=== PATIENT | female | born 1935 | race Caucasian/White ===

== ENCOUNTER 2016-12-26 13:46 | Outpatient (RCR) | payer MEDICARE, OTHER ==
--- OUTSIDE RECORDS SUMMARY | 2016-10-25 14:12 | XMS REPORT | Continuity of Care Document ---
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 Joselo MARCELINO 08/06/15 10:47pm Organ Donor No 08/06/15 10:47pm Problems Active Problems Medical Problem Onset Date Status Dizziness Unknown Acute Fracture of distal end of left femur Unknown 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 Postoperative anemia due to acute blood loss Unknown Acute Medications Current Home Medications Medication Dose Units Route Directions Days/Qty Instructions Start Date Senna 1 Tab 1 Tab Oral Every 12 Hours as needed for Constipation Calcium Carbonate/Vitamin D2 1 Each 1 Tab Oral Twice A Day 08/11/14 Cetirizine Hcl 10 Mg 10 Mg Oral Bedtime 08/11/14 Cholecalciferol 1,000 Unit 1,000 Unit Oral Twice A Day 08/11/14 Mag Hydrox/Al Hydrox/Simeth 360 Ml 30 Ml Oral Every 4HRS as needed for Heartburn 08/11/14 Polyethylene Glycol 119 Gm 17 Gm Oral Daily as needed for Constipation 08/11/14 Whey Protein Isolate 1 Each 2 Pkt Oral Tid With Meals 08/11/14 Ferrous Sulfate 325 Mg 325 Mg Oral Daily 08/06/15 Fesoterodine Fumarate 4 Mg 4 Mg Oral Daily @ 2000 08/06/15 Morphine Sulfate 30 Mg 30 Mg Oral Twice A Day 08/07/15 Dextran 70/Hypromellose/Pf 1 Each 1 Drop Each Eye Four Times Daily as needed for Dry Eyes 08/07/15 Alprazolam 0.5 Mg 0.5 Mg Oral Three Times A Day 08/07/15 Oxycodone Hcl/Acetaminophen 1 Each 1-2 Tab Oral Every 4-6 Hours as needed for Pain 08/07/15 Metoclopramide Hcl 5 Mg 2.5 Mg Oral Twice A Day TAKES 1/2 (5MG) TABLET 08/07/15 Potassium Chloride 10 Meq 10 Meq Oral Twice A Day 08/07/15 Famotidine 20 Mg 20 Mg Oral Twice A Day as needed for Heartburn Escitalopram Oxalate 20 Mg 20 Mg Oral Daily 08/07/15 Montelukast Sodium 10 Mg 10 Mg Oral Daily 08/07/15 Latanoprost 2.5 Ml 1 Drop Each Eye Bedtime 08/07/15 Sodium Chloride 126 Ml 2 Mercer Nasal Twice A Day as needed for Congestion 08/07/15 Sucralfate 1 Gm 1 Gm Oral Four Times Daily as needed for Stomach Upset 08/07/15 Past Home Medications Medication Directions Ordered Status Metoprolol Succinate 100 Mg Tab.sr.24h, 50 Mg Oral Twice A Day 11/28/06 Discontinued Sucralfate 1 Gm Tab, 11/28/06 Discontinued Hydrocodone Bitartrate/Ibuprofen 1 Ea Tab, 11/28/06 Discontinued Escitalopram Oxalate 10 Mg Tablet, 11/28/06 Discontinued Famotidine 20 Mg Tab, 11/28/06 Discontinued Promethazine Hcl 25 Mg Tablet, 11/28/06 Discontinued Trazodone Hcl 100 Mg Tablet, 11/28/06 Discontinued Esomeprazole Magnesium 40 Mg Capsule.dr, 40 Mg Oral Daily 11/28/06 Discontinued Alprazolam 1 Mg Tablet, 11/28/06 Discontinued Flurbiprofen Sodium 2.5 Ml Btl, 02/12/07 Discontinued [Lactobacillus] , 02/12/07 Discontinued Salmeterol Xinafoate/Fluticasone 100 Mcg/50 Mcg Inh, 02/12/07 Discontinued Alprazolam 1 Mg Tablet, 1 Mg Oral Bedtime 02/12/07 Discontinued [Metoprolol] , 02/16/09 Discontinued [Nexium] , 02/16/09 Discontinued [Zyrtec] , 02/16/09 Discontinued [Boniva] , 02/16/09 Discontinued [Hydrocodone] , 02/16/09 Discontinued [Xanax] , 02/16/09 Discontinued [Lunesta] , 02/16/09 Discontinued Cyclobenzaprine Hcl (Flexeril) 10 Mg Tablet, 02/16/09 Discontinued Levofloxacin 500 Mg Tab, 1 Each Oral Daily 02/16/09 Discontinued Acetaminophen/Hydrocodone Bitart 1 Ea Tab, 1 Tab Oral Every 4HRS as needed Discontinued Risedronate Sodium 150 Mg Tablet, 150 Mg Oral Every Month 01/14/12 Discontinued Loratadine 10 Mg Capsule, 10 Mg Oral Daily 01/14/12 Discontinued Escitalopram Oxalate 20 Mg Tablet, 20 Mg Oral Daily 01/14/12 Discontinued Polyethylene Glycol 17 Gm Pack, 1 Dose Oral Daily 01/14/12 Discontinued Montelukast Sodium 10 Mg Tab, 1 Tab Oral Daily 01/14/12 Discontinued Estrogens Conjugated 0.625 Mg Tablet, 1 Dose Transderm Daily 01/14/12 Discontinued Simvastatin 20 Mg Tablet, 20 Mg Oral Bedtime 01/14/12 Discontinued Calcium Carbonate/Vitamin D3 1 Each Tablet, 1 Tab Oral Twice A Day 01/14/12 Discontinued Solifenacin 5 Mg Tablet, 1 Tab Oral Daily 01/14/12 Discontinued Esomeprazole Magnesium 40 Mg Capsule.dr, 40 Mg Oral Daily 01/15/12 Discontinued Sucralfate 1 G Tablet, 1 G Oral Four Times Daily 01/15/12 Discontinued Morphine Sulfate (Morphine Sulfate Ir 15 Mg) 15 Mg Tablet, 15 Mg Oral Twice A Day 01/15/12 Discontinued Darifenacin 15 Mg Tab.sr.24h, 15 Mg Oral Daily 01/15/12 Discontinued Montelukast Sodium 10 Mg Tablet, 10 Mg Oral Daily 01/15/12 Discontinued Metoprolol Succinate 25 Mg Tab.sr.24h, 12.5 Mg Oral Twice A Day 01/21/12 Discontinued Alprazolam 0.25 Mg Tablet, 1 Tab Oral Every 6 Hours as needed 01/21/12 Discontinued Citalopram Hydrobromide 40 Mg Tablet, 1 Each Oral Daily 01/21/12 Discontinued Diphenoxylate Hcl/Atropine (Lomotil) 1 Tab Tablet, 1 Each Oral Every 4HRS as needed 01/21/12 Discontinued Metronidazole 500 Mg Tab, 1 Each Oral Three Times A Day 01/21/12 Discontinued Alprazolam 1 Mg Tablet, 0.5 Mg Oral @1200 03/02/13 Discontinued Alprazolam 1 Mg Tablet, 1 Mg Oral Q A.m. 03/02/13 Discontinued Oxycodone Hcl/Acetaminophen 1 Each Tablet, 1 Tab Oral Every 4HRS as needed for Pain 03/02/13 Discontinued Solifenacin 5 Mg Tablet, 5 Mg Oral Daily 03/02/13 Discontinued Morphine Sulfate 30 Mg Cap.er.pel, 30 Mg Oral Twice A Day 03/02/13 Discontinued Calcium Carbonate 500 Mg Tab.chew, 1500 Mg Oral Daily 03/02/13 Discontinued Montelukast Sodium 10 Mg Tablet, 10 Mg Oral Bedtime 03/02/13 Discontinued Carboxymethylcellulose Sodium 1 Each Droper.gel, 1 Drop Ophthalmic As Needed 03/02/13 Discontinued Morphine Sulfate 30 Mg Cap.er.pel, 15 Mg Oral @1200 03/02/13 Discontinued Pramipexole Di-Hcl 0.25 Mg Tablet, 0.25 Mg Oral Bedtime 03/02/13 Discontinued Diclofenac Sod 100 Gm Gel, 1 Applic Topically Four Times Daily 03/02/13 Discontinued Lubiprostone 24 Mcg Capsule, 24 Mcg Oral Twice A Day 03/02/13 Discontinued Morphine Sulfate 15 Mg Tab, 15 Mg Oral Three Times A Day 05/02/13 Discontinued Alprazolam 1 Mg Tab, 1 Mg Oral 05/02/13 Discontinued Alprazolam 1 Mg Tablet, 1 Mg Oral Every 6 Hours as needed 05/02/13 Discontinued Escitalopram Oxalate 20 Mg Tablet, 20 Mg Oral Daily 05/02/13 Discontinued Alprazolam 0.5 Mg Tab.rapdis, 0.5 Mg Oral Bedtime 08/11/14 Discontinued Acetaminophen 325 Mg Tablet, 650 Mg Oral Every 4HRS as needed for Temp Or Mild Pain 08/11/14 Discontinued Bisacodyl 10 Mg Supp, 10 Mg Rectal As Needed 08/11/14 Discontinued Famotidine 20 Mg Tablet, 20 Mg Oral Twice A Day 08/11/14 Discontinued [Milk Of Magnesia] , 30 Ml Oral Every 3 Days as needed for Constipation 08/11 Discontinued Solifenacin 10 Mg Tablet, 10 Mg Oral Daily 08/11/14 Discontinued Sucralfate 1 Gm Tablet, 1 Gm Oral Four Times Daily 08/11/14 Discontinued Potassium Chloride (Micro K) 10 Meq Capsule.sa, 20 Meq Oral Daily With Food 08/11/14 Discontinued [Natural Tears] , 2 Drops Each Eye As Needed as needed for Dry Eyes 08/11/14 Discontinued [[place] Mercer] , 1 Mercer Each Nostril As Needed as needed for Dry Nose Discontinued Fluorometholone 5 Ml Susp, 1 Drop Each Eye Three Times A Day 08/11/14 Discontinued [Pain Cream] , 1-2 Oz Topically Three Times A Day as needed for Joint Pain Discontinued [Oxycodone Hcl/Acetaminophen] 1 Tab Tablet, 1-2 Tab Oral Every 4HRS as needed for Severe Pain 08/24/14 Discontinued [Warfarin Sod] 2.5 Mg Tab, 2.5-5 Mg Oral Daily@1800 08/24/14 Discontinued Esomeprazole Magnesium 40 Mg Suspdr.pkt, 40 Mg Oral 08/06/15 Discontinued Social History Social History Problem Response Recorded Date/Time Alcohol Use Denies Use 08/06/2015 10:48pm Recreational Drug Use No 08/06/2015 10:48pm Recent Foreign Travel [facility] 04/06/2016 10:53am Do you dip or chew tobacco? No 08/06/2015 10:55pm Hospital Discharge Instructions No hospital discharge instructions. Plan of Care Prescriptions See Medication Section Functional Status No functional status results. Allergies, Adverse Reactions, Alerts Allergen Type Severity Reaction Status Last Updated Aspirin Allergy Unknown Active 07/13/06 nitrofurantoin ([id number]) Allergy Unknown Active 07/13/06 adhesive tape Allergy Mild RASH Active 02/16/09 Meperidine Allergy Unknown Active 05/14/07 SURGICAL TAPE Allergy Unknown Active 05/14/07 Immunizations No immunization records. Vital Signs No known vital signs results. Results Laboratory Results Test Name Result Units Flags Reference Collection Date/Time Result Date/ Time Comments White Blood Count 4.8 10^3/uL 4.3-11.0 04/06/2016 11:05am 04/06/2016 11 :14am Red Blood Count 4.25 10^6/uL L 4.35-5.85 04/06/2016 11:05am 04/06/2016 11 :14am Hemoglobin 12.4 G/DL 11.5-16.0 04/06/2016 11:0504/06/2016 11:14am Hematocrit 41 % 35-52 04/06/2016 11:0504/06/2016 11:14am Mean Corpuscular Volume 97 FL 80-99 04/06/2016 11:04/06/2016 11: 14am Mean Corpuscular Hemoglobin 29 PG 25-34 04/06/2016 11:0504/06/2016 11:14am Mean Corpuscular Hemoglobin Concent 30 G/DL L 32-36 04/06/2016 11:05 11:14am Red Cell Distribution Width 14.3 % 10.0-14.5 04/06/2016 11:052015 11:14am Platelet Count 107 10^3/uL L 130-400 04/06/2016 11:0504/06/2016 11: 14am Mean Platelet Volume 11.5 FL H 7.4-10.4 04/06/2016 11:0504/06/2016 11: 14am Neutrophils (%) (Auto) 42 % 42-75 04/06/2016 11:0504/06/2016 11: 14am Lymphocytes (%) (Auto) 42 % 12-44 04/06/2016 11:0504/06/2016 11: 14am Monocytes (%) (Auto) 9 % 0-12 04/06/2016 11:0504/06/2016 11:14am Eosinophils (%) (Auto) 8 % 0-10 04/06/2016 11:0504/06/2016 11:14am Basophils (%) (Auto) 0 % 0-10 04/06/2016 11:0504/06/2016 11:14am Neutrophils # (Auto) 2.0 X 10^3 1.8-7.8 04/06/2016 11:0504/06/2016 11:14am Lymphocytes # (Auto) 2.0 X 10^3 1.0-4.0 04/06/2016 11:0504/06/2016 11:14am Monocytes # (Auto) 0.4 X 10^3 0.0-1.0 04/06/2016 11:0504/06/2016 11: 14am Eosinophils # (Auto) 0.4 10^3/uL H 0.0-0.3 04/06/2016 11:0504/06/2016 11:14am Basophils # (Auto) 0.0 10^3/uL 0.0-0.1 04/06/2016 11:0504/06/2016 11 :14am Sodium Level 140 MMOL/L 135-145 04/06/2016 11:04/06/2016 11:52am Potassium Level 4.2 MMOL/L 3.6-5.0 04/06/2016 11:0504/06/2016 11: 52am Chloride Level 104 MMOL/L 98-107 04/06/2016 11:0504/06/2016 11:52am Carbon Dioxide Level 29 MMOL/L 21-32 04/06/2016 11:04/06/2016 11: 52am Anion Gap 7 MMOL/L 5-14 04/06/2016 11:0504/06/2016 11:52am Blood Urea Nitrogen 23 MG/DL H 7-18 04/06/2016 11:0504/06/2016 11: 52am Creatinine 1.29 MG/DL 0.60-1.30 04/06/2016 11:0504/06/2016 11:52am BUN/Creatinine Ratio 18 04/06/2016 11:0504/06/2016 11:52am Estimat Glomerular Filtration Rate 40 04/06/2016 11:052015 11:52am GFR INTERPRETIVE DATA UNITS FOR ESTIMATED GFR (eGFR): mL/min/1.73 M2 REFERENCE RANGE FOR ESTIMATED GFR (eGFR) eGFR NORMAL eGFR >60 MODERATELY DECREASED eGFR 30-59 SEVERLY DECREASED eGFR 15-29 KIDNEY FAILURE <15 (OR DIALYSIS) Glucose Level 58 MG/DL CL 70-105 04/06/2016 11:0504/06/2016 11:52am RESULTS CALLED TO GRACY AT 1152. RESULTS READ BACK: YES. Calcium Level 9.2 MG/DL 8.5-10.1 04/06/2016 11:0504/06/2016 11:52am Total Bilirubin 0.4 MG/DL 0.1-1.0 04/06/2016 11:0504/06/2016 11: 52am Alkaline Phosphatase 96 U/L 40-136 04/06/2016 11:05am 04/06/2016 11: 52am Aspartate Amino Transf (AST/SGOT) 25 U/L 5-34 04/06/2016 11:05am 2015 11:52am Alanine Aminotransferase (ALT/SGPT) 13 U/L 0-55 04/06/2016 11:05am 11:52am Lactate Dehydrogenase 214 U/L 125-220 04/06/2016 11:05am 04/06/2016 11: 52am Total Protein 6.6 G/DL 6.4-8.2 04/06/2016 11:05am 04/06/2016 11:52am Albumin 3.4 G/DL 3.2-4.5 04/06/2016 11:05am 04/06/2016 11:52am Kwlj-3-Iubvkaguhiktd 7.71 mg/L H 0.00-1.85 04/06/2016 11:05am 04/07/2016 6:57am Procedures No known history of procedures. Encounters Encounter Location Arrival/Admit Date Discharge/Depart Date Attending Provider Discharged Recurring [facility] 04/06/16 10:53am 11:59pm JANE WELLS MD
[~2016-12-26 13:46] MED LIST: ACET325T38 PO; ALPR.25T PO; ALPR0.5T7 PO; ALPR0.5T72 PO; ALPR1T; ALPR1T PO; BONIVA; BSC10SU PR; CALC-26 PO; CALC-28 PO; CARB1DRO12 OP; CETI10CA PO; CHOL10003 PO; CHOL100048 PO; CITA40TA19 PO; CLC500CT PO; CYCL10TA9; DARI15TA4 PO; DEXT1DRO OU; DICL100G18 TP; DICL100G20 TOP; DIPH1TAB25 PO; ESCI20TA2 PO; ESCI20TA45 PO; ESCT10T; ESOM20CA37 PO; ESOM40SU PO; EST.625T TD; FAMO-119 PO; FAMO20TA5 PO; FERR-84 PO; FESO4TAB PO; FESO8TAB PO; FLUO5DRO8 OU; FMT20TRX; HYDR-3720 PO; HYDR-3816 PO; HYDROCODONE; LACTOBACILLUS; LATA2.5D5 OU; LEVO500T69 PO; LORA10CA PO; LOTE5GEL OD; LUBI24CA PO; LUNESTA; MAG355OR17 PO; MELA3TAB PO; METO25TA PO; METO5TAB2 PO; METOPROLOL; METR500T PO; MNTL10T PO; MONT10TA24 PO; MORP-34 PO; MORP15TA8 PO; MORP30CA16 PO; MS15TCR PO; MTP100TCR PO; NAPR550T3 PO; NATURAL TEARS OU; NEXIUM; NF-ESOM40C PO; OCEAN SPRAY NSEACH; OXYC-465 PO; OXYC-471 PO; Oxycodone Hcl/Acetaminophen PO; PAIN CREAM TOP; POLY119P PO; POLY17PO23 PO; POTA10CA43 PO; POTA10TA10 PO; PRAM0.252 PO; PRM25T; PROT1PAC2 PO; RISE150T PO; SCR1T1; SENN1TAB76 PO; SIMV20TA3 PO; SLMFT1E; SODI126M NS; SOLI10TA4 PO; SOLI5TAB4 PO; SUCR1TAB PO; SUCR1TAB23 PO; SUCR1TAB36 PO; TRZ100T; Warfarin Sod PO; XANAX; ZYRTEC; [UNRECOGNIZED DRUG - CODE]; [UNRECOGNIZED DRUG - CODE]; milk of magnesia PO
[2016-12-26 14:07] LABS: BASOPHILS % (AUTO) 0 % (0-10); EOSINOPHILS # (AUTO) 0.5 10^3/uL (0.0-0.3); EOSINOPHILS % (AUTO) 9 % (0-10); LYMPHOCYTES # (AUTO) 2.2 X 10^3 (1.0-4.0); LYMPHOCYTES % (AUTO) 39 % (12-44); MEAN CORPUSCULAR HEMOGLOBIN 30 PG (25-34); MEAN CORPUSCULAR HGB CONC 31 G/DL (32-36); MEAN CORPUSCULAR VOLUME 96 FL (80-99); MEAN PLATELET VOLUME 11.3 FL (7.4-10.4); MONOCYTES # (AUTO) 0.3 X 10^3 (0.0-1.0); MONOCYTES % (AUTO) 6 % (0-12); NEUTROPHILS # (AUTO) 2.5 X 10^3 (1.8-7.8); NEUTROPHILS % (AUTO) 46 % (42-75); PLATELET COUNT 104 10^3/uL (130-400); RED BLOOD COUNT 4.43 10^6/uL (4.35-5.85); RED CELL DISTRIBUTION WIDTH 14.6 % (10.0-14.5); WHITE BLOOD COUNT 5.6 10^3/uL (4.3-11.0)
[2016-12-26 14:34] LABS: ALBUMIN 3.4 G/DL (3.2-4.5); BILIRUBIN,TOTAL 0.4 MG/DL (0.1-1.0); CALCIUM 9.6 MG/DL (8.5-10.1); CREATININE SERUM 1.41 MG/DL (0.60-1.30); TOTAL PROTEIN 6.6 G/DL (6.4-8.2)
[2016-12-26 15:00] LABS: THYROID STIMULATING HORMONE 0.48 UIU/ML (0.35-4.94)
== END 2017-01-23 | disposition home or self-care (01) ==
LOC: ONC 13:46
PROVIDERS: ATTEND Internal Medicine Hematology & Oncology
DX: D69.6 Thrombocytopenia, unspecified (principal); N18.9 Chronic kidney disease, unspecified; E83.52 Hypercalcemia; M81.0 Age-related osteoporosis without current pathological fracture; Z79.899 Other long term (current) drug therapy
CPT/HCPCS: 36415; 80053; 82232; 83615; 84439; 84443; 85025; 99213

== ENCOUNTER → 2017-02-10 | Outpatient (CLI) | payer MEDICARE, OTHER ==
[2017-02-10 18:53] LABS: BILIRUBIN,URINE NEGATIVE (NEGATIVE); KETONES,URINE NEGATIVE (NEGATIVE); LEUKOCYTE ESTERASE ,URINE 3+ (NEGATIVE); NITRITE,URINE NEGATIVE (NEGATIVE); PH,URINE 6 (5-9); PROTEIN,URINE NEGATIVE (NEGATIVE); UROBILINOGEN,URINE NORMAL (NORMAL)
== END ==
LOC: LAB 18:08
PROVIDERS: ATTEND Nurse Practitioner Family
DX: R31.9 Hematuria, unspecified (principal)
CPT/HCPCS: 81000; 87088; 87186

== ENCOUNTER 2017-07-03 13:24 | Outpatient (RCR) | payer MEDICARE, OTHER ==
[~2017-07-03 13:24] MED LIST changes: +NAPR-1067 PO; -NAPR550T3 PO
[2017-07-03 13:39] LABS: BASOPHILS % (AUTO) 0 % (0-10); EOSINOPHILS # (AUTO) 0.3 10^3/uL (0.0-0.3); EOSINOPHILS % (AUTO) 5 % (0-10); LYMPHOCYTES # (AUTO) 1.7 X 10^3 (1.0-4.0); LYMPHOCYTES % (AUTO) 33 % (12-44); MEAN CORPUSCULAR HEMOGLOBIN 30 PG (25-34); MEAN CORPUSCULAR HGB CONC 31 G/DL (32-36); MEAN CORPUSCULAR VOLUME 97 FL (80-99); MEAN PLATELET VOLUME 11.9 FL (7.4-10.4); MONOCYTES # (AUTO) 0.4 X 10^3 (0.0-1.0); MONOCYTES % (AUTO) 7 % (0-12); NEUTROPHILS # (AUTO) 2.9 X 10^3 (1.8-7.8); NEUTROPHILS % (AUTO) 55 % (42-75); PLATELET COUNT 94 10^3/uL (130-400); RED BLOOD COUNT 3.92 10^6/uL (4.35-5.85); RED CELL DISTRIBUTION WIDTH 13.3 % (10.0-14.5); WHITE BLOOD COUNT 5.2 10^3/uL (4.3-11.0)
[2017-07-03 14:08] LABS: ALBUMIN 3.2 GM/DL (3.2-4.5); BILIRUBIN,TOTAL 0.3 MG/DL (0.1-1.0); CALCIUM 9.9 MG/DL (8.5-10.1); CREATININE SERUM 1.82 MG/DL (0.60-1.30); POTASSIUM 4.5 MMOL/L (3.6-5.0); TOTAL PROTEIN 6.6 GM/DL (6.4-8.2)
== END 2017-07-08 | disposition home or self-care (01) ==
LOC: ONC 13:24
PROVIDERS: ATTEND Internal Medicine Hematology & Oncology
DX: D69.6 Thrombocytopenia, unspecified (principal); N18.9 Chronic kidney disease, unspecified; E83.52 Hypercalcemia; M81.0 Age-related osteoporosis without current pathological fracture; Z79.899 Other long term (current) drug therapy
CPT/HCPCS: 36415; 80053; 85025; 99213

== ENCOUNTER → 2017-09-08 | Outpatient (CLI) | payer MEDICARE, OTHER ==
--- NOTE | 2017-09-11 22:33 | Diagnostic Imaging Report ---
Bilateral screening mammogram 2D views with tomosynthesis The current study was also evaluated with a Computer Aided Detection (CAD) system. INDICATION: Screening. No current complaints stated on the questionnaire. COMPARISON: 08/02/16 FINDINGS: The breasts are composed of scattered fibroglandular densities. Intramammary lymph node is suggested in the far posterior aspect of the left breast with benign-appearing calcifications without concerning change from previous exams. The right breast demonstrate no definite change. Allowing for technique and positional differences, no suspicious change is seen. IMPRESSION: No significant change. ACR BI-RADS Category 2: Benign findings. Result letter will be mailed to the patient. Note: At least 10% of breast cancer is not imaged by mammography. Dictated by: Dictated on workstation # [id number]
== END ==
LOC: RAD 12:22
DX: Z12.31 Encounter for screening mammogram for malignant neoplasm of breast (principal)
CPT/HCPCS: 77067

== ENCOUNTER → 2017-09-11 | Outpatient (CLI) | payer MEDICARE, OTHER ==
--- NOTE | 2017-09-11 19:52 | Diagnostic Imaging Report ---
Three views of the left and three views of the right knees. INDICATION: Fall twice last week. FINDINGS: Three views of the right knee demonstrate total knee replacement and plate and screws internal fixation of the distal femur with deformity from an old fracture along the distal femoral shaft identified. No acute fracture is seen. No subluxation or dislocation. No dislocation of the hardware or arthroplasty prosthesis is seen. Three views of the left knee demonstrate interlocked intramedullary nail and wire fixation with the deformity in the distal femur related to an old fracture. No definite acute fracture. There is a total left knee arthroplasty in good position. No evidence of effusion. IMPRESSION: Bilateral knee replacement and internal fixation of distal femoral fractures. No acute fracture is seen. Dictated by: Dictated on workstation # [id number]
== END ==
LOC: RAD 11:03
PROVIDERS: ATTEND Nurse Practitioner Family
DX: Z04.3 Encounter for examination and observation following other accident (principal); Z96.651 Presence of right artificial knee joint; Z96.652 Presence of left artificial knee joint

== ENCOUNTER → 2017-09-11 | Outpatient (CLI) | payer MEDICARE, OTHER ==
--- NOTE | 2017-09-11 11:48 | Diagnostic Imaging Report ---
PROCEDURE: CT abdomen and pelvis without contrast. TECHNIQUE: Multiple contiguous axial images were obtained through the abdomen and pelvis without the use of intravenous contrast. INDICATION: Abdominal pain. Nausea and vomiting. FINDINGS: The lung bases appear clear. The liver, the spleen, the pancreas and adrenal glands are unremarkable for an unenhanced exam. There is suggestion of prior cholecystectomy. Tiny calcification projecting along the right hemidiaphragm is probably sequela of prior injury and infection and is unchanged from 2015. The kidneys demonstrate no hydronephrosis and no urinary tract stones are identified. Significant beam hardening artifacts are seen related to a left hip arthroplasty. There is also a kyphoplasty change seen in L1 vertebra. The abdominal aorta is normal in caliber. No para-aortic significantly enlarged lymph node is noted. No significant free fluid or fluid collection in the abdomen or pelvis is seen. There is suggestion of prior hysterectomy. No bowel obstruction. There is a staple line noted in the sigmoid the colon area. [id number] amounts of fecal material seen in the colon and rectum. IMPRESSION: No acute process. Dictated by: Dictated on workstation # [id number]
== END ==
LOC: RAD 10:59
DX: R10.9 Unspecified abdominal pain (principal); R11.2 Nausea with vomiting, unspecified
CPT/HCPCS: 74176

== ENCOUNTER → 2017-09-13 | Outpatient (CLI) | payer MEDICARE, OTHER ==
--- NOTE | 2017-09-13 15:54 | Diagnostic Imaging Report ---
EXAMINATION: Portable upright radiograph of the chest. INDICATION: Dyspnea. FINDINGS: The lungs are clear. The heart size is normal. No effusion or pneumothorax. The mediastinum and ulysses appear unremarkable. Deformities in the right mid ribs posteriorly are suggestive of old fractures. IMPRESSION: No acute process. Dictated by: Dictated on workstation # [id number]
== END ==
LOC: RAD 15:02
DX: R06.00 Dyspnea, unspecified (principal)
CPT/HCPCS: 71010

== ENCOUNTER 2018-01-01 13:04 | Outpatient (RCR) | payer MEDICARE, OTHER ==
[~2018-01-01 13:04] MED LIST changes: +HYDR-34 PO; -HYDR-3816 PO
[2018-01-01 13:14] LABS: BASOPHILS % (AUTO) 0 % (0-10); EOSINOPHILS # (AUTO) 0.1 10^3/uL (0.0-0.3); EOSINOPHILS % (AUTO) 1 % (0-10); HEMATOCRIT 42 % (35-52); LYMPHOCYTES # (AUTO) 2.8 X 10^3 (1.0-4.0); LYMPHOCYTES % (AUTO) 29 % (12-44); MEAN CORPUSCULAR HEMOGLOBIN 34 PG (25-34); MEAN CORPUSCULAR HGB CONC 33 G/DL (32-36); MEAN CORPUSCULAR VOLUME 103 FL (80-99); MEAN PLATELET VOLUME 11.2 FL (7.4-10.4); MONOCYTES # (AUTO) 0.7 X 10^3 (0.0-1.0); MONOCYTES % (AUTO) 8 % (0-12); NEUTROPHILS # (AUTO) 5.8 X 10^3 (1.8-7.8); NEUTROPHILS % (AUTO) 62 % (42-75); PLATELET COUNT 166 10^3/uL (130-400); RED BLOOD COUNT 4.08 10^6/uL (4.35-5.85); RED CELL DISTRIBUTION WIDTH 13.6 % (10.0-14.5); WHITE BLOOD COUNT 9.4 10^3/uL (4.3-11.0)
[2018-01-01 13:31] LABS: ALBUMIN 3.5 GM/DL (3.2-4.5); BILIRUBIN,TOTAL 0.3 MG/DL (0.1-1.0); CALCIUM 9.3 MG/DL (8.5-10.1); CREATININE SERUM 1.11 MG/DL (0.60-1.30); POTASSIUM 4.3 MMOL/L (3.6-5.0)
[2018-01-17] MEDS ORDERED: SULF1TAB35 PO (21:58)
== END 2018-04-01 | disposition home or self-care (01) ==
LOC: ONC 13:04
PROVIDERS: ATTEND Internal Medicine Hematology & Oncology
DX: D69.6 Thrombocytopenia, unspecified (principal); N18.9 Chronic kidney disease, unspecified; E83.52 Hypercalcemia; M81.0 Age-related osteoporosis without current pathological fracture; Z79.899 Other long term (current) drug therapy
CPT/HCPCS: 36415; 80053; 85025; 99213

== ENCOUNTER 2018-01-17 17:40 | Emergency (ER) | payer MEDICARE, OTHER ==
[~2018-01-17] VITALS: Ht 152.4 cm; Wt 58.5 kg
[2018-01-17 20:12] LABS: BILIRUBIN,URINE NEGATIVE (NEGATIVE); CLARITY,URINE VERY CLOUDY; COLOR,URINE YELLOW; GLUCOSE, URINE (UA) NEGATIVE (NEGATIVE); KETONES,URINE NEGATIVE (NEGATIVE); LEUKOCYTE ESTERASE ,URINE 3+ (NEGATIVE); NITRITE,URINE NEGATIVE (NEGATIVE); PH,URINE 5 (5-9); PROTEIN,URINE 2+ (NEGATIVE); UROBILINOGEN,URINE 1 MG/DL (NORMAL)
[2018-01-17 20:18] LABS: BASOPHILS % (AUTO) 0 % (0-10); EOSINOPHILS # (AUTO) 0.1 10^3/uL (0.0-0.3); EOSINOPHILS % (AUTO) 1 % (0-10); HEMATOCRIT 45 % (35-52); HEMOGLOBIN 14.3 G/DL (11.5-16.0); LYMPHOCYTES % (AUTO) 24 % (12-44); MEAN CORPUSCULAR HEMOGLOBIN 33 PG (25-34); MEAN CORPUSCULAR HGB CONC 32 G/DL (32-36); MEAN CORPUSCULAR VOLUME 103 FL (80-99); MEAN PLATELET VOLUME 11.6 FL (7.4-10.4); MONOCYTES # (AUTO) 0.6 X 10^3 (0.0-1.0); MONOCYTES % (AUTO) 7 % (0-12); NEUTROPHILS # (AUTO) 5.6 X 10^3 (1.8-7.8); NEUTROPHILS % (AUTO) 67 % (42-75); PLATELET COUNT 157 10^3/uL (130-400); RED BLOOD COUNT 4.39 10^6/uL (4.35-5.85); RED CELL DISTRIBUTION WIDTH 13.3 % (10.0-14.5); WHITE BLOOD COUNT 8.2 10^3/uL (4.3-11.0)
[2018-01-17 20:24] LABS: BACTERIA,URINE LARGE /HPF; SQUAMOUS EPITHELIAL CELL,UR 0-2 /HPF; WBC,URINE >100 /HPF
[2018-01-17 20:40] LABS: ALBUMIN 3.6 GM/DL (3.2-4.5); BILIRUBIN,TOTAL 0.4 MG/DL (0.1-1.0); CALCIUM 9.9 MG/DL (8.5-10.1); CREATININE SERUM 1.51 MG/DL (0.60-1.30); POTASSIUM 3.9 MMOL/L (3.6-5.0); TOTAL PROTEIN 6.6 GM/DL (6.4-8.2)
--- NOTE | 2018-01-17 20:41 | ED Fall/Injury ---
General Chief Complaint: Trauma-Non Activation Stated Complaint: FALL;DIZZINESS Nursing Triage Note: Family reports pt has had multiple falls over last several days after being restarted on her percocet. pt reports she hit her head several days ago and has bruising to R knee. Pt denies any new injuries. Source: patient Exam Limitations: no limitations History of Present Illness Date Seen by Provider: Jan 17, 2018 Time Seen by Provider: 20:38 Initial Comments To ER with reports of increased falls for the past 24 hours. She states she was doing well until then became unsteady on her feet at that point. She also reports some reduced urine output. Occurred: yesterday Severity: moderate Injuries/Pain Location: no injury Allergies and Home Medications Allergies Coded Allergies: adhesive tape (Verified Allergy, Mild, RASH, 09/26/16) aspirin (Verified Allergy, Unknown, 09/26/16) meperidine (Verified Allergy, Unknown, 09/26/16) nitrofurantoin (Verified Allergy, Unknown, 09/26/16) Uncoded Allergies: SURGICAL TAPE (Allergy, Unknown, 05/14/07) Home Medications Alprazolam 0.5 Mg Tablet, 0.5 MG PO TID Prescribed by: ANTOINE WILKINS on 09/30/16 0953 Calcium Carbonate/Vitamin D2 1 Each Tablet, 1 TAB PO BID, (Reported) Cetirizine Hcl 10 Mg Capsule, 10 MG PO HS, (Reported) Cholecalciferol (Vitamin D3) 1,000 Unit Capsule, 3,000 UNIT PO DAILY, (Reported) Diclofenac Sodium 100 Gm Gel..gram., TP DAILY PRN PRN for PAIN, (Reported) Escitalopram Oxalate 20 Mg Tablet, 20 MG PO DAILY, (Reported) Esomeprazole Magnesium 20 Mg Capsule.dr, 20 MG PO DAILY, (Reported) Famotidine 20 Mg Tablet, 20 MG PO BID PRN for HEARTBURN, (Reported) Ferrous Sulfate 325 Mg Tablet, 325 MG PO DAILY, (Reported) Fesoterodine Fumarate 8 Mg Tab.er.24h, 8 MG PO DAILY, (Reported) Hydrocodone Bit/Acetaminophen 1 Each Tablet, 1 EA PO Q4H PRN for MODERATE PAIN Prescribed by: ANTOINE WILKINS on 09/30/16 0953 Loteprednol Etabonate 5 Gm Drops.gel, 1 DROP OD DAILY, (Reported) Mag Hydrox/Al Hydrox/Simeth 360 Ml Oral.susp, 30 ML PO Q4H PRN for HEARTBURN, ( Reported) Melatonin 3 Mg Tablet, 9 MG PO HS PRN for SLEEP, (Reported) Metoclopramide HCl 5 Mg Tablet, 2.5 MG PO BID, (Reported) TAKES 1/2 (5MG) TABLET Montelukast Sodium 10 Mg Tablet, 10 MG PO DAILY, (Reported) Naproxen Sodium 550 Mg Tablet, 550 MG PO DAILY PRN for PAIN, (Reported) Polyethylene Glycol 119 Gm Btl, 17 GM PO DAILY PRN for CONSTIPATION, (Reported) Potassium Chloride 10 Meq Tablet.er, 10 MEQ PO BID, (Reported) Senna 1 Tab Tablet, 1 TAB PO Q12H PRN for CONSTIPATION, (Reported) Sodium Chloride 126 Ml Mist, 2 SPRAY NS BID PRN for CONGESTION, (Reported) Whey Protein Isolate 1 Each Powd.pack, 2 PKT PO TID WITH MEALS, (Reported) Patient Home Medication List Home Medication List Reviewed: Yes Review of Systems Constitutional: see HPI Eyes: No Symptoms Reported Ears, Nose, Mouth, Throat: no symptoms reported Respiratory: no symptoms reported Cardiovascular: no symptoms reported Genitourinary: see HPI, dysuria Musculoskeletal: no symptoms reported Skin: no symptoms reported Psychiatric/Neurological: No Symptoms Reported Past Ppuiyxy-Vqgicy-Bkapow Hx Patient Social History Recent Foreign Travel: No Contact w/Someone Who Travel: No Recent Infectious Disease Expo: No Recent Hopitalizations: No Immunizations Up To Date Tetanus Booster (TDap): Less than 5yrs Date of Pneumonia Vaccine: Sep 26, 2012 Date of Influenza Vaccine: Jul 09, 2016 Seasonal Allergies Seasonal Allergies: No Past Medical History Abdominal, Joint Replacement, Orthopedic COPD, Emphysema Hypertension 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 Disorders: No UTI-Chronic Gastroesophageal Reflux, Hiatal Hernia Osteoporosis, Arthritis, Fractures Glaucoma Hearing Impairment: Hard of Hearing Sleep Difficulties, Anxiety, Depression Adverse Reaction/Blood Tranf: No Family Medical History Alcoholism 19 FATHER Cardiovascular disease 19 MOTHER Colon cancer 19 MOTHER Diabetes mellitus 19 MOTHER Neoplasm 19 MOTHER (colon ca w/ mets to liver ) Respiratory disorder 19 FATHER No Family History of: AIDS Abdominal aortic aneurysm Arthritis Asthma Dementia Drug abuse Hypertension Kidney disease Myocardial infarction Psychosocial problem Seizure disorder Severe allergy Thyroid disease Tuberculosis Cancer, Diabetes Physical Exam Vital Signs Vital Signs - First Documented 01/17/18 17:49 Temp 98.0 Pulse 94 Resp 18 B/P (MAP) 116/71 (86) Pulse Ox 90 O2 Delivery Room Air Capillary Refill : Less Than 3 Seconds General Appearance: WD/WN, no apparent distress HEENT: PERRL/EOMI, normal ENT inspection Neck: non-tender, full range of motion Cardiovascular: regular rate, rhythm, no murmur Respiratory: normal breath sounds, no respiratory distress, no accessory muscle use Gastrointestinal: normal bowel sounds, non tender, soft Extremities: normal range of motion, non-tender Neurologic/Psychiatric: alert, normal mood/affect, oriented x 3 Skin: normal color, warm/dry [place] Coma Score Best Eye Response: (4) Open Spontaneously Best Verbal Response: (5) Oriented Best Motor Response: (6) Obeys Commands [place] Total: 15 Progress/Results/Core Measures Lab Results Laboratory Tests Test 01/17/18 20:05 01/17/18 20:12 Range/Units Urine Color YELLOW Urine Clarity VERY CLOUDY H Urine pH 5 5-9 Urine Specific Kell 1.015 L 1.016-1.022 Urine Protein 2+ H NEGATIVE Urine Glucose (UA) NEGATIVE NEGATIVE Urine Ketones NEGATIVE NEGATIVE Urine Nitrite NEGATIVE NEGATIVE Urine Bilirubin NEGATIVE NEGATIVE Urine Urobilinogen 1 NORMAL MG/DL Urine Leukocyte Esterase 3+ H NEGATIVE Urine RBC (Auto) 4+ H NEGATIVE Urine RBC 5-10 H /HPF Urine WBC >100 H /HPF Urine Squamous Epithelial Cells 0-2 /HPF Urine Crystals NONE /LPF Urine Bacteria LARGE H /HPF Urine Casts NONE /LPF Urine Mucus NEGATIVE /LPF Urine Culture Indicated YES White Blood Count 8.2 4.3-11.0 10^3/uL Red Blood Count 4.39 4.35-5.85 10^6/uL Hemoglobin 14.3 11.5-16.0 G/DL Hematocrit 45 35-52 % Mean Corpuscular Volume 103 H 80-99 FL Mean Corpuscular Hemoglobin 33 25-34 PG Mean Corpuscular Hemoglobin Concent 32 32-36 G/DL Red Cell Distribution Width 13.3 10.0-14.5 % Platelet Count 157 130-400 10^3/uL Mean Platelet Volume 11.6 H 7.4-10.4 FL Neutrophils (%) (Auto) 67 42-75 % Lymphocytes (%) (Auto) 24 12-44 % Monocytes (%) (Auto) 7 0-12 % Eosinophils (%) (Auto) 1 0-10 % Basophils (%) (Auto) 0 0-10 % Neutrophils # (Auto) 5.6 1.8-7.8 X 10^3 Lymphocytes # (Auto) 2.0 1.0-4.0 X 10^3 Monocytes # (Auto) 0.6 0.0-1.0 X 10^3 Eosinophils # (Auto) 0.1 0.0-0.3 10^3/uL Basophils # (Auto) 0.0 0.0-0.1 10^3/uL Sodium Level 141 135-145 MMOL/L Potassium Level 3.9 3.6-5.0 MMOL/L Chloride Level 99 98-107 MMOL/L Carbon Dioxide Level 29 21-32 MMOL/L Anion Gap 13 5-14 MMOL/L Blood Urea Nitrogen 24 H 7-18 MG/DL Creatinine 1.51 H 0.60-1.30 MG/DL Estimat Glomerular Filtration Rate 33 BUN/Creatinine Ratio 16 Glucose Level 150 H 70-105 MG/DL Calcium Level 9.9 8.5-10.1 MG/DL Total Bilirubin 0.4 0.1-1.0 MG/DL Aspartate Amino Transf (AST/SGOT) 45 H 5-34 U/L Alanine Aminotransferase (ALT/SGPT) 20 0-55 U/L Alkaline Phosphatase 108 40-136 U/L Total Protein 6.6 6.4-8.2 GM/DL Albumin 3.6 3.2-4.5 GM/DL My Orders Orders - SOFIA GIPSON APRN Cbc With Automated Diff (01/17/18 19:33) Comprehensive Metabolic Panel (01/17/18 19:33) Ua Culture If Indicated (01/17/18 19:33) Ct Head Wo (01/17/18 19:33) Knee, Right, 3 Views (01/17/18 19:33) Urine Culture (01/17/18 20:05) Ceftriaxone Injection (Rocephin Injectio (01/17/18 20:45) Ns Iv 1000 Ml (Sodium Chloride 0.9%) (01/17/18 21:00) Medications Given in ED Current Medications Medications Dose Ordered Sig/Missael Route Start Time Stop Time Status Last Admin Dose Admin Ceftriaxone Sodium 1000 mg/ Sodium Chloride 100 ml @ 200 mls/hr ONCE ONCE IV 01/17/18 20:45 01/17/18 21:14 DC 01/17/18 21:15 200 MLS/HR Vital Signs/I&O 01/17/18 17:49 Temp 98.0 Pulse 94 Resp 18 B/P (MAP) 116/71 (86) Pulse Ox 90 O2 Delivery Room Air Blood Pressure Mean: 86 Departure Impression Primary Impression: Urinary tract infection Disposition: HOME, SELF-CARE Condition: Stable Departure-Patient Inst. Decision time for Depature: 20:41 Referrals: IDLMA RAHMAN MD (PCP/Family) Primary Care Physician Patient Instructions: Urinary Tract Infection, Adult (DC) Add. Discharge Instructions: 1. Drink plenty of fluids 2. Antibiotics as directed starting tomorrow 3. Follow up with Dr. Rahman this week. Return to ER for any worsening symptoms. All discharge instructions reviewed with patient and/or family. Voiced understanding. Scripts Sulfamethoxazole/Trimethoprim (Bactrim Ds Tablet) 1 Each Tablet 1 EACH PO BID, #10 TAB Prov: SOFIA GIPSON APRN 01/17/18 SOFIA GIPSON APRN Jan 17, 2018 20:41
--- NOTE | 2018-01-17 20:42 | Diagnostic Imaging Report ---
PROCEDURE: CT head without contrast. TECHNIQUE: Multiple contiguous axial images were obtained through the brain without the use of intravenous contrast. INDICATION: Multiple falls, headache. FINDINGS: There is no mass, shift to the midline or hemorrhage to suggest an acute abnormality. The calcification in the basal ganglia on the left seen on the prior CT head exam of 05/02/2013 is again evident and no different. The ventricles appear stable in size when compared to the previous study. The cortical atrophy and the areas of encephalomalacia in the periventricular white matter noted on the prior study are again visualized and do not seem to have changed significantly. The bone windows show no sign of a fracture or destructive lesion. The orbits are symmetrical and within normal limits. The sinuses are generally clear. IMPRESSION: 1. There is no evidence for an acute intracranial abnormality. When compared to the previous study, there does not appear to have been any significant change. 2. If clinical concern regarding an acute abnormality persists, then MRI would be recommended for further study. Dictated by: Dictated on workstation # [id number]
[2018-01-17] MEDS ORDERED: cefTRIAXone INJECTION 1,000 MG in NS (IVPB) 100 ML IV ONE (20:45)
--- NOTE | 2018-01-17 20:54 | Diagnostic Imaging Report ---
EXAM: Right knee INDICATION: Knee pain 3 views were obtained. 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 There is also an orthopedic plate and screw fixation device extending along the lateral aspect of the distal femur. On this study, the orthopedic hardware seems stable. However, it should be noted that the proximal most portion of the orthopedic plate and screw fixation device is not included on this exam. The previous study also noted considerable deformity of the distal femur due to prior trauma. That finding is again evident. There is still no fracture or acute bony abnormality identified. The soft tissues are unremarkable. IMPRESSION: 1. There is no evidence for an acute bony abnormality. 2. The orthopedic hardware noted on the prior exam, where visualized, appears stable. Dictated by: Dictated on workstation # [id number]
[2018-01-17] MEDS ORDERED: NS IV 1000 ML 1,000 ML IV SCH (21:00)
[2018-01-17] MEDS ORDERED: SULF1TAB35 PO (21:58)
[2018-01-17 22:07] VITALS: BP 100/80
--- OUTSIDE RECORDS SUMMARY | 2018-01-18 11:56 | XMS REPORT | Continuity of Care Document ---
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 PRESENCE OF UNSPECIFIED ARTIFICIAL KNEE 02/18/2016 HENRIETTA STACY Ot R07.81 PLEURODYNIA 03/29/2016 JANE WELLS MD Ot D69.6 THROMBOCYTOPENIA, UNSPECIFIED 03/29/2016 JANE WELLS MD Ot E83.52 HYPERCALCEMIA 03/29/2016 JANE WELLS MD Ot M81.0 AGE-RELATED OSTEOPOROSIS W/O CURRENT PAT 03/29/2016 JANE WELLS MD Ot N18.9 CHRONIC KIDNEY DISEASE, UNSPECIFIED 03/29/2016 JANE WELLS MD Ot Z79.899 OTHER DETENTION (CURRENT) DRUG THERAPY 04/07/2016 JANE WELLS MD Ot D69.6 THROMBOCYTOPENIA, UNSPECIFIED 04/07/2016 JANE WELLS MD Ot E83.52 HYPERCALCEMIA 04/07/2016 JANE WELLS MD Ot M81.0 AGE-RELATED OSTEOPOROSIS W/O CURRENT PAT 04/07/2016 JANE WELLS MD Ot N18.9 CHRONIC KIDNEY DISEASE, UNSPECIFIED 04/07/2016 JANE WELLS MD Ot 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 04/07/2016 JANE WELLS MD Ot D69.6 THROMBOCYTOPENIA, UNSPECIFIED 04/07/2016 JANE WELLS MD Ot E83.52 HYPERCALCEMIA 04/07/2016 JANE WELLS MD Ot M81.0 AGE-RELATED OSTEOPOROSIS W/O CURRENT PAT 04/07/2016 JANE WELLS MD Ot N18.9 CHRONIC KIDNEY DISEASE, UNSPECIFIED 04/07/2016 JANE WELLS MD Ot 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 05/05/2016 JANE WELLS MD Ot D69.6 THROMBOCYTOPENIA, UNSPECIFIED 05/05/2016 JANE WELLS MD Ot E83.52 HYPERCALCEMIA 05/05/2016 JANE WELLS MD Ot M81.0 AGE-RELATED OSTEOPOROSIS W/O CURRENT PAT 05/05/2016 JANE WELLS MD Ot N18.9 CHRONIC KIDNEY DISEASE, UNSPECIFIED 05/05/2016 JANE WELLS MD Ot Z79.899 OTHER DETENTION (CURRENT) DRUG THERAPY 05/13/2016 JANE WELLS MD Ot D69.6 THROMBOCYTOPENIA, UNSPECIFIED 05/13/2016 JANE WELLS MD Ot E83.52 HYPERCALCEMIA 05/13/2016 JANE WELLS MD Ot M81.0 AGE-RELATED OSTEOPOROSIS W/O CURRENT PAT 05/13/2016 JANE WELLS MD Ot N18.9 CHRONIC KIDNEY DISEASE, UNSPECIFIED 05/13/2016 JANE WELLS MD Ot Z79.899 OTHER DETENTION (CURRENT) DRUG THERAPY 07/05/2016 JANE WELLS MD Ot D69.6 THROMBOCYTOPENIA, UNSPECIFIED 07/05/2016 JANE WELLS MD Ot E83.52 HYPERCALCEMIA 07/05/2016 JANE WELLS MD Ot M81.0 AGE-RELATED OSTEOPOROSIS W/O CURRENT PAT 07/05/2016 JANE WELLS MD Ot N18.9 CHRONIC KIDNEY DISEASE, UNSPECIFIED 07/05/2016 JANE WELLS MD Ot Z79.899 OTHER DETENTION (CURRENT) DRUG THERAPY 07/11/2016 JANE WELLS MD Ot D69.6 THROMBOCYTOPENIA, UNSPECIFIED 07/11/2016 JANE WELLS MD Ot E83.52 HYPERCALCEMIA 07/11/2016 JANE WELLS MD Ot M81.0 AGE-RELATED OSTEOPOROSIS W/O CURRENT PAT 07/11/2016 JANE WELLS MD Ot N18.9 CHRONIC KIDNEY DISEASE, UNSPECIFIED 07/11/2016 JANE WELLS MD Ot Z79.899 OTHER DETENTION (CURRENT) DRUG THERAPY 08/02/2016 Ot 793.81 MAMMOGRAPHIC MICROCLACIFICATION 08/02/2016 Ot V76.12 OTH SCREEN MAMMO-MALIGN NEOPLASM OF [place] 08/02/2016 Ot V72.84 EXAM PRE- OPERATIVE NOS 08/02/2016 Ot 793.80 UNSPEC ABNORMAL MAMMOGRAM 08/02/2016 Ot 569.9 INTESTINAL DISORDER NOS 08/02/2016 Ot 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 08/02/2016 Ot 959.7 LOWER LEG INJURY NOS 08/02/2016 Ot E000.8 OTHER EXTERNAL CAUSE STATUS 08/02/2016 Ot E849.0 ACCIDENT IN HOME 08/02/2016 Ot E888.9 FALL NOS 08/02/2016 Ot 272.4 HYPERLIPIDEMIA NEC/NOS 08/02/2016 Ot 401.9 HYPERTENSION NOS 08/02/2016 Ot 780.79 OTH MALAISE FATIGUE 08/02/2016 Ot V58.69 OTH MED,LT, CURRENT USE 08/02/2016 Ot 242.90 THYROTOX NOS NO CRISIS 08/02/2016 Ot 242.90 THYROTOX NOS NO CRISIS 08/02/2016 Ot 242.90 THYROTOX NOS NO CRISIS 08/02/2016 Ot 244.9 HYPOTHYROIDISM NOS 08/02/2016 FRANKY GELLER, ANTOINE Tran Ot V76.12 OTH SCREEN MAMMO-MALIGN NEOPLASM OF [place] 08/02/2016 ANTOINE WILKINS MD Ot 789.00 ABDOMINAL PAIN, UNSPECIFIED SITE 08/02/2016 FRANKY GELLER, ANTOINE Tran Ot 791.9 ABN URINE FINDINGS NEC 08/02/2016 HENRIETTA STACY Ot V76.12 OTH SCREEN MAMMO-MALIGN NEOPLASM OF [place] 08/02/2016 AARON GELLER, KASHMIR Browning Ot V72.84 EXAM PRE-OPERATIVE NOS 08/02/2016 RUSSELL GELLER, JANE Richards Ot 244.9 HYPOTHYROIDISM NOS 08/02/2016 RUSSELL GELLER, JANE Richards Ot 287.5 THROMBOCYTOPENIA NOS 08/02/2016 RUSSELL GELLER, JANE Richards Ot 401.9 HYPERTENSION NOS 08/02/2016 RUSSELL GELLER, JANE Richards Ot 496 CHR AIRWAY OBSTRUCT NEC 08/02/2016 JANE WELLS MD Ot 733.00 OSTEOPOROSIS NOS 08/02/2016 JANE WELLS MD Ot V58.69 OTH MED,LT,CURRENT USE 08/02/2016 AARON GELLER, KASHMIR Browning Ot 791.9 ABN URINE FINDINGS NEC 08/02/2016 KASHMIR WALKER MD Ot 996.77 OTH COMPLICATIONS DUE TO INTERNAL JOINT 08/02/2016 KASHMIR WALKER MD Ot V43.65 KNEE JOINT REPLACEMENT STATUS 08/02/2016 KASHMIR WALKER MD Ot V72.63 PRE-PROCEDURAL LABORATORY EXAMINATION 08/02/2016 KASHMIR WALKER MD Ot V72.83 EXAM PRE-OPERATIVE NEC 08/02/2016 AARON GELLER, KASHMIR Browning Ot V74.8 SCREEN-BACTERIAL DIS NEC 08/02/2016 FRANKY GELLER, ANTOINE Tran Ot 599.0 URIN TRACT INFECTION NOS 08/02/2016 JANE WELLS MD Ot 244.9 HYPOTHYROIDISM NOS 08/02/2016 JANE WELLS MD Ot 287.5 THROMBOCYTOPENIA NOS 08/02/2016 JANE WELLS MD Ot 401.9 HYPERTENSION NOS 08/02/2016 JANE WELLS MD Ot 496 CHR AIRWAY OBSTRUCT NEC 08/02/2016 JANE WELLS MD Ot 733.00 OSTEOPOROSIS NOS 08/02/2016 JANE WELLS MD Ot V58.69 OTH MED,LT,CURRENT USE 08/02/2016 Ot V72.84 EXAM PRE- OPERATIVE NOS 08/02/2016 CORY GELLER, MORALES Tran Ot 599.70 HEMATURIA, UNSPECIFIED 08/02/2016 ANTOINE WILKINS MD Ot D64.9 ANEMIA, UNSPECIFIED 08/02/2016 HENRIETTA STACY VP Ot 724.2 LUMBAGO 08/02/2016 HENRIETTA STACY VP Ot V76.12 OTH SCREEN MAMMO-MALIGN NEOPLASM OF [place] 08/02/2016 AUGUSTINE DUFFY MECHANICAL SHOP LABORER Ot R05 COUGH 08/02/2016 HENRIETTA STACY VP Ot R07.81 PLEURODYNIA 08/02/2016 JANE WELLS MD Ot D69.6 THROMBOCYTOPENIA, UNSPECIFIED 08/02/2016 JANE WELLS MD Ot E83.52 HYPERCALCEMIA 08/02/2016 JANE WELLS MD Ot M81.0 AGE-RELATED OSTEOPOROSIS W/O CURRENT PAT 08/02/2016 JANE WELLS MD Ot N18.9 CHRONIC KIDNEY DISEASE, UNSPECIFIED 08/02/2016 JANE WELLS MD Ot Z79.899 OTHER DETENTION (CURRENT) DRUG THERAPY 08/03/2016 ANTOINE WILKINS MD Ot Z12.31 ENCNTR SCREEN MAMMOGRAM FOR MALIGNANT NE 08/11/2016 ANTOINE WILKINS MD Ot Z12.31 ENCNTR SCREEN MAMMOGRAM FOR MALIGNANT NE 09/26/2016 JANE WELLS MD Ot D69.6 THROMBOCYTOPENIA, UNSPECIFIED 09/26/2016 JANE WELLS MD Ot E83.52 HYPERCALCEMIA 09/26/2016 JANE WELLS MD Ot M81.0 AGE-RELATED OSTEOPOROSIS W/O CURRENT PAT 09/26/2016 JANE WELLS MD Ot N18.9 CHRONIC KIDNEY DISEASE, UNSPECIFIED 09/26/2016 JANE WELLS MD Ot 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 09/28/2016 AARON GELLER, KASHMIR Browning Ot D64.9 ANEMIA, UNSPECIFIED 09/28/2016 KASHMIR WALKER MD, Ot F32.9 MAJOR DEPRESSIVE DISORDER, SINGLE EPISOD 09/28/2016 AARON GELELR, KASHMIR Browning Ot F41.9 ANXIETY DISORDER, UNSPECIFIED 09/28/2016 KASHMIR WALKER MD Ot G47.9 SLEEP DISORDER, UNSPECIFIED 09/28/2016 AARON GELLER, KASHMIR Browning Ot G89.4 CHRONIC PAIN SYNDROME 09/28/2016 AARON GELLER, KASHMIR Browning Ot H40.9 UNSPECIFIED GLAUCOMA 09/28/2016 AARON GELLER, KASHMIR Browning Ot H91.90 UNSPECIFIED HEARING LOSS, UNSPECIFIED EA 09/28/2016 AARON GELLER, KASHMIR Browning Ot I12.9 HYPERTENSIVE CHRONIC KIDNEY DISEASE W ST 09/28/2016 AARON GELLER, KASHMIR Browning Ot I95.9 HYPOTENSION, UNSPECIFIED 09/28/2016 KASHMIR WALKER MD, Ot J44.9 CHRONIC OBSTRUCTIVE PULMONARY DISEASE, U 09/28/2016 KSAHMIR WALKER MD, Ot K21.9 GASTRO-ESOPHAGEAL REFLUX DISEASE WITHOUT 09/28/2016 AARON GELLER, KASHMIR Browning Ot M80.051A AGE-REL OSTEOPOR W CURRENT PATH FRACTURE 09/28/2016 KASHMIR WALKER MD Ot N17.9 ACUTE KIDNEY FAILURE, UNSPECIFIED 09/28/2016 KASHMIR WALKER MD, Ot N18.9 CHRONIC KIDNEY DISEASE, UNSPECIFIED 09/28/2016 KASHMIR WALKER MD, Ot N28.9 DISORDER OF KIDNEY AND URETER, UNSPECIFI 09/28/2016 AARON GELLER, KASHMIR Browning Ot Z91.81 HISTORY OF FALLING 09/28/2016 KASHMIR WALKER MD Ot Z96.641 PRESENCE OF RIGHT ARTIFICIAL HIP JOINT 09/28/2016 KASHMIR WALKER MD Ot 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 RIGHT ARTIFICIAL KNEE JOINT 09/28/2016 KASHMIR WALKER MD Ot Z96.652 PRESENCE OF LEFT ARTIFICIAL KNEE JOINT 09/30/2016 KASHMIR WALKER MD Ot D62 ACUTE POSTHEMORRHAGIC ANEMIA 09/30/2016 KASHMIR WALKER MD, Ot D64.9 ANEMIA, UNSPECIFIED 09/30/2016 KASHMIR WALKER MD Ot F32.9 MAJOR DEPRESSIVE DISORDER, SINGLE EPISOD 09/30/2016 AARON MD, KASHMIR T Ot F41.9 ANXIETY DISORDER, UNSPECIFIED 09/30/2016 AARON GELLER, KASHMIR Browning Ot G47.9 SLEEP DISORDER, UNSPECIFIED 09/30/2016 AARON GELLER, KASHMIR Browning Ot G89.4 CHRONIC PAIN SYNDROME 09/30/2016 AARON GELLER, KASHMIR Browning Ot H40.9 UNSPECIFIED GLAUCOMA 09/30/2016 KASHMIR WALKER MD, Ot H91.90 UNSPECIFIED HEARING LOSS, UNSPECIFIED EA 09/30/2016 KASHMIR WALKER MD Ot I12.9 HYPERTENSIVE CHRONIC KIDNEY DISEASE W ST 09/30/2016 AARON GELLER, KASHMIR Browning Ot I95.9 HYPOTENSION, UNSPECIFIED 09/30/2016 AARON GELLER, KASHMIR Browning Ot J44.9 CHRONIC OBSTRUCTIVE PULMONARY DISEASE, U 09/30/2016 KASHMIR WALKER MD, Ot K21.9 GASTRO-ESOPHAGEAL REFLUX DISEASE WITHOUT 09/30/2016 AARON GELLER, KASHMIR Browning Ot M80.051A AGE-REL OSTEOPOR W CURRENT PATH FRACTURE 09/30/2016 KASHMIR WALKER MD Ot N17.9 ACUTE KIDNEY FAILURE, UNSPECIFIED 09/30/2016 KASHMIR WALKER MD, Ot N18.9 CHRONIC KIDNEY DISEASE, UNSPECIFIED 09/30/2016 KASHMIR WALKER MD, Ot N28.9 DISORDER OF KIDNEY AND URETER, UNSPECIFI 09/30/2016 AARON GELLER, KASHMIR Browning Ot Z91.81 HISTORY OF FALLING 09/30/2016 AARON GELLER, KASHMIR Browning Ot Z96.641 PRESENCE OF RIGHT ARTIFICIAL HIP JOINT 09/30/2016 KASHMIR WALKER MD Ot 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 RIGHT ARTIFICIAL KNEE JOINT 09/30/2016 KASHMIR WALKER MD Ot Z96.652 PRESENCE OF LEFT ARTIFICIAL KNEE JOINT 10/25/2016 RUSSELL GELLER, JANE Richards Ot D69.6 THROMBOCYTOPENIA, UNSPECIFIED 10/25/2016 JANE WELLS MD Ot E83.52 HYPERCALCEMIA 10/25/2016 JANE WELLS MD Ot M81.0 AGE-RELATED OSTEOPOROSIS W/O CURRENT PAT 10/25/2016 JANE WELLS MD Ot N18.9 CHRONIC KIDNEY DISEASE, UNSPECIFIED 10/25/2016 JANE WELLS MD Ot Z79.899 OTHER DETENTION (CURRENT) DRUG THERAPY 10/26/2016 JANE WELLS MD Ot D69.6 THROMBOCYTOPENIA, UNSPECIFIED 10/26/2016 JANE WELLS MD Ot E83.52 HYPERCALCEMIA 10/26/2016 RUSSELL GELLER, JANE Richards Ot M81.0 AGE-RELATED OSTEOPOROSIS W/O CURRENT PAT 10/26/2016 RUSSELL GELLER, JANE Richards Ot N18.9 CHRONIC KIDNEY DISEASE, UNSPECIFIED 10/26/2016 RUSSELL GELLER, JANE Richards Ot Z79.899 OTHER DETENTION (CURRENT) DRUG THERAPY 12/01/2016 JANE WELLS MD Ot D69.6 THROMBOCYTOPENIA, UNSPECIFIED 12/01/2016 RUSSELL GELLER, JANE Richards Ot E83.52 HYPERCALCEMIA 12/01/2016 RUSSELL GELLER, JANE Richards Ot M81.0 AGE-RELATED OSTEOPOROSIS W/O CURRENT PAT 12/01/2016 JANE WELLS MD Ot N18.9 CHRONIC KIDNEY DISEASE, UNSPECIFIED 12/01/2016 RUSSELL GELLER, JANE Richards Ot Z79.899 OTHER DETENTION (CURRENT) DRUG THERAPY 12/07/2016 JANE WELLS MD Ot D69.6 THROMBOCYTOPENIA, UNSPECIFIED 12/07/2016 JANE WELLS MD Ot E83.52 HYPERCALCEMIA 12/07/2016 JANE WELLS MD Ot M81.0 AGE-RELATED OSTEOPOROSIS W/O CURRENT PAT 12/07/2016 JANE WELLS MD Ot N18.9 CHRONIC KIDNEY DISEASE, UNSPECIFIED 12/07/2016 JANE WELLS MD Ot 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 12/08/2016 JANE WELLS MD, Ot D69.6 THROMBOCYTOPENIA, UNSPECIFIED 12/08/2016 JANE WELLS MD Ot E83.52 HYPERCALCEMIA 12/08/2016 JANE WELLS MD Ot M81.0 AGE-RELATED OSTEOPOROSIS W/O CURRENT PAT 12/08/2016 JANE WELLS MD Ot N18.9 CHRONIC KIDNEY DISEASE, UNSPECIFIED 12/08/2016 JANE WELLS MD Ot 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 01/23/2017 JANE WELLS MD Ot D69.6 THROMBOCYTOPENIA, UNSPECIFIED 01/23/2017 JANE WELLS MD Ot E83.52 HYPERCALCEMIA 01/23/2017 JANE WELLS MD Ot M81.0 AGE-RELATED OSTEOPOROSIS W/O CURRENT PAT 01/23/2017 JANE WELLS MD Ot N18.9 CHRONIC KIDNEY DISEASE, UNSPECIFIED 01/23/2017 JANE WELLS MD Ot 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 01/24/2017 JANE WELLS MD Ot D69.6 THROMBOCYTOPENIA, UNSPECIFIED 01/24/2017 RUSSELL GELLER, JANE Richards Ot E83.52 HYPERCALCEMIA 01/24/2017 RUSSELL GELLER, JANE Richards Ot M81.0 AGE-RELATED OSTEOPOROSIS W/O CURRENT PAT 01/24/2017 RUSSELL GELLER, JANE Richards Ot N18.9 CHRONIC KIDNEY DISEASE, UNSPECIFIED 01/24/2017 RUSSELL GELLER, JANE Richards Ot Z79.899 OTHER DETENTION (CURRENT) DRUG THERAPY 02/16/2017 AUGUSTINE DUFFY MECHANICAL SHOP LABORER Ot R31.9 HEMATURIA, UNSPECIFIED 03/03/2017 AUGUSTINE DUFFY MECHANICAL SHOP LABORER Ot R31.9 HEMATURIA, UNSPECIFIED 07/04/2017 DANIELA GELLER, JAZZ Ot D69.6 THROMBOCYTOPENIA, UNSPECIFIED 07/04/2017 JAZZ SUAREZ MD Ot E83.52 HYPERCALCEMIA 07/04/2017 JAZZ SUAREZ MD Ot M81.0 AGE-RELATED OSTEOPOROSIS W/O CURRENT PAT 07/04/2017 JAZZ SUAREZ MD Ot N18.9 CHRONIC KIDNEY DISEASE, UNSPECIFIED 07/04/2017 JAZZ SUAREZ MD Ot 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 07/08/2017 JAZZ SUAREZ MD Ot D69.6 THROMBOCYTOPENIA, UNSPECIFIED 07/08/2017 JAZZ SUAREZ MD Ot E83.52 HYPERCALCEMIA 07/08/2017 JAZZ SUAREZ MD Ot M81.0 AGE-RELATED OSTEOPOROSIS W/O CURRENT PAT 07/08/2017 JAZZ SUAREZ MD Ot N18.9 CHRONIC KIDNEY DISEASE, UNSPECIFIED 07/08/2017 JAZZ SUAREZ MD Ot 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 09/11/2017 DILMA RAHMAN MD Ot Z12.31 ENCNTR SCREEN MAMMOGRAM FOR MALIGNANT NE 09/12/2017 ATTILA BATISTA APRN Ot Z04.3 ENCOUNTER FOR EXAM AND OBSERVATION FOLLO 09/12/2017 ATTILA BATISTA APRN Ot 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 RIGHT ARTIFICIAL KNEE JOINT 09/12/2017 ATTILA BATISTA APRN Ot Z96.652 PRESENCE OF LEFT ARTIFICIAL KNEE JOINT 09/14/2017 DILMA RAHMAN MD Ot Z12.31 ENCNTR SCREEN MAMMOGRAM FOR MALIGNANT NE 09/14/2017 SCHOELING MD, DILMA D Ot R06.00 DYSPNEA, UNSPECIFIED 09/17/2017 ALYSSA BATISTAMERT RODRIGUEZ Ot Z04.3 ENCOUNTER FOR EXAM AND OBSERVATION FOLLO 09/17/2017 ALYSSA BATISTAMERT RODRIGUEZ Ot 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 RIGHT ARTIFICIAL KNEE JOINT 09/17/2017 ALYSSA BATISTALUIS Meeks MECHANICAL SHOP LABORER Ot Z96.652 PRESENCE OF LEFT ARTIFICIAL KNEE JOINT 10/03/2017 JOSIAH GELLER, DILMA D Ot Z12.31 ENCNTR SCREEN MAMMOGRAM FOR MALIGNANT NE 10/04/2017 JOSIAH GELLER, DILMA D Ot R10.9 UNSPECIFIED ABDOMINAL PAIN 10/04/2017 JOSIAH GELLER, DILMA D Ot R11.2 NAUSEA WITH VOMITING, UNSPECIFIED 10/04/2017 JOSIAH GELLER, DILMA D Ot R06.00 DYSPNEA, UNSPECIFIED 10/06/2017 JOSIAH GELLER, DILMA D Ot R10.9 UNSPECIFIED ABDOMINAL PAIN 10/06/2017 JOSIAH GELLER, DILMA D Ot R11.2 NAUSEA WITH VOMITING, UNSPECIFIED 10/06/2017 JOSIAH GELLER, DILMA D Ot R06.00 DYSPNEA, UNSPECIFIED 10/10/2017 ALYSSA BATISTALUIS Meeks MECHANICAL SHOP LABORER Ot Z04.3 ENCOUNTER FOR EXAM AND OBSERVATION FOLLO 10/10/2017 ATTILA BATISTA Jeanna RODRIGUEZ Ot 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 RIGHT ARTIFICIAL KNEE JOINT 10/10/2017 LESTER ALYSSAMERT RODRIGUEZ Ot Z96.652 PRESENCE OF LEFT ARTIFICIAL KNEE JOINT 10/16/2017 BATISTA ALYSSALUIS Meeks MECHANICAL SHOP LABORER Ot Z04.3 ENCOUNTER FOR EXAM AND OBSERVATION FOLLO 10/16/2017 LESTER ALYSSAMERT RODRIGUEZ Ot 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 RIGHT ARTIFICIAL KNEE JOINT 10/16/2017 LESTER ALYSSALUIS Meeks MECHANICAL SHOP LABORER Ot Z96.652 PRESENCE OF LEFT ARTIFICIAL KNEE JOINT 01/17/2018 Ot 272.4 HYPERLIPIDEMIA NEC/NOS 01/17/2018 Ot 401.9 HYPERTENSION NOS 01/17/2018 Ot 780.79 OTH MALAISE FATIGUE 01/17/2018 Ot V58.69 OTH MED,LT, CURRENT USE 01/17/2018 Ot 242.90 THYROTOX NOS NO CRISIS 01/17/2018 Ot 242.90 THYROTOX NOS NO CRISIS 01/17/2018 Ot 242.90 THYROTOX NOS NO CRISIS 01/17/2018 Ot 244.9 HYPOTHYROIDISM NOS 01/17/2018 ANTOINE WILKINS MD Ot V76.12 OTH SCREEN MAMMO-MALIGN NEOPLASM OF [place] 01/17/2018 ANTOINE WILKINS MD Ot 789.00 ABDOMINAL PAIN, UNSPECIFIED SITE 01/17/2018 ANTOINE WILKINS MD Ot 791.9 ABN URINE FINDINGS NEC 01/17/2018 TAWANNAHENRIETTA ERVIN Ot V76.12 OTH SCREEN MAMMO-MALIGN NEOPLASM OF [place] 01/17/2018 KASHMIR WALKER MD Ot V72.84 EXAM PRE-OPERATIVE NOS 01/17/2018 JANE WELLS MD Ot 244.9 HYPOTHYROIDISM NOS 01/17/2018 JANE WELLS MD Ot 287.5 THROMBOCYTOPENIA NOS 01/17/2018 JANE WELLS MD Ot 401.9 HYPERTENSION NOS 01/17/2018 JANE WELLS MD Ot 496 CHR AIRWAY OBSTRUCT NEC 01/17/2018 JANE WELLS MD Ot 733.00 OSTEOPOROSIS NOS 01/17/2018 JANE WELLS MD Ot V58.69 OTH MED,LT,CURRENT USE 01/17/2018 KASHMIR WALKER MD Ot 791.9 ABN URINE FINDINGS NEC 01/17/2018 KASHMIR WALKER MD Ot 996.77 OTH COMPLICATIONS DUE TO INTERNAL JOINT 01/17/2018 KASHMIR WALKER MD Ot V43.65 KNEE JOINT REPLACEMENT STATUS 01/17/2018 KASHMIR WALKER MD Ot V72.63 PRE-PROCEDURAL LABORATORY EXAMINATION 01/17/2018 KASHMIR WALKER MD Ot V72.83 EXAM PRE-OPERATIVE NEC 01/17/2018 KASHMIR WALKER MD Ot V74.8 SCREEN-BACTERIAL DIS NEC 01/17/2018 ANTOINE WILKINS MD Ot 599.0 URIN TRACT INFECTION NOS 01/17/2018 JANE WELLS MD Ot 244.9 HYPOTHYROIDISM NOS 01/17/2018 JANE WELLS MD Ot 287.5 THROMBOCYTOPENIA NOS 01/17/2018 JANE WELLS MD Ot 401.9 HYPERTENSION NOS 01/17/2018 JANE WELLS MD Ot 496 CHR AIRWAY OBSTRUCT NEC 01/17/2018 JANE WELLS MD Ot 733.00 OSTEOPOROSIS NOS 01/17/2018 JANE WELLS MD Ot V58.69 OTH MED,LT,CURRENT USE 01/17/2018 Ot V72.84 EXAM PRE- OPERATIVE NOS 01/17/2018 CORY GELLER, MORALES Tran Ot 599.70 HEMATURIA, UNSPECIFIED 01/17/2018 ANTOINE WILKINS MD Ot D64.9 ANEMIA, UNSPECIFIED 01/17/2018 HENRIETTA STACY VP Ot 724.2 LUMBAGO 01/17/2018 HENRIETTA STACY VP Ot V76.12 OTH SCREEN MAMMO-MALIGN NEOPLASM OF [place] 01/17/2018 AUGUSTINE DUFFY MECHANICAL SHOP LABORER Ot R05 COUGH 01/17/2018 HENRIETTA STACY VP Ot R07.81 PLEURODYNIA 01/17/2018 ANTOINE WILKINS MD Ot Z12.31 ENCNTR SCREEN MAMMOGRAM FOR MALIGNANT NE 01/17/2018 AUGUSTINE DUFFY APRN Ot R31.9 HEMATURIA, UNSPECIFIED 01/17/2018 JAZZ SUAREZ MD Ot D69.6 THROMBOCYTOPENIA, UNSPECIFIED 01/17/2018 DANIELA GELLER, JAZZ Ot E83.52 HYPERCALCEMIA 01/17/2018 JAZZ SUAREZ MD Ot M81.0 AGE-RELATED OSTEOPOROSIS W/O CURRENT PAT 01/17/2018 DANIELA GELLER, JAZZ Ot N18.9 CHRONIC KIDNEY DISEASE, UNSPECIFIED 01/17/2018 DANIELA GELLER, JAZZ Ot Z79.899 OTHER DETENTION (CURRENT) DRUG THERAPY 01/17/2018 JOSIAH GELLER, DILMA Raza Ot R10.9 UNSPECIFIED ABDOMINAL PAIN 01/17/2018 DILMA RAHMAN MD Ot R11.2 NAUSEA WITH VOMITING, UNSPECIFIED 01/17/2018 DILMA RAHMAN MD Ot Z12.31 ENCNTR SCREEN MAMMOGRAM FOR MALIGNANT NE 01/17/2018 ATTILA BATISTA APRN Ot Z04.3 ENCOUNTER FOR EXAM AND OBSERVATION FOLLO 01/17/2018 ATTILA BATISTA APRN Ot 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 RIGHT ARTIFICIAL KNEE JOINT 01/17/2018 ATTILA BATISTA APRN Ot Z96.652 PRESENCE OF LEFT ARTIFICIAL KNEE JOINT 01/17/2018 DILMA RAHMAN MD Ot R06.00 DYSPNEA, UNSPECIFIED 01/17/2018 Ot 272.4 HYPERLIPIDEMIA NEC/NOS 01/17/2018 Ot 401.9 HYPERTENSION NOS 01/17/2018 Ot 780.79 OTH MALAISE FATIGUE 01/17/2018 Ot V58.69 OTH MED,LT, CURRENT USE 01/17/2018 Ot 242.90 THYROTOX NOS NO CRISIS 01/17/2018 Ot 242.90 THYROTOX NOS NO CRISIS 01/17/2018 Ot 242.90 THYROTOX NOS NO CRISIS 01/17/2018 Ot 244.9 HYPOTHYROIDISM NOS 01/17/2018 ANTOINE WILKINS MD Ot V76.12 OTH SCREEN MAMMO-MALIGN NEOPLASM OF [place] 01/17/2018 ANTOINE WILKINS MD Ot 789.00 ABDOMINAL PAIN, UNSPECIFIED SITE 01/17/2018 ANTOINE WILKINS MD Ot 791.9 ABN URINE FINDINGS NEC 01/17/2018 TAWANNAHENRIETTA VP Ot V76.12 OTH SCREEN MAMMO-MALIGN NEOPLASM OF [place] 01/17/2018 KASHMIR WALKER MD Ot V72.84 EXAM PRE-OPERATIVE NOS 01/17/2018 JANE WELLS MD Ot 244.9 HYPOTHYROIDISM NOS 01/17/2018 JANE WELLS MD Ot 287.5 THROMBOCYTOPENIA NOS 01/17/2018 JANE WELLS MD Ot 401.9 HYPERTENSION NOS 01/17/2018 JANE WELLS MD Ot 496 CHR AIRWAY OBSTRUCT NEC 01/17/2018 JANE WELLS MD Ot 733.00 OSTEOPOROSIS NOS 01/17/2018 JANE WELLS MD Ot V58.69 OTH MED,LT,CURRENT USE 01/17/2018 KASHMIR WALKER MD Ot 791.9 ABN URINE FINDINGS NEC 01/17/2018 KASHMIR WALKER MD Ot 996.77 OTH COMPLICATIONS DUE TO INTERNAL JOINT 01/17/2018 KASHMIR WALKER MD Ot V43.65 KNEE JOINT REPLACEMENT STATUS 01/17/2018 KASHMIR WALKER MD Ot V72.63 PRE-PROCEDURAL LABORATORY EXAMINATION 01/17/2018 KASHMIR WALKER MD Ot V72.83 EXAM PRE-OPERATIVE NEC 01/17/2018 KASHMIR WALKER MD Ot V74.8 SCREEN-BACTERIAL DIS NEC 01/17/2018 FRANKY GELLER, ANTOINE Tran Ot 599.0 URIN TRACT INFECTION NOS 01/17/2018 JANE WELLS MD Ot 244.9 HYPOTHYROIDISM NOS 01/17/2018 JANE WELLS MD Ot 287.5 THROMBOCYTOPENIA NOS 01/17/2018 JANE WELLS MD Ot 401.9 HYPERTENSION NOS 01/17/2018 JANE WELLS MD Ot 496 CHR AIRWAY OBSTRUCT NEC 01/17/2018 JANE WELLS MD Susie Ot 733.00 OSTEOPOROSIS NOS 01/17/2018 RUSSELL GELLER, JANE Susie Ot V58.69 OTH MED,LT,CURRENT USE 01/17/2018 Ot V72.84 EXAM PRE- OPERATIVE NOS 01/17/2018 CORY GELELR, MORALES Tran Ot 599.70 HEMATURIA, UNSPECIFIED 01/17/2018 ANTOINE WILKINS MD Ot D64.9 ANEMIA, UNSPECIFIED 01/17/2018 HENRIETTA STACY VP Ot 724.2 LUMBAGO 01/17/2018 HENRIETTA STACY VP Ot V76.12 OTH SCREEN MAMMO-MALIGN NEOPLASM OF [place] 01/17/2018 AUGUSTINE DUFFY APRN Ot R05 COUGH 01/17/2018 HENRIETTA STACY Ot R07.81 PLEURODYNIA 01/17/2018 ANTOINE WILKINS MD Ot Z12.31 ENCNTR SCREEN MAMMOGRAM FOR MALIGNANT NE 01/17/2018 AUGUSTINE DUFFY APRN Ot R31.9 HEMATURIA, UNSPECIFIED 01/17/2018 JAZZ SUAREZ MD Ot D69.6 THROMBOCYTOPENIA, UNSPECIFIED 01/17/2018 JAZZ SUAREZ MD Ot E83.52 HYPERCALCEMIA 01/17/2018 JAZZ SUAREZ MD Ot M81.0 AGE-RELATED OSTEOPOROSIS W/O CURRENT PAT 01/17/2018 JAZZ SUAREZ MD Ot N18.9 CHRONIC KIDNEY DISEASE, UNSPECIFIED 01/17/2018 JAZZ SUAREZ MD Ot Z79.899 OTHER DETENTION (CURRENT) DRUG THERAPY 01/17/2018 JOSIAH GELLER, DILMA Raza Ot R10.9 UNSPECIFIED ABDOMINAL PAIN 01/17/2018 DILMA RAHMAN MD Ot R11.2 NAUSEA WITH VOMITING, UNSPECIFIED 01/17/2018 DILMA RAHMAN MD Ot Z12.31 ENCNTR SCREEN MAMMOGRAM FOR MALIGNANT NE 01/17/2018 ATTILA BATISTA APRN Ot Z04.3 ENCOUNTER FOR EXAM AND OBSERVATION FOLLO 01/17/2018 ATTILA BATISTA APRN Ot 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 RIGHT ARTIFICIAL KNEE JOINT 01/17/2018 ATTILA BATISTA APRN Ot Z96.652 PRESENCE OF LEFT ARTIFICIAL KNEE JOINT 01/17/2018 SCHOELING MD, DILMA D Ot R06.00 DYSPNEA, UNSPECIFIED 01/17/2018 Ot 272.4 HYPERLIPIDEMIA NEC/NOS 01/17/2018 Ot 401.9 HYPERTENSION NOS 01/17/2018 Ot 780.79 OTH MALAISE FATIGUE 01/17/2018 Ot V58.69 OTH MED,LT, CURRENT USE 01/17/2018 Ot 242.90 THYROTOX NOS NO CRISIS 01/17/2018 Ot 242.90 THYROTOX NOS NO CRISIS 01/17/2018 Ot 242.90 THYROTOX NOS NO CRISIS 01/17/2018 Ot 244.9 HYPOTHYROIDISM NOS 01/17/2018 FRANKY GELLER, ANTOINE Tran Ot V76.12 OTH SCREEN MAMMO-MALIGN NEOPLASM OF [place] 01/17/2018 ANTOINE WILKINS MD Ot 789.00 ABDOMINAL PAIN, UNSPECIFIED SITE 01/17/2018 ANTOINE WILKINS MD Ot 791.9 ABN URINE FINDINGS NEC 01/17/2018 TAWANNA HENRIETTA M ARNP Ot V76.12 OTH SCREEN MAMMO-MALIGN NEOPLASM OF [place] 01/17/2018 AARON GELLER, KASHMIR Browning Ot V72.84 EXAM PRE-OPERATIVE NOS 01/17/2018 JANE WELLS MD Ot 244.9 HYPOTHYROIDISM NOS 01/17/2018 JANE WELLS MD Ot 287.5 THROMBOCYTOPENIA NOS 01/17/2018 JANE WELLS MD Ot 401.9 HYPERTENSION NOS 01/17/2018 JANE WELLS MD Ot 496 CHR AIRWAY OBSTRUCT NEC 01/17/2018 JANE WELLS MD Ot 733.00 OSTEOPOROSIS NOS 01/17/2018 JANE WELLS MD Ot V58.69 OTH MED,LT,CURRENT USE 01/17/2018 KASHMIR WALKER MD Ot 791.9 ABN URINE FINDINGS NEC 01/17/2018 KASHMIR WALKER MD Ot 996.77 OTH COMPLICATIONS DUE TO INTERNAL JOINT 01/17/2018 KASHMIR WALKER MD Ot V43.65 KNEE JOINT REPLACEMENT STATUS 01/17/2018 KASHMIR WALKER MD Ot V72.63 PRE-PROCEDURAL LABORATORY EXAMINATION 01/17/2018 KASHMIR WALKER MD Ot V72.83 EXAM PRE-OPERATIVE NEC 01/17/2018 AARON GELLER, KASHMIR Browning Ot V74.8 SCREEN-BACTERIAL DIS NEC 01/17/2018 ANTOINE WILKINS MD Ot 599.0 URIN TRACT INFECTION NOS 01/17/2018 JANE WELLS MD Ot 244.9 HYPOTHYROIDISM NOS 01/17/2018 RUSSELL GELLER, JANE Susei Ot 287.5 THROMBOCYTOPENIA NOS 01/17/2018 RUSSELL GELLER, JANE Susie Ot 401.9 HYPERTENSION NOS 01/17/2018 RUSSELL GELLER, JANE Susie Ot 496 CHR AIRWAY OBSTRUCT NEC 01/17/2018 RUSSELL GELLER, JANE Richards Ot 733.00 OSTEOPOROSIS NOS 01/17/2018 RUSSELL GELLER, JANE Richards Ot V58.69 OTH MED,LT,CURRENT USE 01/17/2018 Ot V72.84 EXAM PRE- OPERATIVE NOS 01/17/2018 CORY GELLER, MORALES Tran Ot 599.70 HEMATURIA, UNSPECIFIED 01/17/2018 FRANKY GELLER, ANTOINE Tran Ot D64.9 ANEMIA, UNSPECIFIED 01/17/2018 HENRIETTA STACY VP Ot 724.2 LUMBAGO 01/17/2018 HENRIETTA STACYP Ot V76.12 OTH SCREEN MAMMO-MALIGN NEOPLASM OF [place] 01/17/2018 AUGUSTINE DUFFY APRN Ot R05 COUGH 01/17/2018 HENRIETTA STACYP Ot R07.81 PLEURODYNIA 01/17/2018 FRANKY GELLER, ANTOINE Tran Ot Z12.31 ENCNTR SCREEN MAMMOGRAM FOR MALIGNANT NE 01/17/2018 AUGUSTINE DUFFY APRN Ot R31.9 HEMATURIA, UNSPECIFIED 01/17/2018 DANIELA GELLER, JAZZ Ot D69.6 THROMBOCYTOPENIA, UNSPECIFIED 01/17/2018 DANIELA GELLER, JAZZ Ot E83.52 HYPERCALCEMIA 01/17/2018 DANIELA GELLER, JAZZ Ot M81.0 AGE-RELATED OSTEOPOROSIS W/O CURRENT PAT 01/17/2018 DANIELA GELLER, JAZZ Ot N18.9 CHRONIC KIDNEY DISEASE, UNSPECIFIED 01/17/2018 DANIELA GELLER, JAZZ Ot 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 01/17/2018 JOSIAH GELLER, DILMA Raza Ot R10.9 UNSPECIFIED ABDOMINAL PAIN 01/17/2018 JOSIAH GELLER, DILMA Raza Ot R11.2 NAUSEA WITH VOMITING, UNSPECIFIED 01/17/2018 JOSIAH GELLER, DILMA Raza Ot Z12.31 ENCNTR SCREEN MAMMOGRAM FOR MALIGNANT NE 01/17/2018 ATTILA BATISTA APRN Ot Z04.3 ENCOUNTER FOR EXAM AND OBSERVATION FOLLO 01/17/2018 ATTILA BATISTA N MECHANICAL [employer] LABORER Ot 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 RIGHT ARTIFICIAL KNEE JOINT 01/17/2018 ATTILA BATISTA N MECHANICAL SHOP LABORER Ot Z96.652 PRESENCE OF LEFT ARTIFICIAL KNEE JOINT 01/17/2018 JOSIAH GELLER, DILMA Raza Ot R06.00 DYSPNEA, UNSPECIFIED 01/17/2018 Ot 272.4 HYPERLIPIDEMIA NEC/NOS 01/17/2018 Ot 401.9 HYPERTENSION NOS 01/17/2018 Ot 780.79 OTH MALAISE FATIGUE 01/17/2018 Ot V58.69 OTH MED,LT, CURRENT USE 01/17/2018 Ot 242.90 THYROTOX NOS NO CRISIS 01/17/2018 Ot 242.90 THYROTOX NOS NO CRISIS 01/17/2018 Ot 242.90 THYROTOX NOS NO CRISIS 01/17/2018 Ot 244.9 HYPOTHYROIDISM NOS 01/17/2018 FRANKY GELLER, ANTOINE Tran Ot V76.12 OTH SCREEN MAMMO-MALIGN NEOPLASM OF [place] 01/17/2018 FRANKY GELLER, ANTOINE Tran Ot 789.00 ABDOMINAL PAIN, UNSPECIFIED SITE 01/17/2018 FRANKY GELLER, ANTOINE Tran Ot 791.9 ABN URINE FINDINGS NEC 01/17/2018 HENRIETTA STACY Ot V76.12 OTH SCREEN MAMMO-MALIGN NEOPLASM OF [place] 01/17/2018 AARON GELLER, KASHMIR Browning Ot V72.84 EXAM PRE-OPERATIVE NOS 01/17/2018 RUSSELL GELLER, JANE Richards Ot 244.9 HYPOTHYROIDISM NOS 01/17/2018 JANE WELLS MD Ot 287.5 THROMBOCYTOPENIA NOS 01/17/2018 RUSSELL GELLER, JANE Richards Ot 401.9 HYPERTENSION NOS 01/17/2018 RUSSELL GELLER, JANE Richards Ot 496 CHR AIRWAY OBSTRUCT NEC 01/17/2018 JANE WELLS MD Ot 733.00 OSTEOPOROSIS NOS 01/17/2018 JANE WELLS MD Ot V58.69 OTH MED,LT,CURRENT USE 01/17/2018 KASHMIR WALKER MD Ot 791.9 ABN URINE FINDINGS NEC 01/17/2018 KASHMIR WALKER MD Ot 996.77 OTH COMPLICATIONS DUE TO INTERNAL JOINT 01/17/2018 KASHMIR WALKER MD Ot V43.65 KNEE JOINT REPLACEMENT STATUS 01/17/2018 KASHMIR WALKER MD Ot V72.63 PRE-PROCEDURAL LABORATORY EXAMINATION 01/17/2018 KASHMIR WALKER MD Ot V72.83 EXAM PRE-OPERATIVE NEC 01/17/2018 AARON GELLER, KASHMIR Browning Ot V74.8 SCREEN-BACTERIAL DIS NEC 01/17/2018 FRANKY GELLER, ANTOINE A Ot 599.0 URIN TRACT INFECTION NOS 01/17/2018 RUSSELL GELLER, JANE Susie Ot 244.9 HYPOTHYROIDISM NOS 01/17/2018 RUSSELL GELLER, JANE Susie Ot 287.5 THROMBOCYTOPENIA NOS 01/17/2018 RUSSELL GELLER, JANE Susie Ot 401.9 HYPERTENSION NOS 01/17/2018 RUSSELL GELLER, JANE Richards Ot 496 CHR AIRWAY OBSTRUCT NEC 01/17/2018 RUSSELL GELLER, JAEN Richards Ot 733.00 OSTEOPOROSIS NOS 01/17/2018 RUSSELL GELLER, JANE Richards Ot V58.69 OTH MED,LT,CURRENT USE 01/17/2018 Ot V72.84 EXAM PRE- OPERATIVE NOS 01/17/2018 CORY GELLER, MORALES A Ot 599.70 HEMATURIA, UNSPECIFIED 01/17/2018 FRANKY GELLER, ANTOINE Tran Ot D64.9 ANEMIA, UNSPECIFIED 01/17/2018 HENRIETTA STACY VP Ot 724.2 LUMBAGO 01/17/2018 HENRIETTA STACYP Ot V76.12 OTH SCREEN MAMMO-MALIGN NEOPLASM OF [place] 01/17/2018 AUGUSTINE DUFFY MECHANICAL SHOP LABORER Ot R05 COUGH 01/17/2018 HENRIETTA STACY VP Ot R07.81 PLEURODYNIA 01/17/2018 FRANKY GELLER, ANTOINE Tran Ot Z12.31 ENCNTR SCREEN MAMMOGRAM FOR MALIGNANT NE 01/17/2018 AUGUSTINE DUFFY MECHANICAL SHOP LABORER Ot R31.9 HEMATURIA, UNSPECIFIED 01/17/2018 DANIELA GELLER, JAZZ Ot D69.6 THROMBOCYTOPENIA, UNSPECIFIED 01/17/2018 DANIELA GELLER, JAZZ Ot E83.52 HYPERCALCEMIA 01/17/2018 JAZZ SUAREZ MD Ot M81.0 AGE-RELATED OSTEOPOROSIS W/O CURRENT PAT 01/17/2018 JAZZ SUAREZ MD Ot N18.9 CHRONIC KIDNEY DISEASE, UNSPECIFIED 01/17/2018 DANIELA GELLER, JAZZ Ot 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 01/17/2018 JOSIAH GELLER, DILMA Raza Ot R10.9 UNSPECIFIED ABDOMINAL PAIN 01/17/2018 JOSIAH GELLER, DILMA Raza Ot R11.2 NAUSEA WITH VOMITING, UNSPECIFIED 01/17/2018 JOSIAH GELLER, DILMA Raza Ot Z12.31 ENCNTR SCREEN MAMMOGRAM FOR MALIGNANT NE 01/17/2018 ATTILA BATISTA Jeanna MECHANICAL SHOP LABORER Ot Z04.3 ENCOUNTER FOR EXAM AND OBSERVATION FOLLO 01/17/2018 ATTILA BATISTA Jeanna MECHANICAL SHOP LABORER Ot 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 RIGHT ARTIFICIAL KNEE JOINT 01/17/2018 ATTILA BATISTA Jeanna MECHANICAL SHOP LABORER Ot Z96.652 PRESENCE OF LEFT ARTIFICIAL KNEE JOINT 01/17/2018 JOSIAH GELLER, DILMA Raza Ot R06.00 DYSPNEA, UNSPECIFIED 01/18/2018 Ot 272.4 HYPERLIPIDEMIA NEC/NOS 01/18/2018 Ot 401.9 HYPERTENSION NOS 01/18/2018 Ot 780.79 OTH MALAISE FATIGUE 01/18/2018 Ot V58.69 OTH MED,LT, CURRENT USE 01/18/2018 Ot 242.90 THYROTOX NOS NO CRISIS 01/18/2018 Ot 242.90 THYROTOX NOS NO CRISIS 01/18/2018 Ot 242.90 THYROTOX NOS NO CRISIS 01/18/2018 Ot 244.9 HYPOTHYROIDISM NOS 01/18/2018 ANTOINE WILKINS MD Ot V76.12 OTH SCREEN MAMMO-MALIGN NEOPLASM OF [place] 01/18/2018 FRANKY GELLER, ANTOINE Tran Ot 789.00 ABDOMINAL PAIN, UNSPECIFIED SITE 01/18/2018 ANTONIE WILKINS MD Ot 791.9 ABN URINE FINDINGS NEC 01/18/2018 HENRIETTA STACY Ot V76.12 OTH SCREEN MAMMO-MALIGN NEOPLASM OF [place] 01/18/2018 KASHMIR WALKER MD Ot V72.84 EXAM PRE-OPERATIVE NOS 01/18/2018 JANE WELLS MD Ot 244.9 HYPOTHYROIDISM NOS 01/18/2018 JANE WELLS MD Ot 287.5 THROMBOCYTOPENIA NOS 01/18/2018 JANE WELLS MD Ot 401.9 HYPERTENSION NOS 01/18/2018 JANE WELLS MD Ot 496 CHR AIRWAY OBSTRUCT NEC 01/18/2018 JANE WELLS MD Ot 733.00 OSTEOPOROSIS NOS 01/18/2018 JANE WELLS MD Ot V58.69 OTH MED,LT,CURRENT USE 01/18/2018 KASHMIR WALKER MD Ot 791.9 ABN URINE FINDINGS NEC 01/18/2018 KASHMIR WALKER MD Ot 996.77 OTH COMPLICATIONS DUE TO INTERNAL JOINT 01/18/2018 AARON GELLER, KASHMIR Browning Ot V43.65 KNEE JOINT REPLACEMENT STATUS 01/18/2018 AARON GELLER, KASHMIR Browning Ot V72.63 PRE-PROCEDURAL LABORATORY EXAMINATION 01/18/2018 AARON GELLER, KASHMIR Browning Ot V72.83 EXAM PRE-OPERATIVE NEC 01/18/2018 AARON GELLER, KASHMIR Browning Ot V74.8 SCREEN-BACTERIAL DIS NEC 01/18/2018 FRANKY GELLER, ANTOINE Tran Ot 599.0 URIN TRACT INFECTION NOS 01/18/2018 RUSSELL GELLER, JANE Richards Ot 244.9 HYPOTHYROIDISM NOS 01/18/2018 RUSSELL GELLER, JANE Richards Ot 287.5 THROMBOCYTOPENIA NOS 01/18/2018 RUSSELL GELLER, JANE Richards Ot 401.9 HYPERTENSION NOS 01/18/2018 RUSSELL GELLER, JANE Richards Ot 496 CHR AIRWAY OBSTRUCT NEC 01/18/2018 RUSSELL GELLER, JANE Richards Ot 733.00 OSTEOPOROSIS NOS 01/18/2018 RUSSELL GELLER, JANE Richards Ot V58.69 OTH MED,LT,CURRENT USE 01/18/2018 Ot V72.84 EXAM PRE- OPERATIVE NOS 01/18/2018 CORY GELLER, MORALES Tran Ot 599.70 HEMATURIA, UNSPECIFIED 01/18/2018 ANTOINE WILKINS MD Ot D64.9 ANEMIA, UNSPECIFIED 01/18/2018 HENRIETTA STACY VP Ot 724.2 LUMBAGO 01/18/2018 HENRIETTA STACY Ot V76.12 OTH SCREEN MAMMO-MALIGN NEOPLASM OF [place] 01/18/2018 AUGUSTINE DUFFY MECHANICAL SHOP LABORER Ot R05 COUGH 01/18/2018 HENRIETTA STACY VP Ot R07.81 PLEURODYNIA 01/18/2018 ANTOINE WILKINS MD Ot Z12.31 ENCNTR SCREEN MAMMOGRAM FOR MALIGNANT NE 01/18/2018 AUGUSTINE DUFFY APRN Ot R31.9 HEMATURIA, UNSPECIFIED 01/18/2018 JAZZ SUAREZ MD Ot D69.6 THROMBOCYTOPENIA, UNSPECIFIED 01/18/2018 JAZZ SUAREZ MD Ot E83.52 HYPERCALCEMIA 01/18/2018 JAZZ SUAREZ MD Ot M81.0 AGE-RELATED OSTEOPOROSIS W/O CURRENT PAT 01/18/2018 JAZZ SUAREZ MD Ot N18.9 CHRONIC KIDNEY DISEASE, UNSPECIFIED 01/18/2018 DANIELA GELLER, JAZZ Ot Z79.899 OTHER DETENTION (CURRENT) DRUG THERAPY 01/18/2018 JOSIAH GELLER, DILMA Raza Ot R10.9 UNSPECIFIED ABDOMINAL PAIN 01/18/2018 DILMA RAHMAN MD Ot R11.2 NAUSEA WITH VOMITING, UNSPECIFIED 01/18/2018 DILMA RAHMAN MD Ot Z12.31 ENCNTR SCREEN MAMMOGRAM FOR MALIGNANT NE 01/18/2018 ATTILA BATISTA MECHANICAL SH[employer] LABORER Ot Z04.3 ENCOUNTER FOR EXAM AND OBSERVATION FOLLO 01/18/2018 ATTILA BATISTA MECHANICAL SHOP LABORER Ot 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 RIGHT ARTIFICIAL KNEE JOINT 01/18/2018 ATTILA BATISTA APRN Ot Z96.652 PRESENCE OF LEFT ARTIFICIAL KNEE JOINT 01/18/2018 JOSIAH GELLER, DILMA Raza Ot R06.00 DYSPNEA, UNSPECIFIED Procedures Code Description Performed By Performed On 78.65 REMOVE INT FIX DEV-FEMUR 08/21/2014 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 08/21/2014 [id number] REPOSITION L FEMUR SHAFT WITH INTRAMED F 08/07/2015 [id number] REPOSITION RIGHT LOWER FEMUR WITH INT FI 09/26/2016 Results Test Result Range Complete urinalysis with reflex to culture - 09/26/16 11:10 Urine color determination YELLOW NRG Urine clarity determination CLEAR NRG Urine pH measurement by test strip 5 5-9 Specific gravity of urine by test strip 1.025 1.016- 1.022 Urine protein assay by test strip, semi-quantitative 1+ NEGATIVE Urine glucose detection by automated test strip NEGATIVE NEGATIVE Erythrocytes detection in urine sediment by light microscopy 3+ NEGATIVE Urine ketones detection by automated test strip NEGATIVE NEGATIVE Urine nitrite detection by test strip NEGATIVE NEGATIVE Urine total bilirubin detection by test strip 1+ NEGATIVE Urine urobilinogen measurement by automated test strip (mass/volume) 1 mg/dL NORMAL Urine leukocyte esterase detection by dipstick 1+ NEGATIVE Automated urine sediment erythrocyte count by microscopy (number/high power field) [HPF] NRG Automated urine sediment leukocyte count by microscopy (number/high power field ) NONE NRG Bacteria detection in urine sediment by light microscopy NEGATIVE NRG Squamous epithelial cells detection in urine sediment by light microscopy 0-2 NRG Crystals detection in urine sediment by light microscopy NONE NRG Casts detection in urine sediment by light microscopy NONE NRG Mucus detection in urine sediment by light microscopy NEGATIVE NRG Complete urinalysis with reflex to culture NO NRG Complete blood count (CBC) with automated white blood cell (WBC) differential - 09/26/16 11:22 Blood leukocytes automated count (number/volume) 9.7 10*3/uL 4.3-11.0 Blood erythrocytes automated count (number/volume) 4.11 10*6/uL 4.35-5.85 Venous blood hemoglobin measurement (mass/volume) 12.2 g/dL 11.5-16.0 Blood hematocrit (volume fraction) 40 % 35-52 Automated erythrocyte mean corpuscular volume 98 [foz_us] 80-99 Automated erythrocyte mean corpuscular hemoglobin (mass per erythrocyte) 30 pg 25-34 Automated erythrocyte mean corpuscular hemoglobin concentration measurement ( mass/volume) 30 g/dL 32-36 Automated erythrocyte distribution width ratio 13.7 % 10.0-14.5 Automated blood platelet count (count/volume) 117 10*3/uL 130-400 Automated blood platelet mean volume measurement 11.8 [foz_us] 7.4-10.4 Automated blood neutrophils/100 leukocytes 66 % 42-75 Automated blood lymphocytes/100 leukocytes 24 % 12-44 Blood monocytes/100 leukocytes 7 % 0-12 Automated blood eosinophils/100 leukocytes 2 % 0-10 Automated blood basophils/100 leukocytes 0 % 0-10 Blood neutrophils automated count (number/volume) 6.4 10*3 1.8-7.8 Blood lymphocytes automated count (number/volume) 2.3 10*3 1.0-4.0 Blood monocytes automated count (number/volume) 0.7 10*3 0.0-1.0 Automated eosinophil count 0.2 10*3/uL 0.0-0.3 Automated blood basophil count (count/volume) 0.0 10*3/uL 0.0-0.1 PT panel in platelet poor plasma by coagulation assay - 09/26/16 11:22 Prothrombin time (PT) in platelet poor plasma by coagulation assay 13.6 s 12.2-14.7 INR in platelet poor plasma or blood by coagulation assay 1.1 0.8-1.4 Activated partial thromboplastin time (aPTT) in platelet poor plasma bycoagulation assay - 09/26/16 11:22 Activated partial thromboplastin time (aPTT) in platelet poor plasma bycoagulation assay 27 s 24-35 Comprehensive metabolic panel - 09/26/16 11:22 Serum or plasma sodium measurement (moles/volume) 140 mmol/L 135-145 Serum or plasma potassium measurement (moles/volume) 4.5 mmol/L 3.6-5.0 Serum or plasma chloride measurement (moles/volume) 105 mmol/L 98-107 Carbon dioxide 28 mmol/L 21-32 Serum or plasma anion gap determination (moles/volume) 7 mmol/L 5-14 Serum or plasma urea nitrogen measurement (mass/volume) 34 mg/dL 7-18 Serum or plasma creatinine measurement (mass/volume) 1.94 mg/dL 0.60-1.30 Serum or plasma urea nitrogen/creatinine mass ratio 18 NRG Serum or plasma creatinine measurement with calculation of estimated glomerular filtration rate 25 NRG Serum or plasma glucose measurement (mass/volume) 116 mg/dL 70-105 Serum or plasma calcium measurement (mass/volume) 9.4 mg/dL 8.5-10.1 Serum or plasma total bilirubin measurement (mass/volume) 0.4 mg/dL 0.1-1.0 Serum or plasma alkaline phosphatase measurement (enzymatic activity/volume) 81 U/L 40-136 Serum or plasma aspartate aminotransferase measurement (enzymatic activity/ volume) 27 U/L 5-34 Serum or plasma alanine aminotransferase measurement (enzymatic activity/volume ) 13 U/L 0-55 Serum or plasma protein measurement (mass/volume) 6.5 g/dL 6.4-8.2 Serum or plasma albumin measurement (mass/volume) 3.4 g/dL 3.2-4.5 Methicillin resistant Staphylococcus aureus (MRSA) screening culture - 14:15 Methicillin resistant Staphylococcus aureus (MRSA) screening culture [facility] Whole blood hemoglobin and hematocrit panel - 09/27/16 04:45 Venous blood hemoglobin measurement (mass/volume) 7.0 g/dL 11.5-16.0 Blood hematocrit (volume fraction) 24 % 35-52 Whole blood basic metabolic panel - 09/27/16 04:45 Serum or plasma sodium measurement (moles/volume) 139 mmol/L 135-145 Serum or plasma potassium measurement (moles/volume) 5.4 mmol/L 3.6-5.0 Serum or plasma chloride measurement (moles/volume) 109 mmol/L 98-107 Carbon dioxide 25 mmol/L 21-32 Serum or plasma anion gap determination (moles/volume) 5 mmol/L 5-14 Serum or plasma urea nitrogen measurement (mass/volume) 37 mg/dL 7-18 Serum or plasma creatinine measurement (mass/volume) 2.40 mg/dL 0.60-1.30 Serum or plasma urea nitrogen/creatinine mass ratio 15 NRG Serum or plasma creatinine measurement with calculation of estimated glomerular filtration rate 19 NRG Serum or plasma glucose measurement (mass/volume) 183 mg/dL 70-105 Serum or plasma calcium measurement (mass/volume) 7.8 mg/dL 8.5-10.1 RED CELLS LEUKO REDUCED AS1 - 09/27/16 08:33 RED CELLS LEUKO REDUCED AS1 TRANSFUSED 09/27/16 [facility] Blood type T Indirect antibody screen panel - 09/27/16 08:33 ABO+Rh group AP NRG Transfusion band number [id number] Blood group antibody screen NEGATIVE NR Automated blood complete blood count (hemogram) panel - 09/28/16 05:05 Blood leukocytes automated count (number/volume) 4.0 10*3/uL 4.3-11.0 Blood erythrocytes automated count (number/volume) 2.79 10*6/uL 4.35-5.85 Venous blood hemoglobin measurement (mass/volume) 8.3 g/dL 11.5-16.0 Blood hematocrit (volume fraction) 26 % 35-52 Automated erythrocyte mean corpuscular volume 94 [foz_us] 80-99 Automated erythrocyte mean corpuscular hemoglobin (mass per erythrocyte) 30 pg 25-34 Automated erythrocyte mean corpuscular hemoglobin concentration measurement ( mass/volume) 32 g/dL 32-36 Automated erythrocyte distribution width ratio 16.5 % 10.0-14.5 Automated blood platelet count (count/volume) 41 10*3/uL 130-400 Automated blood platelet mean volume measurement 12.6 [foz_us] 7.4-10.4 Whole blood basic metabolic panel - 09/28/16 05:05 Serum or plasma sodium measurement (moles/volume) 140 mmol/L 135-145 Serum or plasma potassium measurement (moles/volume) 4.6 mmol/L 3.6-5.0 Serum or plasma chloride measurement (moles/volume) 111 mmol/L 98-107 Carbon dioxide 25 mmol/L 21-32 Serum or plasma anion gap determination (moles/volume) 4 mmol/L 5-14 Serum or plasma urea nitrogen measurement (mass/volume) 30 mg/dL 7-18 Serum or plasma creatinine measurement (mass/volume) 1.75 mg/dL 0.60-1.30 Serum or plasma urea nitrogen/creatinine mass ratio 17 NRG Serum or plasma creatinine measurement with calculation of estimated glomerular filtration rate 28 NRG Serum or plasma glucose measurement (mass/volume) 119 mg/dL 70-105 Serum or plasma calcium measurement (mass/volume) 7.1 mg/dL 8.5-10.1 Automated blood complete blood count (hemogram) panel - 09/28/16 11:56 Blood leukocytes automated count (number/volume) 6.3 10*3/uL 4.3-11.0 Blood erythrocytes automated count (number/volume) 2.93 10*6/uL 4.35-5.85 Venous blood hemoglobin measurement (mass/volume) 8.7 g/dL 11.5-16.0 Blood hematocrit (volume fraction) 28 % 35-52 Automated erythrocyte mean corpuscular volume 94 [foz_us] 80-99 Automated erythrocyte mean corpuscular hemoglobin (mass per erythrocyte) 30 pg 25-34 Automated erythrocyte mean corpuscular hemoglobin concentration measurement ( mass/volume) 32 g/dL 32-36 Automated erythrocyte distribution width ratio 16.5 % 10.0-14.5 Automated blood platelet count (count/volume) 53 10*3/uL 130-400 Automated blood platelet mean volume measurement 12.2 [foz_us] 7.4-10.4 Automated blood complete blood count (hemogram) panel - 09/29/16 05:20 Blood leukocytes automated count (number/volume) 5.9 10*3/uL 4.3-11.0 Blood erythrocytes automated count (number/volume) 2.58 10*6/uL 4.35-5.85 Venous blood hemoglobin measurement (mass/volume) 7.7 g/dL 11.5-16.0 Blood hematocrit (volume fraction) 25 % 35-52 Automated erythrocyte mean corpuscular volume 95 [foz_us] 80-99 Automated erythrocyte mean corpuscular hemoglobin (mass per erythrocyte) 30 pg 25-34 Automated erythrocyte mean corpuscular hemoglobin concentration measurement ( mass/volume) 31 g/dL 32-36 Automated erythrocyte distribution width ratio 16.0 % 10.0-14.5 Automated blood platelet count (count/volume) 56 10*3/uL 130-400 Automated blood platelet mean volume measurement 12.0 [foz_us] 7.4-10.4 Whole blood basic metabolic panel - 09/29/16 05:20 Serum or plasma sodium measurement (moles/volume) 142 mmol/L 135-145 Serum or plasma potassium measurement (moles/volume) 4.2 mmol/L 3.6-5.0 Serum or plasma chloride measurement (moles/volume) 115 mmol/L 98-107 Carbon dioxide 24 mmol/L 21-32 Serum or plasma anion gap determination (moles/volume) 3 mmol/L 5-14 Serum or plasma urea nitrogen measurement (mass/volume) 22 mg/dL 7-18 Serum or plasma creatinine measurement (mass/volume) 1.11 mg/dL 0.60-1.30 Serum or plasma urea nitrogen/creatinine mass ratio 20 NRG Serum or plasma creatinine measurement with calculation of estimated glomerular filtration rate 47 NRG Serum or plasma glucose measurement (mass/volume) 90 mg/dL 70-105 Serum or plasma calcium measurement (mass/volume) 7.1 mg/dL 8.5-10.1 Automated blood complete blood count (hemogram) panel - 09/30/16 05:43 Blood leukocytes automated count (number/volume) 5.2 10*3/uL 4.3-11.0 Blood erythrocytes automated count (number/volume) 3.13 10*6/uL 4.35-5.85 Venous blood hemoglobin measurement (mass/volume) 9.3 g/dL 11.5-16.0 Blood hematocrit (volume fraction) 29 % 35-52 Automated erythrocyte mean corpuscular volume 92 [foz_us] 80-99 Automated erythrocyte mean corpuscular hemoglobin (mass per erythrocyte) 30 pg 25-34 Automated erythrocyte mean corpuscular hemoglobin concentration measurement ( mass/volume) 32 g/dL 32-36 Automated erythrocyte distribution width ratio 16.3 % 10.0-14.5 Automated blood platelet count (count/volume) 56 10*3/uL 130-400 Automated blood platelet mean volume measurement 12.0 [foz_us] 7.4-10.4 Whole blood basic metabolic panel - 09/30/16 05:43 Serum or plasma sodium measurement (moles/volume) 139 mmol/L 135-145 Serum or plasma potassium measurement (moles/volume) 4.2 mmol/L 3.6-5.0 Serum or plasma chloride measurement (moles/volume) 112 mmol/L 98-107 Carbon dioxide 25 mmol/L 21-32 Serum or plasma anion gap determination (moles/volume) 2 mmol/L 5-14 Serum or plasma urea nitrogen measurement (mass/volume) 18 mg/dL 7-18 Serum or plasma creatinine measurement (mass/volume) 0.85 mg/dL 0.60-1.30 Serum or plasma urea nitrogen/creatinine mass ratio 21 NRG Serum or plasma creatinine measurement with calculation of estimated glomerular filtration rate > NRG Serum or plasma glucose measurement (mass/volume) 84 mg/dL 70-105 Serum or plasma calcium measurement (mass/volume) 6.8 mg/dL 8.5-10.1 Complete urinalysis with reflex to culture - 02/10/17 18:35 Urine color determination YELLOW NRG Urine clarity determination CLEAR NRG Urine pH measurement by test strip 6 5-9 Specific gravity of urine by test strip 1.020 1.016- 1.022 Urine protein assay by test strip, semi-quantitative NEGATIVE NEGATIVE Urine glucose detection by automated test strip NEGATIVE NEGATIVE Erythrocytes detection in urine sediment by light microscopy 4+ NEGATIVE Urine ketones detection by automated test strip NEGATIVE NEGATIVE Urine nitrite detection by test strip NEGATIVE NEGATIVE Urine total bilirubin detection by test strip NEGATIVE NEGATIVE Urine urobilinogen measurement by automated test strip (mass/volume) NORMAL NORMAL Urine leukocyte esterase detection by dipstick 3+ NEGATIVE Automated urine sediment erythrocyte count by microscopy (number/high power field) [HPF] NRG Automated urine sediment leukocyte count by microscopy (number/high power field ) [HPF] NRG Bacteria detection in urine sediment by light microscopy FEW NRG Crystals detection in urine sediment by light microscopy NONE NRG Casts detection in urine sediment by light microscopy PRESENT NRG Mucus detection in urine sediment by light microscopy NEGATIVE NRG Complete urinalysis with reflex to culture YES NRG Hyaline casts detection in urine sediment by light microscopy 10-25 NRG Bacterial urine culture - 02/10/17 18:35 Bacterial urine culture [id number] NRG COLONY COUNT >100,000/ML NRG FTX;REPORTABLE SENSITIVITY REPORTED 02/12/17 9:35 NRG FREE TEXT ENTRY 2 PLUS, NRG FREE TEXT ENTRY 3 MIXED GRAM POSITIVES <10,000/ML NRG Bacterial susceptibility panel - 02/10/17 18:35 Gentamicin susceptibility test by minimum inhibitory concentration < = NRG Trimethoprim/sulfamethoxazole susceptibility test by minimum inhibitoryconcentration <= NRG Ampicillin susceptibility test by minimum inhibitory concentration 4 NRG Tobramycin susceptibility test by minimum inhibitory concentration < = NRG Cefazolin susceptibility test by minimum inhibitory concentration < = NRG Ceftriaxone susceptibility test by minimum inhibitory concentration <= NRG Ampicillin/sulbactam susceptibility test by minimum inhibitory concentration <= NRG Piperacillin/tazobactam susceptibility test by minimum inhibitory concentration <= NRG Ciprofloxacin susceptibility test by minimum inhibitory concentration <= NRG Meropenem susceptibility test by minimum inhibitory concentration < = NRG Nitrofurantoin susceptibility test by minimum inhibitory concentration <= NRG Aztreonam susceptibility test by minimum inhibitory concentration < = NRG Extended spectrum beta lactamase (ESBL) producing bacteria susceptibility test by minimum inhibitory concentration - NRG Complete urinalysis with reflex to culture - 01/17/18 20:05 Urine color determination YELLOW NRG Urine clarity determination VERY CLOUDY NRG Urine pH measurement by test strip 5 5-9 Specific gravity of urine by test strip 1.015 1.016- 1.022 Urine protein assay by test strip, semi-quantitative 2+ NEGATIVE Urine glucose detection by automated test strip NEGATIVE NEGATIVE Erythrocytes detection in urine sediment by light microscopy 4+ NEGATIVE Urine ketones detection by automated test strip NEGATIVE NEGATIVE Urine nitrite detection by test strip NEGATIVE NEGATIVE Urine total bilirubin detection by test strip NEGATIVE NEGATIVE Urine urobilinogen measurement by automated test strip (mass/volume) 1 mg/dL NORMAL Urine leukocyte esterase detection by dipstick 3+ NEGATIVE Automated urine sediment erythrocyte count by microscopy (number/high power field) [HPF] NRG Automated urine sediment leukocyte count by microscopy (number/high power field ) > [HPF] NRG Bacteria detection in urine sediment by light microscopy LARGE NRG Squamous epithelial cells detection in urine sediment by light microscopy 0-2 NRG Crystals detection in urine sediment by light microscopy NONE NRG Casts detection in urine sediment by light microscopy NONE NRG Mucus detection in urine sediment by light microscopy NEGATIVE NRG Complete urinalysis with reflex to culture YES NRG Complete blood count (CBC) with automated white blood cell (WBC) differential - 01/17/18 20:12 Blood leukocytes automated count (number/volume) 8.2 10*3/uL 4.3-11.0 Blood erythrocytes automated count (number/volume) 4.39 10*6/uL 4.35-5.85 Venous blood hemoglobin measurement (mass/volume) 14.3 g/dL 11.5-16.0 Blood hematocrit (volume fraction) 45 % 35-52 Automated erythrocyte mean corpuscular volume 103 [foz_us] 80-99 Automated erythrocyte mean corpuscular hemoglobin (mass per erythrocyte) 33 pg 25-34 Automated erythrocyte mean corpuscular hemoglobin concentration measurement ( mass/volume) 32 g/dL 32-36 Automated erythrocyte distribution width ratio 13.3 % 10.0-14.5 Automated blood platelet count (count/volume) 157 10*3/uL 130-400 Automated blood platelet mean volume measurement 11.6 [foz_us] 7.4-10.4 Automated blood neutrophils/100 leukocytes 67 % 42-75 Automated blood lymphocytes/100 leukocytes 24 % 12-44 Blood monocytes/100 leukocytes 7 % 0-12 Automated blood eosinophils/100 leukocytes 1 % 0-10 Automated blood basophils/100 leukocytes 0 % 0-10 Blood neutrophils automated count (number/volume) 5.6 10*3 1.8-7.8 Blood lymphocytes automated count (number/volume) 2.0 10*3 1.0-4.0 Blood monocytes automated count (number/volume) 0.6 10*3 0.0-1.0 Automated eosinophil count 0.1 10*3/uL 0.0-0.3 Automated blood basophil count (count/volume) 0.0 10*3/uL 0.0-0.1 Comprehensive metabolic panel - 01/17/18 20:12 Serum or plasma sodium measurement (moles/volume) 141 mmol/L 135-145 Serum or plasma potassium measurement (moles/volume) 3.9 mmol/L 3.6-5.0 Serum or plasma chloride measurement (moles/volume) 99 mmol/L 98-107 Carbon dioxide 29 mmol/L 21-32 Serum or plasma anion gap determination (moles/volume) 13 mmol/L 5-14 Serum or plasma urea nitrogen measurement (mass/volume) 24 mg/dL 7-18 Serum or plasma creatinine measurement (mass/volume) 1.51 mg/dL 0.60-1.30 Serum or plasma urea nitrogen/creatinine mass ratio 16 NRG Serum or plasma creatinine measurement with calculation of estimated glomerular filtration rate 33 NRG Serum or plasma glucose measurement (mass/volume) 150 mg/dL 70-105 Serum or plasma calcium measurement (mass/volume) 9.9 mg/dL 8.5-10.1 Serum or plasma total bilirubin measurement (mass/volume) 0.4 mg/dL 0.1-1.0 Serum or plasma alkaline phosphatase measurement (enzymatic activity/volume) 108 U/L 40-136 Serum or plasma aspartate aminotransferase measurement (enzymatic activity/ volume) 45 U/L 5-34 Serum or plasma alanine aminotransferase measurement (enzymatic activity/volume ) 20 U/L 0-55 Serum or plasma protein measurement (mass/volume) 6.6 g/dL 6.4-8.2 Serum or plasma albumin measurement (mass/volume) 3.6 g/dL 3.2-4.5 Encounters ACCT No. Visit Date/Time Discharge Status Pt. Type Provider Facility Loc./Unit Complaint [id number] 01/17/2018 17:42:00 01/17/2018 22:07:00 DIS Emergency SOFIA GIPSON APRN [facility] ER FALL;DIZZINESS [id number] 01/01/2018 13:04:00 01/01/2018 23:59:59 CLS Outpatient JAZZ SUAREZ MD [facility] ONC [id number] 09/13/2017 15:02:00 09/13/2017 23:59:59 CLS Outpatient DILMA RAHMAN MD [facility] RAD R06.09 [id number] 09/11/2017 11:03:00 09/11/2017 23:59:59 CLS Outpatient ATTILA BATISTA APRN [facility] RAD KNEE PAIN M25.561 [id number] 09/11/2017 10:59:00 09/11/2017 23:59:59 CLS Outpatient DILMA RAHMAN MD [facility] RAD R10.9 UNSPECIFIED ABDOMINAL PAIN [id number] 09/08/2017 12:22:00 09/08/2017 23:59:59 CLS Outpatient DILMA RAHMAN MD [facility] RAD MAMMO SCREENING [id number] 09/05/2017 15:51:00 09/05/2017 23:59:59 CLS Preadmit JOSIAH GELLER, DILMA Raza [facility] RAD Z12.31 SCREENING FOR MALIGNANT NEOPLASM OF BREAST [id number] 07/03/2017 13:24:00 07/08/2017 00:01:00 DIS Outpatient JAZZ SUAREZ MD [facility] ONC [id number] 02/10/2017 18:08:00 02/10/2017 23:59:59 CLS Outpatient AUGUSTINE DUFFY APRN [facility] LAB HEMATURIA [id number] 12/26/2016 13:46:00 01/23/2017 00:01:00 DIS Outpatient JANE WELLS MD [facility] ONC [id number] 09/26/2016 12:52:00 09/30/2016 12:10:00 DIS Inpatient AARON GELLER, KASHMIR Browning [facility] 4TH F FEMER FX, ARF [id number] 08/02/2016 12:56:00 08/02/2016 23:59:59 CLS Outpatient ANTOINE WILKINS MD [facility] RAD SCREENING [id number] 04/06/2016 10:53:00 07/05/2016 00:01:00 DIS Outpatient JANE WELLS MD [facility] ONC [id number] 01/14/2016 16:04:00 01/14/2016 23:59:59 CLS Outpatient HENRIETTA STACY [facility] RAD R RIB PAIN [id number] 10/07/2015 13:47:00 01/05/2016 00:01:00 DIS Outpatient JANE WELLS MD [facility] ONC [id number] 11/02/2015 13:48:00 11/02/2015 23:59:59 CLS Outpatient AUGUSTINE DUFFY APRN [facility] RAD COUGH,ASPIRATION [id number] 08/13/2015 11:15:00 08/13/2015 23:59:59 CLS Outpatient ANTOINE WILKINS MD [facility] HH ANEMIA, FX FEMUR, TKR [id number] 08/06/2015 22:09:00 08/10/2015 13:50:00 DIS Inpatient KASHMIR WALKER MD [facility] 4TH LEFT DISTAL FEMUR FX, DIZZINESS [id number] 04/08/2015 12:52:00 07/07/2015 00:01:00 DIS Outpatient JANE WELLS MD [facility] ONC [id number] 06/24/2015 11:34:00 06/24/2015 23:59:59 CLS Outpatient HENRIETTA STACY [facility] RAD SCREENING,LOW BACK PAIN [id number] 02/18/2015 09:59:00 02/18/2015 23:59:59 CLS Outpatient MORALES RAY MD [facility] RAD HEMATURIA [id number] 11/19/2014 13:20:00 11/19/2014 23:59:59 CLS Outpatient JANE WELLS MD [facility] ONC [id number] 08/30/2014 14:11:00 08/30/2014 23:59:59 CLS Outpatient ANTOINE WILKINS MD [facility] CVS UTI FOLLOW UP [id number] 08/21/2014 10:10:00 08/25/2014 12:05:00 DIS Inpatient KASHMIR WALKER MD [facility] SURGICAL OSTEOARTHRITIS; PAINFUL HARDWARE [id number] 08/11/2014 11:45:00 08/11/2014 23:59:59 CLS Outpatient KASHMIR WALKER MD [facility] PREOP OSTEOARTHRITIS; PAINFUL HARDWARE [id number] 06/04/2014 10:32:00 06/04/2014 23:59:59 CLS Outpatient JANE WELLS MD [facility] ONC [id number] 03/21/2014 10:54:00 03/21/2014 23:59:59 CLS Outpatient KASHMIR WALKER MD [facility] CARD SCREENING [id number] 03/20/2014 09:42:00 03/20/2014 23:59:59 CLS Outpatient HENRIETTA STACY [facility] RAD SCREENING [id number] 12/04/2013 09:52:00 02/04/2014 00:01:00 DIS Outpatient JANE WELLS MD [facility] ONC [id number] 01/17/2014 22:10:00 01/17/2014 23:59:59 CLS Outpatient ANTOINE WILKINS MD [facility] CVS R/O UTI, C/O STOMACH PAIN [id number] 08/01/2013 12:36:00 10/09/2013 00:01:00 DIS Outpatient JANE WELLS MD [facility] ONC [id number] 07/10/2013 15:29:00 07/10/2013 23:59:59 CLS Outpatient [id number] 06/12/2013 14:35:00 06/12/2013 23:59:59 CLS Outpatient [id number] 05/22/2013 14:56:00 05/22/2013 23:59:59 CLS Outpatient [id number] 05/21/2013 23:16:00 05/21/2013 23:59:59 CLS Outpatient [id number] 05/02/2013 01:10:00 05/07/2013 13:30:00 DIS Inpatient ANTOINE WILKINS MD [facility] SURGICAL L TIBIA FRACTURE, UTI, DEHYDRATION [id number] 04/25/2013 14:28:00 04/25/2013 22:00:00 DIS Outpatient ANTOINE WILKINS MD [facility] SDC HYPOTENSION [id number] 03/15/2013 13:26:00 03/15/2013 23:59:59 CLS Outpatient ANTOINE WILKINS MD [facility] RAD SCREENING [id number] 03/01/2013 17:34:00 03/04/2013 14:40:00 DIS Inpatient ANTOINE WILKINS MD [facility] 4TH N/V,VOLUME DEPLETION [id number] 06/24/2015 11:31:00 Document Registration [id number] 06/24/2015 11:31:00 Document Registration [id number] 06/24/2015 11:31:00 Document Registration [id number] 06/24/2015 11:31:00 Document Registration [id number] 12/08/2014 08:36:00 Document Registration [id number] 12/02/2014 14:58:00 Document Registration [id number] 10/30/2012 10:33:00 Document Registration [id number] 10/18/2012 10:39:00 Document Registration [id number] 10/16/2012 09:55:00 Document Registration [id number] 10/16/2012 09:41:00 Document Registration [id number] 03/29/2012 09:57:00 Document Registration [id number] 01/14/2012 20:57:00 Document Registration [id number] 01/09/2012 08:32:00 Document Registration [id number] 10/28/2011 10:48:00 Document Registration [id number] 12/09/2010 15:29:00 Document Registration [id number] 11/04/2010 10:34:00 Document Registration [id number] 08/23/2017 23:35:27 08/23/2017 23:59:59 [facility] Antoine Thakur [id number] 06/24/2015 11:36:17 ACT Document Registration
== END 2018-01-17 22:07 | disposition home or self-care (01) ==
LOC: EDUNIT# 17:40 → ER 17:42
DX: N39.0 Urinary tract infection, site not specified (principal); R29.6 Repeated falls; R40.2142 Coma scale, eyes open, spontaneous, at arrival to emergency department; R40.2252 Coma scale, best verbal response, oriented, at arrival to emergency department; R40.2362 Coma scale, best motor response, obeys commands, at arrival to emergency department; F41.9 Anxiety disorder, unspecified; F32.9 Major depressive disorder, single episode, unspecified; G47.9 Sleep disorder, unspecified; J43.9 Emphysema, unspecified; I10 Essential (primary) hypertension; Z87.440 Personal history of urinary (tract) infections; Z87.81 Personal history of (healed) traumatic fracture; Z80.0 Family history of malignant neoplasm of digestive organs; Z88.8 Allergy status to other drugs, medicaments and biological substances; Z88.6 Allergy status to analgesic agent; Z88.5 Allergy status to narcotic agent
CPT/HCPCS: 36415; 70450; 73562; 80053; 81000; 85025; 87077; 87088; 87186

== ENCOUNTER → 2018-02-12 | Outpatient (CLI) | payer MEDICARE, OTHER ==
[~2018-02-12] VITALS: Ht 152.4 cm; Wt 58.1 kg
[~2018-02-12] MED LIST changes: +CATHETER FLUSH 10 ML SYR IV PRN; +REGADENOSON 0.4 MG/5 ML SYR (LEXISCAN) IV ONE; +SULF1TAB35 PO
[2018-02-12 09:48] VITALS: BP 150/76
[2018-02-12 09:49] VITALS: BP 122/66
[2018-02-12 09:51] VITALS: BP 137/62
--- NOTE | 2018-02-12 22:36 | STRESS TEST ---
DATE OF SERVICE: 02/12/2018 LEXISCAN MYOVIEW STRESS TEST REPORT REFERRING PHYSICIAN: Titi Kelly MD. Baseline heart rate is 67. Baseline blood pressure 169/69. Baseline EKG is sinus rhythm with no ischemic changes. In summary, the patient was injected with 10.48 mCi of technetium-99 Myoview and the resting images were obtained. Then, the patient received 0.4 mg of Lexiscan followed by 29.0 mCi of technetium-99 Myoview. Throughout the test, there were no EKG changes. The resting and stress images were reviewed and compared in the short axis, horizontal long axis, and vertical long axis views. Review of the images showed increased intestinal uptake affecting the quality of the images no significant ischemia was noted. SSS is 5, SDS 5, TID value 0.89. On the gated images, the left ventricle appeared to be in normal size with normal contractility. Calculated ejection fraction 82%. CONCLUSION: 1. The patient tolerated Lexiscan well. 2. Increased intestinal uptake affecting the quality of the images with no significant ischemia or infarction was noted. 3. Normal left ventricular size with normal contractility. Calculated ejection fraction 82%. Job ID: [id number] DocumentID: [id number] Dictated Date: 02/12/2018 16:45:25 County Adviser Date: 02/12/2018 22:35:00 Dictated By: KARAN VIVEROS MD
== END ==
LOC: CARD 07:18
PROVIDERS: ATTEND Internal Medicine Cardiovascular Disease
DX: J44.9 Chronic obstructive pulmonary disease, unspecified (principal); F32.9 Major depressive disorder, single episode, unspecified; I10 Essential (primary) hypertension; E66.9 Obesity, unspecified; D69.6 Thrombocytopenia, unspecified; R00.1 Bradycardia, unspecified
CPT/HCPCS: 78452; 93017; 93225; 93226

== ENCOUNTER → 2018-02-26 | Outpatient (CLI) | payer MEDICARE, OTHER ==
[~2018-02-26] MED LIST changes: -CATHETER FLUSH 10 ML SYR IV PRN; -REGADENOSON 0.4 MG/5 ML SYR (LEXISCAN) IV ONE
== END ==
LOC: CARD 11:20
PROVIDERS: ATTEND Internal Medicine Cardiovascular Disease
DX: R00.1 Bradycardia, unspecified (principal); I10 Essential (primary) hypertension; I07.1 Rheumatic tricuspid insufficiency; J44.9 Chronic obstructive pulmonary disease, unspecified; F32.9 Major depressive disorder, single episode, unspecified; D69.6 Thrombocytopenia, unspecified; E66.9 Obesity, unspecified
CPT/HCPCS: 93306

== ENCOUNTER 2018-03-02 15:26 | Observation (INO) | payer MEDICARE, OTHER ==
[~2018-03-02] VITALS: Ht 152.4 cm; Wt 58.1 kg
[2018-03-02 16:12] LABS: BILIRUBIN,URINE NEGATIVE (NEGATIVE); CLARITY,URINE CLEAR; COLOR,URINE YELLOW; GLUCOSE, URINE (UA) NEGATIVE (NEGATIVE); KETONES,URINE NEGATIVE (NEGATIVE); LEUKOCYTE ESTERASE ,URINE 1+ (NEGATIVE); NITRITE,URINE NEGATIVE (NEGATIVE); PH,URINE 7 (5-9); PROTEIN,URINE NEGATIVE (NEGATIVE); UROBILINOGEN,URINE 1 MG/DL (NORMAL)
[2018-03-02 16:26] LABS: BASOPHILS % (AUTO) 0 % (0-10); EOSINOPHILS # (AUTO) 0.2 10^3/uL (0.0-0.3); EOSINOPHILS % (AUTO) 3 % (0-10); HEMATOCRIT 35 % (35-52); LYMPHOCYTES # (AUTO) 1.3 X 10^3 (1.0-4.0); LYMPHOCYTES % (AUTO) 22 % (12-44); MEAN CORPUSCULAR HEMOGLOBIN 31 PG (25-34); MEAN CORPUSCULAR HGB CONC 32 G/DL (32-36); MEAN CORPUSCULAR VOLUME 98 FL (80-99); MEAN PLATELET VOLUME 12.7 FL (7.4-10.4); MONOCYTES # (AUTO) 0.6 X 10^3 (0.0-1.0); MONOCYTES % (AUTO) 10 % (0-12); NEUTROPHILS # (AUTO) 3.8 X 10^3 (1.8-7.8); NEUTROPHILS % (AUTO) 65 % (42-75); PLATELET COUNT 76 10^3/uL (130-400); RED BLOOD COUNT 3.58 10^6/uL (4.35-5.85); WHITE BLOOD COUNT 5.8 10^3/uL (4.3-11.0)
[2018-03-02 16:39] LABS: BACTERIA,URINE FEW /HPF
[2018-03-02 16:47] LABS: ALBUMIN 3.2 GM/DL (3.2-4.5); BILIRUBIN,TOTAL 0.3 MG/DL (0.1-1.0); CALCIUM 9.5 MG/DL (8.5-10.1); CREATININE SERUM 1.68 MG/DL (0.60-1.30); POTASSIUM 4.7 MMOL/L (3.6-5.0); TOTAL PROTEIN 5.9 GM/DL (6.4-8.2)
--- NOTE | 2018-03-02 17:12 | ED General ---
General Chief Complaint: General Problems/Pain Stated Complaint: FALL/WEAKNESS Nursing Triage Note: PT ARRIVED PER EMS, PT CO OF INCREASE IN FALLS, AND WEAKNESS. PT WAS STARTED ON ANITBIOIC ON 02/27/18 BACTRIM DS FOR UTI Nursing Sepsis Screen: No Definite Risk Source of Information: Patient, Family Exam Limitations: No Limitations History of Present Illness Date Seen by Provider: March 02, 2018 Time Seen by Provider: 17:07 Initial Comments The patient is an 82-year-old white female with a history of frequent urinary tract infections she was admitted here in January for the same. She was seen earlier this week by Dr. Rahman and thought to have a urinary tract infection. She therefore was placed on Bactrim. Her family noted this morning that her balance was poor speech was somewhat slurred and she was generally off her game. Timing/Duration: 12 Hours Severity: Mild, Moderate Associated Systoms: Weakness Allergies and Home Medications Allergies Coded Allergies: adhesive tape (Verified Allergy, Mild, RASH, 09/26/16) aspirin (Verified Allergy, Unknown, 09/26/16) meperidine (Verified Allergy, Unknown, 09/26/16) nitrofurantoin (Verified Allergy, Unknown, 09/26/16) Uncoded Allergies: SURGICAL TAPE (Allergy, Unknown, 05/14/07) Home Medications Alprazolam 0.5 Mg Tablet, 0.5 MG PO TID Prescribed by: ANTOINE WILKINS on 09/30/16 0953 Calcium Carbonate/Vitamin D2 1 Each Tablet, 1 TAB PO BID, (Reported) Cetirizine Hcl 10 Mg Capsule, 10 MG PO HS, (Reported) Cholecalciferol (Vitamin D3) 1,000 Unit Capsule, 3,000 UNIT PO DAILY, (Reported) Diclofenac Sodium 100 Gm Gel..gram., TP DAILY PRN PRN for PAIN, (Reported) Escitalopram Oxalate 20 Mg Tablet, 20 MG PO DAILY, (Reported) Esomeprazole Magnesium 20 Mg Capsule.dr, 20 MG PO DAILY, (Reported) Famotidine 20 Mg Tablet, 20 MG PO BID PRN for HEARTBURN, (Reported) Ferrous Sulfate 325 Mg Tablet, 325 MG PO DAILY, (Reported) Fesoterodine Fumarate 8 Mg Tab.er.24h, 8 MG PO DAILY, (Reported) Hydrocodone Bit/Acetaminophen 1 Each Tablet, 1 EA PO Q4H PRN for MODERATE PAIN Prescribed by: ANTOINE WILKINS on 09/30/16 0953 Loteprednol Etabonate 5 Gm Drops.gel, 1 DROP OD DAILY, (Reported) Mag Hydrox/Al Hydrox/Simeth 360 Ml Oral.susp, 30 ML PO Q4H PRN for HEARTBURN, ( Reported) Melatonin 3 Mg Tablet, 9 MG PO HS PRN for SLEEP, (Reported) Metoclopramide HCl 5 Mg Tablet, 2.5 MG PO BID, (Reported) TAKES 1/2 (5MG) TABLET Montelukast Sodium 10 Mg Tablet, 10 MG PO DAILY, (Reported) Naproxen Sodium 550 Mg Tablet, 550 MG PO DAILY PRN for PAIN, (Reported) Polyethylene Glycol 119 Gm Btl, 17 GM PO DAILY PRN for CONSTIPATION, (Reported) Potassium Chloride 10 Meq Tablet.er, 10 MEQ PO BID, (Reported) Senna 1 Tab Tablet, 1 TAB PO Q12H PRN for CONSTIPATION, (Reported) Sodium Chloride 126 Ml Mist, 2 SPRAY NS BID PRN for CONGESTION, (Reported) Sulfamethoxazole/Trimethoprim 1 Each Tablet, 1 EACH PO BID Prescribed by: SOFIA GIPSON on 01/17/182157 Whey Protein Isolate 1 Each Powd.pack, 2 PKT PO TID WITH MEALS, (Reported) Patient Home Medication List Home Medication List Reviewed: Yes Review of Systems Constitutional: see HPI, other (slurred speech and gait disturbance) EENTM: no symptoms reported Respiratory: no symptoms reported Cardiovascular: no symptoms reported Gastrointestinal: no symptoms reported Genitourinary: other (on treatment for UTI) Musculoskeletal: muscle weakness Skin: no symptoms reported Psychiatric/Neurological: Weakness, Other (forgetfulness) Hematologic/Lymphatic: No Symptoms Reported Immunological/Allergic: no symptoms reported Past Adxtskt-Ydthxl-Svmcai Hx Patient Social History Alcohol Use: Denies Use Recreational Drug Use: No Smoking Status: Never a Smoker Recent Foreign Travel: No Contact w/Someone Who Travel: No Recent Infectious Disease Expo: No Recent Hopitalizations: No Physical Abuse: No Sexual Abuse: No Immunizations Up To Date Tetanus Booster (TDap): Less than 5yrs Date of Pneumonia Vaccine: Sep 26, 2012 Date of Influenza Vaccine: Jul 09, 2016 Seasonal Allergies Seasonal Allergies: No Past Medical History Surgeries: Yes (HIATAL HERNIA SX, COLON MASS REMOVED) Abdominal, Joint Replacement, Orthopedic Respiratory: Yes COPD, Emphysema Cardiac: Yes (USED TO TAKE B/P MED PRIOR TO 130 POUND WT LOSS) Hypertension Neurological: No 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 Disorders: No UTI-Chronic Gastrointestinal: Yes (COLON RESECTION) Gastroesophageal Reflux, Hiatal Hernia Musculoskeletal: Yes (BILATERAL KNEES AND R HIP REPLACED) Osteoporosis, Arthritis, Fractures Endocrine: No Glaucoma Hearing Impairment: Hard of Hearing Cancer: No Psychosocial: Yes Sleep Difficulties, Anxiety, Depression Nursing Suicide Risk Score: 0 Integumentary: No Blood Disorders: No Adverse Reaction/Blood Tranf: No Family Medical History Alcoholism 19 FATHER Cardiovascular disease 19 MOTHER Colon cancer 19 MOTHER Diabetes mellitus 19 MOTHER Neoplasm 19 MOTHER (colon ca w/ mets to liver ) Respiratory disorder 19 FATHER No Family History of: AIDS Abdominal aortic aneurysm Arthritis Asthma Dementia Drug abuse Hypertension Kidney disease Myocardial infarction Psychosocial problem Seizure disorder Severe allergy Thyroid disease Tuberculosis Cancer, Diabetes Physical Exam Vital Signs Vital Signs - First Documented 03/02/18 15:30 Temp 97.6 Pulse 68 Resp 18 B/P (MAP) 121/72 (88) Pulse Ox 94 O2 Delivery Nasal Cannula O2 Flow Rate 2.00 Capillary Refill : Less Than 3 Seconds General Appearance: Mild Distress Eyes: Bilateral Eye Normal Inspection HEENT: Normal ENT Inspection Neck: Full Range of Motion, Normal Inspection, Non Tender, Supple, Carotid Bruit Respiratory: Chest Non Tender, Lungs Clear, Normal Breath Sounds, No Accessory Muscle Use, No Respiratory Distress Cardiovascular: Regular Rate, Rhythm, No Edema, No Gallop, No JVD, No Murmur, Normal Peripheral Pulses Gastrointestinal: Normal Bowel Sounds, Non Tender Extremity: Normal Capillary Refill, Normal Inspection, No Pedal Edema Neurologic/Psychiatric: Alert, No Motor/Sensory Deficits, Normal Mood/Affect, plate filler II-XII Norm as Tested Skin: Normal Color, Warm/Dry Lymphatic: No Adenopathy Progress/Results/Core Measures Suspected Sepsis Recent Fever Within 48 Hours: No Infection Criteria Present: None New/Unexplained Altered Menta: No Sepsis Screen: No Definite Risk SIRS Temperature:97.6 Pulse: 68 Respiratory Rate: 18 Laboratory Tests 03/02/18 16:18: White Blood Count 5.8 Blood Pressure 121 /72 Mean: 88 Laboratory Tests 03/02/18 16:18: Creatinine 1.68H, Platelet Count 76L, Total Bilirubin 0.3 Results/Orders Lab Results Laboratory Tests Test 03/02/18 16:06 03/02/18 16:18 Range/Units Urine Color YELLOW Urine Clarity CLEAR Urine pH 7 5-9 Urine Specific [place] 1.010 L 1.016-1.022 Urine Protein NEGATIVE NEGATIVE Urine Glucose (UA) NEGATIVE NEGATIVE Urine Ketones NEGATIVE NEGATIVE Urine Nitrite NEGATIVE NEGATIVE Urine Bilirubin NEGATIVE NEGATIVE Urine Urobilinogen 1 NORMAL MG/DL Urine Leukocyte Esterase 1+ H NEGATIVE Urine RBC (Auto) 2+ H NEGATIVE Urine RBC 10-25 H /HPF Urine WBC 2-5 /HPF Urine Squamous Epithelial Cells 5-10 /HPF Urine Crystals NONE /LPF Urine Bacteria FEW H /HPF Urine Casts NONE /LPF Urine Mucus NEGATIVE /LPF Urine Culture Indicated NO White Blood Count 5.8 4.3-11.0 10^3/uL Red Blood Count 3.58 L 4.35-5.85 10^6/uL Hemoglobin 11.0 L 11.5-16.0 G/DL Hematocrit 35 35-52 % Mean Corpuscular Volume 98 80-99 FL Mean Corpuscular Hemoglobin 31 25-34 PG Mean Corpuscular Hemoglobin Concent 32 32-36 G/DL Red Cell Distribution Width 14.0 10.0-14.5 % Platelet Count 76 L 130-400 10^3/uL Mean Platelet Volume 12.7 H 7.4-10.4 FL Neutrophils (%) (Auto) 65 42-75 % Lymphocytes (%) (Auto) 22 12-44 % Monocytes (%) (Auto) 10 0-12 % Eosinophils (%) (Auto) 3 0-10 % Basophils (%) (Auto) 0 0-10 % Neutrophils # (Auto) 3.8 1.8-7.8 X 10^3 Lymphocytes # (Auto) 1.3 1.0-4.0 X 10^3 Monocytes # (Auto) 0.6 0.0-1.0 X 10^3 Eosinophils # (Auto) 0.2 0.0-0.3 10^3/uL Basophils # (Auto) 0.0 0.0-0.1 10^3/uL Sodium Level 139 135-145 MMOL/L Potassium Level 4.7 3.6-5.0 MMOL/L Chloride Level 100 98-107 MMOL/L Carbon Dioxide Level 32 21-32 MMOL/L Anion Gap 7 5-14 MMOL/L Blood Urea Nitrogen 19 H 7-18 MG/DL Creatinine 1.68 H 0.60-1.30 MG/DL Estimat Glomerular Filtration Rate 29 BUN/Creatinine Ratio 11 Glucose Level 96 70-105 MG/DL Calcium Level 9.5 8.5-10.1 MG/DL Total Bilirubin 0.3 0.1-1.0 MG/DL Aspartate Amino Transf (AST/SGOT) 23 5-34 U/L Alanine Aminotransferase (ALT/SGPT) 13 0-55 U/L Alkaline Phosphatase 67 40-136 U/L Total Protein 5.9 L 6.4-8.2 GM/DL Albumin 3.2 3.2-4.5 GM/DL My Orders Orders - MAURICIO GUSMAN MD Cbc With Automated Diff (03/02/18 16:01) Comprehensive Metabolic Panel (03/02/18 16:01) Ua Culture If Indicated (03/02/18 16:01) Ct Head Wo-R/O Stroke (03/02/18 17:13) Vital Signs/I&O 03/02/18 15:30 Temp 97.6 Pulse 68 Resp 18 B/P (MAP) 121/72 (88) Pulse Ox 94 O2 Delivery Nasal Cannula O2 Flow Rate 2.00 Capillary Refill : Less Than 3 Seconds Blood Pressure Mean: 88 Departure Communication (Admissions) The CT scan was negative for intracranial pathology. The patient will be admitted overnight for observation. Impression Primary Impression: weakness and confusion. Additional Impression: urinary tract infection Disposition: ADMITTED INPATIENT Condition: Stable/Unchanged Admissions Decision to Admit Reason: Admit from ER (General) Decision to Admit/Date: March 02, 2018 Time/Decision to Admit Time: 18:02 Departure-Patient Inst. Decision time for Depature: 18:02 Referrals: DILMA RAHMAN MD (PCP/Family) Primary Care Physician MAURICIO GUSMAN MD March 02, 2018 17:12
--- NOTE | 2018-03-02 17:48 | Diagnostic Imaging Report ---
INDICATION: Multiple falls. Hit posterior side of the head. FINDINGS: The ventricles are normal in size, shape, and position. There are age-related senescent changes present. There is no acute parenchymal hemorrhage, edema, or mass. There is no extra-axial mass or hemorrhage. IMPRESSION: No acute abnormality is seen with no significant change from 01/17/2018. Dictated by: Dictated on workstation # [id number]
[2018-03-02] MEDS ORDERED: cefTRIAXone INJECTION 1,000 MG in NS (IVPB) 50 ML IV ONE (18:30)
[2018-03-02] MEDS ORDERED: NS IV 1000 ML 1,000 ML ONE (19:36)
[2018-03-02 19:43] VITALS: BP 127/77
[2018-03-02] MEDS: NS IV 1000 ML 1,000 ML IV SCH (19:55)
[2018-03-02] MEDS ORDERED: CATHETER FLUSH 10 ML SYR IV PRN (20:00)
[2018-03-03 00:50] VITALS: BP 102/63
[2018-03-03 04:25] VITALS: BP 113/55
[2018-03-03 06:43] LABS: BASOPHILS % (AUTO) 0 % (0-10); EOSINOPHILS # (AUTO) 0.1 10^3/uL (0.0-0.3); EOSINOPHILS % (AUTO) 3 % (0-10); HEMATOCRIT 33 % (35-52); HEMOGLOBIN 10.3 G/DL (11.5-16.0); LYMPHOCYTES # (AUTO) 1.2 X 10^3 (1.0-4.0); LYMPHOCYTES % (AUTO) 23 % (12-44); MEAN CORPUSCULAR HEMOGLOBIN 30 PG (25-34); MEAN CORPUSCULAR HGB CONC 31 G/DL (32-36); MEAN CORPUSCULAR VOLUME 98 FL (80-99); MEAN PLATELET VOLUME 12.2 FL (7.4-10.4); MONOCYTES # (AUTO) 0.5 X 10^3 (0.0-1.0); MONOCYTES % (AUTO) 9 % (0-12); NEUTROPHILS # (AUTO) 3.2 X 10^3 (1.8-7.8); NEUTROPHILS % (AUTO) 65 % (42-75); PLATELET COUNT 65 10^3/uL (130-400); RED BLOOD COUNT 3.38 10^6/uL (4.35-5.85); RED CELL DISTRIBUTION WIDTH 14.2 % (10.0-14.5); WHITE BLOOD COUNT 4.9 10^3/uL (4.3-11.0)
[2018-03-03 07:50] VITALS: BP 109/55
[2018-03-03 11:52] VITALS: BP 131/69
[2018-03-03] MEDS: NS IV 1000 ML 1,000 ML IV SCH (12:03)
--- NOTE | 2018-03-03 12:07 | Short Stay Summary-Hospitalist ---
History of Present Illness HPI/Chief Complaint The patient is an 82-year-old white female who was brought to the emergency room yesterday by her family. She is a patient of Dr. Rahman'josh and he had started her on antibiotics for a UTI earlier in the week. She had taken her Bactrim as scheduled. The daughter stated she thought she was getting better initially but on 03/02 had seemed confused as she had before with urinary tract infections. She also has been receiving home health physical therapy as she has been unsteady on her feet even with a walker. Her workup in the emergency room suggested that although our community experience is that Bactrim is not particularly useful in the elderly with frequent Escherichia coli infections, she had cleared her urine of wbc's. a CT scan was performed of the head looking for possible acute injury/stroke. This was negative. She was kept overnight for observation. This morning she seems to be perfectly bright and remembers me by name from yesterday. Source: patient, family Exam Limitations: no limitations Date Seen 03/03/18 Time Seen by Provider: 12:00 Attending Physician Hussein Boles MD PCP Titi Rahman MD Referring Physician Date of Admission March 02, 2018 at 19:08 Home Medications & Allergies Home Medications Reviewed patient Home Medication Reconciliation performed by pharmacy medication reconciliations health care technician and/or nursing. Patients Allergies have been reviewed. Allergies Allergies Coded Allergies adhesive tape (Verified Allergy, Mild, RASH, 09/26/16) aspirin (Verified Allergy, Unknown, 09/26/16) meperidine (Verified Allergy, Unknown, 09/26/16) nitrofurantoin (Verified Allergy, Unknown, 09/26/16) Uncoded Allergies SURGICAL TAPE ( Allergy, Unknown, 05/14/07) Past Hykzwwg-Zrnfim-Tohyvg Hx Past Med/Social Hx: Reviewed Nursing Past Med/Soc Hx Patient Social History Alcohol Use: Denies Use Recreational Drug Use: No Smoking Status: Never a Smoker Physical Abuse Screen: No Sexual Abuse: No Recent Foreign Travel: No Contact w/other who traveled: No Recent Hopitalizations: No Recent Infectious Disease Expo: No Immunizations Up To Date Date of Pneumonia Vaccine: Sep 26, 2012 Date of Influenza Vaccine: Jul 09, 2016 Seasonal Allergies Seasonal Allergies: No Past Medical History Surgeries: Abdominal, Joint Replacement, Orthopedic Cardiac: Hypertension 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: No Genitourinary: UTI-Chronic Gastrointestinal: Gastroesophageal Reflux, Hiatal Hernia Musculoskeletal: Osteoporosis, Arthritis, Fractures HEENT: Glaucoma Hearing Impairment: Hard of Hearing Psychosocial: Sleep Difficulties, Anxiety, Depression History of Blood Disorders: No Adverse Reaction to Blood Felipe: No Family History Alcoholism 19 FATHER Cardiovascular disease 19 MOTHER Colon cancer 19 MOTHER Diabetes mellitus 19 MOTHER Neoplasm 19 MOTHER (colon ca w/ mets to liver ) Respiratory disorder 19 FATHER No Family History of: AIDS Abdominal aortic aneurysm Arthritis Asthma Dementia Drug abuse Hypertension Kidney disease Myocardial infarction Psychosocial problem Seizure disorder Severe allergy Thyroid disease Tuberculosis Cancer, Diabetes Review of Systems Constitutional: see HPI EENTM: hearing loss Respiratory: no symptoms reported Cardiovascular: no symptoms reported Gastrointestinal: no symptoms reported Genitourinary: see HPI Musculoskeletal: joint pain, muscle weakness Skin: no symptoms reported Physical Exam Physical Exam Vital Signs Vital Signs - First Documented 03/02/18 15:30 Temp 97.6 Pulse 68 Resp 18 B/P (MAP) 121/72 (88) Pulse Ox 94 O2 Delivery Nasal Cannula O2 Flow Rate 2.00 Capillary Refill : Less Than 3 Seconds General Appearance: No Apparent Distress, WD/WN Eyes: Bilateral Eye Normal Inspection HEENT: Normal ENT Inspection Neck: Normal Inspection Respiratory: Chest Non Tender, Lungs Clear, Normal Breath Sounds, No Accessory Muscle Use, No Respiratory Distress Cardiovascular: Regular Rate, Rhythm, No Edema, No Gallop, No JVD, No Murmur Gastrointestinal: Normal Bowel Sounds, No Organomegaly, No Pulsatile Mass, Non Tender, Soft Extremity: Normal Capillary Refill, Normal Inspection, Normal Range of Motion, Non Tender, No Calf Tenderness, No Pedal Edema Neurologic/Psychiatric: Alert, Oriented x3, No Motor/Sensory Deficits, Normal Mood/Affect Skin: Normal Color, Warm/Dry Lymphatic: No Adenopathy Results Results/Procedures Labs Laboratory Tests 03/02/18 16:18 03/03/18 06:31 Patient resulted labs reviewed. Short Stay Diagnosis Discharge Diagnosis-Short Stay Admission Diagnosis 1.urinary tract infection. 2.confusion. 3.general disability. Final Discharge Diagnosis 1.urinary tract infection. 2.confusion, apparently cleared Conclusion Plan Discharge sequence for medications and activities Clinical Quality Measures DVT/VTE Risk/Contraindication: Risk Factor Score Per Nursin RFS Level Per Nursing on Admit: 3=High Copy Copies To 1: TITI RAHMAN MD, RODNEY K MD March 03, 2018 12:07
--- NOTE | 2018-03-03 12:16 | Discharge Instructions ---
Discharge Instructions Patient Instructions Patient Instructions: Medications as listed on the discharge sequence. Complete your course of Bactrim. Take at least 1 quart of liquids daily by mouth Continue to use your walker See Dr. Kelly sometime next week MAURICIO GUSMAN MD March 03, 2018 12:16
== END 2018-03-03 12:14 | disposition home or self-care (01) ==
LOC: EDUNIT# 15:26 → ER 15:27 → 4TH 19:08 → UNDOADMOB 19:08 → 4TH 19:36 → UNDODISOB 03-03 13:25
PROVIDERS: ADMIT Internal Medicine; ATTEND Internal Medicine
DX: N39.0 Urinary tract infection, site not specified (principal); R41.0 Disorientation, unspecified; K21.9 Gastro-esophageal reflux disease without esophagitis; K44.9 Diaphragmatic hernia without obstruction or gangrene; M81.0 Age-related osteoporosis without current pathological fracture; H40.9 Unspecified glaucoma; F41.9 Anxiety disorder, unspecified; F32.9 Major depressive disorder, single episode, unspecified; I10 Essential (primary) hypertension; Z96.653 Presence of artificial knee joint, bilateral; Z96.641 Presence of right artificial hip joint
CPT/HCPCS: 36415; 70450; 80053; 81000; 85025; 96365; G0378

== ENCOUNTER 2018-05-01 11:00 | Outpatient (CLI) | payer MEDICARE, OTHER ==
[~2018-05-01] VITALS: Ht 152.4 cm; Wt 54.4 kg
[2018-05-01] MEDS ORDERED: CALC1TAB94 PO (15:04)
[2018-05-01] MEDS ORDERED: FLUO20CA25 PO (15:04)
[2018-05-01] MEDS ORDERED: MORP-34 PO (15:04)
[2018-05-01] MEDS ORDERED: GABA-486 PO (15:04)
== END 2018-05-01 15:10 | disposition home or self-care (01) ==
LOC: PREOP 11:00
PROVIDERS: ATTEND Surgery
DX: Z01.818 Encounter for other preprocedural examination (principal)

== ENCOUNTER 2018-05-07 08:43 | Inpatient (IN) | payer MEDICARE, OTHER ==
[~2018-05-07] VITALS: Ht 152.4 cm; Wt 52.2 kg
[~2018-05-07 08:43] MED LIST changes: +CALC1TAB94 PO; +FLUO20CA25 PO; +GABA-486 PO
[2018-05-07 09:13] LABS: BASOPHILS % (AUTO) 0 % (0-10); EOSINOPHILS % (AUTO) 0 % (0-10); HEMATOCRIT 51 % (35-52); HEMOGLOBIN 15.1 G/DL (11.5-16.0); LYMPHOCYTES % (AUTO) 9 % (12-44); MEAN CORPUSCULAR HEMOGLOBIN 30 PG (25-34); MEAN CORPUSCULAR HGB CONC 30 G/DL (32-36); MEAN CORPUSCULAR VOLUME 100 FL (80-99); MEAN PLATELET VOLUME 11.7 FL (7.4-10.4); MONOCYTES # (AUTO) 0.6 X 10^3 (0.0-1.0); MONOCYTES % (AUTO) 6 % (0-12); NEUTROPHILS # (AUTO) 8.9 X 10^3 (1.8-7.8); NEUTROPHILS % (AUTO) 85 % (42-75); PLATELET COUNT 149 10^3/uL (130-400); RED BLOOD COUNT 5.05 10^6/uL (4.35-5.85); WHITE BLOOD COUNT 10.5 10^3/uL (4.3-11.0)
[2018-05-07 09:30] LABS: ALANINE AMINOTRANSFERASE 13 U/L (0-55); ALKALINE PHOSPHATASE 123 U/L (40-136); BILIRUBIN,TOTAL 0.6 MG/DL (0.1-1.0); BUN/CREATININE RATIO 12; CALCIUM 11.7 MG/DL (8.5-10.1); CARBON DIOXIDE 38 MMOL/L (21-32); CHLORIDE 103 MMOL/L (98-107); CREATININE SERUM 2.29 MG/DL (0.60-1.30); GFR ESTIMATED 20; GLUCOSE 214 MG/DL (70-105); TOTAL PROTEIN 7.9 GM/DL (6.4-8.2)
[2018-05-07 09:31] LABS: FIBRIN DEGRADATION PRODUCTS 1.11 UG/ML (0.00-0.49); INR 1.2 (0.8-1.4)
--- NOTE | 2018-05-07 09:32 | Diagnostic Imaging Report ---
INDICATION: Lethargy. TECHNIQUE: Axial imaging through the brain was performed without contrast. COMPARISON: Prior head CT from 03/02/2018. FINDINGS: The ventricular size and sulcal pattern are stable. Moderate periventricular hypodensities are noted, consistent with chronic microvascular ischemia. 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 A small lacunar infarct in the right thalamus is also seen. Basal gangliar calcifications are noted. Pineal calcifications are seen. There does appear to be some hyperdensity in the midline at the level of the posterior falx. This may represent a small amount of acute subdural blood. There is no mass effect or midline shift. No other areas of hemorrhage are detected. The cisterns are patent. The visualized paranasal sinuses are clear. IMPRESSION: 1. Chronic and senescent changes. In addition, there is some thickened hyperdensity in the region of the posterior falx, images 15 and 16. This may represent a small amount of acute subdural blood. A followup PET/CT in 3-4 days may be useful to confirm stability. No other significant abnormality is seen. 2. The results were discussed with Dr. Bui of the Emergency Department prior to this dictation. Dictated by: Dictated on workstation # [id number]
--- NOTE | 2018-05-07 09:34 | Diagnostic Imaging Report ---
INDICATION: Lethargy, weakness, difficulty speaking. TECHNIQUE: Single frontal view of the chest. COMPARISON: 09/13/2017 FINDINGS: Lung volumes are normal. No focal consolidation is seen. There is no pleural effusion or pneumothorax. The cardiac silhouette is normal in size. There is aortic atherosclerosis. Old right-sided rib fractures are noted. There are mild degenerative changes in the spine and shoulders. Old kyphoplasty is noted in the upper lumbar spine. IMPRESSION: No acute pulmonary abnormality seen. Dictated by: Dictated on workstation # [id number]
[2018-05-07] MEDS ORDERED: NS IV 1000 ML 1,000 ML IV ONE (09:41)
[2018-05-07] MEDS ORDERED: POTASSIUM CL 10MEQ/50ML IVPB 50 ML IV ONE (09:45)
[2018-05-07 09:46] LABS: SODIUM 172 MMOL/L (135-145)
--- NOTE | 2018-05-07 10:08 | ED General ---
General Chief Complaint: Neuro-Stroke Like Symptoms Stated Complaint: LETHARGIC Nursing Triage Note: ARRIVED VIA AMBULANCE FROM HOME. PT CLENSED FOR A COLONOSCOPY THIS PAST EVENING BUT FAMILY CALLED EMS DUE TO BEING LETHARGIC. UPON ARRIVAL PT TRIES TO SPEAK BUT IS NOT MAKING SINCE AND IS VERY WEAK. Nursing Sepsis Screen: No Definite Risk Source of Information: Patient, EMS, Family History of Present Illness Date Seen by Provider: May 07, 2018 Time Seen by Provider: 08:44 Initial Comments This 82-year-old woman presents emergency room with complaints of altered mental status. She had been performing a colonoscopy prep due to family history of colon cancer. She was to have the colonoscopy this morning. Family found her to be altered and weak this morning. She was disoriented upon arrival. Stroke activation was paged. Last known well time was last night. Patient is not a thrombolytic candidate as there is not definitive evidence of stroke and she is beyond the therapeutic window for thrombolytics. It is noted the patient takes morphine and Neurontin. Family does not think she has had those medications this morning. Patient did have a large diarrheal bowel movement today. Allergies and Home Medications Allergies Coded Allergies: adhesive tape (Verified Allergy, Mild, RASH, 09/26/16) aspirin (Verified Allergy, Unknown, 09/26/16) meperidine (Verified Allergy, Unknown, 09/26/16) nitrofurantoin (Verified Allergy, Unknown, 09/26/16) Uncoded Allergies: SURGICAL TAPE (Allergy, Unknown, 05/14/07) Home Medications Calcium Carbonate/Vitamin D3 1 Each Tablet, 1 TAB PO BID, (Reported) Cholecalciferol (Vitamin D3) 1,000 Unit Capsule, 3,000 UNIT PO DAILY, (Reported) Diclofenac Sodium 100 Gm Gel..gram., TP BID PRN for JOINT PAIN, (Reported) Famotidine 20 Mg Tablet, 20 MG PO DAILY, (Reported) Ferrous Sulfate 325 Mg Tablet, 325 MG PO DAILY, (Reported) Fesoterodine Fumarate 8 Mg Tab.er.24h, 4 MG PO HS, (Reported) TAKES 1/2 (8MG) TABLET Fluoxetine HCl 20 Mg Capsule, 20 MG PO DAILY, (Reported) Gabapentin 100 Mg Capsule, 100 MG PO HS, (Reported) Hydrocortisone 28.35 Gm Cream.appl, TOP QID PRN for HEMORRHOIDS, (Reported) Loteprednol Etabonate 5 Gm Drops.gel, 1 DROP OD DAILY, (Reported) Mag Hydrox/Al Hydrox/Simeth 30 Ml Oral.susp, 30 ML PO QID PRN for INDIGESTION, ( Reported) Montelukast Sodium 10 Mg Tablet, 10 MG PO DAILY, (Reported) Morphine Sulfate 30 Mg Tablet.er, 30 MG PO BID, (Reported) Naproxen Sodium 220 Mg Tablet, 220-440 MG PO Q8H PRN for PAIN-MILD, (Reported) Ondansetron 8 Mg Tab.rapdis, 8 MG PO Q8H PRN for NAUSEA/VOMITING-1ST LINE, ( Reported) Polyethylene Glycol 3350 17 Gm Powd.pack, 17 GM PO DAILY PRN for CONSTIPATION- 2ND LINE, (Reported) Sodium Chloride 126 Ml Mist, 2 SPRAY NS BID PRN for CONGESTION, (Reported) Patient Home Medication List Home Medication List Reviewed: Yes Review of Systems Constitutional: see HPI EENTM: other (Dry oropharynx) Respiratory: no symptoms reported Cardiovascular: no symptoms reported Gastrointestinal: see HPI Genitourinary: no symptoms reported : No Musculoskeletal: no symptoms reported Skin: no symptoms reported Psychiatric/Neurological: See HPI Hematologic/Lymphatic: No Symptoms Reported Immunological/Allergic: no symptoms reported Past Czxqcog-Fxkhwy-Hxrfkf Hx Patient Social History Recent Foreign Travel: No Contact w/Someone Who Travel: No Recent Infectious Disease Expo: No Recent Hopitalizations: No Immunizations Up To Date Tetanus Booster (TDap): Less than 5yrs Date of Pneumonia Vaccine: Sep 26, 2012 Date of Influenza Vaccine: Jul 09, 2016 Seasonal Allergies Seasonal Allergies: No Past Medical History Surgeries: Yes (HIATAL HERNIA SX, COLON MASS REMOVED) Abdominal, Joint Replacement, Orthopedic Respiratory: Yes (OXYGEN AT HS) COPD, Emphysema Cardiac: No (USED TO TAKE B/P MED PRIOR TO 130 POUND WT LOSS) Hypertension Neurological: No 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 Disorders: No Genitourinary: Yes Renal Failure, UTI-Chronic Gastrointestinal: Yes (COLON RESECTION) Gastroesophageal Reflux, Hiatal Hernia Musculoskeletal: Yes (BILATERAL KNEES AND R HIP REPLACED) Osteoporosis, Arthritis, Fractures Endocrine: No Glaucoma Hearing Impairment: Hard of Hearing Cancer: No Psychosocial: Yes Sleep Difficulties, Anxiety, Depression Integumentary: No Blood Disorders: No Adverse Reaction/Blood Tranf: No Family Medical History Alcoholism 19 FATHER Cardiovascular disease 19 MOTHER Colon cancer 19 MOTHER Diabetes mellitus 19 MOTHER Neoplasm 19 MOTHER (colon ca w/ mets to liver ) Respiratory disorder 19 FATHER No Family History of: AIDS Abdominal aortic aneurysm Arthritis Asthma Dementia Drug abuse Hypertension Kidney disease Myocardial infarction Psychosocial problem Seizure disorder Severe allergy Thyroid disease Tuberculosis Cancer, Diabetes Physical Exam Vital Signs Vital Signs - First Documented 05/07/18 05/07/18 08:43 08:59 Temp 98.0 Pulse 106 Resp 16 B/P (MAP) 105/75 (85) Pulse Ox 97 O2 Delivery Room Air O2 Flow Rate 2.00 Capillary Refill : Less Than 3 Seconds Height, Weight, BMI Height: 5'0.00" Weight: 120lbs. 0.0oz. [id number]; 23.4 BMI Method:Stated General Appearance: No Apparent Distress, WD/WN HEENT: PERRL/EOMI, Other (Absence of teeth. Oropharynx dry) Neck: Normal Inspection Respiratory: Lungs Clear, Normal Breath Sounds, No Accessory Muscle Use, No Respiratory Distress Cardiovascular: No Edema, No Murmur, Tachycardia Gastrointestinal: Normal Bowel Sounds, Non Tender, Soft Extremity: Normal Inspection, No Pedal Edema Neurologic/Psychiatric: Alert, Other (Initially disoriented and not following instructions well. Speech was garbled. This improved with time and she was eventually alert and oriented.) Skin: Normal Color, Warm/Dry Progress/Results/Core Measures Suspected Sepsis Recent Fever Within 48 Hours: No Infection Criteria Present: None New/Unexplained Altered Menta: No Sepsis Screen: No Definite Risk SIRS Temperature:98.0 Pulse: 106 Respiratory Rate: 16 Laboratory Tests 05/07/18 09:05: White Blood Count 10.5 Blood Pressure 105 /75 Mean: 85 Laboratory Tests 05/07/18 09:05: Creatinine 2.29H, INR Comment 1.2, Platelet Count 149, Total Bilirubin 0.6 05/07/18 16:31: Creatinine 2.10H Results/Orders Lab Results Laboratory Tests Test 05/07/18 09:04 05/07/18 09:05 05/07/18 10:18 05/07/18 16:31 Range/Units Glucometer 181 H 70-110 MG/DL White Blood Count 10.5 4.3-11.0 10^3/uL Red Blood Count 5.05 4.35-5.85 10^6/uL Hemoglobin 15.1 11.5-16.0 G/DL Hematocrit 51 35-52 % Mean Corpuscular Volume 100 H 80-99 FL Mean Corpuscular Hemoglobin 30 25-34 PG Mean Corpuscular Hemoglobin Concent 30 L 32-36 G/DL Red Cell Distribution Width 15.0 H 10.0-14.5 % Platelet Count 149 130-400 10^3/uL Mean Platelet Volume 11.7 H 7.4-10.4 FL Neutrophils (%) (Auto) 85 H 42-75 % Lymphocytes (%) (Auto) 9 L 12-44 % Monocytes (%) (Auto) 6 0-12 % Eosinophils (%) (Auto) 0 0-10 % Basophils (%) (Auto) 0 0-10 % Neutrophils # (Auto) 8.9 H 1.8-7.8 X 10^3 Lymphocytes # (Auto) 1.0 1.0-4.0 X 10^3 Monocytes # (Auto) 0.6 0.0-1.0 X 10^3 Eosinophils # (Auto) 0.0 0.0-0.3 10^3/uL Basophils # (Auto) 0.0 0.0-0.1 10^3/uL Prothrombin Time 15.0 H 12.2-14.7 SEC INR Comment 1.2 0.8-1.4 Activated Partial Thromboplast Time 26 24-35 SEC D-Dimer 1.11 H 0.00-0.49 UG/ML Sodium Level 172 *H 170 *H 135-145 MMOL/L Potassium Level 3.0 L 3.2 L 3.6-5.0 MMOL/L Chloride Level 103 112 H 98-107 MMOL/L Carbon Dioxide Level 38 H 38 H 21-32 MMOL/L Anion Gap 30 H 20 H 5-14 MMOL/L Blood Urea Nitrogen 28 H 29 H 7-18 MG/DL Creatinine 2.29 H 2.10 H 0.60-1.30 MG/DL Estimat Glomerular Filtration Rate 20 23 BUN/Creatinine Ratio 12 14 Glucose Level 214 H 133 H 70-105 MG/DL Calcium Level 11.7 H 10.6 H 8.5-10.1 MG/DL Total Bilirubin 0.6 0.1-1.0 MG/DL Aspartate Amino Transf (AST/SGOT) 19 5-34 U/L Alanine Aminotransferase (ALT/SGPT) 13 0-55 U/L Alkaline Phosphatase 123 40-136 U/L Troponin I < 0.30 <0.30 NG/ML Total Protein 7.9 6.4-8.2 GM/DL Albumin 4.0 3.2-4.5 GM/DL Urine Color YELLOW Urine Clarity CLEAR Urine pH 9 5-9 Urine Specific [place] 1.015 L 1.016-1.022 Urine Protein 3+ H NEGATIVE Urine Glucose (UA) NEGATIVE NEGATIVE Urine Ketones NEGATIVE NEGATIVE Urine Nitrite NEGATIVE NEGATIVE Urine Bilirubin NEGATIVE NEGATIVE Urine Urobilinogen NORMAL NORMAL MG/DL Urine Leukocyte Esterase 1+ H NEGATIVE Urine RBC (Auto) 2+ H NEGATIVE Urine RBC 0-2 /HPF Urine WBC NONE /HPF Urine Squamous Epithelial Cells RARE /HPF Urine Crystals NONE /LPF Urine Amorphous Sediment RARE GERMAN PHOSPHATE H /LPF Urine Bacteria TRACE /HPF Urine Casts PRESENT /LPF Urine Hyaline Casts RARE /LPF Urine Mucus NEGATIVE /LPF Urine Culture Indicated NO My Orders Orders - RONAK REYES MD Cbc With Automated Diff (05/07/18 08:54) Protime With Inr (05/07/18 08:54) Partial Thromboplastin Time (05/07/18 08:54) Comprehensive Metabolic Panel (05/07/18 08:54) Fibrin Degradation Products (05/07/18 08:54) Troponin I (05/07/18 08:54) Ua Culture If Indicated (05/07/18 08:54) Chest 1 View, Ap/Pa Only (05/07/18 08:54) Catheter(Urinary) Insert & Ass 03,15 (05/07/18 08:54) Ekg Tracing (05/07/18 08:54) Accucheck Stat ONCE (05/07/18 08:54) Saline Lock/Iv-Start (05/07/18 08:54) Saline Lock/Iv-Start (05/07/18 08:54) Vital Signs Stroke Patient Q15M (05/07/18 08:54) Ct Head Wo-R/O Stroke (05/07/18 08:54) O2 (05/07/18 08:54) Intake & Output 06,14,22 (05/07/18 08:54) Monitor-Rhythm Ecg Trace Only (05/07/18 08:54) Dysphagia Screening Tool (05/07/18 08:54) Lipid Panel (05/08/18 06:00) Ns Iv 1000 Ml (Sodium Chloride 0.9%) (05/07/18 09:41) Potassium Cl 10meq/50ml Ivpb (Kcl 10 Meq (05/07/18 09:45) Medications Given in ED Current Medications Medications Dose Ordered Sig/Missael Route Start Time Stop Time Status Last Admin Dose Admin Potassium Chloride 50 ml @ 50 mls/hr ONCE ONCE IV 05/07/18 09:45 05/07/18 10:44 DC 05/07/18 10:48 50 MLS/HR Sodium Chloride 1,000 ml @ 0 mls/hr Q0M ONCE IV 05/07/18 09:41 05/07/18 09:43 DC 05/07/18 10:48 1,000 MLS/HR Vital Signs/I&O 05/07/18 05/07/18 05/07/18 05/07/18 08:43 08:59 11:19 11:25 Temp 98.0 98.0 Pulse 106 114 94 Resp 16 16 16 B/P (MAP) 105/75 (85) 128/98 128/66 Pulse Ox 97 92 100 O2 Delivery Room Air Nasal Cannula Nasal Cannula O2 Flow Rate 2.00 2.00 05/07/18 05/07/18 05/07/18 05/07/18 11:33 13:00 16:04 17:02 Temp 97.1 98.8 Pulse 94 80 97 Resp 16 16 B/P (MAP) 128/66 (86) 157/81 (106) Pulse Ox 100 97 O2 Delivery Nasal Cannula Nasal Cannula Nasal Cannula O2 Flow Rate 2.00 2.00 2.00 Capillary Refill : Less Than 3 Seconds Blood Pressure Mean: 85 Point of Care Testing Finger Stick Blood Glucose: 189 Progress Note : Time: 10:24 Progress Note Stroke activation was paged. CT of the head was performed promptly. There was some question of findings in the falx that Dr. Mann felt warranted repeat imaging. NIH stroke score was 3, primarily due to patient's inability to understand instructions with exam. Patient was found to have severe electrolyte disturbances with a markedly elevated sodium and a low potassium. She also demonstrated acute on chronic renal failure. Mental status did improve somewhat during the course of her ER stay. After arrival of her daughter, she was alert and oriented to person, age, and month. Case was reviewed with Dr. Boles who agrees with admission. Initial fluid replacement was with normal saline 1 L bolus in the ER as well as 10 mEq of potassium by IV route. After these initial therapies are complete, she will receive another 20 mEq potassium by IV as well as normal saline at 250 mL per hour. I discussed CODE STATUS with the patient's daughter who states she is to be DO NOT RESUSCITATE based on prior discussions with the patient. ECG Initial ECG Impression Date: May 07, 2018 Initial ECG Impression Time: 10:00 Initial ECG Rate: 102 Comment Sinus tachycardia with arrhythmia. No acute ST elevation or depression. Departure Communication (Admissions) Time/Spoke to Admitting Phy: 10:18 Dr. Boles Impression Primary Impression: Dehydration Additional Impressions: Acute on chronic renal failure Qualified Codes: N17.9 - Acute kidney failure, unspecified; N18.9 - Chronic kidney disease, unspecified Hypernatremia Hypokalemia Altered mental status Qualified Codes: R41.82 - Altered mental status, unspecified Abnormal CT scan, head Disposition: ADMITTED INPATIENT Condition: Improved Admissions Decision to Admit Reason: Admit from ER (General) Decision to Admit/Date: May 07, 2018 Time/Decision to Admit Time: 10:00 Departure-Patient Inst. Referrals: DILMA RAHMAN MD (PCP/Family) Primary Care Physician RONAK REYES MD May 07, 2018 10:08
[2018-05-07 10:25] LABS: BILIRUBIN,URINE NEGATIVE (NEGATIVE); CLARITY,URINE CLEAR; COLOR,URINE YELLOW; GLUCOSE, URINE (UA) NEGATIVE (NEGATIVE); KETONES,URINE NEGATIVE (NEGATIVE); LEUKOCYTE ESTERASE ,URINE 1+ (NEGATIVE); NITRITE,URINE NEGATIVE (NEGATIVE); PH,URINE 9 (5-9); PROTEIN,URINE 3+ (NEGATIVE); UROBILINOGEN,URINE NORMAL (NORMAL)
[2018-05-07 10:36] LABS: AMORPHOUS SEDIMENT,UR RARE AMOR PHOSPHATE /LPF; BACTERIA,URINE TRACE /HPF; HYALINE CASTS, URINE RARE /LPF; RBC,URINE 0-2 /HPF; SQUAMOUS EPITHELIAL CELL,UR RARE /HPF
[2018-05-07 11:25] VITALS: BP 128/66
[2018-05-07 11:33] VITALS: BP 128/66
[2018-05-07] MEDS ORDERED: CALC1TAB95 PO (13:23)
[2018-05-07] MEDS ORDERED: NAPR220T66 PO (13:33)
[2018-05-07] MEDS ORDERED: ONDA8TAB13 PO (13:33)
[2018-05-07] MEDS ORDERED: HYDR30CR69 TOP (13:33)
[2018-05-07] MEDS ORDERED: HYDR28.341 TOP (13:36)
[2018-05-07] MEDS ORDERED: POLY17PO6 PO (13:36)
[2018-05-07] MEDS ORDERED: MAG30ORA2 PO (13:36)
[2018-05-07] MEDS: POTASSIUM CL 10 MEQ/50 ML IVPB (PRE-MIX) IV SCH ×2 (14:19→16:00)
[2018-05-07] MEDS: NS IV 1000 ML 1,000 ML IV SCH ×2 (14:20→16:40)
--- NOTE | 2018-05-07 14:28 | Progress Note-Hospitalist ---
Progress Note Progress Notes/Assess & Plan Date Seen 05/07/18 Time Seen by Provider: 14:26 Assessment & Plan The patient is an all but 83-year-old white female who presented to the emergency room this morning with lethargy and confusion. She had been preparing for an outpatient colonoscopy to be done today. Her prep last night caused her to have watery diarrhea through the night. On presentation to the emergency room her sodium was noted to be 172. In addition her creatinine was 2.29. A review of previous kidney function showed a creatinine of 1.11 on . On 01/17 the creatinine was 1.51, on 03/02 1.68, and the aforementioned 2.29 today. Physical exam: She is slender and ill appearing. She does not respond to vocal stimulus. Lungs are clear to auscultation CV is regular. Impression: Severe hyper natremia. Plan: IV fluids and monitoring MAURICIO GUSMAN MD May 07, 2018 14:28
[2018-05-07 16:04] VITALS: BP 157/81
[2018-05-07] MEDS: ONDANSETRON 4 MG/2 ML (SDV) Z0FRAN IV PRN (16:36)
[2018-05-07 17:15] LABS: CALCIUM 10.6 MG/DL (8.5-10.1); CREATININE SERUM 2.1 MG/DL (0.60-1.30); POTASSIUM 3.2 MMOL/L (3.6-5.0)
[2018-05-07] MEDS ORDERED: 1/2 NS SCH (18:15)
[2018-05-07] MEDS ORDERED: KCL SCH (18:15)
[2018-05-07] MEDS ORDERED: [UNRECOGNIZED DRUG - OTHER] SCH (18:15)
[2018-05-07] MEDS ORDERED: CATHETER FLUSH 10 ML SYR IV PRN (18:30)
[2018-05-07] MEDS: 1/2 NS IV SCH (18:46)
[2018-05-07] MEDS: POTASSIUM CHLORIDE IV SCH (18:46)
[2018-05-07 19:45] VITALS: BP 135/70
[2018-05-08 00:49] VITALS: BP 140/72
[2018-05-08] MEDS: POTASSIUM CHLORIDE IV SCH ×2 (01:29→08:01)
[2018-05-08] MEDS: ONDANSETRON 4 MG/2 ML (SDV) Z0FRAN IV PRN (01:29)
[2018-05-08] MEDS: 1/2 NS IV SCH ×2 (01:29→08:01)
[2018-05-08 04:30] VITALS: BP 147/77
[2018-05-08 05:50] LABS: BASOPHILS % (AUTO) 0 % (0-10); EOSINOPHILS % (AUTO) 0 % (0-10); HEMATOCRIT 48 % (35-52); HEMOGLOBIN 13.9 G/DL (11.5-16.0); LYMPHOCYTES # (AUTO) 1.5 X 10^3 (1.0-4.0); LYMPHOCYTES % (AUTO) 14 % (12-44); MEAN CORPUSCULAR HEMOGLOBIN 29 PG (25-34); MEAN CORPUSCULAR HGB CONC 29 G/DL (32-36); MEAN CORPUSCULAR VOLUME 100 FL (80-99); MONOCYTES # (AUTO) 0.9 X 10^3 (0.0-1.0); MONOCYTES % (AUTO) 9 % (0-12); NEUTROPHILS % (AUTO) 77 % (42-75); PLATELET COUNT 120 10^3/uL (130-400); RED BLOOD COUNT 4.79 10^6/uL (4.35-5.85); RED CELL DISTRIBUTION WIDTH 15.9 % (10.0-14.5); WHITE BLOOD COUNT 10.4 10^3/uL (4.3-11.0)
[2018-05-08 06:10] LABS: ALBUMIN 3.7 GM/DL (3.2-4.5); BILIRUBIN,TOTAL 1.2 MG/DL (0.1-1.0); CALCIUM 9.7 MG/DL (8.5-10.1); CREATININE SERUM 2.32 MG/DL (0.60-1.30); POTASSIUM 3.1 MMOL/L (3.6-5.0); TOTAL PROTEIN 7.2 GM/DL (6.4-8.2)
[2018-05-08 08:00] VITALS: BP 166/82
[2018-05-08] MEDS ORDERED: POTASSIUM CHLORIDE INJ 20 MEQ in D5 LR IV SOLUTION 1,000 ML IV SCH (11:00)
[2018-05-08] MEDS ORDERED: D5 LR W/KCL 20 MEQ/L 1,000 ML IV SCH (11:00)
[2018-05-08] MEDS: D5W 1000 ML IV SOLUTION 1,000 ML IV SCH (11:21)
[2018-05-08 12:00] VITALS: BP 160/81
--- NOTE | 2018-05-08 12:22 | History & Physical-Hospitalist ---
History of Present Illness HPI/Chief Complaint The patient's daughter is present today. She reports that in preparation for the patient's colonoscopy she had gotten 2 bottles of magnesium citrate. These were apparently large-size bottles and she had not intended that her mother use them both. Apparently she did and this yielded considerable diarrhea. In the morning which was yesterday she was very lethargic and confused and was brought to the emergency room where her sodium level was found to be 172. It was initially thought that using normal saline oriented aid in the returning the serum sodium to the normal range. After 4 hours this did not prove to make any difference and she was switched to one half normal saline. This morning's sodium was only 168. It is also noted that her potassium has remained stable, her creatinine has gone from a presentation of 2.29 to a 2.3 to and the chloride has steadily crept from 103-10 12 and then 115 this morning. This would raise concern about adding a hyperchloremic acidosis to the picture and the fluids have been readjusted to include a Lower tonicity and less chloride. Her daughter was present and reports that although she is more easily aroused she is still very confused. Source: patient, family Date Seen 05/08/18 Time Seen by Provider: 12:16 Attending Physician Hussein Gusman MD PCP Titi Kelly MD Referring Physician Date of Admission May 07, 2018 at 10:20 Home Medications & Allergies Home Medications Reviewed patient Home Medication Reconciliation performed by pharmacy medication reconciliations concrete technician and/or nursing. Patients Allergies have been reviewed. Allergies Allergies Coded Allergies adhesive tape (Verified Allergy, Mild, RASH, 09/26/16) aspirin (Verified Allergy, Unknown, 09/26/16) meperidine (Verified Allergy, Unknown, 09/26/16) nitrofurantoin (Verified Allergy, Unknown, 09/26/16) Uncoded Allergies SURGICAL TAPE ( Allergy, Unknown, 05/14/07) Past Shqeutm-Uwywzp-Cysmil Hx Past Med/Social Hx: Reviewed Nursing Past Med/Soc Hx Patient Social History Alcohol Use: Denies Use Recreational Drug Use: No Physical Abuse Screen: No Sexual Abuse: No Recent Foreign Travel: No Contact w/other who traveled: No Recent Hopitalizations: No Recent Infectious Disease Expo: No Immunizations Up To Date Tetanus Booster (TDap): Less than 5yrs Date of Pneumonia Vaccine: Sep 26, 2012 Date of Influenza Vaccine: Jul 09, 2016 Seasonal Allergies Seasonal Allergies: No Past Medical History Surgeries: Abdominal, Joint Replacement, Orthopedic Cardiac: Hypertension 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: No Genitourinary: Renal Failure, UTI-Chronic Gastrointestinal: Gastroesophageal Reflux, Hiatal Hernia Musculoskeletal: Osteoporosis, Arthritis, Fractures HEENT: Glaucoma Hearing Impairment: Hard of Hearing Psychosocial: Sleep Difficulties, Anxiety, Depression History of Blood Disorders: No Adverse Reaction to Blood Felipe: No Family History Alcoholism 19 FATHER Cardiovascular disease 19 MOTHER Colon cancer 19 MOTHER Diabetes mellitus 19 MOTHER Neoplasm 19 MOTHER (colon ca w/ mets to liver ) Respiratory disorder 19 FATHER No Family History of: AIDS Abdominal aortic aneurysm Arthritis Asthma Dementia Drug abuse Hypertension Kidney disease Myocardial infarction Psychosocial problem Seizure disorder Severe allergy Thyroid disease Tuberculosis Cancer, Diabetes Review of Systems ROS-Unable to Obtain: patient does not answer any questions Constitutional: see HPI Physical Exam Physical Exam Vital Signs Vital Signs - First Documented 05/07/18 05/07/18 05/07/18 08:43 08:59 21:00 Temp 98.0 Pulse 106 Resp 16 B/P (MAP) 105/75 (85) Pulse Ox 97 O2 Delivery Room Air O2 Flow Rate 2.00 FiO2 94 Capillary Refill : Less Than 3 Seconds Height, Weight, BMI Height: 5'0.00" Weight: 115lbs. 0.0oz. 52.632923lo; 22.5 BMI Method:Stated General Appearance: Thin, Other (somnolent and nonresponsive) Eyes: Bilateral Eye Normal Inspection HEENT: Other (tongue is dry and leathery) Respiratory: Chest Non Tender, Lungs Clear, Normal Breath Sounds, No Accessory Muscle Use, No Respiratory Distress Cardiovascular: Regular Rate, Rhythm, No Edema, No Gallop, No JVD, No Murmur, Normal Peripheral Pulses Gastrointestinal: Normal Bowel Sounds, No Organomegaly, No Pulsatile Mass, Non Tender, Soft Back: Normal Inspection Extremity: Normal Capillary Refill, Normal Inspection, Normal Range of Motion, Non Tender, No Calf Tenderness Neurologic/Psychiatric: Other (responds only to painful stimulus) Skin: Normal Color, Warm/Dry Lymphatic: No Adenopathy Results Results/Procedures Labs Laboratory Tests 05/07/18 09:05 05/07/18 16:31 05/08/18 05:28 Patient resulted labs reviewed. Assessment/Plan Admission Diagnosis Hypernatremia (172/140) Admission Status: Inpatient Order (span 2 midnights) Reason for Inpatient Admission: Severe hypernatremia Assessment and Plan Continue hypotonic fluids to lower serum sodium Clinical Quality Measures DVT/VTE Risk/Contraindication: Risk Factor Score Per Nursin RFS Level Per Nursing on Admit: 4+=Very High Contraindications-Pharm: Other *list below* Other: WILL NOTIFY DR. GUSMAN OF NEED TO ADDRESS DVT PROPHYLAXIS HUSSEIN GUSMAN MD May 08, 2018 12:22
--- NOTE | 2018-05-08 14:36 | ST Dysphagia Evaluation ---
Speech Evaluation-General Medical Diagnosis Neuro Stroke like Symptoms Therapy Diagnosis Therapy Diagnosis: Dysphagia Precautions Precautions: Aspiration Precautions/Isolations: Standard Precautions Referral Referring Physician: Dr. Boles Reason for Referral: Evaluation/Treatment Medical History Pertinent Medical History: Arthritis, COPD, GERD, HTN Reviewed History: Yes Speech PLF/Current-Dysphagia Cognitive Status Patient Orientation: Confused, Non-Verbal/Aphasic Restless Oral Motor Skills Dentition: Edentalous Ability to Follow Directions: Unable Oral Expression Ability: Unable Dysphagia Evaluation Consistencies Presented: Thin Liquid, Pureed Difficult to observe as pt kept moving around a lot. Difficult to observe as pt moved around a lot. Dietary Recommendations: Pureed Liquid Recommendations: Thin Pt will need assistance at meals. Unable to feed herself. Dysphagia Evaluation Summary Pt presents with questionable dysphagia due to limited participation with the evaluation. Pt was non-verbal, unable to follow directions. Presented pt with small sips of water and 1/2 teaspoon of applesauce x2 with no visible s/s of aspiration. Informed nursing the pt should be on a pureed diet with thin liquids and requires assistance. Barriers to Learning Inability to fully participate. Speech Short Term Goals Short Term Goals Short Term Goals No STGs established as skilled ST not indicated. Speech Weatherization Operations Manager Goals [facility] Goals No LTGs established as skilled ST not indicated. Speech-Plan Patient/Family Goals Patient/Family Goals: pt non-verbal Treatment Plan Speech Therapy Treatment Plan: Discontinue ST Skilled ST not indicated but will check on pt to determine how she is tolerating recommended diet. Frequency: Modified Program (IRF) (0 times) Estimated Hrs Per Day: Other (check in to determine pt tolerationg diet) Rehab Potential: Poor Time Speech Therapy Time In: 14:10 Speech Therapy Time Out: 14:25 Total Billed Time: 15 Billed Treatment Time 1, BETI JANNY Valentino May 08, 2018 14:36
[2018-05-08 16:15] VITALS: BP 156/74
[2018-05-08 16:39] LABS: CALCIUM 9.3 MG/DL (8.5-10.1); CREATININE SERUM 2.13 MG/DL (0.60-1.30); POTASSIUM 3.6 MMOL/L (3.6-5.0)
--- NOTE | 2018-05-08 16:43 | Occ Therapy Progress Note ---
Therapy Progress Note 1633 Nursing recommended deferring OT evaluation until tomorrow as patient would be unable to participate at this time due to her AMS. MERLIN RODNEY OT May 08, 2018 16:42
[2018-05-08 19:15] VITALS: BP 169/80
[2018-05-09] VITALS (7 sets, daily range): BP systolic 121–157; BP diastolic 59–87
[2018-05-09] MEDS: ONDANSETRON 4 MG/2 ML (SDV) Z0FRAN IV PRN ×2 (00:05→21:57)
[2018-05-09] MEDS: D5W 1000 ML IV SOLUTION 1,000 ML IV SCH ×2 (00:05→14:44)
--- NOTE | 2018-05-09 10:37 | Progress Note-Hospitalist ---
Subjective HPI/CC On Admission Date Seen by Provider: May 09, 2018 Time Seen by Provider: 10:00 The patient's daughter is present today. She reports that in preparation for the patient's colonoscopy she had gotten 2 bottles of magnesium citrate. These were apparently large-size bottles and she had not intended that her mother use them both. Apparently she did and this yielded considerable diarrhea. In the morning which was yesterday she was very lethargic and confused and was brought to the emergency room where her sodium level was found to be 172. It was initially thought that using normal saline oriented aid in the returning the serum sodium to the normal range. After 4 hours this did not prove to make any difference and she was switched to one half normal saline. This morning's sodium was only 168. It is also noted that her potassium has remained stable, her creatinine has gone from a presentation of 2.29 to a 2.3 to and the chloride has steadily crept from 103-10 12 and then 115 this morning. This would raise concern about adding a hyperchloremic acidosis to the picture and the fluids have been readjusted to include a Lower tonicity and less chloride. Her daughter was present and reports that although she is more easily aroused she is still very confused. Subjective/Events-last exam Patient doing much better Took 2 bottles of laxatives in prep for Colonoscopy that the daughter was unaware of until she consumed it Sodium level is improved on free water IVF at 157 down from 172. Pt working with PT and using walker just like home No pain is reported Creat improved overall Checked meds and labs Review of Systems General: Fatigue Objective Exam Vital Signs Vital Signs Date Time Temp Pulse Resp B/P (MAP) Pulse Ox O2 Delivery O2 Flow Rate FiO2 05/09/18 16:11 99.1 94 22 141/87 (105) 92 Room Air 05/09/18 10:56 2.00 05/07/18 21:00 94 Capillary Refill : Less Than 3 Seconds General Appearance: No Apparent Distress, WD/WN, Chronically ill, Cachetic Respiratory: Lungs Clear, Normal Breath Sounds Cardiovascular: Regular Rate, Rhythm, No Edema Neurologic/Psychiatric: Alert, Oriented x3 (subtle poor recall noted), No Motor /Sensory Deficits, Normal Mood/Affect Results/Procedures Lab Patient resulted labs reviewed. Assessment/Plan Assessment and Plan Assess & Plan/Chief Complaint Severe hypernatremia s/p overdosed on bowel prep Cognitive deficiency ARF Plan: Continue IVF of free water PT/OT Check labs in am Ambulate Diagnosis/Problems Diagnosis/Problems (1) Hypernatremia Status: Acute (2) Altered mental status Status: Acute Qualifiers: Altered mental status type: unspecified Qualified Codes: R41.82 - Altered mental status, unspecified (3) Acute on chronic renal failure Status: Acute Qualifiers: Acute renal failure type: unspecified Chronic kidney disease stage: unspecified stage Qualified Codes: N17.9 - Acute kidney failure, unspecified; N18.9 - Chronic kidney disease, unspecified (4) Hypokalemia Status: Acute (5) Dehydration Status: Acute Clinical Quality Measures DVT/VTE Risk/Contraindication: Risk Factor Score Per Nursin RFS Level Per Nursing on Admit: 4+=Very High Contraindications-Pharm: Other *list below* Other: WILL NOTIFY DR. GUSMAN OF NEED TO ADDRESS DVT PROPHYLAXIS SARAH CALLEJAS DO May 09, 2018 10:37
[2018-05-09] MEDS ORDERED: ONDANSETRON 8 MG (ZOFRAN) ORAL DISSOLVE TAB PO PRN (12:30)
[2018-05-09] MEDS ORDERED: ANTACID SUSP 30 ML UDC (MYLANTA) PO PRN (12:30)
--- NOTE | 2018-05-09 12:57 | Occupational Therapy Eval ---
OT Evaluation-General/PLF Medical Diagnosis Admission Date May 07, 2018 at 10:20 Medical Diagnosis: Neuro Stroke like Symptoms Onset Date: Jun 03, 2018 Therapy Diagnosis Therapy Diagnosis: decr self care, weakness, decr mobility, decr communication Height/Weight Height (Feet): 5 Height (Inches): 0.00 Weight (Pounds): 115 Weight (Ounces): 0.0 Precautions Precautions/Isolations: Standard Precautions Referral Physician: Elvi Referral Reason: Evaluation/Treatment Medical History Pertinent Medical History: Arthritis, COPD, GERD, HTN, Renal Insufficiency Additional Medical History Hiatal hernia surgery. Resection for colon mass. O2 at night. Emphysema. Chronic UTI. 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 Osteoporosis. Glaucoma. WILTON. Anxiety, depression, sleep difficulties Current History Pt took two bottles mag citrate prep for colonoscopy and became lethargic. AMS, dehydration. Acute on chronic renal failure. Hypernatremia and hypokalemia. Abnormal head CT Reviewed History: Yes Social History Current Living Status: Children (Lives with daughter) Entry Into Home: Ramp ADL-Prior Level of Function ADL PLOF Comments Daughter reported pt has been able to manage all of her basic self care needs. She lives with her daughter and sometimes cooks. 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 OT Current Status Subjective Pt seen in room, up in bed, agreeable to OT. Pt reported pain 0/10. Appearance Awake but unable to answer most questions. Daughter present Mental Status/Objective Patient Orientation: Person (not ), Confused Current Glasses/Contacts: No Hearing Aids: No Dentures/Partials: No (no teeth) Hand Dominance: Right Upper Extremity ROM Grossly WFL bilat Upper Extremity Strength Grossly 3+/5 bilat She was able to follow directions for ROM assessment and strength testing. ADL-Treatment ADL-Current She was asked about her total knees and total hip surgery. She was able to restate that she had a total knees done but could not recall "total hip" or "hip " procedure. Perseverated several times during eval, trying to recall hip surgery. She could not give her birthday, today's date, recall her age/ She was able to get a drink of water once it was handed to her. Supine to sit with no help, a little help needed to get L leg back into bed for sit to supine. L leg more edematous than R. Able to put slipper socks on while in bed - with no apparent inhibition about personal exposure. Able to scoot up toward head of bed while seated EOB. Pt left up in bed, 4 rails up, bed alarm on. Functional [place] Measure 0=Not Assessed/NA 4=Minimal Assistance 1=Total Assistance 5=Supervision or Setup 2=Maximal Assistance 6=Modified [place] 3=Moderate Assistance 7=Complete IndependenceIRFPAI Quality Coding Scale 6 Independent with activity with or without an assistive device 5 Patient requires set up or clean up by helper. Patient completes activity by themselves 4 Supervision or touching assist (CGA). [place] provide cues , steadying assist 3 The helper provides less than half the effort to complete the activity 2 The helper provides more than half the effort to complete the activity 1 Dependent. The helper does all the effort to complete an activity 7 Patient refused to complete or attempt activity 9 The patient did not perform the activity before the current illness or injury 88 Not attempted due to Medical conditions or safety concerns Education OT Patient Education: Purpose of tx/functional activities, Rehab process Teaching Recipient: Patient, Family Teaching Methods: Discussion Response to Teaching: Verbalize Understanding OT Clocksmith Goals Penitentiary Goals Time Frame: May 16, 2018 Eating (FIM): 6 Grooming(FIM): 5 Bathing(FIM): 5 Upper Body Dressing(FIM): 5 Lower Body Dressing(FIM): 5 Toileting(FIM): 5 Toilet/Commode Transfer(FIM): 5 Shower Transfer(FIM): 5 Additional Goals: 1-Demonstrate ADL Tasks, 2-Verbalize Understanding, 3- ImproveStrength/Liliana 1=Demonstrate adherence to instructed precautions during ADL tasks. 2=Patient will verbalize/demonstrate understanding of assistive devices/ modifications for ADL. 3=Patient will improve strength/tolerance for activity to enable patient to perform ADL's. OT Education/Plan Problem List/Assessment Assessment: Decreased Safety Aware, Decreased UE Strength, Dependent Transfers , Impaired Cognition, Impaired Self-Care Skills Pt would benefit from skilled OT to increase her independence with basic self care to allow her to safely return home. Discharge Recommendations Plan/Recommendations: Continue POC Comment May benefit from PT evaluation and Speech evaluation Treatment Plan/Plan of Care Treatment,Training & Education: Yes Patient would benefit from OT for education, treatment and training to promote independence in ADL's, mobility, safety and/or upper extremity function for ADL' s. Plan of Care: ADL Retraining, Functional Mobility, UE Funct Exercise/Act, UE Neuromus Re-Ed/Coord Treatment Duration: May 16, 2018 Frequency: 5 times per week Estimated Hrs Per Day: .5 hour per day Rehab Potential: Fair Time/GCodes Start Time: 11:00 Stop Time: 11:20 Total Time Billed (hr/min): 20 Billed Treatment Time visit, 20 minutes evaluation moderate intensity MERLIN RODNEY OT May 09, 2018 12:57
--- NOTE | 2018-05-09 13:37 | Physical Therapy Evaluation ---
PT Evaluation-General Medical Diagnosis Admission Date May 07, 2018 at 10:20 Medical Diagnosis: Neuro Stroke like Symptoms Onset Date: Jun 03, 2018 Therapy Diagnosis Therapy Diagnosis: decline in function, ams Height/Weight Height (Feet): 5 Height (Inches): 0.00 Weight (Pounds): 115 Weight (Ounces): 0.0 Precautions Precautions/Isolations: Standard Precautions Referral Physician: Elvi Reason for Referral: Evaluation/Treatment Medical History Pertinent Medical History: Arthritis, COPD, GERD, HTN, Renal Insufficiency Additional Medical History Past Medical History Surgeries: Abdominal, Joint Replacement, Orthopedic Cardiac: Hypertension 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: No Genitourinary: Renal Failure, UTI-Chronic Gastrointestinal: Gastroesophageal Reflux, Hiatal Hernia Musculoskeletal: Osteoporosis, Arthritis, Fractures HEENT: Glaucoma Hearing Impairment: Hard of Hearing Psychosocial: Sleep Difficulties, Anxiety, Depression History of Blood Disorders: No Adverse Reaction to Blood Felipe: No Reviewed History: Yes Social History Home: Single Level Current Living Status: Children (Lives with daughter) Entry Into Home: Ramp Prior/Core FIM Prior Level of Function Functional [place] Measure 0=Not Assessed/NA 4=Minimal Assistance 1=Total Assistance 5=Supervision or Setup 2=Maximal Assistance 6=Modified [place] 3=Moderate Assistance 7=Complete [place] Bed Mobility: 6 Transfers (B,C,W/C) (FIM): 6 Gait: 6 PT Evaluation-Current Subjective Patient in bed pre tx, agrees to PT, no complaints of pain. Pt/Family Goals to be independent at home Objective Patient Orientation: Person, Confused Attachments: [place] Catheter, IV ROM/Strength ROM Lower Extremities WNL Strength Lower Extremities 4-/5 gross bilateral lower extremities Neuromuscular (Tone, Coordination, Reflexes) NT Sensory Vision: Functional Hearing: Functional Hand Dominance: Right Sensation Right Lower Extremit: Intact Sensation Left Lower Extremity: Intact Sensation Lower Extremities Patient has intact light touch sensation bilaterally but states she does have some tingling and numbness in her legs below the knees. Transfers Functional [place] Measure 0=Not Assessed/NA 4=Minimal Assistance 1=Total Assistance 5=Supervision or Setup 2=Maximal Assistance 6=Modified [place] 3=Moderate Assistance 7=Complete [place] Transfers (B, C, W/C) (FIM): 4 Scootin Rollin Supine to/from Sit: 5 Sit to/from Stand: 4 bed t/f WC(FIM only if WC use): 4 Cues for safety, patient is impulsive and moves quickly Gait Mode of Locomotion: Walk Anticipated Mode of Locomotion: Walk Gait (FIM): 1 Distance: 40' Gait Level of Assist: 4 Gait Persons Needed: 1 Gait Assistive Device: FWW Comments/Gait Description Patient fatigues very quickly, needs cues for safety and direction. Balance Sitting Static: Normal Sitting Dynamic: Normal Standing Static: Good Standing Dynamic: Good Treatment seated exercises x15, AP, LAQ Assessment/Needs Patient is confused and impulsive, needs cues for safety. Patient in recliner post tx with nurse call, daughter in the room, instructed her to call nurse when she needs to get back to bed, notified nurse that patient was in recliner. Rehab Potential: Fair PT Short Term Goals Short Term Goals Time Frame: May 16, 2018 Transfers (B,C,W/C) (FIM): 5 Gait (FIM): 5 Gait Distance Comment: 150' Gait Level of Assist: 5 Gait Assistive Device: FWW PT Plan Problem List Problem List: Activity Tolerance, Functional Strength, Safety, Balance, Gait, Transfer, Bed Mobility Treatment/Plan Treatment Plan: Continue Plan of Care Treatment Plan: Bed Mobility, Education, Functional Activity Liliana, Functional Strength, Gait, Safety, Therapeutic Exercise, Transfers Treatment Duration: May 16, 2018 Frequency: 6 times per week Estimated Hrs Per Day: .25 hour per day (15-30') Patient and/or Family Agrees t: Yes Safety Risks/Education Patient Education: Gait Training, Transfer Techniques, Correct Positioning, Safety Issues Teaching Recipient: Patient Teaching Methods: Demonstration, Discussion Response to Teaching: Reinforcement Needed Discharge Recommendations Plan Patient will perform bed mobility and transfer training, balance and endurance training, functional strengthening, stair training, gait training, and education , to improve functional mobility and independence at home Therapy D/C Recommendations: Home w/ Family Support Time/GCodes Time In: 1315 Time Out: 1330 Total Billed Treatment Time: 15 Total Billed Treatment 1 visit ARAMIS 15' GILDA PADILLA PT May 09, 2018 13:37
[2018-05-09] MEDS ORDERED: SALINE NASAL SPRAY (OCEAN) 45 ML BTL PRN (14:15)
[2018-05-09] MEDS ORDERED: NAPROXEN 250 MG (NAPROSYN) TABLET PO PRN (14:15)
[2018-05-09] MEDS: CALCIUM CARB + VIT D 600 MG (CALCARB + D) TAB PO SCH (20:41)
[2018-05-09] MEDS: morphine ER 30 MG (MS CONTIN) TAB PO SCH (20:41)
[2018-05-09] MEDS ORDERED: GABAPENTIN 100 MG (NEURONTIN) CAP PO SCH (21:00)
[2018-05-09] MEDS ORDERED: POLYETHYLENE GLYCOL 17 GM (MIRALAX) PACK PO PRN (21:00)
[2018-05-10] MEDS: D5W 1000 ML IV SOLUTION 1,000 ML IV SCH (03:58)
[2018-05-10 04:03] VITALS: BP 115/57
[2018-05-10 06:01] LABS: BASOPHILS % (AUTO) 0 % (0-10); EOSINOPHILS # (AUTO) 0.3 10^3/uL (0.0-0.3); EOSINOPHILS % (AUTO) 4 % (0-10); HEMATOCRIT 37 % (35-52); HEMOGLOBIN 11.1 G/DL (11.5-16.0); LYMPHOCYTES # (AUTO) 1.7 X 10^3 (1.0-4.0); LYMPHOCYTES % (AUTO) 20 % (12-44); MEAN CORPUSCULAR HEMOGLOBIN 29 PG (25-34); MEAN CORPUSCULAR HGB CONC 30 G/DL (32-36); MEAN CORPUSCULAR VOLUME 97 FL (80-99); MEAN PLATELET VOLUME 11.7 FL (7.4-10.4); MONOCYTES # (AUTO) 0.6 X 10^3 (0.0-1.0); MONOCYTES % (AUTO) 7 % (0-12); NEUTROPHILS % (AUTO) 69 % (42-75); PLATELET COUNT 68 10^3/uL (130-400); RED CELL DISTRIBUTION WIDTH 15.2 % (10.0-14.5); WHITE BLOOD COUNT 8.7 10^3/uL (4.3-11.0)
[2018-05-10 06:28] LABS: ALBUMIN 2.8 GM/DL (3.2-4.5); BILIRUBIN,TOTAL 1.1 MG/DL (0.1-1.0); CALCIUM 8.1 MG/DL (8.5-10.1); CREATININE SERUM 1.09 MG/DL (0.60-1.30); POTASSIUM 3.4 MMOL/L (3.6-5.0); TOTAL PROTEIN 5.2 GM/DL (6.4-8.2)
[2018-05-10] MEDS: ONDANSETRON 4 MG/2 ML (SDV) Z0FRAN IV PRN (07:40)
[2018-05-10 07:43] VITALS: BP 107/69
[2018-05-10] MEDS ORDERED: FAMOTIDINE 20 MG (PEPCID) TABLET PO SCH (09:00)
[2018-05-10] MEDS ORDERED: FLUoxetine HCL 20 MG (PROzac) CAP PO SCH (09:00)
[2018-05-10] MEDS ORDERED: VITAMIN D3 1,000 UNITS (CHOLECALCIFEROL) TABLET PO SCH (09:00)
[2018-05-10] MEDS ORDERED: FERROUS SULF 325 MG (IRON) TAB PO SCH (09:00)
[2018-05-10] MEDS ORDERED: MONTELUKAST 10 MG (SINGULAIR) TAB PO SCH (09:00)
[2018-05-10] MEDS ORDERED: LOTEPREDNOL ETABONATE OD SCH (09:00)
[2018-05-10] MEDS ORDERED: OMEP40CA36 PO (09:27)
--- NOTE | 2018-05-10 09:30 | Discharge Summary-Hospitalist ---
Diagnosis/Chief Complaint Date of Admission May 07, 2018 at 10:20 Date of Discharge Discharge Date: May 10, 2018 Admission Diagnosis Hypernatremia (172/140) Discharge Diagnosis (1) Hypernatremia Status: Resolved (2) Altered mental status Status: Resolved (3) Acute on chronic renal failure Status: Resolved (4) Hypokalemia Status: Resolved (5) Dehydration Status: Resolved Discharge Summary Discharge Physical Exam Allergies: Coded Allergies: adhesive tape (Verified Allergy, Mild, RASH, 09/26/16) aspirin (Verified Allergy, Unknown, 09/26/16) meperidine (Verified Allergy, Unknown, 09/26/16) nitrofurantoin (Verified Allergy, Unknown, 09/26/16) Uncoded Allergies: SURGICAL TAPE (Allergy, Unknown, 05/14/07) Vitals & I&Os Vital Signs Date Time Temp Pulse Resp B/P (MAP) Pulse Ox O2 Delivery O2 Flow Rate FiO2 05/10/18 07:43 98.6 76 18 107/69 (82) 96 Room Air 05/10/18 07:23 2.00 05/07/18 21:00 94 General Appearance: Alert, Oriented X3, Cooperative Respiratory: Clear to Auscultation, Normal Air Movement Cardiovascular: Regular Rate, Normal S1, Normal S2 Neuro: Normal Gait, Normal Speech, Strength at 5/5 X4 Ext Psych/Mental Status: Mental Status NL, Mood NL Hospital Course Hospital course: Patient had a brief hospital course she was placed on aggressive IV fluid resuscitation due to severe hypernatremia at 172 due to taking 2 bottles of colon prep to obtain colonoscopy to be performed by Dr. Villalobos and the daughter whom she lives with was unaware she took 2 bottles of milk of magnesia and MiraLAX. She was stabilized hyperkalemia resolved acute renal failure resolved and overall was able to be discharged in improved condition with close follow-up with Dr. Kelly next week. Dr. Villalobos will be in contact to perform colonoscopy is planned but daughter will watch her prep process closer this time. Labs (last 24 hrs) Laboratory Tests 05/10/18 05:49: White Blood Count 8.7, Red Blood Count 3.80L, Hemoglobin 11.1#L, Hematocrit 37, Mean Corpuscular Volume 97, Mean Corpuscular Hemoglobin 29, Mean Corpuscular Hemoglobin Concent 30L, Red Cell Distribution Width 15.2H, Platelet Count 68L, Mean Platelet Volume 11.7H, Neutrophils (%) (Auto) 69, Lymphocytes (%) (Auto) 20 , Monocytes (%) (Auto) 7, Eosinophils (%) (Auto) 4, Basophils (%) (Auto) 0, Neutrophils # (Auto) 6.0, Lymphocytes # (Auto) 1.7, Monocytes # (Auto) 0.6, Eosinophils # (Auto) 0.3, Basophils # (Auto) 0.0, Sodium Level 144, Potassium Level 3.4L, Chloride Level 108H, Carbon Dioxide Level 28, Anion Gap 8, Blood Urea Nitrogen 37H, Creatinine 1.09, Estimat Glomerular Filtration Rate 48, BUN/ Creatinine Ratio 34, Glucose Level 108H, Calcium Level 8.1L, Total Bilirubin 1.1H, Aspartate Amino Transf (AST/SGOT) 107H, Alanine Aminotransferase (ALT/SGPT ) 68H, Alkaline Phosphatase 78, Total Protein 5.2L, Albumin 2.8L Patient resulted labs reviewed. Pending Labs Laboratory Tests 05/10/18 05:49: White Blood Count 8.7, Red Blood Count 3.80, Hemoglobin 11.1, Hematocrit 37, Mean Corpuscular Volume 97, Mean Corpuscular Hemoglobin 29, Mean Corpuscular Hemoglobin Concent 30, Red Cell Distribution Width 15.2, Platelet Count 68, Mean Platelet Volume 11.7, Neutrophils (%) (Auto) 69, Lymphocytes (%) (Auto) 20 , Monocytes (%) (Auto) 7, Eosinophils (%) (Auto) 4, Basophils (%) (Auto) 0, Neutrophils # (Auto) 6.0, Lymphocytes # (Auto) 1.7, Monocytes # (Auto) 0.6, Eosinophils # (Auto) 0.3, Basophils # (Auto) 0.0, Sodium Level 144, Potassium Level 3.4, Chloride Level 108, Carbon Dioxide Level 28, Anion Gap 8, Blood Urea Nitrogen 37, Creatinine 1.09, Estimat Glomerular Filtration Rate 48, BUN/ Creatinine Ratio 34, Glucose Level 108, Calcium Level 8.1, Total Bilirubin 1.1, Aspartate Amino Transf (AST/SGOT) 107, Alanine Aminotransferase (ALT/SGPT) 68, Alkaline Phosphatase 78, Total Protein 5.2, Albumin 2.8 Discussion & Recommendations Discharge Planning: <30 minutes discharge planning Discharge Home Medications: Active Scripts Active Omeprazole 40 Mg Capsule.dr 40 Mg PO DAILY Reported Proctosol-Hc (Hydrocortisone) 28.35 Gm Cream.appl TOP QID PRN Miralax (Polyethylene Glycol 3350) 17 Gm Powd.pack 17 Gm PO DAILY PRN Mylanta Suspension (Al Hydrox/Mg Hydrox/Simethicone) 30 Ml Oral.susp 30 Ml PO QID PRN Aleve (Naproxen Sodium) 220 Mg Tablet 220-440 Mg PO Q8H PRN Ondansetron Odt (Ondansetron) 8 Mg Tab.rapdis 8 Mg PO Q8H PRN Calcium 600 + Vit D3 Tablet (Calcium Carbonate/Vitamin D3) 1 Each Tablet 1 Tab PO BID Morphine Sulfate ER (Morphine Sulfate) 30 Mg Tablet.er 30 Mg PO BID Gabapentin 100 Mg Capsule 100 Mg PO HS Fluoxetine HCl 20 Mg Capsule 20 Mg PO DAILY Vitamin D (Cholecalciferol (Vitamin D3)) 1,000 Unit Capsule 3,000 Unit PO DAILY Lotemax (Loteprednol Etabonate) 5 Gm Drops.gel 1 Drop OD DAILY Voltaren (Diclofenac Sodium) 100 Gm Gel..gram. TP BID PRN Toviaz (Fesoterodine Fumarate) 8 Mg Tab.er.24h 4 Mg PO HS TAKES 1/2 (8MG) TABLET Saline Nasal Mist (Sodium Chloride) 126 Ml Mist 2 [place] NS BID PRN Montelukast Sodium 10 Mg Tablet 10 Mg PO DAILY Famotidine 20 Mg Tablet 20 Mg PO DAILY Iron (Ferrous Sulfate) 325 Mg Tablet 325 Mg PO DAILY Instructions to patient/family Please see electronic discharge instructions given to patient. Clinical Quality Measures DVT/VTE Risk/Contraindication: Risk Factor Score Per Nursin RFS Level Per Nursing on Admit: 4+=Very High Contraindications-Pharm: Other *list below* Other: WILL NOTIFY DR. GUSMAN OF NEED TO ADDRESS DVT PROPHYLAXIS Problem Qualifiers (1) Altered mental status: Altered mental status type: unspecified Qualified Codes: R41.82 - Altered mental status, unspecified (2) Acute on chronic renal failure: Acute renal failure type: unspecified Chronic kidney disease stage: unspecified stage Qualified Codes: N17.9 - Acute kidney failure, unspecified; N18.9 - Chronic kidney disease, unspecified SARAH CALLEJAS DO May 10, 2018 09:30
[2018-05-10] MEDS: CALCIUM CARB + VIT D 600 MG (CALCARB + D) TAB PO SCH (10:00)
[2018-05-10] MEDS: morphine ER 30 MG (MS CONTIN) TAB PO SCH (10:01)
[2018-05-10] MEDS ORDERED: PANTOPRAZOLE 40 MG (PROTONIX) TAB PO NR (10:08)
[2018-05-10] MEDS ORDERED: PATIENT MAY USE OWN MED,SINGLE MED PO SCH (10:15)
[2018-05-10 12:38] VITALS: BP 100/60
--- NOTE | 2018-05-10 13:59 | Physical Therapy Progress Note ---
Therapy Progress Note PHYSICAL THER attempts tx for pt but pt is discharging per Nurse after talking to Dr Sigala. Pt does not want seen at this time. 1 visit, no tx rendered ILDEFONSO GANDHI PHYSICAL THER May 10, 2018 13:59
[2018-05-10] MEDS ORDERED: TOLTERODINE LA 4 MG (DETROL) CAP PO SCH (21:00)
[2018-05-11] MEDS ORDERED: PANTOPRAZOLE 40 MG (PROTONIX) TAB PO SCH (07:00)
== END 2018-05-10 16:56 | disposition home or self-care (01) | DRG 683 ==
LOC: EDUNIT# 08:43 → ER 08:44 → 4TH 10:20
PROVIDERS: ADMIT Internal Medicine; ATTEND Internal Medicine
DX: N17.9 Acute kidney failure, unspecified (principal); E87.0 Hyperosmolality and hypernatremia; E86.0 Dehydration; T47.4X5A Adverse effect of other laxatives, initial encounter; E87.6 Hypokalemia; I12.9 Hypertensive chronic kidney disease with stage 1 through stage 4 chronic kidney disease, or unspecified chronic kidney disease; N18.9 Chronic kidney disease, unspecified; J43.9 Emphysema, unspecified; R41.82 Altered mental status, unspecified; Z66 Do not resuscitate; R29.703 NIHSS score 3; K21.9 Gastro-esophageal reflux disease without esophagitis; M81.0 Age-related osteoporosis without current pathological fracture; M19.91 Primary osteoarthritis, unspecified site; H40.9 Unspecified glaucoma; H91.90 Unspecified hearing loss, unspecified ear; G47.9 Sleep disorder, unspecified; F41.9 Anxiety disorder, unspecified; F32.9 Major depressive disorder, single episode, unspecified; R90.89 Other abnormal findings on diagnostic imaging of central nervous system; Z80.0 Family history of malignant neoplasm of digestive organs; Z90.49 Acquired absence of other specified parts of digestive tract; Z96.653 Presence of artificial knee joint, bilateral; Z96.641 Presence of right artificial hip joint
CPT/HCPCS: 36415; 51702; 70450; 71045; 80048; 80053; 80061; 81000; 82962; 84484; 85025; 85379; 85610; 85730; 93005; 93041; 96360

== ENCOUNTER 2018-10-12 14:14 | Inpatient (IN) | payer MEDICARE, OTHER | END 2018-10-15 15:40 | disposition home health service (06) | LOC: ER 14:14 → 4TH 17:00 | DX: I82.412 Acute embolism and thrombosis of left femoral vein (principal); B34.9 Viral infection, unspecified; R09.02 Hypoxemia; I95.9 Hypotension, unspecified; R79.1 Abnormal coagulation profile; S80.01XA Contusion of right knee, initial encounter; S80.02XA Contusion of left knee, initial encounter; I12.9 Hypertensive chronic kidney disease with stage 1 through stage 4 chronic kidney disease, or unspecified chronic kidney disease; N18.9 Chronic kidney disease, unspecified; H40.9 Unspecified glaucoma; J43.9 Emphysema, unspecified; K21.9 Gastro-esophageal reflux disease without esophagitis; M81.0 Age-related osteoporosis without current pathological fracture; M19.91 Primary osteoarthritis, unspecified site; G47.9 Sleep disorder, unspecified; F41.9 Anxiety disorder, unspecified; F32.9 Major depressive disorder, single episode, unspecified; R40.2410 Glasgow coma scale score 13-15, unspecified time; W06.XXXA Fall from bed, initial encounter; Z99.81 Dependence on supplemental oxygen; Z96.653 Presence of artificial knee joint, bilateral; Z96.641 Presence of right artificial hip joint; Z90.49 Acquired absence of other specified parts of digestive tract ==

== ENCOUNTER 2018-11-04 21:01 | Inpatient (IN) | payer MEDICARE, OTHER ==
[~2018-11-04] VITALS: Ht 152.4 cm; Wt 66.7 kg
[2018-11-04 12:33] VITALS: BP 106/67
[~2018-11-04 21:01] MED LIST changes: +2; +CALC1TAB95 PO; +GABA-488 PO; +HYDR-3816 PO; +HYDR28.341 TOP; +HYDR30CR69 TOP; +MAG30ORA2 PO; +NAPR220T66 PO; +OMEP40CA36 PO; +ONDA8TAB13 PO; +POLY15DR14 OS; +POLY17PO6 PO; +RIVA20TA PO; +SALI45SP MM
--- OUTSIDE RECORDS SUMMARY | 2018-11-04 21:05 | XMS REPORT | Clinical Summary ---
Author Author [facility] Organization [facility] Address Unknown Phone Unavailable Care Team Providers Care Vault Teller Name Role Phone PCP Unavailable Allergies Active Allergy Reactions Severity Noted Date Comments Aspirin, Buffered 01/06/2016 Meperidine 01/06/2016 Current Medications Prescription Sig. Disp. Refills Start End Date Status Date ALPRAZolam (XANAX) 0.5 MG Take 0.5 mg by mouth Active tablet nightly as needed for sleep. calcium-vitamin D 500 Take 1 tablet by mouth 2 Active mg(1,250mg) -200 unit per (two) times a day with tablet meals. oxyCODONE-acetaminophen Take 1 tablet by mouth Active (PERCOCET) 5-325 mg per every 4 (four) hours as tablet needed for pain. fluorometholone (FML) 0.1 1 drop every 4 (four) Active % ophthalmic suspension hours. ferrous sulfate 325 (65 Take 325 mg by mouth Active FE) MG tablet daily with breakfast. escitalopram oxalate Take 20 mg by mouth Active (LEXAPRO) 20 MG tablet daily. metoclopramide (REGLAN) 5 Take 5 mg by mouth 4 Active MG tablet (four) times a day. morphine (MS CONTIN) 30 Take 30 mg by mouth 2 Active MG 12 hr tablet (two) times a day. esomeprazole (NEXIUM) 40 Take 40 mg by mouth every Active MG capsule morning before breakfast. nystatin (MYCOSTATIN) Take by mouth. Active 100,000 unit/mL suspension famotidine (PEPCID) 20 MG Take 20 mg by mouth 2 Active tablet (two) times a day. potassium chloride Take 10 mEq by mouth Active (KLOR-CON) 10 MEQ CR daily. tablet senna (SENOKOT) 8.6 mg Take 1 tablet by mouth Active tablet daily. montelukast (SINGULAIR) Take 10 mg by mouth Active 10 mg tablet nightly. acetaminophen (TYLENOL) Take 650 mg by mouth Active 325 MG tablet every 6 (six) hours as needed for pain. cholecalciferol, vitamin Take 1,000 Units by mouth Active D3, 1,000 unit tablet daily. diclofenac (VOLTAREN) 0.1 1 drop 4 (four) times a Active % ophthalmic solution day. cetirizine (ZYRTEC) 10 MG Take 10 mg by mouth Active tablet daily. Active Problems Not on file Social History Tobacco Use Types Packs/Day Years Used Date Never Assessed Sex Assigned at Date Recorded Not on file Last Filed Vital Signs Vital Sign Reading Time Taken Blood Pressure 131/70 01/06/2016 4:27 AM CDT Pulse 76 01/06/2016 4:27 AM CDT Temperature - - Respiratory Rate 14 01/06/2016 4:27 AM CDT Oxygen Saturation 95% 01/06/2016 4:27 AM CDT Inhaled Oxygen - - Concentration Weight 61.5 kg (135 lb 9.3 oz) 01/06/2016 4:27 AM CDT Height 157.5 cm (5' 2") 01/06/2016 4:27 AM CDT Body Mass Index 24.8 01/06/2016 4:27 AM CDT Plan of Treatment Not on file Results Not on filefrom Last 3 Months
--- OUTSIDE RECORDS SUMMARY | 2018-11-04 21:12 | XMS REPORT | Continuity of Care Document ---
Author Author [facility] Organization [facility] Address Unknown Phone Unavailable Allergies Active Description Code Type Severity Reaction Onset Reported/Identified Relationship to Patient Clinical Status Yes SURGICAL TAPE SURGICAL TAPE Unknown N/A 05/14/2007 Yes adhesive tape [id number] Drug Allergy Mild RASH 10/12/2018 Yes aspirin [id number] Drug Allergy Unknown N/A 10/12/2018 Yes meperidine [id number] Drug Allergy Unknown N/A 10/12/2018 Yes nitrofurantoin [id number] Drug Allergy Unknown N/A 10/12/2018 Medications There is no data. Problems Date [...] Ot V16.0 FAMILY HX-GI MALIGNANCY 03/04/2013 ANTOINE HURTADO MD Ot 276.51 DEHYDRATION 03/04/2013 ANTOINE HURTADO MD Ot 300.00 ANXIETY STATE NOS 03/04/2013 ANTOINE HURTADO MD Ot 492.8 EMPHYSEMA NEC 03/04/2013 ANTOINE HURTADO MD Ot 724.2 LUMBAGO 03/04/2013 ANTOINE HURTADO MD Ot 780.96 GENERALIZED PAIN 03/04/2013 ANTOINE HURTADO MD Ot 787.01 NAUSEA WITH VOMITING 03/04/2013 ANTOINE HURTADO MD Ot 787.91 DIARRHEA 03/04/2013 ANTOINE HURTADO MD Ot V12.29 PERSONAL HX OF OT ENDOCRINE, METABOLIC 04/25/2013 ANTOINE HURTADO MD Ot 458.9 HYPOTENSION NOS 05/07/2013 ANTOINE HURTADO MD Ot 273.8 DIS PLAS PROTEIN MET NEC 05/07/2013 ANTOINE HURTADO MD Ot 275.2 DIS MAGNESIUM METABOLISM 05/07/2013 ANTOINE HURTADO MD Ot 275.3 DIS PHOSPHORUS METABOL 05/07/2013 ANTOINE HURTADO MD Ot 276.1 HYPOSMOLALITY 05/07/2013 ANTOINE HURTADO MD Ot 285.9 ANEMIA NOS 05/07/2013 ANTOINE HURTADO MD Ot 287.5 THROMBOCYTOPENIA NOS 05/07/2013 ANTOINE HURTADO MD Ot 300.00 ANXIETY STATE NOS 05/07/2013 ANTOINE HURTADO MD Ot 305.1 TOBACCO USE DISORDER 05/07/2013 ANTOINE HURTADO MD Ot 311 DEPRESSIVE DISORDER NEC 05/07/2013 ANTOINE HURTADO MD Ot 338.4 CHRONIC PAIN SYNDROME 05/07/2013 ANTOINE HURTADO MD Ot 458.9 HYPOTENSION NOS 05/07/2013 ANTOINE HURTADO MD Ot 492.8 EMPHYSEMA NEC 05/07/2013 ANTOINE HURTADO MD Ot 530.5 DYSKINESIA OF ESOPHAGUS 05/07/2013 ANTOINE HURTADO MD Ot 584.9 ACUTE RENAL FAILURE, UNSPECIFIED 05/07/2013 ANTOINE HURTADO MD Ot 599.0 URIN TRACT INFECTION NOS 05/07/2013 ANTOINE HURTADO MD Ot 716.90 ARTHROPATHY NOS-UNSPEC 05/07/2013 ANTOINE HURTADO MD Ot 733.00 OSTEOPOROSIS NOS 05/07/2013 ANTOINE HURTADO MD Ot 783.0 ANOREXIA 05/07/2013 ANTOINE HURTADO MD Ot 783.21 LOSS OF WEIGHT 05/07/2013 ANTOINE HURTADO MD Ot 785.50 SHOCK NOS 05/07/2013 ANTOINE HURTADO MD Ot 787.01 NAUSEA WITH VOMITING 05/07/2013 ANTOINE HURTADO MD Ot 823.00 FX UPPER END TIBIA-CLOSE 05/07/2013 ANTOINE HURTADO MD Ot E849.0 ACCIDENT IN HOME 05/07/2013 ANTOINE HURTADO MD Ot E888.9 FALL NOS 05/07/2013 ANTOINE HURTADO MD Ot V12.59 HX-CIRCULATORY SYST DIS,NEC 05/07/2013 ANTOINE HURTADO MD Ot V13.02 PERSONAL HISTORY, URINARY (TRACT) INFECT 05/07/2013 ANTOINE HURTADO MD Ot V66.7 ENC FOR PALLIATIVE CARE [...] Richards Ot 496 06/24/2015 RUSSELL GELLER, JANE Richarsd Ot 733.00 06/24/2015 RUSSELL GELLER, JANE Richards [...] Ot V43.65 KNEE JOINT REPLACEMENT STATUS 07/07/2015 JANE WELLS MD Ot Z87.440 PERSONAL HISTORY OF URINARY (TRACT) INFE 07/07/2015 JANE WELLS MD Ot Z96.649 PRESENCE OF UNSPECIFIED ARTIFICIAL HIP J 07/07/2015 JANE WELLS MD Ot Z96.659 PRESENCE OF UNSPECIFIED ARTIFICIAL KNEE 07/15/2015 HENRIETTA STACY CORROSION CONTROL ENGINEER Ot 724.2 07/15/2015 HENRIETTA STACY CORROSION CONTROL ENGINEER Ot V76.12 07/31/2015 HENRIETTA STACY CORROSION CONTROL ENGINEER Ot 724.2 07/31/2015 HENRIETTA STACY CORROSION CONTROL ENGINEER Ot V76.12 08/05/2015 Ot 733.00 08/05/2015 Ot [...] MORALES Tran Ot 599.70 08/05/2015 HENRIETTA STACY CORROSION CONTROL ENGINEER Ot 724.2 08/05/2015 HENRIETTA STACYP Ot V76.12 [...] Ot 242.90 08/06/2015 Ot 244.9 08/06/2015 ANTOINE HURTADO MD Ot V76.12 08/06/2015 FRANKY GELLER, ANTOINE Tran Ot 789.00 08/06/2015 ANTOINE HURTADO MD Ot 791.9 08/06/2015 HENRIETTA STACY Ot [...] V58.69 08/06/2015 Ot V72.84 08/06/2015 CORY GELLER, MORALES Tran Ot 599.70 08/06/2015 HENRIETTA STACY CORROSION CONTROL ENGINEER Ot 724.2 08/06/2015 HENRIETTA STACY CORROSION CONTROL ENGINEER Ot V76.12 08/06/2015 RUSSELL GELLER, JANE Susie [...] 08/10/2015 AARON GELLER, KASHMIR Browning Ot Y92.009 [facility] [address] IN [facility] NON-INSTITUT (PRIVATE 08/10/2015 AARON GELLER, KASHMIR Browning Ot Z96.642 PRESENCE OF LEFT ARTIFICIAL HIP JOINT 08/10/2015 KASHMIR WALKER MD Ot 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 RIGHT ARTIFICIAL KNEE JOINT 08/10/2015 KASHMIR WALKER MD Ot Z96.652 PRESENCE OF LEFT ARTIFICIAL KNEE JOINT 09/07/2015 FARNKY GELLER, ANTOINE Tran Ot D64.9 09/08/2015 HENRIETTA STACY [facility] Ot 724.2 09/08/2015 HENRIETTA STACY [facility] Ot V76.12 09/09/2015 HENRIETTA STACY [facility] Ot 724.2 09/09/2015 HENRIETTA STACY CORROSION CONTROL ENGINEER Ot V76.12 10/01/2015 RUSSELL GELLER, JANE Richards [...] ANTOINE A Ot D64.9 10/07/2015 HENRIETTA STACY CORROSION CONTROL ENGINEER Ot 724.2 10/07/2015 HENRIETTA STACY CORROSION CONTROL ENGINEER Ot V76.12 10/07/2015 RUSSELL GELLER, JANE Susie Ot 275.42 10/07/2015 RUSSELL GELLER, JANE Susie Ot 287.5 10/07/2015 RUSSELL GELLER, JANE Susie Ot 585.9 10/07/2015 RUSSELL GELLER, JANE Susie Ot 733.00 10/07/2015 RUSSELL GELLER, JANE Richards Ot V13.02 10/07/2015 RUSSELL GELLER, JANE Susie Ot V43.64 10/07/2015 RUSSLEL GELLER, JANE K Ot V43.65 10/08/2015 RUSSELL [...] KASHMIR T Ot 996.77 10/23/2015 AARON GELLER, KASHIMR T Ot V43.65 10/23/2015 AARON GELLER, KASHMIR [...] HENRIETTA STACY Ot 724.2 10/23/2015 HENRIETTA STACY CORROSION CONTROL ENGINEER Ot V76.12 10/23/2015 RUSSELL GELLER, JANE Richards [...] Tran Ot V76.12 11/02/2015 FRANKY GELLER, ANTOINE Tran Ot 789.00 11/02/2015 FRANKY GELLER, ANTOINE A Ot 791.9 11/02/2015 HENRIETTA STACY CORROSION CONTROL ENGINEER Ot V76.12 11/02/2015 AARON GELLER, KASHMIR T [...] ANTOINE A Ot D64.9 11/02/2015 HENRIETTA STACY CORROSION CONTROL ENGINEER Ot 724.2 11/02/2015 HENRIETTA STACY CORROSION CONTROL ENGINEER Ot V76.12 11/02/2015 RUSSELL GELLER, JANE Richards Ot D69.6 11/02/2015 RUSSELL GELLER, JANE Richards Ot E83.52 11/02/2015 RUSSELL GELLER, JANE Richards Ot M81.0 11/02/2015 RUSSELL GELLER, JANE Richards Ot N18.9 11/02/2015 RUSSELL GELLER, JANE Richards Ot Z79.899 11/11/2015 RUSSELL GELLER, JANE Richards Ot D69.6 11/11/2015 RUSSELL GELLER, JANE Richards Ot E83.52 11/11/2015 RUSSELL GELLER, JANE Richards Ot M81.0 11/11/2015 RUSSELL GELLER, JANE Richards Ot N18.9 11/11/2015 RUSSELL GELLER, JANE Richards Ot Z79.899 11/25/2015 AUGUSTINE DUFFY PENAL OFFICER Ot R05 12/15/2015 AUGUSTINE DUFFY PENAL OFFICER Ot R05 01/05/2016 RUSSELL GELLER, JANE Richards Ot D69.6 THROMBOCYTOPENIA, UNSPECIFIED 01/05/2016 RUSSELL GELLER, JANE Richards Ot E83.52 HYPERCALCEMIA 01/05/2016 RUSSELL GELLER, JANE Richards Ot M81.0 AGE-RELATED OSTEOPOROSIS W/O CURRENT PAT 01/05/2016 RUSSELL GELLER, JANE Richards Ot N18.9 CHRONIC KIDNEY DISEASE, UNSPECIFIED 01/05/2016 RUSSELL GELLER, JANE Richards Ot Z79.899 OTHER NURSING HOME (CURRENT) DRUG THERAPY 01/06/2016 JANE WELLS MD Ot D69.6 01/06/2016 RUSSELL GELLER, JANE Richards Ot E83.52 01/06/2016 RUSSELL GELLER, JANE Richards Ot M81.0 01/06/2016 RUSSELL GELLER, JANE Richards Ot N18.9 01/06/2016 RUSSELL GELLER, JANE Richards Ot Z79.899 01/15/2016 HENRIETTA STACY CORROSION CONTROL ENGINEER Ot R07.81 02/03/2016 HENRIETTA STACY CORROSION CONTROL ENGINEER Ot R07.81 PLEURODYNIA 02/07/2016 RUSSELL GELLER, JANE [...] 03/29/2016 JANE WELLS MD Ot Z79.899 OTHER NURSING HOME (CURRENT) DRUG THERAPY 04/07/2016 JANE WELLS MD Ot D69.6 THROMBOCYTOPENIA, UNSPECIFIED 04/07/2016 JANE WELLS MD Ot E83.52 HYPERCALCEMIA 04/07/2016 JANE WELLS MD Ot M81.0 AGE-RELATED OSTEOPOROSIS W/O CURRENT PAT 04/07/2016 JANE WELLS MD Ot N18.9 CHRONIC KIDNEY DISEASE, UNSPECIFIED 04/07/2016 JANE WELLS MD Ot Z79.899 OTHER [facility] (CURRENT) DRUG THERAPY 04/07/2016 JANE WELLS MD Ot D69.6 THROMBOCYTOPENIA, UNSPECIFIED 04/07/2016 JANE WELLS MD Ot E83.52 HYPERCALCEMIA 04/07/2016 JANE WELLS MD Ot M81.0 AGE-RELATED OSTEOPOROSIS W/O CURRENT PAT 04/07/2016 JANE WELLS MD Ot N18.9 CHRONIC KIDNEY DISEASE, UNSPECIFIED 04/07/2016 JANE WELLS MD Ot Z79.899 OTHER [facility] (CURRENT) DRUG THERAPY 05/05/2016 JANE WELLS MD Ot D69.6 THROMBOCYTOPENIA, UNSPECIFIED 05/05/2016 JANE WELLS MD Ot E83.52 HYPERCALCEMIA 05/05/2016 JANE WELLS MD Ot M81.0 AGE-RELATED OSTEOPOROSIS W/O CURRENT PAT 05/05/2016 JANE WELLS MD Ot N18.9 CHRONIC KIDNEY DISEASE, UNSPECIFIED 05/05/2016 JANE WELLS MD Ot Z79.899 OTHER NURSING HOME (CURRENT) DRUG THERAPY 05/13/2016 JANE WELLS MD Ot D69.6 THROMBOCYTOPENIA, UNSPECIFIED 05/13/2016 JANE WELLS MD Ot E83.52 HYPERCALCEMIA 05/13/2016 JANE WELLS MD Ot M81.0 AGE-RELATED OSTEOPOROSIS W/O CURRENT PAT 05/13/2016 JANE WELLS MD Ot N18.9 CHRONIC KIDNEY DISEASE, UNSPECIFIED 05/13/2016 JANE WELLS MD Ot Z79.899 OTHER NURSING HOME (CURRENT) DRUG THERAPY 07/05/2016 JANE WELLS MD Ot D69.6 THROMBOCYTOPENIA, UNSPECIFIED 07/05/2016 JANE WELLS MD Ot E83.52 HYPERCALCEMIA 07/05/2016 JANE WELLS MD Ot M81.0 AGE-RELATED OSTEOPOROSIS W/O CURRENT PAT 07/05/2016 JANE WELLS MD Ot N18.9 CHRONIC KIDNEY DISEASE, UNSPECIFIED 07/05/2016 JANE WELLS MD Ot Z79.899 OTHER NURSING HOME (CURRENT) DRUG THERAPY 07/11/2016 JANE WELLS MD Ot D69.6 THROMBOCYTOPENIA, UNSPECIFIED 07/11/2016 JANE WELLS MD Ot E83.52 HYPERCALCEMIA 07/11/2016 JANE WELLS MD Ot M81.0 AGE-RELATED OSTEOPOROSIS W/O CURRENT PAT 07/11/2016 JANE WELLS MD Ot N18.9 CHRONIC KIDNEY DISEASE, UNSPECIFIED 07/11/2016 JANE WELLS MD Ot Z79.899 OTHER NURSING HOME (CURRENT) DRUG THERAPY 08/02/2016 Ot 793.81 MAMMOGRAPHIC [...] SCREEN MAMMO-MALIGN NEOPLASM OF [place] 08/02/2016 ANTOINE HURTADO MD Ot 789.00 ABDOMINAL PAIN, UNSPECIFIED SITE [...] Tran Ot 599.70 HEMATURIA, UNSPECIFIED 08/02/2016 ANTOINE HURTADO MD Ot D64.9 ANEMIA, UNSPECIFIED 08/02/2016 HENRIETTA STACY CORROSION CONTROL ENGINEER Ot 724.2 LUMBAGO 08/02/2016 HENRIETTA STACY CORROSION CONTROL ENGINEER Ot V76.12 OTH SCREEN MAMMO-MALIGN NEOPLASM OF [place] 08/02/2016 AUGUSTINE DUFFY PENAL OFFICER Ot R05 COUGH 08/02/2016 HENRIETTA STACY CORROSION CONTROL ENGINEER Ot R07.81 PLEURODYNIA 08/02/2016 JANE WELLS MD Ot D69.6 THROMBOCYTOPENIA, UNSPECIFIED 08/02/2016 JANE WELLS MD Ot E83.52 HYPERCALCEMIA 08/02/2016 JANE WELLS MD Ot M81.0 AGE-RELATED OSTEOPOROSIS W/O CURRENT PAT 08/02/2016 JANE WELLS MD Ot N18.9 CHRONIC KIDNEY DISEASE, UNSPECIFIED 08/02/2016 JANE WELLS MD Ot Z79.899 OTHER NURSING HOME (CURRENT) DRUG THERAPY 08/03/2016 ANTOINE HURTADO MD Ot Z12.31 ENCNTR SCREEN MAMMOGRAM FOR MALIGNANT NE 08/11/2016 ANTOINE HURTADO MD Ot Z12.31 ENCNTR SCREEN MAMMOGRAM FOR MALIGNANT NE 09/26/2016 JANE WELLS MD Ot D69.6 THROMBOCYTOPENIA, UNSPECIFIED 09/26/2016 JANE WELLS MD Ot E83.52 HYPERCALCEMIA 09/26/2016 JANE WELLS MD Ot M81.0 AGE-RELATED OSTEOPOROSIS W/O CURRENT PAT 09/26/2016 JANE WELLS MD Ot N18.9 CHRONIC KIDNEY DISEASE, UNSPECIFIED 09/26/2016 JANE WELLS MD Ot Z79.899 OTHER [facility] (CURRENT) DRUG THERAPY 09/28/2016 AARON GELLER, KASHMIR Browning Ot D64.9 ANEMIA, UNSPECIFIED 09/28/2016 KASHMIR WALKER MD, Ot F32.9 MAJOR DEPRESSIVE DISORDER, SINGLE EPISOD 09/28/2016 AARON GELLER, KASHMIR Browning Ot F41.9 ANXIETY DISORDER, UNSPECIFIED [...] J44.9 CHRONIC OBSTRUCTIVE PULMONARY DISEASE, U 09/28/2016 KASHMIR WALKER MD, Ot K21.9 GASTRO-ESOPHAGEAL REFLUX [...] G89.4 CHRONIC PAIN SYNDROME 09/30/2016 AARON GELLER, KASMHIR Browning Ot H40.9 UNSPECIFIED GLAUCOMA 09/30/2016 KASHMIR [...] 10/25/2016 JANE WELLS MD Ot Z79.899 OTHER NURSING HOME (CURRENT) DRUG THERAPY 10/26/2016 JANE WELLS MD Ot D69.6 THROMBOCYTOPENIA, UNSPECIFIED 10/26/2016 JANE WELLS MD Ot E83.52 HYPERCALCEMIA 10/26/2016 RUSSELL GELLER, JANE Richards Ot M81.0 AGE-RELATED OSTEOPOROSIS W/O CURRENT PAT 10/26/2016 RUSSELL GELLER, JANE Richards Ot N18.9 CHRONIC KIDNEY DISEASE, UNSPECIFIED 10/26/2016 RUSSELL GELLER, JANE Richards Ot Z79.899 OTHER NURSING HOME (CURRENT) DRUG THERAPY 12/01/2016 JANE WELLS MD Ot D69.6 THROMBOCYTOPENIA, UNSPECIFIED 12/01/2016 RUSSELL GELLER, JANE Richards Ot E83.52 HYPERCALCEMIA 12/01/2016 RUSSELL GELLER, JANE Richards Ot M81.0 AGE-RELATED OSTEOPOROSIS W/O CURRENT PAT 12/01/2016 JANE WELLS MD Ot N18.9 CHRONIC KIDNEY DISEASE, UNSPECIFIED 12/01/2016 RUSSELL GELLER, JANE Richards Ot Z79.899 OTHER NURSING HOME (CURRENT) DRUG THERAPY 12/07/2016 JANE WELLS MD Ot D69.6 THROMBOCYTOPENIA, UNSPECIFIED 12/07/2016 JANE WELLS MD Ot E83.52 HYPERCALCEMIA 12/07/2016 JANE WELLS MD Ot M81.0 AGE-RELATED OSTEOPOROSIS W/O CURRENT PAT 12/07/2016 JANE WELLS MD Ot N18.9 CHRONIC KIDNEY DISEASE, UNSPECIFIED 12/07/2016 JANE WELLS MD Ot Z79.899 OTHER [facility] (CURRENT) DRUG THERAPY 12/08/2016 JANE WELLS MD, Ot D69.6 THROMBOCYTOPENIA, UNSPECIFIED 12/08/2016 JANE WELLS MD Ot E83.52 HYPERCALCEMIA 12/08/2016 JANE WELLS MD Ot M81.0 AGE-RELATED OSTEOPOROSIS W/O CURRENT PAT 12/08/2016 JANE WELLS MD Ot N18.9 CHRONIC KIDNEY DISEASE, UNSPECIFIED 12/08/2016 JANE WELLS MD Ot Z79.899 OTHER [facility] S[facility]ER (CURRENT) DRUG THERAPY 01/23/2017 JANE WELLS MD Ot D69.6 THROMBOCYTOPENIA, UNSPECIFIED 01/23/2017 JANE WELLS MD Ot E83.52 HYPERCALCEMIA 01/23/2017 JANE WELLS MD Ot M81.0 AGE-RELATED OSTEOPOROSIS W/O CURRENT PAT 01/23/2017 JANE WELLS MD Ot N18.9 CHRONIC KIDNEY DISEASE, UNSPECIFIED 01/23/2017 JANE WELLS MD Ot Z79.899 OTHER [facility]ANK S[facility]ER (CURRENT) DRUG THERAPY 01/24/2017 JANE WELLS MD Ot D69.6 THROMBOCYTOPENIA, UNSPECIFIED 01/24/2017 RUSSELL GELLER, JANE Richards Ot E83.52 HYPERCALCEMIA 01/24/2017 RUSSELL GELLER, JANE Richards Ot M81.0 AGE-RELATED OSTEOPOROSIS W/O CURRENT PAT 01/24/2017 RUSSELL GELLER, JANE Richards Ot N18.9 CHRONIC KIDNEY DISEASE, UNSPECIFIED 01/24/2017 RUSSELL GELLER, JANE Richards Ot Z79.899 OTHER NURSING HOME (CURRENT) DRUG THERAPY 02/16/2017 AUGUSTINE DUFFY PENAL OFFICER Ot R31.9 HEMATURIA, UNSPECIFIED 03/03/2017 AUGUSTINE DUFFY PENAL OFFICER Ot R31.9 HEMATURIA, UNSPECIFIED 07/04/2017 DANIELA GELLER, JAZZ Ot D69.6 THROMBOCYTOPENIA, UNSPECIFIED 07/04/2017 JAZZ SUAREZ MD Ot E83.52 HYPERCALCEMIA 07/04/2017 JAZZ SUAREZ MD Ot M81.0 AGE-RELATED OSTEOPOROSIS W/O CURRENT PAT 07/04/2017 JAZZ SUAREZ MD Ot N18.9 CHRONIC KIDNEY DISEASE, UNSPECIFIED 07/04/2017 JAZZ SUAREZ MD Ot Z79.899 OTHER [facility] (CURRENT) DRUG THERAPY 07/08/2017 JAZZ SUAREZ MD Ot D69.6 THROMBOCYTOPENIA, UNSPECIFIED 07/08/2017 JAZZ SUAREZ MD Ot E83.52 HYPERCALCEMIA 07/08/2017 JAZZ SUAREZ MD Ot M81.0 AGE-RELATED OSTEOPOROSIS W/O CURRENT PAT 07/08/2017 JAZZ SUAREZ MD Ot N18.9 CHRONIC KIDNEY DISEASE, UNSPECIFIED 07/08/2017 JAZZ SUAREZ MD Ot Z79.899 OTHER [facility] (CURRENT) DRUG THERAPY 09/11/2017 DILMA RAHMAN MD [...] ARTIFICIAL KNEE JOINT 09/17/2017 ALYSSA BATISTALUIS Meeks PENAL OFFICER Ot Z96.652 PRESENCE OF LEFT ARTIFICIAL KNEE [...] R06.00 DYSPNEA, UNSPECIFIED 10/10/2017 ALYSSA BATISTALUIS Meeks PENAL OFFICER Ot Z04.3 ENCOUNTER FOR EXAM AND OBSERVATION FOLLO 10/10/2017 ATTILA BATISTA Jeanna RODRIGUEZ Ot 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 RIGHT ARTIFICIAL KNEE JOINT 10/10/2017 LESTER ALYSSAMERT RODRIGUEZ Ot Z96.652 PRESENCE OF LEFT ARTIFICIAL KNEE JOINT 10/16/2017 BATISTA ALYSSALUIS Meeks PENAL OFFICER Ot Z04.3 ENCOUNTER FOR EXAM AND OBSERVATION FOLLO 10/16/2017 LESTER ALYSSAMERT RODRIGUEZ Ot 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 RIGHT ARTIFICIAL KNEE JOINT 10/16/2017 LESTER ALYSSALUIS Meeks PENAL OFFICER Ot Z96.652 PRESENCE OF LEFT ARTIFICIAL KNEE JOINT 01/17/2018 Ot 272.4 HYPERLIPIDEMIA NEC/NOS 01/17/2018 Ot 401.9 HYPERTENSION NOS 01/17/2018 Ot 780.79 OTH MALAISE FATIGUE 01/17/2018 Ot V58.69 OTH MED,LT, CURRENT USE 01/17/2018 Ot 242.90 THYROTOX NOS NO CRISIS 01/17/2018 Ot 242.90 THYROTOX NOS NO CRISIS 01/17/2018 Ot 242.90 THYROTOX NOS NO CRISIS 01/17/2018 Ot 244.9 HYPOTHYROIDISM NOS 01/17/2018 ANTOINE HURTADO MD Ot V76.12 OTH SCREEN MAMMO-MALIGN NEOPLASM OF [place] 01/17/2018 ANTOINE HURTADO MD Ot 789.00 ABDOMINAL PAIN, UNSPECIFIED SITE 01/17/2018 ANTOINE HURTADO MD Ot 791.9 ABN URINE FINDINGS NEC [...] Ot V74.8 SCREEN-BACTERIAL DIS NEC 01/17/2018 ANTOINE HURTADO MD Ot 599.0 URIN TRACT INFECTION NOS [...] Tran Ot 599.70 HEMATURIA, UNSPECIFIED 01/17/2018 ANTOINE HURTADO MD Ot D64.9 ANEMIA, UNSPECIFIED 01/17/2018 HENRIETTA STACY CORROSION CONTROL ENGINEER Ot 724.2 LUMBAGO 01/17/2018 HENRIETTA STACY CORROSION CONTROL ENGINEER Ot V76.12 OTH SCREEN MAMMO-MALIGN NEOPLASM OF [place] 01/17/2018 AUGUSTINE DUFFY PENAL OFFICER Ot R05 COUGH 01/17/2018 HENRIETTA STACY CORROSION CONTROL ENGINEER Ot R07.81 PLEURODYNIA 01/17/2018 FRANKY GELLER, ANTOINE Tran Ot Z12.31 ENCNTR SCREEN MAMMOGRAM FOR MALIGNANT NE 01/17/2018 AUGUSTINE DUFFY PENAL OFFICER Ot R31.9 HEMATURIA, UNSPECIFIED 01/17/2018 JAZZ SUAREZ MD Ot D69.6 THROMBOCYTOPENIA, UNSPECIFIED 01/17/2018 DANIELA GELLER, JAZZ Ot E83.52 HYPERCALCEMIA 01/17/2018 JAZZ SUAREZ MD Ot M81.0 AGE-RELATED OSTEOPOROSIS W/O CURRENT PAT 01/17/2018 DANIELA GELLER, JAZZ Ot N18.9 CHRONIC KIDNEY DISEASE, UNSPECIFIED 01/17/2018 DANIELA GELLER, JAZZ Ot Z79.899 OTHER NURSING HOME (CURRENT) DRUG THERAPY 01/17/2018 JOSIAH GELLER, DILMA Raza Ot R10.9 UNSPECIFIED ABDOMINAL PAIN 01/17/2018 DILMA RAHMAN MD Ot R11.2 NAUSEA WITH VOMITING, UNSPECIFIED 01/17/2018 DILMA RAHMAN MD Ot Z12.31 ENCNTR SCREEN MAMMOGRAM FOR MALIGNANT NE 01/17/2018 ATTILA BATISTA APRN Ot Z04.3 ENCOUNTER FOR EXAM AND OBSERVATION FOLLO 01/17/2018 ATTILA BATISTA PENAL OFFICER Ot 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 RIGHT ARTIFICIAL KNEE JOINT 01/17/2018 ATTILA BATISTA APRN Ot Z96.652 PRESENCE OF LEFT ARTIFICIAL KNEE JOINT 01/17/2018 JOSIAH GELLER, DILMA Raza Ot R06.00 DYSPNEA, UNSPECIFIED 01/17/2018 SOFIA GIPSON APRN Ot F32.9 MAJOR DEPRESSIVE DISORDER, SINGLE EPISOD 01/17/2018 SOFIA GIPSON APRN Ot F41.9 ANXIETY DISORDER, UNSPECIFIED 01/17/2018 SOFIA GIPSON APRN Ot G47.9 SLEEP DISORDER, UNSPECIFIED 01/17/2018 SOFIA GIPSON APRN Ot I10 ESSENTIAL (PRIMARY) HYPERTENSION 01/17/2018 SOFIA GIPSON APRN Ot J43.9 EMPHYSEMA, UNSPECIFIED 01/17/2018 SOFIA GIPSON APRN Ot N39.0 URINARY TRACT INFECTION, SITE NOT SPECIF 01/17/2018 SOFIA GIPSON APRN Ot R29.6 REPEATED FALLS 01/17/2018 SOFIA GIPSON APRN Ot R40.2142 COMA SCALE, EYES OPEN, SPONTANEOUS, EMR 01/17/2018 SOFIA GIPSON APRN Ot R40.2252 COMA SCALE, BEST VERBAL RESPONSE, ORIENT 01/17/2018 SOFIA GIPSON APRN Ot R40.2362 COMA SCALE, BEST MOTOR RESPONSE, OBEYS C 01/17/2018 SOFIA GIPSON APRN Ot R42 DIZZINESS AND GIDDINESS 01/17/2018 SOFIA GIPSON APRN Ot Z80.0 FAMILY HISTORY OF MALIGNANT NEOPLASM OF 01/17/2018 SOFIA GIPSON APRN Ot Z87.440 PERSONAL HISTORY OF URINARY (TRACT) INFE 01/17/2018 SOFIA GIPSON APRN Ot Z87.81 PERSONAL HISTORY OF (HEALED) TRAUMATIC F 01/17/2018 SOFIA GIPSON APRN Ot Z88.5 ALLERGY STATUS TO NARCOTIC AGENT STATUS 01/17/2018 SOFIA GIPSON APRN Ot Z88.6 ALLERGY STATUS TO ANALGESIC AGENT STATUS 01/17/2018 SOFIA GIPSON APRN Ot Z88.8 ALLERGY STATUS TO OT DRUG/MEDS/BIOL SUB 01/17/2018 Ot 272.4 HYPERLIPIDEMIA NEC/NOS 01/17/2018 Ot 401.9 HYPERTENSION NOS 01/17/2018 Ot 780.79 OTH MALAISE FATIGUE 01/17/2018 Ot V58.69 OTH MED,LT, CURRENT USE 01/17/2018 Ot 242.90 THYROTOX NOS NO CRISIS 01/17/2018 Ot 242.90 THYROTOX NOS NO CRISIS 01/17/2018 Ot 242.90 THYROTOX NOS NO CRISIS 01/17/2018 Ot 244.9 HYPOTHYROIDISM NOS 01/17/2018 ANTOINE HURTADO MD Ot V76.12 OTH SCREEN MAMMO-MALIGN NEOPLASM OF [place] 01/17/2018 FRANKY MD, ANTOINE A Ot 789.00 ABDOMINAL PAIN, UNSPECIFIED SITE 01/17/2018 FRANKY GELLER, ANTOINE A Ot 791.9 ABN URINE FINDINGS NEC 01/17/2018 HENRIETTA STACY Ot V76.12 OTH SCREEN MAMMO-MALIGN NEOPLASM OF [place] 01/17/2018 AARON GELLER, KASHMIR Browning Ot V72.84 EXAM PRE-OPERATIVE NOS 01/17/2018 JANE WELLS MD Ot 244.9 HYPOTHYROIDISM NOS 01/17/2018 RUSSELL GELLER, JANE Richards Ot 287.5 THROMBOCYTOPENIA NOS 01/17/2018 RUSSELL GELLER, JANE Richards Ot 401.9 HYPERTENSION NOS 01/17/2018 JANE WELLS [...] Ot V43.65 KNEE JOINT REPLACEMENT STATUS 01/17/2018 AARON GELLER, KASHMIR Browning Ot V72.63 PRE-PROCEDURAL LABORATORY EXAMINATION 01/17/2018 AARON GELLER, KASHMIR Browning Ot V72.83 EXAM PRE-OPERATIVE NEC 01/17/2018 KASHMIR WALKER MD Ot V74.8 SCREEN-BACTERIAL DIS NEC 01/17/2018 FRANKY GELLER, ANTOINE Tran Ot 599.0 URIN TRACT INFECTION NOS 01/17/2018 JANE WELLS MD Ot 244.9 HYPOTHYROIDISM NOS 01/17/2018 JANE WELLS MD Ot 287.5 THROMBOCYTOPENIA NOS 01/17/2018 JANE WELLS MD Ot 401.9 HYPERTENSION NOS 01/17/2018 RUSSELL GELLER, JANE Richards Ot 496 CHR AIRWAY OBSTRUCT NEC 01/17/2018 JANE WELLS MD Ot 733.00 OSTEOPOROSIS NOS 01/17/2018 JANE WELLS MD Ot V58.69 OTH MED,LT,CURRENT USE 01/17/2018 Ot V72.84 EXAM PRE- OPERATIVE NOS 01/17/2018 CORY GELLER, MORALES A Ot 599.70 HEMATURIA, UNSPECIFIED 01/17/2018 ANTOINE HURTADO MD A Ot D64.9 ANEMIA, UNSPECIFIED 01/17/2018 HENRIETTA STACY CORROSION CONTROL ENGINEER Ot 724.2 LUMBAGO 01/17/2018 HENRIETTA STACY CORROSION CONTROL ENGINEER Ot V76.12 OTH SCREEN MAMMO-MALIGN NEOPLASM OF [place] 01/17/2018 AUGUSTINE DUFFY PENAL OFFICER Ot R05 COUGH 01/17/2018 HENRIETTA STACY CORROSION CONTROL ENGINEER Ot R07.81 PLEURODYNIA 01/17/2018 FRANKY GELLER, ANTOINE Tran Ot Z12.31 ENCNTR SCREEN MAMMOGRAM FOR MALIGNANT NE 01/17/2018 AUGUSTINE DUFFY PENAL OFFICER Ot R31.9 HEMATURIA, UNSPECIFIED 01/17/2018 DANIELA GELLER, JAZZ Ot D69.6 THROMBOCYTOPENIA, UNSPECIFIED 01/17/2018 DANIELA GELLER, JAZZ Ot E83.52 HYPERCALCEMIA 01/17/2018 DANIELA GELLER, JAZZ Ot M81.0 AGE-RELATED OSTEOPOROSIS W/O CURRENT PAT 01/17/2018 DANIELA GELLER, JAZZ Ot N18.9 CHRONIC KIDNEY DISEASE, UNSPECIFIED 01/17/2018 DANIELA GELLER, JAZZ Ot Z79.899 OTHER NURSING HOME (CURRENT) DRUG THERAPY 01/17/2018 JOSIAH GELLER, DILMA Raza Ot R10.9 UNSPECIFIED ABDOMINAL PAIN 01/17/2018 JOSIAH GELLER, DILMA Raza Ot R11.2 NAUSEA WITH VOMITING, UNSPECIFIED 01/17/2018 JOSIAH GELLER, DILMA Raza Ot Z12.31 ENCNTR SCREEN MAMMOGRAM FOR MALIGNANT NE 01/17/2018 ATTILA BATISTA PENAL OFFICER Ot Z04.3 ENCOUNTER FOR EXAM AND OBSERVATION FOLLO 01/17/2018 ATTILA BATISTA PENAL OFFICER Ot 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 RIGHT ARTIFICIAL KNEE JOINT 01/17/2018 ATTILA BATISTA PENAL OFFICER Ot Z96.652 PRESENCE OF LEFT ARTIFICIAL KNEE [...] Ot V58.69 OTH MED,LT,CURRENT USE 01/17/2018 KASHMIR WAKLER MD Ot 791.9 ABN URINE FINDINGS NEC 01/17/2018 AARON GELLER, KASHMIR Browning Ot 996.77 OTH COMPLICATIONS DUE TO INTERNAL JOINT 01/17/2018 AARON GELLER, KASHMIR Browning Ot V43.65 KNEE JOINT REPLACEMENT STATUS 01/17/2018 [...] JANE Richards Ot 401.9 HYPERTENSION NOS 01/17/2018 JANE WELLS MD Ot 496 CHR AIRWAY OBSTRUCT NEC 01/17/2018 JANE WELLS MD Ot 733.00 OSTEOPOROSIS NOS 01/17/2018 JANE WELLS MD Ot V58.69 OTH MED,LT,CURRENT USE 01/17/2018 Ot V72.84 EXAM PRE- OPERATIVE NOS 01/17/2018 CORY GELLER, MORALES Tran Ot 599.70 HEMATURIA, UNSPECIFIED 01/17/2018 ANTOINE HURTADO MD Ot D64.9 ANEMIA, UNSPECIFIED 01/17/2018 HENRIETTA STACY CORROSION CONTROL ENGINEER Ot 724.2 LUMBAGO 01/17/2018 HENRIETTA STACY CORROSION CONTROL ENGINEER Ot V76.12 OTH SCREEN MAMMO-MALIGN NEOPLASM OF [place] 01/17/2018 AUGUSTINE DUFFY PENAL OFFICER Ot R05 COUGH 01/17/2018 HENRIETTA STACY CORROSION CONTROL ENGINEER Ot R07.81 PLEURODYNIA 01/17/2018 ANTOINE HURTADO MD Ot Z12.31 ENCNTR SCREEN MAMMOGRAM FOR MALIGNANT NE 01/17/2018 AUGUSTINE DUFFY PENAL OFFICER Ot R31.9 HEMATURIA, UNSPECIFIED 01/17/2018 JAZZ SUAREZ MD Ot D69.6 THROMBOCYTOPENIA, UNSPECIFIED 01/17/2018 JAZZ SUAREZ MD Ot E83.52 HYPERCALCEMIA 01/17/2018 JAZZ SUAREZ MD Ot M81.0 AGE-RELATED OSTEOPOROSIS W/O CURRENT PAT 01/17/2018 JAZZ SUAREZ MD Ot N18.9 CHRONIC KIDNEY DISEASE, UNSPECIFIED 01/17/2018 JAZZ SUAREZ MD Ot Z79.899 OTHER [facility] (CURRENT) DRUG THERAPY 01/17/2018 JOSIAH GELLER, DILMA [...] WELLS MD Ot 401.9 HYPERTENSION NOS 01/17/2018 RUSSELL GELLER, JANE Richards Ot 496 CHR AIRWAY OBSTRUCT NEC 01/17/2018 RUSSELL GELLER, JANE Susie Ot 733.00 OSTEOPOROSIS NOS 01/17/2018 RUSSELL GELLER, JANE Richards Ot V58.69 OTH MED,LT,CURRENT USE 01/17/2018 Ot V72.84 EXAM PRE- OPERATIVE NOS 01/17/2018 CORY GELLER, MORALES Tran Ot 599.70 HEMATURIA, UNSPECIFIED 01/17/2018 ANTOINE HURTADO MD Ot D64.9 ANEMIA, UNSPECIFIED 01/17/2018 HENRIETTA STACY CORROSION CONTROL ENGINEER Ot 724.2 LUMBAGO 01/17/2018 HENRIETTA STACY CORROSION CONTROL ENGINEER Ot V76.12 OTH SCREEN MAMMO-MALIGN NEOPLASM OF [place] 01/17/2018 AUGUSTINE DUFFY PENAL OFFICER Ot R05 COUGH 01/17/2018 HENRIETTA STACYP Ot R07.81 PLEURODYNIA 01/17/2018 ANTOINE HURTADO MD Ot Z12.31 ENCNTR SCREEN MAMMOGRAM FOR MALIGNANT NE 01/17/2018 AUGUSTINE DUFFY PENAL OFFICER Ot R31.9 HEMATURIA, UNSPECIFIED 01/17/2018 JAZZ SUAREZ MD Ot D69.6 THROMBOCYTOPENIA, UNSPECIFIED 01/17/2018 JAZZ SUAREZ MD Ot E83.52 HYPERCALCEMIA 01/17/2018 JAZZ SUAREZ MD Ot M81.0 AGE-RELATED OSTEOPOROSIS W/O CURRENT PAT 01/17/2018 JAZZ SUAREZ MD Ot N18.9 CHRONIC KIDNEY DISEASE, UNSPECIFIED 01/17/2018 JAZZ SUAREZ MD Ot Z79.899 OTHER [facility] (CURRENT) DRUG THERAPY 01/17/2018 JOSIAH GELLER, DILMA Raza Ot R10.9 UNSPECIFIED ABDOMINAL PAIN 01/17/2018 DILMA RAHMAN MD Ot R11.2 NAUSEA WITH VOMITING, UNSPECIFIED 01/17/2018 JOSIAH GELLER, DILMA Raza Ot Z12.31 ENCNTR SCREEN MAMMOGRAM FOR MALIGNANT NE 01/17/2018 ATTILA BATISTA APRN Ot Z04.3 ENCOUNTER FOR EXAM AND OBSERVATION FOLLO 01/17/2018 ATTILA BATISTA APRN Ot 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 RIGHT ARTIFICIAL KNEE JOINT 01/17/2018 ATTILA BATISTA PENAL OFFICER Ot Z96.652 PRESENCE OF LEFT ARTIFICIAL KNEE [...] CRISIS 01/18/2018 Ot 244.9 HYPOTHYROIDISM NOS 01/18/2018 FRANKY GELLER, ANTOINE Tran Ot V76.12 OTH SCREEN MAMMO-MALIGN NEOPLASM OF [place] 01/18/2018 FRANKY GELLER, ANTOINE Tran Ot 789.00 ABDOMINAL PAIN, UNSPECIFIED SITE 01/18/2018 ANTOINE HURTADO MD Ot 791.9 ABN URINE FINDINGS NEC 01/18/2018 HENRIETTA STACY Ot V76.12 OTH SCREEN MAMMO-MALIGN NEOPLASM OF [place] 01/18/2018 AARON GELLER, KASHMIR Browning Ot V72.84 EXAM PRE-OPERATIVE NOS 01/18/2018 RUSSELL GELLER, JANE Richards Ot 244.9 HYPOTHYROIDISM NOS 01/18/2018 RUSSELL GELLER, JANE Richards Ot 287.5 THROMBOCYTOPENIA NOS 01/18/2018 RUSSELL GELLER, JANE Richards Ot 401.9 HYPERTENSION NOS 01/18/2018 RUSSELL GELLER, JANE Richards Ot 496 CHR AIRWAY OBSTRUCT NEC 01/18/2018 RUSSELL GELLER, JANE Richards Ot 733.00 OSTEOPOROSIS NOS 01/18/2018 RUSSELL GELLER, JANE Richards Ot V58.69 OTH MED,LT,CURRENT USE 01/18/2018 KASHMIR WALKER MD Ot 791.9 ABN URINE FINDINGS NEC 01/18/2018 KASHMIR WALKER MD Ot 996.77 OTH COMPLICATIONS DUE TO INTERNAL JOINT 01/18/2018 KASHMIR WALKER MD Ot V43.65 KNEE JOINT REPLACEMENT STATUS 01/18/2018 KASHMIR WALKER MD Ot V72.63 PRE-PROCEDURAL LABORATORY EXAMINATION 01/18/2018 KASHMIR WALKER MD Ot V72.83 EXAM PRE-OPERATIVE NEC 01/18/2018 KASHMIR WALKER MD Ot V74.8 SCREEN-BACTERIAL DIS NEC 01/18/2018 FRANKY GLELER, ANTOINE Tran Ot 599.0 URIN TRACT INFECTION NOS 01/18/2018 RUSESLL GELLER, JANE Richards Ot 244.9 HYPOTHYROIDISM NOS 01/18/2018 RUSSELL GELLER, JANE Richards Ot 287.5 THROMBOCYTOPENIA NOS 01/18/2018 RUSSELL GELLER, JANE Susie Ot 401.9 HYPERTENSION NOS 01/18/2018 RUSSELL GELLER, JANE Susie Ot 496 CHR AIRWAY OBSTRUCT NEC 01/18/2018 RUSSELL GELLER, JANE Susie Ot 733.00 OSTEOPOROSIS NOS 01/18/2018 RUSSELL GELLER, JANE Susie Ot V58.69 OTH MED,LT,CURRENT USE 01/18/2018 Ot V72.84 EXAM PRE- OPERATIVE NOS 01/18/2018 CORY GELLER, MORALES Tran Ot 599.70 HEMATURIA, UNSPECIFIED 01/18/2018 FRANKY GELLER, ANTOINE Tran Ot D64.9 ANEMIA, UNSPECIFIED 01/18/2018 HENRIETTA STACY CORROSION CONTROL ENGINEER Ot 724.2 LUMBAGO 01/18/2018 HENRIETTA STACY CORROSION CONTROL ENGINEER Ot V76.12 OTH SCREEN MAMMO-MALIGN NEOPLASM OF [place] 01/18/2018 AUGUSTINE DUFFY PENAL OFFICER Ot R05 COUGH 01/18/2018 HERNIETTA STACY CORROSION CONTROL ENGINEER Ot R07.81 PLEURODYNIA 01/18/2018 FRANKY GELLER, ANTOINE Tran Ot Z12.31 ENCNTR SCREEN MAMMOGRAM FOR MALIGNANT NE 01/18/2018 AUGUSTINE DUFFY PENAL OFFICER Ot R31.9 HEMATURIA, UNSPECIFIED 01/18/2018 JAZZ SUAREZ MD Ot D69.6 THROMBOCYTOPENIA, UNSPECIFIED 01/18/2018 JAZZ SUAREZ MD Ot E83.52 HYPERCALCEMIA 01/18/2018 JAZZ SUAREZ MD Ot M81.0 AGE-RELATED OSTEOPOROSIS W/O CURRENT PAT 01/18/2018 JAZZ SUAREZ MD Ot N18.9 CHRONIC KIDNEY DISEASE, UNSPECIFIED 01/18/2018 JAZZ SUAREZ MD Ot Z79.899 OTHER NURSING HOME (CURRENT) DRUG THERAPY 01/18/2018 JOSIAH GELLER, DILMA Raza Ot R10.9 UNSPECIFIED ABDOMINAL PAIN 01/18/2018 JOSIAH GELLER, DILMA Raza Ot R11.2 NAUSEA WITH VOMITING, UNSPECIFIED 01/18/2018 JOSIAH GELLER, DILMA Raza Ot Z12.31 ENCNTR SCREEN MAMMOGRAM FOR MALIGNANT NE 01/18/2018 LESTER ATTILA Meeks APRN Ot Z04.3 ENCOUNTER FOR EXAM AND OBSERVATION FOLLO 01/18/2018 BATISTA ATTILA Meeks APRN Ot 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 RIGHT ARTIFICIAL KNEE JOINT 01/18/2018 LESTER ATTILA Meeks APRN Ot Z96.652 PRESENCE OF LEFT ARTIFICIAL KNEE JOINT 01/18/2018 JOSIAH GELLER, DILMA Raza Ot R06.00 DYSPNEA, UNSPECIFIED 01/19/2018 SOFIA GIPSON APRN Ot F32.9 MAJOR DEPRESSIVE DISORDER, SINGLE EPISOD 01/19/2018 SOFIA GIPSON APRN Ot F41.9 ANXIETY DISORDER, UNSPECIFIED 01/19/2018 SOFIA GIPSON APRN Ot G47.9 SLEEP DISORDER, UNSPECIFIED 01/19/2018 SOFIA GIPSON APRN Ot I10 ESSENTIAL (PRIMARY) HYPERTENSION 01/19/2018 SOFIA GIPSON APRN, Ot J43.9 EMPHYSEMA, UNSPECIFIED 01/19/2018 SOFIA GIPSON APRN Ot N39.0 URINARY TRACT INFECTION, SITE NOT SPECIF 01/19/2018 SOFIA GIPSON APRN Ot R29.6 REPEATED FALLS 01/19/2018 SOFIA GIPSON APRN Ot R40.2142 COMA SCALE, EYES OPEN, SPONTANEOUS, EMR 01/19/2018 SOFIA GIPSON APRN Ot R40.2252 COMA SCALE, BEST VERBAL RESPONSE, ORIENT 01/19/2018 SOFIA GIPSON APRN Ot R40.2362 COMA SCALE, BEST MOTOR RESPONSE, OBEYS C 01/19/2018 SOFIA GIPSON APRN Ot R42 DIZZINESS AND GIDDINESS 01/19/2018 SOFIA GIPSON APRN Ot Z80.0 FAMILY HISTORY OF MALIGNANT NEOPLASM OF 01/19/2018 SOFIA GIPSON APRN Ot Z87.440 PERSONAL HISTORY OF URINARY (TRACT) INFE 01/19/2018 SOFIA GIPSON APRN Ot Z87.81 PERSONAL HISTORY OF (HEALED) TRAUMATIC F 01/19/2018 SOFIA GIPSON APRN Ot Z88.5 ALLERGY STATUS TO NARCOTIC AGENT STATUS 01/19/2018 SOFIA GIPSON APRN Ot Z88.6 ALLERGY STATUS TO ANALGESIC AGENT STATUS 01/19/2018 SOFIA GIPSON APRN Ot Z88.8 ALLERGY STATUS TO OTH DRUG/MEDS/BIOL SUB 02/12/2018 KARAN VIVEROS MD Ot D69.6 THROMBOCYTOPENIA, UNSPECIFIED 02/12/2018 KARAN VIVEROS MD Ot E66.9 OBESITY, UNSPECIFIED 02/12/2018 KARAN VIVEROS MD Ot F32.9 MAJOR DEPRESSIVE DISORDER, SINGLE EPISOD 02/12/2018 KARAN VIVEROS MD Ot I10 ESSENTIAL (PRIMARY) HYPERTENSION 02/12/2018 KARAN VIVEROS MD Ot J44.9 CHRONIC OBSTRUCTIVE PULMONARY DISEASE, U 02/12/2018 KARAN VIVEROS MD Ot R00.1 BRADYCARDIA, UNSPECIFIED 02/27/2018 KARAN VIVEROS MD Ot D69.6 THROMBOCYTOPENIA, UNSPECIFIED 02/27/2018 KARAN VIVEROS MD Ot E66.9 OBESITY, UNSPECIFIED 02/27/2018 KARAN VIVEROS MD Ot F32.9 MAJOR DEPRESSIVE DISORDER, SINGLE EPISOD 02/27/2018 KARAN VIVEROS MD Ot I07.1 RHEUMATIC TRICUSPID INSUFFICIENCY 02/27/2018 KARAN VIVEROS MD Ot I10 ESSENTIAL (PRIMARY) HYPERTENSION 02/27/2018 KARAN VIVEROS MD Ot J44.9 CHRONIC OBSTRUCTIVE PULMONARY DISEASE, U 02/27/2018 KARAN VIVEROS MD Ot R00.1 BRADYCARDIA, UNSPECIFIED 03/03/2018 MAURICIO GUSMAN MD Ot F32.9 MAJOR DEPRESSIVE DISORDER, SINGLE EPISOD 03/03/2018 MAURICIO GUSMAN MD Ot F41.9 ANXIETY DISORDER, UNSPECIFIED 03/03/2018 MAURICIO GUSMAN MD Ot H40.9 UNSPECIFIED GLAUCOMA 03/03/2018 MAURICIO GUSMAN MD Ot I10 ESSENTIAL (PRIMARY) HYPERTENSION 03/03/2018 MAURICIO GUSMAN MD Ot K21.9 GASTRO-ESOPHAGEAL REFLUX DISEASE WITHOUT 03/03/2018 MAURICIO GUSMAN MD Ot K44.9 DIAPHRAGMATIC HERNIA WITHOUT OBSTRUCTION 03/03/2018 MAURICIO GUSMAN MD Ot M81.0 AGE-RELATED OSTEOPOROSIS W/O CURRENT PAT 03/03/2018 MAURICIO GUSMAN MD Ot N39.0 URINARY TRACT INFECTION, SITE NOT SPECIF 03/03/2018 MAURICIO GUSMAN MD Ot R41.0 DISORIENTATION, UNSPECIFIED 03/03/2018 MAURICIO GUSMAN MD Ot Z96.641 PRESENCE OF RIGHT ARTIFICIAL HIP JOINT 03/03/2018 MAURICIO GUSMAN MD Ot Z96.653 PRESENCE OF ARTIFICIAL KNEE JOINT, BILAT 03/03/2018 MAURICIO GUSMAN MD Ot F32.9 MAJOR DEPRESSIVE DISORDER, SINGLE EPISOD 03/03/2018 MAURICIO UGSMAN MD Ot F41.9 ANXIETY DISORDER, UNSPECIFIED 03/03/2018 MAURICIO GUSMAN MD Ot H40.9 UNSPECIFIED GLAUCOMA 03/03/2018 MAURICIO GUSMAN MD Ot I10 ESSENTIAL (PRIMARY) HYPERTENSION 03/03/2018 MAURICIO GUSMAN MD Ot K21.9 GASTRO-ESOPHAGEAL REFLUX DISEASE WITHOUT 03/03/2018 MAURICIO GUSMAN MD Ot K44.9 DIAPHRAGMATIC HERNIA WITHOUT OBSTRUCTION 03/03/2018 MAURICIO GUSMAN MD Ot M81.0 AGE-RELATED OSTEOPOROSIS W/O CURRENT PAT 03/03/2018 MAURICIO GUSMAN MD Ot N39.0 URINARY TRACT INFECTION, SITE NOT SPECIF 03/03/2018 MAURICIO GUSMAN MD Ot R41.0 DISORIENTATION, UNSPECIFIED 03/03/2018 MAURICIO GUSMAN MD Ot Z96.641 PRESENCE OF RIGHT ARTIFICIAL HIP JOINT 03/03/2018 MAURICIO GUSMAN MD Ot Z96.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 PRESENCE OF ARTIFICIAL KNEE JOINT, BILAT 03/07/2018 KARAN VIVEROS MD Ot D69.6 THROMBOCYTOPENIA, UNSPECIFIED 03/07/2018 KARAN VIVEROS MD Ot E66.9 OBESITY, UNSPECIFIED 03/07/2018 KARAN VIVEROS MD Ot F32.9 MAJOR DEPRESSIVE DISORDER, SINGLE EPISOD 03/07/2018 KARAN VIVEROS MD Ot I10 ESSENTIAL (PRIMARY) HYPERTENSION 03/07/2018 KARAN VIVEROS MD Ot J44.9 CHRONIC OBSTRUCTIVE PULMONARY DISEASE, U 03/07/2018 KARAN VIVEROS MD Ot R00.1 BRADYCARDIA, UNSPECIFIED 03/12/2018 KARAN VIVEROS MD Ot D69.6 THROMBOCYTOPENIA, UNSPECIFIED 03/12/2018 KARAN VIVEROS MD Ot E66.9 OBESITY, UNSPECIFIED 03/12/2018 KARAN VIVEROS MD Ot F32.9 MAJOR DEPRESSIVE DISORDER, SINGLE EPISOD 03/12/2018 FELICE MD, BASHAR J Ot I10 ESSENTIAL (PRIMARY) HYPERTENSION 03/12/2018 KARAN VIVEROS MD Ot J44.9 CHRONIC OBSTRUCTIVE PULMONARY DISEASE, U 03/12/2018 KARAN VIVEROS MD Ot R00.1 BRADYCARDIA, UNSPECIFIED 03/20/2018 KARAN VIVEROS MD Ot D69.6 THROMBOCYTOPENIA, UNSPECIFIED 03/20/2018 KARAN VIVEROS MD Ot E66.9 OBESITY, UNSPECIFIED 03/20/2018 KARAN VIVEROS MD Ot F32.9 MAJOR DEPRESSIVE DISORDER, SINGLE EPISOD 03/20/2018 KARAN VIVEROS MD J Ot I07.1 RHEUMATIC TRICUSPID INSUFFICIENCY 03/20/2018 KARAN VIVEROS MD J Ot I10 ESSENTIAL (PRIMARY) HYPERTENSION 03/20/2018 KARAN VIVEROS MD Ot J44.9 CHRONIC OBSTRUCTIVE PULMONARY DISEASE, U 03/20/2018 KARAN VIVEROS MD J Ot R00.1 BRADYCARDIA, UNSPECIFIED 03/23/2018 KARAN VIVEROS MD Ot D69.6 THROMBOCYTOPENIA, UNSPECIFIED 03/23/2018 KARAN VIVEROS MD Ot E66.9 OBESITY, UNSPECIFIED 03/23/2018 KARAN VIVEROS MD Ot F32.9 MAJOR DEPRESSIVE DISORDER, SINGLE EPISOD 03/23/2018 KARAN VIVEROS MD Ot I07.1 RHEUMATIC TRICUSPID INSUFFICIENCY 03/23/2018 KARAN VIVEROS MD Ot I10 ESSENTIAL (PRIMARY) HYPERTENSION 03/23/2018 KARAN VIVEROS MD Ot J44.9 CHRONIC OBSTRUCTIVE PULMONARY DISEASE, U 03/23/2018 KARAN VIVEROS MD Ot R00.1 BRADYCARDIA, UNSPECIFIED 04/01/2018 JAZZ SUAREZ MD Ot D69.6 THROMBOCYTOPENIA, UNSPECIFIED 04/01/2018 JAZZ SUAREZ MD Ot E83.52 HYPERCALCEMIA 04/01/2018 JAZZ SUAREZ MD Ot M81.0 AGE-RELATED OSTEOPOROSIS W/O CURRENT PAT 04/01/2018 JAZZ SUAREZ MD Ot N18.9 CHRONIC KIDNEY DISEASE, UNSPECIFIED 04/01/2018 JAZZ SUAREZ MD Ot Z79.899 OTHER NURSING HOME (CURRENT) DRUG THERAPY 04/02/2018 JAZZ SUAREZ MD Ot D69.6 THROMBOCYTOPENIA, UNSPECIFIED 04/02/2018 JAZZ SUAREZ MD Ot E83.52 HYPERCALCEMIA 04/02/2018 DANIELA GELLER, JAZZ Ot M81.0 AGE-RELATED OSTEOPOROSIS W/O CURRENT PAT 04/02/2018 DANIELA GELLER, JAZZ Ot N18.9 CHRONIC KIDNEY DISEASE, UNSPECIFIED 04/02/2018 DANIELA GELLER, JAZZ Ot Z79.899 OTHER [facility] (CURRENT) DRUG THERAPY 05/01/2018 NINI GELLER, MARBELLA Mathur Ot Z01.818 ENCOUNTER FOR OTHER PREPROCEDURAL EXAMIN 05/01/2018 NINI GELLER, MARBELLA Mathur Ot Z01.818 ENCOUNTER FOR OTHER PREPROCEDURAL EXAMIN 05/02/2018 NINI GELLER, MARBELLA Mathur Ot Z01.818 ENCOUNTER FOR OTHER PREPROCEDURAL EXAMIN 05/04/2018 FRANKY GELLER, ANTOINE Tran Ot V76.12 OTH SCREEN MAMMO-MALIGN NEOPLASM OF [place] 05/04/2018 FRANKY GELLER, ANTOINE Tran Ot 789.00 ABDOMINAL PAIN, UNSPECIFIED SITE 05/04/2018 FRANKY GELLER, ANTOINE Tran Ot 791.9 ABN URINE FINDINGS NEC 05/04/2018 HENRIETTA STACY Ot V76.12 OTH SCREEN MAMMO-MALIGN NEOPLASM OF [place] 05/04/2018 AARON GELLER, KASHMIR Browning Ot V72.84 EXAM PRE-OPERATIVE NOS 05/04/2018 RUSSELL GELLER, JANE Richards Ot 244.9 HYPOTHYROIDISM NOS 05/04/2018 RUSSELL GELLER, JANE Richards Ot 287.5 THROMBOCYTOPENIA NOS 05/04/2018 RUSSELL GELLER, JANE Richards Ot 401.9 HYPERTENSION NOS 05/04/2018 RUSSELL GELLER, JANE Richards Ot 496 CHR AIRWAY OBSTRUCT NEC 05/04/2018 RUSSELL GELLER, JANE Richards Ot 733.00 OSTEOPOROSIS NOS 05/04/2018 RUSSELL GELLER, JANE Richards Ot V58.69 OTH MED,LT,CURRENT USE 05/04/2018 AARON GELLER, KASHMIR Browning Ot 791.9 ABN URINE FINDINGS NEC 05/04/2018 AARON GELLER, KASHMIR Browning Ot 996.77 OTH COMPLICATIONS DUE TO INTERNAL JOINT 05/04/2018 AARON GELLER, KASHMIR Browning Ot V43.65 KNEE JOINT REPLACEMENT STATUS 05/04/2018 AARON GELLER, KASHMIR Browning Ot V72.63 PRE-PROCEDURAL LABORATORY EXAMINATION 05/04/2018 AARON GELLER, KASHMIR Browning Ot V72.83 EXAM PRE-OPERATIVE NEC 05/04/2018 AARON GELLER, KASHMIR Browning Ot V74.8 SCREEN-BACTERIAL DIS NEC 05/04/2018 FRANKY GELLER, ANTOINE Tran Ot 599.0 URIN TRACT INFECTION NOS 05/04/2018 RUSSELL GELLER, JANE Richards Ot 244.9 HYPOTHYROIDISM NOS 05/04/2018 RUSSELL GELLER, JANE Richards Ot 287.5 THROMBOCYTOPENIA NOS 05/04/2018 RUSSELL GELLER, JANE Richards Ot 401.9 HYPERTENSION NOS 05/04/2018 RUSSELL GELLER, JANE Richards Ot 496 CHR AIRWAY OBSTRUCT NEC 05/04/2018 RUSSELL GELLER, JANE Richards Ot 733.00 OSTEOPOROSIS NOS 05/04/2018 RUSSELL GELLER, JANE Susie Ot V58.69 OTH MED,LT,CURRENT USE 05/04/2018 Ot V72.84 EXAM PRE- OPERATIVE NOS 05/04/2018 CORY GELLER, MORALES Tran Ot 599.70 HEMATURIA, UNSPECIFIED 05/04/2018 FRANKY GELLER, ANTOINE rTan Ot D64.9 ANEMIA, UNSPECIFIED 05/04/2018 HENRIETTA STACY CORROSION CONTROL ENGINEER Ot 724.2 LUMBAGO 05/04/2018 HENRIETTA STACY CORROSION CONTROL ENGINEER Ot V76.12 OTH SCREEN MAMMO-MALIGN NEOPLASM OF [place] 05/04/2018 AUGUSTINE DUFFY PENAL OFFICER Ot R05 COUGH 05/04/2018 HENRIETTA STACY CORROSION CONTROL ENGINEER Ot R07.81 PLEURODYNIA 05/04/2018 FRANKY GELLER, ANTOINE Tran Ot Z12.31 ENCNTR SCREEN MAMMOGRAM FOR MALIGNANT NE 05/04/2018 AUGUSTINE DUFFY PENAL OFFICER Ot R31.9 HEMATURIA, UNSPECIFIED 05/04/2018 JOSIAH GELLER, DILMA Raza Ot R10.9 UNSPECIFIED ABDOMINAL PAIN 05/04/2018 JOSIAH GELLER, DILMA Raza Ot R11.2 NAUSEA WITH VOMITING, UNSPECIFIED 05/04/2018 JOISAH GELLER, DILMA Raza Ot Z12.31 ENCNTR SCREEN MAMMOGRAM FOR MALIGNANT NE 05/04/2018 ATTILA BATISTA PENAL OFFICER Ot Z04.3 ENCOUNTER FOR EXAM AND OBSERVATION FOLLO 05/04/2018 ATTILA BATISTA PENAL OFFICER Ot 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 RIGHT ARTIFICIAL KNEE JOINT 05/04/2018 ATTILA BATISTA PENAL OFFICER Ot Z96.652 PRESENCE OF LEFT ARTIFICIAL KNEE JOINT 05/04/2018 JOSIAH GELLER, DILMA Raza Ot R06.00 DYSPNEA, UNSPECIFIED 05/04/2018 KARAN VIVEROS MD Ot D69.6 THROMBOCYTOPENIA, UNSPECIFIED 05/04/2018 KARAN VIVEROS MD Ot E66.9 OBESITY, UNSPECIFIED 05/04/2018 KARAN VIVEROS MD Ot F32.9 MAJOR DEPRESSIVE DISORDER, SINGLE EPISOD 05/04/2018 KARAN VIVEROS MD Ot I10 ESSENTIAL (PRIMARY) HYPERTENSION 05/04/2018 KARAN VIVEROS MD Ot J44.9 CHRONIC OBSTRUCTIVE PULMONARY DISEASE, U 05/04/2018 KARAN VIVEROS MD Ot R00.1 BRADYCARDIA, UNSPECIFIED 05/04/2018 KARAN VIVEROS MD Ot D69.6 THROMBOCYTOPENIA, UNSPECIFIED 05/04/2018 KARAN VIVEROS MD Ot E66.9 OBESITY, UNSPECIFIED 05/04/2018 KARAN VIVEROS MD Ot F32.9 MAJOR DEPRESSIVE DISORDER, SINGLE EPISOD 05/04/2018 KARAN VIVEROS MD Ot I07.1 RHEUMATIC TRICUSPID INSUFFICIENCY 05/04/2018 KARAN VIVEROS MD Ot I10 ESSENTIAL (PRIMARY) HYPERTENSION 05/04/2018 KARAN VIVEROS MD Ot J44.9 CHRONIC OBSTRUCTIVE PULMONARY DISEASE, U 05/04/2018 KARAN VIVEROS MD Ot R00.1 BRADYCARDIA, UNSPECIFIED 05/04/2018 JAZZ SUAREZ MD Ot D69.6 THROMBOCYTOPENIA, UNSPECIFIED 05/04/2018 JAZZ SUAREZ MD Ot E83.52 HYPERCALCEMIA 05/04/2018 JAZZ SUAREZ MD Ot M81.0 AGE-RELATED OSTEOPOROSIS W/O CURRENT PAT 05/04/2018 JAZZ SUAREZ MD Ot N18.9 CHRONIC KIDNEY DISEASE, UNSPECIFIED 05/04/2018 JAZZ SUAREZ MD Ot Z79.899 OTHER [facility] (CURRENT) DRUG THERAPY 05/10/2018 MAURICIO GUSMAN MD Ot E86.0 DEHYDRATION 05/10/2018 MAURICIO GUSMAN MD Ot E87.0 HYPEROSMOLALITY AND HYPERNATREMIA 05/10/2018 MAURICIO GUSMAN MD Ot E87.6 HYPOKALEMIA 05/10/2018 MAURICIO GUSMAN MD Ot F32.9 MAJOR DEPRESSIVE DISORDER, SINGLE EPISOD 05/10/2018 MAURICIO GUSMAN MD Ot F41.9 ANXIETY DISORDER, UNSPECIFIED 05/10/2018 MAURICIO GUSMAN MD Ot G47.9 SLEEP DISORDER, UNSPECIFIED 05/10/2018 MAURICIO GUSMAN MD Ot H40.9 UNSPECIFIED GLAUCOMA 05/10/2018 MAURICIO GUSMAN MD Ot H91.90 UNSPECIFIED HEARING LOSS, UNSPECIFIED EA 05/10/2018 MAURICIO GUSMAN MD Ot I12.9 HYPERTENSIVE CHRONIC KIDNEY DISEASE W ST 05/10/2018 MAURICIO GUSMAN MD Ot J43.9 EMPHYSEMA, UNSPECIFIED 05/10/2018 MAURICIO GUSMAN MD Ot K21.9 GASTRO-ESOPHAGEAL REFLUX DISEASE WITHOUT 05/10/2018 MAURICIO GUSMAN MD Ot M19.91 PRIMARY OSTEOARTHRITIS, UNSPECIFIED SITE 05/10/2018 MAURICIO GUSMAN MD Ot M81.0 AGE-RELATED OSTEOPOROSIS W/O CURRENT PAT 05/10/2018 MAURICIO GUSMAN MD Ot N17.9 ACUTE KIDNEY FAILURE, UNSPECIFIED 05/10/2018 MAURICIO GUSMAN MD Ot N18.9 CHRONIC KIDNEY DISEASE, UNSPECIFIED 05/10/2018 MAURICIO GUSMAN MD Ot R29.703 NIHSS SCORE 3 05/10/2018 MAURICIO GUSMAN MD Ot R41.82 ALTERED MENTAL STATUS, UNSPECIFIED 05/10/2018 MAURICIO GUSMAN MD Ot R90.89 OTH ABNORMAL FINDINGS ON DIAGNOSTIC IMAG 05/10/2018 MAURICIO GUSMAN MD Ot T47.4X5A ADVERSE EFFECT OF OTHER LAXATIVES, INITI 05/10/2018 MAURICIO GUSMAN MD Ot Z66 DO NOT RESUSCITATE 05/10/2018 MAURICIO GUSMAN MD Ot Z80.0 FAMILY HISTORY OF MALIGNANT NEOPLASM OF 05/10/2018 MAURICIO GUSMAN MD Ot Z90.49 ACQUIRED ABSENCE OF OTHER SPECIFIED PART 05/10/2018 MAURICIO GUSMAN MD Ot Z96.641 PRESENCE OF RIGHT ARTIFICIAL HIP JOINT 05/10/2018 MAURICIO GUSMAN MD Ot Z96.653 PRESENCE OF ARTIFICIAL KNEE JOINT, BILAT 10/12/2018 JAZZ SUAREZ MD Ot D69.6 THROMBOCYTOPENIA, UNSPECIFIED 10/12/2018 JAZZ SUAREZ MD Ot E83.52 HYPERCALCEMIA 10/12/2018 JAZZ SUAREZ MD Ot M81.0 AGE-RELATED OSTEOPOROSIS W/O CURRENT PAT 10/12/2018 JAZZ SUAREZ MD Ot N18.9 CHRONIC KIDNEY DISEASE, UNSPECIFIED 10/12/2018 JAZZ SUAREZ MD Ot Z79.899 OTHER NURSING HOME (CURRENT) DRUG THERAPY 10/15/2018 RIZWAN VIDAL MD, Ot B34.9 VIRAL INFECTION, UNSPECIFIED 10/15/2018 RIZWAN VIDAL MD, Ot F32.9 MAJOR DEPRESSIVE DISORDER, SINGLE EPISOD 10/15/2018 YOUNG GELLER, RIZWAN Mathur Ot F41.9 ANXIETY DISORDER, UNSPECIFIED 10/15/2018 RIZWAN VIDAL MD, Ot G47.9 SLEEP DISORDER, UNSPECIFIED 10/15/2018 RIZWAN VIDAL MD, Ot H40.9 UNSPECIFIED GLAUCOMA 10/15/2018 RIZWAN VIDAL MD, Ot I12.9 HYPERTENSIVE CHRONIC KIDNEY DISEASE W ST 10/15/2018 RIZWAN VIDAL MD Ot I82.412 ACUTE EMBOLISM AND THROMBOSIS OF LEFT FE 10/15/2018 RIZWAN VIDAL MD Ot I95.9 HYPOTENSION, UNSPECIFIED 10/15/2018 RIZWAN VIDAL MD, Ot J43.9 EMPHYSEMA, UNSPECIFIED 10/15/2018 RIZWAN VIDAL MD, Ot K21.9 GASTRO-ESOPHAGEAL REFLUX DISEASE WITHOUT 10/15/2018 RIZWAN VIDAL MD, Ot M19.91 PRIMARY OSTEOARTHRITIS, UNSPECIFIED SITE 10/15/2018 RIZWAN VIDAL MD, Ot M81.0 AGE-RELATED OSTEOPOROSIS W/O CURRENT PAT 10/15/2018 RIZWAN VIDAL MD, Ot N18.9 CHRONIC KIDNEY DISEASE, UNSPECIFIED 10/15/2018 RIZWAN VIDAL MD Ot R09.02 HYPOXEMIA 10/15/2018 RIZWAN VIDAL MD, Ot R40.2410 CAROLA COMA SCALE SCORE 13-15, UNSPECIF 10/15/2018 RIZWAN VIDAL MD, Ot R79.1 ABNORMAL COAGULATION PROFILE 10/15/2018 RIZWAN VIDAL MD, Ot S80.01XA CONTUSION OF RIGHT KNEE, INITIAL ENCOUNT 10/15/2018 RIZWAN VIDAL MD, Ot S80.02XA CONTUSION OF LEFT KNEE, INITIAL ENCOUNTE 10/15/2018 RIZWAN VIDAL MD, Ot W06.XXXA FALL FROM BED, INITIAL ENCOUNTER 10/15/2018 RIZWAN VIDAL MD, Ot Z90.49 ACQUIRED ABSENCE OF OTHER SPECIFIED PART 10/15/2018 RIZWAN VIDAL MD, Ot Z96.641 PRESENCE OF RIGHT ARTIFICIAL HIP JOINT 10/15/2018 RIZWAN VIDAL MD, Ot Z96.653 PRESENCE OF ARTIFICIAL KNEE JOINT, BILAT 10/15/2018 RIZWAN VIDAL MD, Ot Z99.81 DEPENDENCE ON SUPPLEMENTAL OXYGEN Procedures Code Description Performed By Performed On 78.65 REMOVE INT FIX DEV-FEMUR 08/21/2014 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 08/21/2014 [id number] REPOSITION L FEMUR SHAFT WITH INTRAMED F 08/07/2015 [id number] REPOSITION RIGHT LOWER FEMUR WITH INT FI [...] resistant Staphylococcus aureus (MRSA) screening culture NEG NR Whole blood hemoglobin and hematocrit panel - [...] CELLS LEUKO REDUCED AS1 TRANSFUSED 09/27/16 0950 NRG Blood type T Indirect antibody screen panel - 09/27/16 08:33 ABO+Rh group AP NRG Transfusion band number [id number] NRG Blood group antibody screen NEGATIVE NRG Automated blood complete blood count (hemogram) panel [...] culture - 02/10/17 18:35 Bacterial urine culture [id number] NRG COLONY COUNT >100,000/ML NRG FTX;REPORTABLE SENSITIVITY [...] susceptibility test by minimum inhibitory concentration - NR Complete urinalysis with reflex to culture - [...] urinalysis with reflex to culture YES NRG Bacterial urine culture - 01/17/18 20:05 Bacterial urine culture [id number] NRG COLONY COUNT >100,000/ML NRG FTX;REPORTABLE SENSITIVITY REPORTED AT 1757, 01-18-18 NR URINE CULTURE RESULTS PLUS NR Bacterial susceptibility panel - 01/17/18 20:05 Gentamicin susceptibility test by minimum inhibitory concentration < = NRG Trimethoprim/sulfamethoxazole susceptibility test by minimum inhibitoryconcentration S NRG Ampicillin susceptibility test by minimum inhibitory concentration 8 NRG Tobramycin susceptibility test by minimum inhibitory concentration < = NRG Cefazolin susceptibility test by minimum inhibitory concentration < = NRG Ceftriaxone susceptibility test by minimum inhibitory concentration <= NRG Ampicillin/sulbactam susceptibility test by minimum inhibitory concentration S NRG Piperacillin/tazobactam susceptibility test by minimum inhibitory concentration S NRG Ciprofloxacin susceptibility test by minimum inhibitory concentration <= NRG Meropenem susceptibility test by minimum inhibitory concentration < = NRG Nitrofurantoin susceptibility test by minimum inhibitory concentration <= NRG Aztreonam susceptibility test by minimum inhibitory concentration < = NRG Extended spectrum beta lactamase (ESBL) producing bacteria susceptibility test by minimum inhibitory concentration - NRG Complete blood count (CBC) with automated [...] plasma albumin measurement (mass/volume) 3.6 g/dL 3.2-4.5 Complete urinalysis with reflex to culture - 03/02/18 16:06 Urine color determination YELLOW NRG Urine clarity determination CLEAR NRG Urine pH measurement by test strip 7 5-9 Specific gravity of urine by test strip 1.010 1.016- 1.022 Urine protein assay by test strip, semi-quantitative NEGATIVE NEGATIVE Urine glucose detection by automated test strip NEGATIVE NEGATIVE Erythrocytes detection in urine sediment by light microscopy 2+ NEGATIVE Urine ketones detection by automated test [...] urine sediment by light microscopy FEW NRG Squamous epithelial cells detection in urine sediment by light microscopy 5-10 NRG Crystals detection in urine sediment by light microscopy NONE NRG Casts detection in urine sediment by light microscopy NONE NRG Mucus detection in urine sediment by light microscopy NEGATIVE NRG Complete urinalysis with reflex to culture NO NRG Complete blood count (CBC) with automated white blood cell (WBC) differential - 03/02/18 16:18 Blood leukocytes automated count (number/volume) 5.8 10*3/uL 4.3-11.0 Blood erythrocytes automated count (number/volume) 3.58 10*6/uL 4.35-5.85 Venous blood hemoglobin measurement (mass/volume) 11.0 g/dL 11.5-16.0 Blood hematocrit (volume fraction) 35 % 35-52 Automated erythrocyte mean corpuscular volume 98 [foz_us] 80-99 Automated erythrocyte mean corpuscular hemoglobin (mass per erythrocyte) 31 pg 25-34 Automated erythrocyte mean corpuscular hemoglobin concentration measurement ( mass/volume) 32 g/dL 32-36 Automated erythrocyte distribution width ratio 14.0 % 10.0-14.5 Automated blood platelet count (count/volume) 76 10*3/uL 130-400 Automated blood platelet mean volume measurement 12.7 [foz_us] 7.4-10.4 Automated blood neutrophils/100 leukocytes 65 % 42-75 Automated blood lymphocytes/100 leukocytes 22 % 12-44 Blood monocytes/100 leukocytes 10 % 0-12 Automated blood eosinophils/100 leukocytes 3 % 0-10 Automated blood basophils/100 leukocytes 0 % 0-10 Blood neutrophils automated count (number/volume) 3.8 10*3 1.8-7.8 Blood lymphocytes automated count (number/volume) 1.3 10*3 1.0-4.0 Blood monocytes automated count (number/volume) 0.6 10*3 0.0-1.0 Automated eosinophil count 0.2 10*3/uL 0.0-0.3 Automated blood basophil count (count/volume) 0.0 10*3/uL 0.0-0.1 Comprehensive metabolic panel - 03/02/18 16:18 Serum or plasma sodium measurement (moles/volume) 139 mmol/L 135-145 Serum or plasma potassium measurement (moles/volume) 4.7 mmol/L 3.6-5.0 Serum or plasma chloride measurement (moles/volume) 100 mmol/L 98-107 Carbon dioxide 32 mmol/L 21-32 Serum or plasma anion gap determination (moles/volume) 7 mmol/L 5-14 Serum or plasma urea nitrogen measurement (mass/volume) 19 mg/dL 7-18 Serum or plasma creatinine measurement (mass/volume) 1.68 mg/dL 0.60-1.30 Serum or plasma urea nitrogen/creatinine mass ratio 11 NRG Serum or plasma creatinine measurement with calculation of estimated glomerular filtration rate 29 NRG Serum or plasma glucose measurement (mass/volume) 96 mg/dL 70-105 Serum or plasma calcium measurement (mass/volume) 9.5 mg/dL 8.5-10.1 Serum or plasma total bilirubin measurement (mass/volume) 0.3 mg/dL 0.1-1.0 Serum or plasma alkaline phosphatase measurement (enzymatic activity/volume) 67 U/L 40-136 Serum or plasma aspartate aminotransferase measurement (enzymatic activity/ volume) 23 U/L 5-34 Serum or plasma alanine aminotransferase measurement (enzymatic activity/volume ) 13 U/L 0-55 Serum or plasma protein measurement (mass/volume) 5.9 g/dL 6.4-8.2 Serum or plasma albumin measurement (mass/volume) 3.2 g/dL 3.2-4.5 Complete blood count (CBC) with automated white blood cell (WBC) differential - 03/03/18 06:31 Blood leukocytes automated count (number/volume) 4.9 10*3/uL 4.3-11.0 Blood erythrocytes automated count (number/volume) 3.38 10*6/uL 4.35-5.85 Venous blood hemoglobin measurement (mass/volume) 10.3 g/dL 11.5-16.0 Blood hematocrit (volume fraction) 33 % 35-52 Automated erythrocyte mean corpuscular volume 98 [foz_us] 80-99 Automated erythrocyte mean corpuscular hemoglobin (mass per erythrocyte) 30 pg 25-34 Automated erythrocyte mean corpuscular hemoglobin concentration measurement ( mass/volume) 31 g/dL 32-36 Automated erythrocyte distribution width ratio 14.2 % 10.0-14.5 Automated blood platelet count (count/volume) 65 10*3/uL 130-400 Automated blood platelet mean volume measurement 12.2 [foz_us] 7.4-10.4 Automated blood neutrophils/100 leukocytes 65 % 42-75 Automated blood lymphocytes/100 leukocytes 23 % 12-44 Blood monocytes/100 leukocytes 9 % 0-12 Automated blood eosinophils/100 leukocytes 3 % 0-10 Automated blood basophils/100 leukocytes 0 % 0-10 Blood neutrophils automated count (number/volume) 3.2 10*3 1.8-7.8 Blood lymphocytes automated count (number/volume) 1.2 10*3 1.0-4.0 Blood monocytes automated count (number/volume) 0.5 10*3 0.0-1.0 Automated eosinophil count 0.1 10*3/uL 0.0-0.3 Automated blood basophil count (count/volume) 0.0 10*3/uL 0.0-0.1 Capillary blood glucose measurement by glucometer (mass/volume) - 05/07/18 09: 04 Capillary blood glucose measurement by glucometer (mass/volume) 181 mg/dL 70-110 Complete blood count (CBC) with automated white blood cell (WBC) differential - 05/07/18 09:05 Blood leukocytes automated count (number/volume) 10.5 10*3/uL 4.3-11.0 Blood erythrocytes automated count (number/volume) 5.05 10*6/uL 4.35-5.85 Venous blood hemoglobin measurement (mass/volume) 15.1 g/dL 11.5-16.0 Blood hematocrit (volume fraction) 51 % 35-52 Automated erythrocyte mean corpuscular volume 100 [foz_us] 80-99 Automated erythrocyte mean corpuscular hemoglobin (mass per erythrocyte) 30 pg 25-34 Automated erythrocyte mean corpuscular hemoglobin concentration measurement ( mass/volume) 30 g/dL 32-36 Automated erythrocyte distribution width ratio 15.0 % 10.0-14.5 Automated blood platelet count (count/volume) 149 10*3/uL 130-400 Automated blood platelet mean volume measurement 11.7 [foz_us] 7.4-10.4 Automated blood neutrophils/100 leukocytes 85 % 42-75 Automated blood lymphocytes/100 leukocytes 9 % 12-44 Blood monocytes/100 leukocytes 6 % 0-12 Automated blood eosinophils/100 leukocytes 0 % 0-10 Automated blood basophils/100 leukocytes 0 % 0-10 Blood neutrophils automated count (number/volume) 8.9 10*3 1.8-7.8 Blood lymphocytes automated count (number/volume) 1.0 10*3 1.0-4.0 Blood monocytes automated count (number/volume) 0.6 10*3 0.0-1.0 Automated eosinophil count 0.0 10*3/uL 0.0-0.3 Automated blood basophil count (count/volume) 0.0 10*3/uL 0.0-0.1 Comprehensive metabolic panel - 05/07/18 09:05 Serum or plasma sodium measurement (moles/volume) 172 mmol/L 135-145 Serum or plasma potassium measurement (moles/volume) 3.0 mmol/L 3.6-5.0 Serum or plasma chloride measurement (moles/volume) 103 mmol/L 98-107 Carbon dioxide 38 mmol/L 21-32 Serum or plasma anion gap determination (moles/volume) 30 mmol/L 5-14 Serum or plasma urea nitrogen measurement (mass/volume) 28 mg/dL 7-18 Serum or plasma creatinine measurement (mass/volume) 2.29 mg/dL 0.60-1.30 Serum or plasma urea nitrogen/creatinine mass ratio 12 NRG Serum or plasma creatinine measurement with calculation of estimated glomerular filtration rate 20 NRG Serum or plasma glucose measurement (mass/volume) 214 mg/dL 70-105 Serum or plasma calcium measurement (mass/volume) 11.7 mg/dL 8.5-10.1 Serum or plasma total bilirubin measurement (mass/volume) 0.6 mg/dL 0.1-1.0 Serum or plasma alkaline phosphatase measurement (enzymatic activity/volume) 123 U/L 40-136 Serum or plasma aspartate aminotransferase measurement (enzymatic activity/ volume) 19 U/L 5-34 Serum or plasma alanine aminotransferase measurement (enzymatic activity/volume ) 13 U/L 0-55 Serum or plasma protein measurement (mass/volume) 7.9 g/dL 6.4-8.2 Serum or plasma albumin measurement (mass/volume) 4.0 g/dL 3.2-4.5 PT panel in platelet poor plasma by coagulation assay - 05/07/18 09:05 Prothrombin time (PT) in platelet poor plasma by coagulation assay 15.0 s 12.2-14.7 INR in platelet poor plasma or blood by coagulation assay 1.2 0.8-1.4 Activated partial thromboplastin time (aPTT) in platelet poor plasma bycoagulation assay - 05/07/18 09:05 Activated partial thromboplastin time (aPTT) in platelet poor plasma bycoagulation assay 26 s 24-35 Fibrin D-dimer FEU measurement in platelet poor plasma (mass/volume) - 09:05 Fibrin D-dimer FEU measurement in platelet poor plasma (mass/volume) 1.11 ug/mL 0.00-0.49 Serum or plasma troponin i.cardiac measurement (mass/volume) - 05/07/18 09:05 Serum or plasma troponin i.cardiac measurement (mass/volume) < ng/ mL <0.30 Complete urinalysis with reflex to culture - 05/07/18 10:18 Urine color determination YELLOW NRG Urine clarity determination CLEAR NRG Urine pH measurement by test strip 9 5-9 Specific gravity of urine by test strip 1.015 1.016- 1.022 Urine protein assay by test strip, semi-quantitative 3+ NEGATIVE Urine glucose detection by automated test strip NEGATIVE NEGATIVE Erythrocytes detection in urine sediment by light microscopy 2+ NEGATIVE Urine ketones detection by automated test [...] detection in urine sediment by light microscopy TRACE NRG Squamous epithelial cells detection in urine sediment by light microscopy RARE NRG Crystals detection in urine sediment by light microscopy NONE NRG Casts detection in urine sediment by light microscopy PRESENT NRG Mucus detection in urine sediment by light microscopy NEGATIVE NRG Complete urinalysis with reflex to culture NO NRG Amorphous sediment detection in urine sediment by light microscopy RARE GERMAN PHOSPHATE NRG Hyaline casts detection in urine sediment by light microscopy RARE NRG Whole blood basic metabolic panel - 05/07/18 16:31 Serum or plasma sodium measurement (moles/volume) 170 mmol/L 135-145 Serum or plasma potassium measurement (moles/volume) 3.2 mmol/L 3.6-5.0 Serum or plasma chloride measurement (moles/volume) 112 mmol/L 98-107 Carbon dioxide 38 mmol/L 21-32 Serum or plasma anion gap determination (moles/volume) 20 mmol/L 5-14 Serum or plasma urea nitrogen measurement (mass/volume) 29 mg/dL 7-18 Serum or plasma creatinine measurement (mass/volume) 2.10 mg/dL 0.60-1.30 Serum or plasma urea nitrogen/creatinine mass ratio 14 NRG Serum or plasma creatinine measurement with calculation of estimated glomerular filtration rate 23 NRG Serum or plasma glucose measurement (mass/volume) 133 mg/dL 70-105 Serum or plasma calcium measurement (mass/volume) 10.6 mg/dL 8.5-10.1 Complete blood count (CBC) with automated white blood cell (WBC) differential - 05/08/18 05:28 Blood leukocytes automated count (number/volume) 10.4 10*3/uL 4.3-11.0 Blood erythrocytes automated count (number/volume) 4.79 10*6/uL 4.35-5.85 Venous blood hemoglobin measurement (mass/volume) 13.9 g/dL 11.5-16.0 Blood hematocrit (volume fraction) 48 % 35-52 Automated erythrocyte mean corpuscular volume 100 [foz_us] 80-99 Automated erythrocyte mean corpuscular hemoglobin (mass per erythrocyte) 29 pg 25-34 Automated erythrocyte mean corpuscular hemoglobin concentration measurement ( mass/volume) 29 g/dL 32-36 Automated erythrocyte distribution width ratio 15.9 % 10.0-14.5 Automated blood platelet count (count/volume) 120 10*3/uL 130-400 Automated blood platelet mean volume measurement 12.0 [foz_us] 7.4-10.4 Automated blood neutrophils/100 leukocytes 77 % 42-75 Automated blood lymphocytes/100 leukocytes 14 % 12-44 Blood monocytes/100 leukocytes 9 % 0-12 Automated blood eosinophils/100 leukocytes 0 % 0-10 Automated blood basophils/100 leukocytes 0 % 0-10 Blood neutrophils automated count (number/volume) 8.0 10*3 1.8-7.8 Blood lymphocytes automated count (number/volume) 1.5 10*3 1.0-4.0 Blood monocytes automated count (number/volume) 0.9 10*3 0.0-1.0 Automated eosinophil count 0.0 10*3/uL 0.0-0.3 Automated blood basophil count (count/volume) 0.0 10*3/uL 0.0-0.1 Comprehensive metabolic panel - 05/08/18 05:28 Serum or plasma sodium measurement (moles/volume) 164 mmol/L 135-145 Serum or plasma potassium measurement (moles/volume) 3.1 mmol/L 3.6-5.0 Serum or plasma chloride measurement (moles/volume) 115 mmol/L 98-107 Carbon dioxide 32 mmol/L 21-32 Serum or plasma anion gap determination (moles/volume) 17 mmol/L 5-14 Serum or plasma urea nitrogen measurement (mass/volume) 35 mg/dL 7-18 Serum or plasma creatinine measurement (mass/volume) 2.32 mg/dL 0.60-1.30 Serum or plasma urea nitrogen/creatinine mass ratio 15 NRG Serum or plasma creatinine measurement with calculation of estimated glomerular filtration rate 20 NRG Serum or plasma glucose measurement (mass/volume) 125 mg/dL 70-105 Serum or plasma calcium measurement (mass/volume) 9.7 mg/dL 8.5-10.1 Serum or plasma total bilirubin measurement (mass/volume) 1.2 mg/dL 0.1-1.0 Serum or plasma alkaline phosphatase measurement (enzymatic activity/volume) 122 U/L 40-136 Serum or plasma aspartate aminotransferase measurement (enzymatic activity/ volume) 88 U/L 5-34 Serum or plasma alanine aminotransferase measurement (enzymatic activity/volume ) 23 U/L 0-55 Serum or plasma protein measurement (mass/volume) 7.2 g/dL 6.4-8.2 Serum or plasma albumin measurement (mass/volume) 3.7 g/dL 3.2-4.5 Lipid 1996 panel - 05/08/18 05:28 Serum or plasma triglyceride measurement (mass/volume) 197 mg/dL <150 Serum or plasma cholesterol measurement (mass/volume) 131 mg/dL < 200 Serum or plasma cholesterol in HDL measurement (mass/volume) 29 mg/ dL 40-60 Cholesterol in LDL [mass/volume] in serum or plasma by direct assay 58 mg/dL 1-129 Serum or plasma cholesterol in VLDL measurement (mass/volume) 39 mg/ dL 5-40 Whole blood basic metabolic panel - 05/08/18 16:10 Serum or plasma sodium measurement (moles/volume) 157 mmol/L 135-145 Serum or plasma potassium measurement (moles/volume) 3.6 mmol/L 3.6-5.0 Serum or plasma chloride measurement (moles/volume) 115 mmol/L 98-107 Carbon dioxide 31 mmol/L 21-32 Serum or plasma anion gap determination (moles/volume) 11 mmol/L 5-14 Serum or plasma urea nitrogen measurement (mass/volume) 37 mg/dL 7-18 Serum or plasma creatinine measurement (mass/volume) 2.13 mg/dL 0.60-1.30 Serum or plasma urea nitrogen/creatinine mass ratio 17 NRG Serum or plasma creatinine measurement with calculation of estimated glomerular filtration rate 22 NRG Serum or plasma glucose measurement (mass/volume) 117 mg/dL 70-105 Serum or plasma calcium measurement (mass/volume) 9.3 mg/dL 8.5-10.1 Complete blood count (CBC) with automated white blood cell (WBC) differential - 05/10/18 05:49 Blood leukocytes automated count (number/volume) 8.7 10*3/uL 4.3-11.0 Blood erythrocytes automated count (number/volume) 3.80 10*6/uL 4.35-5.85 Venous blood hemoglobin measurement (mass/volume) 11.1 g/dL 11.5-16.0 Blood hematocrit (volume fraction) 37 % 35-52 Automated erythrocyte mean corpuscular volume 97 [foz_us] 80-99 Automated erythrocyte mean corpuscular hemoglobin (mass per erythrocyte) 29 pg 25-34 Automated erythrocyte mean corpuscular hemoglobin concentration measurement ( mass/volume) 30 g/dL 32-36 Automated erythrocyte distribution width ratio 15.2 % 10.0-14.5 Automated blood platelet count (count/volume) 68 10*3/uL 130-400 Automated blood platelet mean volume measurement 11.7 [foz_us] 7.4-10.4 Automated blood neutrophils/100 leukocytes 69 % 42-75 Automated blood lymphocytes/100 leukocytes 20 % 12-44 Blood monocytes/100 leukocytes 7 % 0-12 Automated blood eosinophils/100 leukocytes 4 % 0-10 Automated blood basophils/100 leukocytes 0 % 0-10 Blood neutrophils automated count (number/volume) 6.0 10*3 1.8-7.8 Blood lymphocytes automated count (number/volume) 1.7 10*3 1.0-4.0 Blood monocytes automated count (number/volume) 0.6 10*3 0.0-1.0 Automated eosinophil count 0.3 10*3/uL 0.0-0.3 Automated blood basophil count (count/volume) 0.0 10*3/uL 0.0-0.1 Comprehensive metabolic panel - 05/10/18 05:49 Serum or plasma sodium measurement (moles/volume) 144 mmol/L 135-145 Serum or plasma potassium measurement (moles/volume) 3.4 mmol/L 3.6-5.0 Serum or plasma chloride measurement (moles/volume) 108 mmol/L 98-107 Carbon dioxide 28 mmol/L 21-32 Serum or plasma anion gap determination (moles/volume) 8 mmol/L 5-14 Serum or plasma urea nitrogen measurement (mass/volume) 37 mg/dL 7-18 Serum or plasma creatinine measurement (mass/volume) 1.09 mg/dL 0.60-1.30 Serum or plasma urea nitrogen/creatinine mass ratio 34 NRG Serum or plasma creatinine measurement with calculation of estimated glomerular filtration rate 48 NRG Serum or plasma glucose measurement (mass/volume) 108 mg/dL 70-105 Serum or plasma calcium measurement (mass/volume) 8.1 mg/dL 8.5-10.1 Serum or plasma total bilirubin measurement (mass/volume) 1.1 mg/dL 0.1-1.0 Serum or plasma alkaline phosphatase measurement (enzymatic activity/volume) 78 U/L 40-136 Serum or plasma aspartate aminotransferase measurement (enzymatic activity/ volume) 107 U/L 5-34 Serum or plasma alanine aminotransferase measurement (enzymatic activity/volume ) 68 U/L 0-55 Serum or plasma protein measurement (mass/volume) 5.2 g/dL 6.4-8.2 Serum or plasma albumin measurement (mass/volume) 2.8 g/dL 3.2-4.5 Complete urinalysis with reflex to culture - 10/12/18 14:25 Urine color determination YELLOW NRG Urine clarity determination CLEAR NRG Urine pH measurement by test strip 6.5 5-9 Specific gravity of urine by test strip 1.015 1.016- 1.022 Urine protein assay by test strip, semi-quantitative NEGATIVE NEGATIVE Urine glucose detection by automated test strip NEGATIVE NEGATIVE Erythrocytes detection in urine sediment by light microscopy NEGATIVE NEGATIVE Urine ketones detection by automated test strip NEGATIVE NEGATIVE Urine nitrite detection by test strip NEGATIVE NEGATIVE Urine total bilirubin detection by test strip NEGATIVE NEGATIVE Urine urobilinogen measurement by automated test strip (mass/volume) 1 mg/dL NORMAL Urine leukocyte esterase detection by dipstick 1+ NEGATIVE Automated urine sediment erythrocyte count by microscopy (number/high power field) NONE NRG Automated urine sediment leukocyte count by microscopy (number/high power field ) NONE NRG Bacteria detection in urine sediment by light microscopy NEGATIVE NRG Squamous epithelial cells detection in urine sediment by light microscopy NONE NRG Crystals detection in urine sediment by light microscopy PRESENT NRG Casts detection in urine sediment by light microscopy NONE NRG Mucus detection in urine sediment by light microscopy NEGATIVE NRG Complete urinalysis with reflex to culture NO NRG Calcium oxalate crystals detection in urine sediment by light microscopy FEW NRG Complete blood count (CBC) with automated white blood cell (WBC) differential - 10/12/18 14:40 Blood leukocytes automated count (number/volume) 4.5 10*3/uL 4.3-11.0 Blood erythrocytes automated count (number/volume) 4.18 10*6/uL 4.35-5.85 Venous blood hemoglobin measurement (mass/volume) 12.3 g/dL 11.5-16.0 Blood hematocrit (volume fraction) 41 % 35-52 Automated erythrocyte mean corpuscular volume 98 [foz_us] 80-99 Automated erythrocyte mean corpuscular hemoglobin (mass per erythrocyte) 29 pg 25-34 Automated erythrocyte mean corpuscular hemoglobin concentration measurement ( mass/volume) 30 g/dL 32-36 Automated erythrocyte distribution width ratio 15.3 % 10.0-14.5 Automated blood platelet count (count/volume) 82 10*3/uL 130-400 Automated blood platelet mean volume measurement 12.4 [foz_us] 7.4-10.4 Automated blood neutrophils/100 leukocytes 70 % 42-75 Automated blood lymphocytes/100 leukocytes 19 % 12-44 Blood monocytes/100 leukocytes 7 % 0-12 Automated blood eosinophils/100 leukocytes 4 % 0-10 Automated blood basophils/100 leukocytes 0 % 0-10 Blood neutrophils automated count (number/volume) 3.1 10*3 1.8-7.8 Blood lymphocytes automated count (number/volume) 0.8 10*3 1.0-4.0 Blood monocytes automated count (number/volume) 0.3 10*3 0.0-1.0 Automated eosinophil count 0.2 10*3/uL 0.0-0.3 Automated blood basophil count (count/volume) 0.0 10*3/uL 0.0-0.1 Comprehensive metabolic panel - 10/12/18 14:40 Serum or plasma sodium measurement (moles/volume) 139 mmol/L 135-145 Serum or plasma potassium measurement (moles/volume) 4.3 mmol/L 3.6-5.0 Serum or plasma chloride measurement (moles/volume) 100 mmol/L 98-107 Carbon dioxide 32 mmol/L 21-32 Serum or plasma anion gap determination (moles/volume) 7 mmol/L 5-14 Serum or plasma urea nitrogen measurement (mass/volume) 20 mg/dL 7-18 Serum or plasma creatinine measurement (mass/volume) 1.18 mg/dL 0.60-1.30 Serum or plasma urea nitrogen/creatinine mass ratio 17 NRG Serum or plasma creatinine measurement with calculation of estimated glomerular filtration rate 44 NRG Serum or plasma glucose measurement (mass/volume) 189 mg/dL 70-105 Serum or plasma calcium measurement (mass/volume) 9.1 mg/dL 8.5-10.1 Serum or plasma total bilirubin measurement (mass/volume) 0.6 mg/dL 0.1-1.0 Serum or plasma alkaline phosphatase measurement (enzymatic activity/volume) 86 U/L 40-136 Serum or plasma aspartate aminotransferase measurement (enzymatic activity/ volume) 23 U/L 5-34 Serum or plasma alanine aminotransferase measurement (enzymatic activity/volume ) 13 U/L 0-55 Serum or plasma protein measurement (mass/volume) 5.8 g/dL 6.4-8.2 Serum or plasma albumin measurement (mass/volume) 3.0 g/dL 3.2-4.5 CALCIUM CORRECTED 9.9 mg/dL 8.5-10.1 Influenza virus A and B antigen detection - 10/12/18 17:00 FLU RESULT NEGATIVE FOR INFLUENZA A AND B ANTIGENS BY IA NR Arterial blood gas measurement - 10/12/18 17:05 Blood pCO2 52 mm[Hg] 35-45 Blood pO2 105 mm[Hg] 79-93 Arterial blood bicarbonate measurement (moles/volume) 35 mmol/L 23-27 Arterial blood base excess by calculation 10.0 mmol/L - 2.5-2.5 Arterial blood oxygen saturation measurement 97 % 94-100 * Inhaled oxygen flow rate 3 L NRG Arterial blood pH measurement with patient temperature correction 7.44 7.37-7.43 Arterial blood carbon dioxide, total measurement (moles/volume) 36.3 mmol/L 21.0-31.0 Body site RIGHT RADIAL NRG Assessment of wrist artery patency prior to arterial puncture POSITIVE NRG Setting of ventilation mode NO NRG Measurement of body temperature 98.2 NRG Fibrin D-dimer FEU measurement in platelet poor plasma (mass/volume) - 17:35 Fibrin D-dimer FEU measurement in platelet poor plasma (mass/volume) 10.12 ug/mL 0.00-0.49 Whole blood basic metabolic panel - 10/13/18 07:07 Serum or plasma sodium measurement (moles/volume) 139 mmol/L 135-145 Serum or plasma potassium measurement (moles/volume) 4.3 mmol/L 3.6-5.0 Serum or plasma chloride measurement (moles/volume) 105 mmol/L 98-107 Carbon dioxide 30 mmol/L 21-32 Serum or plasma anion gap determination (moles/volume) 4 mmol/L 5-14 Serum or plasma urea nitrogen measurement (mass/volume) 17 mg/dL 7-18 Serum or plasma creatinine measurement (mass/volume) 0.81 mg/dL 0.60-1.30 Serum or plasma urea nitrogen/creatinine mass ratio 21 NRG Serum or plasma creatinine measurement with calculation of estimated glomerular filtration rate > NRG Serum or plasma glucose measurement (mass/volume) 80 mg/dL 70-105 Serum or plasma calcium measurement (mass/volume) 7.8 mg/dL 8.5-10.1 Stool occult blood screen - 10/14/18 17:00 Stool gastrointestinal hemoglobin detection NEGATIVE NEGATIVE Complete blood count (CBC) with automated white blood cell (WBC) differential - 10/15/18 04:15 Blood leukocytes automated count (number/volume) 2.9 10*3/uL 4.3-11.0 Blood erythrocytes automated count (number/volume) 3.47 10*6/uL 4.35-5.85 Venous blood hemoglobin measurement (mass/volume) 10.2 g/dL 11.5-16.0 Blood hematocrit (volume fraction) 34 % 35-52 Automated erythrocyte mean corpuscular volume 97 [foz_us] 80-99 Automated erythrocyte mean corpuscular hemoglobin (mass per erythrocyte) 29 pg 25-34 Automated erythrocyte mean corpuscular hemoglobin concentration measurement ( mass/volume) 30 g/dL 32-36 Automated erythrocyte distribution width ratio 14.9 % 10.0-14.5 Automated blood platelet count (count/volume) 51 10*3/uL 130-400 Automated blood platelet mean volume measurement 12.2 [foz_us] 7.4-10.4 Automated blood neutrophils/100 leukocytes 46 % 42-75 Automated blood lymphocytes/100 leukocytes 40 % 12-44 Blood monocytes/100 leukocytes 9 % 0-12 Automated blood eosinophils/100 leukocytes 5 % 0-10 Automated blood basophils/100 leukocytes 0 % 0-10 Blood neutrophils automated count (number/volume) 1.4 10*3 1.8-7.8 Blood lymphocytes automated count (number/volume) 1.2 10*3 1.0-4.0 Blood monocytes automated count (number/volume) 0.3 10*3 0.0-1.0 Automated eosinophil count 0.2 10*3/uL 0.0-0.3 Automated blood basophil count (count/volume) 0.0 10*3/uL 0.0-0.1 Whole blood basic metabolic panel - 10/15/18 04:15 Serum or plasma sodium measurement (moles/volume) 140 mmol/L 135-145 Serum or plasma potassium measurement (moles/volume) 3.2 mmol/L 3.6-5.0 Serum or plasma chloride measurement (moles/volume) 106 mmol/L 98-107 Carbon dioxide 27 mmol/L 21-32 Serum or plasma anion gap determination (moles/volume) 7 mmol/L 5-14 Serum or plasma urea nitrogen measurement (mass/volume) 18 mg/dL 7-18 Serum or plasma creatinine measurement (mass/volume) 0.84 mg/dL 0.60-1.30 Serum or plasma urea nitrogen/creatinine mass ratio 21 NRG Serum or plasma creatinine measurement with calculation of estimated glomerular filtration rate > NRG Serum or plasma glucose measurement (mass/volume) 111 mg/dL 70-105 Serum or plasma calcium measurement (mass/volume) 7.6 mg/dL 8.5-10.1 Encounters ACCT No. Visit Date/Time Discharge Status Pt. Type Provider Facility Loc./Unit Complaint [id number] 10/22/2018 15:48:00 10/22/2018 23:59:59 CLS Preadmit DILMA RAHMAN MD [facility] RAD SCREENING [id number] 10/12/2018 17:00:00 10/15/2018 15:40:00 DIS Inpatient RIZWAN VIDAL MD [facility] 4TH TRANSIENT HYPOTENSION HYPOXIA [id number] 05/01/2018 11:00:00 05/01/2018 15:10:00 DIS Outpatient MARBELLA TERRAZAS MD [facility] PREOP COLONOSCOPY [id number] 04/02/2018 00:09:00 04/02/2018 23:59:59 CLS Preadmit JAZZ SUAREZ MD [facility] ONC [id number] 01/01/2018 13:04:00 04/01/2018 00:01:00 DIS Outpatient JAZZ SUAREZ MD [facility] ONC [id number] 03/02/2018 19:08:00 03/03/2018 13:25:00 DIS Inpatient MAURICIO GUSMAN MD [facility] 4TH CONFUSION/UTI [id number] 02/26/2018 11:20:00 02/26/2018 23:59:59 CLS Outpatient KARAN VIVEROS MD [facility] CARD R00.1 BRADYCARDIA [id number] 02/12/2018 07:18:00 02/12/2018 23:59:59 CLS Outpatient KARAN VIVEROS MD [facility] CARD R00.1 BRADYCARDIA [id number] 01/17/2018 17:42:00 01/17/2018 22:07:00 DIS Emergency SOFIA 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 [employer]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 [facility] ER FALL;DIZZINESS [id number] 09/13/2017 15:02:00 09/13/2017 23:59:59 CLS Outpatient DILMA RAHMAN MD [facility] RAD R06.09 [id number] 09/11/2017 11:03:00 09/11/2017 23:59:59 CLS Outpatient ATTILA BATISTA [employer]NAL OFF[employer]ER [facility] RAD KNEE PAIN [id number] 09/11/2017 10:59:00 09/11/2017 23:59:59 CLS Outpatient DILMA RAHMAN MD [facility] RAD R10.9 UNSPECIFIED ABDOMINAL PAIN [id number] 09/08/2017 12:22:00 09/08/2017 23:59:59 CLS Outpatient DILMA RAHMAN MD [facility] RAD MAMMO SCREENING [id number] 09/05/2017 15:51:00 09/05/2017 23:59:59 CLS Preadmit DILMA RAHMAN MD [facility] RAD Z12.31 SCREENING FOR MALIGNANT NEOPLASM OF BREAST [id number] 07/03/2017 13:24:00 07/08/2017 00:01:00 DIS Outpatient JAZZ SUAREZ MD [facility] ONC [id number] 02/10/2017 18:08:00 02/10/2017 23:59:59 CLS Outpatient AUGUSTINE DUFFY APRN [facility] LAB HEMATURIA [id number] 12/26/2016 13:46:00 01/23/2017 00:01:00 DIS Outpatient JANE WELLS MD [facility] ONC [id number] 09/26/2016 12:52:00 09/30/2016 12:10:00 DIS Inpatient KASHMIR WALKER MD [facility] 4TH F FEMER FX, ARF [id number] 08/02/2016 12:56:00 08/02/2016 23:59:59 CLS Outpatient ANTOINE HURTADO MD [facility] RAD SCREENING [id number] 04/06/2016 10:53:00 07/05/2016 00:01:00 DIS Outpatient JANE WELLS MD [facility] ONC [id number] 01/14/2016 16:04:00 01/14/2016 23:59:59 CLS Outpatient HENRIETTA STACY [facility] RAD R RIB PAIN [id number] 10/07/2015 13:47:00 01/05/2016 00:01:00 DIS Outpatient JANE WELLS MD [facility] ONC [id number] 11/02/2015 13:48:00 11/02/2015 23:59:59 CLS Outpatient AUGUSTINE DUFFY Kareen JENNIFER [facility] RAD COUGH,ASPIRATION [id number] 08/13/2015 11:15:00 08/13/2015 23:59:59 CLS Outpatient ANTOINE HURTADO MD [facility] HH ANEMIA, FX FEMUR, TKR [id number] 08/06/2015 22:09:00 08/10/2015 13:50:00 DIS Inpatient KASHMIR WALKER MD [facility] 4TH LEFT DISTAL FEMUR FX, DIZZINESS [id number] 04/08/2015 12:52:00 07/07/2015 00:01:00 DIS Outpatient JANE WELLS MD [facility] ONC [id number] 06/24/2015 11:34:00 06/24/2015 23:59:59 CLS Outpatient HENRIETTA STACY [facility] RAD SCREENING,LOW BACK PAIN [id number] 02/18/2015 09:59:00 02/18/2015 23:59:59 CLS Outpatient MORALES RAY MD [facility] RAD HEMATURIA [id number] 11/19/2014 13:20:00 11/19/2014 23:59:59 CLS Outpatient JANE WELLS MD [facility] ONC [id number] 08/30/2014 14:11:00 08/30/2014 23:59:59 CLS Outpatient ANTOINE HURTADO MD [facility] CVS UTI FOLLOW UP [id number] 08/21/2014 10:10:00 08/25/2014 12:05:00 DIS Inpatient KASHMIR WALKER MD [facility] SURGICAL OSTEOARTHRITIS; PAINFUL HARDWARE [id number] 08/11/2014 11:45:00 08/11/2014 23:59:59 CLS Outpatient KASHMIR WALKER MD [facility] PREOP OSTEOARTHRITIS; PAINFUL HARDWARE [id number] 06/04/2014 10:32:00 06/04/2014 23:59:59 CLS Outpatient JANE WELLS MD [facility] ONC [id number] 03/21/2014 10:54:00 03/21/2014 23:59:59 CLS Outpatient KASHMIR WALKER MD [facility] CARD SCREENING [id number] 03/20/2014 09:42:00 03/20/2014 23:59:59 CLS Outpatient HENRIETTA STACY [facility] RAD SCREENING [id number] 12/04/2013 09:52:00 02/04/2014 00:01:00 DIS Outpatient JANE WELLS MD [facility] ONC [id number] 01/17/2014 22:10:00 01/17/2014 23:59:59 CLS Outpatient ANTOIEN HURTADO MD [facility] CVS R/O UTI, C/O STOMACH PAIN [id number] 08/01/2013 12:36:00 10/09/2013 00:01:00 DIS Outpatient JANE WELLS MD [facility] ONC [id number] 07/10/2013 15:29:00 07/10/2013 23:59:59 CLS Outpatient [id number] 06/12/2013 14:35:00 06/12/2013 23:59:59 CLS Outpatient [id number] 05/22/2013 14:56:00 05/22/2013 23:59:59 CLS Outpatient [id number] 05/21/2013 23:16:00 05/21/2013 23:59:59 CLS Outpatient [id number] 05/02/2013 01:10:00 05/07/2013 13:30:00 DIS Inpatient ANTOINE HURTADO MD [facility] SURGICAL L TIBIA FRACTURE, UTI, DEHYDRATION [id number] 04/25/2013 14:28:00 04/25/2013 22:00:00 DIS Outpatient ANTOINE HURTADO MD [facility] SDC HYPOTENSION [id number] 03/15/2013 13:26:00 03/15/2013 23:59:59 CLS Outpatient ANTOINE HURTADO MD [facility] RAD SCREENING [id number] 03/01/2013 17:34:00 03/04/2013 14:40:00 DIS Inpatient ANTOINE HURTADO MD [facility] 4TH N/V,VOLUME DEPLETION [id number] 05/07/2018 10:20:00 ACT Inpatient UZMA GELLER, MAURICIO Richards [facility] 4TH AMS,DEHYDRATION,HYPOKALEMAI,ACUTE ON [id number] 05/04/2018 09:15:00 Document Registration [id number] 06/24/2015 11:31:00 Document Registration [id number] 06/24/2015 11:31:00 Document Registration [id number] 06/24/2015 11:31:00 Document Registration [id number] 06/24/2015 11:31:00 Document Registration [id number] 12/08/2014 08:36:00 Document Registration [id number] 12/02/2014 14:58:00 Document Registration [id number] 10/30/2012 10:33:00 Document Registration [id number] 10/18/2012 10:39:00 Document Registration [id number] 10/16/2012 09:55:00 Document Registration [id number] 10/16/2012 09:41:00 Document Registration [id number] 03/29/2012 09:57:00 Document Registration [id number] 01/14/2012 20:57:00 Document Registration [id number] 01/09/2012 08:32:00 Document Registration [id number] 10/28/2011 10:48:00 Document Registration [id number] 12/09/2010 15:29:00 Document Registration [id number] 11/04/2010 10:34:00 Document Registration [id number] 08/23/2017 23:35:27 08/23/2017 23:59:59 CLS Outpatient Antoine [facility] 06/24/2015 11:36:17 ACT Document Registration
[2018-11-04 21:42] LABS: BASOPHILS % (AUTO) 0 % (0-10); EOSINOPHILS # (AUTO) 0.1 10^3/uL (0.0-0.3); EOSINOPHILS % (AUTO) 1 % (0-10); HEMATOCRIT 39 % (35-52); HEMOGLOBIN 11.7 G/DL (11.5-16.0); LYMPHOCYTES # (AUTO) 2.5 X 10^3 (1.0-4.0); LYMPHOCYTES % (AUTO) 39 % (12-44); MEAN CORPUSCULAR HEMOGLOBIN 30 PG (25-34); MEAN CORPUSCULAR HGB CONC 30 G/DL (32-36); MEAN CORPUSCULAR VOLUME 98 FL (80-99); MEAN PLATELET VOLUME 13.1 FL (7.4-10.4); MONOCYTES # (AUTO) 0.4 X 10^3 (0.0-1.0); MONOCYTES % (AUTO) 7 % (0-12); NEUTROPHILS # (AUTO) 3.3 X 10^3 (1.8-7.8); NEUTROPHILS % (AUTO) 52 % (42-75); PLATELET COUNT 94 10^3/uL (130-400); WHITE BLOOD COUNT 6.3 10^3/uL (4.3-11.0)
[2018-11-04 21:54] LABS: ABG BASE EXCESS 6.4 MMOL/L (-2.5-2.5); ABG OXYGEN SATURATION 99 % (94-100); ABG PCO2 52 MMHG (35-45); ABG PH 7.39 (7.37-7.43); ABG PO2 127 MMHG (79-93)
[2018-11-04 21:54] LABS: INR 3.1 (0.8-1.4); PROTHROMBIN TIME PATIENT 32.2 SEC (12.2-14.7)
[2018-11-04 21:56] LABS: INSPIRED O2 10L; VENTILATOR NO
[2018-11-04 21:57] LABS: PATIENT TEMP 97.5
[2018-11-04 22:03] LABS: ALANINE AMINOTRANSFERASE 18 U/L (0-55); ALKALINE PHOSPHATASE 133 U/L (40-136); BILIRUBIN,TOTAL 0.6 MG/DL (0.1-1.0); BUN/CREATININE RATIO 20; CALCIUM 8.9 MG/DL (8.5-10.1); CARBON DIOXIDE 31 MMOL/L (21-32); CHLORIDE 101 MMOL/L (98-107); CREATINE KINASE 56 U/L (29-168); CREATININE SERUM 1.12 MG/DL (0.60-1.30); GFR ESTIMATED 46; GLUCOSE 113 MG/DL (70-105); LIPASE 11 U/L (8-78); MAGNESIUM 1.6 MG/DL (1.8-2.4); POTASSIUM 4.1 MMOL/L (3.6-5.0); SODIUM 142 MMOL/L (135-145); TOTAL PROTEIN 5.9 GM/DL (6.4-8.2)
[2018-11-04 22:23] LABS: CREATINE KINASE MB 2.9 NG/ML (<6.6); MYOGLOBIN SERUM 94.4 NG/ML (10.0-92.0); TSH (THYROID ANALYZER) 3.66 UIU/ML (0.35-4.94)
[2018-11-04 23:31] LABS: BILIRUBIN,URINE NEGATIVE (NEGATIVE); CLARITY,URINE SLIGHTLY CLOUDY; COLOR,URINE YELLOW; GLUCOSE, URINE (UA) NEGATIVE (NEGATIVE); KETONES,URINE NEGATIVE (NEGATIVE); LEUKOCYTE ESTERASE ,URINE 3+ (NEGATIVE); NITRITE,URINE NEGATIVE (NEGATIVE); PH,URINE 5 (5-9); PROTEIN,URINE NEGATIVE (NEGATIVE); UROBILINOGEN,URINE 1 MG/DL (NORMAL)
[2018-11-04] MEDS: MAGNESIUM 1 GM/100 ML IVPB 100 ML IV SCH (23:40)
--- OUTSIDE RECORDS SUMMARY | 2018-11-04 23:45 | XMS REPORT | Clinical Summary ---
Author Author [facility] Organization [facility] Address Unknown Phone Unavailable Care Team Providers Care Package Dye Stand Loader Name Role Phone PCP Unavailable Allergies Active [...]
--- OUTSIDE RECORDS SUMMARY | 2018-11-04 23:51 | XMS REPORT | Continuity of Care Document ---
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,NEC 05/07/2013 ANTOINE WLIKINS MD Ot V13.02 PERSONAL HISTORY, URINARY (TRACT) [...] ABSENCE INTESTINE - LARGE/SMALL 09/15/2014 AARON GELLER, KSAHMIR Browning Ot 791.9 09/15/2014 AARON GELLER, KASHMIR [...] OF UNSPECIFIED ARTIFICIAL KNEE 07/15/2015 HENRIETTA STACY LOAN PROCESSING SUPERVISOR Ot 724.2 07/15/2015 HENRIETTA STACY LOAN PROCESSING SUPERVISOR Ot V76.12 07/31/2015 HENRIETTA STACY LOAN PROCESSING SUPERVISOR Ot 724.2 07/31/2015 HENRIETTA STACY LOAN PROCESSING SUPERVISOR Ot V76.12 08/05/2015 Ot 733.00 08/05/2015 Ot [...] MORALES Tran Ot 599.70 08/05/2015 HENRIETTA STACY LOAN PROCESSING SUPERVISOR Ot 724.2 08/05/2015 HENRIETTA STACYP Ot V76.12 [...] AARON GELLER, KASHMIR Browning Ot V72.63 08/06/2015 AAORN GELLER, KASHMIR Browning Ot V72.83 08/06/2015 AARON GELLER, KASHMIR Browning Ot V74.8 08/06/2015 FRANKY GELLER, ANTOINE Tran Ot 599.0 08/06/2015 RUSSELL GELLER, JAEN Susie Ot 244.9 08/06/2015 RUSSELL GELLER, JANE Susie Ot 287.5 08/06/2015 RUSSELL GELLER, JANE Susie Ot 401.9 08/06/2015 RUSSELL GELLER, JANE Susie Ot 496 08/06/2015 RUSSELL GELLER, JANE Susie Ot 733.00 08/06/2015 RUSSELL GELLER, JANE Susie Ot V58.69 08/06/2015 Ot V72.84 08/06/2015 CORY GELLER, MORALES Tran Ot 599.70 08/06/2015 HENRIETTA STACY LOAN PROCESSING SUPERVISOR Ot 724.2 08/06/2015 HENRIETTA STACY LOAN PROCESSING SUPERVISOR Ot V76.12 08/06/2015 RUSSELL GELLER, JANE Susie [...] 08/10/2015 AARON GELLER, KASHMIR Browning Ot Y92.[address] [facility] [address] IN [facility] NON-INSTITUT (PRIVATE 08/10/2015 AARON GELLER, KASHMIR Browning Ot Z96.642 PRESENCE OF LEFT ARTIFICIAL HIP JOINT 08/10/2015 KASHMIR WALKER MD Ot 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 RIGHT ARTIFICIAL KNEE JOINT 08/10/2015 KASHMIR WALKER MD Ot Z96.652 PRESENCE OF LEFT ARTIFICIAL KNEE JOINT 09/07/2015 FRANKY GELLER, ANTOINE Tran Ot D64.9 09/08/2015 [facility] Ot 724.2 09/08/2015 HENRIETTA [facility]ACY [facility] Ot V76.12 09/09/2015 HENRIETTA [facility]ACY [facility] Ot 724.2 09/09/2015 HENRIETTA STACY LOAN PROCESSING SUPERVISOR Ot V76.12 10/01/2015 RUSSELL GELLER, JANE Richards [...] ANTOINE A Ot D64.9 10/07/2015 HENRIETTA STACY LOAN PROCESSING SUPERVISOR Ot 724.2 10/07/2015 HENRIETTA STACY LOAN PROCESSING SUPERVISOR Ot V76.12 10/07/2015 RUSSELL GELLER, JANE Susie [...] HENRIETTA STACY Ot 724.2 10/23/2015 HENRIETTA STACY LOAN PROCESSING SUPERVISOR Ot V76.12 10/23/2015 RUSSELL GELLER, JANE Ricahrds Ot D69.6 10/23/2015 RUSSELL GELLER, JANE Richards [...] ANTOINE A Ot 791.9 11/02/2015 HENRIETTA STACY LOAN PROCESSING SUPERVISOR Ot V76.12 11/02/2015 AARON GELLER, KASHMIR T Ot V72.84 11/02/2015 RUSESLL GELLER, JANE Richards Ot 244.9 11/02/2015 RUSSELL [...] ANTOINE A Ot D64.9 11/02/2015 HENRIETTA STACY LOAN PROCESSING SUPERVISOR Ot 724.2 11/02/2015 HENRIETTA STACY LOAN PROCESSING SUPERVISOR Ot V76.12 11/02/2015 RUSSELL GELLER, JANE Richards [...] JANE Richards Ot Z79.899 11/25/2015 AUGUSTINE DUFFY BAG LOADER MACHINE OPERATOR Ot R05 12/15/2015 AUGUSTINE DUFFY BAG LOADER MACHINE OPERATOR Ot R05 01/05/2016 RUSSELL GELLER, JANE Richards Ot D69.6 THROMBOCYTOPENIA, UNSPECIFIED 01/05/2016 RUSSELL GELLER, JANE Richards Ot E83.52 HYPERCALCEMIA 01/05/2016 RUSSELL GELLER, JANE Richards Ot M81.0 AGE-RELATED OSTEOPOROSIS W/O CURRENT PAT 01/05/2016 RUSSELL GELLER, JANE Richards Ot N18.9 CHRONIC KIDNEY DISEASE, UNSPECIFIED 01/05/2016 RUSSELL GELLER, JANE Richards Ot Z79.899 OTHER LONGTERM (CURRENT) DRUG THERAPY 01/06/2016 JANE WELLS MD Ot D69.6 01/06/2016 RUSSELL GELLER, JANE Richards Ot E83.52 01/06/2016 RUSSELL GELLER, JANE Richards Ot M81.0 01/06/2016 RUSSELL GELLER, JANE Richards Ot N18.9 01/06/2016 RUSSELL GELLER, JANE Richards Ot Z79.899 01/15/2016 HENRIETTA STACY LOAN PROCESSING SUPERVISOR Ot R07.81 02/03/2016 HENRIETTA STACY LOAN PROCESSING SUPERVISOR Ot R07.81 PLEURODYNIA 02/07/2016 RUSSELL GELLER, JANE [...] 03/29/2016 JANE WELLS MD Ot Z79.899 OTHER LONGTERM (CURRENT) DRUG THERAPY 04/07/2016 JANE WELLS MD Ot D69.6 THROMBOCYTOPENIA, UNSPECIFIED 04/07/2016 JANE WELLS MD Ot E83.52 HYPERCALCEMIA 04/07/2016 JANE WELLS MD Ot M81.0 AGE-RELATED OSTEOPOROSIS W/O CURRENT PAT 04/07/2016 JANE WELLS MD Ot N18.9 CHRONIC KIDNEY DISEASE, UNSPECIFIED 04/07/2016 JANE WELLS MD Ot Z79.899 OTHER SHIP'S CARPENTER (CURRENT) DRUG THERAPY 04/07/2016 JANE WELLS MD Ot D69.6 THROMBOCYTOPENIA, UNSPECIFIED 04/07/2016 JANE WELLS MD Ot E83.52 HYPERCALCEMIA 04/07/2016 JANE WELLS MD Ot M81.0 AGE-RELATED OSTEOPOROSIS W/O CURRENT PAT 04/07/2016 JANE WELLS MD Ot N18.9 CHRONIC KIDNEY DISEASE, UNSPECIFIED 04/07/2016 JANE WELLS MD Ot Z79.899 OTHER SHIP'S CARPENTER (CURRENT) DRUG THERAPY 05/05/2016 JANE WELLS MD Ot D69.6 THROMBOCYTOPENIA, UNSPECIFIED 05/05/2016 JANE WELLS MD Ot E83.52 HYPERCALCEMIA 05/05/2016 JANE WELLS MD Ot M81.0 AGE-RELATED OSTEOPOROSIS W/O CURRENT PAT 05/05/2016 JANE WELLS MD Ot N18.9 CHRONIC KIDNEY DISEASE, UNSPECIFIED 05/05/2016 JANE WELLS MD Ot Z79.899 OTHER LONGTERM (CURRENT) DRUG THERAPY 05/13/2016 JANE WELLS MD Ot D69.6 THROMBOCYTOPENIA, UNSPECIFIED 05/13/2016 JANE WELLS MD Ot E83.52 HYPERCALCEMIA 05/13/2016 JANE WELLS MD Ot M81.0 AGE-RELATED OSTEOPOROSIS W/O CURRENT PAT 05/13/2016 JANE WELLS MD Ot N18.9 CHRONIC KIDNEY DISEASE, UNSPECIFIED 05/13/2016 JANE WELLS MD Ot Z79.899 OTHER LONGTERM (CURRENT) DRUG THERAPY 07/05/2016 JANE WELLS MD Ot D69.6 THROMBOCYTOPENIA, UNSPECIFIED 07/05/2016 JANE WELLS MD Ot E83.52 HYPERCALCEMIA 07/05/2016 JANE WELLS MD Ot M81.0 AGE-RELATED OSTEOPOROSIS W/O CURRENT PAT 07/05/2016 JANE WELLS MD Ot N18.9 CHRONIC KIDNEY DISEASE, UNSPECIFIED 07/05/2016 JANE WELLS MD Ot Z79.899 OTHER LONGTERM (CURRENT) DRUG THERAPY 07/11/2016 JANE WELLS MD Ot D69.6 THROMBOCYTOPENIA, UNSPECIFIED 07/11/2016 JANE WELLS MD Ot E83.52 HYPERCALCEMIA 07/11/2016 JANE WELLS MD Ot M81.0 AGE-RELATED OSTEOPOROSIS W/O CURRENT PAT 07/11/2016 JANE WELLS MD Ot N18.9 CHRONIC KIDNEY DISEASE, UNSPECIFIED 07/11/2016 JANE WELLS MD Ot Z79.899 OTHER LONGTERM (CURRENT) DRUG THERAPY 08/02/2016 Ot 793.81 MAMMOGRAPHIC [...] Browning Ot V74.8 SCREEN-BACTERIAL DIS NEC 08/02/2016 FRNAKY GELLER, ANTOINE Tran Ot 599.0 URIN TRACT [...] PRE- OPERATIVE NOS 08/02/2016 CORY GELLER, MORALES Tarn Ot 599.70 HEMATURIA, UNSPECIFIED 08/02/2016 ANTOINE WILKINS MD Ot D64.9 ANEMIA, UNSPECIFIED 08/02/2016 HENRIETTA STACY LOAN PROCESSING SUPERVISOR Ot 724.2 LUMBAGO 08/02/2016 HENRIETTA STACY LOAN PROCESSING SUPERVISOR Ot V76.12 OTH SCREEN MAMMO-MALIGN NEOPLASM OF [place] 08/02/2016 AUGUSTINE DUFFY BAG LOADER MACHINE OPERATOR Ot R05 COUGH 08/02/2016 HENRIETTA STACY LOAN PROCESSING SUPERVISOR Ot R07.81 PLEURODYNIA 08/02/2016 JANE WELLS MD Ot D69.6 THROMBOCYTOPENIA, UNSPECIFIED 08/02/2016 JANE WELLS MD Ot E83.52 HYPERCALCEMIA 08/02/2016 JANE WELLS MD Ot M81.0 AGE-RELATED OSTEOPOROSIS W/O CURRENT PAT 08/02/2016 JANE WELLS MD Ot N18.9 CHRONIC KIDNEY DISEASE, UNSPECIFIED 08/02/2016 JANE WELLS MD Ot Z79.899 OTHER LONGTERM (CURRENT) DRUG THERAPY 08/03/2016 ANTOINE WILKINS MD [...] 09/26/2016 JANE WELLS MD Ot Z79.899 OTHER SHIP'S CARPENTER (CURRENT) DRUG THERAPY 09/28/2016 AARON GELLER, KASHMIR [...] 10/25/2016 JANE WELLS MD Ot Z79.899 OTHER LONGTERM (CURRENT) DRUG THERAPY 10/26/2016 JANE WELLS MD Ot D69.6 THROMBOCYTOPENIA, UNSPECIFIED 10/26/2016 JANE WELLS MD Ot E83.52 HYPERCALCEMIA 10/26/2016 RUSSELL GELLER, JANE Richards Ot M81.0 AGE-RELATED OSTEOPOROSIS W/O CURRENT PAT 10/26/2016 RUSSELL GELLER, JANE Richards Ot N18.9 CHRONIC KIDNEY DISEASE, UNSPECIFIED 10/26/2016 RUSSELL GELLER, JANE Richards Ot Z79.899 OTHER LONGTERM (CURRENT) DRUG THERAPY 12/01/2016 JANE WELLS MD Ot D69.6 THROMBOCYTOPENIA, UNSPECIFIED 12/01/2016 RUSSELL GELLER, JANE Richards Ot E83.52 HYPERCALCEMIA 12/01/2016 RUSSELL GELLER, JANE Richards Ot M81.0 AGE-RELATED OSTEOPOROSIS W/O CURRENT PAT 12/01/2016 JANE WELLS MD Ot N18.9 CHRONIC KIDNEY DISEASE, UNSPECIFIED 12/01/2016 RUSSELL GELLER, JANE Richards Ot Z79.899 OTHER LONGTERM (CURRENT) DRUG THERAPY 12/07/2016 JANE WELLS MD Ot D69.6 THROMBOCYTOPENIA, UNSPECIFIED 12/07/2016 JANE WELLS MD Ot E83.52 HYPERCALCEMIA 12/07/2016 JANE WELLS MD Ot M81.0 AGE-RELATED OSTEOPOROSIS W/O CURRENT PAT 12/07/2016 JANE WELLS MD Ot N18.9 CHRONIC KIDNEY DISEASE, UNSPECIFIED 12/07/2016 JANE WELLS MD Ot Z79.899 OTHER SHIP'S CARPENTER (CURRENT) DRUG THERAPY 12/08/2016 JANE WELLS MD, Ot D69.6 THROMBOCYTOPENIA, UNSPECIFIED 12/08/2016 JANE WELLS MD Ot E83.52 HYPERCALCEMIA 12/08/2016 JANE WELLS MD Ot M81.0 AGE-RELATED OSTEOPOROSIS W/O CURRENT PAT 12/08/2016 JANE WELLS MD Ot N18.9 CHRONIC KIDNEY DISEASE, UNSPECIFIED 12/08/2016 JANE WELLS MD Ot Z79.899 OTHER SHIP'S CARPENTER (CURRENT) DRUG THERAPY 01/23/2017 JANE WELLS MD Ot D69.6 THROMBOCYTOPENIA, UNSPECIFIED 01/23/2017 JANE WELLS MD Ot E83.52 HYPERCALCEMIA 01/23/2017 JANE WELLS MD Ot M81.0 AGE-RELATED OSTEOPOROSIS W/O CURRENT PAT 01/23/2017 JANE WELLS MD Ot N18.9 CHRONIC KIDNEY DISEASE, UNSPECIFIED 01/23/2017 JANE WELLS MD Ot Z79.899 OTHER SHIP'S CARPENTER (CURRENT) DRUG THERAPY 01/24/2017 JANE WELLS MD Ot D69.6 THROMBOCYTOPENIA, UNSPECIFIED 01/24/2017 RUSSELL GELLER, JANE Richards Ot E83.52 HYPERCALCEMIA 01/24/2017 RUSSELL GELLER, JANE Richards Ot M81.0 AGE-RELATED OSTEOPOROSIS W/O CURRENT PAT 01/24/2017 RUSSELL GELLER, JANE Richards Ot N18.9 CHRONIC KIDNEY DISEASE, UNSPECIFIED 01/24/2017 RUSSELL GELLER, JANE Richards Ot Z79.899 OTHER LONGTERM (CURRENT) DRUG THERAPY 02/16/2017 AUGUSTINE DUFFY BAG LOADER MACHINE OPERATOR Ot R31.9 HEMATURIA, UNSPECIFIED 03/03/2017 AUGUSTINE DUFFY BAG LOADER MACHINE OPERATOR Ot R31.9 HEMATURIA, UNSPECIFIED 07/04/2017 DANIELA GELLER, JAZZ Ot D69.6 THROMBOCYTOPENIA, UNSPECIFIED 07/04/2017 JAZZ SUAREZ MD Ot E83.52 HYPERCALCEMIA 07/04/2017 JAZZ SUAREZ MD Ot M81.0 AGE-RELATED OSTEOPOROSIS W/O CURRENT PAT 07/04/2017 JAZZ SUAREZ MD Ot N18.9 CHRONIC KIDNEY DISEASE, UNSPECIFIED 07/04/2017 JAZZ SUAREZ MD Ot Z79.899 OTHER SHIP'S CARPENTER (CURRENT) DRUG THERAPY 07/08/2017 JAZZ SUAREZ MD Ot D69.6 THROMBOCYTOPENIA, UNSPECIFIED 07/08/2017 JAZZ SUAREZ MD Ot E83.52 HYPERCALCEMIA 07/08/2017 JAZZ SUAREZ MD Ot M81.0 AGE-RELATED OSTEOPOROSIS W/O CURRENT PAT 07/08/2017 JAZZ SUAREZ MD Ot N18.9 CHRONIC KIDNEY DISEASE, UNSPECIFIED 07/08/2017 JAZZ SUAREZ MD Ot Z79.899 OTHER SHIP'S CARPENTER (CURRENT) DRUG THERAPY 09/11/2017 DILMA RAHMAN MD [...] ARTIFICIAL KNEE JOINT 09/17/2017 ALYSSA BATISTALUIS Meeks BAG LOADER MACHINE OPERATOR Ot Z96.652 PRESENCE OF LEFT ARTIFICIAL KNEE [...] R06.00 DYSPNEA, UNSPECIFIED 10/10/2017 ALYSSA BATISTALUIS Meeks BAG LOADER MACHINE OPERATOR Ot Z04.3 ENCOUNTER FOR EXAM AND OBSERVATION FOLLO 10/10/2017 ATTILA BATISTA Jeanna RODRIGUEZ Ot 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 RIGHT ARTIFICIAL KNEE JOINT 10/10/2017 LESTER ALYSSAMERT RODRIGUEZ Ot Z96.652 PRESENCE OF LEFT ARTIFICIAL KNEE JOINT 10/16/2017 BATISTA ALYSSALUIS Meeks BAG LOADER MACHINE OPERATOR Ot Z04.3 ENCOUNTER FOR EXAM AND OBSERVATION FOLLO 10/16/2017 LESTER ALYSSAMERT RODRIGUEZ Ot 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 RIGHT ARTIFICIAL KNEE JOINT 10/16/2017 LESTER ALYSSALUIS Meeks BAG LOADER MACHINE OPERATOR Ot Z96.652 PRESENCE OF LEFT ARTIFICIAL KNEE [...] Ot D64.9 ANEMIA, UNSPECIFIED 01/17/2018 HENRIETTA STACY LOAN PROCESSING SUPERVISOR Ot 724.2 LUMBAGO 01/17/2018 HENRIETTA STACY LOAN PROCESSING SUPERVISOR Ot V76.12 OTH SCREEN MAMMO-MALIGN NEOPLASM OF [place] 01/17/2018 AUGUSTINE DUFFY BAG LOADER MACHINE OPERATOR Ot R05 COUGH 01/17/2018 HENRIETTA STACY LOAN PROCESSING SUPERVISOR Ot R07.81 PLEURODYNIA 01/17/2018 FRANKY GELLER, ANTOINE Tran Ot Z12.31 ENCNTR SCREEN MAMMOGRAM FOR MALIGNANT NE 01/17/2018 AUGUSTINE DUFFY BAG LOADER MACHINE OPERATOR Ot R31.9 HEMATURIA, UNSPECIFIED 01/17/2018 JAZZ SUAREZ MD Ot D69.6 THROMBOCYTOPENIA, UNSPECIFIED 01/17/2018 DANIELA GELLER, JAZZ Ot E83.52 HYPERCALCEMIA 01/17/2018 JAZZ SUAREZ MD Ot M81.0 AGE-RELATED OSTEOPOROSIS W/O CURRENT PAT 01/17/2018 DANIELA GELLER, JAZZ Ot N18.9 CHRONIC KIDNEY DISEASE, UNSPECIFIED 01/17/2018 DANIELA GELLER, JAZZ Ot Z79.899 OTHER LONGTERM (CURRENT) DRUG THERAPY 01/17/2018 JOSIAH GELLER, DILMA Raza Ot R10.9 UNSPECIFIED ABDOMINAL PAIN 01/17/2018 DILMA RAHMAN MD Ot R11.2 NAUSEA WITH VOMITING, UNSPECIFIED 01/17/2018 DILMA RAHMAN MD Ot Z12.31 ENCNTR SCREEN MAMMOGRAM FOR MALIGNANT NE 01/17/2018 ATTILA BATISTA APRN Ot Z04.3 ENCOUNTER FOR EXAM AND OBSERVATION FOLLO 01/17/2018 ATTILA BATISTA BAG LOADER MACHINE OPERATOR Ot 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 RIGHT ARTIFICIAL KNEE [...] WELLS MD Ot 287.5 THROMBOCYTOPENIA NOS 01/17/2018 JNAE WELLS MD Ot 401.9 HYPERTENSION NOS 01/17/2018 RUSSELL GELLER, JANE Richards Ot 496 CHR AIRWAY OBSTRUCT NEC 01/17/2018 JANE WELLS MD Ot 733.00 OSTEOPOROSIS NOS 01/17/2018 JANE WELLS MD Ot V58.69 OTH MED,LT,CURRENT USE 01/17/2018 Ot V72.84 EXAM PRE- OPERATIVE NOS 01/17/2018 CORY GELLER, MORALES A Ot 599.70 HEMATURIA, UNSPECIFIED 01/17/2018 ANTOINE WILKINS MD A Ot D64.9 ANEMIA, UNSPECIFIED 01/17/2018 HENRIETTA STACY LOAN PROCESSING SUPERVISOR Ot 724.2 LUMBAGO 01/17/2018 HENRIETTA STACY LOAN PROCESSING SUPERVISOR Ot V76.12 OTH SCREEN MAMMO-MALIGN NEOPLASM OF [place] 01/17/2018 AUGUSTINE DUFFY BAG LOADER MACHINE OPERATOR Ot R05 COUGH 01/17/2018 HENRIETTA STACY LOAN PROCESSING SUPERVISOR Ot R07.81 PLEURODYNIA 01/17/2018 FRANKY GELLER, ANTOINE Tran Ot Z12.31 ENCNTR SCREEN MAMMOGRAM FOR MALIGNANT NE 01/17/2018 AUGUSTINE DUFFY BAG LOADER MACHINE OPERATOR Ot R31.9 HEMATURIA, UNSPECIFIED 01/17/2018 DANIELA GELLER, JAZZ Ot D69.6 THROMBOCYTOPENIA, UNSPECIFIED 01/17/2018 DANIELA GELLER, JAZZ Ot E83.52 HYPERCALCEMIA 01/17/2018 DANIELA GELLER, JAZZ Ot M81.0 AGE-RELATED OSTEOPOROSIS W/O CURRENT PAT 01/17/2018 DANIELA GELLER, JAZZ Ot N18.9 CHRONIC KIDNEY DISEASE, UNSPECIFIED 01/17/2018 DANIELA GELLER, JAZZ Ot Z79.899 OTHER LONGTERM (CURRENT) DRUG THERAPY 01/17/2018 JOSIAH GELLER, DILMA Raza Ot R10.9 UNSPECIFIED ABDOMINAL PAIN 01/17/2018 JOSIAH GELLER, DILMA Raza Ot R11.2 NAUSEA WITH VOMITING, UNSPECIFIED 01/17/2018 JSOIAH GELLER, DILMA Raza Ot Z12.31 ENCNTR SCREEN MAMMOGRAM FOR MALIGNANT NE 01/17/2018 ATTILA BATISTA BAG LOADER MACHINE OPERATOR Ot Z04.3 ENCOUNTER FOR EXAM AND OBSERVATION FOLLO 01/17/2018 ATTILA BATISTA BAG LOADER MACHINE OPERATOR Ot 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 RIGHT ARTIFICIAL KNEE JOINT 01/17/2018 ATTILA BATISTA BAG LOADER MACHINE OPERATOR Ot Z96.652 PRESENCE OF LEFT ARTIFICIAL KNEE [...] Ot D64.9 ANEMIA, UNSPECIFIED 01/17/2018 HENRIETTA STACY LOAN PROCESSING SUPERVISOR Ot 724.2 LUMBAGO 01/17/2018 HENRIETTA STACY LOAN PROCESSING SUPERVISOR Ot V76.12 OTH SCREEN MAMMO-MALIGN NEOPLASM OF [place] 01/17/2018 UAGUSTINE DUFFY BAG LOADER MACHINE OPERATOR Ot R05 COUGH 01/17/2018 HENRIETTA STACY LOAN PROCESSING SUPERVISOR Ot R07.81 PLEURODYNIA 01/17/2018 ANTOINE WILKINS MD Ot Z12.31 ENCNTR SCREEN MAMMOGRAM FOR MALIGNANT NE 01/17/2018 AUGUSTINE DUFFY BAG LOADER MACHINE OPERATOR Ot R31.9 HEMATURIA, UNSPECIFIED 01/17/2018 JAZZ SUAREZ MD Ot D69.6 THROMBOCYTOPENIA, UNSPECIFIED 01/17/2018 JAZZ SUAREZ MD Ot E83.52 HYPERCALCEMIA 01/17/2018 JAZZ SUAREZ MD Ot M81.0 AGE-RELATED OSTEOPOROSIS W/O CURRENT PAT 01/17/2018 JAZZ SUAREZ MD Ot N18.9 CHRONIC KIDNEY DISEASE, UNSPECIFIED 01/17/2018 JAZZ SUAREZ MD Ot Z79.899 OTHER SHIP'S CARPENTER (CURRENT) DRUG THERAPY 01/17/2018 JOSIAH GELLER, DILMA [...] Ot D64.9 ANEMIA, UNSPECIFIED 01/17/2018 HENRIETTA STACY LOAN PROCESSING SUPERVISOR Ot 724.2 LUMBAGO 01/17/2018 HENRIETTA STACY LOAN PROCESSING SUPERVISOR Ot V76.12 OTH SCREEN MAMMO-MALIGN NEOPLASM OF [place] 01/17/2018 AUGUSTINE DUFFY BAG LOADER MACHINE OPERATOR Ot R05 COUGH 01/17/2018 HENRIETTA STACYP Ot R07.81 PLEURODYNIA 01/17/2018 ANTOINE WILKINS MD Ot Z12.31 ENCNTR SCREEN MAMMOGRAM FOR MALIGNANT NE 01/17/2018 AUGUSTINE DUFFY BAG LOADER MACHINE OPERATOR Ot R31.9 HEMATURIA, UNSPECIFIED 01/17/2018 JAZZ SUAREZ MD Ot D69.6 THROMBOCYTOPENIA, UNSPECIFIED 01/17/2018 JAZZ SUAREZ MD Ot E83.52 HYPERCALCEMIA 01/17/2018 JAZZ SUAREZ MD Ot M81.0 AGE-RELATED OSTEOPOROSIS W/O CURRENT PAT 01/17/2018 JAZZ SUAREZ MD Ot N18.9 CHRONIC KIDNEY DISEASE, UNSPECIFIED 01/17/2018 JAZZ SUAREZ MD Ot Z79.899 OTHER SHIP'S CARPENTER (CURRENT) DRUG THERAPY 01/17/2018 JOSIAH GELLER, DILMA Raza Ot R10.9 UNSPECIFIED ABDOMINAL PAIN 01/17/2018 DILMA RAHMAN MD Ot R11.2 NAUSEA WITH VOMITING, UNSPECIFIED 01/17/2018 JOSIAH GELLER, DILMA Raza Ot Z12.31 ENCNTR SCREEN MAMMOGRAM FOR MALIGNANT NE 01/17/2018 ATTILA BATISTA APRN Ot Z04.3 ENCOUNTER FOR EXAM AND OBSERVATION FOLLO 01/17/2018 ATTILA BATISTA APRN Ot 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 RIGHT ARTIFICIAL KNEE JOINT 01/17/2018 ATTILA BATISTA BAG LOADER MACHINE OPERATOR Ot Z96.652 PRESENCE OF LEFT ARTIFICIAL KNEE [...] 789.00 ABDOMINAL PAIN, UNSPECIFIED SITE 01/18/2018 ANTOINE WILKINS MD Ot 791.9 ABN URINE [...] Ot D64.9 ANEMIA, UNSPECIFIED 01/18/2018 HENRIETTA STACY LOAN PROCESSING SUPERVISOR Ot 724.2 LUMBAGO 01/18/2018 HENRIETTA STACY LOAN PROCESSING SUPERVISOR Ot V76.12 OTH SCREEN MAMMO-MALIGN NEOPLASM OF [place] 01/18/2018 AUGUSTINE DUFFY BAG LOADER MACHINE OPERATOR Ot R05 COUGH 01/18/2018 HENRIETTA STACY LOAN PROCESSING SUPERVISOR Ot R07.81 PLEURODYNIA 01/18/2018 FRANKY GELLER, ANTOINE Tran Ot Z12.31 ENCNTR SCREEN MAMMOGRAM FOR MALIGNANT NE 01/18/2018 AUGUSTINE DUFFY BAG LOADER MACHINE OPERATOR Ot R31.9 HEMATURIA, UNSPECIFIED 01/18/2018 JAZZ SUAREZ MD Ot D69.6 THROMBOCYTOPENIA, UNSPECIFIED 01/18/2018 JAZZ SUAREZ MD Ot E83.52 HYPERCALCEMIA 01/18/2018 JAZZ SUAREZ MD Ot M81.0 AGE-RELATED OSTEOPOROSIS W/O CURRENT PAT 01/18/2018 JAZZ SUAREZ MD Ot N18.9 CHRONIC KIDNEY DISEASE, UNSPECIFIED 01/18/2018 JAZZ SUAREZ MD Ot Z79.899 OTHER LONGTERM (CURRENT) DRUG THERAPY 01/18/2018 JOSIAH GELLER, DILMA [...] F32.9 MAJOR DEPRESSIVE DISORDER, SINGLE EPISOD 01/19/2018 SFOIA GIPSON APRN Ot F41.9 ANXIETY DISORDER, UNSPECIFIED [...] 04/01/2018 JAZZ SUAREZ MD Ot Z79.899 OTHER LONGTERM (CURRENT) DRUG THERAPY 04/02/2018 JAZZ SUAREZ MD Ot D69.6 THROMBOCYTOPENIA, UNSPECIFIED 04/02/2018 JAZZ SUAREZ MD Ot E83.52 HYPERCALCEMIA 04/02/2018 DANIELA GELLER, JAZZ Ot M81.0 AGE-RELATED OSTEOPOROSIS W/O CURRENT PAT 04/02/2018 DANIELA GELLER, JAZZ Ot N18.9 CHRONIC KIDNEY DISEASE, UNSPECIFIED 04/02/2018 DANIELA GELLER, JAZZ Ot Z79.899 OTHER SHIP'S CARPENTER (CURRENT) DRUG THERAPY 05/01/2018 NINI GELLER, MARBELLA Mathur Ot Z01.818 ENCOUNTER FOR OTHER PREPROCEDURAL EXAMIN 05/01/2018 NINI GELLER, MARBELLA Mathur Ot Z01.818 ENCOUNTER FOR OTHER PREPROCEDURAL EXAMIN 05/02/2018 NINI GELLER, MARBELLA Mtahur Ot Z01.818 ENCOUNTER FOR OTHER PREPROCEDURAL EXAMIN [...] MORALES Tran Ot 599.70 HEMATURIA, UNSPECIFIED 05/04/2018 FRAKNY GELLER, ANTOINE Tran Ot D64.9 ANEMIA, UNSPECIFIED 05/04/2018 HENRIETTA STACY LOAN PROCESSING SUPERVISOR Ot 724.2 LUMBAGO 05/04/2018 HENRIETTA STACY LOAN PROCESSING SUPERVISOR Ot V76.12 OTH SCREEN MAMMO-MALIGN NEOPLASM OF G[place] 05/04/2018 AUGUSTINE DUFFY BAG LOADER MACHINE OPERATOR Ot R05 COUGH 05/04/2018 HENRIETTA STACY LOAN PROCESSING SUPERVISOR Ot R07.81 PLEURODYNIA 05/04/2018 FRANKY GELLER, ANTOINE Tran Ot Z12.31 ENCNTR SCREEN MAMMOGRAM FOR MALIGNANT NE 05/04/2018 AUGUSTINE DUFFY BAG LOADER MACHINE OPERATOR Ot R31.9 HEMATURIA, UNSPECIFIED 05/04/2018 JOSIAH GELLER, DILMA Raza Ot R10.9 UNSPECIFIED ABDOMINAL PAIN 05/04/2018 JOSIAH GELLER, DILMA Raza Ot R11.2 NAUSEA WITH VOMITING, UNSPECIFIED 05/04/2018 JOSIAH GELLER, DILMA Raza Ot Z12.31 ENCNTR SCREEN MAMMOGRAM FOR MALIGNANT NE 05/04/2018 ATTILA BATISTA BAG LOADER MACHINE OPERATOR Ot Z04.3 ENCOUNTER FOR EXAM AND OBSERVATION FOLLO 05/04/2018 ATTILA BATISTA BAG LOADER MACHINE OPERATOR Ot 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 RIGHT ARTIFICIAL KNEE JOINT 05/04/2018 ATTILA BATISTA BAG LOADER MACHINE OPERATOR Ot Z96.652 PRESENCE OF LEFT ARTIFICIAL KNEE [...] 05/04/2018 JAZZ SUAREZ MD Ot Z79.899 OTHER SHIP'S [employer]PENTER (CURRENT) DRUG THERAPY 05/10/2018 MAURICIO GUSMAN MD [...] 10/12/2018 JAZZ SUAREZ MD Ot Z79.899 OTHER LONGTERM (CURRENT) DRUG THERAPY 10/15/2018 RIZWAN VIDAL MD, [...] ABSENCE OF OTHER SPECIFIED PART 10/15/2018 RIZWAN VDIAL MD, Ot Z96.641 PRESENCE OF RIGHT ARTIFICIAL HIP JOINT 10/15/2018 RIZWAN VIDAL MD, Ot Z96.653 PRESENCE OF ARTIFICIAL KNEE JOINT, BILAT 10/15/2018 RIZWAN VIDAL MD, Ot Z99.81 DEPENDENCE ON SUPPLEMENTAL OXYGEN Procedures Code Description Performed By Performed On 78.65 REMOVE INT FIX DEV-FEMUR 08/21/2014 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 08/21/2014 [id number] REPOSITION L FEMUR SHAFT WITH INTRAMED F 08/07/2015 [id number] REPOSITION RIGHT LOWER FEMUR WITH INT FI [...] ABO+Rh group AP NRG Transfusion band number [id number] NRG Blood group antibody screen NEGATIVE NRG [...] culture - 02/10/17 18:35 Bacterial urine culture [id number] NRG COLONY COUNT >100,000/ML NRG FTX;REPORTABLE SENSITIVITY [...] culture - 01/17/18 20:05 Bacterial urine culture [id number] NRG COLONY COUNT >100,000/ML NRG FTX;REPORTABLE SENSITIVITY [...] plasma calcium measurement (mass/volume) 7.6 mg/dL 8.5-10.1 Complete blood count (CBC) with automated white blood cell (WBC) differential - 11/04/18 21:30 Blood leukocytes automated count (number/volume) 6.3 10*3/uL 4.3-11.0 Blood erythrocytes automated count (number/volume) 3.96 10*6/uL 4.35-5.85 Venous blood hemoglobin measurement (mass/volume) 11.7 g/dL 11.5-16.0 Blood hematocrit (volume fraction) 39 % 35-52 Automated erythrocyte mean corpuscular volume 98 [foz_us] 80-99 Automated erythrocyte mean corpuscular hemoglobin (mass per erythrocyte) 30 pg 25-34 Automated erythrocyte mean corpuscular hemoglobin concentration measurement ( mass/volume) 30 g/dL 32-36 Automated erythrocyte distribution width ratio 15.0 % 10.0-14.5 Automated blood platelet count (count/volume) 94 10*3/uL 130-400 Automated blood platelet mean volume measurement 13.1 [foz_us] 7.4-10.4 Automated blood neutrophils/100 leukocytes 52 % 42-75 Automated blood lymphocytes/100 leukocytes 39 % 12-44 Blood monocytes/100 leukocytes 7 % 0-12 Automated blood eosinophils/100 leukocytes 1 % 0-10 Automated blood basophils/100 leukocytes 0 % 0-10 Blood neutrophils automated count (number/volume) 3.3 10*3 1.8-7.8 Blood lymphocytes automated count (number/volume) 2.5 10*3 1.0-4.0 Blood monocytes automated count (number/volume) 0.4 10*3 0.0-1.0 Automated eosinophil count 0.1 10*3/uL 0.0-0.3 Automated blood basophil count (count/volume) 0.0 10*3/uL 0.0-0.1 PT panel in platelet poor plasma by coagulation assay - 11/04/18 21:30 Prothrombin time (PT) in platelet poor plasma by coagulation assay 32.2 s 12.2-14.7 INR in platelet poor plasma or blood by coagulation assay 3.1 0.8-1.4 Activated partial thromboplastin time (aPTT) in platelet poor plasma bycoagulation assay - 11/04/18 21:30 Activated partial thromboplastin time (aPTT) in platelet poor plasma bycoagulation assay 40 s 24-35 Blood lactic acid measurement (moles/volume) - 11/04/18 21:30 Blood lactic acid measurement (moles/volume) 1.64 mmol/L 0.50-2.00 Comprehensive metabolic panel - 11/04/18 21:30 Serum or plasma sodium measurement (moles/volume) 142 mmol/L 135-145 Serum or plasma potassium measurement (moles/volume) 4.1 mmol/L 3.6-5.0 Serum or plasma chloride measurement (moles/volume) 101 mmol/L 98-107 Carbon dioxide 31 mmol/L 21-32 Serum or plasma anion gap determination (moles/volume) 10 mmol/L 5-14 Serum or plasma urea nitrogen measurement (mass/volume) 22 mg/dL 7-18 Serum or plasma creatinine measurement (mass/volume) 1.12 mg/dL 0.60-1.30 Serum or plasma urea nitrogen/creatinine mass ratio 20 NRG Serum or plasma creatinine measurement with calculation of estimated glomerular filtration rate 46 NRG Serum or plasma glucose measurement (mass/volume) 113 mg/dL 70-105 Serum or plasma calcium measurement (mass/volume) 8.9 mg/dL 8.5-10.1 Serum or plasma total bilirubin measurement (mass/volume) 0.6 mg/dL 0.1-1.0 Serum or plasma alkaline phosphatase measurement (enzymatic activity/volume) 133 U/L 40-136 Serum or plasma aspartate aminotransferase measurement (enzymatic activity/ volume) 32 U/L 5-34 Serum or plasma alanine aminotransferase measurement (enzymatic activity/volume ) 18 U/L 0-55 Serum or plasma protein measurement (mass/volume) 5.9 g/dL 6.4-8.2 Serum or plasma albumin measurement (mass/volume) 3.0 g/dL 3.2-4.5 CALCIUM CORRECTED 9.7 mg/dL 8.5-10.1 Magnesium - 11/04/18 21:30 Magnesium 1.6 mg/dL 1.8-2.4 Serum or plasma creatine kinase measurement (enzymatic activity/volume) - 11/04 21:30 Serum or plasma creatine kinase measurement (enzymatic activity/volume) 56 U/L 29-168 Serum or plasma creatine kinase MB measurement (enzymatic activity/volume) - 21:30 Serum or plasma creatine kinase MB measurement (enzymatic activity/volume) 2.9 ng/mL <6.6 Serum or plasma lithium measurement (moles/volume) - 11/04/18 21:30 BNP level 121.8 pg/mL <100.0 Serum or plasma troponin i.cardiac measurement (mass/volume) - 11/04/18 21:30 Serum or plasma troponin i.cardiac measurement (mass/volume) < ng/ mL <0.028 Myoglobin, serum - 11/04/18 21:30 Myoglobin, serum 94.4 ng/mL 10.0-92.0 Lipase - 11/04/18 21:30 Lipase 11 U/L 8-78 Serum or plasma thyrotropin measurement by detection limit <=0.05 miu/l (units/ volume) - 11/04/18 21:30 Serum or plasma thyrotropin measurement by detection limit <=0.05 miu/l (units/ volume) 3.66 u[iU]/mL 0.35-4.94 Influenza virus A and B antigen detection - 11/04/18 21:32 FLU RESULT NEGATIVE FOR INFLUENZA A AND B ANTIGENS BY IA NRG Arterial blood gas measurement - 11/04/18 21:48 Blood pCO2 52 mm[Hg] 35-45 Blood pO2 127 mm[Hg] 79-93 Arterial blood bicarbonate measurement (moles/volume) 31 mmol/L 23-27 Arterial blood base excess by calculation 6.4 mmol/L -2.5 -2.5 Arterial blood oxygen saturation measurement 99 % 94-100 * Inhaled oxygen flow rate 10L NRG Arterial blood pH measurement with patient temperature correction 7.39 7.37-7.43 Arterial blood carbon dioxide, total measurement (moles/volume) 33.0 mmol/L 21.0-31.0 Body site RIGHT BRACHIAL NRG Assessment of wrist artery patency prior to arterial puncture NA NRG Setting of ventilation mode NO NRG Measurement of body temperature 97.5 NRG Encounters ACCT No. Visit Date/Time Discharge Status Pt. Type Provider Facility Loc./Unit Complaint [id number] 10/22/2018 15:48:00 10/22/2018 23:59:59 CLS Preadmit JOSIAH GELLER, DILMA Raza [facility] RAD SCREENING [id number] 10/12/2018 17:00:00 10/15/2018 15:40:00 DIS Inpatient RIZWAN VIDAL MD [facility] 4TH TRANSIENT HYPOTENSION HYPOXIA [id number] 05/01/2018 11:00:00 05/01/2018 15:10:00 DIS Outpatient MARBELLA TERRAZAS MD [facility] PREOP COLONOSCOPY [id number] 04/02/2018 00:09:00 04/02/2018 23:59:59 CLS Preadmit JAZZ SUAREZ MD [facility] ONC [id number] 01/01/2018 13:04:00 04/01/2018 00:01:00 DIS Outpatient JAZZ SUAREZ MD [facility] ONC [id number] 03/02/2018 19:08:00 03/03/2018 13:25:00 DIS Inpatient MAURICIO GUSMAN MD [facility] 4TH CONFUSION/UTI [id number] 02/26/2018 11:20:00 02/26/2018 23:59:59 CLS Outpatient KARAN VIVEROS MD [facility] CARD R00.1 BRADYCARDIA [id number] 02/12/2018 07:18:00 02/12/2018 23:59:59 CLS Outpatient KARAN VIVEROS MD [facility] CARD R00.1 BRADYCARDIA [id number] 01/17/2018 17:42:00 01/17/2018 22:07:00 DIS Emergency 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 [facility] ER FALL;DIZZINESS [id number] 09/13/2017 15:02:00 09/13/2017 23:59:59 CLS Outpatient DILMA RAHMAN MD [facility] RAD R06.09 [id number] 09/11/2017 11:03:00 09/11/2017 23:59:59 CLS Outpatient ATTILA BATISTA BAG LOADER MACHINE OPERATOR [facility] RAD KNEE PAIN M25.561 [id number] 09/11/2017 10:59:00 09/11/2017 23:59:59 CLS Outpatient DILMA RAHMAN MD [facility] RAD R10.9 UNSPECIFIED ABDOMINAL PAIN [id number] 09/08/2017 12:22:00 09/08/2017 23:59:59 CLS Outpatient DILMA RAHMAN MD [facility] RAD MAMMO SCREENING [id number] 09/05/2017 15:51:00 09/05/2017 23:59:59 CLS Preadmit DILMA RAHMAN MD [facility] RAD Z12.31 SCREENING FOR MALIGNANT NEOPLASM OF BREAST [id number] 07/03/2017 13:24:00 07/08/2017 00:01:00 DIS Outpatient JAZZ SUAREZ MD [facility] ONC [id number] 02/10/2017 18:08:00 02/10/2017 23:59:59 CLS Outpatient AUGUSTINE DUFFY APRN [facility] LAB HEMATURIA [id number] 12/26/2016 13:46:00 01/23/2017 00:01:00 DIS Outpatient JANE WELLS MD [facility] ONC [id number] 09/26/2016 12:52:00 09/30/2016 12:10:00 DIS Inpatient KASHMIR WALKER MD [facility] 4TH F FEMER FX, ARF [id number] 08/02/2016 12:56:00 08/02/2016 23:59:59 CLS Outpatient ANTOINE WILKINS MD [facility] RAD SCREENING [id number] 04/06/2016 10:53:00 07/05/2016 00:01:00 DIS Outpatient JANE WELLS MD [facility] ONC [id number] 01/14/2016 16:04:00 01/14/2016 23:59:59 CLS Outpatient HENRIETTA STACY [facility] RAD R RIB PAIN [id number] 10/07/2015 13:47:00 01/05/2016 00:01:00 DIS Outpatient JANE WELLS MD [facility] ONC [id number] 11/02/2015 13:48:00 11/02/2015 23:59:59 CLS Outpatient AUGUSTINE DUFFY APRN [facility] RAD COUGH,ASPIRATION [id number] 08/13/2015 11:15:00 08/13/2015 23:59:59 CLS Outpatient ANTOINE WILKINS MD [facility] HH ANEMIA, FX FEMUR, TKR [id number] 08/06/2015 22:09:00 08/10/2015 13:50:00 DIS Inpatient KASHMIR WALKER MD [facility] 4TH LEFT DISTAL FEMUR FX, DIZZINESS [id number] 04/08/2015 12:52:00 07/07/2015 00:01:00 DIS Outpatient JANE WELLS MD [facility] ONC [id number] 06/24/2015 11:34:00 06/24/2015 23:59:59 CLS Outpatient HENRIETTA STACY [facility] RAD SCREENING,LOW BACK PAIN [id number] 02/18/2015 09:59:00 02/18/2015 23:59:59 CLS Outpatient MORALES RAY MD [facility] RAD HEMATURIA [id number] 11/19/2014 13:20:00 11/19/2014 23:59:59 CLS Outpatient JANE WELLS MD [facility] ONC [id number] 08/30/2014 14:11:00 08/30/2014 23:59:59 CLS Outpatient ANTOINE WILKINS MD [facility] CVS UTI FOLLOW UP [id number] 08/21/2014 10:10:00 08/25/2014 12:05:00 DIS Inpatient KASHMIR WALKER MD [facility] SURGICAL OSTEOARTHRITIS; PAINFUL HARDWARE [id number] 08/11/2014 11:45:00 08/11/2014 23:59:59 CLS Outpatient KASHMIR WALKER MD [facility] PREOP OSTEOARTHRITIS; PAINFUL HARDWARE [id number] 06/04/2014 10:32:00 06/04/2014 23:59:59 CLS Outpatient JANE WELLS MD [facility] ONC [id number] 03/21/2014 10:54:00 03/21/2014 23:59:59 CLS Outpatient KASHMIR WALKER MD [facility] CARD SCREENING [id number] 03/20/2014 09:42:00 03/20/2014 23:59:59 CLS Outpatient HENRIETTA STACY [facility] RAD SCREENING [id number] 12/04/2013 09:52:00 02/04/2014 00:01:00 DIS Outpatient JANE WELLS MD [facility] ONC [id number] 01/17/2014 22:10:00 01/17/2014 23:59:59 CLS Outpatient ANTOINE WILKINS MD [facility] CVS R/O UTI, C/O STOMACH PAIN [id number] 08/01/2013 12:36:00 10/09/2013 00:01:00 DIS Outpatient JANE WELLS MD [facility] ONC [id number] 07/10/2013 15:29:00 07/10/2013 23:59:59 CLS Outpatient [id number] 06/12/2013 14:35:00 06/12/2013 23:59:59 CLS Outpatient [id number] 05/22/2013 14:56:00 05/22/2013 23:59:59 CLS Outpatient [id number] 05/21/2013 23:16:00 05/21/2013 23:59:59 CLS Outpatient [id number] 05/02/2013 01:10:00 05/07/2013 13:30:00 DIS Inpatient ANTOINE WILKINS MD [facility] SURGICAL L TIBIA FRACTURE, UTI, DEHYDRATION [id number] 04/25/2013 14:28:00 04/25/2013 22:00:00 DIS Outpatient ANTOINE WILKINS MD [facility] SDC HYPOTENSION [id number] 03/15/2013 13:26:00 03/15/2013 23:59:59 CLS Outpatient ANTOINE WILKINS MD [facility] RAD SCREENING [id number] 03/01/2013 17:34:00 03/04/2013 14:40:00 DIS Inpatient ANTOINE WILKINS MD [facility] 4TH N/V,VOLUME DEPLETION [id number] 11/04/2018 21:43:00 Document Registration [id number] 05/07/2018 10:20:00 ACT Inpatient MAURICIO GUSMAN MD [facility] 4TH AMS,DEHYDRATION,HYPOKALEMAI,AC[place] [id number] 05/04/2018 09:15:00 Document Registration [id number] 06/24/2015 11:31:00 Document Registration [id number] 06/24/2015 11:31:00 Document Registration [id number] 06/24/2015 11:31:00 Document Registration [id number] 06/24/2015 11:31:00 Document Registration [id number] 12/08/2014 08:36:00 Document Registration [id number] 12/02/2014 14:58:00 Document Registration [id number] 10/30/2012 10:33:00 Document Registration [id number] 10/18/2012 10:39:00 Document Registration [id number] 10/16/2012 09:55:00 Document Registration [id number] 10/16/2012 09:41:00 Document Registration [id number] 03/29/2012 09:57:00 Document Registration [id number] 01/14/2012 20:57:00 Document Registration [id number] 01/09/2012 08:32:00 Document Registration [id number] 10/28/2011 10:48:00 Document Registration [id number] 12/09/2010 15:29:00 Document Registration [id number] 11/04/2010 10:34:00 Document Registration [id number] 08/23/2017 23:35:27 08/23/2017 23:59:59 Antoine Johnson [email or web address] 06/24/2015 11:36:17 ACT Document Registration
[2018-11-04 23:58] LABS: BACTERIA,URINE LARGE /HPF; SQUAMOUS EPITHELIAL CELL,UR 0-2 /HPF
[2018-11-05] VITALS (26 sets, daily range): BP systolic 88–131; BP diastolic 40–99
[2018-11-05] MEDS ORDERED: fentaNYL INJECTION 100 MCG/2 ML AMP ONE (00:20)
[2018-11-05] MEDS: MAGNESIUM 1 GM/100 ML IVPB 100 ML IV SCH (00:42)
[2018-11-05] MEDS ORDERED: fentaNYL INJECTION 100 MCG/2 ML AMP IV PRN (01:30)
[2018-11-05] MEDS: D5 1/2 NS W/KCL 20 MEQ/L 1,000 ML IV SCH ×3 (01:55→22:37)
[2018-11-05 03:29] LABS: BASOPHILS % (AUTO) 0 % (0-10); EOSINOPHILS % (AUTO) 0 % (0-10); HEMATOCRIT 36 % (35-52); HEMOGLOBIN 10.9 G/DL (11.5-16.0); LYMPHOCYTES # (AUTO) 0.6 X 10^3 (1.0-4.0); LYMPHOCYTES % (AUTO) 4 % (12-44); MEAN CORPUSCULAR HEMOGLOBIN 29 PG (25-34); MEAN CORPUSCULAR HGB CONC 30 G/DL (32-36); MEAN CORPUSCULAR VOLUME 97 FL (80-99); MEAN PLATELET VOLUME 11.9 FL (7.4-10.4); MONOCYTES # (AUTO) 0.7 X 10^3 (0.0-1.0); MONOCYTES % (AUTO) 5 % (0-12); NEUTROPHILS # (AUTO) 12.9 X 10^3 (1.8-7.8); NEUTROPHILS % (AUTO) 91 % (42-75); PLATELET COUNT 111 10^3/uL (130-400); RED CELL DISTRIBUTION WIDTH 15.4 % (10.0-14.5); WHITE BLOOD COUNT 14.2 10^3/uL (4.3-11.0)
[2018-11-05 04:00] LABS: ALBUMIN 2.7 GM/DL (3.2-4.5); BILIRUBIN,TOTAL 0.7 MG/DL (0.1-1.0); CALCIUM 8.5 MG/DL (8.5-10.1); CREATININE SERUM 1.26 MG/DL (0.60-1.30); TOTAL PROTEIN 5.3 GM/DL (6.4-8.2)
--- NOTE | 2018-11-05 04:22 | ED Fall/Injury ---
General Chief Complaint: Trauma-Non Activation Stated Complaint: HYPOXIA,S/P FALL,BILAT TIB-FIB FX,RECENT DVT L LEG Nursing Triage Note: TO ED VIA EMS. PT STATES SHE TRIED TO GET UP OUT OF BED AND FELT DIZZY AND FELL DOWN. DENIES HITTING HEAD OR LOC. PAIN TO BILAT LEGS. STATES SHE WAS RECENTLY HOSPITALIZED AT BEGINNING OF OCTOBER FOR DVT IN BLE. WEARS O2 AT NOC AT HOME. ON ROOM AIR UPON ARRIVAL, O2 SAT 73% AND IMMEDIATELY PLACED ON 10L O2 VIA OXYMASK. EMS PROVIDER STATES, "HER HANDS WERE COLD AND I COULDN'T GET A READING." Source: patient (LIMITED HISTORIAN), EMS History of Present Illness Date Seen by Provider: Nov 04, 2018 Time Seen by Provider: 21:05 Initial Comments PT ARRIVES VIA EMS FROM HOME PT STATES SHE WAS IN BED AND GOT UP AND GOT DIZZY AND FELL. OCCURRED JUST PRIOR TO ARRIVAL STATES SHE TRIED TO CATCH HERSELF AND LANDED DIRECTLY ON BOTH OF HER KNEES PT STATES SHE WAS NOT ABLE TO GET UP OR BEAR WEIGHT ON EITHER LEG. DID NOT HIT HEAD AND DENIES LOSS OF CONSCIOUSNESS/ PASSING OUT THIS WAS NOT WITNESSED BY ANYONE. PT DOES LIVE WITH HER DAUGHTER, WHO IS HER "POWER NUT RUNNER OPERATOR" --PT STATES HER DAUGHTER IS IN A WHEELCHAIR AND HAS CANCER AND HAS A POWER NUT RUNNER OPERATOR OF HER OWN. PT STATES THAT POWER NUT RUNNER OPERATOR HELPS THEM BOTH. C/O PAIN FROM MID THIGHS DOWN TO ANKLES BILATERALLY PT STATES SHE HAS BEEN HAVING THIS PROBLEM OF GETTING DIZZY AND FALLING. PT STATES SHE DID THE SAME THING YESTERDAY BUT DID NOT HURT HERSELF. PT WAS ADMITTED HERE 10/12 FOR SAME. PT WAS NOTED TO BE HYPOXIC AT THAT TIME. PT STATES SHE WEARS OXYGEN AT NIGHT. EMS WERE NOT ABLE TO OBTAIN AN O2 SAT PT WAS FOUND TO HAVE DVT OF LEFT LEG/ LEFT COMMON FEMORAL VEIN. CT CHEST ANGIOGRAM WAS NEGATIVE AT THAT TIME. PT IS CURRENTLY ON XARELTO. PT DENIES CHEST PAIN DENIES SHORTNESS OF BREATH DENIES PALPITATIONS DENIES FEVER/SWEATS/CHILLS DENIES COUGH STATES SHE HAS OCCASIONAL NUMBNESS IN HER FEET NORMALLY, DENIES ANY NUMBNESS AT THIS TIME. PT HAS HAD BILATERAL KNEE REPLACEMENTS, BILATERAL FEMUR FRACTURES WITH ORIF AND LEFT HIP REPLACEMENT. PT HAS CHRONIC GENERALIZED PAIN AND TAKES MORPHINE 30 MG BID. TOOK A DOSE AFTER SHE FELL PCP: DR. RAHMAN GLOVE BOARDER: DR. VIVEROS Allergies and Home Medications Allergies Coded Allergies: adhesive tape (Verified Allergy, Mild, RASH, 10/12/18) aspirin (Verified Allergy, Unknown, 10/12/18) meperidine (Verified Allergy, Unknown, 10/12/18) nitrofurantoin (Verified Allergy, Unknown, 10/12/18) Uncoded Allergies: SURGICAL TAPE (Allergy, Unknown, 05/14/07) Home Medications Calcium Carbonate/Vitamin D3 1 Each Tablet, 1 TAB PO BID, (Reported) Diclofenac Sodium 100 Gm Gel..gram., TP BID PRN for JOINT PAIN, (Reported) Famotidine 20 Mg Tablet, 20 MG PO BID, (Reported) Fesoterodine Fumarate 8 Mg Tab.er.24h, 8 MG PO HS, (Reported) Fluoxetine HCl 20 Mg Capsule, 20 MG PO DAILY, (Reported) Gabapentin 300 Mg Capsule, 300 MG PO BID, (Reported) Hydrocodone/Acetaminophen 1 Each Tablet, 1 TAB PO Q6H PRN for PAIN-MODERATE, ( Reported) Hydrocortisone 28.35 Gm Cream.appl, TOP QID PRN for HEMORRHOIDS, (Reported) Loteprednol Etabonate 5 Gm Drops.gel, 1 DROP OD DAILY, (Reported) Montelukast Sodium 10 Mg Tablet, 10 MG PO DAILY, (Reported) Morphine Sulfate 30 Mg Tablet.er, 30 MG PO BID, (Reported) Ondansetron 8 Mg Tab.rapdis, 8 MG PO Q8H PRN for NAUSEA/VOMITING-1ST LINE, ( Reported) Polyethylene Glycol 3350 17 Gm Powd.pack, 17 GM PO DAILY PRN for CONSTIPATION- 2ND LINE, (Reported) Polyvinyl Alcohol/Povidone 15 Ml Drops, 1 DROP OS DAILY, (Reported) Rivaroxaban 20 Mg Tablet, 20 MG PO DAILY@1700 Prescribed by: MAURICIO GUSMAN on 10/15/18 1020 Saliva Stimulant Agents Comb.3 1 Each Reliance, 1 SPRAY MM BID PRN for DRY MOUTH, ( Reported) Sucralfate 1 Gm Tablet, 1 GM PO BID, (Reported) Patient Home Medication List Home Medication List Reviewed: Yes Review of Systems Review of Systems Constitutional: see HPI, dizziness, weight loss (HAS LOST 175#, BUT UNABLE TO STATE WHEN THIS OCCURED OR IF INTENTIONAL. ) Eyes: No Symptoms Reported Ears, Nose, Mouth, Throat: no symptoms reported Respiratory: no symptoms reported Cardiovascular: no symptoms reported Gastrointestinal: no symptoms reported Genitourinary: no symptoms reported Musculoskeletal: see HPI Skin: no symptoms reported Psychiatric/Neurological: See HPI; Denies Headache; Paresthesia Past Mgqpwxs-Inwpej-Teleep Hx Patient Social History Alcohol Use: Denies Use Recreational Drug Use: No Smoking Status: Never a Smoker 2nd Hand Smoke Exposure: No Recent Foreign Travel: No Contact w/Someone Who Travel: No Recent Infectious Disease Expo: No Recent Hopitalizations: Yes (OCT 12) Physical Abuse: No Sexual Abuse: No Mistreated: No Fear: No Immunizations Up To Date Tetanus Booster (TDap): Less than 5yrs Date of Pneumonia Vaccine: Jul 09, 2018 Date of Influenza Vaccine: Jul 09, 2018 Seasonal Allergies Seasonal Allergies: No Past Medical History Surgeries: Yes (HIATAL HERNIA SX, COLON MASS REMOVED; LEFT HIP REPLACEMENT; BILATERAL KNEE REPLACEMENTS; BILATERAL FEMUR FX/ORIF'S ) Abdominal, Bowel Surgery, Joint Replacement, Orthopedic Respiratory: Yes (OXYGEN AT HS) COPD, Emphysema Cardiac: Yes Deep Vein Thrombosis, Hypertension Neurological: No 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 Disorders: No Genitourinary: Yes Renal Failure, UTI-Chronic Gastrointestinal: Yes (COLON RESECTION) Gastroesophageal Reflux, Hiatal Hernia Musculoskeletal: Yes (BILATERAL KNEES AND R HIP REPLACED AND BILATERAL FEMUR FX /ORIF'S ) Osteoporosis, Arthritis, Fractures Endocrine: No HEENT: Yes Glaucoma Hearing Impairment: Hard of Hearing Cancer: No Psychosocial: Yes Sleep Difficulties, Anxiety, Depression Integumentary: No Blood Disorders: Yes (VTE) Adverse Reaction/Blood Tranf: No Family Medical History Alcoholism 19 FATHER Cardiovascular disease 19 MOTHER Colon cancer 19 MOTHER Diabetes mellitus 19 MOTHER Neoplasm 19 MOTHER (colon ca w/ mets to liver ) Respiratory disorder 19 FATHER No Family History of: AIDS Abdominal aortic aneurysm Arthritis Asthma Dementia Drug abuse Hypertension Kidney disease Myocardial infarction Psychosocial problem Seizure disorder Severe allergy Thyroid disease Tuberculosis Cancer, Diabetes Physical Exam Vital Signs Vital Signs - First Documented 11/04/18 12:33 Pulse 105 B/P (MAP) 106/67 (80) Pulse Ox 99 O2 Delivery Nasal Cannula O2 Flow Rate 4.00 Capillary Refill : Greater Than 3 SecondsLess Than 3 Seconds Height, Weight, BMI Height: 5'0.00" Weight: 126lbs. 0.0oz. 57.022503qk; 24.6 BMI Method:Stated General Appearance: no apparent distress, other (LOWER HALF OF BODY WITH LARGE AMOUNTS OF LOOSE/EXCESSIVE SKIN--APPEARANCE OF SIGNIFICANT WEIGHT LOSS. ) HEENT: PERRL/EOMI, normal ENT inspection Neck: normal inspection Cardiovascular: regular rate, rhythm, no JVD, no murmur Respiratory: normal breath sounds, no respiratory distress, no accessory muscle use Peripheral Pulses: 1+ Dorsalis Pedis (R), 1+ Left Dors-Pedis (L) Gastrointestinal: non tender, soft Back: no CVA tenderness, no vertebral tenderness Extremities: normal capillary refill, other (2+ EDEMA OF LEFT LEG, 1+ EDEMA OF RIGHT LEG. BOTH KNEES WITH SWELLING/EFFUSIONS. DIFFUSE TENDERNESS OF BOTH LEGS FROM MID THIGHS DOWN TO ANKLES. DISTAL MOTOR/SENSORY/VASCULAR INTACT. NO BRUISING OR ABRASIONS OR ERYTHEMA NOTED ANYWHERE ON BODY. ) Neurologic/Psychiatric: certified respiratory therapist II-XII nml as tested, no motor/sensory deficits, alert, normal mood/affect, oriented x 3 Skin: normal color, warm/dry Procedures/Interventions Splinting and Joint Reduction : Immobilizers: Step Light Walker s/m/lg (BILATERALLY) Progress/Results/Core Measures Results/Orders Lab Results Laboratory Tests Test 11/04/18 21:30 11/04/18 21:48 Range/Units White Blood Count 6.3 4.3-11.0 10^3/uL Red Blood Count 3.96 L 4.35-5.85 10^6/uL Hemoglobin 11.7 11.5-16.0 G/DL Hematocrit 39 35-52 % Mean Corpuscular Volume 98 80-99 FL Mean Corpuscular Hemoglobin 30 25-34 PG Mean Corpuscular Hemoglobin Concent 30 L 32-36 G/DL Red Cell Distribution Width 15.0 H 10.0-14.5 % Platelet Count 94 L 130-400 10^3/uL Mean Platelet Volume 13.1 H 7.4-10.4 FL Neutrophils (%) (Auto) 52 42-75 % Lymphocytes (%) (Auto) 39 12-44 % Monocytes (%) (Auto) 7 0-12 % Eosinophils (%) (Auto) 1 0-10 % Basophils (%) (Auto) 0 0-10 % Neutrophils # (Auto) 3.3 1.8-7.8 X 10^3 Lymphocytes # (Auto) 2.5 1.0-4.0 X 10^3 Monocytes # (Auto) 0.4 0.0-1.0 X 10^3 Eosinophils # (Auto) 0.1 0.0-0.3 10^3/uL Basophils # (Auto) 0.0 0.0-0.1 10^3/uL Prothrombin Time 32.2 H 12.2-14.7 SEC INR Comment 3.1 H 0.8-1.4 Activated Partial Thromboplast Time 40 H 24-35 SEC Sodium Level 142 135-145 MMOL/L Potassium Level 4.1 3.6-5.0 MMOL/L Chloride Level 101 98-107 MMOL/L Carbon Dioxide Level 31 21-32 MMOL/L Anion Gap 10 5-14 MMOL/L Blood Urea Nitrogen 22 H 7-18 MG/DL Creatinine 1.12 0.60-1.30 MG/DL Estimat Glomerular Filtration Rate 46 BUN/Creatinine Ratio 20 Glucose Level 113 H 70-105 MG/DL Lactic Acid Level 1.64 0.50-2.00 MMOL/L Calcium Level 8.9 8.5-10.1 MG/DL Corrected Calcium 9.7 8.5-10.1 MG/DL Magnesium Level 1.6 L 1.8-2.4 MG/DL Total Bilirubin 0.6 0.1-1.0 MG/DL Aspartate Amino Transf (AST/SGOT) 32 5-34 U/L Alanine Aminotransferase (ALT/SGPT) 18 0-55 U/L Alkaline Phosphatase 133 40-136 U/L Total Creatine Kinase 56 29-168 U/L Creatine Kinase MB 2.9 <6.6 NG/ML Myoglobin 94.4 H 10.0-92.0 NG/ML Troponin I < 0.028 <0.028 NG/ML B-Type Natriuretic Peptide 121.8 H <100.0 PG/ML Total Protein 5.9 L 6.4-8.2 GM/DL Albumin 3.0 L 3.2-4.5 GM/DL Lipase 11 8-78 U/L TSH [place] Testing 3.66 0.35-4.94 UIU/ML Blood Gas Puncture Site RIGHT BRACHIAL Blood Gas Patient Temperature 97.5 Arterial Blood pH 7.39 7.37-7.43 Arterial Blood Partial Pressure CO2 52 H 35-45 MMHG Arterial Blood Partial Pressure O2 127 H 79-93 MMHG Arterial Blood HCO3 31 H 23-27 MMOL/L Arterial Blood Total CO2 33.0 H 21.0-31.0 MMOL/L Arterial Blood Oxygen Saturation 99 94-100 % Arterial Blood Base Excess 6.4 H -2.5-2.5 MMOL/L Reynaldo Test NA Blood Gas Ventilator Setting NO Blood Gas Inspired Oxygen 10L Micro Results Microbiology 11/04/18 Influenza Types A,B Antigen (GHADA) - Final, Complete My Orders Orders - AMANDA AMBROCIO DO Saline Lock/Iv-Start (11/04/18 21:17) Ekg Tracing (11/04/18 21:17) Catheter(Urinary) Insert & Ass 03,15 (11/04/18 21:17) O2 (11/04/18 21:17) Monitor-Rhythm Ecg Trace Only (11/04/18 21:17) Ct Head Wo-R/O Stroke (11/04/18 21:17) Arterial Blood Gas (11/04/18 21:46) BNP (11/04/18 21:17) Cbc With Automated Diff (11/04/18 21:17) Comprehensive Metabolic Panel (11/04/18 21:17) Creatine Kinase (11/04/18 21:17) Creatine Kinase Mb (11/04/18 21:17) Lactic Acid Analyzer (11/04/18 21:17) Lipase (11/04/18 21:17) Magnesium (11/04/18 21:17) Protime With Inr (11/04/18 21:17) Partial Thromboplastin Time (11/04/18 21:17) Thyroid Analyzer (11/04/18 21:17) Troponin I (11/04/18 21:17) Ua Culture If Indicated (11/04/18 21:17) Blood Culture (11/04/18 21:17) Influenza A And B Antigens (11/04/18 21:17) Myoglobin Serum (11/04/18 21:17) Chest 1 View, Ap/Pa Only (11/04/18 21:17) Femur, Left, 2 Views (11/04/18 21:17) Femur, Right, 2 Views (11/04/18 21:17) Tibia/Fibula, Left, 2 Views (11/04/18 21:17) Tibia/Fibula, Right, 2 Views (1/27/19 21:17) Knee, Left, 3 Views (11/04/18 21:17) Knee, Right, 3 Views (11/04/18 21:17) Pelvis/Ubaldo Hips 5> Views (11/04/18 21:17) Ekg Tracing (11/04/18 21:20) Vital Signs/I&O 11/04/18 11/04/18 11/04/18 11/04/18 12:33 21:03 21:03 21:03 Temp 97.5 97.5 Pulse 105 89 89 Resp 17 17 B/P (MAP) 106/67 (80) 125/77 (93) 125/77 (93) Pulse Ox 99 100 100 100 O2 Delivery Nasal Cannula OxyMask OxyMask OxyMask O2 Flow Rate 4.00 10.00 10.00 Blood Pressure Mean: 89 Progress Progress Note : Progress Note O2 SATS 73% ON ROOM AIR ON ARRIVAL WITH GOOD WAVEFORM. PT DENIES FEELING SHORT OF BREATH PT PLACED ON O2 AT 10L / OXIMASK WITH O2 SATS UP TO 99%. PT ABLE TO BE TITRATED DOWN TO 4L/NC AND SATS STILL IN UPPER 90'S UNEVENTFUL ER STAY OTHERWISE. Initial ECG Impression Date: Nov 04, 2018 Initial ECG Impression Time: 21:11 Initial ECG Rate: 89 Initial ECG Rhythm: Normal Sinus EKG : EKG Time: 21:15 Rate: 86 Rhythm: Normal Sinus Diagnostic Imaging Comments CXR--CARDIOMEGALY, NO ACUTE PROCESS XRAYS: PELVIS WITH BILATERAL HIPS--NO ACUTE PROCESS RIGHT FEMUR--NO ACUTE PROCESS, DISTAL FEMUR HARDWARE IN PLACE RIGHT KNEE--FX MEDIAL ASPECT OF PROXIMAL TIBIA, HARDWARE APPEARS INTACT. RIGHT TIB-FIB- ABOVE. LEFT FEMUR--NO ACUTE PROCESS, DISTAL FEMUR HARDWARE IN PLACE LEFT KNEE--FX PROXIMAL FIBULA AND TIBIA LEFT TIB-FIB -- ABOVE ALL PENDING RADIOLOGIST REVIEW CT HEAD/CERVICAL SPINE--NO ACUTE PROCESS, CHRONIC SMALL VESSEL DISEASE, PER [facility] VIA FAX AT [id number] Reviewed: Reviewed by Me Focused Exam Lactate Level 11/04/18 21:30: Lactic Acid Level 1.64 Lactic Acid Level Laboratory Tests Test 11/04/18 21:30 Lactic Acid Level 1.64 MMOL/L (0.50-2.00) Departure Communication (Admissions) 2310--SPOKE WITH DR. RAMOS, HOSPITALIST RENAL DIETITIAN. ACCEPTS PT FOR ADMIT. WILL CONSULT ORTHO IN AM Impression Primary Impression: S/P FALL VS NEAR-SYNCOPE Additional Impressions: SEVERE HYPOXIA Closed fracture of right proximal tibia Closed fracture of proximal end of left tibia and fibula Hypomagnesemia UTI (urinary tract infection) RECENT DVT LEFT LEG Disposition: ADMITTED INPATIENT Condition: Stable Admissions Decision to Admit Reason: Admit from ER (Trauma) Decision to Admit/Date: Nov 04, 2018 Time/Decision to Admit Time: 23:10 Departure-Patient Inst. Referrals: DILMA RAHMAN MD (PCP) Primary Care Physician AMANDA AMBROCIO DO Nov 05, 2018 04:22
[2018-11-05 04:32] LABS: POTASSIUM 4.4 MMOL/L (3.6-5.0)
--- NOTE | 2018-11-05 06:15 | Diagnostic Imaging Report ---
PROCEDURE: CT head wo r/o stroke. TECHNIQUE: Multiple contiguous axial images were obtained through the brain without the use of intravenous contrast. INDICATION: Fall. Study compared with exam 10/12/2018. FINDINGS: There is no fracture or hemorrhage. No hydrocephalus, edema or evidence for elevated pressures. There is no paranasal sinus air-fluid level. There is no change. Chronic white matter disease stable. IMPRESSION: Unchanged head CT. Dictated by: Dictated on workstation # [id number]
--- NOTE | 2018-11-05 07:22 | Pulmonary Consultation ---
History of Present Illness History of Present Illness Date of Consultation 11/05/18 07:13 Time Seen by Provider: 07:14 Date of Admission History of Present Illness 83yo with recent hospitalization secondary to acute DVT LLE and she uses oxygen at night presented to ED via EMS secondary to presyncope and fall without LOC. Upon getting up out of bed patient felt very dizzy and then fell. Fall was unwitnessed. PT landed on her knees and then was not able to bear weight on either leg. Denies head trauma and no LOC. She complains of bilateral leg pain. Upon ED arrival her Sp02 was 73% she was placed on high flow oxygen mask and Sp02 improved into 90's. Pt states she has had increasing episodes of dizziness pt also fell night prior to admission too. Pt is on Xarelto secondary to recent DVT dx. Allergies and Home Medications Allergies Coded Allergies: adhesive tape (Verified Allergy, Mild, RASH, 10/12/18) aspirin (Verified Allergy, Unknown, 10/12/18) meperidine (Verified Allergy, Unknown, 10/12/18) nitrofurantoin (Verified Allergy, Unknown, 10/12/18) Uncoded Allergies: SURGICAL TAPE (Allergy, Unknown, 05/14/07) Home Medications Calcium Carbonate/Vitamin D3 1 Each Tablet, 1 TAB PO BID, (Reported) Diclofenac Sodium 100 Gm Gel..gram., TP BID PRN for JOINT PAIN, (Reported) Famotidine 20 Mg Tablet, 20 MG PO BID, (Reported) Fesoterodine Fumarate 8 Mg Tab.er.24h, 8 MG PO HS, (Reported) Fluoxetine HCl 20 Mg Capsule, 20 MG PO DAILY, (Reported) Gabapentin 300 Mg Capsule, 300 MG PO BID, (Reported) Hydrocodone/Acetaminophen 1 Each Tablet, 1 TAB PO Q6H PRN for PAIN-MODERATE, ( Reported) Hydrocortisone 28.35 Gm Cream.appl, TOP QID PRN for HEMORRHOIDS, (Reported) Loteprednol Etabonate 5 Gm Drops.gel, 1 DROP OD DAILY, (Reported) Montelukast Sodium 10 Mg Tablet, 10 MG PO DAILY, (Reported) Morphine Sulfate 30 Mg Tablet.er, 30 MG PO BID, (Reported) Ondansetron 8 Mg Tab.rapdis, 8 MG PO Q8H PRN for NAUSEA/VOMITING-1ST LINE, ( Reported) Polyethylene Glycol 3350 17 Gm Powd.pack, 17 GM PO DAILY PRN for CONSTIPATION- 2ND LINE, (Reported) Polyvinyl Alcohol/Povidone 15 Ml Drops, 1 DROP OS DAILY, (Reported) Rivaroxaban 20 Mg Tablet, 20 MG PO DAILY@1700 Prescribed by: MAURICIO GUSMAN on 10/15/18 1020 Saliva Stimulant Agents Comb.3 1 Each [place], 1 SPRAY MM BID PRN for DRY MOUTH, ( Reported) Sucralfate 1 Gm Tablet, 1 GM PO BID, (Reported) Past Rwoqpas-Ynyyyz-Tcnepj Hx Patient Social History Alcohol Use: Denies Use Recreational Drug Use: No Smoking Status: Never a Smoker 2nd Hand Smoke Exposure: No Recent Foreign Travel: No Contact w/Someone Who Travel: No Recent Infectious Disease Expo: No Recent Hopitalizations: Yes (OCT 12-) Physical Abuse: No Sexual Abuse: No Mistreated: No Fear: No Immunizations Up To Date Tetanus Booster (TDap): Less than 5yrs Date of Pneumonia Vaccine: Jul 09, 2018 Date of Influenza Vaccine: Jul 09, 2018 Seasonal Allergies Seasonal Allergies: No Past Medical History Surgeries: Yes (HIATAL HERNIA SX, COLON MASS REMOVED; LEFT HIP REPLACEMENT; BILATERAL KNEE REPLACEMENTS; BILATERAL FEMUR FX/ORIF'S ) Abdominal, Bowel Surgery, Joint Replacement, Orthopedic Respiratory: Yes (OXYGEN AT HS) COPD, Emphysema Cardiac: Yes Deep Vein Thrombosis, Hypertension Neurological: No 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 Disorders: No Genitourinary: Yes Renal Failure, UTI-Chronic Gastrointestinal: Yes (COLON RESECTION) Gastroesophageal Reflux, Hiatal Hernia Musculoskeletal: Yes (BILATERAL KNEES AND R HIP REPLACED AND BILATERAL FEMUR FX /ORIF'S ) Osteoporosis, Arthritis, Fractures Endocrine: No HEENT: Yes Glaucoma Hearing Impairment: Hard of Hearing Cancer: No Psychosocial: Yes Sleep Difficulties, Anxiety, Depression Integumentary: No Blood Disorders: Yes (VTE) Adverse Reaction/Blood Tranf: No Family Medical History Alcoholism 19 FATHER Cardiovascular disease 19 MOTHER Colon cancer 19 MOTHER Diabetes mellitus 19 MOTHER Neoplasm 19 MOTHER (colon ca w/ mets to liver ) Respiratory disorder 19 FATHER No Family History of: AIDS Abdominal aortic aneurysm Arthritis Asthma Dementia Drug abuse Hypertension Kidney disease Myocardial infarction Psychosocial problem Seizure disorder Severe allergy Thyroid disease Tuberculosis Cancer, Diabetes Review of Systems Time Seen by Provider: 07:31 Constitutional: Chills, Weakness, Malaise; No: Fever, Sweats, Other Eyes: No: Pain, Vision change, Conjunctivae inflammation, Eyelid inflammation, Other, Redness ENT: No: Ear pain, Ear discharge, Nose pain, Nose discharge, Nose congestion, Mouth pain, Mouth swelling, Throat pain, Throat swelling, Other Respiratory: Cough, Dry, Shortness of breath, SOB with excertion; No: Wheezing , Hemoptysis Cardiovascular: Paroxysmal Noc. Dyspnea, Lt Headedness; No: Chest Pain, Palpitations, Orthopnea, Edema, Other Neurological: Weakness, Incoordination, Confusion Sepsis Event Evaluation Height, Weight, BMI Height: 5'0.00" Weight: 126lbs. 0.0oz. 57.152078zu; 24.6 BMI Method:Stated Exam Exam Vital Signs Date Time Temp Pulse Resp B/P (MAP) Pulse Ox O2 Delivery O2 Flow Rate FiO2 11/05/18 06:00 92 18 97/54 (68) 100 Nasal Cannula 4.00 11/05/18 05:00 100 109/74 (86) 95 Nasal Cannula 4.00 11/05/18 04:00 100 Nasal Cannula 4.00 11/05/18 04:00 98 106/80 (89) 100 Nasal Cannula 4.00 11/05/18 03:00 99 93/64 (74) 100 Nasal Cannula 4.00 11/05/18 02:00 98 91/65 (74) 99 Nasal Cannula 4.00 11/05/18 01:45 98 113/99 (104) 100 Nasal Cannula 4.00 11/05/18 01:30 101 25 90/71 (77) 100 Nasal Cannula 4.00 11/05/18 01:15 96 25 97/72 (80) 100 Nasal Cannula 4.00 11/05/18 01:00 101 34 108/92 (97) 100 Nasal Cannula 4.00 11/05/18 01:00 101 11/05/18 00:55 98 Nasal Cannula 4.00 11/05/18 00:45 105 33 91/73 (79) 98 Nasal Cannula 4.00 11/05/18 00:44 105 11/05/18 00:06 97.5 95 17 136/88 (104) 100 Nasal Cannula 4.00 11/04/18 21:03 97.5 89 17 125/77 (93) 100 OxyMask 11/04/18 21:03 97.5 89 17 125/77 (93) 100 OxyMask 10.00 11/04/18 21:03 100 OxyMask 10.00 11/04/18 12:33 105 106/67 (80) 99 Nasal Cannula 4.00 I & O 11/05/18 07:00 Intake Total 0 ml Output Total 300 ml Balance -300 ml Height & Weight Height: 5'0.00" Weight: 126lbs. 0.0oz. 57.805446if; 24.6 BMI Method:Stated General Appearance: No Apparent Distress, WD/WN, Chronically ill HEENT: PERRL/EOMI, Normal ENT Inspection, Pharynx Normal Neck: Full Range of Motion, Non Tender, Supple Respiratory: Chest Non Tender, No Accessory Muscle Use, No Respiratory Distress , Crackles, Decreased Breath Sounds Cardiovascular: No Edema, No Gallop, Tachycardia Capillary Refill: Less Than 3 Seconds Peripheral Pulses: 1+ Dorsalis Pedis (R), 1+ Left Dors-Pedis (L) Gastrointestinal: non tender, soft Extremity: Normal Capillary Refill, Normal Inspection Neurologic/Psychiatric: Alert, Other (confused) Skin: Normal Color, Warm/Dry Lymphatic: No Adenopathy Results Lab Laboratory Tests 11/04/18 21:30 11/05/18 03:00 Assessment/Plan Assessment/Plan Acute on chronic respiratory failure -Oxygen -BiPaP PRN COPDAE with hypoxia -Oxygen -SVNs S/p fall with bilateral tibia fracture and left fibula fracture -Ortho is consulted Confusion/metabolic encephalopathy -Probably from pain meds -Monitor UTI with sepsis - not severe sepsis -Start Rocephin -Cultures pending Recent LLE DVT -Restart Anticoagulation today if OK with ortho SWAPNA WALKER DO Nov 05, 2018 07:22
--- NOTE | 2018-11-05 07:33 | Diagnostic Imaging Report ---
Left knee at 1012 hours. INDICATION: Fell. 3 views were obtained. FINDINGS: The postsurgical and posttraumatic changes involving the left knee joint seen on the prior exam of 09/11/2017 are again evident. There is no fracture, dislocation or acute bony abnormality visualized. The lateral view does suggest that there is a joint effusion present. There is also a question of lipohemarthrosis. This may be related to an occult fracture of the knee joint. If further imaging is desired, then CT would be recommended. IMPRESSION: There is no acute fracture visualized. However, there may be lipohemarthrosis suggesting that there is an occult fracture present. Recommendations as above. Dictated by: Dictated on workstation # [id number]
--- NOTE | 2018-11-05 07:35 | Diagnostic Imaging Report ---
Left femur at 1012. Indication: Fell AP and lateral views were obtained. As noted on the fluoroscopic exam performed on 10:30 as well as an intramedullary melisa and orthopedic fixation wires about the distal femur. There is also a total knee prosthesis in place. There orthopedic hardware seems stable on this exam. There is no acute fracture identified. The total hip prosthesis is not well-visualized on the lateral view however. A left hip study is pending for further study. As noted on the left knee exam performed in conjunction study, there is a joint effusion present as well as a question of lipohemarthrosis. Impression: There is no acute bony abnormality appreciated. A left hip exam is pending for further evaluation. Dictated by: Dictated on workstation # [id number]
--- NOTE | 2018-11-05 07:38 | Diagnostic Imaging Report ---
Supine AP chest at 1006. Indication: Fell The cardiomegaly and chronic pulmonary changes seen on the prior exam of 10/22/2018 are again visualized and no different. There is no acute cardiopulmonary abnormality identified. There is no sign of failure, pneumonia or pleural effusion. The mediastinum is not widened. The osseous structures are intact. Impression: There is no evidence for an acute cardiopulmonary abnormality. Dictated by: Dictated on workstation # [id number]
--- NOTE | 2018-11-05 07:42 | Diagnostic Imaging Report ---
Indication: Fell, proximal tibial fracture. Findings: Frontal and lateral views of the right tibia and fibula demonstrate previous right total knee joint arthroplasty. There is a fracture of the proximal tibial metaphyseal region. No evidence of hardware loosening is present. Impression: There is right total knee with a nondisplaced fracture of the proximal tibia. Dictated by: Dictated on workstation # [id number]
--- NOTE | 2018-11-05 07:44 | Diagnostic Imaging Report ---
INDICATION: Fall. Exam compared 10/12/2018. FINDINGS: The bones are osteoporotic. Fractures involve the proximal metaphysis of the tibia seen best in the AP view. Old deformities and postoperative changes to the distal femur and knee replacement noted. There is posttraumatic joint effusion. IMPRESSION: Proximal tibial fracture at its metaphysis with severe osteoporosis. This fracture is acute and has developed from recent exams. Joint effusion noted. Dictated by: Dictated on workstation # [id number]
[2018-11-05] MEDS ORDERED: CATHETER FLUSH 10 ML SYR IV PRN (07:45)
--- NOTE | 2018-11-05 07:45 | Diagnostic Imaging Report ---
Right femur at 10:10. AP and lateral views were obtained. The right hip joint was not included in its entirety on this exam. The right hip study is pending for further evaluation. 4 views were obtained. Findings: As noted on the previous exam of 09/11/2017, there is a total knee prosthesis in place as well as orthopedic plate and screw fixation device along the lateral aspect of the distal femur. In the interval since the prior exam, an oblique slightly displaced fracture of the posterior medial aspect of the proximal tibia has developed. I suspect that this injury is acute or subacute in nature. The orthopedic hardware appears to be in good position. There is a joint effusion present but there is no sign of lipohemarthrosis. No other fracture or acute bony abnormality is identified. Impression: There is a slightly displaced fracture of the posterior medial aspect of the proximal tibia. The orthopedic hardware seems to be in good position. If further studies are desired, CT would be recommended. These results were discussed with Dr. Garrett Holm in the ER at 8:15 AM on 11/05/2018.. Dictated by: Dictated on workstation # [id number]
--- NOTE | 2018-11-05 07:48 | Diagnostic Imaging Report ---
Pelvis and bilateral hips Indication: Injury. A single AP view of the pelvis and AP and lateral views of both hip joints were obtained. As noted on the prior exam of 07/28/2015 there is a total hip prosthesis in place on the left. The prosthetic components seem to be in good position. There is some deformity of the pubic symphysis on the left. This was not clearly evident on the prior exam but may be a sequela of prior trauma. It would be less likely that there is an acute or subacute fracture in this area. Even so, if there is clinical concern regarding an injury to the pubic symphysis on the left, then CT would be recommended. No other fracture or acute bony abnormality is noted. There is moderate degenerative disease of the right hip joint. Impression: 1. The deformity of the pubic symphysis on the left is more likely a sequela of prior trauma than due to an acute abnormality. Even so, clinical follow up is recommended. 2. The total hip prosthesis on left appears to be in good position. Dictated by: Dictated on workstation # [id number]
--- NOTE | 2018-11-05 07:48 | Diagnostic Imaging Report ---
INDICATION: Fall. FINDINGS: Osteoporosis is present with old deformities and postoperative changes to the distal femur and knee replacement. Proximal structures compared with knee radiographs of 10/12/2018. Lateral view reveals joint effusion presumed on a posttraumatic basis. There is deformity of the proximal fibula inadequately demonstrated at this exam on a positional basis. Dedicated left knee radiographs needed. Midshaft and distal tibia and fibula showed bony demineralization but appeared nonacute. Study is insufficient for addressing the ankle. If the ankle is injured, ankle radiographs would be needed. IMPRESSION: Suspect but cannot confirm proximal fibular fracture. There is a joint effusion presumed to reflect an intracapsular injury. Position limits assessment of the ankle and knee. Dictated by: Dictated on workstation # [id number]
[2018-11-05] MEDS: cefTRIAXone FOR IV USE 1,000 MG in NS (IVPB) 50 ML IV SCH (08:05)
--- NOTE | 2018-11-05 08:36 | History & Physical-Hospitalist ---
History of Present Illness HPI/Chief Complaint Pt is an 83yoCF known to me from recent admission for fall where DVT was diagnosed. She returned to the ER yesterday after another fall last night where she was unable to stand up due to bilateral knee pain. She states was getting up to go to the bathroom when he legs gave out underneath her and she fell on them. She denied any dizziness, syncope, or LOC. She states she has fallen 2 times in the past week. She has a history of bilateral knee replacements as well. Today she complains of pain in her knees but otherwise has no complaints. Source: patient Date Seen 11/05/18 Time Seen by a Provider: 08:34 Attending Physician Titi Kelly MD PCP Titi Kelly MD Referring Physician Date of Admission Nov 04, 2018 at 23:10 Home Medications & Allergies Home Medications Reviewed patient Home Medication Reconciliation performed by pharmacy medication reconciliations mineral surveying technician and/or nursing. Patients Allergies have been reviewed. Allergies Allergies Coded Allergies adhesive tape (Verified Allergy, Mild, RASH, 10/12/18) aspirin (Verified Allergy, Unknown, 10/12/18) meperidine (Verified Allergy, Unknown, 10/12/18) nitrofurantoin (Verified Allergy, Unknown, 10/12/18) Uncoded Allergies SURGICAL TAPE ( Allergy, Unknown, 05/14/07) Past Ahuhnuy-Agyhwc-Odkwic Hx Past Med/Social Hx: Reviewed Nursing Past Med/Soc Hx Patient Social History Employed/Student: retired Alcohol Use: Denies Use Recreational Drug Use: No Smoking Status: Never a Smoker 2nd Hand Smoke Exposure: No Recent Foreign Travel: No Contact w/other who traveled: No Recent Hopitalizations: Yes (OCT 12-) Recent Infectious Disease Expo: No Immunizations Up To Date Tetanus Booster (TDap): Less than 5yrs Date of Pneumonia Vaccine: Jul 09, 2018 Date of Influenza Vaccine: Jul 09, 2018 Seasonal Allergies Seasonal Allergies: No Past Medical History Surgeries: Abdominal, Bowel Surgery, Joint Replacement, Orthopedic (bilateral knee replacements) Cardiac: Deep Vein Thrombosis, Hypertension 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: No Genitourinary: Renal Failure, UTI-Chronic Gastrointestinal: Gastroesophageal Reflux, Hiatal Hernia Musculoskeletal: Osteoporosis, Arthritis, Fractures HEENT: Glaucoma Hearing Impairment: Hard of Hearing Psychosocial: Sleep Difficulties, Anxiety, Depression History of Blood Disorders: Yes Adverse Reaction to Blood Felipe: No Family History Reviewed Nursing Family Hx Alcoholism 19 FATHER Cardiovascular disease 19 MOTHER Colon cancer 19 MOTHER Diabetes mellitus 19 MOTHER Neoplasm 19 MOTHER (colon ca w/ mets to liver ) Respiratory disorder 19 FATHER No Family History of: AIDS Abdominal aortic aneurysm Arthritis Asthma Dementia Drug abuse Hypertension Kidney disease Myocardial infarction Psychosocial problem Seizure disorder Severe allergy Thyroid disease Tuberculosis Cancer, Diabetes Review of Systems Constitutional: No chills, No fever; weakness Gastrointestinal: No melena Musculoskeletal: joint pain (bilateral knee pain) Psychiatric/Neurological: Denies Paresthesia All Other Systems Reviewed Negative Unless Noted: Yes Physical Exam Physical Exam Vital Signs Vital Signs - First Documented Capillary Refill : Greater Than 3 SecondsLess Than 3 Seconds Height, Weight, BMI Height: 5'0.00" Weight: 126lbs. 0.0oz. 57.303384we; 24.6 BMI Method:Stated General Appearance: No Apparent Distress, Chronically ill, Thin HEENT: PERRL/EOMI, Moist Mucous Membranes Neck: Non Tender, Supple Respiratory: Lungs Clear, No Respiratory Distress Cardiovascular: Regular Rate, Rhythm, No Murmur Gastrointestinal: Normal Bowel Sounds, Non Tender, Soft Extremity: Normal Capillary Refill, No Calf Tenderness Neurologic/Psychiatric: Alert, Oriented x3, Normal Mood/Affect Skin: Normal Color, Warm/Dry Results Results/Procedures Labs Laboratory Tests 11/06/18 06:32 11/07/18 06:15 Patient resulted labs reviewed. Imaging: Reviewed Imaging Report Imaging Date of Exam:11/04/18 TIBIA/FIBULA, RIGHT, 2 VIEWS Indication: Fell, proximal tibial fracture. Findings: Frontal and lateral views of the right tibia and fibula demonstrate previous right total knee joint arthroplasty. There is a fracture of the proximal tibial metaphyseal region. No evidence of hardware loosening is present. Impression: There is right total knee with a nondisplaced fracture of the proximal tibia. Date of Exam:11/04/18 TIBIA/FIBULA, LEFT, 2 VIEWS INDICATION: Fall. FINDINGS: Osteoporosis is present with old deformities and postoperative changes to the distal femur and knee replacement. Proximal structures compared with knee radiographs of 10/12/2018. Lateral view reveals joint effusion presumed on a posttraumatic basis. There is deformity of the proximal fibula inadequately demonstrated at this exam on a positional basis. Dedicated left knee radiographs needed. Midshaft and distal tibia and fibula showed bony demineralization but appeared nonacute. Study is insufficient for addressing the ankle. If the ankle is injured, ankle radiographs would be needed. IMPRESSION: Suspect but cannot confirm proximal fibular fracture. There is a joint effusion presumed to reflect an intracapsular injury. Position limits assessment of the ankle and knee. Assessment/Plan Admission Diagnosis Bilateral tib/fib fractures Admission Status: Inpatient Order (span 2 midnights) Reason for Inpatient Admission: Orthopedic evaluation, possible surgical intervention, pain control Diagnosis/Problems Diagnosis/Problems (1) Closed fracture of right proximal tibia Status: Acute Assessment & Plan: Ortho consulted, appreciate recs Keep NPO until they evaluate Fentanyl for pain PT/OT after ortho recs May need SNF or IRU at [place] Qualifiers: Encounter type: initial encounter Fracture morphology: unspecified fracture morphology Qualified Codes: S82.101A - Unspecified fracture of upper end of right tibia, initial encounter for closed fracture (2) Closed fracture of proximal end of left tibia and fibula Status: Acute Assessment & Plan: As above Qualifiers: Encounter type: initial encounter Qualified Codes: S82.102A - Unspecified fracture of upper end of left tibia, initial encounter for closed fracture; S82.832A - Other fracture of upper and lower end of left fibula, initial encounter for closed fracture (3) UTI (urinary tract infection) Assessment & Plan: Not sepsis Continue rocephin Await cultures Qualifiers: Urinary tract infection type: acute cystitis Hematuria presence: with hematuria Qualified Codes: N30.01 - Acute cystitis with hematuria (4) DVT (deep venous thrombosis) Status: Acute Assessment & Plan: Diagnosed 10/14/18 2nd episode of 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 Pending discharge planning may need lifelong anticoagulation Will need further discussion with patient in regards to safety given recurrent falls Qualifiers: DVT location: lower extremity Affected thrombotic vein of extremity: femoral Chronicity: chronic Laterality: left Qualified Codes: I82.512 - Chronic embolism and thrombosis of left femoral vein (5) Hypomagnesemia Status: Acute Assessment & Plan: Replaced (6) Hypoxia Assessment & Plan: Hypoxic on arrival but was on room air generally wears nocturnal oxygen Titrate to keep sats >90 PUlm consulted, appreciate recs (7) Thrombocytopenia Assessment & Plan: Reviewed and chronic Likely consumptive from clot Trend Clinical Quality Measures DVT/VTE Risk/Contraindication: Risk Factor Score Per Nursin RFS Level Per Nursing on Admit: 4+=Very High RIZWAN VIDAL MD Nov 05, 2018 08:36
[2018-11-05] MEDS ORDERED: CALC1CAP21 PO (09:11)
[2018-11-05] MEDS ORDERED: RIVA20TA PO (09:11)
[2018-11-05] MEDS: fentaNYL INJECTION 100 MCG/2 ML AMP IV PRN ×3 (11:49→19:40)
--- NOTE | 2018-11-05 12:24 | Consultation ---
History of Present Illness History of Present Illness Patient Consulted On(piotr/time) 11/05/18 12:17 Date Seen by Provider: Nov 05, 2018 Time Seen by Provider: 12:17 Reason for Visit: fall on 11/04/2018 History of Present Illness fell at home yesterday. Seen in ER and admitted for hypoxia, fall, and bilateral lower ext fractures. Has hx of bilateral femur fractures with IM nailing of left and plating of right. Hx of bilateral TKA per Dr. Healy. Allergies and Home Medications Allergies Coded Allergies: adhesive tape (Verified Allergy, Mild, RASH, 10/12/18) aspirin (Verified Allergy, Unknown, 10/12/18) meperidine (Verified Allergy, Unknown, 10/12/18) nitrofurantoin (Verified Allergy, Unknown, 10/12/18) Uncoded Allergies: SURGICAL TAPE (Allergy, Unknown, 05/14/07) Home Medications Calcium Carbonate/Vitamin D3 1 Each Capsule, 1 CAP PO BID, (Reported) Diclofenac Sodium 100 Gm Gel..gram., TP BID PRN for JOINT PAIN, (Reported) Famotidine 20 Mg Tablet, 20 MG PO BID, (Reported) Fesoterodine Fumarate 8 Mg Tab.er.24h, 8 MG PO HS, (Reported) Fluoxetine HCl 20 Mg Capsule, 20 MG PO DAILY, (Reported) Gabapentin 300 Mg Capsule, 300 MG PO TID, (Reported) Hydrocodone/Acetaminophen 1 Each Tablet, 1 TAB PO Q6H PRN for PAIN-MODERATE, ( Reported) Hydrocortisone 28.35 Gm Cream.appl, TOP QID PRN for HEMORRHOIDS, (Reported) Loteprednol Etabonate 5 Gm Drops.gel, 1 DROP OD DAILY, (Reported) Montelukast Sodium 10 Mg Tablet, 10 MG PO DAILY, (Reported) Morphine Sulfate 30 Mg Tablet.er, 30 MG PO BID, (Reported) Ondansetron 8 Mg Tab.rapdis, 8 MG PO Q8H PRN for NAUSEA/VOMITING-1ST LINE, ( Reported) Polyethylene Glycol 3350 17 Gm Powd.pack, 17 GM PO DAILY PRN for CONSTIPATION- 2ND LINE, (Reported) Polyvinyl Alcohol/Povidone 15 Ml Drops, 1 DROP OS DAILY, (Reported) Rivaroxaban 20 Mg Tablet, 20 MG PO 1700, (Reported) Saliva Stimulant Agents Comb.3 1 Each [place], 1 SPRAY MM BID PRN for DRY MOUTH, ( Reported) Sucralfate 1 Gm Tablet, 1 GM PO BID, (Reported) Patient Home Medication List Home Medication List Reviewed: Yes Past Tkpoqyh-Trpsrw-Peiaid Hx Past Med/Social Hx: Reviewed Nursing Past Med/Soc Hx Patient Social History Alcohol Use: Denies Use Recreational Drug Use: No Smoking Status: Never a Smoker 2nd Hand Smoke Exposure: No Recent Foreign Travel: No Contact w/Someone Who Travel: No Recent Infectious Disease Expo: No Recent Hopitalizations: Yes (OCT 12) Physical Abuse: No Sexual Abuse: No Mistreated: No Fear: No Immunizations Up To Date Tetanus Booster (TDap): Less than 5yrs Date of Pneumonia Vaccine: Jul 09, 2018 Date of Influenza Vaccine: Jul 09, 2018 Seasonal Allergies Seasonal Allergies: No Past Medical History Surgeries: Yes (HIATAL HERNIA SX, COLON MASS REMOVED; LEFT HIP REPLACEMENT; BILATERAL KNEE REPLACEMENTS; BILATERAL FEMUR FX/ORIF'S ) Abdominal, Bowel Surgery, Joint Replacement, Orthopedic (bilateral knee replacements) Respiratory: Yes (OXYGEN AT HS) COPD, Emphysema Cardiac: Yes Deep Vein Thrombosis, Hypertension Neurological: No 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 Disorders: No Genitourinary: Yes Renal Failure, UTI-Chronic Gastrointestinal: Yes (COLON RESECTION) Gastroesophageal Reflux, Hiatal Hernia Musculoskeletal: Yes (BILATERAL KNEES AND R HIP REPLACED AND BILATERAL FEMUR FX /ORIF'S ) Osteoporosis, Arthritis, Fractures Endocrine: No HEENT: Yes Glaucoma Hearing Impairment: Hard of Hearing Cancer: No Psychosocial: Yes Sleep Difficulties, Anxiety, Depression Integumentary: No Blood Disorders: Yes Adverse Reaction/Blood Tranf: No Family Medical History Reviewed Nursing Family Hx Alcoholism 19 FATHER Cardiovascular disease 19 MOTHER Colon cancer 19 MOTHER Diabetes mellitus 19 MOTHER Neoplasm 19 MOTHER (colon ca w/ mets to liver ) Respiratory disorder 19 FATHER No Family History of: AIDS Abdominal aortic aneurysm Arthritis Asthma Dementia Drug abuse Hypertension Kidney disease Myocardial infarction Psychosocial problem Seizure disorder Severe allergy Thyroid disease Tuberculosis Cancer, Diabetes Review of Systems-General Constitutional: weakness Cardiovascular: no symptoms reported Genitourinary: no symptoms reported Musculoskeletal: back pain, joint pain, muscle pain Physical Exam-General Problems Physical Exam Vital Signs Vital Signs - First Documented 11/04/18 12:33 Pulse 105 B/P (MAP) 106/67 (80) Pulse Ox 99 O2 Delivery Nasal Cannula O2 Flow Rate 4.00 Capillary Refill : Less Than 3 SecondsLess Than 3 Seconds General Appearance: no apparent distress Respiratory: no respiratory distress Peripheral Pulses: 1+ Dorsalis Pedis (R), 1+ Left Dors-Pedis (L) Gastrointestinal: soft Extremities: normal capillary refill, other (tenderness bilateral knees diffusely, Tenderness over proximal left fibula. 2+ effusion left knee, Diffuse swelling bilateral lower extremities) Neurologic/Psychiatric: alert, normal mood/affect Assessment/Plan Assessment/Plan Admission Diagnosis/Plan A: periprosthetic right proximal tibial metaphyseal fracture (nondisplaced) periprosthetic right proximal fibular head fracture (nondisplaced) hypoxia fall P: Would not recommend surgery at this point for either fractures since they are nondisplaced. Unsure if fibular fracture of left knee is new or old. Obtain CT scan of left knee. For now continue immobilizer. Continue immobilizer of right knee, No ROM. Continue non weight bearing bilateral lower extremities. Discussed case with Dr. Wright and Dr. Healy notified. Spoke with family about poor prognosis regarding her being nonambulatory for 6-8 weeks. Consult group social worker. Admission Status: Inpatient Order (span 2 midnights) Reason for Inpatient Admission: fall, bilateral periprosthetic knee fractures, hypoxia Clinical Quality Measures DVT/VTE Risk/Contraindication: Risk Factor Score Per Nursin RFS Level Per Nursing on Admit: 4+=Very High SHAUNA MACKEY APRN Nov 05, 2018 12:24
--- NOTE | 2018-11-05 13:17 | Diagnostic Imaging Report ---
INDICATION: Fall. Lower back pain. COMPARISON: 06/24/2015. FINDINGS: Frontal and lateral radiographic views of the lumbar spine were obtained. Patient is status post previous methyl methacrylate augmentation at L1. Remaining lumbar vertebral body heights are preserved. There is no radiographic evidence of acute fracture. Static alignment is maintained. There is no evidence of jumped facets. Mild multilevel degenerative changes are noted. Included portions of the abdomen show a moderate amount of colonic air and stool. No unexpected radiopaque foreign bodies are seen. IMPRESSION: 1. No radiographic evidence of acute fracture or dislocation of the lumbar spine. 2. Mild degenerative changes. 3. Prior methyl methacrylate changes at L1. Dictated by: Dictated on workstation # [id number]
--- NOTE | 2018-11-05 13:44 | Diagnostic Imaging Report ---
Exam: CT left 2-D and fibula without contrast. Date: November 05, 2018. Indication: 83-year-old female, history of falls. Pain at the level of the proximal tibia and fibula. Comparison: Radiographs November 04, 2018. Technique: Axial CT images at the level of the proximal to mid tibia and fibula were obtained. Coronal and sagittal reformats were obtained and provided. Findings: There is a partially visualized right total knee prosthesis. Imaged portions of the hardware appear intact without abnormal periprosthetic lucency. There is a healed remote prior fracture deformity of the proximal tibial metaphysis without complete bony callus bridging. There is also a healed remote prior fracture deformity of the proximal fibular metaphysis with complete bony callus bridging and no residual fracture line. There is no identified acute fracture of either imaged portions of the tibia or fibula. There are vascular calcifications noted. There is no identified sizable fluid collection or hematoma. Impression: 1. Healed prior fracture deformities of the proximal tibial metaphysis and proximal fibular metaphysis with complete bony callus bridging and no residual fracture line. 2. No acute fracture at the level of the imaged portions of the tibia or fibula. 3. The knee joint is not entirely included in the [id number] of imaging. This exam does not well assess for knee joint effusion. The previously questioned fat/fluid level and left knee joint effusion on prior radiograph report of November 04, 2018 is not well evaluated. Included in the differential diagnosis for this finding would be artifact relating to very prominent material overlying the patient. More optimal imaging evaluation for this previously questioned finding would be a left knee CT without contrast. Dictated by: Dictated on workstation # [id number]
[2018-11-05] MEDS ORDERED: NS IV 500 ML 500 ML ONE (14:58)
--- NOTE | 2018-11-05 14:58 | NUR ---
NOTIFIED AARON OF LOW URINE OUTPUT THROUGHOUT THE DAY. ORDER RECEIVED FOR 500MLS NS BOLUS
[2018-11-05] MEDS ORDERED: NS 1000 ML IV BAG IV ONE ×2 (15:00→18:15)
[2018-11-05] MEDS ORDERED: NS IV 500 ML 500 ML IV ONE (15:30)
--- NOTE | 2018-11-05 15:49 | NUR ---
Pt opened eyes when I touched her hand. Pt is Denominational. Offered prayer at bedside.
--- NOTE | 2018-11-05 16:15 | Progress Note-Standard ---
Standard Progress Note Progress Notes/Assess & Plan Date Seen by a Provider: Nov 05, 2018 Time Seen by a Provider: 15:55 Progress/Assessment & Plan Anesthesia Note ([id number]) Called to ICU 1 for a difficult IV start. 22 G IV on first attempt. Flushed with ease. Focused Exam Lactate Level 11/04/18 21:30: Lactic Acid Level 1.64 JORGE BALLESTEROS DO Nov 05, 2018 16:15
[2018-11-05] MEDS ORDERED: LACTATED RINGERS 1,000 ML IV SCH (18:00)
[2018-11-05] MEDS ORDERED: NS IV 1000 ML 1,000 ML IV ONE (18:30)
--- NOTE | 2018-11-05 18:31 | NUR ---
NOTIFIED DR WALKER OF CONTINUED LOW URINE OUTPUT. VITALS STABLE ON 4L. ORDERS RECEIVED FOR 1000L NS BOLUS AT THIS TIME. WILL CONTINUE TO MONITOR
[2018-11-06] VITALS (11 sets, daily range): BP systolic 103–176; BP diastolic 59–96
[2018-11-06] MEDS: fentaNYL INJECTION 100 MCG/2 ML AMP IV PRN (02:42)
--- NOTE | 2018-11-06 04:35 | Pulmonary Progress Note ---
Subjective Date Seen by a Provider: Nov 06, 2018 Time Seen by a Provider: 04:53 Subjective/Events-last exam Patient is in lots of pain today in her lower extremities. She denies shortness of breath and cough today. She notes that she is on nocturnal oxygen at 2L. Review of Systems General: No Chills, No Night Sweats, No Fatigue HEENT: No Head Aches, No Sinus Congestion; Other (dry throat) Pulmonary: No Dyspnea, No Cough, No Pleuritic Chest Pain Cardiovascular: No: Chest Pain, Palpitations, Edema Gastrointestinal: No: Nausea, Vomiting, Abdominal Pain Genitourinary: No Dysuria, No Frequency Musculoskeletal: leg pain Neurological: No: Confusion Sepsis Event Evaluation Height, Weight, BMI Height: 5'0.00" Weight: 126lbs. 0.0oz. 57.723433em; 24.6 BMI Method:Stated Focused Exam Lactate Level 11/04/18 21:30: Lactic Acid Level 1.64 Exam Exam Vital Signs Date Time Temp Pulse Resp B/P (MAP) Pulse Ox O2 Delivery O2 Flow Rate FiO2 11/06/18 04:14 98.6 11/06/18 04:00 96 Nasal Cannula 4.00 11/06/18 01:00 82 11/06/18 00:00 81 15 118/68 (85) 96 Nasal Cannula 4.00 11/06/18 00:00 96 Nasal Cannula 4.00 11/05/18 23:59 97.7 11/05/18 22:42 99.4 11/05/18 20:00 81 16 121/86 (98) 97 Nasal Cannula 4.00 11/05/18 19:55 96 Nasal Cannula 4.00 11/05/18 19:41 100.1 89 14 116/73 (87) 96 Nasal Cannula 4.00 11/05/18 19:00 85 11/05/18 19:00 85 20 126/86 (99) 97 Nasal Cannula 4.00 11/05/18 18:06 95 11 131/81 (98) 100 Nasal Cannula 4.00 11/05/18 17:10 90 10 123/73 (90) 100 Nasal Cannula 4.00 11/05/18 16:36 Nasal Cannula 4.00 11/05/18 16:13 90 9 119/68 (85) 90 Nasal Cannula 4.00 11/05/18 16:00 98 Nasal Cannula 4.00 11/05/18 15:00 87 16 111/76 (88) 98 Nasal Cannula 4.00 11/05/18 14:00 87 19 119/76 (90) 100 Nasal Cannula 4.00 11/05/18 13:00 89 15 100/79 (86) 100 Nasal Cannula 4.00 11/05/18 13:00 92 11/05/18 12:00 100 Nasal Cannula 4.00 11/05/18 12:00 80 15 103/66 (78) 100 Nasal Cannula 4.00 11/05/18 11:00 82 12 101/71 (81) 93 Nasal Cannula 4.00 11/05/18 10:00 84 17 99/67 (78) 100 Nasal Cannula 4.00 11/05/18 09:00 Nasal Cannula 4.00 11/05/18 09:00 89 91/40 (57) 98 Nasal Cannula 4.00 11/05/18 08:00 100 Nasal Cannula 4.00 11/05/18 08:00 89 88/73 (78) 100 Nasal Cannula 4.00 11/05/18 07:00 91 11/05/18 07:00 90 89/76 (80) 100 Nasal Cannula 4.00 11/05/18 06:00 92 18 97/54 (68) 100 Nasal Cannula 4.00 11/05/18 05:00 100 109/74 (86) 95 Nasal Cannula 4.00 I & O 11/06/18 07:00 Intake Total 1060 ml Output Total 415 ml Balance 645 ml Height & Weight Height: 5'0.00" Weight: 126lbs. 0.0oz. 57.875402nr; 24.6 BMI Method:Stated General Appearance: No Apparent Distress, Anxious, Chronically ill, Moderate Distress, Thin HEENT: PERRL/EOMI, Pharynx Normal; No Moist Mucous Membranes Neck: Non Tender, Supple Respiratory: Lungs Clear, No Respiratory Distress Cardiovascular: Regular Rate, Rhythm, No Edema, No Murmur Capillary Refill: Less Than 3 Seconds Peripheral Pulses: 1+ Dorsalis Pedis (R), 1+ Left Dors-Pedis (L) Gastrointestinal: normal bowel sounds, soft Extremity: Normal Capillary Refill, No Calf Tenderness Neurologic/Psychiatric: Alert, Oriented x3, Normal Mood/Affect Skin: Normal Color, Warm/Dry Lymphatic: No Adenopathy Results Lab Laboratory Tests 11/04/18 21:30 11/05/18 03:00 Assessment/Plan Assessment/Plan Acute on chronic respiratory failure -Oxygen -- Titrate oxygen to sats >90% -BiPAP PRN COPDAE with hypoxia -On nocturnal oxygen at home -Titrate oxygen to sats >90% -SVNs S/p fall with bilateral tibia fracture and left fibula fracture -Ortho recommended no surgery at this time Confusion/metabolic encephalopathy -Probably from pain meds -Monitor UTI with sepsis - not severe sepsis -Rocephin -Cultures pending Recent LLE DVT -Consider restarting anticoagulation vs. d/c due to fall risk BHUPINDER-JANE AMBRIZ STUDENT Nov 06, 2018 04:35
--- NOTE | 2018-11-06 05:31 | Pulmonary Progress Note ---
Subjective Time Seen by a Provider: 05:43 Subjective/Events-last exam Pt is less confused today. SHe is complaining of pain. Sepsis Event Evaluation Height, Weight, BMI Height: 5'0.00" Weight: 126lbs. 0.0oz. 57.856676gk; 24.6 BMI Method:Stated Focused Exam Lactate Level 11/04/18 21:30: Lactic Acid Level 1.64 Exam Exam Vital Signs Date Time Temp Pulse Resp B/P (MAP) Pulse Ox O2 Delivery O2 Flow Rate FiO2 11/06/18 04:14 98.6 11/06/18 04:10 87 10 131/96 (108) 97 Nasal Cannula 4.00 11/06/18 04:00 96 Nasal Cannula 4.00 11/06/18 01:00 82 11/06/18 00:00 81 15 118/68 (85) 96 Nasal Cannula 4.00 11/06/18 00:00 96 Nasal Cannula 4.00 11/05/18 23:59 97.7 11/05/18 22:42 99.4 11/05/18 20:00 81 16 121/86 (98) 97 Nasal Cannula 4.00 11/05/18 19:55 96 Nasal Cannula 4.00 11/05/18 19:41 100.1 89 14 116/73 (87) 96 Nasal Cannula 4.00 11/05/18 19:00 85 11/05/18 19:00 85 20 126/86 (99) 97 Nasal Cannula 4.00 11/05/18 18:06 95 11 131/81 (98) 100 Nasal Cannula 4.00 11/05/18 17:10 90 10 123/73 (90) 100 Nasal Cannula 4.00 11/05/18 16:36 Nasal Cannula 4.00 11/05/18 16:13 90 9 119/68 (85) 90 Nasal Cannula 4.00 11/05/18 16:00 98 Nasal Cannula 4.00 11/05/18 15:00 87 16 111/76 (88) 98 Nasal Cannula 4.00 11/05/18 14:00 87 19 119/76 (90) 100 Nasal Cannula 4.00 11/05/18 13:00 89 15 100/79 (86) 100 Nasal Cannula 4.00 11/05/18 13:00 92 11/05/18 12:00 100 Nasal Cannula 4.00 11/05/18 12:00 80 15 103/66 (78) 100 Nasal Cannula 4.00 11/05/18 11:00 82 12 101/71 (81) 93 Nasal Cannula 4.00 11/05/18 10:00 84 17 99/67 (78) 100 Nasal Cannula 4.00 11/05/18 09:00 Nasal Cannula 4.00 11/05/18 09:00 89 91/40 (57) 98 Nasal Cannula 4.00 11/05/18 08:00 100 Nasal Cannula 4.00 11/05/18 08:00 89 88/73 (78) 100 Nasal Cannula 4.00 11/05/18 07:00 91 11/05/18 07:00 90 89/76 (80) 100 Nasal Cannula 4.00 11/05/18 06:00 92 18 97/54 (68) 100 Nasal Cannula 4.00 I & O 11/06/18 07:00 Intake Total 1060 ml Output Total 415 ml Balance 645 ml Height & Weight Height: 5'0.00" Weight: 126lbs. 0.0oz. 57.961739yg; 24.6 BMI Method:Stated General Appearance: No Apparent Distress, Anxious, Chronically ill, Moderate Distress, Thin HEENT: PERRL/EOMI, Pharynx Normal; No Moist Mucous Membranes Neck: Non Tender, Supple Respiratory: Lungs Clear, No Respiratory Distress Cardiovascular: Regular Rate, Rhythm, No Edema, No Murmur Capillary Refill: Less Than 3 Seconds Peripheral Pulses: 1+ Dorsalis Pedis (R), 1+ Left Dors-Pedis (L) Gastrointestinal: normal bowel sounds, soft Extremity: Normal Capillary Refill, No Calf Tenderness Neurologic/Psychiatric: Alert, Oriented x3, Normal Mood/Affect Skin: Normal Color, Warm/Dry Lymphatic: No Adenopathy Results Lab Laboratory Tests 11/04/18 21:30 11/05/18 03:00 Assessment/Plan Assessment/Plan Acute on chronic respiratory failure -Oxygen -- Titrate oxygen to sats >90% -BiPAP PRN -Will probably need home 02 COPDAE with hypoxia -On nocturnal oxygen at home -Titrate oxygen to sats >90% -SVNs ARF with decreased UO - now improved -PT had 1.5 liter bolus of NS yesterday -Change IVF to NS at 150 S/p fall with bilateral tibia fracture and left fibula fracture -Ortho recommended no surgery at this time -Pain control- currently pt is complaining of severe pain -Will change Fentanyl to Morphine and Vicodin. Confusion/metabolic encephalopathy - improved -Monitor UTI with sepsis - not severe sepsis -Rocephin -Cultures pending Recent LLE DVT - pt has fallen multiple times -Start either ppx Lovenox or resume Xarelto secondary to recurrent DVTs. Labs and CXR are pending if they are stable will transfer to 4th floor. SWAPNA WALKER DO Nov 06, 2018 05:31
[2018-11-06] MEDS ORDERED: morphine INJ 4 MG/ML 1 ML (VIAL/SYRINGE) IVP PRN (05:45)
[2018-11-06] MEDS: NS IV 1000 ML 1,000 ML IV SCH ×2 (05:47→15:12)
--- NOTE | 2018-11-06 06:06 | Diagnostic Imaging Report ---
INDICATION: Shortness of breath. COMPARISON: 11/04/2018. FINDINGS: Visualized lungs are clear. Posterior lower lobes are poorly evaluated by portable radiography. No pleural effusion or pneumothorax. Stable heart size. Atherosclerotic aorta is unchanged. IMPRESSION: No acute process by portable radiography. Dictated by: Dictated on workstation # [id number]
[2018-11-06 07:07] LABS: HEMOGLOBIN 7.8 G/DL (11.5-16.0); MEAN PLATELET VOLUME 12.5 FL (7.4-10.4); RED CELL DISTRIBUTION WIDTH 15.2 % (10.0-14.5); WHITE BLOOD COUNT 10.2 10^3/uL (4.3-11.0)
[2018-11-06 07:24] LABS: CREATININE SERUM 1.11 MG/DL (0.60-1.30); POTASSIUM 4.4 MMOL/L (3.6-5.0)
[2018-11-06] MEDS: morphine ER 30 MG (MS CONTIN) TAB PO SCH ×2 (07:51→20:49)
[2018-11-06] MEDS: FLUoxetine HCL 20 MG (PROzac) CAP PO SCH (07:51)
[2018-11-06] MEDS: GABAPENTIN 300 MG (NEURONTIN) CAP PO SCH ×3 (07:52→20:49)
[2018-11-06] MEDS: cefTRIAXone FOR IV USE 1,000 MG in NS (IVPB) 50 ML IV SCH (07:52)
--- NOTE | 2018-11-06 08:10 | Progress Note-Hospitalist ---
Subjective HPI/CC On Admission Date Seen by Provider: Nov 06, 2018 Time Seen by Provider: 08:03 Pt is an 83yoCF known to me from recent admission for fall where DVT was diagnosed. She returned to the ER yesterday after another fall last night where she was unable to stand up due to bilateral knee pain. She states was getting up to go to the bathroom when he legs gave out underneath her and she fell on them. She denied any dizziness, syncope, or LOC. She states she has fallen 2 times in the past week. She has a history of bilateral knee replacements as well. Today she complains of pain in her knees but otherwise has no complaints. Subjective/Events-last exam Pt reports feeling better today but still having pain. No other complaints. Discussed recommendations of ortho and likely need for NH placement. She is in agreement with that plan. Focused Exam Lactate Level 11/04/18 21:30: Lactic Acid Level 1.64 Objective Exam Vital Signs Vital Signs Date Time Temp Pulse Resp B/P (MAP) Pulse Ox O2 Delivery O2 Flow Rate FiO2 11/06/18 04:14 98.6 11/06/18 04:10 87 10 131/96 (108) 97 Nasal Cannula 4.00 Capillary Refill : Less Than 3 SecondsLess Than 3 Seconds General Appearance: No Apparent Distress, Chronically ill, Thin Respiratory: Lungs Clear, No Respiratory Distress Cardiovascular: Regular Rate, Rhythm, No Murmur Gastrointestinal: Normal Bowel Sounds, Soft Neurologic/Psychiatric: Alert, Oriented x3 Results/Procedures Lab Laboratory Tests 11/06/18 06:32 Patient resulted labs reviewed. Imaging: Reviewed Imaging Report Assessment/Plan Assessment and Plan Assess & Plan/Chief Complaint Right knee fracture Diagnosis/Problems Diagnosis/Problems (1) Closed fracture of right proximal tibia Status: Acute Assessment & Plan: Ortho consulted, appreciate recs Nonoperative management recommended Resume home pain medicines with morphine for breakthrough pain PT/OT ordered Agreeable to SNF placement, addiction social worker consulted Qualifiers: Encounter type: initial encounter Fracture morphology: unspecified fracture morphology Qualified Codes: S82.101A - Unspecified fracture of upper end of right tibia, initial encounter for closed fracture (2) Closed fracture of proximal end of left tibia and fibula Status: Acute Assessment & Plan: As above CT revealed old healed fracture, not acute Qualifiers: Encounter type: initial encounter Qualified Codes: S82.102A - Unspecified fracture of upper end of left tibia, initial encounter for closed fracture; S82.832A - Other fracture of upper and lower end of left fibula, initial encounter for closed fracture (3) Normocytic anemia Assessment & Plan: 7.8 today from 10.9 yesterday Will get FOBT Trend questionably dilutional given drops across all the field on blood count Discussed with ortho about effusion of knee and hemoglobin drop (4) UTI (urinary tract infection) Assessment & Plan: Not sepsis Continue rocephin Await culture from urine, blood culture NGTD Qualifiers: Urinary tract infection type: acute cystitis Hematuria presence: with hematuria Qualified Codes: N30.01 - Acute cystitis with hematuria (5) DVT (deep venous thrombosis) Status: Acute Assessment & Plan: Diagnosed 10/14/18 2nd episode of 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 Resume home Xarelto Qualifiers: DVT location: lower extremity Affected thrombotic vein of extremity: femoral Chronicity: chronic Laterality: left Qualified Codes: I82.512 - Chronic embolism and thrombosis of left femoral vein (6) Thrombocytopenia Assessment & Plan: Reviewed and chronic but down today Trend- consider HIT testing if continue to drop but will stop Lovenox Likely consumptive from clot Trend (7) Hypomagnesemia Status: Acute Assessment & Plan: Replaced (8) Hypoxia Assessment & Plan: Hypoxic on arrival but was on room air Titrate to keep sats >90 Pulm consulted, appreciate recs Clinical Quality Measures DVT/VTE Risk/Contraindication: Risk Factor Score Per Nursin RFS Level Per Nursing on Admit: 4+=Very High RIZWAN VIDAL MD Nov 06, 2018 08:10
[2018-11-06] MEDS ORDERED: NON-FORMULARY MEDICATION 1 EA EA (Loteprednol Etabonate (Lotemax) 1 DROP) OD SCH (09:00)
--- NOTE | 2018-11-06 09:37 | NUR ---
CM/SS responded to consult for SS. Patient preference for placement would be for [facility]. Referral sent to [facility].
[2018-11-06] MEDS ORDERED: PATIENT MAY USE OWN MED,SINGLE MED PO SCH (10:00)
[2018-11-06] MEDS: SUCRALFATE 1 GM (CARAFATE) TAB PO SCH ×2 (11:25→15:12)
[2018-11-06] MEDS: ARTIFICAL TEARS 0.4 ML UNIT DOSE (REFRESH PLUS) OS SCH (11:25)
[2018-11-06] MEDS: FAMOTIDINE 20 MG (PEPCID) TABLET PO SCH (11:26)
[2018-11-06] MEDS: POLYETHYLENE GLYCOL 17 GM (MIRALAX) PACK PO PRN (11:31)
--- NOTE | 2018-11-06 11:37 | Physical Therapy Evaluation ---
PT Evaluation-General Medical Diagnosis Admission Date Nov 04, 2018 at 23:10 Medical Diagnosis: Hypoxia, S/P Fall, Bilateral tib-fib fx, DVT Onset Date: Nov 04, 2018 Therapy Diagnosis Therapy Diagnosis: debility, decreased mobility, decreased activity tolerance Height/Weight Height (Feet): 5 Height (Inches): 0.00 Weight (Pounds): 135 Weight (Ounces): 4.0 Precautions Precautions/Isolations: Fall Prevention, Standard Precautions Weight Bear Status Right Lower Extremity: Right Touch Toe Bearing Left Lower Extremity: Left Weight Bearing/Tolerated Referral Physician: Dr. Viramontes Reason for Referral: Evaluation/Treatment Medical History Pertinent Medical History: Arthritis, COPD, Fractures, GERD, HTN, Renal Insufficiency, Thrombosis Additional Medical History B TKA, L ROSALVA, COPD, DVT, Renal Failure, Osteoporosis, Depression Social History Home: Single Level Current Living Status: Children Entry Into Home: Ramp Prior/Core FIM Prior Level of Function Therapy Code Descriptions/Definitions Functional [place] Measure: 0=Not Assessed/NA 4=Minimal Assistance 1=Total Assistance 5=Supervision or Setup 2=Maximal Assistance 6=Modified [place] 3=Moderate Assistance 7=Complete [place] Therapy Quality Codes: 6 Independent with activity with or without an assistive device 5 Patient requires set up or clean up by helper. Patient completes activity by themselves 4 Supervision or touching assist (CGA). [place] provide cues , steadying assist 3 The helper provides less than half the effort to complete the activity 2 The helper provides more than half the effort to complete the activity 1 Dependent. The helper does all the effort to complete an activity 7 Patient refused to complete or attempt activity 9 The patient did not perform the activity before the current illness or injury 88 Not attempted due to Medical conditions or safety concerns Functional Abilities and Goals: Independent: Patient completed the activities by him/herself, with or without an assistive device, with no assistance from a helper. Needed Some Help: Patient needed partial assistance from another person to complete activities. Dependent: A helper completed the activities for the patient. Unknown: Not Applicable: Bed Mobility: 5 Transfers (B,C,W/C) (FIM): 5 Gait: 5 Indoor Mobility (Ambulation): Independent Stairs: Not [place] Prior Devices Use: Walker Prior Device Use: FWW PT Evaluation-Current Subjective Pt in bed on bedpan and agrees to PT. Pain Numeric Pain Scale: 10-Worst Possible Pain Location: Right, Left Location Body Site: Knee Objective Patient Orientation: Person Attachments: Oxygen, Zarco Catheter, IV ROM/Strength ROM Lower Extremities RLE in immobilizer (ext); LLE WNL Strength Lower Extremities NT due to pain Integumentary/Posture Bowel Incontinence: No Bladder Incontinence: Zarco Cath Neuromuscular (Tone, Coordination, Reflexes) NT Sensory Vision: Functional Hearing: Impaired Sensation Right Lower Extremit: Intact Sensation Left Lower Extremity: Intact Transfers Therapy Code Descriptions/Definitions Functional [place] Measure: 0=Not Assessed/NA 4=Minimal Assistance 1=Total Assistance 5=Supervision or Setup 2=Maximal Assistance 6=Modified [place] 3=Moderate Assistance 7=Complete [place] Transfers (B, C, W/C) (FIM): 1 Scootin Rollin Supine to/from Sit: 4 Sit to/from Stand: 1 Gait Mode of Locomotion: Walk Anticipated Mode of Locomotion: Both Gait (FIM): 0 Distance (FIM): 0=does not occure Balance Sitting Static: Poor Sitting Dynamic: Poor Standing Static: Poor Standing Dynamic: Poor Assessment/Needs Pt agreed to transfer to commode. Pt could not maintain sitting balance either due to pain or poor balance. Pt began thrashing and could not explain why. Nurse notified and observed. Pt was max A x2 to bedside commode using stand pivot transfer. Pt sat on bedside commode unable to defecate, even with stimulation. Nurse notified and reported she would give pt meralax. Pt was max A x1 from sit to stand off commode as PT was able to put chair behind pt. Pt is now in recliner with nurse in room. Rehab Potential: Poor PT Short Term Goals Short Term Goals Time Frame: Nov 13, 2018 Transfers (B,C,W/C) (FIM): 3 Gait (FIM): 1 Distance (FIM): 1=up to 49 ft Gait Distance Comment: 20' Gait Level of Assist: 3 Gait Assistive Device: FWW PT Plan Problem List Problem List: Activity Tolerance, Functional Strength, Safety, Balance, Gait, Transfer, Bed Mobility, ROM Treatment/Plan Treatment Plan: Continue Plan of Care Treatment Plan: Bed Mobility, Education, Functional Activity Liliana, Functional Strength, Gait, Safety, Therapeutic Exercise, Transfers Treatment Duration: Nov 13, 2018 Frequency: 6 times per week Estimated Hrs Per Day: .25 hour per day Patient and/or Family Agrees t: Yes Safety Risks/Education Patient Education: Gait Training, Transfer Techniques, Correct Positioning, Safety Issues Teaching Recipient: Patient, Family Teaching Methods: Demonstration, Discussion Response to Teaching: Verbalize Understanding, Return Demonstration, Reinforcement Needed Discharge Recommendations Therapy D/C Recommendations: Care Home Placement Equpiment Recommendations-D/C: Front Wheeled Walker Time/GCodes Time In: 1100 Time Out: 1127 Total Billed Treatment Time: 27 [facility] DECLAN MCCORMICK PT Nov 06, 2018 11:37
--- NOTE | 2018-11-06 12:30 | NUR ---
CM/SS [facility] will take placement of the patient at discharge. Patient and her daughter were updated. [facility] would like to transport at 11:00 on 11/07.
--- NOTE | 2018-11-06 12:38 | Physician Query Clarification ---
PQ-Link Manifestation-Etiology Admission/Discharge Admission Date: Nov 04, 2018 at 23:10 Discharge Date: The medical record reflects the following clinical scenario: History/Risk Factors: Osteoporosis Fall on knees Clinical Findings: Non displaced fractures of right proximal tibial metaphyseal and right proximal fibular head fracture.(Periprosthetic) Treatment: Rt knee immobilizer and non weightbearing bilateral lower extremities. Pain meds. Question: Can you specify if the fractures are due to/associated with Osteoporosis? Please document a response below PHYSICIAN RESPONSE Manifestation due to/assoic: Yes In responding to this query, please exercise your independent professional judgment. The purpose of this communication is to more accurately reflect the complexity of your patients condition. The fact that a question is asked does not imply that any particular answer is desired or expected. Thank you for your timely response to this clarification. Requestors name: Elsie Flynn CCS,[facility] Phone # ext [phone] or [phone] THIS PHYSICIAN QUERY FORM IS A PERMANENT PART OF THE MEDICAL RECORD ELSIE FLYNN Nov 06, 2018 12:38 RIZWAN VIDAL MD Nov 06, 2018 16:37
--- NOTE | 2018-11-06 12:53 | Physician Query Clarification ---
PQ-Conflicting Diagnosis Admission/Discharge Admission Date: Nov 04, 2018 at 23:10 Discharge Date: The medical record reflects the following clinical scenario: History/Risk Factors: Confusion Pain meds Clinical Findings:Metabolic encephalopathy per Dr. Ramirez probably due to pain meds. Treatment: Pain med change to Hydrocodone and Morphine. Question: Do you agree with the impression of the metabolic encephalpathy per Dr. Ramirez? Please document a response below. PHYSICIAN RESPONSE Do you agree w/Consulting Dx?: Yes In responding to this query, please exercise your independent professional judgment. The purpose of this communication is to more accurately reflect the complexity of your patients condition. The fact that a question is asked does not imply that any particular answer is desired or expected. Thank you for your timely response to this clarification. Requestors name: [ ] Phone # [ ] THIS PHYSICIAN QUERY FORM IS A PERMANENT PART OF THE MEDICAL RECORD MIGDALIA FLYNN Nov 06, 2018 12:53 RIZWAN VIDAL MD Nov 07, 2018 16:36
--- NOTE | 2018-11-06 13:02 | Physician Query Clarification ---
PQ-Conflicting Diagnosis Admission/Discharge Admission Date: Nov 04, 2018 at 23:10 Discharge Date: The medical record reflects the following clinical scenario: History/Risk Factors: Emphysema COPD Clinical Findings: pH 7.39, pCo2 52, pO2 127, HCO3 31, Total CO2 33.0, Base Excess 6.4. T 97.5, pulse 89, Resp 17 02 sats 73%. Treatment: OxyMask, Nasal cannula 4L. Question: Do you agree with the impression of the Acute on chronic respiratory failure per Dr. Ramirez? Please document a response below. PHYSICIAN RESPONSE Do you agree w/Consulting Dx?: Yes In responding to this query, please exercise your independent professional judgment. The purpose of this communication is to more accurately reflect the complexity of your patients condition. The fact that a question is asked does not imply that any particular answer is desired or expected. Thank you for your timely response to this clarification. Requestors name: Elsie Flynn [facility] Phone # ext [phone] or [phone] THIS PHYSICIAN QUERY FORM IS A PERMANENT PART OF THE MEDICAL RECORD ELSIE FLYNN Nov 06, 2018 13:02 RIZWAN VIDAL MD Nov 06, 2018 16:33
--- NOTE | 2018-11-06 14:14 | Occupational Therapy Eval ---
OT Evaluation-General/PLF Medical Diagnosis Admission Date Nov 04, 2018 at 23:10 Medical Diagnosis: Hypoxia, S/P Fall, Right Tibial fx Onset Date: Nov 04, 2018 Therapy Diagnosis Therapy Diagnosis: Weakness Height/Weight Height (Feet): 5 Height (Inches): 0.00 Weight (Pounds): 135 Weight (Ounces): 4.0 Precautions Precautions/Isolations: Fall Prevention, Standard Precautions Safety Interventions: None Weight Bear Status Weight Bearing Restriction: Touch Toe Bearing Location Restriction: R LE Pt. has extension brace on right LE. Referral Physician: Dr. Viramontes Referral Reason: Activity Tolerance, Self Care, Evaluation/Treatment, Strengthening/ROM Medical History Pertinent Medical History: Arthritis, COPD, Fractures, GERD, HTN, Renal Insufficiency, Thrombosis Additional Medical History Bilateral knee replacements, abdominal surgery, hiatal hernia Current History Pt. has had multiple falls. Sustained right tibial fx. Pt. is TTWB on right side. WBAT on left side. Reviewed History: Yes Social History Home: Single Level Current Living Status: Children Entry Into Home: Ramp Pt. states that she lives with her daughter and her daughter's caregiver. Pt. is in and out of sleep and is unable to answer all questions fully. ADL-Prior Level of Function Therapy Code Descriptions/Definitions Functional [place] Measure: 0=Not Assessed/NA 4=Minimal Assistance 1=Total Assistance 5=Supervision or Setup 2=Maximal Assistance 6=Modified [place] 3=Moderate Assistance 7=Complete [place] Therapy Quality Codes: 6 Independent with activity with or without an assistive device 5 Patient requires set up or clean up by helper. Patient completes activity by themselves 4 Supervision or touching assist (CGA). [place] provide cues , steadying assist 3 The helper provides less than half the effort to complete the activity 2 The helper provides more than half the effort to complete the activity 1 Dependent. The helper does all the effort to complete an activity 7 Patient refused to complete or attempt activity 9 The patient did not perform the activity before the current illness or injury 88 Not attempted due to Medical conditions or safety concerns Functional Abilities and Goals: Independent: Patient completed the activities by him/herself, with or without an assistive device, with no assistance from a helper. Needed Some Help: Patient needed partial assistance from another person to complete activities. Dependent: A helper completed the activities for the patient. Unknown: Not Applicable: ADL PLOF Comments Pt. states that previously, she was able to bathe and dress herself. However, it is unknown how previously this is. Self Care: Unknown Functional Cognition: Unknown DME/Equipment: Bath Bench, Tub/Shower OT Current Status Subjective Pt. reports 9/10 pain in bilateral LE. Appearance Pt. up in chair. Has just transferred to 4th floor from ICU. States that she is ready to get back to bed. Mental Status/Objective Patient Orientation: Unable to Assess, [place] Attachments: Zarco Catheter, IV, Oxygen ADL-Treatment Therapy Code Descriptions/Definitions Functional [place] Measure: 0=Not Assessed/NA 4=Minimal Assistance 1=Total Assistance 5=Supervision or Setup 2=Maximal Assistance 6=Modified [place] 3=Moderate Assistance 7=Complete [place] Therapy Quality Codes: 6 Independent with activity with or without an assistive device 5 Patient requires set up or clean up by helper. Patient completes activity by themselves 4 Supervision or touching assist (CGA). [place] provide cues , steadying assist 3 The helper provides less than half the effort to complete the activity 2 The helper provides more than half the effort to complete the activity 1 Dependent. The helper does all the effort to complete an activity 7 Patient refused to complete or attempt activity 9 The patient did not perform the activity before the current illness or injury 88 Not attempted due to Medical conditions or safety concerns Lower Body Dressing (FIM): 1 Toileting (FIM): 1 Transfers (B, C, W/C) (FIM): 1 Other Treatments Pt. agrees to transfer back to bed. Pt. has to be cued to keep eyes open. Attempted to stand at first with walker, but pt. is unable to put weight through left LE. Demonstrates "jerking" motion and legs give out. Pt. is asked if she has this happen frequently. Pt. states, "just since I have been falling. " However, does not state how long she has been falling for. OT stands in front of her and provides dependent assistance for sit-stand and pivot to bed. While transferring, and while sitting on side of bed, pt. had jerking like movements. Dependent x 2 for sit-supine and bed mobility. All needs are met in room. OT provides warm blankets and all other needs are met. Education OT Patient Education: Correct positioning, Modified ADL techniques, Progress toward Goal/Update tx plan, Purpose of tx/functional activities, Reviewed precautions, Rehab process, Transfer techniques Teaching Recipient: Patient Teaching Methods: Demonstration, Discussion Response to Teaching: Verbalize Understanding OT Short Term Goals Short Term Goals Time Frame: Nov 13, 2018 Eating(FIM): 4 Grooming(FIM): 4 Bathing(FIM): 3 Upper Body Dressing(FIM): 4 Lower Body Dressing(FIM): 3 Toileting(FIM): 4 Transfers (B,C,W/C) (FIM): 3 Toilet/Commode Transfer(FIM): 3 Additional Short Term Goals: 1-Demonstrate ADL Tasks, 2-Verbalize Understanding , 3-ImproveStrength/Liliana 1=Demonstrate adherence to instructed precautions during ADL tasks. 2=Patient will verbalize/demonstrate understanding of assistive devices/ modifications for ADL. 3=Patient will improve strength/tolerance for activity to enable patient to perform ADL's. OT Group Home Goals Candle Molder Hand Goals Time Frame: Nov 20, 2018 Eating (FIM): 5 Grooming(FIM): 5 Bathing(FIM): 4 Upper Body Dressing(FIM): 5 Lower Body Dressing(FIM): 4 Toileting(FIM): 5 Transfers (B,C,W/C) (FIM): 5 Toilet/Commode Transfer(FIM): 5 Shower Transfer(FIM): 4 Additional Goals: 1-Demonstrate ADL Tasks, 2-Verbalize Understanding, 3- ImproveStrength/Liliana 1=Demonstrate adherence to instructed precautions during ADL tasks. 2=Patient will verbalize/demonstrate understanding of assistive devices/ modifications for ADL. 3=Patient will improve strength/tolerance for activity to enable patient to perform ADL's. OT Education/Plan Problem List/Assessment Assessment: Decreased Activ Tolerance, Dependent Transfers, Impaired Bed Mobility, Impaired Funct Balance, Impaired I ADL's, Impaired Self-Care Skills Discharge Recommendations Plan/Recommendations: Continue POC Therapy D/C Recommendations: 24 hr Supervision Comment Equipment needs and discharge location to be determined. Treatment Plan/Plan of Care Treatment,Training & Education: Yes Patient would benefit from OT for education, treatment and training to promote independence in ADL's, mobility, safety and/or upper extremity function for ADL' s. Plan of Care: ADL Retraining, Functional Mobility, UE Funct Exercise/Act Treatment Duration: Nov 20, 2018 Frequency: 5 times per week Estimated Hrs Per Day: .25 hour per day Agreement: Yes Rehab Potential: Fair Time/GCodes Start Time: 13:35 Stop Time: 13:55 Total Time Billed (hr/min): 20 Billed Treatment Time 1, NAVIN TUTTLE OT Nov 06, 2018 14:14
[2018-11-06] MEDS: OPTH OD SCH (15:13)
[2018-11-06] MEDS: LOTEMAX 0.5% OD SCH (15:13)
[2018-11-06] MEDS ORDERED: RIVAROXABAN 20 MG TABLET (XARELTO) PO SCH (17:00)
[2018-11-06] MEDS: TOLTERODINE LA 4 MG (DETROL) CAP PO SCH (20:49)
[2018-11-06] MEDS: MONTELUKAST 10 MG (SINGULAIR) TAB PO SCH (20:50)
[2018-11-07] VITALS (13 sets, daily range): BP systolic 80–131; BP diastolic 45–83
[2018-11-07] MEDS: NS IV 1000 ML 1,000 ML IV SCH ×2 (04:27→16:55)
[2018-11-07] MEDS: SUCRALFATE 1 GM (CARAFATE) TAB PO SCH ×2 (05:17→16:55)
[2018-11-07 06:30] LABS: MEAN PLATELET VOLUME 11.6 FL (7.4-10.4); RED CELL DISTRIBUTION WIDTH 15.5 % (10.0-14.5); WHITE BLOOD COUNT 6.1 10^3/uL (4.3-11.0)
[2018-11-07 06:54] LABS: CALCIUM 7.3 MG/DL (8.5-10.1); CREATININE SERUM 1.12 MG/DL (0.60-1.30); POTASSIUM 4.2 MMOL/L (3.6-5.0)
[2018-11-07 06:57] LABS: HEMOGLOBIN 5.3 G/DL (11.5-16.0)
--- NOTE | 2018-11-07 07:47 | NUR ---
0657- RECEIVED CRITICAL REPORT HGB-5.3, HCT-18. 0703- ATTEMPTED TO CALL DR. VIDAL. 3809- ATTEMPTED TO CALL DR. VIDAL. 11- SPOKE WITH DR. VIDAL AND INFORMED HER OF PTS CRITICAL LAB. TELEPHONE ORDERS RECEIVED FOR TYPE AND SCREEN FOR 1 UNIT PRBC.
--- NOTE | 2018-11-07 08:16 | Diagnostic Imaging Report ---
INDICATION: Shortness of breath. Comparison made with prior examination from 11/06/2018 FINDINGS: There is cardiomegaly. There is mild venous congestion. There is no pleural effusion or pneumothorax. The mediastinum is unremarkable. IMPRESSION: Cardiomegaly and mild central pulmonary venous congestion. Dictated by: Dictated on workstation # [id number]
[2018-11-07] MEDS: GABAPENTIN 300 MG (NEURONTIN) CAP PO SCH ×3 (08:43→20:22)
[2018-11-07] MEDS: cefTRIAXone FOR IV USE 1,000 MG in NS (IVPB) 50 ML IV SCH (08:43)
[2018-11-07] MEDS: POLYETHYLENE GLYCOL 17 GM (MIRALAX) PACK PO PRN (08:43)
[2018-11-07] MEDS: FAMOTIDINE 20 MG (PEPCID) TABLET PO SCH (08:43)
[2018-11-07] MEDS: ARTIFICAL TEARS 0.4 ML UNIT DOSE (REFRESH PLUS) OS SCH (08:43)
[2018-11-07] MEDS: morphine ER 30 MG (MS CONTIN) TAB PO SCH ×2 (08:43→20:22)
[2018-11-07] MEDS: FLUoxetine HCL 20 MG (PROzac) CAP PO SCH (08:43)
[2018-11-07] MEDS: OPTH OD SCH (08:44)
[2018-11-07] MEDS: LOTEMAX 0.5% OD SCH (08:44)
--- NOTE | 2018-11-07 09:14 | Physical Therapy Daily Note ---
PT Daily Note-Current Subjective Pt. in bed with nurse present and states "Im no good today". Nurse requests no Rx this date as pts. hgb is 5.3 and she will be receiving blood etc and perhaps a colonoscopy per pt. Transfers Therapy Code Descriptions/Definitions Functional [place] Measure: 0=Not Assessed/NA 4=Minimal Assistance 1=Total Assistance 5=Supervision or Setup 2=Maximal Assistance 6=Modified [place] 3=Moderate Assistance 7=Complete [place] Therapy Quality Codes: 6 Independent with activity with or without an assistive device 5 Patient requires set up or clean up by helper. Patient completes activity by themselves 4 Supervision or touching assist (CGA). [place] provide cues , steadying assist 3 The helper provides less than half the effort to complete the activity 2 The helper provides more than half the effort to complete the activity 1 Dependent. The helper does all the effort to complete an activity 7 Patient refused to complete or attempt activity 9 The patient did not perform the activity before the current illness or injury 88 Not attempted due to Medical conditions or safety concerns Weight Bearing Right Lower Extremity: Right Touch Toe Bearing Left Lower Extremity: Left Weight Bearing/Tolerated Assessment Current Status: Hold Per Dr/Nursing, No Treatment/Other Tests no Rx , low hgb PT Short Term Goals Short Term Goals Time Frame: Nov 13, 2018 Transfers (B,C,W/C) (FIM): 3 Gait (FIM): 1 Distance (FIM): 1=up to 49 ft Gait Distance Comment: 20' Gait Level of Assist: 3 Gait Assistive Device: FWW PT Plan Treatment/Plan Treatment Plan: Continue Plan of Care (as tolerated) Treatment Plan: Bed Mobility, Education, Functional Activity Liliana, Functional Strength, Gait, Safety, Therapeutic Exercise, Transfers Treatment Duration: Nov 13, 2018 Frequency: 6 times per week Estimated Hrs Per Day: .25 hour per day Patient and/or Family Agrees t: Yes Time/GCodes Time In: 835 Time Out: 838 Total Billed Treatment Time: 3 Total Billed Treatment 1, no Rx, no chg G Codes Necessary: No AMANDA JUAREZ ROBOTICS TECHNICIAN Nov 07, 2018 09:14
[2018-11-07] MEDS ORDERED: GOLYTELY POWDER 4000 ML BTL PO NR (09:15)
--- NOTE | 2018-11-07 09:21 | Progress Note-Hospitalist ---
Subjective HPI/CC On Admission Date Seen by Provider: Nov 07, 2018 Time Seen by Provider: 09:14 Pt is an 83yoCF known to me from recent admission for fall where DVT was diagnosed. She returned to the ER yesterday after another fall last night where she was unable to stand up due to bilateral knee pain. She states was getting up to go to the bathroom when he legs gave out underneath her and she fell on them. She denied any dizziness, syncope, or LOC. She states she has fallen 2 times in the past week. She has a history of bilateral knee replacements as well. Today she complains of pain in her knees but otherwise has no complaints. Subjective/Events-last exam Pt reports feeling well today. No complaints. No SOB or chest pain. Discussed with RN about hemoglobin. Discussed with patient and need for transfusion. Focused Exam Lactate Level 11/04/18 21:30: Lactic Acid Level 1.64 Objective Exam Vital Signs Vital Signs Date Time Temp Pulse Resp B/P (MAP) Pulse Ox O2 Delivery O2 Flow Rate FiO2 11/07/18 12:29 99.6 102 18 106/59 (75) 100 Nasal Cannula 4.00 Capillary Refill : Less Than 3 SecondsLess Than 3 Seconds General Appearance: No Apparent Distress, WD/WN, Chronically ill Respiratory: Lungs Clear, No Respiratory Distress Cardiovascular: Regular Rate, Rhythm, No Murmur Gastrointestinal: Normal Bowel Sounds, Non Tender, Soft Neurologic/Psychiatric: Alert, Oriented x3 Results/Procedures Lab Laboratory Tests 11/07/18 06:15 Patient resulted labs reviewed. Imaging: Reviewed Imaging Report Assessment/Plan Assessment and Plan Assess & Plan/Chief Complaint Right knee fracture Diagnosis/Problems Diagnosis/Problems (1) Normocytic anemia Assessment & Plan: 5.3 this AM FOBT ordered Trend Discussed with ortho about effusion of knee and hemoglobin drop Surgery consulted, discussed with Dr Mcdonald who will scope tomorrow Hold anticoagulation- discussed with patient (2) Closed fracture of right proximal tibia Status: Acute Assessment & Plan: Ortho consulted, appreciate recs Nonoperative management recommended Resume home pain medicines with morphine for breakthrough pain PT/OT ordered Agreeable to SNF placement, psychosocial rehabilitation counselor consulted Qualifiers: Encounter type: initial encounter Fracture morphology: unspecified fracture morphology Qualified Codes: S82.101A - Unspecified fracture of upper end of right tibia, initial encounter for closed fracture (3) Closed fracture of proximal end of left tibia and fibula Status: Acute Assessment & Plan: As above CT revealed old healed fracture, not acute Qualifiers: Encounter type: initial encounter Qualified Codes: S82.102A - Unspecified fracture of upper end of left tibia, initial encounter for closed fracture; S82.832A - Other fracture of upper and lower end of left fibula, initial encounter for closed fracture (4) UTI (urinary tract infection) Assessment & Plan: Not sepsis Continue rocephin Urine culture gorwing e coli- await sensitivities Blood culture NGTD Qualifiers: Urinary tract infection type: acute cystitis Hematuria presence: with hematuria Qualified Codes: N30.01 - Acute cystitis with hematuria (5) DVT (deep venous thrombosis) Status: Acute Assessment & Plan: Diagnosed 10/14/18 2nd episode of 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 Hold Xarelto due to anemia as discussed with patient Discussed possible need for IVC filter with patient, will discuss with surgeyr and radiology about placement Discussed risks with patient who expresses understanding and familiarity with filters as her daughter has one Qualifiers: DVT location: lower extremity Affected thrombotic vein of extremity: femoral Chronicity: chronic Laterality: left Qualified Codes: I82.512 - Chronic embolism and thrombosis of left femoral vein (6) Thrombocytopenia Assessment & Plan: Reviewed and chronic but down today Trend- consider HIT testing if continue to drop but will stop Lovenox Likely consumptive from clot Trend (7) Hypoxia Assessment & Plan: Hypoxic on arrival but was on room air Titrate to keep sats >90 Pulm consulted, appreciate recs (8) Hypomagnesemia Status: Acute Assessment & Plan: Replaced Clinical Quality Measures DVT/VTE Risk/Contraindication: Risk Factor Score Per Nursin RFS Level Per Nursing on Admit: 4+=Very High RIZWAN VIDAL MD Nov 07, 2018 09:21
[2018-11-07 09:31] LABS: HEMOGLOBIN 5.3 G/DL (11.5-16.0); MEAN CORPUSCULAR HEMOGLOBIN 28 PG (25-34)
[2018-11-07 09:32] LABS: HEMATOCRIT 18 % (35-52); MEAN CORPUSCULAR HGB CONC 29 G/DL (32-36); MEAN CORPUSCULAR VOLUME 97 FL (80-99); MEAN PLATELET VOLUME 11.6 FL (7.4-10.4); PLATELET COUNT 47 10^3/uL (130-400); RED CELL DISTRIBUTION WIDTH 15.5 % (10.0-14.5)
[2018-11-07 09:35] LABS: ABSOLUTE RETIC # 55 10e9/L (24-90); BASOPHILS % (AUTO) 0 % (0-10); EOSINOPHILS # (AUTO) 0.6 10^3/uL (0.0-0.3); EOSINOPHILS % (AUTO) 10 % (0-10); LYMPHOCYTES # (AUTO) 1.2 X 10^3 (1.0-4.0); LYMPHOCYTES % (AUTO) 20 % (12-44); MONOCYTES # (AUTO) 0.5 X 10^3 (0.0-1.0); MONOCYTES % (AUTO) 8 % (0-12); NEUTROPHILS # (AUTO) 3.8 X 10^3 (1.8-7.8); NEUTROPHILS % (AUTO) 63 % (42-75); RETICULOCYTE % 3.02 % (0.50-2.40)
[2018-11-07 09:37] LABS: WHITE BLOOD COUNT 6.1 10^3/uL (4.3-11.0)
--- NOTE | 2018-11-07 09:47 | Pulmonary Progress Note ---
JACQUIEJANE Richards STUDENT 11/07/18 0947: Subjective Date Seen by a Provider: Nov 07, 2018 Time Seen by a Provider: 10:45 Subjective/Events-last exam Patient is concerned about needing a scope due to her anemia. She is currently being transfused 1 bag. She denies SOB and cough this morning. She is still having bilateral leg pain and back pain. Review of Systems General: No Chills, No Night Sweats; Other (anxiety) Pulmonary: No Dyspnea, No Cough, No Pleuritic Chest Pain Cardiovascular: No: Chest Pain Musculoskeletal: leg pain Sepsis Event Evaluation Height, Weight, BMI Height: 5'0.00" Weight: 133lbs. 4.0oz. 60.538458ha; 24.6 BMI Method:Stated Focused Exam Lactate Level 11/04/18 21:30: Lactic Acid Level 1.64 Exam Exam Vital Signs Date Time Temp Pulse Resp B/P (MAP) Pulse Ox O2 Delivery O2 Flow Rate FiO2 11/07/18 07:49 97.3 95 18 89/45 (60) 99 Nasal Cannula 4.00 11/07/18 04:22 97.0 93 18 104/56 (72) 97 Nasal Cannula 4.00 11/07/18 04:00 Nasal Cannula 4.00 11/07/18 00:37 97.9 93 18 108/52 (70) 97 Nasal Cannula 4.00 11/07/18 00:00 Nasal Cannula 4.00 11/06/18 21:00 Nasal Cannula 4.00 11/06/18 20:00 Nasal Cannula 4.00 11/06/18 19:28 99.5 96 18 103/59 (74) 100 Nasal Cannula 4.00 11/06/18 16:30 99.0 91 18 117/66 (83) 100 Nasal Cannula 4.00 11/06/18 16:00 95 Nasal Cannula 4.00 11/06/18 15:30 Nasal Cannula 4.00 11/06/18 13:40 98.8 91 18 121/71 (88) 97 Nasal Cannula 4.00 11/06/18 13:02 96 12 120/82 (95) 11/06/18 13:00 91 11/06/18 12:10 95 Nasal Cannula 4.00 11/06/18 12:00 99 11 118/68 (85) 11/06/18 11:00 85 15 11/06/18 10:00 93 10 123/80 (94) I & O 11/07/18 07:00 Intake Total 725 ml Output Total 950 ml Balance -225 ml Height & Weight Height: 5'0.00" Weight: 133lbs. 4.0oz. 60.384512ho; 24.6 BMI Method:Stated General Appearance: WD/WN, Anxious, Chronically ill HEENT: PERRL/EOMI, Pharynx Normal; No Moist Mucous Membranes Neck: Non Tender, Supple Respiratory: Lungs Clear, No Respiratory Distress Cardiovascular: Regular Rate, Rhythm, No Murmur Capillary Refill: Less Than 3 Seconds Peripheral Pulses: 1+ Dorsalis Pedis (R), 1+ Left Dors-Pedis (L) Gastrointestinal: normal bowel sounds, soft Extremity: Normal Capillary Refill, No Calf Tenderness Neurologic/Psychiatric: Alert, Oriented x3 Skin: Normal Color, Warm/Dry Lymphatic: No Adenopathy Results Lab Laboratory Tests 11/06/18 06:32 11/07/18 06:15 Assessment/Plan Assessment/Plan Acute on chronic respiratory failure -Oxygen -- Titrate oxygen to sats >90% -Will probably need home 02 COPDAE with hypoxia -On nocturnal oxygen at home -Titrate oxygen to sats >90% -SVNs ARF with decreased UO - now improved - IVF to NS at 75/hr S/p fall with bilateral tibia fracture and left fibula fracture -Ortho recommended no surgery at this time -Pain control Morphine and Vicodin. Confusion/metabolic encephalopathy - improved -Monitor UTI with sepsis - not severe sepsis -Rocephin -Cultures show E.coli, sensitivities pending Recent LLE DVT - pt has fallen multiple times -Hold anticoag due to anemia Normocytic anemia -5.3 today -FOBT ordered -Mcdonald to scope effusion of knee tomorrow to determine if associated with Hb drop -Hold anticoag SWAPNA WALKER DO 11/07/18 1146: Subjective Time Seen by a Provider: 11:39 Subjective/Events-last exam Denies SOB, and cough. HB has dropped to 5.8. Dr. Viramontes has already ordered 1 unit transfusion. Exam Exam General Appearance: WD/WN, Anxious, Chronically ill HEENT: PERRL/EOMI, Pharynx Normal; No Moist Mucous Membranes Neck: Non Tender, Supple Respiratory: Lungs Clear, No Respiratory Distress Cardiovascular: Regular Rate, Rhythm, No Murmur Gastrointestinal: normal bowel sounds, soft Extremity: Normal Capillary Refill, No Calf Tenderness Neurologic/Psychiatric: Alert, Oriented x3 Skin: Normal Color, Warm/Dry Lymphatic: No Adenopathy Assessment/Plan Assessment/Plan Acute on chronic respiratory failure -Oxygen -- Titrate oxygen to sats >90% -Will probably need home 02 COPD- currently Stable -On nocturnal oxygen at home -Titrate oxygen to sats >90% -SVNs Hypotension with anemia -Monitor close -Dr. Mcdonald is also following ARF with decreased UO - now improved - IVF to NS at 75/hr S/p fall with bilateral tibia fracture and left fibula fracture -Ortho recommended no surgery at this time -Pain control Morphine and Vicodin. Confusion/metabolic encephalopathy - improved -Monitor UTI with sepsis - not severe sepsis -Rocephin -Cultures show E.coli, sensitivities pending Recent LLE DVT - pt has fallen multiple times -Hold anticoag due to anemia Normocytic anemia -5.3 today -FOBT ordered -Tamara to scope effusion of knee tomorrow to determine if associated with Hb drop -Hold anticoag JANE DHILLON STUDENT Nov 07, 2018 09:47 SWAPNA WALKER DO Nov 07, 2018 11:46
[2018-11-07 10:21] LABS: BAND NEUTROPHILS 5 %; BASOPHILS % (MANUAL) 1 %; EOSINOPHILS % (MANUAL) 10 %; LYMPHOCYTES % (MANUAL) 20 %; MONOCYTES % (MANUAL) 10 %; NEUTROPHILS % (MANUAL) 54 %
[2018-11-07 10:22] LABS: ANISOCYTOSIS SLIGHT; MICROCYTOSIS SLIGHT
[2018-11-07] MEDS ORDERED: RT-ALBUTEROL/IPRATROPIUM 3 ML (DUONEB) VIAL INH PRN (11:45)
--- NOTE | 2018-11-07 12:00 | NUR ---
DAUGHTER CHARI MONROE IS HERE. SHE IS UPSET THAT THEY ARE TRAINING SOMEONE TO PUT IN A PICC LINE. SHE JUST WANTS IT PUT AND IN AND BE DONE WITH IT, SHE ALSO WANTS TO KNOW WHAT IS GOING ON WITH HER MOM. NOTIFIED ABOUT BLOOD TRANSFUSION, EGD AND COLONOSCOPY (DR FLEMING)TOMORROW. SHE WANT TO KNOW WHEN AND WHAT TIME THEY WILL DO THE FILTER (DR MORRISON). HER PHONE HUMBER IS [phone]
[2018-11-07] MEDS: PANTOPRAZOLE 40 MG (PROTONIX) VIAL IV SCH ×2 (12:18→20:23)
--- NOTE | 2018-11-07 14:45 | NUR ---
PATIENTS' OUTPUT FOR LAST 8 HOURS IS 150 MLS. BLADDER SCAN SHOWS [address] VIDAL NOTIFIED. IVF RATE INCREASED TO 125.
--- NOTE | 2018-11-07 14:52 | CONSULTATION REPORT ---
DATE OF SERVICE: 11/07/2018 ATTENDING PRIMARY CARE PHYSICIAN: Titi Kelly MD. ADMITTING PHYSICIAN: Dr. Viramontes. HISTORY OF PRESENT ILLNESS: The patient is an 83-year-old female who was admitted for shortness of breath as well as a presyncopal episode without loss of consciousness. Upon getting out of bed, she felt very dizzy and then fell. She landed on her knees and was unable to bear weight on her lower extremities. Upon arrival to the Emergency Department, she was hypoxic with oxygen saturation 73%, which did improve with a high-flow mask. She was recently hospitalized for acute left lower extremity DVT. On her initial visit, an ultrasound was performed of the lower extremities which did indicate a partially occlusive left lower extremity femoral vein deep vein thrombosis. A spiral CT of the chest was also performed, which did not show any signs of pulmonary embolism; however, she did have exacerbation of COPD that caused her shortness of breath. Her initial hemoglobin was stable in the 11 to 10 range; however, after being on anticoagulation with Xarelto, she had a significant drop in her hemoglobin to the 5 range. She has not had a bowel movement since she has been here. She reports that she has had some issues with reflux and regurgitation in the past and has been on an acid master control operator at home. She reports that she has had a colonoscopy before in the past; however, she cannot recall when that was or the findings. It appears that she has had some form of colon resection in the past as well for what appears to be benign disease. Due to her deep vein thrombosis and contraindication anticoagulation with active bleeding, we will proceed with a venogram and placement of an inferior vena cava filter. PAST MEDICAL HISTORY: COPD, degenerative joint disease, hypertension, history of DVT, chronic urinary tract infection, anxiety, and depression. PAST SURGICAL HISTORY: Hiatal hernia repair, colonic resection, bilateral total knee arthroplasty, and bilateral femur ORIF. ALLERGIES: TAPE, ASPIRIN, MEPERIDINE, AND NITROFURANTOIN. MEDICATIONS: Famotidine 20 mg b.i.d., diclofenac 100 mg gel b.i.d., fesoterodine 8 mg daily, fluoxetine 20 mg daily, gabapentin 300 mg b.i.d., hydrocodone p.r.n., hydrocortisone cream p.r.n., loteprednol drops daily, montelukast 10 mg daily, morphine 30 mg b.i.d., Zofran 8 mg q.8 hours p.r.n., MiraLax 17 g p.r.n., Xarelto 20 mg daily, and Carafate 1 g b.i.d. SOCIAL HISTORY: Negative smoke, negative alcohol. FAMILY HISTORY: Father had cardiovascular disease. Mother had colon cancer, diabetes. VITAL SIGNS: Temperature is 99.6, blood pressure 106/59, pulse 60's, respirations 18, and pulse ox 100% on 4 liters nasal cannula. REVIEW OF SYSTEMS: A well-nourished female, currently in no acute distress. She is not experiencing any shortness of breath or difficulty breathing. No chest pain, palpitations, diaphoresis. No cough or sputum production. No nausea, vomiting, no bowel movement since being admitted. She does not report any previous red blood per rectum nor any dark tarry stools. No fever or chills. No recent inadvertent weight loss. All other review of systems is negative. PHYSICAL EXAMINATION: CHEST: Scattered expiratory wheezes bilaterally. HEART: Regular, no murmurs. EXTREMITIES: Bilateral lower extremity edema +1/3, negative Homans sign. HEENT: No scleral icterus. NECK: No cervical lymphadenopathy. ABDOMEN: Soft, nontender, and nondistended. SKIN: Warm, dry. LABORATORY DATA: WBC is 6.1, hemoglobin 5.3, hematocrit 18, and platelets 47. BUN is 36, creatinine 1.12, and potassium 4.2. ASSESSMENT AND PLAN: An 83-year-old female with recurrent lower extremity deep vein thrombosis with contraindication to anticoagulation with rivaroxaban secondary to active bleeding, most likely of a gastrointestinal tract. At this time, we will hold on anticoagulation and proceed with a venogram and placement of an inferior vena cava filter. Job ID: [id number] DocumentID: [id number] Dictated Date: 11/07/2018 14:17:50 Blind Stitch Machine Operator Date: 11/07/2018 14:51:22 Dictated By: JAGJIT MORRISON MD [facility]
[2018-11-07] MEDS: HYDROcodone/APAP 7.5 MG/325 MG (LORTAB, LORCET PLUS) TABLET PO PRN ×2 (17:00→23:49)
[2018-11-07 17:20] LABS: BASOPHILS % (AUTO) 0 % (0-10); EOSINOPHILS # (AUTO) 0.4 10^3/uL (0.0-0.3); EOSINOPHILS % (AUTO) 7 % (0-10); LYMPHOCYTES # (AUTO) 1.1 X 10^3 (1.0-4.0); LYMPHOCYTES % (AUTO) 20 % (12-44); MEAN CORPUSCULAR HEMOGLOBIN 30 PG (25-34); MEAN CORPUSCULAR HGB CONC 32 G/DL (32-36); MEAN CORPUSCULAR VOLUME 93 FL (80-99); MEAN PLATELET VOLUME 12.1 FL (7.4-10.4); MONOCYTES # (AUTO) 0.4 X 10^3 (0.0-1.0); MONOCYTES % (AUTO) 8 % (0-12); NEUTROPHILS # (AUTO) 3.8 X 10^3 (1.8-7.8); NEUTROPHILS % (AUTO) 66 % (42-75); PLATELET COUNT 53 10^3/uL (130-400); RED CELL DISTRIBUTION WIDTH 16.6 % (10.0-14.5); WHITE BLOOD COUNT 5.8 10^3/uL (4.3-11.0)
[2018-11-07 17:36] LABS: HEMATOCRIT 20 % (35-52); HEMOGLOBIN 6.5 G/DL (11.5-16.0)
--- NOTE | 2018-11-07 17:39 | NUR ---
CALLED DR VIDAL WITH CRITICAL LAB VALUES HGB 6.5 HCT 20.1 TRANSFUSE 1 UNIT PRBC
--- NOTE | 2018-11-07 19:56 | Consultation ---
History of Present Illness History of Present Illness Patient Consulted On(piotr/time) 11/07/18 19:51 Date Seen by Provider: Nov 07, 2018 Time Seen by Provider: 08:35 Reason for Visit: fall on 11/04/2018 History of Present Illness consult requested by Dr. Viramontes for anemia. Patient is a 83-year-old female who recently been diagnosed with deep venous thrombosis. She has been on Xarelto. Patient hemoglobin was in the 10-11 range but then dropped down during hospitalization to 5 range. Patient states that she is diagnosed any blood in her stools. Patient has had previous colonoscopy but is not sure when the last time she had one was a some years ago she states. Patient does not have any abdominal pain. She does have history of reflux symptoms which she has taken medication for previously. Patient has not had a bowel movement yet. patient initially upon presentation was hypoxic and was having shortness of breath which she is not having at this time. patient with recent falls and now with bilateral lower extremity fractures. Patient has no other complaints at this time. She denies any nausea vomiting fever sweats chills shortness of breath or chest pain at this time. Allergies and Home Medications Allergies Coded Allergies: adhesive tape (Verified Allergy, Mild, RASH, 10/12/18) aspirin (Verified Allergy, Unknown, 10/12/18) meperidine (Verified Allergy, Unknown, 10/12/18) nitrofurantoin (Verified Allergy, Unknown, 10/12/18) Uncoded Allergies: SURGICAL TAPE (Allergy, Unknown, 05/14/07) Home Medications Calcium Carbonate/Vitamin D3 1 Each Capsule, 1 CAP PO BID, (Reported) Diclofenac Sodium 100 Gm Gel..gram., TP BID PRN for JOINT PAIN, (Reported) Famotidine 20 Mg Tablet, 20 MG PO BID, (Reported) Fesoterodine Fumarate 8 Mg Tab.er.24h, 8 MG PO HS, (Reported) Fluoxetine HCl 20 Mg Capsule, 20 MG PO DAILY, (Reported) Gabapentin 300 Mg Capsule, 300 MG PO TID, (Reported) Hydrocodone/Acetaminophen 1 Each Tablet, 1 TAB PO Q6H PRN for PAIN-MODERATE, ( Reported) Hydrocortisone 28.35 Gm Cream.appl, TOP QID PRN for HEMORRHOIDS, (Reported) Loteprednol Etabonate 5 Gm Drops.gel, 1 DROP OD DAILY, (Reported) Montelukast Sodium 10 Mg Tablet, 10 MG PO DAILY, (Reported) Morphine Sulfate 30 Mg Tablet.er, 30 MG PO BID, (Reported) Ondansetron 8 Mg Tab.rapdis, 8 MG PO Q8H PRN for NAUSEA/VOMITING-1ST LINE, ( Reported) Polyethylene Glycol 3350 17 Gm Powd.pack, 17 GM PO DAILY PRN for CONSTIPATION- 2ND LINE, (Reported) Polyvinyl Alcohol/Povidone 15 Ml Drops, 1 DROP OS DAILY, (Reported) Rivaroxaban 20 Mg Tablet, 20 MG PO 1700, (Reported) Saliva Stimulant Agents Comb.3 1 Each [place], 1 SPRAY MM BID PRN for DRY MOUTH, ( Reported) Sucralfate 1 Gm Tablet, 1 GM PO BID, (Reported) Patient Home Medication List Home Medication List Reviewed: Yes Past Sohnexb-Ywnsep-Lylcwx Hx Patient Social History Alcohol Use: Denies Use Recreational Drug Use: No Smoking Status: Never a Smoker 2nd Hand Smoke Exposure: No Recent Foreign Travel: No Contact w/Someone Who Travel: No Recent Infectious Disease Expo: No Recent Hopitalizations: Yes (OCT 12-) Immunizations Up To Date Tetanus Booster (TDap): Less than 5yrs Date of Pneumonia Vaccine: Jul 09, 2018 Date of Influenza Vaccine: Jul 09, 2018 Seasonal Allergies Seasonal Allergies: No Surgeries History of Surgeries: Yes (HIATAL HERNIA SX, COLON MASS REMOVED; LEFT HIP REPLACEMENT; BILATERAL KNEE REPLACEMENTS; BILATERAL FEMUR FX/ORIF'S ) Surgeries: Abdominal, Bowel Surgery, Joint Replacement, Orthopedic (bilateral knee replacements) Respiratory History of Respiratory Disorde: Yes (OXYGEN AT HS) Respiratory Disorders: COPD, Emphysema Cardiovascular History of Cardiac Disorders: Yes Cardiac Disorders: Deep Vein Thrombosis, Hypertension Neurological History of Neurological Disord: No 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 System Hx 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 Disorders: No Genitourinary History of Genitourinary Disor: Yes Genitourinary Disorders: Renal Failure, UTI-Chronic Gastrointestinal History of Gastrointestinal Di: Yes (COLON RESECTION) Gastrointestinal Disorders: Gastroesophageal Reflux, Hiatal Hernia Musculoskeletal History of Musculoskeletal Dis: Yes (BILATERAL KNEES AND R HIP REPLACED AND BILATERAL FEMUR FX/ORIF'S ) Musculoskeletal Disorders: Osteoporosis, Arthritis, Fractures Endocrine History of Endocrine Disorders: No HEENT History of HEENT Disorders: Yes HEENT Disorders: Glaucoma Hearing Impairment: Hard of Hearing Cancer History of Cancer: No Psychosocial History of Psychiatric Problem: Yes Behavioral Health Disorders: Sleep Difficulties, Anxiety, Depression Integumentary History of Skin or Integumenta: No Blood Transfusions History of Blood Disorders: Yes Adverse Reaction to a Blood Tr: No Family Medical History Significant Family History: Cancer, Diabetes Family Medial History: Alcoholism 19 FATHER Cardiovascular disease 19 MOTHER Colon cancer 19 MOTHER Diabetes mellitus 19 MOTHER Neoplasm 19 MOTHER (colon ca w/ mets to liver ) Respiratory disorder 19 FATHER No Family History of: AIDS Abdominal aortic aneurysm Arthritis Asthma Dementia Drug abuse Hypertension Kidney disease Myocardial infarction Psychosocial problem Seizure disorder Severe allergy Thyroid disease Tuberculosis Review of Systems-General Constitutional: no symptoms reported EENTM: no symptoms reported Respiratory: see HPI Cardiovascular: no symptoms reported Gastrointestinal: no symptoms reported Genitourinary: no symptoms reported Musculoskeletal: no symptoms reported Skin: no symptoms reported Psychiatric/Neurological: No Symptoms Reported Physical Exam-General Problems Physical Exam Vital Signs Vital Signs - First Documented Capillary Refill : Less Than 3 SecondsLess Than 3 Seconds General Appearance: no apparent distress HEENT: PERRL/EOMI, normal ENT inspection Neck: supple, normal inspection Respiratory: chest non-tender, no respiratory distress, no accessory muscle use Cardiovascular: regular rate, rhythm Gastrointestinal: non tender, soft, no organomegaly Rectal: deferred Back: no CVA tenderness Extremities: other (right leg and brace. Bilateral slight edema) Neurologic/Psychiatric: scrap cutter II-XII nml as tested, no motor/sensory deficits, alert, normal mood/affect, oriented x 3 Skin: normal color, warm/dry Lymphatic: no adenopathy Data Review Labs Laboratory Tests 11/07/18 06:15: White Blood Count 6.1, Red Blood Count 1.86L, Hemoglobin 5.3*L, Hematocrit 18*L , Mean Corpuscular Volume 97, Mean Corpuscular Hemoglobin 28, Mean Corpuscular Hemoglobin Concent 29L, Red Cell Distribution Width 15.5H, Platelet Count 47L, Mean Platelet Volume 11.6H, Neutrophils (%) (Auto) 63, Lymphocytes (%) (Auto) 20 , Monocytes (%) (Auto) 8, Eosinophils (%) (Auto) 10, Basophils (%) (Auto) 0, Neutrophils # (Auto) 3.8, Lymphocytes # (Auto) 1.2, Monocytes # (Auto) 0.5, Eosinophils # (Auto) 0.6H, Basophils # (Auto) 0.0, Neutrophils % (Manual) 54, Lymphocytes % (Manual) 20, Monocytes % (Manual) 10, Eosinophils % (Manual) 10, Basophils % (Manual) 1, Band Neutrophils 5, Basophilic Stippling SLIGHT, Anisocytosis SLIGHT, Microcytosis SLIGHT, Absolute Reticulocyte Count 55, Percent Reticulocyte Count 3.02H, Sodium Level 139, Potassium Level 4.2, Chloride Level 108H, Carbon Dioxide Level 26, Anion Gap 5, Blood Urea Nitrogen 36H, Creatinine 1.12, Estimat Glomerular Filtration Rate 46, BUN/Creatinine Ratio 32, Glucose Level 90, Calcium Level 7.3L 11/07/18 17:10: White Blood Count 5.8, Red Blood Count 2.16L, Hemoglobin 6.5#*L, Hematocrit 20*L , Mean Corpuscular Volume 93, Mean Corpuscular Hemoglobin 30, Mean Corpuscular Hemoglobin Concent 32, Red Cell Distribution Width 16.6H, Platelet Count 53L, Mean Platelet Volume 12.1H, Neutrophils (%) (Auto) 66, Lymphocytes (%) (Auto) 20 , Monocytes (%) (Auto) 8, Eosinophils (%) (Auto) 7, Basophils (%) (Auto) 0, Neutrophils # (Auto) 3.8, Lymphocytes # (Auto) 1.1, Monocytes # (Auto) 0.4, Eosinophils # (Auto) 0.4H, Basophils # (Auto) 0.0 11/07/18 18:55: Stool Occult Blood Immunoassay NEGATIVE Microbiology 11/04/18 Blood Culture - Preliminary, Resulted No growth 11/04/18 Influenza Types A,B Antigen (GHADA) - Final, Complete 11/04/18 Urine Culture - Final, Complete Escherichia coli Assessment/Plan Assessment/Plan Assessment/Plan Anemia Likely from GI tract Bilateral lower extremity fractures Deep venous thrombosis on Xarelto currently on hold Discussed with patient need for EGD and colonoscopy for evaluation of bleeding source. Patient understands risk and benefits and wishes to proceed. Clear liquids today and Npo After midnight and GoLYTELY prep today. Patient also discussed IVC filter placement which she is familiar with and we' ll consult Dr. MORRISON for placement. transfuse when necessary. Started on Protonix 40 mg IV twice a day Diagnosis/Problems Diagnosis/Problems (1) Normocytic anemia Assessment & Plan: 5.3 this AM FOBT ordered Trend Discussed with ortho about effusion of knee and hemoglobin drop Surgery consulted, discussed with Dr Fleming who will scope tomorrow Hold anticoagulation- discussed with patient (2) Closed fracture of right proximal tibia Status: Acute Assessment & Plan: Ortho consulted, appreciate recs Nonoperative management recommended Resume home pain medicines with morphine for breakthrough pain PT/OT ordered Agreeable to SNF placement, social human services assistants consulted Qualifiers: Qualified Codes: S82.101A - Unspecified fracture of upper end of right tibia , initial encounter for closed fracture (3) Closed fracture of proximal end of left tibia and fibula Status: Acute Assessment & Plan: As above CT revealed old healed fracture, not acute Qualifiers: Qualified Codes: S82.102A - Unspecified fracture of upper end of left tibia , initial encounter for closed fracture; S82.832A - Other fracture of upper and lower end of left fibula, initial encounter for closed fracture (4) UTI (urinary tract infection) Assessment & Plan: Not sepsis Continue rocephin Urine culture gorwing e coli- await sensitivities Blood culture NGTD Qualifiers: Qualified Codes: N30.01 - Acute cystitis with hematuria (5) DVT (deep venous thrombosis) Status: Acute Assessment & Plan: Diagnosed 10/14/18 2nd episode of 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 Hold Xarelto due to anemia as discussed with patient Discussed possible need for IVC filter with patient, will discuss with surgeyr and radiology about placement Discussed risks with patient who expresses understanding and familiarity with filters as her daughter has one Qualifiers: Qualified Codes: I82.512 - Chronic embolism and thrombosis of left femoral vein (6) Thrombocytopenia Assessment & Plan: Reviewed and chronic but down today Trend- consider HIT testing if continue to drop but will stop Lovenox Likely consumptive from clot Trend (7) Hypoxia Assessment & Plan: Hypoxic on arrival but was on room air Titrate to keep sats >90 Pulm consulted, appreciate recs (8) Hypomagnesemia Status: Acute Assessment & Plan: Replaced Clinical Quality Measures DVT/VTE Risk/Contraindication: Risk Factor Score Per Nursin RFS Level Per Nursing on Admit: 4+=Very High ELISA FLEMING DO Nov 07, 2018 19:56
[2018-11-07] MEDS: TOLTERODINE LA 4 MG (DETROL) CAP PO SCH (20:22)
[2018-11-07] MEDS: MONTELUKAST 10 MG (SINGULAIR) TAB PO SCH (20:23)
[2018-11-08] MEDS: NS IV 1000 ML 1,000 ML IV SCH ×3 (01:49→16:21)
--- NOTE | 2018-11-08 03:24 | NUR ---
PT WAS ABLE TO FINISH ALL OF THE GOLYTELY. PT HAD 1 LARGE HARD BM AND HAS HAD MULTIPLE LOOSE STOOLS SINCE.
[2018-11-08 04:03] VITALS: BP 106/58
[2018-11-08] MEDS: SUCRALFATE 1 GM (CARAFATE) TAB PO SCH ×2 (04:29→16:21)
[2018-11-08] MEDS ORDERED: LACTATED RINGERS 1,000 ML IV PRN ×2 (06:58→09:26)
[2018-11-08 07:06] LABS: BASOPHILS % (AUTO) 0 % (0-10); EOSINOPHILS # (AUTO) 0.2 10^3/uL (0.0-0.3); EOSINOPHILS % (AUTO) 4 % (0-10); HEMATOCRIT 22 % (35-52); HEMOGLOBIN 7.2 G/DL (11.5-16.0); LYMPHOCYTES # (AUTO) 0.7 X 10^3 (1.0-4.0); LYMPHOCYTES % (AUTO) 14 % (12-44); MEAN CORPUSCULAR HEMOGLOBIN 30 PG (25-34); MEAN CORPUSCULAR HGB CONC 33 G/DL (32-36); MEAN CORPUSCULAR VOLUME 90 FL (80-99); MEAN PLATELET VOLUME 11.8 FL (7.4-10.4); MONOCYTES # (AUTO) 0.5 X 10^3 (0.0-1.0); MONOCYTES % (AUTO) 9 % (0-12); NEUTROPHILS # (AUTO) 3.7 X 10^3 (1.8-7.8); NEUTROPHILS % (AUTO) 73 % (42-75); PLATELET COUNT 50 10^3/uL (130-400); RED CELL DISTRIBUTION WIDTH 16.9 % (10.0-14.5)
--- NOTE | 2018-11-08 07:08 | Pulmonary Progress Note ---
JACQUIEJANE Richards STUDENT 11/08/18 0708: Subjective Date Seen by a Provider: Nov 08, 2018 Time Seen by a Provider: 07:03 Subjective/Events-last exam No complaints today. No SOB or cough. Patient had 2 blood transfusions yesterday and H/H has stabilized. Patient has completed bowel prep for EGD/ Colonoscopy today. Dr. Castaneda consulted for IVC filter placement due to contraindication to anticoagulation due to bleeding. Review of Systems General: No Chills, No Night Sweats; Fatigue HEENT: No Head Aches, No Post Nasal Drip, No Sore Throat Pulmonary: No Dyspnea, No Cough, No Pleuritic Chest Pain Cardiovascular: No: Chest Pain, Palpitations, Paroxysmal Noc. Dyspnea, Edema Gastrointestinal: No: Nausea, Vomiting, Abdominal Pain Genitourinary: No Dysuria, No Frequency Musculoskeletal: leg pain Neurological: No: Weakness, Confusion Sepsis Event Evaluation Height, Weight, BMI Height: 5'0.00" Weight: 149lbs. 0.0oz. 67.088658vp; 24.6 BMI Method:Stated Exam Exam Vital Signs Date Time Temp Pulse Resp B/P (MAP) Pulse Ox O2 Delivery O2 Flow Rate FiO2 11/08/18 06:42 Nasal Cannula 4.00 11/08/18 04:03 99.2 81 18 106/58 (74) 100 Nasal Cannula 4.00 11/07/18 23:11 98.9 71 18 120/59 (79) 98 Nasal Cannula 4.00 11/07/18 21:40 99.0 92 18 114/55 99 Nasal Cannula 4.00 11/07/18 21:00 Nasal Cannula 4.00 11/07/18 20:13 99 Nasal Cannula 4.00 11/07/18 19:35 98.8 75 18 99/59 (72) 100 Nasal Cannula 4.00 11/07/18 19:10 99.1 84 18 104/56 100 Nasal Cannula 4.00 11/07/18 18:55 99.8 81 18 100/54 99 Nasal Cannula 4.00 11/07/18 16:55 99.0 97 18 131/83 (99) 98 Nasal Cannula 4.00 11/07/18 12:29 99.6 102 18 106/59 (75) 100 Nasal Cannula 4.00 11/07/18 12:19 99.6 102 18 106/59 100 1/30/19 11:27 98 Nasal Cannula 4.00 11/07/18 10:00 100.1 95 20 87/53 100 Nasal Cannula 4.00 11/07/18 09:45 100.0 105 22 80/50 100 Nasal Cannula 4.00 11/07/18 09:00 Nasal Cannula 4.00 11/07/18 07:49 97.3 95 18 89/45 (60) 99 Nasal Cannula 4.00 I & O 11/08/18 07:00 Intake Total 4300 ml Output Total 625 ml Balance 3675 ml Height & Weight Height: 5'0.00" Weight: 149lbs. 0.0oz. 67.855467ij; 24.6 BMI Method:Stated General Appearance: No Apparent Distress, Chronically ill, Thin HEENT: PERRL/EOMI, Moist Mucous Membranes Neck: Non Tender, Supple Respiratory: Lungs Clear, No Respiratory Distress Cardiovascular: Regular Rate, Rhythm, No Murmur Capillary Refill: Less Than 3 Seconds Peripheral Pulses: 1+ Dorsalis Pedis (R), 1+ Left Dors-Pedis (L) Gastrointestinal: non tender, soft, no organomegaly Extremity: Normal Capillary Refill, No Calf Tenderness Neurologic/Psychiatric: Alert, Oriented x3, Normal Mood/Affect Skin: Normal Color, Warm/Dry Lymphatic: No Adenopathy Results Lab Laboratory Tests 11/07/18 06:15 11/07/18 17:10 Assessment/Plan Assessment/Plan Acute on chronic respiratory failure -Oxygen -- Titrate oxygen to sats >90% -Will probably need home 02 COPD- currently Stable -On nocturnal oxygen at home -Titrate oxygen to sats >90% -SVNs Hypotension with anemia s/p 2 transfusions -Monitor close -Stable H/H today post transfusions: Hgb 7.2 today -Dr. Mcdonald planning to do colonoscopy and EGD today, stool occult negative - IVF to NS at 125/hr S/p fall with bilateral tibia fracture and left fibula fracture -Ortho recommended no surgery at this time -Pain control Morphine and Vicodin. UTI with sepsis - not severe sepsis -Continue Rocephin -Cultures show barros-sensitive E.coli Recent LLE DVT - pt has fallen multiple times -Hold anticoag due to anemia -Dr. Castaneda consulted for IVC filter placement Diagnosis/Problems Diagnosis/Problems (1) Normocytic anemia Assessment & Plan: 5.3 this AM FOBT ordered Trend Discussed with ortho about effusion of knee and hemoglobin drop Surgery consulted, discussed with Dr Mcdonald who will scope tomorrow Hold anticoagulation- discussed with patient (2) Closed fracture of right proximal tibia Status: Acute Assessment & Plan: Ortho consulted, appreciate recs Nonoperative management recommended Resume home pain medicines with morphine for breakthrough pain PT/OT ordered Agreeable to SNF placement, nursing home social worker consulted Qualifiers: Qualified Codes: S82.101A - Unspecified fracture of upper end of right tibia , initial encounter for closed fracture (3) Closed fracture of proximal end of left tibia and fibula Status: Acute Assessment & Plan: As above CT revealed old healed fracture, not acute Qualifiers: Qualified Codes: S82.102A - Unspecified fracture of upper end of left tibia , initial encounter for closed fracture; S82.832A - Other fracture of upper and lower end of left fibula, initial encounter for closed fracture (4) UTI (urinary tract infection) Assessment & Plan: Not sepsis Continue rocephin Urine culture gorwing e coli- await sensitivities Blood culture NGTD Qualifiers: Qualified Codes: N30.01 - Acute cystitis with hematuria (5) DVT (deep venous thrombosis) Status: Acute Assessment & Plan: Diagnosed 10/14/18 2nd episode of 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 Hold Xarelto due to anemia as discussed with patient Discussed possible need for IVC filter with patient, will discuss with surgeyr and radiology about placement Discussed risks with patient who expresses understanding and familiarity with filters as her daughter has one Qualifiers: Qualified Codes: I82.512 - Chronic embolism and thrombosis of left femoral vein (6) Thrombocytopenia Assessment & Plan: Reviewed and chronic but down today Trend- consider HIT testing if continue to drop but will stop Lovenox Likely consumptive from clot Trend (7) Hypoxia Assessment & Plan: Hypoxic on arrival but was on room air Titrate to keep sats >90 Pulm consulted, appreciate recs (8) Hypomagnesemia Status: Acute Assessment & Plan: Replaced SWAPNA WALKER DO 11/08/18 1100: Subjective Time Seen by a Provider: 10:57 Subjective/Events-last exam S/p [address] Mcdonald is planning EGD/Colonoscopy today. Dr. Castaneda is planning on placing a IVC filter. Exam Exam General Appearance: No Apparent Distress HEENT: PERRL/EOMI, Moist Mucous Membranes Neck: Non Tender Respiratory: Lungs Clear, No Respiratory Distress Cardiovascular: Regular Rate, Rhythm, No Murmur Peripheral Pulses: 1+ Dorsalis Pedis (R), 1+ Left Dors-Pedis (L) Gastrointestinal: non tender, soft Extremity: Normal Capillary Refill, No Calf Tenderness Neurologic/Psychiatric: Alert, Oriented x3, Normal Mood/Affect Skin: Normal Color, Warm/Dry Lymphatic: No Adenopathy Assessment/Plan Assessment/Plan Acute on chronic respiratory failure -Oxygen -- Titrate oxygen to sats >90% -Will probably need home 02 COPD- currently Stable -On nocturnal oxygen at home -Titrate oxygen to sats >90% -SVNs Hypotension with anemia s/p 2 transfusions -Monitor close -Stable H/H today post transfusions: Hgb 7.2 today -Dr. Mcdonald planning to do colonoscopy and EGD today, stool occult negative - IVF to NS at 125/hr S/p fall with bilateral tibia fracture and left fibula fracture -Ortho recommended no surgery at this time -Pain control Morphine and Vicodin. UTI with sepsis - not severe sepsis -Continue Rocephin -Cultures show barros-sensitive E.coli Recent LLE DVT - pt has fallen multiple times -Hold anticoag due to anemia -Dr. Castaneda consulted for IVC filter placement JANE DHILLON STUDENT Nov 08, 2018 07:08 SWAPNA WALKER DO Nov 08, 2018 11:00
[2018-11-08 07:20] LABS: CALCIUM 6.9 MG/DL (8.5-10.1); POTASSIUM 3.4 MMOL/L (3.6-5.0)
[2018-11-08] MEDS ORDERED: HEParin (CENTRAL IV FLUSH) 500 UNIT/5 ML SYR ONE (07:28)
[2018-11-08] MEDS ORDERED: LIDOCAINE 1% INJ 20 ML 20 ML VIAL ONE (07:28)
--- NOTE | 2018-11-08 07:28 | Diagnostic Imaging Report ---
INDICATION: Shortness of breath. COMPARISON: 11/07/2018. FINDINGS: Single view of the chest demonstrates cardiac enlargement with chronic interstitial changes. No focal infiltrate is seen. There is no pneumothorax or large effusion. Osseous structures are stable. IMPRESSION: No acute cardiopulmonary findings. Dictated by: Dictated on workstation # [id number]
[2018-11-08] MEDS ORDERED: PROPOFOL INJECTION 50 ML IV ONE (07:30)
--- NOTE | 2018-11-08 08:01 | Progress Note ---
Subjective Date Seen by a Provider: Nov 08, 2018 Time Seen by a Provider: 07:11 Subjective/Events-last exam Patient NPO at this time. No new complaints. Hgb up after 2 units pRBC. Denies blood in stools. Hemoccult negative. Prep yesterday. Denies n/v f ever sweats chills shortness of breath or chest pain. Objective Exam Vital Signs Date Time Temp Pulse Resp B/P (MAP) Pulse Ox O2 Delivery O2 Flow Rate FiO2 11/08/18 06:42 Nasal Cannula 4.00 11/08/18 04:03 99.2 81 18 106/58 (74) 100 Nasal Cannula 4.00 11/07/18 23:11 98.9 71 18 120/59 (79) 98 Nasal Cannula 4.00 11/07/18 21:40 99.0 92 18 114/55 99 Nasal Cannula 4.00 11/07/18 21:00 Nasal Cannula 4.00 11/07/18 20:13 99 Nasal Cannula 4.00 11/07/18 19:35 98.8 75 18 99/59 (72) 100 Nasal Cannula 4.00 11/07/18 19:10 99.1 84 18 104/56 100 Nasal Cannula 4.00 11/07/18 18:55 99.8 81 18 100/54 99 Nasal Cannula 4.00 11/07/18 16:55 99.0 97 18 131/83 (99) 98 Nasal Cannula 4.00 11/07/18 12:29 99.6 102 18 106/59 (75) 100 Nasal Cannula 4.00 11/07/18 12:19 99.6 102 18 106/59 100 11/07/18 11:27 98 Nasal Cannula 4.00 11/07/18 10:00 100.1 95 20 87/53 100 Nasal Cannula 4.00 11/07/18 09:45 100.0 105 22 80/50 100 Nasal Cannula 4.00 11/07/18 09:00 Nasal Cannula 4.00 I & O 11/08/18 07:00 Intake Total 4300 ml Output Total 625 ml Balance 3675 ml Capillary Refill : Less Than 3 SecondsLess Than 3 Seconds General Appearance: No Apparent Distress, Chronically ill, Thin HEENT: PERRL/EOMI, Moist Mucous Membranes Neck: Non Tender, Supple Respiratory: Lungs Clear, No Respiratory Distress Cardiovascular: Regular Rate, Rhythm, No Murmur Peripheral Pulses: 1+ Dorsalis Pedis (R), 1+ Left Dors-Pedis (L) Gastrointestinal: non tender, soft, no organomegaly Extremity: Normal Capillary Refill, No Calf Tenderness Neurologic/Psychiatric: Alert, Oriented x3, Normal Mood/Affect Skin: Normal Color, Warm/Dry Lymphatic: No Adenopathy Results Lab Laboratory Tests 11/07/18 17:10: White Blood Count 5.8, Red Blood Count 2.16L, Hemoglobin 6.5#*L, Hematocrit 20*L , Mean Corpuscular Volume 93, Mean Corpuscular Hemoglobin 30, Mean Corpuscular Hemoglobin Concent 32, Red Cell Distribution Width 16.6H, Platelet Count 53L, Mean Platelet Volume 12.1H, Neutrophils (%) (Auto) 66, Lymphocytes (%) (Auto) 20 , Monocytes (%) (Auto) 8, Eosinophils (%) (Auto) 7, Basophils (%) (Auto) 0, Neutrophils # (Auto) 3.8, Lymphocytes # (Auto) 1.1, Monocytes # (Auto) 0.4, Eosinophils # (Auto) 0.4H, Basophils # (Auto) 0.0 11/07/18 18:55: Stool Occult Blood Immunoassay NEGATIVE 11/08/18 06:47: White Blood Count 5.0, Red Blood Count 2.43L, Hemoglobin 7.2L, Hematocrit 22L, Mean Corpuscular Volume 90, Mean Corpuscular Hemoglobin 30, Mean Corpuscular Hemoglobin Concent 33, Red Cell Distribution Width 16.9H, Platelet Count 50L, Mean Platelet Volume 11.8H, Neutrophils (%) (Auto) 73, Lymphocytes (%) (Auto) 14 , Monocytes (%) (Auto) 9, Eosinophils (%) (Auto) 4, Basophils (%) (Auto) 0, Neutrophils # (Auto) 3.7, Lymphocytes # (Auto) 0.7L, Monocytes # (Auto) 0.5, Eosinophils # (Auto) 0.2, Basophils # (Auto) 0.0, Sodium Level 139, Potassium Level 3.4L, Chloride Level 107, Carbon Dioxide Level 27, Anion Gap 5, Blood Urea Nitrogen 34H, Creatinine 1.00, Estimat Glomerular Filtration Rate 53, BUN/ Creatinine Ratio 34, Glucose Level 103, Calcium Level 6.9L Microbiology 11/04/18 Blood Culture - Preliminary, Resulted No growth 11/04/18 Influenza Types A,B Antigen (GHADA) - Final, Complete 11/04/18 Urine Culture - Final, Complete Escherichia coli Assessment/Plan Assessment/Plan Assessment/Plan Anemia Likely from GI tract Bilateral lower extremity fractures Deep venous thrombosis on Xarelto currently on hold Discussed with patient need for EGD and colonoscopy for evaluation of bleeding source. Patient prepped and understands risks and benefits. Patient also discussed IVC filter placement and plan for Dr. Castaneda today to place. transfuse when necessary. Protonix 40 mg IV twice a day Diagnosis/Problems Diagnosis/Problems (1) Normocytic anemia Assessment & Plan: 5.3 this AM FOBT ordered Trend Discussed with ortho about effusion of knee and hemoglobin drop Surgery consulted, discussed with Dr Mcdonald who will scope tomorrow Hold anticoagulation- discussed with patient (2) Closed fracture of right proximal tibia Status: Acute Assessment & Plan: Ortho consulted, appreciate recs Nonoperative management recommended Resume home pain medicines with morphine for breakthrough pain PT/OT ordered Agreeable to SNF placement, community mental health social worker consulted Qualifiers: Qualified Codes: S82.101A - Unspecified fracture of upper end of right tibia , initial encounter for closed fracture (3) Closed fracture of proximal end of left tibia and fibula Status: Acute Assessment & Plan: As above CT revealed old healed fracture, not acute Qualifiers: Qualified Codes: S82.102A - Unspecified fracture of upper end of left tibia , initial encounter for closed fracture; S82.832A - Other fracture of upper and lower end of left fibula, initial encounter for closed fracture (4) UTI (urinary tract infection) Assessment & Plan: Not sepsis Continue rocephin Urine culture gorwing e coli- await sensitivities Blood culture NGTD Qualifiers: Qualified Codes: N30.01 - Acute cystitis with hematuria (5) DVT (deep venous thrombosis) Status: Acute Assessment & Plan: Diagnosed 10/14/18 2nd episode of 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 Hold Xarelto due to anemia as discussed with patient Discussed possible need for IVC filter with patient, will discuss with surgeyr and radiology about placement Discussed risks with patient who expresses understanding and familiarity with filters as her daughter has one Qualifiers: Qualified Codes: I82.512 - Chronic embolism and thrombosis of left femoral vein (6) Thrombocytopenia Assessment & Plan: Reviewed and chronic but down today Trend- consider HIT testing if continue to drop but will stop Lovenox Likely consumptive from clot Trend (7) Hypoxia Assessment & Plan: Hypoxic on arrival but was on room air Titrate to keep sats >90 Pulm consulted, appreciate recs (8) Hypomagnesemia Status: Acute Assessment & Plan: Replaced Clinical Quality Measures DVT/VTE Risk/Contraindication: Risk Factor Score Per Nursin RFS Level Per Nursing on Admit: 4+=Very High ELISA MCDONALD DO Nov 08, 2018 08:01
[2018-11-08] MEDS ORDERED: NS IV 500 ML 500 ML IV SCH (08:10)
[2018-11-08 08:14] VITALS: BP 119/64
[2018-11-08] MEDS ORDERED: EPINEPHrine INJECTION 1 MG/ML AMP IM PRN (08:15)
[2018-11-08] MEDS ORDERED: IRON DEXTRAN INJECTION 25 MG in NS (IVPB) 5.75 ML IV ONE (08:15)
[2018-11-08] MEDS ORDERED: RT-ALBUTEROL SULF 2.5 MG/3 ML PRE-MIX VIAL IH PRN (08:15)
[2018-11-08] MEDS ORDERED: IRON DEXTRAN INJECTION 1,000 MG in NS (IVPB) 250 ML IV ONE (08:15)
[2018-11-08] MEDS ORDERED: diphenhydrAMINE 50 MG/ML INJ (BENADRYL) IV PRN (08:15)
[2018-11-08] MEDS ORDERED: HYDROCORTISONE 100 MG/2 ML (Solu-CORTEF) VIAL IV PRN (08:15)
[2018-11-08] MEDS: PANTOPRAZOLE 40 MG (PROTONIX) VIAL IV SCH ×2 (08:21→21:26)
[2018-11-08] MEDS: cefTRIAXone FOR IV USE 1,000 MG in NS (IVPB) 50 ML IV SCH ×2 (08:22→09:00)
--- NOTE | 2018-11-08 08:42 | Progress Note-Hospitalist ---
Subjective HPI/CC On Admission Date Seen by Provider: Nov 08, 2018 Time Seen by Provider: 08:37 Pt is an 83yoCF known to me from recent admission for fall where DVT was diagnosed. She returned to the ER yesterday after another fall last night where she was unable to stand up due to bilateral knee pain. She states was getting up to go to the bathroom when he legs gave out underneath her and she fell on them. She denied any dizziness, syncope, or LOC. She states she has fallen 2 times in the past week. She has a history of bilateral knee replacements as well. Today she complains of pain in her knees but otherwise has no complaints. Subjective/Events-last exam Pt reports doing well. Only complaint is feeling cold. Objective Exam Vital Signs Vital Signs Date Time Temp Pulse Resp B/P (MAP) Pulse Ox O2 Delivery O2 Flow Rate FiO2 11/09/18 11:59 99.2 84 18 115/55 95 Nasal Cannula 3.00 Capillary Refill : Less Than 3 SecondsLess Than 3 Seconds General Appearance: No Apparent Distress, WD/WN Respiratory: Lungs Clear, No Respiratory Distress Cardiovascular: Regular Rate, Rhythm, No Murmur Neurologic/Psychiatric: Alert, Oriented x3 Results/Procedures Lab Laboratory Tests 11/09/18 06:10 Patient resulted labs reviewed. Imaging: Reviewed Imaging Report Assessment/Plan Assessment and Plan Assess & Plan/Chief Complaint Right knee fracture Diagnosis/Problems Diagnosis/Problems (1) DVT (deep venous thrombosis) Status: Acute Assessment & Plan: Hold anticoagulation due to anemia and concern for GI bleed Plan for IVC filter today Qualifiers: DVT location: lower extremity Affected thrombotic vein of extremity: femoral Chronicity: chronic Laterality: left Qualified Codes: I82.512 - Chronic embolism and thrombosis of left femoral vein (2) Normocytic anemia Assessment & Plan: Improved appropriately with transfusions Infed ordered Plan for scope today (3) UTI (urinary tract infection) Assessment & Plan: Continue Rocephin Pansensitive- will transition to orals tomorrow Qualifiers: Urinary tract infection type: acute cystitis Hematuria presence: with hematuria Qualified Codes: N30.01 - Acute cystitis with hematuria (4) Closed fracture of right proximal tibia Status: Acute Assessment & Plan: Pain controlled ortho consulted- nonoperative NWB x6 weeks Qualifiers: Encounter type: initial encounter Fracture morphology: unspecified fracture morphology Qualified Codes: S82.101A - Unspecified fracture of upper end of right tibia, initial encounter for closed fracture (5) Thrombocytopenia Assessment & Plan: Discussed smear with Dr Laureano No evidence of TTP Platelets stable today Clinical Quality Measures DVT/VTE Risk/Contraindication: Risk Factor Score Per Nursin RFS Level Per Nursing on Admit: 4+=Very High RIZWAN VIDAL MD Nov 08, 2018 08:42
[2018-11-08] MEDS ORDERED: MIDAZOLAM 2 MG/2 ML (VERSED) VIAL ONE (08:50)
[2018-11-08] MEDS ORDERED: KETAMINE HCL 100 MG/ML 5 ML VIAL ONE (08:50)
--- NOTE | 2018-11-08 08:53 | NUR ---
CM/SS followed up with [facility], hopeful that patient will be able to transfer there on 11/09/18.
--- NOTE | 2018-11-08 09:48 | Progress Note-Pre Operative ---
Pre-Operative Progress Note H&P Reviewed The H&P was reviewed, patient examined and no changes noted. Date Seen by Provider: Nov 08, 2018 Time Seen by Provider: 08:00 Date H&P Reviewed: Nov 08, 2018 Time H&P Reviewed: 08:00 Pre-Operative Diagnosis: recurrent DVT with GI bleed JAGJIT MORRISON MD Nov 08, 2018 09:48
--- NOTE | 2018-11-08 09:49 | Progress Note-Post Operative ---
Post-Operative Progess Note Surgeon (s)/Pie Filling Mixer (s) Surgeon JAGJIT MORRISON MD Pie Filling Mixer: none Pre-Operative Diagnosis recurrent DVT with GI bleed Post-Operative Diagnosis same Procedure & Operative Findings Date of Procedure 11/08/18 Procedure Performed/Findings venogram and placement IVC filter under flouroscopy. Anesthesia Type MAC Estimated Blood Loss Estimated blood loss (mL): minimal Specimens/Packing Specimens Removed none JAGJIT MORRISON MD Nov 08, 2018 09:49
[2018-11-08] MEDS ORDERED: morphine INJ 10 MG/ML 1ML (SYR OR VIAL) IVP ONE (10:15)
[2018-11-08] MEDS ORDERED: ONDANSETRON 4 MG/2 ML (SDV) Z0FRAN IVP PRN (10:15)
[2018-11-08] MEDS ORDERED: PHENYLEPHRINE 100 MCG/ML 10 ML (ANESTHESIA) SYR ONE (10:25)
[2018-11-08] MEDS ORDERED: IOHEXOL 300 MG/ML 30 ML (OMNIPAQUE 300) VIAL IV ONE (10:30)
--- NOTE | 2018-11-08 10:35 | NUR ---
PATIENT RETURNED TO ROOM VIA BED. REPORT RECEIVED FROM ENGINE BOSS ELIANA. PATIENT RESTING COMFORTABLY AT THIS TIME. FAMILY AT BEDSIDE. DENIES ANY NEEDS. WILL CONTINUE TO MONITOR.
[2018-11-08 10:45] VITALS: BP 128/61
--- NOTE | 2018-11-08 10:50 | Diagnostic Imaging Report ---
Indication: Filter placement. Findings: 2 fluoroscopic images were obtained for an IVC filter placement. Appears to be in an infrarenal location. IMPRESSION: Intraoperative fluoroscopy as described. Dictated by: Dictated on workstation # [id number]
[2018-11-08] MEDS: FLUoxetine HCL 20 MG (PROzac) CAP PO SCH (11:15)
[2018-11-08] MEDS: morphine ER 30 MG (MS CONTIN) TAB PO SCH ×2 (11:16→21:27)
[2018-11-08] MEDS: ARTIFICAL TEARS 0.4 ML UNIT DOSE (REFRESH PLUS) OS SCH (11:16)
[2018-11-08] MEDS: GABAPENTIN 300 MG (NEURONTIN) CAP PO SCH ×3 (11:16→21:26)
[2018-11-08] MEDS: LOTEMAX 0.5% OD SCH (11:16)
[2018-11-08] MEDS: FAMOTIDINE 20 MG (PEPCID) TABLET PO SCH (11:16)
[2018-11-08] MEDS: OPTH OD SCH (11:16)
--- NOTE | 2018-11-08 11:16 | Progress Note-Post Operative ---
Post-Operative Progess Note Surgeon (s)/Multiple Punch Press Operator (s) Surgeon ELISA FLEMING DO Multiple Punch Press Operator: none Pre-Operative Diagnosis gi bleed Post-Operative Diagnosis gastric ulcer, incomplete colonoscopy Procedure & Operative Findings Date of Procedure 11/08/18 Procedure Performed/Findings egd c biopsy body stomach and flex sig, incomplete colonoscopy Anesthesia Type per mda Estimated Blood Loss Estimated blood loss (mL): none Specimens/Packing Specimens Removed body stomach ELISA FLEMING DO Nov 08, 2018 11:16
[2018-11-08 11:23] VITALS: BP 124/59
--- NOTE | 2018-11-08 13:43 | OPERATIVE REPORT ---
DATE OF SERVICE: 11/08/2018 ATTENDING PRIMARY CARE PHYSICIAN: Titi Kelly MD ADMITTING PHYSICIAN: Phuong Viramontes MD PREOPERATIVE DIAGNOSIS: Recurrent deep vein thrombosis with contraindication to anticoagulation. POSTOPERATIVE DIAGNOSIS: Recurrent deep vein thrombosis with contraindication to anticoagulation. PROCEDURE PERFORMED: Venogram and placement of inferior vena cava filter under fluoroscopy. SURGEON: Jagjit Morrison MD ANESTHESIA: Monitored anesthesia care. ESTIMATED BLOOD LOSS: Minimal. FINDINGS: Inferior vena cava approximately 15 mm in diameter, takeoff of the renal veins appeared to be approximately at the T12 level. Filter was placed between L2 and 3. DISPOSITION: The patient tolerated the procedure well. INDICATIONS: The patient is an 83-year-old female who was admitted for shortness of breath as well as a presyncopal episode without loss of consciousness. On arrival to the Emergency Department, she was hypoxic with oxygen saturation of 73%, which did improve with high flow mask. She has had a history of deep vein thrombosis. She does have a recent left lower extremity deep vein thrombosis. A CT scan did not show any signs of pulmonary embolism; however, she did have exacerbation of COPD. Her initial hemoglobin was in the 11 range; however, after anticoagulation with Xarelto, this did drop significantly to the 5 range. Due to her recent DVT and contraindication to anticoagulation with active bleed, we will proceed with venogram and placement of an inferior vena cava filter. DESCRIPTION OF PROCEDURE: The patient was brought to the operating room and laid supine on the table. After adequate IV pain and sedative medications and monitored anesthesia care, the groin and perineum were prepped and draped in standard surgical fashion. A 1% lidocaine was used to anesthetize the overlying skin in the femoral region. The right femoral vein was then cannulated withdrawing the venous blood. The guidewire was then inserted using fluoroscopy. The cannulating needle removed and a small incision was made using an 11 blade. The dilator and sheath were then introduced under direct visualization under fluoroscopy and dilate her and guidewire was then removed. A venogram was then performed, which did show the takeoff of the renals at approximately T12-L1 level and placement of the catheter at approximately between the L2-L3 level. Under direct visualization, a TrapEase inferior vena cava filter was placed between L2 and L3 using fluoroscopy. The catheter was then removed while holding direct pressure with visualization of good hemostasis and the puncture site was covered with Dermabond. The patient tolerated the procedure well. The patient was then turned over for EGD and colonoscopy under the same MAC anesthesia. She may proceed with activity as tolerated as well as diet as tolerated. Job ID: [id number] DocumentID: [id number] Dictated Date: 11/08/2018 09:55:51 Fitter Helper Date: 11/08/2018 12:15:31 Dictated By: JAGJIT MORRISON MD
[2018-11-08] MEDS ORDERED: HYDR-3816 PO (14:18)
[2018-11-08] MEDS ORDERED: L.AC1CAP6 PO (14:18)
[2018-11-08] MEDS ORDERED: MORP-34 PO (14:18)
[2018-11-08] MEDS ORDERED: PANT40TA2 PO (14:18)
--- NOTE | 2018-11-08 14:21 | Discharge Inst-Skilled Nursing ---
Discharge Inst-Skilled NF Chief Complaint Pt is an 83yoCF known to me from recent admission for fall where DVT was diagnosed. She returned to the ER yesterday after another fall last night where she was unable to stand up due to bilateral knee pain. She states was getting up to go to the bathroom when he legs gave out underneath her and she fell on them. She denied any dizziness, syncope, or LOC. She states she has fallen 2 times in the past week. She has a history of bilateral knee replacements as well. Today she complains of pain in her knees but otherwise has no complaints. Consult/Follow Up/Orders Follow Up Appt.: [address] Kelly Skilled NF Admit to: Via [facility] Certification ([facility]) I certify that SNF services are required to be given on an inpatient basis because of the above named patient's need for shelter care on a continuing basis for the conditions(s) for which he/she was receiving inpatient hospital services prior to his/her transfer to the SNF. Intermediate Facility Order: Nursing Services, Food Beverage Manager-Evaluate & Treat, Physical Therapy-Evaluate & Treat Daily Activity as Tolerated: No (Toe touch right sided, as tolerated on left) New & Resume Previous Orders Rizwan Viramontes Nov 08, 2018 14:19 RIZWAN VIRAMONTES MD Nov 08, 2018 14:21
[2018-11-08] MEDS: HYDROcodone/APAP 7.5 MG/325 MG (LORTAB, LORCET PLUS) TABLET PO PRN ×2 (14:26→23:42)
--- NOTE | 2018-11-08 15:10 | Physical Therapy Daily Note ---
PT Daily Note-Current Subjective Pt was in supine in bed and refused PT due to procedure done today and not feeling well. Transfers Therapy Code Descriptions/Definitions Functional [place] Measure: 0=Not Assessed/NA 4=Minimal Assistance 1=Total Assistance 5=Supervision or Setup 2=Maximal Assistance 6=Modified [place] 3=Moderate Assistance 7=Complete [place] Therapy Quality Codes: 6 Independent with activity with or without an assistive device 5 Patient requires set up or clean up by helper. Patient completes activity by themselves 4 Supervision or touching assist (CGA). [place] provide cues , steadying assist 3 The helper provides less than half the effort to complete the activity 2 The helper provides more than half the effort to complete the activity 1 Dependent. The helper does all the effort to complete an activity 7 Patient refused to complete or attempt activity 9 The patient did not perform the activity before the current illness or injury 88 Not attempted due to Medical conditions or safety concerns Weight Bearing Right Lower Extremity: Right Touch Toe Bearing Left Lower Extremity: Left Weight Bearing/Tolerated PT Short Term Goals Short Term Goals Time Frame: Nov 13, 2018 Transfers (B,C,W/C) (FIM): 3 Gait (FIM): 1 Distance (FIM): 1=up to 49 ft Gait Distance Comment: 20' Gait Level of Assist: 3 Gait Assistive Device: FWW PT Plan Treatment/Plan Treatment Plan: Continue Plan of Care Treatment Plan: Bed Mobility, Education, Functional Activity Liliana, Functional Strength, Gait, Safety, Therapeutic Exercise, Transfers Treatment Duration: Nov 13, 2018 Frequency: 6 times per week Estimated Hrs Per Day: .25 hour per day Patient and/or Family Agrees t: Yes Time/GCodes Time In: 301 Time Out: 301 Total Billed Treatment Time: 0 Total Billed Treatment 1 visit Pt refused DECLAN MCCORMICK PT Nov 08, 2018 15:10
[2018-11-08 16:09] VITALS: BP 144/64
--- NOTE | 2018-11-08 18:11 | OPERATIVE REPORT ---
DATE OF SERVICE: 11/08/2018 PREOPERATIVE DIAGNOSIS: Gastrointestinal bleed. POSTOPERATIVE DIAGNOSES: Gastric ulcer, incomplete colonoscopy. PROCEDURE: EGD with biopsy of body of stomach and flexible sigmoidoscopy and incomplete colonoscopy. SURGEON: Elisa Mcdonald DO ANESTHESIA: Per MDA. ESTIMATED BLOOD LOSS: None. COMPLICATIONS: None. SPECIMENS: Body of stomach. INDICATIONS: The patient is an 83-year-old female with anemia. She was explained the risks and benefits of procedure and wished to proceed with procedure. Consent was signed and on the chart. DESCRIPTION OF PROCEDURE: The patient was taken to the operating suite. She was placed in a supine position. Timeout was performed. Scope was inserted in the mouth, down the esophagus, stomach and into the duodenum without difficulty. There were no polyps, masses or ulcerations of the duodenum. Scope was slowly retracted back into the stomach where it was further insufflated. No polyps, masses or ulcerations within the distal portion of the stomach. Scope was retroflexed noting a small hiatal hernia. There was a small ulceration of the body of the stomach. No active bleeding at this time, but surrounding inflammation as well. Biopsy of this area was obtained. No other pathology was noted. Scope was returned to its normal position, slowly withdrawn to the distal esophagus, which had normal appearance. No polyps, masses or ulcerations. The scope was slowly retracted back until completely removed. The patient was placed in the left lateral recumbent position. A digital rectal exam was performed. There were no palpable polyps, masses or ulcerations. Some hemorrhoidal disease. Scope was inserted into the rectum. A lot of stool was still present within this. The scope was used to irrigate and suction. The scope was continued to be advanced into the sigmoid colon where a larger stool burden was present and it was decided at that time to discontinue the attempted colonoscopy. The scope was then slowly retracted back. There was no pathology noted from the sigmoid down into the rectum, but still with poor visualization. Scope was slowly retracted back until completely removed, noting no other pathology. RECOMMENDATIONS: The patient is continued on Protonix. Await biopsy results. We will have her on clear liquid diet for now. She will continue on the Protonix 40 mg b.i.d. and continue to follow hemoglobin. Job ID: [id number] DocumentID: [id number] Dictated Date: 11/08/2018 11:19:41 Lock Master Date: 11/08/2018 18:10:28 Dictated By: ELISA MCDONALD DO
[2018-11-08 19:17] VITALS: BP 123/63
[2018-11-08] MEDS: TOLTERODINE LA 4 MG (DETROL) CAP PO SCH (21:26)
[2018-11-08] MEDS: MONTELUKAST 10 MG (SINGULAIR) TAB PO SCH (21:27)
[2018-11-09] VITALS (9 sets, daily range): BP systolic 104–124; BP diastolic 53–69
[2018-11-09] MEDS: NS IV 1000 ML 1,000 ML IV SCH (03:09)
[2018-11-09] MEDS: SUCRALFATE 1 GM (CARAFATE) TAB PO SCH (06:04)
[2018-11-09] MEDS: HYDROcodone/APAP 7.5 MG/325 MG (LORTAB, LORCET PLUS) TABLET PO PRN (06:16)
[2018-11-09 06:24] LABS: MEAN PLATELET VOLUME 11.8 FL (7.4-10.4); RED CELL DISTRIBUTION WIDTH 17.2 % (10.0-14.5)
[2018-11-09 06:27] LABS: HEMOGLOBIN 6.9 G/DL (11.5-16.0)
[2018-11-09 06:42] LABS: BUN/CREATININE RATIO 31; CALCIUM 7.2 MG/DL (8.5-10.1); CARBON DIOXIDE 22 MMOL/L (21-32); CHLORIDE 111 MMOL/L (98-107); CREATININE SERUM 0.84 MG/DL (0.60-1.30); GFR ESTIMATED > 60; GLUCOSE 68 MG/DL (70-105); POTASSIUM 2.8 MMOL/L (3.6-5.0); SODIUM 143 MMOL/L (135-145)
--- NOTE | 2018-11-09 07:09 | Anesthesia-General Post-Op ---
MAC Patient Condition Mental Status/LOC: Same as Preop Cardiovascular: Satisfactory Nausea/Vomiting: Absent Respiratory: Satisfactory Pain: Controlled Complications: Absent Post Op Complications Complications None Follow Up Care/Instructions Patient Instructions None needed. Anesthesiology Discharge Order Discharge Order Patient is doing well, no complaints, stable vital signs, no apparent adverse anesthesia problems. No complications reported per nursing. LICO DOE CRNA Nov 09, 2018 07:09
--- NOTE | 2018-11-09 07:30 | Pulmonary Progress Note ---
JACQUIEJANE STUDENT 11/09/18 0730: Subjective Date Seen by a Provider: Nov 09, 2018 Time Seen by a Provider: 07:26 Subjective/Events-last exam Patient had an IVC filter placed yesterday by Dr. Castaneda and an EGD by Dr. Mcdonald. The EGD revealed a small, non-bleeding ulcer in the stomach. A colonoscopy was unsuccessful due to poor bowel prep. She states she is going to [facility] today. Review of Systems General: No Chills, No Night Sweats; Fatigue; No Appetite HEENT: No Head Aches, No Sore Throat Pulmonary: No Dyspnea, No Cough, No Pleuritic Chest Pain Cardiovascular: No: Chest Pain, Palpitations, Orthopnea Gastrointestinal: Constipation; No: Nausea, Vomiting, Abdominal Pain Genitourinary: No Dysuria, No Frequency Musculoskeletal: leg pain Neurological: Weakness, Incoordination Sepsis Event Evaluation Height, Weight, BMI Height: 5'0.00" Weight: 147lbs. 0.0oz. 66.735104hz; 24.6 BMI Method:Stated Exam Exam Vital Signs Date Time Temp Pulse Resp B/P (MAP) Pulse Ox O2 Delivery O2 Flow Rate FiO2 11/09/18 07:22 Nasal Cannula 3.00 11/09/18 05:43 98.3 74 18 104/58 (73) 94 Nasal Cannula 3.00 11/09/18 04:00 98.3 74 18 104/58 (73) 94 Nasal Cannula 3.00 11/09/18 00:16 97.3 78 18 109/61 (77) 96 Nasal Cannula 3.00 11/08/18 23:21 Nasal Cannula 3.00 11/08/18 21:00 Nasal Cannula 3.00 11/08/18 19:17 98.9 73 18 123/63 (83) 97 Nasal Cannula 3.00 11/08/18 16:09 98.7 78 20 144/64 (90) 98 Nasal Cannula 4.00 11/08/18 11:23 98.4 67 18 124/59 (80) 99 Nasal Cannula 3.00 11/08/18 10:45 97.9 82 18 128/61 (83) 98 Nasal Cannula 3.00 11/08/18 09:00 Nasal Cannula 4.00 11/08/18 08:14 98.9 78 18 119/64 (82) 100 Nasal Cannula 4.00 I & O 11/09/18 07:00 Intake Total 2671.25 ml Output Total 938 ml Balance 1733.25 ml Height & Weight Height: 5'0.00" Weight: 147lbs. 0.0oz. 66.138365sl; 24.6 BMI Method:Stated General Appearance: WD/WN, Anxious, Chronically ill HEENT: PERRL/EOMI, Pharynx Normal; No Moist Mucous Membranes Neck: Non Tender, Supple Respiratory: Lungs Clear, No Respiratory Distress Cardiovascular: Regular Rate, Rhythm, No Murmur Capillary Refill: Less Than 3 Seconds Peripheral Pulses: 1+ Dorsalis Pedis (R), 1+ Left Dors-Pedis (L) Gastrointestinal: normal bowel sounds, soft Extremity: Normal Capillary Refill, No Calf Tenderness Neurologic/Psychiatric: Alert, Oriented x3 Skin: Normal Color, Warm/Dry Lymphatic: No Adenopathy Results Lab Laboratory Tests 11/07/18 17:10 11/08/18 06:47 11/09/18 06:10 Assessment/Plan Assessment/Plan Acute on chronic respiratory failure -Oxygen -- Titrate oxygen to sats >90% -Will probably need home 02 assessment COPD- currently Stable -On nocturnal oxygen at home -Titrate oxygen to sats >90% -SVNs Hypotension with anemia s/p 2 transfusions -Monitor close -H/H worsened today: 6.9 -Dr. Mcdonald did EGD and found small ulceration in body of stomach and surrounding inflammation without active bleeding - NS at 125/hr S/p fall with bilateral tibia fracture and left fibula fracture -Ortho recommended no surgery at this time -Pain control UTI with sepsis - not severe sepsis -Continue Rocephin -Cultures show barros-sensitive E.coli Recent LLE DVT - pt has fallen multiple times -Hold anticoag due to anemia -Dr. Castaneda placed IVC filter yesterday Hypokalemia SWAPNA WALKER DO 11/09/18 0908: Subjective Time Seen by a Provider: 09:02 Subjective/Events-last exam S/P IVC filter placement. EGD showed small nonbleeding gastric ulcer. respiratory green pt is requiring 3 liters oxygen Exam Exam General Appearance: WD/WN, Anxious, Chronically ill HEENT: PERRL/EOMI, Pharynx Normal; No Moist Mucous Membranes Neck: Non Tender, Supple Respiratory: Lungs Clear, No Respiratory Distress Cardiovascular: Regular Rate, Rhythm, No Murmur Capillary Refill: Less Than 3 Seconds Peripheral Pulses: 1+ Dorsalis Pedis (R), 1+ Left Dors-Pedis (L) Gastrointestinal: normal bowel sounds, soft Extremity: Normal Capillary Refill, No Calf Tenderness Neurologic/Psychiatric: Alert, Oriented x3 Skin: Normal Color, Warm/Dry Lymphatic: No Adenopathy Assessment/Plan Assessment/Plan Acute on chronic respiratory failure -Oxygen -- Titrate oxygen to sats >90% -Will probably need home 02 assessment COPD- currently Stable -On nocturnal oxygen at home -Titrate oxygen to sats >90% -SVNs anemia s/p 2 transfusions -Monitor close -H/H worsened today: 6.9 -transfusion per Dr. Viramontes's orders -Dr. Mcdonald did EGD and found small ulceration in body of stomach and surrounding inflammation without active bleeding - NS at 125/hr Pancytopenia -Monitor S/p fall with bilateral tibia fracture and left fibula fracture -Ortho recommended no surgery at this time -Pain control UTI with sepsis - not severe sepsis -Continue Rocephin -Cultures show barros-sensitive E.coli Recent LLE DVT - pt has fallen multiple times -Hold anticoag due to anemia -Dr. Castaneda placed IVC filter yesterday Hypokalemia BHUPINDER-JANE AMBRIZ STUDENT Nov 09, 2018 07:30 SWAPNA WALKER DO Nov 09, 2018 09:08
[2018-11-09] MEDS ORDERED: KCL 20 MEQ TAB (K-DUR) PO NR (08:00)
--- NOTE | 2018-11-09 08:04 | Diagnostic Imaging Report ---
INDICATION: Shortness of air. TECHNIQUE: Single view chest 04:03 a.m. CORRELATION STUDY: 11/08/2018. FINDINGS: Heart size, mediastinum stable. Vascular slightly increased from prior study. Component of interstitial edema is also present. No definitive infiltrate. IMPRESSION: 1. Cardiac enlargement with vasculature appearing increased from prior study along with development of mild interstitial edema. Dictated by: Dictated on workstation # [id number]
--- NOTE | 2018-11-09 08:21 | Discharge Summary-Hospitalist ---
Diagnosis/Chief Complaint Date of Admission Nov 04, 2018 at 23:10 Date of Discharge Admission Diagnosis Bilateral tib/fib fractures Discharge Diagnosis (1) DVT (deep venous thrombosis) Status: Acute Assessment & Plan: Anticoagulation contraindicated due to anemia and GI bleed IVC filter placed Discussed multiple times with patient about short term duration of IVC filters and she expressed understanding that it will need to be removed within 6 months I also called and discussed with her PCP Dr Kelly (2) Normocytic anemia Assessment & Plan: Infed given to restore iron deficit completely EGD revealed gastric ulcer- continue on PPI s/p 3 units pRBCs (3) UTI (urinary tract infection) Assessment & Plan: Completed Rocephin (4) Closed fracture of right proximal tibia Status: Acute Assessment & Plan: Pain controlled ortho consulted- nonoperative NWB x6 weeks (5) Thrombocytopenia Assessment & Plan: Discussed smear with Dr Laureano No evidence of TTP Platelets stable today (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 (7) GI bleed Discharge Summary Procedures/Consulations Pulm- Dr Ramirez Surgery- Dr Mcdonald and Dr Castaneda Discharge Physical Exam Allergies: Coded Allergies: adhesive tape (Verified Allergy, Mild, RASH, 10/12/18) aspirin (Verified Allergy, Unknown, 10/12/18) meperidine (Verified Allergy, Unknown, 10/12/18) nitrofurantoin (Verified Allergy, Unknown, 10/12/18) Uncoded Allergies: SURGICAL TAPE (Allergy, Unknown, 05/14/07) Vitals & I&Os Vital Signs Date Time Temp Pulse Resp B/P (MAP) Pulse Ox O2 Delivery O2 Flow Rate FiO2 11/09/18 07:48 98.7 80 16 109/57 (74) 95 Nasal Cannula 3.00 General Appearance: No Apparent Distress, Chronically ill Respiratory: Lungs Clear, No Respiratory Distress Cardiovascular: Regular Rate, Rhythm, No Murmur Neurologic/Psychiatric: Alert, Oriented x3 Hospital Course Pt was admitted after a fall where she was found to have right tibia fracture. This was deemed to be non operative by orthopedic surgery. She developed severe anemia (5.3) though and her anticoagulation was held. Surgery was consulted and EGD was done that showed gastric ulcer and biopsies where taken and are currently pending. Colonoscopy was unable to be done due to incomplete prep. She ultimately received 3 units of pRBCs and 1g of Infed for her anemia. Due to the anemia and GI bleed anticoagulation was discontinued. IVC filter placement was discussed with her including the risks and duration. She was agreeable to placement of this given her high risk for further VTE due to immobility from fracture and history of VTE x2. I did call and discuss this with Dr Kelly her PCP. Dr Castaneda was consulted for placement of IVC filter on 11/08/18. Labs (last 24 hrs) Laboratory Tests 11/09/18 06:10: White Blood Count 4.0L, Red Blood Count 2.28L, Hemoglobin 6.9*L, Hematocrit 21L , Mean Corpuscular Volume 92, Mean Corpuscular Hemoglobin 30, Mean Corpuscular Hemoglobin Concent 33, Red Cell Distribution Width 17.2H, Platelet Count 59L, Mean Platelet Volume 11.8H, Sodium Level 143, Potassium Level 2.8L, Chloride Level 111H, Carbon Dioxide Level 22, Anion Gap 10, Blood Urea Nitrogen 26H, Creatinine 0.84, Estimat Glomerular Filtration Rate > 60, BUN/Creatinine Ratio 31, Glucose Level 68L, Calcium Level 7.2L Microbiology 11/04/18 Blood Culture - Preliminary, Resulted No growth 11/07/18 MRSA Screen - Final, Complete MRSA not isolated 11/04/18 Urine Culture - Final, Complete Escherichia coli Escherichia coli#2 Patient resulted labs reviewed. Pending Labs Laboratory Tests 11/09/18 06:10: White Blood Count 4.0, Red Blood Count 2.28, Hemoglobin 6.9, Hematocrit 21, Mean Corpuscular Volume 92, Mean Corpuscular Hemoglobin 30, Mean Corpuscular Hemoglobin Concent 33, Red Cell Distribution Width 17.2, Platelet Count 59, Mean Platelet Volume 11.8, Sodium Level 143, Potassium Level 2.8, Chloride Level 111, Carbon Dioxide Level 22, Anion Gap 10, Blood Urea Nitrogen 26, Creatinine 0.84, Estimat Glomerular Filtration Rate > 60, BUN/Creatinine Ratio 31, Glucose Level 68, Calcium Level 7.2 Imaging: Reviewed Imaging Report Discussion & Recommendations Discharge Planning: >30 minutes discharge planning Discharge Home Medications: Active Scripts Active Protonix (Pantoprazole Sodium) 40 Mg Tablet.dr 40 Mg PO DAILY Probiotic (L.acidoph & Paracasei,B.lactis) 1 Each Capsule 1 Each PO AC Hydrocodone-Acetamin 7.5-325 (Hydrocodone/Acetaminophen) 1 Each Tablet 1 Tab PO Q6H PRN Morphine Sulfate ER (Morphine Sulfate) 30 Mg Tablet.er 30 Mg PO BID Reported Xarelto (Rivaroxaban) 20 Mg Tablet 20 Mg PO 1700 Calcium 600 + Vit D 400 Softgl (Calcium Carbonate/Vitamin D3) 1 Each Capsule 1 Cap PO BID Biotene Moisturizing Mouth (Saliva Stimulant Agents Comb.3) 1 Each Spring 1 Spring MM BID PRN Artificial Tears Drops (Polyvinyl Alcohol/Povidone) 15 Ml Drops 1 Drop OS DAILY Gabapentin 300 Mg Capsule 300 Mg PO TID Sucralfate 1 Gm Tablet 1 Gm PO BID Proctosol-Hc (Hydrocortisone) 28.35 Gm Cream.appl TOP QID PRN Miralax (Polyethylene Glycol 3350) 17 Gm Powd.pack 17 Gm PO DAILY PRN Ondansetron Odt (Ondansetron) 8 Mg Tab.rapdis 8 Mg PO Q8H PRN Fluoxetine HCl 20 Mg Capsule 20 Mg PO DAILY Lotemax (Loteprednol Etabonate) 5 Gm Drops.gel 1 Drop OD DAILY Voltaren (Diclofenac Sodium) 100 Gm Gel..gram. TP BID PRN Toviaz (Fesoterodine Fumarate) 8 Mg Tab.er.24h 8 Mg PO HS Montelukast Sodium 10 Mg Tablet 10 Mg PO DAILY Famotidine 20 Mg Tablet 20 Mg PO BID Instructions to patient/family Please see electronic discharge instructions given to patient. Clinical Quality Measures DVT/VTE Risk/Contraindication: Risk Factor Score Per Nursin RFS Level Per Nursing on Admit: 4+=Very High Problem Qualifiers (1) DVT (deep venous thrombosis): DVT location: lower extremity Affected thrombotic vein of extremity: femoral Chronicity: chronic Laterality: left Qualified Codes: I82.512 - Chronic embolism and thrombosis of left femoral vein (2) UTI (urinary tract infection): Urinary tract infection type: acute cystitis Hematuria presence: with hematuria Qualified Codes: N30.01 - Acute cystitis with hematuria (3) Closed fracture of right proximal tibia: Encounter type: initial encounter Fracture morphology: unspecified fracture morphology Qualified Codes: S82.101A - Unspecified fracture of upper end of right tibia, initial encounter for closed fracture (4) GI bleed: GI bleed type/associated pathology: gastric ulcer Qualified Codes: K25.4 - Chronic or unspecified gastric ulcer with hemorrhage RIZWAN VIDAL MD Nov 09, 2018 08:21
[2018-11-09] MEDS: GABAPENTIN 300 MG (NEURONTIN) CAP PO SCH (09:23)
[2018-11-09] MEDS: FAMOTIDINE 20 MG (PEPCID) TABLET PO SCH (09:23)
[2018-11-09] MEDS: morphine ER 30 MG (MS CONTIN) TAB PO SCH (09:24)
[2018-11-09] MEDS: OPTH OD SCH (09:24)
[2018-11-09] MEDS: FLUoxetine HCL 20 MG (PROzac) CAP PO SCH (09:24)
[2018-11-09] MEDS: PANTOPRAZOLE 40 MG (PROTONIX) VIAL IV SCH (09:24)
[2018-11-09] MEDS: LOTEMAX 0.5% OD SCH (09:24)
[2018-11-09] MEDS: ARTIFICAL TEARS 0.4 ML UNIT DOSE (REFRESH PLUS) OS SCH (09:25)
--- NOTE | 2018-11-09 09:58 | NUR ---
CM/SS [facility] will accept this day and transfer at 1pm. CARE assessment completed with the patient, sent to facility, [facility] and file retained in chart. Discharge information sent to [facility]. Patient and her daughter were updated on discharge plans.
--- NOTE | 2018-11-09 11:56 | Progress Note ---
Subjective Date Seen by a Provider: Nov 09, 2018 Time Seen by a Provider: 11:47 Subjective/Events-last exam Patient no new issues. Getting 1 prbc now. No abdominal pain. On protonix and had IVC placed. Denies n/v fever sweats chills shortness of breath or chest pain. Objective Exam Vital Signs Date Time Temp Pulse Resp B/P (MAP) Pulse Ox O2 Delivery O2 Flow Rate FiO2 11/09/18 09:37 98.9 82 20 116/59 96 Nasal Cannula 3.00 11/09/18 09:17 99.8 78 18 106/53 96 Nasal Cannula 3.00 11/09/18 07:48 98.7 80 16 109/57 (74) 95 Nasal Cannula 3.00 11/09/18 07:22 Nasal Cannula 3.00 11/09/18 05:43 98.3 74 18 104/58 (73) 94 Nasal Cannula 3.00 11/09/18 04:00 98.3 74 18 104/58 (73) 94 Nasal Cannula 3.00 11/09/18 00:16 97.3 78 18 109/61 (77) 96 Nasal Cannula 3.00 11/08/18 23:21 Nasal Cannula 3.00 11/08/18 21:00 Nasal Cannula 3.00 11/08/18 19:17 98.9 73 18 123/63 (83) 97 Nasal Cannula 3.00 11/08/18 16:09 98.7 78 20 144/64 (90) 98 Nasal Cannula 4.00 I & O 11/09/18 07:00 Intake Total 2671.25 ml Output Total 938 ml Balance 1733.25 ml Capillary Refill : Less Than 3 SecondsLess Than 3 Seconds General Appearance: No Apparent Distress, WD/WN, Chronically ill HEENT: PERRL/EOMI, Pharynx Normal; No Moist Mucous Membranes Neck: Non Tender, Supple Respiratory: Lungs Clear, No Respiratory Distress Cardiovascular: Regular Rate, Rhythm, No Murmur Gastrointestinal: normal bowel sounds, soft Extremity: Normal Capillary Refill, No Calf Tenderness Neurologic/Psychiatric: Alert, Oriented x3 Skin: Normal Color, Warm/Dry Lymphatic: No Adenopathy Results Lab Laboratory Tests 11/09/18 06:10: White Blood Count 4.0L, Red Blood Count 2.28L, Hemoglobin 6.9*L, Hematocrit 21L , Mean Corpuscular Volume 92, Mean Corpuscular Hemoglobin 30, Mean Corpuscular Hemoglobin Concent 33, Red Cell Distribution Width 17.2H, Platelet Count 59L, Mean Platelet Volume 11.8H, Sodium Level 143, Potassium Level 2.8L, Chloride Level 111H, Carbon Dioxide Level 22, Anion Gap 10, Blood Urea Nitrogen 26H, Creatinine 0.84, Estimat Glomerular Filtration Rate > 60, BUN/Creatinine Ratio 31, Glucose Level 68L, Calcium Level 7.2L, B-Type Natriuretic Peptide 389.9H Microbiology 11/04/18 Blood Culture - Preliminary, Resulted No growth 11/07/18 MRSA Screen - Final, Complete MRSA not isolated 11/04/18 Urine Culture - Final, Complete Escherichia coli Escherichia coli#2 Assessment/Plan Assessment/Plan Assessment/Plan Anemia Likely from GI tract ulceration and biopsied Bilateral lower extremity fractures Deep venous thrombosis on Xarelto currently on hold Discussed with patient need for EGD and colonoscopy for evaluation of bleeding source. Patient prepped and understands risks and benefits. Patient with IVC filter placement yesterday by Dr. Castaneda. transfuse when necessary. Protonix 40 mg twice a day f/u Tamara 2 week Clinical Quality Measures DVT/VTE Risk/Contraindication: Risk Factor Score Per Nursin RFS Level Per Nursing on Admit: 4+=Very High ELISA FLEMING DO Nov 09, 2018 11:56
--- NOTE | 2018-11-09 13:45 | NUR ---
DISCHARGE PAPERS GIVEN TO PATIENT WITH ADULT DAUGHTER PRESENT. ALLOWED TIME FOR QUESTIONS. IV AND MIDLINE REMOVED WITH CATHETER INTACT. MCDERMOTT CATHETER REMOVED. PATIENT TRANSPORTED TO WHEELCHAIR. LEFT FACILITY ACCOMPANIED BY STAFF, ADULT DAUGHTER, AND VIA [facility] [place] STAFF.
== END 2018-11-09 13:45 | DRG 515 ==
LOC: EDUNIT# 21:01 → ER 21:02 → ICU 23:10 → 4TH 11-06 14:02
PROVIDERS: ADMIT Internal Medicine
PROC: 06H03DZ Insertion of Intraluminal Device into Inferior Vena Cava, Percutaneous Approach (ICD-10-PCS; principal; 2018-11-08 08:51)
PROC: 0DB64ZX Excision of Stomach, Percutaneous Endoscopic Approach, Diagnostic (ICD-10-PCS; 2018-11-08 08:51)
PROC: 0DJD8ZZ Inspection of Lower Intestinal Tract, Via Natural or Artificial Opening Endoscopic (ICD-10-PCS; 2018-11-08 08:51)
DX: M80.061A Age-related osteoporosis with current pathological fracture, right lower leg, initial encounter for fracture (principal); M97.11XA Periprosthetic fracture around internal prosthetic right knee joint, initial encounter; J96.20 Acute and chronic respiratory failure, unspecified whether with hypoxia or hypercapnia; G92 Toxic encephalopathy; N30.01 Acute cystitis with hematuria; I82.512 Chronic embolism and thrombosis of left femoral vein; K25.4 Chronic or unspecified gastric ulcer with hemorrhage; N17.9 Acute kidney failure, unspecified; R09.02 Hypoxemia; D64.9 Anemia, unspecified; E83.42 Hypomagnesemia; D69.59 Other secondary thrombocytopenia; T40.4X5A Adverse effect of other synthetic narcotics, initial encounter; J43.9 Emphysema, unspecified; I10 Essential (primary) hypertension; K21.9 Gastro-esophageal reflux disease without esophagitis; K44.9 Diaphragmatic hernia without obstruction or gangrene; E87.6 Hypokalemia; M19.91 Primary osteoarthritis, unspecified site; G47.9 Sleep disorder, unspecified; F41.9 Anxiety disorder, unspecified; F32.9 Major depressive disorder, single episode, unspecified; G89.29 Other chronic pain; W19.XXXA Unspecified fall, initial encounter; Y92.009 Unspecified place in unspecified non-institutional (private) residence as the place of occurrence of the external cause; Z99.81 Dependence on supplemental oxygen; Z79.01 Long term (current) use of anticoagulants; Z96.653 Presence of artificial knee joint, bilateral; Z96.642 Presence of left artificial hip joint
CPT/HCPCS: 36415; 51702; 70450; 71045; 72100; 73523; 73552; 73562; 73590; 73700; 80048; 80053; 81000; 82274; 82550; 82553; 82805; 83605; 83690; 83735; 83874; 83880; 84443; 84484; 85007; 85018; 85025; 85027; 85045; 85610; 85730; 86022; 86850; 86900; 86901; 86920; 87040; 87077; 87081; 87088; 87186; 87804; 93005; 93041; 94664; 94760; 96365

== ENCOUNTER 2018-11-20 15:26 | Observation (INO) | payer MEDICARE, OTHER ==
[~2018-11-20] VITALS: Ht 152.4 cm; Wt 71.8 kg
[~2018-11-20 15:26] MED LIST changes: +CALC1CAP21 PO; +L.AC1CAP6 PO; +PANT40TA2 PO; -SALI45SP MM; +SALI45SP SL
--- OUTSIDE RECORDS SUMMARY | 2018-11-20 15:33 | XMS REPORT | Clinical Summary ---
Author Author [facility] Organization [facility] Address Unknown Phone Unavailable Care Team Providers Care Appliance Assembler Name Role Phone PCP Unavailable Allergies Active [...]
[2018-11-20 16:25] LABS: BASOPHILS % (AUTO) 0 % (0-10); EOSINOPHILS # (AUTO) 0.3 10^3/uL (0.0-0.3); EOSINOPHILS % (AUTO) 5 % (0-10); HEMATOCRIT 37 % (35-52); LYMPHOCYTES # (AUTO) 1.2 X 10^3 (1.0-4.0); LYMPHOCYTES % (AUTO) 23 % (12-44); MEAN CORPUSCULAR HEMOGLOBIN 30 PG (25-34); MEAN CORPUSCULAR HGB CONC 30 G/DL (32-36); MEAN CORPUSCULAR VOLUME 101 FL (80-99); MEAN PLATELET VOLUME 12.3 FL (7.4-10.4); MONOCYTES # (AUTO) 0.3 X 10^3 (0.0-1.0); MONOCYTES % (AUTO) 6 % (0-12); NEUTROPHILS # (AUTO) 3.3 X 10^3 (1.8-7.8); NEUTROPHILS % (AUTO) 65 % (42-75); PLATELET COUNT 139 10^3/uL (130-400); RED CELL DISTRIBUTION WIDTH 17.1 % (10.0-14.5)
--- NOTE | 2018-11-20 16:29 | ED General ---
General Chief Complaint: Cardiac/General Problems Stated Complaint: IRREGULAR HEART RATE Nursing Triage Note: sent from Dr Rahman's office for irregular heart rate. patient denies chest pain. pat. report gradual increase in weakness and fatigue. increase in patient weight of 20lbs per daughter pat. had increased confusion yesterday. Nursing Sepsis Screen: No Definite Risk Source of Information: Patient, Family Exam Limitations: No Limitations (JNAE DHILLON STUDENT) History of Present Illness Date Seen by Provider: Nov 20, 2018 Time Seen by Provider: 16:12 Initial Comments 83 y/o F presented from Dr. Rahman's office for EKG changes/a. fib noted at his office today, which were new to her. She denies chest pain or increased shortness of breath at this time. She was recently hospitalized at (10/12/18-10/15/18) for bilateral tib/fib fractures post fall and has been in a halfway since then. Since discharge, she has had increasing weakness and fatigue. She has also had increasing confusion and shakiness since discharge. She is hardly able to feed herself due to her shaky arms. Over the past few days, she has had jerking of her arms, legs and head, which is new to her. Her daughter also notes that she has had slurring of her words intermittently for the past couple of days and weight gain of about 20 lbs. Timing/Duration: 1-2 Days, Getting Worse Severity: Mild, Moderate Associated Systoms: No Chest Pain, No Cough, No Fever/Chills; Malaise; No Nausea/Vomiting, No Rash, No Shortness of Air, No Syncope; Weakness (JANE MARS STUDENT) Timing/Duration: 1-2 Days, Getting Worse Severity: Moderate Associated Systoms: Weakness (ZULEYKA MARQUEZ MD) Allergies and Home Medications Allergies Coded Allergies: adhesive tape (Verified Allergy, Mild, RASH, 10/12/18) aspirin (Verified Allergy, Unknown, 10/12/18) meperidine (Verified Allergy, Unknown, 10/12/18) nitrofurantoin (Verified Allergy, Unknown, 10/12/18) Uncoded Allergies: SURGICAL TAPE (Allergy, Unknown, 05/14/07) Home Medications Calcium Carbonate/Vitamin D3 1 Each Capsule, 1 CAP PO BID, (Reported) Diclofenac Sodium 100 Gm Gel..gram., TP BID PRN for JOINT PAIN, (Reported) Famotidine 20 Mg Tablet, 20 MG PO BID, (Reported) Fesoterodine Fumarate 8 Mg Tab.er.24h, 8 MG PO HS, (Reported) Fluoxetine HCl 20 Mg Capsule, 20 MG PO DAILY, (Reported) Gabapentin 300 Mg Capsule, 300 MG PO TID, (Reported) Hydrocodone/Acetaminophen 1 Each Tablet, 1 TAB PO Q6H PRN for PAIN-MODERATE Prescribed by: RIZWAN VIRAMONTES on 11/08/181417 Hydrocortisone 28.35 Gm Cream.appl, TOP QID PRN for HEMORRHOIDS, (Reported) L.acidoph & Paracasei,B.lactis 1 Each Capsule, 1 EACH PO AC Prescribed by: RIZWAN VIRAMONTES on 11/08/181417 Loteprednol Etabonate 5 Gm Drops.gel, 1 DROP OD DAILY, (Reported) Montelukast Sodium 10 Mg Tablet, 10 MG PO DAILY, (Reported) Morphine Sulfate 30 Mg Tablet.er, 30 MG PO BID Prescribed by: RIZWAN VIRAMONTES on 11/08/181417 Ondansetron 8 Mg Tab.rapdis, 8 MG PO Q8H PRN for NAUSEA/VOMITING-1ST LINE, ( Reported) Pantoprazole Sodium 40 Mg Tablet.dr, 40 MG PO DAILY Prescribed by: RIZWAN VIRAMONTES on 11/08/181417 Polyethylene Glycol 3350 17 Gm Powd.pack, 17 GM PO DAILY PRN for CONSTIPATION- 2ND LINE, (Reported) Polyvinyl Alcohol/Povidone 15 Ml Drops, 1 DROP OS DAILY, (Reported) Saliva Stimulant Agents Comb.3 1 Each Willis, 1 SPRAY MM BID PRN for DRY MOUTH, ( Reported) Sucralfate 1 Gm Tablet, 1 GM PO BID, (Reported) Patient Home Medication List Home Medication List Reviewed: Yes (JANE DHILLON) Home Medication List Reviewed: Yes (ZULEYKA MARQUEZ MD) Review of Systems Review of Systems Constitutional: No chills, No dizziness, No fever; malaise, weakness, weight gain (20 lbs over past 1-2 weeks) EENTM: No blurred vision, No double vision, No nose congestion, No throat pain Respiratory: No cough, No short of breath, No wheezing Cardiovascular: No chest pain; edema; No palpitations, No syncope Gastrointestinal: No abdominal pain, No constipation, No diarrhea, No nausea, No vomiting Genitourinary: No dysuria, No frequency Musculoskeletal: No back pain, No muscle pain, No muscle stiffness; muscle twitching (bilateral upper and lower limbs and neck); No neck pain; other (leg pain due to recent fractures) Skin: No lesions, No pruritus, No rash Psychiatric/Neurological: Denies Headache, Denies Numbness, Denies Tingling; Tremors, Weakness Hematologic/Lymphatic: Anemia (received transfusion during last hospitalization ) (JANE DHILLON STUDENT) Constitutional: malaise, weakness Respiratory: No cough, No short of breath Genitourinary: no symptoms reported Musculoskeletal: see HPI, muscle twitching (bilateral upper and lower limbs and neck) (ZULEYKA MARQUEZ MD) All Other Systems Reviewed Negative Unless Noted: Yes (ZULEYKA MARQUEZ MD) Past Vrtkpbw-Gvhpvh-Blejsg Hx Past Med/Social Hx: Reviewed Nursing Past Med/Soc Hx (ZULEYKA MARQUEZ MD) Patient Social History Alcohol Use: Denies Use Recreational Drug Use: No 2nd Hand Smoke Exposure: No Recent Foreign Travel: No Contact w/Someone Who Travel: No Recent Infectious Disease Expo: No Recent Hopitalizations: Yes (OCT 12-) Physical Abuse: No Sexual Abuse: No Mistreated: No Fear: No (JANE DHILLON) Immunizations Up To Date Tetanus Booster (TDap): Less than 5yrs Date of Pneumonia Vaccine: Jul 09, 2018 Date of Influenza Vaccine: Jul 09, 2018 (JANE DHILLON STUDENT) Seasonal Allergies Seasonal Allergies: No (JANE DHILLON) Past Medical History Surgeries: Yes Abdominal, Bowel Surgery, Joint Replacement, Orthopedic, Vascular Surgery (IVC filter placement) Respiratory: Yes (OXYGEN AT HS) COPD, Emphysema Cardiac: Yes Deep Vein Thrombosis, Hypertension Neurological: No 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 Disorders: No Genitourinary: Yes Renal Failure, UTI-Chronic Gastrointestinal: Yes (COLON RESECTION) Gastroesophageal Reflux, Hiatal Hernia Musculoskeletal: Yes (BILATERAL KNEES AND R HIP REPLACED AND BILATERAL FEMUR FX /ORIF'S ) Osteoporosis, Arthritis, Fractures Endocrine: No HEENT: Yes Glaucoma Hearing Impairment: Hard of Hearing Cancer: No Psychosocial: Yes Sleep Difficulties, Anxiety, Depression Integumentary: No Blood Disorders: Yes Adverse Reaction/Blood Tranf: No (JANE DHILLON STUDENT) Family Medical History Reviewed Nursing Family Hx (JANE DHILLON STUDENT) Reviewed Nursing Family Hx (ZULEYKA MARQUEZ MD) Alcoholism 19 FATHER Cardiovascular disease 19 MOTHER Colon cancer 19 MOTHER Diabetes mellitus 19 MOTHER Neoplasm 19 MOTHER (colon ca w/ mets to liver ) Respiratory disorder 19 FATHER No Family History of: AIDS Abdominal aortic aneurysm Arthritis Asthma Dementia Drug abuse Hypertension Kidney disease Myocardial infarction Psychosocial problem Seizure disorder Severe allergy Thyroid disease Tuberculosis Cancer, Diabetes (JANE DHILLON STUDENT) Physical Exam Vital Signs Vital Signs - First Documented 11/20/18 15:47 Temp 98.6 Pulse 80 Resp 18 B/P (MAP) 128/101 (110) Pulse Ox 91 O2 Delivery Nasal Cannula O2 Flow Rate 3.00 (ZULEYKA MARQUEZ MD) Vital Signs Capillary Refill : Less Than 3 Seconds (JANE DHILLON STUDENT) Height, Weight, BMI Height: 5'0.00" Weight: 147lbs. 0.0oz. 66.091346oc; 24.6 BMI Method:Stated General Appearance: No Apparent Distress, WD/WN, Chronically ill, Other (In wheelchair with bilateral lower extremities secured to footrests ) Eyes: Bilateral Eye Normal Inspection, Bilateral Eye PERRL, Bilateral Eye EOMI HEENT: PERRL/EOMI, TMs Normal, Normal ENT Inspection, Pharynx Normal Neck: Full Range of Motion, Normal Inspection, Non Tender, Supple Respiratory: Chest Non Tender, Lungs Clear, Normal Breath Sounds, No Accessory Muscle Use, No Respiratory Distress Cardiovascular: Regular Rate, Rhythm, No Edema, No JVD, No Murmur, Normal Peripheral Pulses Gastrointestinal: Normal Bowel Sounds, Non Tender, Soft Back: Normal Inspection, No CVA Tenderness, No Vertebral Tenderness Extremity: No Normal Range of Motion (recent bilateral tib/fib fractures ); Swelling (bilateral), Other (secured to leg rests) Neurologic/Psychiatric: Alert, Oriented x3, No Motor/Sensory Deficits, Normal 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, 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, Other (jerking of bilteral upper limbs and torso upon exam) Skin: Normal Color, Warm/Dry (JACQUIEFlyClip STUDENT) General Appearance: No Apparent Distress, Chronically ill HEENT: PERRL/EOMI, Pharynx Normal Neck: Non Tender, Supple Respiratory: Lungs Clear, Normal Breath Sounds Cardiovascular: No Murmur, Normal Peripheral Pulses, Other (occasionally note irregular rhythm on monitor that appears to be second-degree type I block) Gastrointestinal: Non Tender, Soft Back: Normal Inspection, No CVA Tenderness, No Vertebral Tenderness Extremity: Pedal Edema (2+ bilateral lower extremities to mid tibia) Neurologic/Psychiatric: Alert, Oriented x3, No Motor/Sensory Deficits Skin: Normal Color, Warm/Dry (ZULEYKA MARQUEZ MD) Progress/Results/Core Measures Suspected Sepsis Recent Fever Within 48 Hours: No Infection Criteria Present: None New/Unexplained Altered Menta: Yes Sepsis Screen: No Definite Risk SIRS Temperature:98.6 Pulse: 80 Respiratory Rate: 18 Laboratory Tests 11/20/18 15:51: White Blood Count 5.0 Blood Pressure 128 /101 Mean: 110 Laboratory Tests 11/20/18 15:51: Creatinine 1.07, Platelet Count 139, Total Bilirubin 0.6 (JACQUIEFlyClip STUDENT) Results/Orders Lab Results Laboratory Tests Test 11/20/18 15:51 11/21/18 05:15 Range/Units White Blood Count 5.0 3.3 L 4.3-11.0 10^3/uL Red Blood Count 3.66 L 3.17 L 4.35-5.85 10^6/uL Hemoglobin 11.0 L 9.3 L 11.5-16.0 G/DL Hematocrit 37 32 L 35-52 % Mean Corpuscular Volume 101 H 101 H 80-99 FL Mean Corpuscular Hemoglobin 30 29 25-34 PG Mean Corpuscular Hemoglobin Concent 30 L 29 L 32-36 G/DL Red Cell Distribution Width 17.1 H 16.9 H 10.0-14.5 % Platelet Count 139 102 L 130-400 10^3/uL Mean Platelet Volume 12.3 H 12.4 H 7.4-10.4 FL Neutrophils (%) (Auto) 65 59 42-75 % Lymphocytes (%) (Auto) 23 26 12-44 % Monocytes (%) (Auto) 6 7 0-12 % Eosinophils (%) (Auto) 5 7 0-10 % Basophils (%) (Auto) 0 0 0-10 % Neutrophils # (Auto) 3.3 1.9 1.8-7.8 X 10^3 Lymphocytes # (Auto) 1.2 0.9 L 1.0-4.0 X 10^3 Monocytes # (Auto) 0.3 0.2 0.0-1.0 X 10^3 Eosinophils # (Auto) 0.3 0.2 0.0-0.3 10^3/uL Basophils # (Auto) 0.0 0.0 0.0-0.1 10^3/uL Sodium Level 139 140 135-145 MMOL/L Potassium Level 4.3 4.3 3.6-5.0 MMOL/L Chloride Level 96 L 99 98-107 MMOL/L Carbon Dioxide Level 40 H 34 H 21-32 MMOL/L Anion Gap 3 L 7 5-14 MMOL/L Blood Urea Nitrogen 24 H 23 H 7-18 MG/DL Creatinine 1.07 0.95 0.60-1.30 MG/DL Estimat Glomerular Filtration Rate 49 56 BUN/Creatinine Ratio 22 24 Glucose Level 92 82 70-105 MG/DL Calcium Level 9.2 8.4 L 8.5-10.1 MG/DL Corrected Calcium 10.2 H 9.8 8.5-10.1 MG/DL Magnesium Level 1.8 1.8-2.4 MG/DL Total Bilirubin 0.6 0.6 0.1-1.0 MG/DL Aspartate Amino Transf (AST/SGOT) 29 23 5-34 U/L Alanine Aminotransferase (ALT/SGPT) 16 11 0-55 U/L Alkaline Phosphatase 585 H 498 H 40-136 U/L Troponin I < 0.028 <0.028 NG/ML Total Protein 6.1 L 4.8 L 6.4-8.2 GM/DL Albumin 2.7 L 2.2 L 3.2-4.5 GM/DL Thyroid Stimulating Hormone (TSH) 7.81 H 0.35-4.94 UIU/ML Free Thyroxine 1.15 0.70-1.48 NG/DL (ZULEYKA MARQUEZ MD) My Orders Orders - ZULEYKA MARQUEZ MD Cbc With Automated Diff (11/20/18 16:11) Comprehensive Metabolic Panel (11/20/18 16:11) Magnesium (11/20/18 16:11) Thyroid Stimulating Hormone (11/20/18 16:11) Troponin I (11/20/18 16:11) Ekg Tracing (11/20/18 16:11) Monitor-Rhythm Ecg Trace Only (11/20/18 16:11) Chest 1 View, Ap/Pa Only (11/20/18 16:11) Free T4 (Free Thyroxine) (11/20/18 17:16) Influenza A And B Antigens (11/20/18 17:52) (ZULEYKA MARQUEZ MD) Vital Signs/I&O 11/20/18 11/20/18 11/20/18 11/20/18 20:16 20:25 20:43 21:49 Temp 98.6 97.9 Pulse 74 79 80 Resp 18 20 B/P (MAP) 124/111 (115) 151/63 Pulse Ox 91 97 O2 Delivery Room Air Room Air Room Air O2 Flow Rate 3.00 11/20/18 11/21/18 11/21/18 23:27 01:00 04:00 Temp 98.1 97.3 Pulse 76 71 75 Resp 18 16 B/P (MAP) 102/57 (72) 124/55 (78) Pulse Ox 95 94 O2 Delivery Room Air Room Air (ZULEYKA MARQUEZ MD) Vital Signs/I&O Capillary Refill : Less Than 3 Seconds (JANE DHILLON STUDENT) Blood Pressure Mean: 110 Progress Note : Time: 15:02 Progress Note EKG showed sinus rhythm. CBC, CMP, TSH/fT4, CXR. Monitor patient. (JANE DHILLON STUDENT) Progress Note : Progress Note I have seen and evaluated the patient and agree with above except as indicated. Have directed the plan of care. IV, labs, EKG and chest x-ray ordered. Monitor patient. We will check TSH given the concerns for arrhythmia. Monitor patient. 1740: Patient was being readied for discharge and I had talked with Dr. Driscoll. She does have second-degree type I AV block noted on monitor but had not had bradycardia or weakness. While discussing discharge instructions with the patient, heart rate went down into the upper 40s. Given these concerns I have rediscussed the case with Dr. Driscoll and he believes that we should observe overnight and monitor for significant arrhythmia. He accepts patient in consult. I did discuss the case with Dr. Viramontes at 1749 and she accepts patient for admission, observation status. She requests influenza screen which has been ordered. Patient and family agree with plan. UA to be obtained after admission. (ZULEYKA MARQUEZ MD) ECG Initial ECG Impression Date: Nov 20, 2018 Initial ECG Impression Time: 15:04 Initial ECG Rate: 81 Initial ECG Rhythm: Normal Sinus Initial ECG Intervals: Normal Initial ECG Impression: Normal Initial ECG Comparisson: Unchanged Comment No evidence of STEMI. Sinus rhythm. Normal axis. Similar to previous EKG on 11/04. Previous EKG had PACs noted. Interpreted by Dr. Marquez. (JANE DHILLON STUDENT) Diagnostic Imaging Diagonstic Imaging: Xray Plain Films/CT/US/NM/MRI: chest Comments NAME: DORINA SEAMAN [facility] REC#: [id number] PT STATUS: REG ER : 1935 PHYSICIAN: ZULEYKA MARQUEZ MD ADMIT DATE: 11/20/18/ER Signed Date of Exam: 11/20/18 CHEST 1 VIEW, AP/PA ONLY EXAMINATION: Chest radiograph, portable AP view. DATE: November 20, 2018 at 1705 hours. INDICATION: 83-year-old female, tachycardia and fatigue. COMPARISON: November 09, 2018. FINDINGS: Stable overall appearance of the cardiomediastinal silhouette. There are aortic calcifications. There is no identified pneumothorax. There is no large pleural effusion. There is eventration of both hemidiaphragms. There is no identified interval focal airspace consolidation. There are bilateral glenohumeral degenerative changes. There are prior kyphoplasty changes noted. IMPRESSION: 1. No identified acute cardiopulmonary abnormality. Dictated by: Dictated on workstation # [id number] Dict: 11/20/181710 Trans: 11/20/181726 Interpreted by: LELAND MONROE MD Electronically signed by: LELAND MONROE MD 11/20/181726 Time of Consult: 16:11 (JANE DHILLON STUDENT) Departure Communication (Admissions) Time/Spoke to Admitting Phy: 17:49 Time/Spoke to Consulting Phy: 17:40 (ZULEYKA MARQUEZ MD) Impression Primary Impression: Arrhythmia Qualified Codes: I49.9 - Cardiac arrhythmia, unspecified Additional Impression: Weakness Disposition: ADMITTED INPATIENT Condition: Stable Admissions Decision to Admit Reason: Admit from ER (General) Decision to Admit/Date: Nov 20, 2018 Time/Decision to Admit Time: 17:40 (ZULEYKA MARQUEZ MD) Departure-Patient Inst. Referrals: DILMA RAHMAN MD (PCP/Family) Primary Care Physician JANE DHILLON STUDENT Nov 20, 2018 16:29 ZULEYKA MARQUEZ MD Nov 20, 2018 19:31
[2018-11-20 16:38] LABS: ALANINE AMINOTRANSFERASE 16 U/L (0-55); ALBUMIN 2.7 GM/DL (3.2-4.5); ALKALINE PHOSPHATASE 585 U/L (40-136); BILIRUBIN,TOTAL 0.6 MG/DL (0.1-1.0); BUN/CREATININE RATIO 22; CALCIUM 9.2 MG/DL (8.5-10.1); CARBON DIOXIDE 40 MMOL/L (21-32); CHLORIDE 96 MMOL/L (98-107); CREATININE SERUM 1.07 MG/DL (0.60-1.30); GFR ESTIMATED 49; GLUCOSE 92 MG/DL (70-105); MAGNESIUM 1.8 MG/DL (1.8-2.4); POTASSIUM 4.3 MMOL/L (3.6-5.0); SODIUM 139 MMOL/L (135-145); TOTAL PROTEIN 6.1 GM/DL (6.4-8.2)
--- NOTE | 2018-11-20 17:27 | Diagnostic Imaging Report ---
EXAMINATION: Chest radiograph, portable AP view. DATE: November 20, 2018 at 1705 hours. INDICATION: 83-year-old female, tachycardia and fatigue. COMPARISON: November 09, 2018. FINDINGS: Stable overall appearance of the cardiomediastinal silhouette. There are aortic calcifications. There is no identified pneumothorax. There is no large pleural effusion. There is eventration of both hemidiaphragms. There is no identified interval focal airspace consolidation. There are bilateral glenohumeral degenerative changes. There are prior kyphoplasty changes noted. IMPRESSION: 1. No identified acute cardiopulmonary abnormality. Dictated by: Dictated on workstation # [id number]
--- NOTE | 2018-11-20 17:53 | NUR ---
Daughter Keiko would like to be called with any updates or new findings for her mother. Mckenna phone number is [phone]
--- NOTE | 2018-11-20 20:25 | NUR ---
DORINA SEAMAN admitted to room 410-1, with an admitting diagnosis of arrythmia and weakness, on 11/20/18 from the ER via hospital bed, accompanied by an ER staff member. DORINA SEAMAN introduced to surroundings, call light, bed controls, phone, TV, temperature control, lights, meal times, smoking policy, visitor policy, side rail policy, bathrooms and showers. Patient Rights given to patient in the handbook. DORINA SEAMAN verbalizes understanding that [facility] is not responsible for the loss or damage to any personal effects or valuables that are kept in the patients posession during their hospitalization. Plan of care discussed and there is no questions at this time.
[2018-11-20 20:43] VITALS: BP 151/63
[2018-11-20] MEDS ORDERED: NS IV 1000 ML 1,000 ML ONE (21:11)
[2018-11-20] MEDS ORDERED: NS IV 1000 ML 1,000 ML IV SCH (22:00)
[2018-11-20 23:27] VITALS: BP 102/57
[2018-11-21 04:00] VITALS: BP 124/55
[2018-11-21 05:44] LABS: BASOPHILS % (AUTO) 0 % (0-10); EOSINOPHILS # (AUTO) 0.2 10^3/uL (0.0-0.3); EOSINOPHILS % (AUTO) 7 % (0-10); HEMATOCRIT 32 % (35-52); HEMOGLOBIN 9.3 G/DL (11.5-16.0); LYMPHOCYTES # (AUTO) 0.9 X 10^3 (1.0-4.0); LYMPHOCYTES % (AUTO) 26 % (12-44); MEAN CORPUSCULAR HEMOGLOBIN 29 PG (25-34); MEAN CORPUSCULAR HGB CONC 29 G/DL (32-36); MEAN CORPUSCULAR VOLUME 101 FL (80-99); MEAN PLATELET VOLUME 12.4 FL (7.4-10.4); MONOCYTES # (AUTO) 0.2 X 10^3 (0.0-1.0); MONOCYTES % (AUTO) 7 % (0-12); NEUTROPHILS # (AUTO) 1.9 X 10^3 (1.8-7.8); NEUTROPHILS % (AUTO) 59 % (42-75); PLATELET COUNT 102 10^3/uL (130-400); RED CELL DISTRIBUTION WIDTH 16.9 % (10.0-14.5); WHITE BLOOD COUNT 3.3 10^3/uL (4.3-11.0)
[2018-11-21 06:13] LABS: ALBUMIN 2.2 GM/DL (3.2-4.5); BILIRUBIN,TOTAL 0.6 MG/DL (0.1-1.0); CALCIUM 8.4 MG/DL (8.5-10.1); CREATININE SERUM 0.95 MG/DL (0.60-1.30); POTASSIUM 4.3 MMOL/L (3.6-5.0); TOTAL PROTEIN 4.8 GM/DL (6.4-8.2)
[2018-11-21 08:00] VITALS: BP 110/73
--- NOTE | 2018-11-21 08:49 | Consultation-Cardiology ---
HPI-Cardiology Cardiology Consultation Date of Consultation 11/21/18 Date of Admission Time Seen by Provider: 08:43 Indication: Arrhythmia HPI Patient is an 83 year old female with history of palpitations, recent tib/fib fracture secondary to fall, generalized weakness/malaise. Presented to the ER yesterday with concerns of arrhythmia noted on EKG at PCP office. In addition, patient is complaining of increased weakness over the past several months. Denies any chest pain, dyspnea, or syncope. Has history of frequent falls. Patient states that this is secondary to unsteady gait. Denies any syncopal episodes. Reports occasional episode of dizziness. Patient is somewhat a poor historian. This is Dr. Driscoll, I have seen Mrs. Goyal, she is 83 years old lady with history of recent leg fracture secondary to a fall, no syncope was reported. She was noted to have episodes of bradycardia, noted to have second-degree AV block Mobitz 1, cholangiolar generalized weakness, no syncope, heart rate during monitoring on telemetry was stable, had transient episode of bradycardia. No chest pain at this time. Overall patient is a poor historian. Home Medications & Allergies Allergies: Coded Allergies: adhesive tape (Verified Allergy, Mild, RASH, 10/12/18) aspirin (Verified Allergy, Unknown, 10/12/18) meperidine (Verified Allergy, Unknown, 10/12/18) nitrofurantoin (Verified Allergy, Unknown, 10/12/18) Uncoded Allergies: SURGICAL TAPE (Allergy, Unknown, 05/14/07) Home Medication List Reviewed: Yes QOQ-[id number]-Xluwds Hx Patient Social History Employed/Student: retired Alcohol Use: Denies Use Recreational Drug Use: No 2nd Hand Smoke Exposure: No Recent Foreign Travel: No Recent Infectious Disease Expo: No Recent Hopitalizations: Yes (OCT 12-) Physical Abuse Screen: No Sexual Abuse: No Immunizations Up To Date Tetanus Booster (TDap): Less than 5yrs Date of Pneumonia Vaccine: Jul 09, 2018 Date of Influenza Vaccine: Jul 09, 2018 Family Medical History Significant Family History: Cancer, Diabetes Family History: Alcoholism 19 FATHER Cardiovascular disease 19 MOTHER Colon cancer 19 MOTHER Diabetes mellitus 19 MOTHER Neoplasm 19 MOTHER (colon ca w/ mets to liver ) Respiratory disorder 19 FATHER No Family History of: AIDS Abdominal aortic aneurysm Arthritis Asthma Dementia Drug abuse Hypertension Kidney disease Myocardial infarction Psychosocial problem Seizure disorder Severe allergy Thyroid disease Tuberculosis Review of Systems Constitutional: No diaphoresis, No fever; malaise, weakness EENTM: No blurred vision, No double vision Respiratory: No cough, No dyspnea on exertion Cardiovascular: No chest pain, No edema; palpitations; No syncope, No vascular heart diseas Gastrointestinal: No abdominal pain, No constipation, No diarrhea Genitourinary: No dysuria, No frequency Musculoskeletal: No back pain, No joint pain Skin: No lesions Psychiatric/Neurological: Denies Anxiety, Denies Depressed Reviewed Test Results Reviewed Test Results Lab Laboratory Tests 11/20/18 15:51: White Blood Count 5.0, Red Blood Count 3.66L, Hemoglobin 11.0L, Hematocrit 37, Mean Corpuscular Volume 101H, Mean Corpuscular Hemoglobin 30, Mean Corpuscular Hemoglobin Concent 30L, Red Cell Distribution Width 17.1H, Platelet Count 139, Mean Platelet Volume 12.3H, Neutrophils (%) (Auto) 65, Lymphocytes (%) (Auto) 23 , Monocytes (%) (Auto) 6, Eosinophils (%) (Auto) 5, Basophils (%) (Auto) 0, Neutrophils # (Auto) 3.3, Lymphocytes # (Auto) 1.2, Monocytes # (Auto) 0.3, Eosinophils # (Auto) 0.3, Basophils # (Auto) 0.0, Sodium Level 139, Potassium Level 4.3, Chloride Level 96L, Carbon Dioxide Level 40H, Anion Gap 3L, Blood Urea Nitrogen 24H, Creatinine 1.07, Estimat Glomerular Filtration Rate 49, BUN/ Creatinine Ratio 22, Glucose Level 92, Calcium Level 9.2, Corrected Calcium 10.2H, Magnesium Level 1.8, Total Bilirubin 0.6, Aspartate Amino Transf (AST/ SGOT) 29, Alanine Aminotransferase (ALT/SGPT) 16, Alkaline Phosphatase 585H, Troponin I < 0.028, Total Protein 6.1L, Albumin 2.7L, Thyroid Stimulating Hormone (TSH) 7.81H, Free Thyroxine 1.15 11/21/18 05:15: White Blood Count 3.3L, Red Blood Count 3.17L, Hemoglobin 9.3L, Hematocrit 32L, Mean Corpuscular Volume 101H, Mean Corpuscular Hemoglobin 29, Mean Corpuscular Hemoglobin Concent 29L, Red Cell Distribution Width 16.9H, Platelet Count 102L, Mean Platelet Volume 12.4H, Neutrophils (%) (Auto) 59, Lymphocytes (%) (Auto) 26 , Monocytes (%) (Auto) 7, Eosinophils (%) (Auto) 7, Basophils (%) (Auto) 0, Neutrophils # (Auto) 1.9, Lymphocytes # (Auto) 0.9L, Monocytes # (Auto) 0.2, Eosinophils # (Auto) 0.2, Basophils # (Auto) 0.0, Sodium Level 140, Potassium Level 4.3, Chloride Level 99, Carbon Dioxide Level 34H, Anion Gap 7, Blood Urea Nitrogen 23H, Creatinine 0.95, Estimat Glomerular Filtration Rate 56, BUN/ Creatinine Ratio 24, Glucose Level 82, Calcium Level 8.4L, Corrected Calcium 9.8 , Total Bilirubin 0.6, Aspartate Amino Transf (AST/SGOT) 23, Alanine Aminotransferase (ALT/SGPT) 11, Alkaline Phosphatase 498H, Total Protein 4.8L, Albumin 2.2L ECG Impression ECG Initial ECG Rhythm: Normal Sinus Physical Exam Vital Signs Vital Signs - First Documented 11/20/18 15:47 Temp 98.6 Pulse 80 Resp 18 B/P (MAP) 128/101 (110) Pulse Ox 91 O2 Delivery Nasal Cannula O2 Flow Rate 3.00 Capillary Refill : Less Than 3 Seconds Height, Weight, BMI Height: 5'0.00" Weight: 158lbs. 3.2oz. 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 While in ER, patient had transient episode of 2nd degree AV block, Mobitz 1, asymptomatic at the time. Has been on telemetry revealing SR at this time. Will continue to monitor. Palpitation with abnormal Holter monitor, Holter abriliro from January 2018 had significant artifact with questionable multiple pauses and episodes of tachycardia. Echocardiogram and stress test February 2018 did not show any acute abnormality, no ischemia was noted, normal LV size and function. I will continue monitoring at this time. Planning to reevaluate event recorder Recurrent occasional episodes of chest pain, left-sided, not related to exertion. Workup has been negative, reporting improvement in her chest pain. Continue to monitor Hypertension, labile blood pressure, continue to monitor. Tib/fib fracture in October 2018 secondary to fall. Has been recovering in care home Generalized fatigue and weakness- PT to eval and tx. Multiple injuries from falling including back injury, tailbone injury hip and knee replacement surgeries Thank you for allowing us to participate in the management of Ms. Gordillo, this is Lizabeth Gupta PA-C, as a scribe for Dr. Driscoll. This is Dr. Driscoll, I have seen and evaluated Mrs. Horton with Lizabeth, examined the patient and interviewed the patient. On examination lungs were clear to auscultation bilateral, heart is regular rate and rhythm. Patient had history of palpitation, had a Holter monitor done in January 2018, she was seen in Dr. Kelly's office and noted to have episodes of bradycardia with second- degree AV block Mobitz 1, she was sent to the emergency room and admitted for generalized weakness and loss of energy. Currently she is feeling better. I recommended monitoring her with event recorder as an outpatient. Continue current medication, she is not taking any beta blockers or calcium channel blockers. No history of syncope. Pacemaker is not recommended at this point. Continue to monitor blood pressure Clinical Quality Measures DVT/VTE Risk/Contraindication: Risk Factor Score Per Nursin RFS Level Per Nursing on Admit: 4+=Very High LIZABETH STRAUSS Nov 21, 2018 08:49 KARAN DRISCOLL MD Nov 21, 2018 13:41
[2018-11-21] MEDS ORDERED: CATHETER FLUSH 10 ML SYR IV PRN (09:45)
[2018-11-21] MEDS: morphine ER 30 MG (MS CONTIN) TAB PO SCH ×2 (10:02→21:17)
--- NOTE | 2018-11-21 11:03 | History & Physical-Hospitalist ---
History of Present Illness HPI/Chief Complaint Pt is an 83yoCF known to me from multiple recent admissions for DVT and tibia fractures who presented to the ER due to new arrhythmia noted at PCPs office. She reports that for the last week or so she has been feeling weak and shakey and hardly able to feed herself. Yesterday she was trying ot eat and could not even hold her head up due to the weakness. Daughter states she seemed very confused at the time as well. In the ER she was found to have a second-degree type I AV block on telemetry and would drop her rate down to the 40s. She was admitted for observation and cardiology consult. She has no complaints today other than pain in her legs which is chronic. Source: patient, family Date Seen 11/21/18 Time Seen by a Provider: 09:30 Attending Physician Rizwan Viramontes MD PCP Titi Kelly MD Referring Physician Date of Admission Nov 20, 2018 at 17:49 Home Medications & Allergies Home Medications Reviewed patient Home Medication Reconciliation performed by pharmacy medication reconciliations farm equipment service technician and/or nursing. Patients Allergies have been reviewed. Allergies Allergies Coded Allergies adhesive tape (Verified Allergy, Mild, RASH, 10/12/18) aspirin (Verified Allergy, Unknown, 10/12/18) meperidine (Verified Allergy, Unknown, 10/12/18) nitrofurantoin (Verified Allergy, Unknown, 10/12/18) Uncoded Allergies SURGICAL TAPE ( Allergy, Unknown, 05/14/07) Past Luvfdnf-Ccuusz-Lzdjgl Hx Past Med/Social Hx: Reviewed Nursing Past Med/Soc Hx Patient Social History Employed/Student: retired Alcohol Use: Denies Use Recreational Drug Use: No 2nd Hand Smoke Exposure: No Physical Abuse Screen: No Sexual Abuse: No Recent Foreign Travel: No Contact w/other who traveled: No Recent Hopitalizations: Yes (OCT 12-) Recent Infectious Disease Expo: No Immunizations Up To Date Tetanus Booster (TDap): Less than 5yrs Date of Pneumonia Vaccine: Jul 09, 2018 Date of Influenza Vaccine: Jul 09, 2018 Seasonal Allergies Seasonal Allergies: No Past Medical History Surgeries: Abdominal, Bowel Surgery, Joint Replacement, Orthopedic, Vascular Surgery (IVC filter placement 10/2018) Cardiac: Deep Vein Thrombosis, Hypertension 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: No Genitourinary: Renal Failure, UTI-Chronic Gastrointestinal: Gastroesophageal Reflux, Hiatal Hernia Musculoskeletal: Osteoporosis, Arthritis, Fractures HEENT: Glaucoma Hearing Impairment: Hard of Hearing Psychosocial: Sleep Difficulties, Anxiety, Depression History of Blood Disorders: Yes Adverse Reaction to Blood Felipe: No Family History Reviewed Nursing Family Hx Alcoholism 19 FATHER Cardiovascular disease 19 MOTHER Colon cancer 19 MOTHER Diabetes mellitus 19 MOTHER Neoplasm 19 MOTHER (colon ca w/ mets to liver ) Respiratory disorder 19 FATHER No Family History of: AIDS Abdominal aortic aneurysm Arthritis Asthma Dementia Drug abuse Hypertension Kidney disease Myocardial infarction Psychosocial problem Seizure disorder Severe allergy Thyroid disease Tuberculosis Cancer, Diabetes Review of Systems Constitutional: weakness Cardiovascular: see HPI; No chest pain, No palpitations Musculoskeletal: joint pain All Other Systems Reviewed Negative Unless Noted: Yes (Negative excepted noted.) Physical Exam Physical Exam Vital Signs Vital Signs - First Documented 11/20/18 15:47 Temp 98.6 Pulse 80 Resp 18 B/P (MAP) 128/101 (110) Pulse Ox 91 O2 Delivery Nasal Cannula O2 Flow Rate 3.00 Capillary Refill : Less Than 3 Seconds Height, Weight, BMI Height: 5'0.00" Weight: 158lbs. 3.2oz. [id number]; 30.9 BMI Method:Stated General Appearance: No Apparent Distress, Chronically ill, Thin HEENT: No Scleral Icterus (L), No Scleral Icterus (R); Other (edentulous) Neck: Supple Respiratory: Lungs Clear, No Respiratory Distress Cardiovascular: Regular Rate, Rhythm, No Murmur Gastrointestinal: Normal Bowel Sounds, Non Tender, Soft Extremity: No Calf Tenderness, Swelling Neurologic/Psychiatric: Alert, Oriented x3 Results Results/Procedures Labs Laboratory Tests 11/20/18 15:51 11/21/18 05:15 Patient resulted labs reviewed. Imaging: Reviewed Imaging Report Assessment/Plan Admission Diagnosis Arrythmia Admission Status: Observation Diagnosis/Problems Diagnosis/Problems (1) Arrhythmia Status: Acute Assessment & Plan: new onset has been SR on telemetry overnight Cardiology consulted, appreciate recs Qualifiers: Arrhythmia type: unspecified cardiac arrhythmia Qualified Codes: I49.9 - Cardiac arrhythmia, unspecified (2) Weakness Status: Acute Assessment & Plan: PT/OT consulted WBAT on left, NWB on right (3) Thrombocytopenia Assessment & Plan: Chronic, had smear done last visit Chronic ITP Clinical Quality Measures DVT/VTE Risk/Contraindication: Risk Factor Score Per Nursin RFS Level Per Nursing on Admit: 4+=Very High RIZWAN VIRAMONTES MD Nov 21, 2018 11:03
[2018-11-21] MEDS ORDERED: MAGN400O7 PO (11:10)
[2018-11-21] MEDS ORDERED: CALC-676 PO (11:10)
[2018-11-21] MEDS ORDERED: MORP-34 PO (11:10)
[2018-11-21] MEDS ORDERED: LACT1CAP39 PO (11:10)
[2018-11-21] MEDS ORDERED: HYDR-3816 PO (11:10)
[2018-11-21] MEDS ORDERED: PANT40TA2 PO (11:10)
[2018-11-21] MEDS ORDERED: POLY17PO6 PO (11:10)
[2018-11-21] MEDS ORDERED: BISA10SU6 RC (11:10)
--- NOTE | 2018-11-21 11:13 | NUR ---
UPDATED MED REC WITH PHYSICIAN'S ORDERS FROM [facility].
[2018-11-21 12:00] VITALS: BP 126/63
[2018-11-21] MEDS: HYDROcodone/APAP 7.5 MG/325 MG (LORTAB, LORCET PLUS) TABLET PO PRN (12:05)
[2018-11-21 15:32] VITALS: BP 96/65
--- NOTE | 2018-11-21 15:51 | Occupational Therapy Eval ---
OT Evaluation-General/PLF Medical Diagnosis Admission Date Nov 20, 2018 at 17:49 Medical Diagnosis: Arrhythmia, weakness Onset Date: Nov 20, 2018 Therapy Diagnosis Therapy Diagnosis: impaired self care skills Height/Weight Height (Feet): 5 Height (Inches): 0.00 Weight (Pounds): 158 Weight (Ounces): 3.2 Precautions Precautions/Isolations: Fall Prevention, Standard Precautions Safety Interventions: Reorient-PRN Weight Bear Status Weight Bearing Restriction: Non Weight Bearing Location Restriction: R LE NWB right LE, WBAT left LE Medical History Pertinent Medical History: Arthritis, COPD, Fractures, GERD, HTN, Renal Insufficiency, Thrombosis Additional Medical History bilateral tib/fib fracture, IVC filter, bilateral TKA, right hip replacement, UTI-chronic, hiatal hernia, osteoporosis, glaucoma, NOATAK, sleep difficulties, anxiety, depression Social History Home: Long Term ADL-Prior Level of Function Therapy Code Descriptions/Definitions Functional [place] Measure: 0=Not Assessed/NA 4=Minimal Assistance 1=Total Assistance 5=Supervision or Setup 2=Maximal Assistance 6=Modified [place] 3=Moderate Assistance 7=Complete [place] Therapy Quality Codes: 6 Independent with activity with or without an assistive device 5 Patient requires set up or clean up by helper. Patient completes activity by themselves 4 Supervision or touching assist (CGA). [place] provide cues , steadying assist 3 The helper provides less than half the effort to complete the activity 2 The helper provides more than half the effort to complete the activity 1 Dependent. The helper does all the effort to complete an activity 7 Patient refused to complete or attempt activity 9 The patient did not perform the activity before the current illness or injury 88 Not attempted due to Medical conditions or safety concerns Functional Abilities and Goals: Independent: Patient completed the activities by him/herself, with or without an assistive device, with no assistance from a helper. Needed Some Help: Patient needed partial assistance from another person to complete activities. Dependent: A helper completed the activities for the patient. Unknown: Not Applicable: ADL PLOF Comments Pt states she has been at SNF after fall. Pt is NWB right LE. Pt states she has been receiving assistance with ADLs and has been completing sliding board transfers with assist. Self Care: Needed Some Help OT Current Status Subjective Pt in bed, agrees to therapy. Pt reports pain in knees and feet. Mental Status/Objective Patient Orientation: Person, Place Current Glasses/Contacts: Yes Hearing Aids: No Dentures/Partials: No Hand Dominance: Right Upper Extremity ROM Grossly WFL Upper Extremity Coordination Fair Upper Extremity Sensation intact per pt report Upper Extremity Strength decreased bilaterally ADL-Treatment ADL-Current Pt participated in UE assessment while in bed. Pt able to wash face with set up. Assist required to scoot to HOB. Pt requests assist to cut pie. Pt then able to feed self after set up. Education provided regarding role of therapy and plan of care. Pt states understanding and is in agreement with plan. Pt in bed with needs met after session. Therapy Code Descriptions/Definitions Functional [place] Measure: 0=Not Assessed/NA 4=Minimal Assistance 1=Total Assistance 5=Supervision or Setup 2=Maximal Assistance 6=Modified [place] 3=Moderate Assistance 7=Complete [place] Therapy Quality Codes: 6 Independent with activity with or without an assistive device 5 Patient requires set up or clean up by helper. Patient completes activity by themselves 4 Supervision or touching assist (CGA). [place] provide cues , steadying assist 3 The helper provides less than half the effort to complete the activity 2 The helper provides more than half the effort to complete the activity 1 Dependent. The helper does all the effort to complete an activity 7 Patient refused to complete or attempt activity 9 The patient did not perform the activity before the current illness or injury 88 Not attempted due to Medical conditions or safety concerns Eating (FIM): 5 Grooming (FIM): 5 Education OT Patient Education: Rehab process Teaching Recipient: Patient Teaching Methods: Discussion Response to Teaching: Verbalize Understanding, Reinforcement Needed OT Short Term Goals Short Term Goals 1=Demonstrate adherence to instructed precautions during ADL tasks. 2=Patient will verbalize/demonstrate understanding of assistive devices/ modifications for ADL. 3=Patient will improve strength/tolerance for activity to enable patient to perform ADL's. OT Data Communications Technician Goals Residential Goals Time Frame: Dec 05, 2018 Eating (FIM): 6 Grooming(FIM): 6 Bathing(FIM): 3 Upper Body Dressing(FIM): 5 Additional Goals: 1-Demonstrate ADL Tasks, 2-Verbalize Understanding, 3- ImproveStrength/[place] 1=Demonstrate adherence to instructed precautions during ADL tasks. 2=Patient will verbalize/demonstrate understanding of assistive devices/ modifications for ADL. 3=Patient will improve strength/tolerance for activity to enable patient to perform ADL's. OT Education/Plan Problem List/Assessment Assessment: Decreased Activ Tolerance, Decreased UE Strength, Dependent Transfers, Impaired I ADL's, Impaired Self-Care Skills Discharge Recommendations Plan/Recommendations: Continue POC Treatment Plan/Plan of Care Treatment,Training & Education: Yes Patient would benefit from OT for education, treatment and training to promote independence in ADL's, mobility, safety and/or upper extremity function for ADL' s. Plan of Care: ADL Retraining, Functional Mobility, UE Funct Exercise/Act Treatment Duration: Dec 05, 2018 Frequency: 5 times per week Estimated Hrs Per Day: .25 hour per day Rehab Potential: Fair Time/GCodes Start Time: 13:58 Stop Time: 14:16 Total Time Billed (hr/min): 18 Billed Treatment Time 1 visit, ARAMIS(18minutes) TRACY ARROYO OT Nov 21, 2018 15:51
--- NOTE | 2018-11-21 16:07 | Physical Therapy Evaluation ---
PT Evaluation-General Medical Diagnosis Admission Date Nov 20, 2018 at 17:49 Medical Diagnosis: Arrhythmia, weakness Onset Date: Nov 20, 2018 Therapy Diagnosis Therapy Diagnosis: weakness Height/Weight Height (Feet): 5 Height (Inches): 0.00 Weight (Pounds): 158 Weight (Ounces): 3.2 Precautions Precautions/Isolations: Fall Prevention, Standard Precautions Weight Bear Status Right Lower Extremity: Right Non Weight Bearing Left Lower Extremity: Left Weight Bearing/Tolerated Referral Physician: Ana M Reason for Referral: Evaluation/Treatment Medical History Pertinent Medical History: Arthritis, COPD, Fractures, GERD, HTN, Renal Insufficiency, Thrombosis Additional Medical History Pt fell approx 2 weeks ago and sustained a B tib/fib fx; She is NWB right and WBAT left Current History Pt admitted to hospital with progressive weakness and arrhythmia Reviewed History: Yes Social History Home: Single Level Current Living Status: Other Family Pt had been living at home with family until a few weeks ago, post fall she was admitted to [facility]. Prior/Core FIM Prior Level of Function Therapy Code Descriptions/Definitions Functional [place] Measure: 0=Not Assessed/NA 4=Minimal Assistance 1=Total Assistance 5=Supervision or Setup 2=Maximal Assistance 6=Modified [place] 3=Moderate Assistance 7=Complete [place] Therapy Quality Codes: 6 Independent with activity with or without an assistive device 5 Patient requires set up or clean up by helper. Patient completes activity by themselves 4 Supervision or touching assist (CGA). [place] provide cues , steadying assist 3 The helper provides less than half the effort to complete the activity 2 The helper provides more than half the effort to complete the activity 1 Dependent. The helper does all the effort to complete an activity 7 Patient refused to complete or attempt activity 9 The patient did not perform the activity before the current illness or injury 88 Not attempted due to Medical conditions or safety concerns Functional Abilities and Goals: Independent: Patient completed the activities by him/herself, with or without an assistive device, with no assistance from a helper. Needed Some Help: Patient needed partial assistance from another person to complete activities. Dependent: A helper completed the activities for the patient. Unknown: Not Applicable: Bed Mobility: 5 Transfers (B,C,W/C) (FIM): 5 Gait: 5 PT Evaluation-Current Subjective Agrees to PT. Reports she has not sat up since she has been here. Pain Numeric Pain Scale: 6 Location: Right Location Body Site: Knee (leg) Pain Description: Ache Objective Patient Orientation: Person, Place, Time, Situation Problem Solving: Fair ROM/Strength ROM Lower Extremities WFL Strength Lower Extremities grossly 3/5 throughout Integumentary/Posture Integumentary refer to nursing notes. Bowel Incontinence: No Bladder Incontinence: No Posture symmetrical Neuromuscular (Tone, Coordination, Reflexes) intact and functional Sensory Vision: Functional Hearing: Functional Hand Dominance: Right Transfers Therapy Code Descriptions/Definitions Functional [place] Measure: 0=Not Assessed/NA 4=Minimal Assistance 1=Total Assistance 5=Supervision or Setup 2=Maximal Assistance 6=Modified [place] 3=Moderate Assistance 7=Complete [place] Rollin Supine to/from Sit: 4 (min assist to guide her legs to sit EOB or to return to bed. ) Pt only sat EOB with SBA. Did not attempt other transfer at this time. Treatment Sat EOB and performed AP and LAQ intermittently B LE to promote circulation; worked on deep breathing to expand lungs while sitting EOB. Assessment/Needs Admitted with above diagnosis but also recently diagnosed with B Tib/fib fx and is NWB right and WBAT left LE. She will benefit from skilled PT to address functional transfers and strength to promote OOB acivity for optimal interaction within her environement. Rehab Potential: Fair PT Riddler Operator Goals Nursing Home Goals PT Riddler Operator Goals Time Frame: Dec 05, 2018 Transfers (B,C,W/C) (FIM): 4 PT Plan Problem List Problem List: Activity Tolerance, Functional Strength, Safety, Balance, Transfer, Bed Mobility Treatment/Plan Treatment Plan: Continue Plan of Care Treatment Plan: Bed Mobility, Education, Functional Activity Liliana, Functional Strength, Safety, Therapeutic Exercise, Transfers Treatment Duration: Dec 05, 2018 Frequency: 6 times per week Estimated Hrs Per Day: .5 hour per day Patient and/or Family Agrees t: Yes Safety Risks/Education Patient Education: Safety Issues Teaching Recipient: Patient Teaching Methods: Discussion Response to Teaching: Reinforcement Needed Discharge Recommendations Plan SPT vs slide board vs malena transfer. Time/GCodes Time In: 1535 Time Out: 1400 Total Billed Treatment Time: 25 Total Billed Treatment visit EVM 15 FA 10 RADHA CHU PT Nov 21, 2018 16:07
--- NOTE | 2018-11-21 16:36 | ST Cognitive Linguistic Eval ---
Speech Evaluation-General Medical Diagnosis Arrhythmia, weakness Onset Date: Nov 20, 2018 Therapy Diagnosis Therapy Diagnosis: Cognitive-communication Precautions Precautions/Isolations: Fall Prevention Medical History Pertinent Medical History: Arthritis, COPD, Fractures, GERD, HTN, Renal Insufficiency, Thrombosis Reviewed History: Yes Social History Current Living Status: Other Family Speech PLF-Current Status Prior Level of Function Prior to hospitalization, the patient lived with family and was able to take care of many of her daily needs. Subjective Patient was pleasant and cooperative with the evaluation process. Language Eval: Auditory Comprehends Simple Yes/No Ques: Functional Indent/Objects Multiple Alas: Functional Ident/Pics in Multiple Alas: Mild Follows 1-Step Commands: Functional Follows Complex Directions: Mild Follows General Conversations: Mild Language Eval: Verbal Language Completes Spontaneous Greeting: Functional Produces Auto, Serial Info: Mild Imitates Simple Words/Phrases: Functional Word Finding: Mild Requests Basic Needs: Functional States Basic Personal Info: Functional Expresses Complex Ideas: Moderate Objective Cognitive Domain Attention: WNL Memory: Mild Problem Solving: Moderate Executive Functions: Mild Objective Formal/Standardized Tests [facility] Cognitive/Communication Results Memory: Immediate 3/3, Delayed with cues: /3, Orientation: 5, Problem Solving: Simple 3/5, Complex 1/5, Auditory Processin/5 Oral Motor/Speech Production Within Functional Limits Impression Patient is a pleasant 83 year old female. She was able to recall the reason for her hospitalization, however she is confused about where she is in the hospital. The cognitive-communication evaluation process was completed with deficits noted in memory, orientation, problem solving and auditory processing. Speech Patient Assess Expression of Ideas/Wants: Frequently (2) Understanding Verbal Content: Sometimes Understands(2) Brief Interview-Mental Status: Yes Repetition of Three Words: Three (3) Temporal Orientation: Year: Correct (3) Temporal Orientation: Month: Accurate within 5 days(2) Temporal Orientation: Day: Incorrect or No Answer(0) Recall : Wear to say "Sock": Yes, no cue required (2) Recall : Color: No, could not recall (0) Recall : Bed: No, could not recall (0) Speech Short Term Goals Short Term Goals Short Term Goals 1) Patient will demonstrate the ability to follow simple 2-3 step directions at 90% or greater. 2) Patient will demonstrate recall of new information with 90% or greater. Speech Senior Mobile Developer Goals Senior Living Goals Patient will increase safety and independence for return to her prior living environment. Speech-Plan Treatment Plan Speech Therapy Treatment Plan: Continue Plan of Care Patient was pleasant and cooperative. Treatment Duration: Nov 23, 2018 Frequency: 5 times per week Estimated Hrs Per Day: .25 hour per day Rehab Potential: Fair Barriers to Learning: Patient has memory deficits. Pt/Family Agrees to Plan: Yes Safety Risks/Education Teaching Recipient: Patient Teaching Methods: Discussion Response to Teaching: Verbalize Understanding Education Topics Provided: Safety within her room. Time Speech Therapy Time In: 15:00 Speech Therapy Time Out: 15:15 Total Billed Time: 15 Billed Treatment Time 1, SPSNDCOMP DOROTHEA Rocha Nov 21, 2018 16:36
--- NOTE | 2018-11-21 16:46 | ST Cognitive Linguistic Eval ---
Speech Evaluation-General Medical Diagnosis Arrhythmia, weakness Onset Date: Nov 20, 2018 Therapy Diagnosis Therapy Diagnosis: Cognitive-Communication Precautions Precautions/Isolations: Fall Prevention Medical History Pertinent Medical History: Arthritis, COPD, Fractures, GERD, HTN, Renal Insufficiency, Thrombosis Reviewed History: Yes Social History Current Living Status: Other Family Speech PLF-Current Status Prior Level of Function Prior to hospital admit the patient lived with family and was independent with many of her daily needs. Subjective Patient was pleasant and cooperative. Language Eval: Auditory Comprehends Simple Yes/No Ques: Functional Indent/Objects Multiple Alas: Functional Ident/Pics in Multiple Alas: Functional Follows 1-Step Commands: Functional Follows Complex Directions: Mild Follows General Conversations: Mild Language Eval: Verbal Language Completes Spontaneous Greeting: Functional Produces Auto, Serial Info: Mild Imitates Simple Words/Phrases: Functional Word Finding: Mild Requests Basic Needs: Functional States Basic Personal Info: Functional Expresses Complex Ideas: Moderate Objective Cognitive Domain Attention: WNL Memory: Mild Problem Solving: Mild Executive Functions: Moderate Objective Formal/Standardized Tests [facility] Cognitive/Communication Results Memory: Immediate 3/3, Delayed with cues: 1/3, Orientation: 3/5, Problem Solving: Simple 3/5, Complex 1/5, Auditory Processin/5 Oral Motor/Speech Production Within Functional Limits Impression Patient is a pleasant 83 year old female who was admitted to the hospital after becoming very weak and confused. Patient remembered she was in the hospital but was unsure as to where in the hospital. Cognitive communication was completed with memory deficits noted. Speech Short Term Goals Short Term Goals Short Term Goals 1) Patient will be able to follow simple 2-3 step directions with 90% or greater. 2) Patient will be able to recall new information related to herself with 90% or greater. Speech Mcc Goals Mcc Goals Patient will increase safety and independence in order to return to her prior living situation. Speech-Plan Patient/Family Goals Patient/Family Goals: Patient plans to return home with her family upon hospital discharge. Treatment Plan Speech Therapy Treatment Plan: Continue Plan of Care Patient was pleasant and cooperative. Treatment Duration: Nov 23, 2018 Frequency: 5 times per week Estimated Hrs Per Day: .25 hour per day Rehab Potential: Fair Barriers to Learning: Patient has memory deficits. Pt/Family Agrees to Plan: Yes Safety Risks/Education Teaching Recipient: Patient Teaching Methods: Discussion Response to Teaching: Verbalize Understanding Education Topics Provided: Safety within her room. Time Speech Therapy Time In: 15:00 Speech Therapy Time Out: 15:15 Total Billed Time: 15 Billed Treatment Time 1, DOROTHEA Gan Nov 21, 2018 16:46
--- NOTE | 2018-11-21 19:33 | NUR ---
This RN called Dr. Boles in reference to the patient having a low blood pressure of 98/60. Patient is asymptomatic. Dr. Boles orders a 500ml NS bolus over an hour and then normal saline at 75 mls/hr. Order is repeated and confirmed.
[2018-11-21] MEDS ORDERED: NS IV 500 ML 500 ML ONE (19:40)
[2018-11-21] MEDS ORDERED: NS IV 1000 ML 1,000 ML IV SCH (19:45)
[2018-11-21] MEDS ORDERED: NS IV 500 ML 500 ML IV ONE (19:45)
[2018-11-21 20:00] VITALS: BP 98/60
[2018-11-22 00:54] VITALS: BP 129/63
[2018-11-22] MEDS: HYDROcodone/APAP 7.5 MG/325 MG (LORTAB, LORCET PLUS) TABLET PO PRN (01:45)
[2018-11-22 04:33] VITALS: BP 133/60
--- NOTE | 2018-11-22 08:21 | Cardiology Progress Note ---
Subjective Date Seen by Provider: Nov 22, 2018 Time Seen by Provider: 08:19 Subjective/Events-last exam Patient is in bed, complaining of generalized pain and weakness Review of Systems General: No Chills, No Night Sweats, No Fatigue, No Malaise, No Appetite, No Other HEENT: No Head Aches, No Visual Changes, No Eye Pain, No Ear Pain, No Dysphasia , No Sinus Congestion, No Post Nasal Drip, No Sore Throat, No Other Pulmonary: No Dyspnea, No Cough, No Pleuritic Chest Pain, No Other Cardiovascular: No: Chest Pain, Palpitations, Orthopnea, Paroxysmal Noc. Dyspnea, Edema, Lt Headedness, Other Objective-Cardiology Exam Last Set of Vital Signs Vital Signs 11/20/18 11/22/18 11/22/18 11/22/18 20:16 04:33 07:00 08:00 Temp 98.2 Pulse 69 Resp 12 B/P (MAP) 133/60 (84) Pulse Ox 92 O2 Delivery Room Air O2 Flow Rate 3.00 Capillary Refill : Less Than 3 Seconds I&O Intake and Output 11/21/18 23:59 Intake Total 1465 ml Output Total 600 ml Balance 865 ml Intake Oral 465 ml IV Total 1000 ml Output Urine Total 600 ml # Voids 6 # Bowel Movements 2 General: Alert, Oriented X3, Cooperative HEENT: Atraumatic, PERRLA Neck: Supple, No JVD, No Thyromegaly Lungs: Clear to Auscultation, Normal Air Movement Heart: Regular Rate, Normal S1, Normal S2, No Murmurs Abdomen: Normal Bowel Sounds, Soft, No Tenderness, No Hepatosplenomegaly, No Masses Extremities: No Clubbing, No Cyanosis, No Edema, Normal Pulses, No Tenderness/ Swelling Skin: No Rashes, No Breakdown, No Significant Lesion Neuro: Normal Gait, Normal Speech, Normal Tone, Sensation Intact Psych/Mental Status: Mental Status NL, Mood NL A/P-Cardiology Admission Diagnosis arrythmia palpitation HTN fatigue Assessment/Plan Bradycardia, patient sent to ER from PCP with concerns of arrhythmia on EKG. While in ER, patient had transient episode of 2nd degree AV block, Mobitz 1, asymptomatic at the time. Has been on telemetry revealing SR at this time, had intermittent second-degree AV block Mobitz 1, conservative management is recommended, we will evaluate event recorder for the next month Palpitation with abnormal Holter monitor, Holter monitor from January 2018 had significant artifact with questionable multiple pauses and episodes of tachycardia. Echocardiogram and stress test February 2018 did not show any acute abnormality, no ischemia was noted, normal LV size and function. I will continue monitoring at this time. Planning to reevaluate event recorder for next week Recurrent occasional episodes of chest pain, left-sided, not related to exertion. Workup has been negative, reporting improvement in her chest pain. Continue to monitor Hypertension, labile blood pressure, continue to monitor. Tib/fib fracture in October 2018 secondary to fall. Has been recovering in assisted Generalized fatigue and weakness- PT to eval and tx. Multiple injuries from falling including back injury, tailbone injury hip and knee replacement surgeries Clinical Quality Measures DVT/VTE Risk/Contraindication: Risk Factor Score Per Nursin RFS Level Per Nursing on Admit: 4+=Very High KARAN VIVEROS MD Nov 22, 2018 08:21
[2018-11-22 08:55] VITALS: BP 141/68
--- NOTE | 2018-11-22 09:07 | NUR ---
CM/SS patient will discharge this day back to [facility]. [facility] will transport at 10am. Patient and RNing updated.
--- NOTE | 2018-11-22 09:11 | Discharge Inst-Simple/Standard ---
Discharge Inst-Standard Patient Instructions/Follow Up Plan of Care/Instructions/FU: Please continue to take your medications as written. Please follow up with Dr Kelly and Dr Driscoll as scheduled. Please resume skilled orders. Activity as Tolerated: Yes Discharge Diet: No Restrictions Return to The Hospital For: Weakness, shortness of breath, chest pain, confusion, if you feel you are getting worse. RIZWAN VIDAL MD Nov 22, 2018 09:11
[2018-11-22] MEDS: morphine ER 30 MG (MS CONTIN) TAB PO SCH (09:41)
[2018-11-22 10:34] LABS: BILIRUBIN,URINE NEGATIVE (NEGATIVE); CLARITY,URINE VERY CLOUDY; COLOR,URINE YELLOW; GLUCOSE, URINE (UA) NEGATIVE (NEGATIVE); KETONES,URINE NEGATIVE (NEGATIVE); LEUKOCYTE ESTERASE ,URINE NEGATIVE (NEGATIVE); NITRITE,URINE NEGATIVE (NEGATIVE); PH,URINE 8 (5-9); PROTEIN,URINE NEGATIVE (NEGATIVE); UROBILINOGEN,URINE NORMAL (NORMAL)
[2018-11-22 10:50] VITALS: BP 141/68
[2018-11-22 11:20] LABS: AMORPHOUS SEDIMENT,UR FEW AMOR PHOSPHATE /LPF; BACTERIA,URINE FEW /HPF; RBC,URINE RARE /HPF; SQUAMOUS EPITHELIAL CELL,UR 0-2 /HPF; WBC,URINE 0-2 /HPF
[2018-11-22 11:21] LABS: HYALINE CASTS, URINE 0-2 /LPF
== END 2018-11-22 09:11 ==
LOC: EDUNIT# 15:26 → ER 15:28 → 4TH 17:49 → UNDOADMOB 17:49 → 4TH 20:20 → UNDODISOB 11-22 10:55
PROVIDERS: ADMIT Family Medicine; ATTEND Family Medicine
DX: R00.1 Bradycardia, unspecified (principal); R00.2 Palpitations; I10 Essential (primary) hypertension; R53.83 Other fatigue; R07.9 Chest pain, unspecified; R53.1 Weakness; Z86.718 Personal history of other venous thrombosis and embolism; F41.9 Anxiety disorder, unspecified; F32.9 Major depressive disorder, single episode, unspecified; D69.6 Thrombocytopenia, unspecified; Z96.653 Presence of artificial knee joint, bilateral; Z96.641 Presence of right artificial hip joint
CPT/HCPCS: 36415; 71045; 80053; 81000; 83735; 84439; 84443; 84484; 85025; 93005; 93041; G0378

== ENCOUNTER 2018-11-29 10:42 | Outpatient (RCR) | payer MEDICARE, OTHER ==
[~2018-11-29 10:42] MED LIST changes: +BISA10SU6 RC; +CALC-676 PO; +LACT1CAP39 PO; +MAGN400O7 PO; -RIVA20TA PO; +RIVA20TA2 PO
== END 2019-02-27 | disposition home or self-care (01) ==
LOC: CARD 10:42
PROVIDERS: ATTEND Internal Medicine Cardiovascular Disease
DX: R00.2 Palpitations (principal); R00.1 Bradycardia, unspecified; I44.1 Atrioventricular block, second degree
CPT/HCPCS: 93270

== ENCOUNTER → 2019-03-13 | Outpatient (CLI) | payer MEDICARE, OTHER ==
[~2019-03-13] MED LIST changes: +BARIUM SUSPENSION 105% (LIQUID POLIBAR PLUS) 240 ML/DOSE PO ONE; +BARIUM SUSPENSION 60% (LIQUID EZ PAQUE) 240 ML DOSE PO ONE
--- NOTE | 2019-03-13 12:20 | Diagnostic Imaging Report ---
INDICATION: Dysphagia. TECHNIQUE: The patient ingested effervescent crystals as well as thin and thick barium and imaging over the esophagus was performed. 1 minute and 28 seconds of fluoroscopy was utilized. FINDINGS: The preliminary radiograph of the chest is unremarkable. The esophagus does show moderate dilatation. There are tertiary contractions identified throughout the esophagus. No discrete mass or stricture is seen. There does appear to be a small hiatal hernia present. No reflux was demonstrated. IMPRESSION: Presbyesophagus and diffuse esophageal dysmotility. No discrete mass or stricture is identified. Dictated by: Dictated on workstation # [id number]
== END ==
LOC: RAD 09:45
DX: K22.4 Dyskinesia of esophagus (principal)
CPT/HCPCS: 74220

== ENCOUNTER 2019-04-08 13:15 | Outpatient (RCR) | payer MEDICARE, OTHER ==
[2019-01-14 13:23] LABS: BASOPHILS % (AUTO) 0 % (0-10); EOSINOPHILS % (AUTO) 0 % (0-10); HEMATOCRIT 40 % (35-52); HEMOGLOBIN 12.3 G/DL (11.5-16.0); LYMPHOCYTES # (AUTO) 1.3 X 10^3 (1.0-4.0); LYMPHOCYTES % (AUTO) 29 % (12-44); MEAN CORPUSCULAR HEMOGLOBIN 29 PG (25-34); MEAN CORPUSCULAR HGB CONC 31 G/DL (32-36); MEAN CORPUSCULAR VOLUME 96 FL (80-99); MEAN PLATELET VOLUME 12.1 FL (7.4-10.4); MONOCYTES # (AUTO) 0.2 X 10^3 (0.0-1.0); MONOCYTES % (AUTO) 5 % (0-12); NEUTROPHILS # (AUTO) 3.1 X 10^3 (1.8-7.8); NEUTROPHILS % (AUTO) 66 % (42-75); PLATELET COUNT 102 10^3/uL (130-400); RED CELL DISTRIBUTION WIDTH 16.4 % (10.0-14.5); WHITE BLOOD COUNT 4.6 10^3/uL (4.3-11.0)
[2019-01-14 13:47] LABS: ALBUMIN 3.1 GM/DL (3.2-4.5); BILIRUBIN,TOTAL 0.5 MG/DL (0.1-1.0); CALCIUM 8.9 MG/DL (8.5-10.1); CREATININE SERUM 0.99 MG/DL (0.60-1.30); POTASSIUM 3.8 MMOL/L (3.6-5.0); TOTAL PROTEIN 5.9 GM/DL (6.4-8.2)
[~2019-04-08 13:15] MED LIST changes: -BARIUM SUSPENSION 105% (LIQUID POLIBAR PLUS) 240 ML/DOSE PO ONE; -BARIUM SUSPENSION 60% (LIQUID EZ PAQUE) 240 ML DOSE PO ONE
[2019-04-08 13:37] LABS: BASOPHILS % (AUTO) 0 % (0-10); EOSINOPHILS # (AUTO) 0.2 10^3/uL (0.0-0.3); EOSINOPHILS % (AUTO) 6 % (0-10); HEMATOCRIT 42 % (35-52); HEMOGLOBIN 12.8 G/DL (11.5-16.0); LYMPHOCYTES # (AUTO) 1.4 X 10^3 (1.0-4.0); LYMPHOCYTES % (AUTO) 38 % (12-44); MEAN CORPUSCULAR HEMOGLOBIN 30 PG (25-34); MEAN CORPUSCULAR HGB CONC 30 G/DL (32-36); MEAN CORPUSCULAR VOLUME 100 FL (80-99); MEAN PLATELET VOLUME 12.6 FL (7.4-10.4); MONOCYTES # (AUTO) 0.3 X 10^3 (0.0-1.0); MONOCYTES % (AUTO) 9 % (0-12); NEUTROPHILS # (AUTO) 1.7 X 10^3 (1.8-7.8); NEUTROPHILS % (AUTO) 47 % (42-75); PLATELET COUNT 74 10^3/uL (130-400); RED CELL DISTRIBUTION WIDTH 14.9 % (10.0-14.5); WHITE BLOOD COUNT 3.6 10^3/uL (4.3-11.0)
[2019-04-08 13:51] LABS: ALBUMIN 2.9 GM/DL (3.2-4.5); BILIRUBIN,TOTAL 0.4 MG/DL (0.1-1.0); CALCIUM 9.1 MG/DL (8.5-10.1); CREATININE SERUM 1.25 MG/DL (0.60-1.30); POTASSIUM 4.8 MMOL/L (3.6-5.0)
== END 2019-04-14 | disposition home or self-care (01) ==
LOC: ONC 13:15
PROVIDERS: ATTEND Internal Medicine Hematology & Oncology
DX: D69.6 Thrombocytopenia, unspecified (principal)
CPT/HCPCS: 36415; 80053; 85025; 99213

== ENCOUNTER 2019-05-14 15:03 | Outpatient (RCR) | payer MEDICARE, OTHER ==
[2019-05-14 13:30] LABS: BASOPHILS % (AUTO) 0 % (0-10); EOSINOPHILS # (AUTO) 0.1 10^3/uL (0.0-0.3); EOSINOPHILS % (AUTO) 1 % (0-10); HEMATOCRIT 43 % (35-52); HEMOGLOBIN 13.3 G/DL (11.5-16.0); LYMPHOCYTES # (AUTO) 1.1 X 10^3 (1.0-4.0); LYMPHOCYTES % (AUTO) 25 % (12-44); MEAN CORPUSCULAR HEMOGLOBIN 30 PG (25-34); MEAN CORPUSCULAR HGB CONC 31 G/DL (32-36); MEAN CORPUSCULAR VOLUME 97 FL (80-99); MEAN PLATELET VOLUME 11.8 FL (7.4-10.4); MONOCYTES # (AUTO) 0.3 X 10^3 (0.0-1.0); MONOCYTES % (AUTO) 7 % (0-12); NEUTROPHILS # (AUTO) 2.9 X 10^3 (1.8-7.8); NEUTROPHILS % (AUTO) 67 % (42-75); PLATELET COUNT 69 10^3/uL (130-400); RED CELL DISTRIBUTION WIDTH 14.4 % (10.0-14.5); WHITE BLOOD COUNT 4.3 10^3/uL (4.3-11.0)
[2019-05-14 13:48] LABS: ALBUMIN 3.1 GM/DL (3.2-4.5); BILIRUBIN,TOTAL 0.5 MG/DL (0.1-1.0); CALCIUM 9.3 MG/DL (8.5-10.1); CREATININE SERUM 1.32 MG/DL (0.60-1.30); POTASSIUM 4.1 MMOL/L (3.6-5.0); TOTAL PROTEIN 6.4 GM/DL (6.4-8.2)
[~2019-05-14 15:03] MED LIST changes: -BISA10SU6 RC; +BISA10SU8 RC
[2019-05-28] MEDS ORDERED: CHOL5000 PO (09:40)
[2019-05-28] MEDS ORDERED: HYDR30CR69 RC (09:40)
[2019-05-28] MEDS ORDERED: CALC1TAB95 PO (09:40)
[2019-05-28] MEDS ORDERED: NALO25TA PO (09:40)
[2019-05-28] MEDS ORDERED: GBPN600T PO (09:40)
[2019-05-28] MEDS ORDERED: PANT40TA3 PO (09:40)
[2019-05-31] MEDS ORDERED: HYDR-34 PO (10:58)
[2019-05-31] MEDS ORDERED: MORP-34 PO (10:58)
== END 2019-08-12 | disposition home or self-care (01) ==
LOC: ONC 15:03
PROVIDERS: ATTEND Internal Medicine Hematology & Oncology
DX: D69.6 Thrombocytopenia, unspecified (principal)
CPT/HCPCS: 36415; 80053; 85025; 99213

== ENCOUNTER 2019-05-27 15:50 | Inpatient (IN) | payer MEDICARE, OTHER | END 2019-05-31 13:24 | LOC: 4TH 23:50 → ER 15:50 → 4TH 05-29 15:35 → ICU 16:35 | DX: S72.001A Fracture of unspecified part of neck of right femur, initial encounter for closed fracture (principal); D64.9 Anemia, unspecified; D69.6 Thrombocytopenia, unspecified; J43.9 Emphysema, unspecified; I10 Essential (primary) hypertension; K21.9 Gastro-esophageal reflux disease without esophagitis; K44.9 Diaphragmatic hernia without obstruction or gangrene; M54.5 Low back pain; M81.0 Age-related osteoporosis without current pathological fracture; M19.91 Primary osteoarthritis, unspecified site; H40.9 Unspecified glaucoma; G47.9 Sleep disorder, unspecified; F41.9 Anxiety disorder, unspecified; F32.9 Major depressive disorder, single episode, unspecified; W18.39XA Other fall on same level, initial encounter; Y92.002 Bathroom of unspecified non-institutional (private) residence as the place of occurrence of the external cause; Z99.81 Dependence on supplemental oxygen; Z86.718 Personal history of other venous thrombosis and embolism; Z96.642 Presence of left artificial hip joint; Z96.653 Presence of artificial knee joint, bilateral; Z95.828 Presence of other vascular implants and grafts ==

== ENCOUNTER 2019-08-31 14:20 | Inpatient (IN) | payer MEDICARE, OTHER ==
[~2019-08-31] VITALS: Ht 152.4 cm; Wt 65.5 kg
[~2019-08-31 14:20] MED LIST changes: +CHOL5000 PO; +GBPN600T PO; +HYDR30CR69 RC; +NALO25TA PO; +PANT40TA3 PO
--- NOTE | 2019-08-31 14:20 | NUR ---
See list for current medications.
[2019-08-31] MEDS ORDERED: ACETAMINOPHEN 500 MG TAB (TYLENOL) PO ONE (14:30)
[2019-08-31 14:34] LABS: BASOPHILS % (AUTO) 0 % (0-10); EOSINOPHILS # (AUTO) 0.2 10^3/uL (0.0-0.3); EOSINOPHILS % (AUTO) 7 % (0-10); HEMATOCRIT 35 % (35-52); HEMOGLOBIN 10.5 G/DL (11.5-16.0); LYMPHOCYTES # (AUTO) 0.9 X 10^3 (1.0-4.0); LYMPHOCYTES % (AUTO) 32 % (12-44); MEAN CORPUSCULAR HEMOGLOBIN 29 PG (25-34); MEAN CORPUSCULAR HGB CONC 30 G/DL (32-36); MEAN CORPUSCULAR VOLUME 98 FL (80-99); MEAN PLATELET VOLUME 12.8 FL (7.4-10.4); MONOCYTES # (AUTO) 0.3 X 10^3 (0.0-1.0); MONOCYTES % (AUTO) 10 % (0-12); NEUTROPHILS # (AUTO) 1.5 X 10^3 (1.8-7.8); NEUTROPHILS % (AUTO) 51 % (42-75); PLATELET COUNT 71 10^3/uL (130-400); RED CELL DISTRIBUTION WIDTH 14.7 % (10.0-14.5); WHITE BLOOD COUNT 2.8 10^3/uL (4.3-11.0)
[2019-08-31 14:42] LABS: INR 1.1 (0.8-1.4); PROTHROMBIN TIME PATIENT 14.6 SEC (12.2-14.7)
[2019-08-31 14:47] LABS: ALBUMIN 2.7 GM/DL (3.2-4.5); BILIRUBIN,TOTAL 0.3 MG/DL (0.1-1.0); CALCIUM 8.9 MG/DL (8.5-10.1); CREATININE SERUM 1.16 MG/DL (0.60-1.30); POTASSIUM 4.5 MMOL/L (3.6-5.0); TOTAL PROTEIN 5.1 GM/DL (6.4-8.2)
[2019-08-31 15:08] LABS: BILIRUBIN,URINE NEGATIVE (NEGATIVE); CLARITY,URINE CLEAR; COLOR,URINE YELLOW; GLUCOSE, URINE (UA) NEGATIVE (NEGATIVE); KETONES,URINE NEGATIVE (NEGATIVE); LEUKOCYTE ESTERASE ,URINE NEGATIVE (NEGATIVE); NITRITE,URINE NEGATIVE (NEGATIVE); PROTEIN,URINE NEGATIVE (NEGATIVE)
[2019-08-31 15:16] LABS: BACTERIA,URINE NEGATIVE /HPF; RBC,URINE 0-2 /HPF
--- NOTE | 2019-08-31 15:28 | Diagnostic Imaging Report ---
Indication: Dyspnea with lethargy. Comparison: 05/29/2019. Discussion: Single portable upright view of the chest was obtained. Poor inspiratory effort. Mild cardiomegaly is stable. There are hazy infiltrates present within the right perihilar region and bilateral lung bases which are nonspecific and could be seen with atelectasis due to low lung volumes though underlying edema or pneumonia is not excluded. No pleural fluid or pneumothorax. No osseous abnormality. Impression: 1. Low lung volumes with nonspecific infiltrates. Recommend continued radiographic follow-up with two views of the chest with good inspiratory effort. Dictated by: Dictated on workstation # [id number]
[2019-08-31 15:44] LABS: ABG BASE EXCESS 7.8 MMOL/L (-2.5-2.5); ABG OXYGEN SATURATION 98 % (94-100); ABG PCO2 60 MMHG (35-45); ABG PH 7.36 (7.37-7.43); ABG PO2 104 MMHG (79-93); ALLENS TEST YES-POS; INSPIRED O2 2; PATIENT TEMP 37.1; VENTILATOR NO
--- NOTE | 2019-08-31 16:00 | NUR ---
IV ns bolus initiated by cc ems, complete. 1L intake.
[2019-08-31] MEDS ORDERED: RT-ALBUTEROL/IPRATROPIUM 3 ML (DUONEB) VIAL INH ONE (16:15)
--- NOTE | 2019-08-31 16:30 | NUR ---
Multiple non blanching areas noted over sacrum. x1 1cmx0.5cm open, sloughing area noted to sacrum. Allevyn padded drsg applied to sacrum. Pt repositioned q1hr.
--- NOTE | 2019-08-31 16:39 | ED General ---
General Chief Complaint: Neurological Problems Stated Complaint: SLUGGISH Nursing Triage Note: Pt to room #5 via [facility] ems cart from [facility] with c/o generalized weakness and lethragy. Ems report recent dosage increase in morphine and gabapentin pain medication (per Dr. Rahman). 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 Upon arrival pt reports weakness and SOA that began throughtout the evening of 08/30/19. Initial O2 sat 89% via RA. 2L via NC applied and O2 sat maxine to 96%. Initial oral temp. 37.3. Severe weakness noted to bilat upper extremties. Pt remains A&OX4. Nursing Sepsis Screen: No Definite Risk Source of Information: Patient, EMS, Snf Records Exam Limitations: Other (AMS) History of Present Illness Date Seen by Provider: Aug 31, 2019 Time Seen by Provider: 14:22 Initial Comments This 84-year-old woman presents to the emergency room with complaints of malaise, weakness, and decreased alertness. She had a temperature around 100.0 for EMS. Symptoms were noted by correction staff yesterday. Patient normally is able to ambulate with a walker but states she has been unable to get up and walk today. Staff noted that she recently had an increase in medication dosing of morphine from 30 mg extended release twice a day up to 60 mg extended release twice a day. She also had an increase in gabapentin from 600 mg 3 times a day to 800 mg 3 times a day. Medication effect is suspected as a contributing factor. Patient denies any cough or shortness of breath. She does have significant pain generalized from arthritis but denies any focal pain. Her morning doses of pain medications were held due to her symptoms. EMS notes that patient had oxygen saturations in the mid to upper 80s during their initial assessment. Oxygen saturations are now in the upper 90s on 2 L by nasal cannula. Patient normally uses oxygen at bedtime. Allergies and Home Medications Allergies Coded Allergies: adhesive tape (Verified Allergy, Mild, RASH, 10/12/18) aspirin (Verified Allergy, Unknown, 10/12/18) meperidine (Verified Allergy, Unknown, 10/12/18) nitrofurantoin (Verified Allergy, Unknown, 10/12/18) Uncoded Allergies: SURGICAL TAPE (Allergy, Unknown, 05/14/07) Home Medications Calcium Carbonate/Vitamin D3 1 Each Tablet, 1 TAB PO BID, (Reported) Cholecalciferol (Vitamin D3) 5,000 Unit Capsule, 5,000 UNITS PO DAILY, (Reported ) Diclofenac Sodium 100 Gm Gel..gram., TP Q4H PRN for JOINT PAIN, (Reported) Fesoterodine Fumarate 8 Mg Tab.er.24h, 8 MG PO HS, (Reported) Fluoxetine HCl 20 Mg Capsule, 20 MG PO DAILY, (Reported) Gabapentin 600 Mg Tablet, 600 MG PO TID, (Reported) Hydrocodone Bit/Acetaminophen 1 Ea Tablet, 1 EA PO Q6H PRN for PAIN-MODERATE Prescribed by: VARGHESE TIMMONS on 05/31/19 1058 Hydrocodone/Acetaminophen 1 Each Tablet, 1 TAB PO Q6H PRN for BREAKTHROUGH PAIN, (Reported) Hydrocortisone 28.35 Gm Cream.appl, TOP QID PRN for HEMORRHOIDS, (Reported) Loteprednol Etabonate 5 Gm Drops.gel, 1 DROP OD DAILY, (Reported) Montelukast Sodium 10 Mg Tablet, 10 MG PO HS, (Reported) Morphine Sulfate 30 Mg Tablet.er, 30 MG PO BID, (Reported) Morphine Sulfate 30 Mg Tablet.er, 30 MG PO BID@0700,1900 Prescribed by: VARGHESE TIMMONS on 05/31/191057 Naloxegol Oxalate 25 Mg Tablet, 25 MG PO DAILY, (Reported) Ondansetron 8 Mg Tab.rapdis, 8 MG PO Q8H PRN for NAUSEA/VOMITING-1ST LINE, (Reported) Pantoprazole Sodium 40 Mg Tablet.dr, 40 MG PO DAILY, (Reported) Polyethylene Glycol 3350 17 Gm Powd.pack, 17 GM PO DAILY PRN for CONSTIPATION- 2ND LINE, (Reported) Polyvinyl Alcohol/Povidone 15 Ml Drops, 1 DROP OS BID, (Reported) Saliva Stimulant Agents Comb.3 1 Each Elmore, 1 SPRAY SL BID, (Reported) Sucralfate 1 Gm Tablet, 1 GM PO BID, (Reported) Patient Home Medication List Home Medication List Reviewed: Yes Review of Systems Review of Systems Constitutional: see HPI EENTM: no symptoms reported Respiratory: no symptoms reported Cardiovascular: no symptoms reported Gastrointestinal: no symptoms reported Genitourinary: no symptoms reported : No Musculoskeletal: see HPI Skin: no symptoms reported Psychiatric/Neurological: See HPI Hematologic/Lymphatic: No Symptoms Reported Past Qhsklsa-Faoqpn-Etxxsd Hx Past Med/Social Hx: Reviewed Nursing Past Med/Soc Hx Patient Social History Alcohol Use: Denies Use Recreational Drug Use: No Smoking Status: Never a Smoker 2nd Hand Smoke Exposure: No Recent Foreign Travel: No Contact w/Someone Who Travel: No Recent Infectious Disease Expo: No Recent Hopitalizations: Yes (OCT 12-) Physical Abuse: No Sexual Abuse: No Immunizations Up To Date Tetanus Booster (TDap): Less than 5yrs Date of Pneumonia Vaccine: Jul 09, 2018 Date of Influenza Vaccine: Jul 09, 2018 Seasonal Allergies Seasonal Allergies: No Past Medical History Surgeries: Yes Abdominal, Bowel Surgery, Joint Replacement, Orthopedic, Vascular Surgery Respiratory: Yes (OXYGEN AT HS) COPD, Emphysema Cardiac: Yes Deep Vein Thrombosis, Hypertension Neurological: No 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 Disorders: No Genitourinary: Yes Renal Failure, UTI-Chronic Gastrointestinal: Yes (COLON RESECTION) Gastroesophageal Reflux, Hiatal Hernia, Ulcer Musculoskeletal: Yes (BILATERAL KNEES AND R HIP REPLACED AND BILATERAL FEMUR FX/ORIF'S ) Osteoporosis, Arthritis, Fractures Endocrine: No HEENT: Yes Glaucoma Hearing Impairment: Hard of Hearing Cancer: No Psychosocial: Yes Sleep Difficulties, Anxiety, Depression Integumentary: No Blood Disorders: Yes Adverse Reaction/Blood Tranf: No Family Medical History Reviewed Nursing Family Hx Alcoholism 19 FATHER Cardiovascular disease 19 MOTHER Colon cancer 19 MOTHER Diabetes mellitus 19 MOTHER Neoplasm 19 MOTHER (colon ca w/ mets to liver ) Respiratory disorder 19 FATHER No Family History of: AIDS Abdominal aortic aneurysm Arthritis Asthma Dementia Drug abuse Hypertension Kidney disease Myocardial infarction Psychosocial problem Seizure disorder Severe allergy Thyroid disease Tuberculosis Cancer, Diabetes Physical Exam Vital Signs Vital Signs - First Documented Capillary Refill : Less Than 3 Seconds Height, Weight, BMI Height: 5'0.00" Weight: 123lbs. 0.0oz. 55.746573ws; 25.00 BMI Method:Stated General Appearance: No Apparent Distress, WD/WN, Other (appears somnolent) HEENT: PERRL/EOMI, Normal ENT Inspection, Other (mucous membranes somewhat dry) Neck: Normal Inspection, Supple Respiratory: Lungs Clear, No Accessory Muscle Use, No Respiratory Distress, Decreased Breath Sounds Cardiovascular: No Edema, Normal Peripheral Pulses, Systolic Murmur, Irregularly Irregular Focused Exam Lactate Level 08/31/19 14:25: Lactic Acid Level 0.79 Lactic Acid Level Laboratory Tests Test 08/31/19 14:25 Lactic Acid Level 0.79 MMOL/L (0.50-2.00) Progress/Results/Core Measures Suspected Sepsis Recent Fever Within 48 Hours: No Infection Criteria Present: Suspected New Infection New/Unexplained Altered Menta: No Sepsis Screen: No Definite Risk SIRS Temperature: Pulse: 85 Respiratory Rate: 20 Laboratory Tests 08/31/19 14:25: White Blood Count 2.8L Blood Pressure 121 /73 Mean: 89 08/31/19 14:25: Lactic Acid Level 0.79 Laboratory Tests 08/31/19 14:25: Creatinine 1.16, INR Comment 1.1, Platelet Count 71L, Total Bilirubin 0.3 Results/Orders Lab Results Laboratory Tests Test 08/31/19 14:25 08/31/19 14:46 08/31/19 15:34 Range/Units White Blood Count 2.8 L 4.3-11.0 10^3/uL Red Blood Count 3.63 L 4.35-5.85 10^6/uL Hemoglobin 10.5 L 11.5-16.0 G/DL Hematocrit 35 35-52 % Mean Corpuscular Volume 98 80-99 FL Mean Corpuscular Hemoglobin 29 25-34 PG Mean Corpuscular Hemoglobin Concent 30 L 32-36 G/DL Red Cell Distribution Width 14.7 H 10.0-14.5 % Platelet Count 71 L 130-400 10^3/uL Mean Platelet Volume 12.8 H 7.4-10.4 FL Neutrophils (%) (Auto) 51 42-75 % Lymphocytes (%) (Auto) 32 12-44 % Monocytes (%) (Auto) 10 0-12 % Eosinophils (%) (Auto) 7 0-10 % Basophils (%) (Auto) 0 0-10 % Neutrophils # (Auto) 1.5 L 1.8-7.8 X 10^3 Lymphocytes # (Auto) 0.9 L 1.0-4.0 X 10^3 Monocytes # (Auto) 0.3 0.0-1.0 X 10^3 Eosinophils # (Auto) 0.2 0.0-0.3 10^3/uL Basophils # (Auto) 0.0 0.0-0.1 10^3/uL Prothrombin Time 14.6 12.2-14.7 SEC INR Comment 1.1 0.8-1.4 Activated Partial Thromboplast Time 30 24-35 SEC Sodium Level 140 135-145 MMOL/L Potassium Level 4.5 3.6-5.0 MMOL/L Chloride Level 101 98-107 MMOL/L Carbon Dioxide Level 32 21-32 MMOL/L Anion Gap 7 5-14 MMOL/L Blood Urea Nitrogen 22 H 7-18 MG/DL Creatinine 1.16 0.60-1.30 MG/DL Estimat Glomerular Filtration Rate 45 BUN/Creatinine Ratio 19 Glucose Level 100 70-105 MG/DL Lactic Acid Level 0.79 0.50-2.00 MMOL/L Calcium Level 8.9 8.5-10.1 MG/DL Corrected Calcium 9.9 8.5-10.1 MG/DL Total Bilirubin 0.3 0.1-1.0 MG/DL Aspartate Amino Transf (AST/SGOT) 71 H 5-34 U/L Alanine Aminotransferase (ALT/SGPT) 38 0-55 U/L Alkaline Phosphatase 142 H 40-136 U/L C-Reactive Protein High Sensitivity 0.32 0.00-0.50 MG/DL B-Type Natriuretic Peptide 326.6 H <100.0 PG/ML Total Protein 5.1 L 6.4-8.2 GM/DL Albumin 2.7 L 3.2-4.5 GM/DL Urine Color YELLOW Urine Clarity CLEAR Urine pH 6.0 5-9 Urine Specific [place] 1.015 L 1.016-1.022 Urine Protein NEGATIVE NEGATIVE Urine Glucose (UA) NEGATIVE NEGATIVE Urine Ketones NEGATIVE NEGATIVE Urine Nitrite NEGATIVE NEGATIVE Urine Bilirubin NEGATIVE NEGATIVE Urine Urobilinogen 0.2 < = 1.0 MG/DL Urine Leukocyte Esterase NEGATIVE NEGATIVE Urine RBC (Auto) TRACE-I NEGATIVE Urine RBC 0-2 /HPF Urine WBC NONE /HPF Urine Squamous Epithelial Cells NONE /HPF Urine Crystals NONE /LPF Urine Bacteria NEGATIVE /HPF Urine Casts NONE /LPF Urine Mucus NEGATIVE /LPF Urine Culture Indicated CULTURE PENDING Blood Gas Puncture Site RT RADIAL Blood Gas Patient Temperature 37.1 Arterial Blood pH 7.36 L 7.37-7.43 Arterial Blood Partial Pressure CO2 60 H 35-45 MMHG Arterial Blood Partial Pressure O2 104 H 79-93 MMHG Arterial Blood HCO3 33 H 23-27 MMOL/L Arterial Blood Total CO2 35.0 H 21.0-31.0 MMOL/L Arterial Blood Oxygen Saturation 98 94-100 % Arterial Blood Base Excess 7.8 H -2.5-2.5 MMOL/L Reynaldo Test YES-POS Blood Gas Ventilator Setting NO Blood Gas Inspired Oxygen 2 Micro Results Microbiology 08/31/19 Influenza Types A,B Antigen (GHADA) - Final, Complete My Orders Orders - RONAK REYES MD Cbc With Automated Diff (08/31/19 14:27) Comprehensive Metabolic Panel (08/31/19 14:27) Blood Culture (08/31/19 14:27) Sputum Culture (08/31/19 14:27) Urinalysis (08/31/19 14:27) Urine Culture (08/31/19 14:27) Protime With Inr (08/31/19 14:) Partial Thromboplastin Time (08/31/19 14:) Chest 1 View, Ap/Pa Only (08/31/19 14:27) Ed Iv/Invasive Line Start (08/31/19 14:27) Ed Iv/Invasive Line Start (08/31/19 14:27) Vital Signs Adult Sepsis Patie Q15M (08/31/19 14:27) O2 (08/31/19 14:27) Remove Rings In Anticipation O (08/31/19 14:27) Lactic Acid Analyzer (08/31/19 14:27) Influenza A And B Antigens (08/31/19 14:27) Acetaminophen Tablet (Tylenol Tablet) (08/31/19 14:30) Zarco Cath (08/31/19 14:28) Ekg Tracing (08/31/19 14:31) Monitor-Rhythm Ecg Trace Only (08/31/19 14:31) Hs C Reactive Protein (08/31/19 15:05) Arterial Blood Gas (08/31/19 15:34) BNP (08/31/19 15:35) Albuterol/Ipra Inhalation Soln (Duoneb I (08/31/19 16:15) Svn Small Volume Nebulizer (08/31/19 16:11) Respiratory Virus Panel By Pcr (08/31/19 16:22) Medications Given in ED Current Medications Medications Dose Ordered Sig/Missael Route Start Time Stop Time Status Last Admin Dose Admin Acetaminophen 1,000 mg ONCE ONCE PO 08/31/19 14:30 08/31/19 14:31 DC 08/31/19 14:50 1,000 MG Albuterol/ Ipratropium 3 ml ONCE ONCE INH 08/31/19 16:15 08/31/19 16:16 DC 08/31/19 16:25 3 ML Vital Signs/I&O 08/31/19 08/31/19 08/31/19 08/31/19 14:20 14:20 14:50 16:26 Temp 37.3 37.3 Pulse 85 Resp 20 B/P (MAP) 121/73 (89) Pulse Ox 96 96 98 O2 Delivery Nasal Cannula Nasal Cannula Nasal Cannula O2 Flow Rate 2.00 2.00 2.00 Capillary Refill : Less Than 3 Seconds Blood Pressure Mean: 89 POS Progress Note : Time: 16:34 Progress Note Patient received a liter of IV fluid as initiated by EMS. She was also given a gram of Tylenol. She is feeling better after these interventions. However, she feels lightheaded and seems near syncopal when sat in an upright position. The blood pressure in sitting position did not change significantly. Workup did not reveal any specific etiology for her weakness and altered mental status. I suspect the causation is multifactorial. Respiratory sounds were a bit diminished on auscultation. Patient does have a documented history of COPD. ABG was obtained and demonstrated a PCO2 of 60 which is a bit higher than her historical PCO2 values. A DuoNeb treatment has been administered as a result. Case was discussed with Dr. Viramontes. We are in agreement patient should be admitted for observation. I suspect medication effect is also a contributing factor as she recently had increased doses of both morphine and gabapentin. Patient was noted to have an irregular rhythm. EKG was suspicious for a Mobitz type I Wenkebach. EKG was reviewed with Dr. Carlos ECG Initial ECG Impression Date: Aug 31, 2019 Initial ECG Impression Time: 14:38 Initial ECG Rate: 81 Comment Irregular sinus rhythm with lost QRS complexes suspicious for Mobitz type I heart block (Wenckebach). No ST elevation or depression. No abnormal intervals or axis deviation. Diagnostic Imaging Diagonstic Imaging: Xray Plain Films/CT/US/NM/MRI: chest Comments Chest x-ray viewed by me and report reviewed. Compared with prior. See report below: NAME: DORINA SEAMAN [facility] REC#: [id number] PT STATUS: REG ER : 1935 PHYSICIAN: RONAK REYES MD ADMIT DATE: 08/31/19/ER Signed Date of Exam:08/31/19 CHEST 1 VIEW, AP/PA ONLY Indication: Dyspnea with lethargy. Comparison: 05/29/2019. Discussion: Single portable upright view of the chest was obtained. Poor inspiratory effort. Mild cardiomegaly is stable. There are hazy infiltrates present within the right perihilar region and bilateral lung bases which are nonspecific and could be seen with atelectasis due to low lung volumes though underlying edema or pneumonia is not excluded. No pleural fluid or pneumothorax. No osseous abnormality. Impression: 1. Low lung volumes with nonspecific infiltrates. Recommend continued radiographic follow-up with two views of the chest with good inspiratory effort. Dictated by: Dictated on workstation # [id number] Dict: 08/31/19 1524 Trans: 08/31/19 1626 [facility] [id number] Interpreted by: KAYKAY KEENAN MD Electronically signed by: KAYKAY KEENAN MD 08/31/19 1626 Departure Communication (Admissions) Time/Spoke to Admitting Phy: 16:25 Dr. Viramontes Impression Primary Impression: Weakness Additional Impressions: AMS (altered mental status) Qualified Codes: R41.82 - Altered mental status, unspecified Lightheadedness Mobitz (type) I (Wenckebach's) atrioventricular block Disposition: 01 HOME, SELF-CARE Condition: Stable Admissions Decision to Admit Reason: Admit from ER (General) Decision to Admit/Date: Aug 31, 2019 Time/Decision to Admit Time: 16:20 Departure-Patient Inst. Referrals: DILMA RAHMAN MD (PCP/Family) Primary Care Physician Copy Copies To 1: DILMA RAHMAN MD, JOSHUA T MD Aug 31, 2019 16:39 POS
--- NOTE | 2019-08-31 16:50 | NUR ---
300ml urinary output via patent 16fr morse catheter.
--- NOTE | 2019-08-31 17:08 | NUR ---
Contacted [facility] (Nurse Karen) regarding pt admission. Karen voices no questions or concerns.
[2019-08-31 17:20] VITALS: BP 109/58
--- NOTE | 2019-08-31 17:30 | NUR ---
\JURGENDORINA admitted to room 422-1, with an admitting diagnosis of ams/wEAKNESS, on 08/31/19 from AM via STRETCHER, accompanied by cigarette tipper .DORINA SEAMAN introduced to surroundings, call light, bed controls, phone, TV, temperature control, lights, meal times, smoking policy, visitor policy, side rail policy, bathrooms and showers. Patient Rights given to patient in the handbook. DORINA SEAMAN verbalizes understanding that [facility] is not responsible for the loss or damage to any personal effects or valuables that are kept in the patients posession during their hospitalization. DORINA SEAMAN verbalizes understanding of Interdisciplinary Patient Education. Patient and/or family were informed about the Rapid Response Team and its purpose.
[2019-08-31 17:36] VITALS: BP 109/58
[2019-08-31] MEDS ORDERED: RT-ALBUTEROL SULF 2.5 MG/3 ML PRE-MIX VIAL INH PRN (19:15)
[2019-08-31 20:27] VITALS: BP 112/56
[2019-08-31] MEDS: RT-ALBUTEROL/IPRATROPIUM 3 ML (DUONEB) VIAL INH SCH (21:23)
[2019-08-31 23:59] VITALS: BP 103/72
[2019-09-01] MEDS: RT-ALBUTEROL/IPRATROPIUM 3 ML (DUONEB) VIAL INH SCH ×6 (01:51→22:45)
[2019-09-01 04:15] VITALS: BP 136/58
[2019-09-01 08:00] VITALS: BP 134/77
[2019-09-01 12:00] VITALS: BP 98/62
--- NOTE | 2019-09-01 12:22 | History & Physical-Hospitalist ---
History of Present Illness HPI/Chief Complaint Pt if an 84-year-old female well-known to me from multiple previous admissions for GI bleeds, DVTs, multiple fractures who presented to the emergency department due to altered mental status. She reports that she was recently increased on her morphine and gabapentin and since then she has felt more days. She does not remember much yesterday but per her snf she was quite altered and had a near syncopal episode. In the emergency department she was found to have a slightly elevated CO2 and was admitted for observation. All of her pain medicines were held and while she does complain of some leg soreness she states that her mentation is back to normal. She is unsure why her medicine was increased. Source: patient Date Seen 09/01/19 Time Seen by a Provider: 12:17 Attending Physician Rizwan Viramontes MD PCP Titi Kelly MD Referring Physician Date of Admission Aug 31, 2019 at 16:31 Home Medications & Allergies Home Medications Reviewed patient Home Medication Reconciliation performed by pharmacy medication reconciliations ballistic technician and/or nursing. Patients Allergies have been reviewed. Allergies Allergies Coded Allergies adhesive tape (Verified Allergy, Mild, RASH, 10/12/18) aspirin (Verified Allergy, Unknown, 10/12/18) meperidine (Verified Allergy, Unknown, 10/12/18) nitrofurantoin (Verified Allergy, Unknown, 10/12/18) Uncoded Allergies SURGICAL TAPE ( Allergy, Unknown, 05/14/07) Past Lkuelkr-Ryrnuh-Mxwznz Hx Past Med/Social Hx: Reviewed Nursing Past Med/Soc Hx Patient Social History Employed/Student: retired Alcohol Use: Denies Use Recreational Drug Use: No Smoking Status: Never a Smoker 2nd Hand Smoke Exposure: No Recent Foreign Travel: No Contact w/other who traveled: No Recent Hopitalizations: Yes (05/2019- hip fracture) Recent Infectious Disease Expo: No Immunizations Up To Date Tetanus Booster (TDap): Less than 5yrs Date of Pneumonia Vaccine: Aug 31, 2017 Date of Influenza Vaccine: Jul 09, 2018 Seasonal Allergies Seasonal Allergies: No Past Medical History Surgeries: Abdominal, Bowel Surgery, Joint Replacement, Orthopedic, Vascular Surgery ivc filter 11/08/2018 Cardiac: Deep Vein Thrombosis, Hypertension : No 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: No Genitourinary: Renal Failure, UTI-Chronic Gastrointestinal: Gastroesophageal Reflux, Hiatal Hernia, Ulcer Musculoskeletal: Osteoporosis, Arthritis, Fractures HEENT: Glaucoma Hearing Impairment: Hard of Hearing Psychosocial: Sleep Difficulties, Anxiety, Depression History of Blood Disorders: Yes Adverse Reaction to Blood Felipe: Yes (Transfusion reaction with platelets 05/2019) Family History Reviewed Nursing Family Hx Alcoholism 19 FATHER Cardiovascular disease 19 MOTHER Colon cancer 19 MOTHER Diabetes mellitus 19 MOTHER Neoplasm 19 MOTHER (colon ca w/ mets to liver ) Respiratory disorder 19 FATHER No Family History of: AIDS Abdominal aortic aneurysm Arthritis Asthma Dementia Drug abuse Hypertension Kidney disease Myocardial infarction Psychosocial problem Seizure disorder Severe allergy Thyroid disease Tuberculosis Cancer, Diabetes Review of Systems Constitutional: malaise, weakness EENTM: no symptoms reported Respiratory: no symptoms reported Cardiovascular: no symptoms reported Gastrointestinal: no symptoms reported Genitourinary: no symptoms reported Musculoskeletal: see HPI, back pain, joint pain, muscle stiffness Skin: no symptoms reported Psychiatric/Neurological: No Symptoms Reported Physical Exam Physical Exam Vital Signs Vital Signs - First Documented Capillary Refill : Less Than 3 SecondsLess Than 3 Seconds Height, Weight, BMI Height: 5'0.00" Weight: 123lbs. 0.0oz. 55.985740gb; 28.20 BMI Method:Stated General Appearance: No Apparent Distress, Chronically ill HEENT: Moist Mucous Membranes; No Scleral Icterus (L), No Scleral Icterus (R) Respiratory: Lungs Clear, No Accessory Muscle Use, No Respiratory Distress Cardiovascular: Regular Rate, Rhythm, No Murmur, Normal Peripheral Pulses Gastrointestinal: Normal Bowel Sounds, Non Tender, Soft Genital/Rectal: Other (morse in place) Extremity: Normal Capillary Refill, No Calf Tenderness, Pedal Edema Neurologic/Psychiatric: Alert, Oriented x3, Normal Mood/Affect Skin: Normal Color, Warm/Dry Results Results/Procedures Labs Laboratory Tests 08/31/19 14:25 Patient resulted labs reviewed. Imaging: Reviewed Imaging Report Imaging Date of Exam:08/31/19 CHEST 1 VIEW, AP/PA ONLY Indication: Dyspnea with lethargy. Comparison: 05/29/2019. Discussion: Single portable upright view of the chest was obtained. Poor inspiratory effort. Mild cardiomegaly is stable. There are hazy infiltrates present within the right perihilar region and bilateral lung bases which are nonspecific and could be seen with atelectasis due to low lung volumes though underlying edema or pneumonia is not excluded. No pleural fluid or pneumothorax. No osseous abnormality. Impression: 1. Low lung volumes with nonspecific infiltrates. Recommend continued radiographic follow-up with two views of the chest with good inspiratory effort. Assessment/Plan Admission Diagnosis AMS Admission Status: Observation Assessment and Plan Altered Mental Status No evidence of infection Likely due to medication Resolved now with holding meds Will resume lower dose morphine- hold gabapentin for now but resume lower dose if no improvement Thrombocytopenia Normocytic anemia leukopenia -Chronic, Follows with the cancer center -near her baseline Chronic back pain -Continue lower dose Morphine as above History of DVT - IVF filter placed- patient states removed but no records here to indicate removal Diagnosis/Problems Diagnosis/Problems (1) AMS (altered mental status) Status: Acute Qualifiers: Altered mental status type: unspecified Qualified Codes: R41.82 - Altered mental status, unspecified (2) Mobitz (type) I (Wenckebach's) atrioventricular block Status: Acute (3) Weakness Status: Acute (4) Normocytic anemia Status: Resolved Resolution Date/Time: 05/29/19 @ 15:42 (5) Thrombocytopenia Status: Resolved Resolution Date/Time: 05/29/19 @ 15:42 Clinical Quality Measures DVT/VTE Risk/Contraindication: Risk Factor Score Per Nursin RFS Level Per Nursing on Admit: 4+=Very High RIZWAN VIRAMONTES MD Sep 01, 2019 12:22 POS
[2019-09-01] MEDS ORDERED: morphine ER 15 MG (MS CONTIN) TAB PO NR (12:30)
[2019-09-01] MEDS ORDERED: ONDANSETRON 4 MG (ZOFRAN) ORAL DISSOLVE TAB PO PRN (12:45)
[2019-09-01 16:12] VITALS: BP 111/57
[2019-09-01 20:00] VITALS: BP 127/78
[2019-09-01] MEDS: morphine ER 30 MG (MS CONTIN) TAB PO SCH (20:25)
[2019-09-02 00:45] VITALS: BP 109/67
--- NOTE | 2019-09-02 02:10 | NUR ---
ICU NOTIFIED THIS RN OF PT'S CONCERNING TELE STRIP.
--- NOTE | 2019-09-02 02:12 | NUR ---
YOUNG NOTIFIED OF PT TELEMETRY STRIP. THIS RN TO NOTIFY DR. TILLMAN PER YOUNG REQUEST.
--- NOTE | 2019-09-02 02:42 | NUR ---
LAYNE NOTIFIED OF TELEMETRY STRIP. EKG COMPLETED AND READ TO LAYNE. NO NEW ORDERS OBTAINED. LAYNE TO SEE PT IN AM.
[2019-09-02] MEDS: RT-ALBUTEROL/IPRATROPIUM 3 ML (DUONEB) VIAL INH SCH ×3 (02:56→11:16)
[2019-09-02 04:04] VITALS: BP 116/69
[2019-09-02 08:00] VITALS: BP 152/80
[2019-09-02] MEDS: morphine ER 30 MG (MS CONTIN) TAB PO SCH (08:15)
--- NOTE | 2019-09-02 09:14 | Consultation-Cardiology ---
HPI-Cardiology Cardiology Consultation: Date of Consultation 09/02/19 Date of Admission Attending Physician Phuong Viramontes MD Admitting Physician Titi Kelly MD Consulting Physician Kareen CARLOS MD HPI: Time Seen by a Provider: 09:45 Chief Complaint: altered mental status, possible near syncope this is a 84-year-old lady with possible history of atrial fibrillation. She has history of DVT, GI bleed. She is on psychotropic medications. The dose of the psychotropic medication was increased recently. She presented with altered mental status and mild hypercapnia. She also had a mild low-grade fever. She also complained of malaise and weakness. As mentioned previously her dose of gabapentin was increased also the dose of morphine was increased as well. The patient denied any cardiac symptoms including shortness of breath, chest pain, syncope. Questionable history of near syncope. Hypoxia was noted by the EMS. Oxygen was given. She denies active smoking. No significant family history. Review of Systems-Cardiology Review of Systems Constitutional: As described under HPI; No As described under HPI, No no symptoms reported, No chills, No fever, No lightheadedness; malaise, tiredness Eyes: No As described under HPI, No no symptoms reported, No blindness, No blurred vision, No contact lenses, No drainage, No decreased acuity, No foreign body sensation, No pain, No vision change Ears/Nose/Throat: No As described under HPI, No no symptoms reported, No chronic hearing loss, No ear discharge, No ear pain, No nasal drainage, No ulcerations Respiratory: No no symptoms reported; As described under HPI; No As described under HPI, No cough, No orthopnea, No shortness of breath, No SOB with excertion Cardiovascular: No no symptoms reported; As described under HPI; No As described under HPI, No chest pain, No edema, No irregular heart rate, No lightheadedness, No palpitations Gastrointestinal: No no symptoms reported, No As described under HPI, No abdomen distended, No abdominal pain, No blood streaked bowels, No constipation, No diarrhea, No nausea, No vomiting, No stool coloration changes Genitourinary: No As described under HPI, No burning, No dysuria, No discharge, No frequency, No flank pain, No hematuria, No urgency : No Skin: No rash, No skin related problems, No ulcerations Psychiatric/Neurological: As described under HPI; No anxiety, No depression, No seizure, No focal weakness, No syncope Hematologic: No bleeding abnormalities [id number]-Mslldz Hx Patient Social History Employed/Student: retired Alcohol Use: Denies Use Recreational Drug Use: No Smoking Status: Never a Smoker 2nd Hand Smoke Exposure: No Recent Foreign Travel: No Recent Infectious Disease Expo: No Hospitalization with Isolation: Denies Immunizations Up To Date Tetanus Booster (TDap): Less than 5yrs Date of Pneumonia Vaccine: Aug 31, 2017 Date of Influenza Vaccine: Jul 09, 2018 Past Medical History PMH As described under Assessment. Family Medical History Family History: Alcoholism 19 FATHER Cardiovascular disease 19 MOTHER Colon cancer 19 MOTHER Diabetes mellitus 19 MOTHER Neoplasm 19 MOTHER (colon ca w/ mets to liver ) Respiratory disorder 19 FATHER No Family History of: AIDS Abdominal aortic aneurysm Arthritis Asthma Dementia Drug abuse Hypertension Kidney disease Myocardial infarction Psychosocial problem Seizure disorder Severe allergy Thyroid disease Tuberculosis Allergies and Home Medications Allergies Coded Allergies: adhesive tape (Verified Allergy, Mild, RASH, 10/12/18) aspirin (Verified Allergy, Unknown, 10/12/18) meperidine (Verified Allergy, Unknown, 10/12/18) nitrofurantoin (Verified Allergy, Unknown, 10/12/18) Uncoded Allergies: SURGICAL TAPE (Allergy, Unknown, 05/14/07) Home Medications Acetaminophen 325 Mg Tablet, 650 MG PO Q4H PRN for PAIN-MILD (1-4), (Reported) TAKES 2 (325MG) TABLETS Calcium Carbonate/Vitamin D3 1 Each Tablet, 1 TAB PO BID, (Reported) Cholecalciferol (Vitamin D3) 5,000 Unit Capsule, 5,000 UNITS PO DAILY, (Reported) Diclofenac Sodium 100 Gm Gel..gram., 1 GM TP Q4H PRN for JOINT PAIN, (Reported) WRISTS/KNEES Ferrous Sulfate 325 Mg Tablet, 325 MG PO DAILY, (Reported) Fesoterodine Fumarate 8 Mg Tab.er.24h, 8 MG PO HS, (Reported) Fluoxetine HCl 20 Mg Capsule, 20 MG PO DAILY, (Reported) Gabapentin 800 Mg Tablet, 800 MG PO TID, (Reported) Hydrocortisone 28.35 Gm Cream.appl, TOP QID PRN for HEMORRHOIDS, (Reported) Loteprednol Etabonate 5 Gm Drops.gel, 1 DROP OD DAILY, (Reported) Montelukast Sodium 10 Mg Tablet, 10 MG PO HS, (Reported) Morphine Sulfate 60 Mg Tablet.er, 60 MG PO Q12H, (Reported) Naloxegol Oxalate 25 Mg Tablet, 25 MG PO DAILY, (Reported) Ondansetron HCl 8 Mg Tablet, 8 MG PO Q8H PRN for NAUSEA/VOMITING-1ST LINE, (Reported) Pantoprazole Sodium 40 Mg Tablet.dr, 40 MG PO 0600, (Reported) Polyethylene Glycol 3350 17 Gm Powd.pack, 17 GM PO DAILY PRN for CONSTIPATION- 2ND LINE, (Reported) Polyvinyl Alcohol/Povidone 15 Ml Drops, 1 DROP OS BID, (Reported) Saliva Stimulant Agents Comb.3 1 Each [place], 1 SPRAY SL BID, (Reported) Sucralfate 1 Gm Tablet, 1 GM PO TIDAC, (Reported) Patient Home Medication List Home Medication List Reviewed: Yes Physical Exam-Cardiology Physical Exam Vital Signs/I&O 09/01/19 09/02/19 09/02/19 09/02/19 22:45 00:45 01:00 02:56 Temp 36.7 Pulse 71 61 Resp 16 B/P (MAP) 109/67 (81) Pulse Ox 97 98 95 O2 Delivery Nasal Cannula Nasal Cannula Nasal Cannula O2 Flow Rate 2.00 2.00 2.00 09/02/19 09/02/19 09/02/19 09/02/19 04:04 07:00 07:22 08:00 Temp 36.8 Pulse 73 67 Resp 16 B/P (MAP) 116/69 (85) Pulse Ox 97 97 95 O2 Delivery Nasal Cannula Nasal Cannula Room Air O2 Flow Rate 2.00 2.00 09/02/19 08:00 Temp 37.1 Pulse 101 Resp 18 B/P (MAP) 152/80 (104) Pulse Ox 95 O2 Delivery Nasal Cannula O2 Flow Rate 2.00 09/02/19 00:00 Intake Total 1740 ml Output Total 750 ml Balance 990 ml Capillary Refill : Less Than 3 SecondsLess Than 3 Seconds Constitutional: appears stated age, AAO x 3; No apparent distress; well- developed, well-nourished HEENT: PERRL; No discharge; hearing is well preserved, oral hygience is good; No ulceration, No xanthelasmas are seen Neck: No carotid bruit; carotid pulses are 2 + bilaterally Respiratory: chest is bilaterally symmetric, lungs clear to auscultation Cardiovascular: regular rate-rhythm, S1 and S2 Gastrointestinal: soft, audible bowel sounds; No spleenomegaly Rectal: deferred Extremities: normal range of motion, non-tender, normal inspection; No clubbing, No cyanosis; no lower extremity edema bilateral; No significant edema Neurologic/Psychiatric: no motor/sensory deficits, alert, oriented x 3, power is 5/5 both on sides Skin: normal color, warm/dry; No rash, No ulcerations Data Review Labs Microbiology 08/31/19 Blood Culture - Preliminary, Resulted No growth 08/31/19 Influenza Types A,B Antigen (GHADA) - Final, Complete 08/31/19 Urine Culture - Final, Complete NO GROWTH ECG Impression ECG Initial ECG Rhythm: Normal Sinus, PAC A/P-Cardiology Assessment/Admission Diagnosis irregular rhythm, Frequent PACs, Possible history of atrial fibrillation, History of DVT, History of GI bleeding, Altered mental status, On long-acting narcotics, On psychotropic medications. Plan irregular rhythm, I have reviewed all the telemetry strips from overnight. There is no clear atrial fibrillation however there is frequent PACs noted. Previously the patient did not tolerate beta blockers due to hypotension, therefore I will avoid for now. Frequent PACs, Possible history of atrial fibrillation, was not on oral anticoagulation due to GI bleeding. History of DVT, History of GI bleeding, Altered mental status,likely due to long-acting narcotics and increasing the dose of psychotropic medications. On long-acting narcotics, On psychotropic medications. Palpitation with abnormal Holter monitor in January 2018, the Holter has signif icant artifact with questionable multiple pauses and episodes of tachycardia. Echocardiogram and stress test done in February 2018 did not show any acute abnormality. Was hospitalized in October and found to be bradycardic with transient episode of second-degree [place] 1. asymptomatic. History of tib/fib fracture October 2018 secondary to fall. Patient has history of frequent falls secondary to unsteady gait. Denies any syncopal episodes. Nonobstructive carotid artery stenosis per carotid duplex done January 2019 History of thrombocytopenia, followed by Dr. Erwin, etiology is unknown History of recurrent UTI. Thank you for your consultation. Please call me if you have any questions. Iman Carlos MD, FACP, FACC, FSCAI, FHRS, CCDS Interventional Cardiology Cardiac Electrophysiology Vascular Medicine and Endovascular Interventions Clinical Quality Measures DVT/VTE Risk/Contraindication: Risk Factor Score Per Nursin RFS Level Per Nursing on Admit: 4+=Very High Kareen CARLOS MD Sep 02, 2019 09:14 POS
[2019-09-02] MEDS ORDERED: MORP60TA52 PO ×2 (09:15→11:06)
[2019-09-02] MEDS ORDERED: GABA800T10 PO ×2 (09:15→11:06)
[2019-09-02] MEDS ORDERED: FERR325T18 PO (09:15)
[2019-09-02] MEDS ORDERED: ACET325T38 PO (09:15)
[2019-09-02] MEDS ORDERED: ONDA8TAB12 PO (09:15)
--- NOTE | 2019-09-02 09:16 | NUR ---
UPDATED MED REC WITH PHYSICIAN'S ORDERS FROM [facility].
--- NOTE | 2019-09-02 11:13 | Discharge Summary ---
Discharge Summary Reconcile Patient Problems Problems Reviewed?: Yes Hospital Course Hospital Course Date of Admission: Sep 01, 2019 at 13:48 Admission Diagnosis : Altered mental status Family Physician/Provider: Titi Kelly MD Date of Discharge: 09/02/19 Discharge Diagnosis: Near syncope due to medication Hospital Course: Dilcia Gordillo is an 84yoF who presented with altered mental status and near syncope. Workup was unrevealing other than recently increased pain medications which were thought to be the culprit. She improved on decreased doses of pain medication. She was evaluated by cardiology for irregular heartbeat and was found to have frequent PACs. Echo showed mitral regurgitation and was otherwise normal. Her pain medicines were decreased on discharge back to [facility]. Labs and Pending Lab Test: Microbiology 08/31/19 Blood Culture - Preliminary, Resulted No growth 08/31/19 Influenza Types A,B Antigen (GHADA) - Final, Complete 08/31/19 Urine Culture - Final, Complete NO GROWTH Home Meds Active Morphine Sulfate ER (Morphine Sulfate) 60 Mg Tablet.er 30 Mg PO Q12H 30 Days Gabapentin 800 Mg Tablet 300 Mg PO TID 30 Days Reported Ferrous Sulfate 325 Mg Tablet 325 Mg PO DAILY Tylenol (Acetaminophen) 325 Mg Tablet 650 Mg PO Q4H PRN TAKES 2 (325MG) TABLETS Ondansetron HCl 8 Mg Tablet 8 Mg PO Q8H PRN Movantik (Naloxegol Oxalate) 25 Mg Tablet 25 Mg PO DAILY Calcium 600 + Vit D3 Tablet (Calcium Carbonate/Vitamin D3) 1 Each Tablet 1 Tab PO BID Pantoprazole Sodium 40 Mg Tablet.dr 40 Mg PO 0600 Vitamin D3 (Cholecalciferol (Vitamin D3)) 5,000 Unit Capsule 5,000 Units PO DAILY Miralax (Polyethylene Glycol 3350) 17 Gm Powd.pack 17 Gm PO DAILY PRN Biotene Moisturizing Mouth (Saliva Stimulant Agents Comb.3) 1 Each [place] 1 [place] SL BID Artificial Tears Drops (Polyvinyl Alcohol/Povidone) 15 Ml Drops 1 Drop OS BID Sucralfate 1 Gm Tablet 1 Gm PO TIDAC Proctosol-Hc (Hydrocortisone) 28.35 Gm Cream.appl TOP QID PRN Fluoxetine HCl 20 Mg Capsule 20 Mg PO DAILY Lotemax (Loteprednol Etabonate) 5 Gm Drops.gel 1 Drop OD DAILY Voltaren (Diclofenac Sodium) 100 Gm Gel..gram. 1 Gm TP Q4H PRN WRISTS/KNEES Toviaz (Fesoterodine Fumarate) 8 Mg Tab.er.24h 8 Mg PO HS Montelukast Sodium 10 Mg Tablet 10 Mg PO HS Instructions to Patient/Family Assessment/Instructions Take medications as prescribed. Decrease to long-acting Morphine 30 mg twice daily. Decrease to Gabapentin 300 mg three times daily. [facility] up at [facility]. Follow Up Appt.: [facility] Skilled NF Admit to: [facility] Certification ([facility]) I certify that SNF services are required to be given on an inpatient basis because of the above named patient's need for usp care on a continuing basis for the conditions(s) for which he/she was receiving inpatient hospital services prior to his/her transfer to the [facility]. Penitentiary Facility Order: Nursing Services, Wood Tank Erector-Evaluate & Treat, Physical Therapy-Evaluate & Treat Oxygen Delivery Method: Room Air Daily Activity as Tolerated: Yes Resuscitation Status: Do Not Resuscitate Varghese Timmons Sep 02, 2019 11:07 Discharge Physical Exam General: Alert, Oriented X3, Cooperative, No Acute Distress HEENT: Atraumatic, PERRLA, EOMI, Mucous Memb Moist/[place] Lungs: Clear to Auscultation, Normal Air Movement Heart: Regular Rate, Normal S1, Normal S2, No Murmurs Abdomen: Normal Bowel Sounds, Soft, No Tenderness Extremities: No Edema, No Tenderness/Swelling Skin: No Rashes, No Significant Lesion Neuro: Normal Speech, Normal Tone Psych/Mental Status: Mental Status NL, Mood NL VARGHESE TIMMONS MD Sep 02, 2019 11:13 POS
--- NOTE | 2019-09-02 11:19 | NUR ---
Pt is Mandaeism. Computer Clerk provided prayer and Communion.
--- NOTE | 2019-09-02 11:46 | NUR ---
CM DISCHARGE PLANNING: Patient will discharge to [facility]. Notified patient's daughter Keiko of patient's dismissal plan of care. She indicated that she spoke with Dr. Carmona this a.m. as well about her mom discharging. She has no concerns. Notified patient's primary care nurse Jacklyn of patient dismissing today. Updated information faxed to [facility]. 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 No further interventions noted.
[2019-09-02 12:00] VITALS: BP 113/71
--- NOTE | 2019-09-02 12:51 | NUR ---
Report called to nurse Arabella at [facility] at this time. Addendum: 09/02/19 at 1252 by MARU ROSAS RN medication changes also discussed with Nurse arabella at [facility] prior to the patient's return back to the [place].
--- NOTE | 2019-09-02 12:52 | NUR ---
Was asked by [facility] if patient could be ready for discharge by 1:15 p.m. 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 F/U with primary care nurse about discharge time et if the patient can be ready. She had questions about clean clothes for the patient. When I went into her room to assess if she had clean clothes already I noted that she had a morse catheter in place. I asked her primary care nurse about this but it was not clear to me if she was supposed to be discharged with this or not.I called et left a message for clean clothes to be brought for the patient. Primary care nurse requested that I find Katelynn [facility] et let her know. Spoke with Katelynn about milk pickup driver time et clothes. I was also unclear on if they could have Dilcia ready for discharge at 1:15p.m. but proceeded to have patient ready.
--- NOTE | 2019-09-02 13:01 | NUR ---
Contacted by [facility] staff that turkey picker time has been moved to 2:30 p.m. [facility] Jacklyn HOPPER.
--- NOTE | 2019-09-02 13:08 | NUR ---
telemetry removed prior to d/c to [facility].
--- NOTE | 2019-09-02 14:36 | NUR ---
190 MLS of yellow drainage noted in the collection container of his chest tube marked, dated and timed by this RN.
[2019-09-02 14:43] VITALS: BP 113/71
== END 2019-09-02 14:45 | DRG 312 ==
LOC: EDUNIT# 14:21 → ER 14:22 → UNDOADMOB 16:31 → 4TH 16:31 → OBSVTOIN 09-01 13:48 → INTOOBSV 09-01 13:48 → UNDODISIN 09-02 14:45
PROVIDERS: ADMIT Family Medicine; ATTEND Family Medicine
DX: R55 Syncope and collapse (principal); R41.82 Altered mental status, unspecified; T40.2X5A Adverse effect of other opioids, initial encounter; I44.1 Atrioventricular block, second degree; D64.9 Anemia, unspecified; D69.6 Thrombocytopenia, unspecified; R53.1 Weakness; D72.819 Decreased white blood cell count, unspecified; Z66 Do not resuscitate; M54.9 Dorsalgia, unspecified; I10 Essential (primary) hypertension; K21.9 Gastro-esophageal reflux disease without esophagitis; K44.9 Diaphragmatic hernia without obstruction or gangrene; H40.9 Unspecified glaucoma; H91.90 Unspecified hearing loss, unspecified ear; I65.29 Occlusion and stenosis of unspecified carotid artery; F41.9 Anxiety disorder, unspecified; F32.9 Major depressive disorder, single episode, unspecified; I07.1 Rheumatic tricuspid insufficiency; I49.1 Atrial premature depolarization; M81.0 Age-related osteoporosis without current pathological fracture; M19.91 Primary osteoarthritis, unspecified site; Z96.60 Presence of unspecified orthopedic joint implant; Z87.440 Personal history of urinary (tract) infections; Z87.19 Personal history of other diseases of the digestive system; Z86.718 Personal history of other venous thrombosis and embolism; Z91.81 History of falling
CPT/HCPCS: 36415; 51702; 71045; 80053; 81000; 82805; 83605; 83880; 85025; 85610; 85730; 86141; 87040; 87088; 87804; 93005; 93041; 93306; 94640; 94760; G0378

== ENCOUNTER → 2019-10-10 | Outpatient (CLI) | payer MEDICARE, OTHER ==
[~2019-10-10] MED LIST changes: +FERR325T18 PO; +GABA800T10 PO; +HYDR28.341 RC; +MORP60TA52 PO; +ONDA8TAB12 PO; +SALI45SP MT
--- NOTE | 2019-10-10 16:00 | Diagnostic Imaging Report ---
INDICATION: Fall with left hip and back pain. TIME OF EXAM: 2:48 p.m. FINDINGS: Two views of the left hip demonstrate postsurgical changes of left hip hemiarthroplasty. The prosthetic elements appear to be in good position. No fracture or loosening is seen. IMPRESSION: Postop changes. No acute abnormality is detected. Dictated by: Dictated on workstation # [id number]
== END ==
LOC: RAD 14:35
PROVIDERS: ATTEND Nurse Practitioner Family
DX: M25.552 Pain in left hip (principal); M54.9 Dorsalgia, unspecified; W19.XXXA Unspecified fall, initial encounter; Z98.890 Other specified postprocedural states
CPT/HCPCS: 73502

== ENCOUNTER 2019-10-12 14:27 | Observation (INO) | payer MEDICARE, OTHER ==
[~2019-10-12] VITALS: Ht 152.4 cm; Wt 66.5 kg
[~2019-10-12 14:27] MED LIST changes: -HYDR28.341 RC; -SALI45SP MT
[2019-10-12] MEDS ORDERED: NS IV 1000 ML 1,000 ML IV SCH (14:45)
--- NOTE | 2019-10-12 15:07 | Diagnostic Imaging Report ---
INDICATION: Dizziness. FINDINGS: Upright portable chest shows normal heart size and vascularity. The lungs are clear. There is no effusion or pneumothorax. IMPRESSION: No acute abnormality is seen with no change from 08/31/2019. Dictated by: Dictated on workstation # [id number]
--- NOTE | 2019-10-12 15:16 | ED General ---
General Chief Complaint: General Problems/Pain Stated Complaint: WEAKNESS Nursing Triage Note: PT TO [facility] BY [facility] WITH COMPLAINT OF WEAKNESS. PT STATES SHE FELL WENDESDAY DURING THE NIGHT. STATES TODAY, SHE IS UNABLE TO LIFT ARMS AND HAS INCREASED WEAKNESS. Nursing Sepsis Screen: No Definite Risk Source of Information: Patient, Family History of Present Illness Date Seen by Provider: Oct 12, 2019 Time Seen by Provider: 15:14 Initial Comments This 84-year-old female presents with generalized weakness for the last several days. The patient has fallen and is now unable to lift her arms. Patient denies fever, chills, headache stiff neck or photophobia, productive cough or shortness of breath, chest pain or palpitations, vomiting or diarrhea, dysuria frequency or flank pain. Allergies and Home Medications Allergies Coded Allergies: adhesive tape (Verified Allergy, Mild, RASH, 10/12/18) aspirin (Verified Allergy, Unknown, 10/12/18) meperidine (Verified Allergy, Unknown, 10/12/18) nitrofurantoin (Verified Allergy, Unknown, 10/12/18) Uncoded Allergies: SURGICAL TAPE (Allergy, Unknown, 05/14/07) Home Medications Acetaminophen 325 Mg Tablet, 650 MG PO Q4H PRN for PAIN-MILD (1-4), (Reported) TAKES 2 (325MG) TABLETS Calcium Carbonate/Vitamin D3 1 Each Tablet, 1 TAB PO BID, (Reported) Cholecalciferol (Vitamin D3) 5,000 Unit Capsule, 5,000 UNITS PO DAILY, (Reported) Diclofenac Sodium 100 Gm Gel..gram., 1 GM TP Q4H PRN for JOINT PAIN, (Reported) WRISTS/KNEES Ferrous Sulfate 325 Mg Tablet, 325 MG PO DAILY, (Reported) Fesoterodine Fumarate 8 Mg Tab.er.24h, 8 MG PO HS, (Reported) Fluoxetine HCl 20 Mg Capsule, 20 MG PO DAILY, (Reported) Gabapentin 800 Mg Tablet, 300 MG PO TID Prescribed by: VARGHESE TIMMONS on 09/02/19 1106 Hydrocortisone 28.35 Gm Cream.appl, TOP QID PRN for HEMORRHOIDS, (Reported) Loteprednol Etabonate 5 Gm Drops.gel, 1 DROP OD DAILY, (Reported) Montelukast Sodium 10 Mg Tablet, 10 MG PO HS, (Reported) Morphine Sulfate 60 Mg Tablet.er, 30 MG PO Q12H Prescribed by: VARGHESE TIMMONS on 09/02/19 1106 Naloxegol Oxalate 25 Mg Tablet, 25 MG PO DAILY, (Reported) Ondansetron HCl 8 Mg Tablet, 8 MG PO Q8H PRN for NAUSEA/VOMITING-1ST LINE, (Reported) Pantoprazole Sodium 40 Mg Tablet.dr, 40 MG PO 0600, (Reported) Polyethylene Glycol 3350 17 Gm Powd.pack, 17 GM PO DAILY PRN for CONSTIPATION- 2ND LINE, (Reported) Polyvinyl Alcohol/Povidone 15 Ml Drops, 1 DROP OS BID, (Reported) Saliva Stimulant Agents Comb.3 1 Each Dinuba, 1 SPRAY SL BID, (Reported) Sucralfate 1 Gm Tablet, 1 GM PO TIDAC, (Reported) Patient Home Medication List Home Medication List Reviewed: Yes Review of Systems Review of Systems Constitutional: No chills, No fever; weakness EENTM: no symptoms reported Respiratory: No cough, No short of breath Cardiovascular: No chest pain, No palpitations Gastrointestinal: No abdominal pain, No diarrhea, No nausea, No vomiting Genitourinary: No dysuria, No frequency Musculoskeletal: muscle weakness Skin: No rash Psychiatric/Neurological: See HPI; Denies Headache; Weakness Hematologic/Lymphatic: No Symptoms Reported Immunological/Allergic: no symptoms reported Past Xryjtkl-Jtljwr-Hdenmh Hx Past Med/Social Hx: Reviewed Nursing Past Med/Soc Hx Patient Social History Alcohol Use: Denies Use Recreational Drug Use: No Smoking Status: Never a Smoker 2nd Hand Smoke Exposure: No Recent Foreign Travel: No Contact w/Someone Who Travel: No Recent Infectious Disease Expo: No Recent Hopitalizations: No (05/2019- hip fracture) Immunizations Up To Date Tetanus Booster (TDap): Less than 5yrs Date of Pneumonia Vaccine: Aug 31, 2017 Date of Influenza Vaccine: Jul 09, 2018 Seasonal Allergies Seasonal Allergies: No Past Medical History Surgeries: Yes Abdominal, Bowel Surgery, Joint Replacement, Orthopedic, Vascular Surgery Respiratory: Yes (OXYGEN AT HS) COPD, Emphysema Cardiac: Yes Deep Vein Thrombosis, Hypertension Neurological: No 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 Disorders: No Genitourinary: Yes Renal Failure, UTI-Chronic Gastrointestinal: Yes (COLON RESECTION) Gastroesophageal Reflux, Hiatal Hernia, Ulcer Musculoskeletal: Yes (BILATERAL KNEES AND R HIP REPLACED AND BILATERAL FEMUR FX/ORIF'S ) Osteoporosis, Arthritis, Fractures Endocrine: No HEENT: Yes Glaucoma Hearing Impairment: Hard of Hearing Cancer: No Psychosocial: Yes Sleep Difficulties, Anxiety, Depression Integumentary: No Blood Disorders: Yes Adverse Reaction/Blood Tranf: Yes (Transfusion reaction with platelets 05/2019) Family Medical History Alcoholism 19 FATHER Cardiovascular disease 19 MOTHER Colon cancer 19 MOTHER Diabetes mellitus 19 MOTHER Neoplasm 19 MOTHER (colon ca w/ mets to liver ) Respiratory disorder 19 FATHER No Family History of: AIDS Abdominal aortic aneurysm Arthritis Asthma Dementia Drug abuse Hypertension Kidney disease Myocardial infarction Psychosocial problem Seizure disorder Severe allergy Thyroid disease Tuberculosis Cancer, Diabetes Physical Exam Vital Signs Vital Signs - First Documented 10/12/19 14:28 Pulse 86 Resp 20 B/P (MAP) 90/77 (81) Pulse Ox 93 O2 Delivery Nasal Cannula O2 Flow Rate 2.00 Capillary Refill : Less Than 3 Seconds Height, Weight, BMI Height: 5'0.00" Weight: 123lbs. 0.0oz. 55.969649sj; 25.00 BMI Method:Stated General Appearance: Cachetic, Mild Distress Eyes: Bilateral Eye Normal Inspection HEENT: Normal ENT Inspection Neck: Normal Inspection, Supple Respiratory: Decreased Breath Sounds Cardiovascular: Regular Rate, Rhythm Gastrointestinal: Normal Bowel Sounds Back: Normal Inspection Extremity: Normal Inspection Neurologic/Psychiatric: No Motor/Sensory Deficits, Motor Weakness Skin: Normal Color, Warm/Dry Progress/Results/Core Measures Suspected Sepsis Recent Fever Within 48 Hours: No Infection Criteria Present: None New/Unexplained Altered Menta: No Sepsis Screen: No Definite Risk SIRS Temperature: Pulse: 86 Respiratory Rate: 20 Laboratory Tests 10/12/19 15:02: White Blood Count 4.6 Blood Pressure 90 /77 Mean: 81 Laboratory Tests 10/12/19 15:02: Creatinine 1.04, Platelet Count 88L, Total Bilirubin 0.4 Results/Orders Lab Results Laboratory Tests Test 10/12/19 15:02 10/12/19 16:17 Range/Units White Blood Count 4.6 4.3-11.0 10^3/uL Red Blood Count 3.55 L 4.35-5.85 10^6/uL Hemoglobin 10.0 L 11.5-16.0 G/DL Hematocrit 35 35-52 % Mean Corpuscular Volume 98 80-99 FL Mean Corpuscular Hemoglobin 28 25-34 PG Mean Corpuscular Hemoglobin Concent 29 L 32-36 G/DL Red Cell Distribution Width 15.8 H 10.0-14.5 % Platelet Count 88 L 130-400 10^3/uL Mean Platelet Volume 12.1 H 7.4-10.4 FL Neutrophils (%) (Auto) 68 42-75 % Lymphocytes (%) (Auto) 23 12-44 % Monocytes (%) (Auto) 7 0-12 % Eosinophils (%) (Auto) 3 0-10 % Basophils (%) (Auto) 0 0-10 % Neutrophils # (Auto) 3.1 1.8-7.8 X 10^3 Lymphocytes # (Auto) 1.1 1.0-4.0 X 10^3 Monocytes # (Auto) 0.3 0.0-1.0 X 10^3 Eosinophils # (Auto) 0.2 0.0-0.3 10^3/uL Basophils # (Auto) 0.0 0.0-0.1 10^3/uL Sodium Level 141 135-145 MMOL/L Potassium Level 4.8 3.6-5.0 MMOL/L Chloride Level 103 98-107 MMOL/L Carbon Dioxide Level 31 21-32 MMOL/L Anion Gap 7 5-14 MMOL/L Blood Urea Nitrogen 26 H 7-18 MG/DL Creatinine 1.04 0.60-1.30 MG/DL Estimat Glomerular Filtration Rate 50 BUN/Creatinine Ratio 25 Glucose Level 93 70-105 MG/DL Calcium Level 8.4 L 8.5-10.1 MG/DL Corrected Calcium 9.4 8.5-10.1 MG/DL Total Bilirubin 0.4 0.1-1.0 MG/DL Aspartate Amino Transf (AST/SGOT) 24 5-34 U/L Alanine Aminotransferase (ALT/SGPT) 14 0-55 U/L Alkaline Phosphatase 120 40-136 U/L Troponin I < 0.028 <0.028 NG/ML Total Protein 5.6 L 6.4-8.2 GM/DL Albumin 2.8 L 3.2-4.5 GM/DL Lipase 5 L 8-78 U/L Urine Color YELLOW Urine Clarity CLEAR Urine pH 6.5 5-9 Urine Specific [place] 1.025 H 1.016-1.022 Urine Protein NEGATIVE NEGATIVE Urine Glucose (UA) NEGATIVE NEGATIVE Urine Ketones NEGATIVE NEGATIVE Urine Nitrite NEGATIVE NEGATIVE Urine Bilirubin NEGATIVE NEGATIVE Urine Urobilinogen 1.0 < = 1.0 MG/DL Urine Leukocyte Esterase TRACE NEGATIVE Urine RBC (Auto) NEGATIVE NEGATIVE Urine RBC RARE /HPF Urine WBC 2-5 /HPF Urine Squamous Epithelial Cells 0-2 /HPF Urine Crystals NONE /LPF Urine Bacteria NEGATIVE /HPF Urine Casts NONE /LPF Urine Mucus NEGATIVE /LPF Urine Culture Indicated NO My Orders Orders - OSEI MORENO MD Cbc With Automated Diff (10/12/19 14:40) Comprehensive Metabolic Panel (10/12/19 14:40) Lipase (10/12/19 14:40) Ua Culture If Indicated (10/12/19 14:40) Ekg Tracing (10/12/19 14:40) Troponin I (10/12/19 14:40) Chest 1 View, Ap/Pa Only (10/12/19 14:40) Ns Iv 1000 Ml (Sodium Chloride 0.9%) (10/12/19 14:45) Vital Signs/I&O 10/12/19 14:28 Pulse 86 Resp 20 B/P (MAP) 90/77 (81) Pulse Ox 93 O2 Delivery Nasal Cannula O2 Flow Rate 2.00 Capillary Refill : Less Than 3 Seconds Blood Pressure Mean: 81 Progress Note : Time: 17:17 Progress Note The patient demonstrated generalized weakness. The nurses had to assist the patient to stand up and attempt to ambulate. Patient was too weak to stand and walk on her own. Departure Communication (Admissions) Time/Spoke to Admitting Phy: 17:18 Dr. Viramontes Impression Primary Impression: Weakness generalized Disposition: ADMITTED INPATIENT Condition: Unchanged Admissions Decision to Admit Reason: Admit from ER (General) Decision to Admit/Date: Oct 12, 2019 Time/Decision to Admit Time: 17:19 Departure-Patient Inst. Referrals: DILMA RAHMAN MD (PCP/Family) Primary Care Physician OSEI MORENO MD Oct 12, 2019 15:16
[2019-10-12 15:30] LABS: BASOPHILS % (AUTO) 0 % (0-10); EOSINOPHILS # (AUTO) 0.2 10^3/uL (0.0-0.3); EOSINOPHILS % (AUTO) 3 % (0-10); HEMATOCRIT 35 % (35-52); LYMPHOCYTES # (AUTO) 1.1 X 10^3 (1.0-4.0); LYMPHOCYTES % (AUTO) 23 % (12-44); MEAN CORPUSCULAR HEMOGLOBIN 28 PG (25-34); MEAN CORPUSCULAR HGB CONC 29 G/DL (32-36); MEAN CORPUSCULAR VOLUME 98 FL (80-99); MEAN PLATELET VOLUME 12.1 FL (7.4-10.4); MONOCYTES # (AUTO) 0.3 X 10^3 (0.0-1.0); MONOCYTES % (AUTO) 7 % (0-12); NEUTROPHILS # (AUTO) 3.1 X 10^3 (1.8-7.8); NEUTROPHILS % (AUTO) 68 % (42-75); PLATELET COUNT 88 10^3/uL (130-400); RED CELL DISTRIBUTION WIDTH 15.8 % (10.0-14.5); WHITE BLOOD COUNT 4.6 10^3/uL (4.3-11.0)
[2019-10-12 15:50] LABS: ALANINE AMINOTRANSFERASE 14 U/L (0-55); ALBUMIN 2.8 GM/DL (3.2-4.5); ALKALINE PHOSPHATASE 120 U/L (40-136); BILIRUBIN,TOTAL 0.4 MG/DL (0.1-1.0); BUN/CREATININE RATIO 25; CALCIUM 8.4 MG/DL (8.5-10.1); CARBON DIOXIDE 31 MMOL/L (21-32); CHLORIDE 103 MMOL/L (98-107); CREATININE SERUM 1.04 MG/DL (0.60-1.30); GFR ESTIMATED 50; GLUCOSE 93 MG/DL (70-105); LIPASE 5 U/L (8-78); POTASSIUM 4.8 MMOL/L (3.6-5.0); SODIUM 141 MMOL/L (135-145); TOTAL PROTEIN 5.6 GM/DL (6.4-8.2)
[2019-10-12 16:23] LABS: BILIRUBIN,URINE NEGATIVE (NEGATIVE); CLARITY,URINE CLEAR; COLOR,URINE YELLOW; GLUCOSE, URINE (UA) NEGATIVE (NEGATIVE); KETONES,URINE NEGATIVE (NEGATIVE); LEUKOCYTE ESTERASE ,URINE TRACE (NEGATIVE); NITRITE,URINE NEGATIVE (NEGATIVE); PH,URINE 6.5 (5-9); PROTEIN,URINE NEGATIVE (NEGATIVE)
[2019-10-12 16:34] LABS: BACTERIA,URINE NEGATIVE /HPF; RBC,URINE RARE /HPF; SQUAMOUS EPITHELIAL CELL,UR 0-2 /HPF
--- NOTE | 2019-10-12 18:00 | NUR ---
DORINA SEAMAN admitted to room 426-1, with an admitting diagnosis of GENERALIZED WEAKNESS, on 10/12/19 from ED via [facility], accompanied by STAFF. DORINA SEAMAN introduced to surroundings, call light, bed controls, phone, TV, temperature control, lights, meal times, smoking policy, visitor policy, side rail policy, bathrooms and showers. Patient Rights given to patient in the handbook. DORINA SEAMAN verbalizes understanding that [facility] is not responsible for the loss or damage to any personal effects or valuables that are kept in the patients posession during their hospitalization. The following Patient Care Plans were discussed with the PATIENT: Discharge Planning, FALLS, MOBILITY AND KNOWLEDGE. DORINA SEAMAN verbalizes understanding of Interdisciplinary Patient Education.
[2019-10-12 18:07] VITALS: BP 109/58
[2019-10-12] MEDS ORDERED: HYDR28.341 RC ×2 (18:22→18:33)
[2019-10-12] MEDS ORDERED: SALI45SP MT (18:26)
[2019-10-12] MEDS ORDERED: MORP-34 PO (18:33)
[2019-10-12] MEDS ORDERED: GBPN600T PO (18:33)
[2019-10-12 20:00] VITALS: BP 100/65
[2019-10-12] MEDS: NS IV 1000 ML 1,000 ML IV SCH (21:37)
[2019-10-12] MEDS ORDERED: ONDANSETRON 4 MG (ZOFRAN) ORAL DISSOLVE TAB PO PRN (23:00)
[2019-10-12] MEDS ORDERED: ACETAMINOPHEN 325 MG TABLET PO PRN (23:00)
[2019-10-13] VITALS (7 sets, daily range): BP systolic 99–118; BP diastolic 62–74
[2019-10-13 06:06] LABS: BASOPHILS % (AUTO) 0 % (0-10); EOSINOPHILS # (AUTO) 0.2 10^3/uL (0.0-0.3); EOSINOPHILS % (AUTO) 5 % (0-10); HEMATOCRIT 30 % (35-52); HEMOGLOBIN 8.8 G/DL (11.5-16.0); LYMPHOCYTES # (AUTO) 1.3 X 10^3 (1.0-4.0); LYMPHOCYTES % (AUTO) 36 % (12-44); MEAN CORPUSCULAR HEMOGLOBIN 29 PG (25-34); MEAN CORPUSCULAR HGB CONC 29 G/DL (32-36); MEAN CORPUSCULAR VOLUME 98 FL (80-99); MEAN PLATELET VOLUME 12.1 FL (7.4-10.4); MONOCYTES # (AUTO) 0.3 X 10^3 (0.0-1.0); MONOCYTES % (AUTO) 8 % (0-12); NEUTROPHILS # (AUTO) 1.8 X 10^3 (1.8-7.8); NEUTROPHILS % (AUTO) 51 % (42-75); PLATELET COUNT 70 10^3/uL (130-400); RED CELL DISTRIBUTION WIDTH 15.4 % (10.0-14.5); WHITE BLOOD COUNT 3.5 10^3/uL (4.3-11.0)
[2019-10-13 06:29] LABS: ALANINE AMINOTRANSFERASE 12 U/L (0-55); ALBUMIN 2.3 GM/DL (3.2-4.5); ALKALINE PHOSPHATASE 98 U/L (40-136); BILIRUBIN,TOTAL 0.4 MG/DL (0.1-1.0); BUN/CREATININE RATIO 28; CALCIUM 7.8 MG/DL (8.5-10.1); CARBON DIOXIDE 29 MMOL/L (21-32); CHLORIDE 108 MMOL/L (98-107); CREATININE SERUM 0.85 MG/DL (0.60-1.30); GFR ESTIMATED > 60; GLUCOSE 80 MG/DL (70-105); POTASSIUM 4.6 MMOL/L (3.6-5.0); SODIUM 143 MMOL/L (135-145); TOTAL PROTEIN 4.8 GM/DL (6.4-8.2)
[2019-10-13 07:19] LABS: EOSINOPHILS % (MANUAL) 2 %; LYMPHOCYTES % (MANUAL) 32 %; MONOCYTES % (MANUAL) 4 %; NEUTROPHILS % (MANUAL) 62 %
[2019-10-13] MEDS ORDERED: CATHETER FLUSH 10 ML SYR IV PRN (08:00)
[2019-10-13] MEDS ORDERED: POLYETHYLENE GLYCOL 17 GM (MIRALAX) PACK PO PRN (12:00)
[2019-10-13] MEDS ORDERED: DICLOFENAC 1% GEL 100 GM (VOLTAREN) TUBE TP PRN (12:00)
[2019-10-13] MEDS ORDERED: ACETAMINOPHEN 325 MG TABLET PO PRN (12:00)
[2019-10-13] MEDS ORDERED: HYDROCORTISONE 2.5% CREAM (ANUSOL-HC) 30 GM TOP PRN ×2 (12:00→13:00)
[2019-10-13] MEDS ORDERED: ARTIFICAL TEARS 0.4 ML UNIT DOSE (REFRESH PLUS) OS SCH (12:45)
[2019-10-13] MEDS ORDERED: ONDANSETRON 4 MG (ZOFRAN) ORAL DISSOLVE TAB PO PRN (12:45)
[2019-10-13] MEDS ORDERED: HYDROCORTISONE 2.5% CREAM (ANUSOL-HC) 30 GM RC SCH (13:00)
--- NOTE | 2019-10-13 13:03 | History & Physical-Hospitalist ---
History of Present Illness HPI/Chief Complaint CC: Severe weakness and recent fall at halfway [facility] HPI: This is an 84yoWF halfway patient of Dr Kelly who presented to the ER with severe weakness in need of close monitoring due to recent fall this past Monday. All workup was negative but she could not ambulate so she was placed in the hospital for observation and will initiate PT/OT to help regain her function. Source: patient, RN/MD Exam Limitations: no limitations Date Seen 10/13/19 Time Seen by a Provider: 11:30 Attending Physician Josephine Sigala Rick D MD Referring Physician Date of Admission Oct 12, 2019 at 17:20 Home Medications & Allergies Home Medications Reviewed patient Home Medication Reconciliation performed by pharmacy medication reconciliations water and fire technician and/or nursing. Patients Allergies have been reviewed. Allergies Allergies Coded Allergies adhesive tape (Verified Allergy, Mild, RASH, 10/12/18) aspirin (Verified Allergy, Unknown, 10/12/18) meperidine (Verified Allergy, Unknown, 10/12/18) nitrofurantoin (Verified Allergy, Unknown, 10/12/18) Uncoded Allergies SURGICAL TAPE ( Allergy, Unknown, 05/14/07) Past Mamekmt-Okjskt-Uwwthg Hx Past Med/Social Hx: Reviewed Nursing Past Med/Soc Hx, Reviewed and Corrections made Patient Social History Marrital Status: single Employed/Student: retired Alcohol Use: Denies Use Recreational Drug Use: No Smoking Status: Never a Smoker 2nd Hand Smoke Exposure: No Recent Foreign Travel: No Contact w/other who traveled: No Recent Hopitalizations: No (05/2019- hip fracture) Recent Infectious Disease Expo: No Immunizations Up To Date Tetanus Booster (TDap): Less than 5yrs Date of Pneumonia Vaccine: Aug 31, 2017 Date of Influenza Vaccine: Jul 09, 2019 Seasonal Allergies Seasonal Allergies: No Past Medical History Surgeries: Abdominal, Bowel Surgery, Joint Replacement, Orthopedic, Vascular Surgery ivc filter 11/08/2018 Cardiac: Deep Vein Thrombosis, Hypertension : No 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: No Genitourinary: Renal Failure, UTI-Chronic Gastrointestinal: Gastroesophageal Reflux, Hiatal Hernia, Ulcer Musculoskeletal: Osteoporosis, Arthritis, Fractures HEENT: Glaucoma Hearing Impairment: Hard of Hearing Psychosocial: Sleep Difficulties, Anxiety, Depression History of Blood Disorders: Yes Adverse Reaction to Blood Felipe: Yes (Transfusion reaction with platelets 05/2019) Family History Alcoholism 19 FATHER Cardiovascular disease 19 MOTHER Colon cancer 19 MOTHER Diabetes mellitus 19 MOTHER Neoplasm 19 MOTHER (colon ca w/ mets to liver ) Respiratory disorder 19 FATHER No Family History of: AIDS Abdominal aortic aneurysm Arthritis Asthma Dementia Drug abuse Hypertension Kidney disease Myocardial infarction Psychosocial problem Seizure disorder Severe allergy Thyroid disease Tuberculosis Cancer, Diabetes Review of Systems Constitutional: see HPI, malaise, weakness Musculoskeletal: back pain Physical Exam Physical Exam Vital Signs Vital Signs - First Documented 10/12/19 10/12/19 14:28 18:07 Temp 36.6 Pulse 86 Resp 20 B/P (MAP) 90/77 (81) Pulse Ox 93 O2 Delivery Nasal Cannula O2 Flow Rate 2.00 Capillary Refill : Less Than 3 Seconds Height, Weight, BMI Height: 5'0.00" Weight: 123lbs. 0.0oz. 55.106183dn; 26.73 BMI Method:Stated General Appearance: No Apparent Distress, Chronically ill, Thin Eyes: Right Eye Normal Inspection, Right Eye PERRL HEENT: PERRL/EOMI, Normal ENT Inspection, Pharynx Normal, Moist Mucous Membranes Neck: Full Range of Motion, Normal Inspection, Non Tender Respiratory: Chest Non Tender, Lungs Clear, Normal Breath Sounds, No Accessory Muscle Use, No Respiratory Distress Cardiovascular: Regular Rate, Rhythm, No Edema, No Gallop, No JVD, No Murmur, Normal Peripheral Pulses Gastrointestinal: Normal Bowel Sounds, No Organomegaly, No Pulsatile Mass, Non Tender, Soft Back: Normal Inspection, No CVA Tenderness, No Vertebral Tenderness Extremity: Normal Capillary Refill, Normal Inspection, Normal Range of Motion, Non Tender, No Calf Tenderness, No Pedal Edema Neurologic/Psychiatric: Alert, Oriented x3, No Motor/Sensory Deficits, Normal Mood/Affect, printing services coordinator II-XII Norm as Tested, Motor Weakness (3/5 extremities) Skin: Normal Color, Warm/Dry Lymphatic: No Adenopathy Results Results/Procedures Labs Laboratory Tests 10/12/19 15:02 10/13/19 05:48 Patient resulted labs reviewed. Assessment/Plan Admission Diagnosis Assessment: Severe weakness acute on chronic Chronic debility resides at [facility] Fall Chronic pain Plan: Home meds Pain control PT/OT Admission Status: Observation Diagnosis/Problems Diagnosis/Problems (1) Weakness generalized Status: Acute Clinical Quality Measures DVT/VTE Risk/Contraindication: Risk Factor Score Per Nursin RFS Level Per Nursing on Admit: 4+=Very High JOSEPHINE SIGALA DO Oct 13, 2019 13:03
[2019-10-13] MEDS: GABAPENTIN 600 MG (NEURONTIN) TAB PO SCH ×2 (13:05→21:21)
[2019-10-13] MEDS: HYDROCORTISONE 2.5% CREAM (ANUSOL-HC) 30 GM RC SCH ×3 (13:07→21:21)
[2019-10-13] MEDS: VITAMIN D3 5,000 UNITS (CHOLECALCIFEROL ) CAPSULE PO SCH (13:07)
[2019-10-13] MEDS: SUCRALFATE 1 GM (CARAFATE) TAB PO SCH (16:16)
[2019-10-13] MEDS: NS IV 1000 ML 1,000 ML IV SCH (16:17)
[2019-10-13] MEDS ORDERED: PATIENT MAY USE OWN MEDS, ALL MC SCH (16:30)
[2019-10-13] MEDS ORDERED: MONTELUKAST 10 MG (SINGULAIR) TAB PO SCH (21:00)
[2019-10-13] MEDS: SALIVA STIMULANT MOUTH SPRAY (BIOTENE) 1.5 OZ PO SCH (21:20)
[2019-10-13] MEDS: morphine ER 30 MG (MS CONTIN) TAB PO SCH (21:20)
[2019-10-13] MEDS: ARTIFICIAL TEARS OS SCH (21:20)
[2019-10-13] MEDS: CALCIUM CARB + VIT D 600 MG (CALCARB + D) TAB PO SCH (21:21)
[2019-10-14 03:19] VITALS: BP 118/60
[2019-10-14] MEDS: NS IV 1000 ML 1,000 ML IV SCH (04:11)
[2019-10-14 04:49] LABS: BASOPHILS % (AUTO) 0 % (0-10); EOSINOPHILS # (AUTO) 0.1 10^3/uL (0.0-0.3); EOSINOPHILS % (AUTO) 4 % (0-10); HEMATOCRIT 31 % (35-52); HEMOGLOBIN 8.9 G/DL (11.5-16.0); LYMPHOCYTES # (AUTO) 1.5 X 10^3 (1.0-4.0); LYMPHOCYTES % (AUTO) 46 % (12-44); MEAN CORPUSCULAR HEMOGLOBIN 29 PG (25-34); MEAN CORPUSCULAR HGB CONC 29 G/DL (32-36); MEAN CORPUSCULAR VOLUME 98 FL (80-99); MEAN PLATELET VOLUME 11.7 FL (7.4-10.4); MONOCYTES # (AUTO) 0.2 X 10^3 (0.0-1.0); MONOCYTES % (AUTO) 7 % (0-12); NEUTROPHILS # (AUTO) 1.4 X 10^3 (1.8-7.8); NEUTROPHILS % (AUTO) 43 % (42-75); PLATELET COUNT 75 10^3/uL (130-400); RED CELL DISTRIBUTION WIDTH 15.6 % (10.0-14.5); WHITE BLOOD COUNT 3.3 10^3/uL (4.3-11.0)
[2019-10-14 05:16] LABS: BUN/CREATININE RATIO 24; CARBON DIOXIDE 29 MMOL/L (21-32); CHLORIDE 107 MMOL/L (98-107); CREATININE SERUM 0.84 MG/DL (0.60-1.30); POTASSIUM 4.9 MMOL/L (3.6-5.0); SODIUM 142 MMOL/L (135-145)
[2019-10-14] MEDS: SUCRALFATE 1 GM (CARAFATE) TAB PO SCH ×2 (05:16→11:19)
[2019-10-14 05:17] LABS: ALANINE AMINOTRANSFERASE 11 U/L (0-55); ALBUMIN 2.4 GM/DL (3.2-4.5); ALKALINE PHOSPHATASE 98 U/L (40-136); BILIRUBIN,TOTAL 0.4 MG/DL (0.1-1.0); CALCIUM 7.8 MG/DL (8.5-10.1); GFR ESTIMATED > 60; GLUCOSE 81 MG/DL (70-105); TOTAL PROTEIN 4.9 GM/DL (6.4-8.2)
[2019-10-14] MEDS ORDERED: PANTOPRAZOLE 40 MG (PROTONIX) TAB PO SCH (06:00)
[2019-10-14 08:00] VITALS: BP 159/83
[2019-10-14] MEDS ORDERED: FLUoxetine HCL 20 MG (PROzac) CAP PO SCH (09:00)
[2019-10-14] MEDS ORDERED: NON-FORMULARY MEDICATION 1 EA EA (Naloxegol Oxalate (Movantik) 25 MG) PO SCH (09:00)
[2019-10-14] MEDS ORDERED: LOTEPREDNOL OPTH OD SCH (09:00)
[2019-10-14] MEDS ORDERED: FERROUS SULF 325 MG (IRON) TAB PO SCH (09:00)
[2019-10-14] MEDS: ARTIFICIAL TEARS OS SCH (09:04)
[2019-10-14] MEDS: VITAMIN D3 5,000 UNITS (CHOLECALCIFEROL ) CAPSULE PO SCH (09:06)
[2019-10-14] MEDS: morphine ER 30 MG (MS CONTIN) TAB PO SCH (09:06)
[2019-10-14] MEDS: GABAPENTIN 600 MG (NEURONTIN) TAB PO SCH ×2 (09:06→13:34)
[2019-10-14] MEDS: SALIVA STIMULANT MOUTH SPRAY (BIOTENE) 1.5 OZ PO SCH (09:06)
[2019-10-14] MEDS: HYDROCORTISONE 2.5% CREAM (ANUSOL-HC) 30 GM RC SCH ×2 (09:10→13:34)
[2019-10-14] MEDS: CALCIUM CARB + VIT D 600 MG (CALCARB + D) TAB PO SCH (09:27)
--- NOTE | 2019-10-14 10:18 | Physical Therapy Evaluation ---
PT Evaluation-General Medical Diagnosis Admission Date Oct 12, 2019 at 17:20 Medical Diagnosis: progressive weakness Onset Date: Oct 12, 2019 Therapy Diagnosis Therapy Diagnosis: debility/weakness Height/Weight Height (Feet): 5 Height (Inches): 0.00 Weight (Pounds): 123 Weight (Ounces): 0.0 Precautions Precautions/Isolations: Fall Prevention, Standard Precautions Referral Physician: Zakiya Reason for Referral: Evaluation/Treatment Medical History Pertinent Medical History: Arthritis, COPD, Fractures, GERD, HTN, Renal Insufficiency, Thrombosis Additional Medical History bilateral THR Current History EMS secondary to fall at [facility] Reviewed History: Yes Social History Home: Assisted Prior Prior Level of Function SCALE: Activities may be completed with or without assistive devices. 5-Onfskvesjc-zcoapux completes the activity by him/herself with no assistance from a helper. 5-Set-up or Clean-up Assistance-helper sets up or cleans up; patient completes activity. Depue assists only prior to or following the activity. 4-Supervision or Touching Assistance-helper provides verbal cues and/or touching/steadying and/or contact guard assistance as patient completes activity. Assistance may be provided throughout the activity or intermittently. 3-Partial/Moderate Assistance-helper does LESS THAN HALF the effort. Depue lifts, holds or supports trunk or limbs, but provides less than half the effort. 2-Substantial/Maximal Assistance-helper does MORE THAN HALF the effort. Depue lifts or holds trunk or limbs and provides more than half the effort. 8-Kfbljozmm-fpedny does ALL the effort. Patient does none of the effort to complete the activity. Or, the assistance of 2 or more helpers is required for the patient to complete the activity. If activity was not attempted, code reason: 7-Patient Refused. 9-Not Applicable-not attempted and the patient did not perform the activity before the current illness, exacerbation or injury. 10-Not Attempted due to Environmental Limitations-(lack of equipment, weather restraints, etc.). 88-Not Attempted due to Medical Conditions or Safety Concerns. Bed Mobility: 4 Transfers (B,C,W/C): 4 Gait: 4 Indoor Mobility (Ambulation): Needed Some Help Stairs: Not Applicalbe Prior Devices Use: Walker PT Evaluation-Current Subjective Patient is in bed and agrees to PT. Pain Numeric Pain Scale: 0-No Pain Location: No Pain Reported Objective Patient Orientation: Normal For Age Attachments: IV ROM/Strength ROM Lower Extremities bilateral LE WFL Strength Lower Extremities 3/5 grossly bilateral LE Integumentary/Posture Integumentary refer to nursing notes Bowel Incontinence: No Bladder Incontinence: No Posture WFL Neuromuscular (Tone, Coordination, Reflexes) grossly intact Sensory Vision: Functional Hearing: Functional Sensation Right Lower Extremit: Intact Sensation Left Lower Extremity: Intact Transfers Roll Left to Right (QC): 5 Sit to Lying (QC): 5 Lying to Sitting/Side of Bed(Q: 5 Sit to Stand (QC): 4 Chair/Udh-ne-Gvojy Xfer(QC): 4 Gait Does the Patient Walk?: Yes Mode of Locomotion: Walk Anticipated Mode of Locomotion: Walk Walk 10 feet (QC): 4 Walk 50 ft with 2 Turns(QC): 4 Walk 150 ft (QC): 4 Distance: 175' Gait Assistive Device: FWW Comments/Gait Description safe and functional gait sequence with no deviation Balance Sitting Static: Normal Sitting Dynamic: Normal Standing Static: Normal Standing Dynamic: Normal Assessment/Needs 84 y.o. female, will be seen short term by skilled PT to address functional strength and mobility to improve current LOF to safely return to [place] at maximum LOF. Rehab Potential: Fair PT Group Home Goals Top Stop Attacher Goals PT Group Home Goals Time Frame: Oct 26, 2019 Roll Left & Right (QC): 5 Sit to Lying (QC): 5 Lying-Sitting on Side/Bed(QC): 5 Sit to Stand (QC): 5 Chair/Tbe-js-Okajs Xfer(QC): 5 Toilet Transfer (QC): 5 Does the Patient Walk: Yes Walk 10 feet (QC): 5 Walk 50ft with 2 Turns (QC): 5 Walk 150 ft (QC): 5 PT Plan Problem List Problem List: Activity Tolerance, Functional Strength, Gait, Transfer, Bed Mobi cheng Treatment/Plan Treatment Plan: Continue Plan of Care Treatment Plan: Bed Mobility, Education, Functional Activity Liliana, Functional Strength, Gait, Safety, Therapeutic Exercise, Transfers Treatment Duration: Oct 26, 2019 Frequency: 6 times per week Estimated Hrs Per Day: .25 hour per day Patient and/or Family Agrees t: Yes Time/GCodes Time In: 921 Time Out: 930 Total Billed Treatment Time: 9 Total Billed Treatment 1 visit EVLow 9 min DECLAN MCCORMICK PT Oct 14, 2019 10:17
--- NOTE | 2019-10-14 10:38 | Discharge Inst-Skilled Nursing ---
Discharge Inst-Skilled NF Reconcile Patient Problems Problems Reviewed?: Yes Consult/Follow Up/Orders Follow Up Appt.: next shelter rounds Skilled NF Admit to: [facility] Certification (SNF) I certify that SNF services are required to be given on an inpatient basis because of the above named patient's need for fpc care on a continuing basis for the conditions(s) for which he/she was receiving inpatient hospital services prior to his/her transfer to the SNF. Custodial Facility Order: Nursing Services, Supervisor Belt And Link Assembly-Evaluate & Treat, Physical Therapy-Evaluate & Treat Oxygen Delivery Method: Nasal Cannula Discharge Diet: No Restrictions Daily Activity as Tolerated: Yes Resuscitation Status: Full Code New & Resume Previous Orders Dolores Timmnos Oct 14, 2019 10:37 DOLORES TIMMONS MD Oct 14, 2019 10:38
[2019-10-14 12:00] VITALS: BP 112/58
--- NOTE | 2019-10-14 12:36 | Discharge Summary ---
Discharge Summary Hospital Course Problems/Dx: (1) Weakness generalized Status: Acute Hospital Course Date of Admission: Oct 12, 2019 at 17:20 Admission Diagnosis : Weakness Family Physician/Provider: Titi Kelly MD Date of Discharge: 10/14/19 Discharge Diagnosis: Debility Hospital Course: Dilcia Gordillo is an 84-year-old female who presented from [facility] with weakness. Her workup was unrevealing for a specific cause of her weakness. She appeared to be debilitated. She was started on physical and occupational therapies while inpatient. She should continue PT/OT at [facility]. Labs and Pending Lab Test: Laboratory Tests 10/14/19 04:21: White Blood Count 3.3L, Red Blood Count 3.10L, Hemoglobin 8.9L, Hematocrit 31L, Mean Corpuscular Volume 98, Mean Corpuscular Hemoglobin 29, Mean Corpuscular Hemoglobin Concent 29L, Red Cell Distribution Width 15.6H, Platelet Count 75L, Mean Platelet Volume 11.7H, Neutrophils (%) (Auto) 43, Lymphocytes (%) (Auto) 46H, Monocytes (%) (Auto) 7, Eosinophils (%) (Auto) 4, Basophils (%) (Auto) 0, Neutrophils # (Auto) 1.4L, Lymphocytes # (Auto) 1.5, Monocytes # (Auto) 0.2, Eosinophils # (Auto) 0.1, Basophils # (Auto) 0.0, Sodium Level 142, Potassium Level 4.9, Chloride Level 107, Carbon Dioxide Level 29, Anion Gap 6, Blood Urea Nitrogen 20H, Creatinine 0.84, Estimat Glomerular Filtration Rate > 60, BUN/Creatinine Ratio 24, Glucose Level 81, Calcium Level 7.8L, Corrected Calcium 9.1, Total Bilirubin 0.4, Aspartate Amino Transf (AST/SGOT) 19, Alanine Aminotransferase (ALT/SGPT) 11, Alkaline Phosphatase 98, Total Protein 4.9L, Albumin 2.4L Home Meds Active Reported Morphine Sulfate ER (Morphine Sulfate) 30 Mg Tablet.er 30 Mg PO BID 7 Days Gabapentin 600 Mg Tablet 600 Mg PO TID Proctosol-Hc (Hydrocortisone) 28.35 Gm Cream.appl 1 Applic RC QID Biotene Moisturizing Mouth (Saliva Stimulant Agents Comb.3) 1 Each Cory[place] 1 [place] BID Ferrous Sulfate 325 Mg Tablet 325 Mg PO DAILY Tylenol (Acetaminophen) 325 Mg Tablet 650 Mg PO Q4H PRN TAKES 2 (325MG) TABLETS Ondansetron HCl 8 Mg Tablet 8 Mg PO Q8H PRN Movantik (Naloxegol Oxalate) 25 Mg Tablet 25 Mg PO DAILY Calcium 600 + Vit D3 Tablet (Calcium Carbonate/Vitamin D3) 1 Each Tablet 1 Tab PO BID Pantoprazole Sodium 40 Mg Tablet.dr 40 Mg PO 0600 Vitamin D3 (Cholecalciferol (Vitamin D3)) 5,000 Unit Capsule 5,000 Units PO DAILY Miralax (Polyethylene Glycol 3350) 17 Gm Powd.pack 17 Gm PO DAILY PRN Artificial Tears Drops (Polyvinyl Alcohol/Povidone) 15 Ml Drops 1 Drop OS BID Sucralfate 1 Gm Tablet 1 Gm PO TIDAC Proctosol-Hc (Hydrocortisone) 28.35 Gm Cream.appl TOP QID PRN Fluoxetine HCl 20 Mg Capsule 20 Mg PO DAILY Lotemax (Loteprednol Etabonate) 5 Gm Drops.gel 1 Drop OD DAILY Voltaren (Diclofenac Sodium) 100 Gm Gel..gram. 1 Gm TP Q4H PRN WRISTS/KNEES Toviaz (Fesoterodine Fumarate) 8 Mg Tab.er.24h 8 Mg PO HS Montelukast Sodium 10 Mg Tablet 10 Mg PO HS Assessment/Pt Instructions Take medications as prescribed. Participate in therapies. Return with worsening weakness, intractable pain, or if you feel like you're getting worse. Discharge Planning: <30 minutes discharge planning Discharge Instructions Discharge Diet: No Restrictions Activity as Tolerated: Yes Discharge Physical Examination Vital Signs Vital Signs Date Time Temp Pulse Resp B/P (MAP) Pulse Ox O2 Delivery O2 Flow Rate FiO2 10/14/19 12:19 50 10/14/19 08:00 36.6 16 159/83 (108) 99 Nasal Cannula 3.00 General Appearance: No Apparent Distress, WD/WN, Chronically ill HEENT: PERRL/EOMI Respiratory: Lungs Clear, Normal Breath Sounds, No Respiratory Distress Cardiovascular: Regular Rate, Rhythm, No Edema, No Murmur Gastrointestinal: Normal Bowel Sounds, Non Tender, Soft Extremity: Normal Inspection, Non Tender, No Pedal Edema Skin: Normal Color, Warm/Dry Neurologic/Psychiatric: Alert, Oriented x3, Motor Weakness Allergies: Coded Allergies: adhesive tape (Verified Allergy, Mild, RASH, 10/12/18) aspirin (Verified Allergy, Unknown, 10/12/18) meperidine (Verified Allergy, Unknown, 10/12/18) nitrofurantoin (Verified Allergy, Unknown, 10/12/18) Uncoded Allergies: SURGICAL TAPE (Allergy, Unknown, 05/14/07) Discharge Summary Date of Admission Oct 12, 2019 at 17:20 Date of Discharge Discharge Date: Oct 14, 2019 Discharge Time: 12:36 Admission Diagnosis Weakness Discharge Diagnosis Debility (1) Debility Status: Acute (2) Weakness generalized Status: Acute Clinical Quality Measures DVT/VTE Risk/Contraindication: Risk Factor Score Per Nursin RFS Level Per Nursing on Admit: 4+=Very High VARGHESE TIMMONS MD Oct 14, 2019 12:36
--- NOTE | 2019-10-14 13:07 | NUR ---
provided prayer and Communion.
--- NOTE | 2019-10-14 13:11 | Occupational Therapy Eval ---
OT Evaluation-General/PLF Medical Diagnosis Admission Date Oct 12, 2019 at 17:20 Medical Diagnosis: progressive weakness Onset Date: Oct 12, 2019 Therapy Diagnosis Therapy Diagnosis: Weakness Height/Weight Height (Feet): 5 Height (Inches): 0.00 Weight (Pounds): 123 Weight (Ounces): 0.0 Precautions Precautions/Isolations: Fall Prevention, Standard Precautions Weight Bear Status Weight Bearing Restriction: Weight Bearing/Tolerated Referral Physician: Zakiya Referral Reason: Activity Tolerance, Self Care, Evaluation/Treatment, Strengthening/ROM Medical History Pertinent Medical History: Arthritis, COPD, Fractures, GERD, HTN, Renal Insufficiency, Thrombosis Additional Medical History Abdominal surgery, Bowel surgery, Joint replacement, vascular surgery Current History Pt. resides at [facility]. States that she became weaker and began falling. Plans to discharge back. Reviewed History: Yes Social History Home: Intermediate Entry Into Home: Level Entry ADL-Prior Level of Function SCALE: Activities may be completed with or without assistive devices. 1-Yytsluyxhv-dtgznax completes the activity by him/herself with no assistance from a helper. 5-Set-up or Clean-up Assistance-helper sets up or cleans up; patient completes activity. Huffman assists only prior to or following the activity. 4-Supervision or Touching Assistance-helper provides verbal cues and/or touching/steadying and/or contact guard assistance as patient completes activity. Assistance may be provided throughout the activity or intermittently. 3-Partial/Moderate Assistance-helper does LESS THAN HALF the effort. Huffman lifts, holds or supports trunk or limbs, but provides less than half the effort. 2-Substantial/Maximal Assistance-helper does MORE THAN HALF the effort. Huffman lifts or holds trunk or limbs and provides more than half the effort. 9-Uhkpywulc-fbhehg does ALL the effort. Patient does none of the effort to complete the activity. Or, the assistance of 2 or more helpers is required for the patient to complete the activity. If activity was not attempted, code reason: 7-Patient Refused. 9-Not Applicable-not attempted and the patient did not perform the activity before the current illness, exacerbation or injury. 10-Not Attempted due to Environmental Limitations-(lack of equipment, weather restraints, etc.). 88-Not Attempted due to Medical Conditions or Safety Concerns. ADL PLOF Comments Pt. states that originally, she was able to complete ADLs at [facility] on her own. Now she receives assistance. Pt. uses walker to ambulate. Self Care: Needed Some Help Functional Cognition: Unknown Drive Self: No OT Current Status Subjective No pain reported. Appearance Pt. sitting up in chair. Agrees to work with OT. Mental Status/Objective Patient Orientation: Person, Place Attachments: IV, Telemetry Current Hand Dominance: Right Upper Extremity ROM WFL Upper Extremity Strength Pt. demonstrates approximately 3/5 bilateral UE strength. ADL-Treatment On/Off Footwear (QC): 4 (SBA) Pt. able to doff/don slipper socks while seated with no difficulty. Stands at chair side with SBA and walker. Able to stand approximately 2 minutes with no loss of balance. Pt. brushed hair with no difficulty. Pt. reports that she feels weak overall. OT gave her hand therapy sponge, yellow theraband to increase overall strength and endurance. Educated on exercises but pt. reports that she does know how to use them already from previous therapy sessions. Pt. reports that she likes word finds. OT brought in multiple word search pages and writing device to assist with this. All needs met. Education OT Patient Education: Correct positioning, Exercise program, Modified ADL techniques, Progress toward Goal/Update tx plan, Purpose of tx/functional activities, Reviewed precautions, Rehab process, Transfer techniques Teaching Recipient: Patient Teaching Methods: Demonstration, Discussion Response to Teaching: Return Demonstration OT Product Development Manager Goals Jail Goals Time Frame: Oct 21, 2019 Eating (QC): 6 Oral Hygiene (QC): 5 Toileting Hygiene (QC): 6 Shower/Bathe Self (QC): 4 Upper Body Dressing (QC): 4 Lower Body Dressing (QC): 4 On/Off Footwear (QC): 5 Additional Goals: 1-Demonstrate ADL Tasks, 2-Verbalize Understanding, 3- ImproveStrength/Liliana 1=Demonstrate adherence to instructed precautions during ADL tasks. 2=Patient will verbalize/demonstrate understanding of assistive devices/modifications for ADL. 3=Patient will improve strength/tolerance for activity to enable patient to perform ADL's. OT Education/Plan Problem List/Assessment Assessment: Decreased Activ Tolerance, Decreased UE Strength, Impaired I ADL's, Impaired Self-Care Skills, Restricted Funct UE ROM Discharge Recommendations Plan/Recommendations: Continue POC Therapy Discharge Recommendati: 24 Hour Supervision Treatment Plan/Plan of Care Treatment,Training & Education: Yes Patient would benefit from OT for education, treatment and training to promote independence in ADL's, mobility, safety and/or upper extremity function for ADL's. Plan of Care: ADL Retraining, Functional Mobility, UE Funct Exercise/Act Treatment Duration: Oct 21, 2019 Frequency: 5 times per week Estimated Hrs Per Day: .25 hour per day Agreement: Yes Rehab Potential: Fair Time/GCodes Start Time: 10:00 Stop Time: 10:10 Total Time Billed (hr/min): 10 Billed Treatment Time 7301-5647 1, EVM x 10minutes 1045 1, visit- OT brought pages and UE strengthening devices into room. NAVIN MEJIA OT Oct 14, 2019 13:11
--- NOTE | 2019-10-14 14:00 | NUR ---
PATIENT IS 95% ON ROOM AIR.
--- NOTE | 2019-10-14 14:43 | NUR ---
CM FINALIZED DISCHARGE PLAN: Patient will be returning to [facility] on residential care. Dr. Carmona has ordered for Physical et Occupational therapies through the patient's Medicare Part B. She will NOT be skilled. This has been communicated with alumni relations coordinator Denise at [facility]. Finalized discharge orders faxed to [facility] et red discharge packet has been made for patient to take with her back to the facility. broommaking supervisor time has been set for 3:15p.m. No further interventions noted.
--- NOTE | 2019-10-14 14:57 | NUR ---
"RD ASSESSMENT PMHx: HTN; DVT; GERD; hiatal hernia PT INTERACTION: Pt was awake and pleasant during nutrition assessment. Pt states current appetite is fair and has been for some time. Note avg PO intake of 50% x1d, per chart review. Pt states following a regular diet at home, and has some issues with chewing food as she has no teeth. Pt states inability to afford dentures, and has difficulty with some foods like lettuce and crunchy foods. Pt states no recent issues with n/v/c/d at this time. Note last BM was 10/13 and pt currently on bowel regimen of miralax PRN, per chart review. Pt states no recent wt changes. Note unable to determine recent wt hx, per chart review. ABNORMAL NUTRITION-RELATED LAB VALUES LOW: Ca 7.8; Pro 4.9; alb 2.6 HIGH: BUN 20 Est. kcal needs: 9445-1206 kcal | 25-30 kcal/kg Est. Pro needs: 53-66 g Pro | 0.8-1.0 g Pro/kg PES STATEMENT: Inadequate oral intake (NI-2.1) related to loss of appetite | difficulty chewing as evidenced by pt interview | avg PO intake of 50% x1d INTERVENTION: Continue with current diet order of Regular diet. Add Ensure Enlive (vary) to meals TID, for increased kcal intake. Provides 350 kcal and 13 g Pro per serving. Will continue to follow and reassess as pt needs and status change. MONITOR/EVALUATE: PO Intake; Plan of Care; Hydration Status; Weight Status; Lab Values Hafsa Weeks, MS, RD, LD"
--- NOTE | 2019-10-14 15:10 | NUR ---
REPORT CALLED TO RUBIO AT [facility].
[2019-10-14 15:23] VITALS: BP 112/58
[2019-10-14] MEDS ORDERED: TOLTERODINE LA 4 MG (DETROL) CAP PO SCH (21:00)
== END 2019-10-14 15:27 ==
LOC: EDUNIT# 14:27 → ER 14:28 → 4TH 17:20
PROVIDERS: ADMIT Family Medicine; ATTEND Internal Medicine
DX: R53.1 Weakness (principal); R53.81 Other malaise; I10 Essential (primary) hypertension; I82.409 Acute embolism and thrombosis of unspecified deep veins of unspecified lower extremity; N39.0 Urinary tract infection, site not specified; K21.9 Gastro-esophageal reflux disease without esophagitis; M19.90 Unspecified osteoarthritis, unspecified site; M81.0 Age-related osteoporosis without current pathological fracture; G47.9 Sleep disorder, unspecified; F41.9 Anxiety disorder, unspecified; F32.9 Major depressive disorder, single episode, unspecified; Z88.6 Allergy status to analgesic agent; Z88.8 Allergy status to other drugs, medicaments and biological substances; Z91.048 Other nonmedicinal substance allergy status; Z79.899 Other long term (current) drug therapy; Z82.49 Family history of ischemic heart disease and other diseases of the circulatory system; Z83.3 Family history of diabetes mellitus; Z80.9 Family history of malignant neoplasm, unspecified
CPT/HCPCS: 36415; 71045; 80053; 81000; 83690; 84484; 85007; 85025; 85027; 93005; 96360; 96361; G0378

== ENCOUNTER → 2019-10-12 | Outpatient (CLI) | payer MEDICARE, OTHER ==
[2019-10-12 10:37] LABS: BILIRUBIN,URINE NEGATIVE (NEGATIVE); CLARITY,URINE CLEAR; COLOR,URINE YELLOW; GLUCOSE, URINE (UA) NEGATIVE (NEGATIVE); KETONES,URINE NEGATIVE (NEGATIVE); LEUKOCYTE ESTERASE ,URINE TRACE (NEGATIVE); NITRITE,URINE NEGATIVE (NEGATIVE); PROTEIN,URINE NEGATIVE (NEGATIVE)
[2019-10-12 11:05] LABS: BACTERIA,URINE NEGATIVE /HPF; WBC,URINE 0-2 /HPF
== END ==
LOC: LABNPT 10:31
DX: S72.091D Other fracture of head and neck of right femur, subsequent encounter for closed fracture with routine healing (principal); J44.9 Chronic obstructive pulmonary disease, unspecified; M19.91 Primary osteoarthritis, unspecified site; N19 Unspecified kidney failure; M62.81 Muscle weakness (generalized); R26.89 Other abnormalities of gait and mobility; I10 Essential (primary) hypertension; I82.512 Chronic embolism and thrombosis of left femoral vein; K44.9 Diaphragmatic hernia without obstruction or gangrene; F41.9 Anxiety disorder, unspecified; F32.9 Major depressive disorder, single episode, unspecified; D69.6 Thrombocytopenia, unspecified; H40.9 Unspecified glaucoma; H91.93 Unspecified hearing loss, bilateral; N39.41 Urge incontinence; G47.9 Sleep disorder, unspecified; K25.4 Chronic or unspecified gastric ulcer with hemorrhage; I49.9 Cardiac arrhythmia, unspecified; K21.9 Gastro-esophageal reflux disease without esophagitis; M81.0 Age-related osteoporosis without current pathological fracture; Z47.89 Encounter for other orthopedic aftercare; Z91.81 History of falling; Z87.19 Personal history of other diseases of the digestive system; Z96.653 Presence of artificial knee joint, bilateral; Z99.81 Dependence on supplemental oxygen; Z79.01 Long term (current) use of anticoagulants; Z96.642 Presence of left artificial hip joint
CPT/HCPCS: 81000

== ENCOUNTER 2019-11-12 13:08 | Outpatient (RCR) | payer MEDICARE, OTHER ==
[~2019-11-12 13:08] MED LIST changes: -FLUO20CA25 PO; +FLUO20CA46 PO; -HYDR-3816 PO; +HYDR28.341 RC; -MELA3TAB PO; +MELA3TAB39 PO; -MONT10TA24 PO; +MONT10TA26 PO; -MORP-34 PO; +MORP-69 PO; -MORP60TA52 PO; +MORP60TA69 PO; +OMEP40CA27 PO; -OMEP40CA36 PO; -ONDA8TAB12 PO; +ONDA8TAB15 PO; +SALI45SP MT
[2019-11-12 13:27] LABS: BASOPHILS % (AUTO) 0 % (0-10); EOSINOPHILS # (AUTO) 0.7 10^3/uL (0.0-0.3); EOSINOPHILS % (AUTO) 14 % (0-10); HEMATOCRIT 39 % (35-52); HEMOGLOBIN 11.3 G/DL (11.5-16.0); LYMPHOCYTES # (AUTO) 1.4 X 10^3 (1.0-4.0); LYMPHOCYTES % (AUTO) 28 % (12-44); MEAN CORPUSCULAR HEMOGLOBIN 29 PG (25-34); MEAN CORPUSCULAR HGB CONC 29 G/DL (32-36); MEAN CORPUSCULAR VOLUME 99 FL (80-99); MEAN PLATELET VOLUME 11.5 FL (7.4-10.4); MONOCYTES # (AUTO) 0.3 X 10^3 (0.0-1.0); MONOCYTES % (AUTO) 6 % (0-12); NEUTROPHILS # (AUTO) 2.5 X 10^3 (1.8-7.8); NEUTROPHILS % (AUTO) 51 % (42-75); PLATELET COUNT 80 10^3/uL (130-400); RED CELL DISTRIBUTION WIDTH 16.7 % (10.0-14.5)
[2019-11-12 13:47] LABS: ALBUMIN 3.3 GM/DL (3.2-4.5); BILIRUBIN,TOTAL 0.3 MG/DL (0.1-1.0); CALCIUM 8.9 MG/DL (8.5-10.1); CREATININE SERUM 1.41 MG/DL (0.60-1.30); POTASSIUM 4.4 MMOL/L (3.6-5.0); TOTAL PROTEIN 6.2 GM/DL (6.4-8.2)
[2019-12-09] MEDS ORDERED: MELO7.5T46 PO (12:37)
[2019-12-09] MEDS ORDERED: GBPN600T PO (12:37)
[2019-12-09] MEDS ORDERED: GABA800T10 PO (12:37)
[2019-12-09] MEDS ORDERED: PROM25TA14 PO (12:37)
[2019-12-09] MEDS ORDERED: OXYC-465 PO (12:37)
== END 2020-02-10 | disposition home or self-care (01) ==
LOC: ONC 13:08
PROVIDERS: ATTEND Internal Medicine Hematology & Oncology
DX: D69.49 Other primary thrombocytopenia (principal); E03.8 Other specified hypothyroidism; E66.9 Obesity, unspecified; K59.03 Drug induced constipation; T40.605A Adverse effect of unspecified narcotics, initial encounter; N18.9 Chronic kidney disease, unspecified; M81.0 Age-related osteoporosis without current pathological fracture; M19.90 Unspecified osteoarthritis, unspecified site; R00.1 Bradycardia, unspecified; Z80.9 Family history of malignant neoplasm, unspecified; Z98.890 Other specified postprocedural states; Z90.49 Acquired absence of other specified parts of digestive tract; Z90.710 Acquired absence of both cervix and uterus; Z90.89 Acquired absence of other organs; Z96.642 Presence of left artificial hip joint; Z96.653 Presence of artificial knee joint, bilateral; Z86.2 Personal history of diseases of the blood and blood-forming organs and certain disorders involving the immune mechanism
CPT/HCPCS: 80053; 85025; 99213

== ENCOUNTER → 2019-11-26 | Outpatient (CLI) | payer MEDICARE, OTHER ==
[~2019-11-26] MED LIST changes: +FLUO20CA45 PO; -FLUO20CA46 PO; +HYDR-3816 PO; -MELA3TAB39 PO; +MELA3TAB65 PO; +MONT10TA24 PO; -MONT10TA26 PO; +ONDA8TAB12 PO; -ONDA8TAB15 PO
--- NOTE | 2019-11-26 17:28 | Diagnostic Imaging Report ---
INDICATION: Edema. AP and lateral views of the left tibia and fibula are performed. There is a left knee prosthesis in place. There appears be an acute fracture of the proximal tibia anteriorly, best seen on the lateral view. There is an old fracture deformity of the lateral aspect of the proximal tibia. The fibula appears intact. The mid and distal shaft of the tibia are intact. IMPRESSION: Left knee prosthesis in place. There is an old fracture of the lateral tibial plateau which appears healed. There is a new fracture of the proximal tibia anteriorly, best seen on the lateral view, with about a centimeter of separation of the fracture fragments. This fracture was not seen on 11/04/2018. Dictated by: Dictated on workstation # [id number]
--- NOTE | 2019-11-26 17:28 | Diagnostic Imaging Report ---
Indication: Left leg swelling AP and lateral views of the left knee show postsurgical changes from joint arthroplasty with long intramedullary melisa in the femur and with screws and bands across the distal femoral shaft. There appears be a fracture through the medial cortex of the tibia at the tip of the stem.. This extends through the anterior tibial cortex as well. IMPRESSION: There appears be an acute fracture of the proximal tibia at the tip of the prosthetic stem. There is a soft tissue density masslike lesion measuring 6 cm in diameter adjacent to the fracture line that is probably a hematoma. Dictated by: Dictated on workstation # [id number]
--- NOTE | 2019-11-26 17:36 | Diagnostic Imaging Report ---
INDICATION: Localized edema. COMPARISON: October 10, 2019. TECHNIQUE: Four radiographs of the left hip and femur dated November 26, 2019. FINDINGS: Left hip arthroplasty is again identified without evidence of hardware complication. Left knee arthroplasty is again identified. The long stem femoral component is identified transfixing a chronic fracture deformity. No evidence of hardware complication. Punctate radiopaque densities are noted overlying the proximal left thigh, appearing to relate to artifact from overlying material. Chronic appearing deformity of the left superior and inferior pubic rami medially. No acute fracture or dislocation. IMPRESSION: Extensive postsurgical changes associated with left femur and left knee without evidence of hardware complication or acute osseous abnormality. Dictated by: Dictated on workstation # [id number]
== END ==
LOC: RAD 16:37
PROVIDERS: ATTEND Nurse Practitioner Family
DX: M79.605 Pain in left leg (principal); R60.0 Localized edema; M25.552 Pain in left hip; M25.562 Pain in left knee; Z98.890 Other specified postprocedural states
CPT/HCPCS: 73552; 73562; 73590

== ENCOUNTER → 2019-11-28 | Outpatient (CLI) | payer MEDICARE, OTHER ==
--- NOTE | 2019-11-28 15:04 | Diagnostic Imaging Report ---
CLINICAL INDICATION: Patient with history of blood clots. Patient fell two weeks ago and has left leg swelling. COMPARISON: Ultrasound venous Doppler study of the left lower extremity dated 02/14/2007. PROCEDURE: Real-time left lower extremity venous Doppler duplex evaluation is performed from the inguinal region through the popliteal fossa. The calf venous structures are also evaluated. FINDINGS: The deep venous system is well visualized and is easily compressible. There is no evidence of deep venous thrombosis, valvular incompetence, or significant collateral circulation. IMPRESSION: There is no ultrasound Doppler evidence of deep venous thrombosis in the left lower extremity. Dictated by: Dictated on workstation # [id number]
== END ==
LOC: RAD 13:26
PROVIDERS: ATTEND Nurse Practitioner Family
DX: R60.0 Localized edema (principal)

== ENCOUNTER 2019-12-09 11:42 | Outpatient (CLI) | payer MEDICARE, OTHER ==
[~2019-12-09] VITALS: Ht 152.4 cm; Wt 66.5 kg
[~2019-12-09 11:42] MED LIST changes: -FLUO20CA45 PO; +FLUO20CA46 PO; -HYDR-3816 PO; -MONT10TA24 PO; +MONT10TA26 PO; -ONDA8TAB12 PO; +ONDA8TAB15 PO
[2019-12-09] MEDS ORDERED: GBPN600T PO (12:37)
[2019-12-09] MEDS ORDERED: MELO7.5T46 PO (12:37)
[2019-12-09] MEDS ORDERED: OXYC-465 PO (12:37)
[2019-12-09] MEDS ORDERED: GABA800T10 PO (12:37)
[2019-12-09] MEDS ORDERED: PROM25TA14 PO (12:37)
== END 2019-12-09 13:01 | disposition home or self-care (01) ==
LOC: PREOP 11:42
PROVIDERS: ATTEND Orthopaedic Surgery
DX: Z01.818 Encounter for other preprocedural examination (principal)

== ENCOUNTER 2019-12-11 09:39 | Day surgery (SDC) | payer MEDICARE, OTHER ==
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
[~2019-12-11] VITALS: Ht 152.6 cm; Wt 66.5 kg
[2019-12-11] VITALS (12 sets, daily range): BP systolic 90–116; BP diastolic 51–76
[~2019-12-11 09:39] MED LIST changes: +HYDROcodone/APAP 7.5 MG/325 MG (LORTAB, LORCET PLUS) TABLET PO PRN; +MELO7.5T46 PO; +PROM25TA14 PO
[2019-12-11] MEDS ORDERED: ceFAZolin INJECTION 1,000 MG in WATER (STERILE) FOR INJECTION 10 ML IV ONE (10:15)
[2019-12-11] MEDS ORDERED: ceFAZolin INJECTION 1,000 MG ONE (10:18)
[2019-12-11] MEDS ORDERED: WATER (STERILE) FOR INJECTION 10 ML ONE (10:18)
[2019-12-11 10:42] LABS: BASOPHILS % (AUTO) 0 % (0-10); EOSINOPHILS # (AUTO) 0.3 10^3/uL (0.0-0.3); EOSINOPHILS % (AUTO) 10 % (0-10); HEMATOCRIT 31 % (35-52); HEMOGLOBIN 8.9 G/DL (11.5-16.0); LYMPHOCYTES % (AUTO) 39 % (12-44); MEAN CORPUSCULAR HEMOGLOBIN 29 PG (25-34); MEAN CORPUSCULAR HGB CONC 29 G/DL (32-36); MEAN CORPUSCULAR VOLUME 103 FL (80-99); MEAN PLATELET VOLUME 11.5 FL (7.4-10.4); MONOCYTES # (AUTO) 0.3 X 10^3 (0.0-1.0); MONOCYTES % (AUTO) 10 % (0-12); NEUTROPHILS # (AUTO) 1.1 X 10^3 (1.8-7.8); NEUTROPHILS % (AUTO) 41 % (42-75); PLATELET COUNT 93 10^3/uL (130-400); WHITE BLOOD COUNT 2.7 10^3/uL (4.3-11.0)
[2019-12-11] MEDS ORDERED: FAMOTIDINE 20MG/2ML IV (PEPCID) ONE (10:53)
[2019-12-11] MEDS: LACTATED RINGERS 1,000 ML IV PRN ×2 (10:59→13:21)
[2019-12-11] MEDS ORDERED: FAMOTIDINE 20MG/2ML IV (PEPCID) IV ONE (11:00)
--- NOTE | 2019-12-11 11:17 | Progress Note-Pre Operative ---
Pre-Operative Progress Note H&P Reviewed The H&P was reviewed, patient examined and no changes noted. Date Seen by Provider: Dec 11, 2019 Time Seen by Provider: 11:16 Date H&P Reviewed: Dec 11, 2019 Time H&P Reviewed: 11:16 Pre-Operative Diagnosis: left tibia tubercle fracture PERRY DIEHL MD Dec 11, 2019 11:16
--- NOTE | 2019-12-11 11:18 | Progress Note-Post Operative ---
Post-Operative Progess Note Surgeon (s)/Assistant Corporate Secretary (s) Surgeon PERRY DIEHL MD Assistant Corporate Secretary: kristi Rangel Pre-Operative Diagnosis left tibia tubercle fracture Post-Operative Diagnosis left tibia tubercle fracture with patella tendon disruption Procedure & Operative Findings Date of Procedure 12/11/19 Procedure Performed/Findings left patella tendon repair Anesthesia Type GETA Estimated Blood Loss Estimated blood loss (mL): minimal Specimens/Packing Specimens Removed none Packing: none PERRY DIEHL MD Dec 11, 2019 11:18
[2019-12-11] MEDS ORDERED: ONDANSETRON 4 MG/2 ML (SDV) Z0FRAN ONE ×2 (11:34→13:45)
[2019-12-11] MEDS ORDERED: LIDOCAINE PF 2% 5 ML (XYLOCAINE) VIAL ONE (11:34)
[2019-12-11] MEDS ORDERED: proPOfol 200 MG/20 ML (DIPRIVAN) VIAL IV ONE (11:34)
[2019-12-11] MEDS ORDERED: SEVOFLURANE (ULTANE) 15 ML INHAL SOLN ONE ×3 (11:34→13:20)
[2019-12-11] MEDS ORDERED: fentaNYL INJECTION 100 MCG/2 ML AMP ONE (11:34)
[2019-12-11] MEDS ORDERED: DEXAMETHASONE 10 MG/ML (DECADRON) 1 ML VIAL ONE (11:34)
[2019-12-11] MEDS ORDERED: MIDAZOLAM 2 MG/2 ML (VERSED) VIAL ONE (11:34)
[2019-12-11] MEDS ORDERED: BUPIVACAINE 0.5% 30 ML (SENSORCAINE) VIAL ONE (11:34)
[2019-12-11] MEDS ORDERED: BUPIVACAINE 0.25% 30 ML (SENSORCAINE) VIAL ONE (12:04)
[2019-12-11] MEDS ORDERED: ONDANSETRON 4 MG/2 ML (SDV) Z0FRAN IVP PRN (13:45)
[2019-12-11] MEDS ORDERED: morphine INJ 10 MG/ML 1ML (SYR OR VIAL) IVP ONE (13:45)
--- NOTE | 2019-12-11 15:14 | Physical Therapy Ortho Eval ---
PT Orthopedic Evaluation Type of Surgery ORIF left tibial tubercle Prior Level of Function Current Living Status: [facility] Subjective Subjective Patient in bed pre tx, agrees to PT, has 4-5/10 pain in left knee. Has left knee immobilizer. Patient is NWB on left leg. Transfer Transfers (B, C, W/C) (FIM): 3 Patient performs stand pivot transfers with min assist. Patient has to use the restroom during treatment, has a BM, is able to wipe herself but needs min assist for toilet transfer. Gait Gait Assistive Device: FWW Distance: 1' Summary/Comments Patient is not able to take steps. She can scoot her right foot across the floor and seems to be able to maintain her NWB on left leg but cannot take steps to ambulate at this point. Treatment Rendered Treatment: Therapeutic Exercises, Gait Train (and transfers) Exercise Instruction: Ankle Pumps Assessment/Goals Goal Time Frame: 1 Visit Understands HEP: Yes Safe Ambulation: No Plan Treatment Plan: Discharge PT/Family Agrees to Plan: Yes Time Time In: 1446 Time Out: 1503 Total Billed Treatment Time: 17 Billed Treatment Time 1 visit ARAMIS 17' GILDA PADILLA PT Dec 11, 2019 15:14
--- NOTE | 2019-12-11 19:42 | OPERATIVE REPORT ---
DATE OF SERVICE: 12/11/2019 PREOPERATIVE DIAGNOSIS: Left tibial tubercle fracture with patella tendon disruption. POSTOPERATIVE DIAGNOSIS: Left tibial tubercle fracture with patella tendon disruption. PROCEDURE: Left patellar tendon repair. SURGEON: Buzz Esquivel MD MARGIN ANALYST: Bill Rangel, who assisted throughout the procedure and closed the incision. ANESTHESIA: General endotracheal by Brenden Irving CRNA. TOURNIQUET TIME: 25 minutes at 300 mmHg. ESTIMATED BLOOD LOSS: Minimal. DRAINS: None. COMPLICATIONS: None. POSTOPERATIVE PLAN: Nonweightbearing with brace wear for 6 weeks. The patient was transferred to the recovery room awake and stable condition. STATEMENT OF MEDICAL NECESSITY: The patient is an 84-year-old female who previously underwent a left total knee arthroplasty by Dr. Healy. She presented to our office approximately 4 weeks status post injury, which revealed a tibial tubercle disruption. The patient was counseled regarding treatment options and elected to proceed with attempt at repair, understanding that she may require revision. She also understood that I did not do revision arthroplasties and she would need to be referred if she continues to have symptomatology. DESCRIPTION OF PROCEDURE: After risks and benefits of procedure were discussed and questions were answered, informed consent was signed and placed on chart. The operative site was confirmed in the preoperative holding area initialed by the surgeon. The patient was then transferred to the operating room. After adequate levels of general endotracheal anesthetic were obtained, a timeout was called, confirming the operative site. Examination under anesthesia revealed a 1+ valgus laxity, recurvatum noted at the knee, 1+ varus laxity. Negative anterior and posterior drawer. The left lower extremity was then prepped and draped in the usual sterile fashion. With the leg elevated, tourniquet inflated to 300 mmHg. Previous incision was utilized on the distal extent and extended distally. The underlying soft tissues were carefully dissected. The patellar tendon insertion was found to be detached. Her bone quality was extremely poor. Therefore, it was elected to perform a soft tissue repair to try to repair her extensor mechanism using a [id number] repair. A FiberTape was used. This was passed through the bony tunnel just distal to the tibial tubercle and this was repaired in [id number] fashion with excellent repair obtained. The knee was flexed and the repair was found to be stable. There was bony disruption noted medially. The tourniquet was deflated. Pressure was used for hemostasis. Wound was copiously irrigated, 2-0 Vicryl was used to reapproximate subcutaneous tissue and skin was closed with alex. A soft dressing and brace were applied. The patient was transferred to the recovery room awake and in stable condition. Job ID: [id number] DocumentID: [id number] Dictated Date: 12/11/2019 13:24:13 Dog Behaviorist Date: 12/11/2019 19:42:13 Dictated By: BUZZ ESQUIVEL MD
--- NOTE | 2019-12-12 10:32 | Anesthesia-General Post-Op ---
General Significant Intra-Op Events Notes Late entry. 12/11/2019 1350 Patient Condition Mental Status/LOC: Same as Preop Cardiovascular: Satisfactory Nausea/Vomiting: Absent Respiratory: Satisfactory Pain: Controlled Complications: Absent Post Op Complications Complications None Follow Up Care/Instructions Patient Instructions None needed. Anesthesia/Patient Condition Patient Condition Patient is doing well, no complaints, stable vital signs, no apparent adverse anesthesia problems. No complications reported per nursing. LICO DOE TACK COVERER Dec 12, 2019 10:32
== END 2019-12-11 15:45 | disposition home or self-care (01) ==
LOC: SDC 09:39
PROVIDERS: ATTEND Orthopaedic Surgery
DX: S83.8X2A Sprain of other specified parts of left knee, initial encounter (principal); S82.152A Displaced fracture of left tibial tuberosity, initial encounter for closed fracture; I10 Essential (primary) hypertension; K21.9 Gastro-esophageal reflux disease without esophagitis; M81.0 Age-related osteoporosis without current pathological fracture; F32.9 Major depressive disorder, single episode, unspecified; Z90.710 Acquired absence of both cervix and uterus; Z79.899 Other long term (current) drug therapy
CPT/HCPCS: 36415; 85025; 87081

== ENCOUNTER → 2020-02-06 | Outpatient (CLI) | payer MEDICARE, OTHER ==
[~2020-02-06] MED LIST changes: -HYDROcodone/APAP 7.5 MG/325 MG (LORTAB, LORCET PLUS) TABLET PO PRN; +MELA3TAB39 PO; -MELA3TAB65 PO
== END ==
LOC: LABNPT 17:14
DX: R07.0 Pain in throat (principal)
CPT/HCPCS: 87430

== ENCOUNTER → 2020-07-16 | Outpatient (CLI) | payer MEDICARE, OTHER ==
[~2020-07-16] MED LIST changes: +CALC-664 PO; -CALC1TAB94 PO; +OXYC-556 PO; -PANT40TA3 PO; +PANT40TA52 PO
[2020-07-16 09:18] LABS: BASOPHILS % (AUTO) 0 % (0-10); EOSINOPHILS # (AUTO) 0.4 10^3/uL (0.0-0.3); EOSINOPHILS % (AUTO) 5 % (0-10); HEMATOCRIT 39 % (35-52); HEMOGLOBIN 11.3 g/dL (11.5-16.0); LYMPHOCYTES # (AUTO) 2.2 10^3/uL (1.0-4.0); LYMPHOCYTES % (AUTO) 31 % (12-44); MEAN CORPUSCULAR HEMOGLOBIN 30 pg (25-34); MEAN CORPUSCULAR HGB CONC 29 g/dL (32-36); MEAN CORPUSCULAR VOLUME 103 fL (80-99); MONOCYTES # (AUTO) 0.4 10^3/uL (0.0-1.0); MONOCYTES % (AUTO) 5 % (0-12); NEUTROPHILS # (AUTO) 4.2 10^3/uL (1.8-7.8); NEUTROPHILS % (AUTO) 58 % (42-75); PLATELET COUNT 92 10^3/uL (130-400); WHITE BLOOD COUNT 7.2 10^3/uL (4.3-11.0)
[2020-07-16 09:45] LABS: ALBUMIN 2.9 GM/DL (3.2-4.5); BILIRUBIN,TOTAL 0.5 MG/DL (0.1-1.0); CALCIUM 8.6 MG/DL (8.5-10.1); CREATININE SERUM 2.47 MG/DL (0.60-1.30); POTASSIUM 4.9 MMOL/L (3.6-5.0); TOTAL PROTEIN 6.3 GM/DL (6.4-8.2)
== END ==
LOC: EDSTATUS 02-11 08:44 → ONC 09:03
PROVIDERS: ATTEND Internal Medicine Hematology & Oncology
DX: D69.49 Other primary thrombocytopenia (principal); M81.0 Age-related osteoporosis without current pathological fracture; E03.9 Hypothyroidism, unspecified; M13.89 Other specified arthritis, multiple sites; J44.9 Chronic obstructive pulmonary disease, unspecified; I25.10 Atherosclerotic heart disease of native coronary artery without angina pectoris; K21.9 Gastro-esophageal reflux disease without esophagitis; I12.9 Hypertensive chronic kidney disease with stage 1 through stage 4 chronic kidney disease, or unspecified chronic kidney disease; N18.9 Chronic kidney disease, unspecified; Z86.39 Personal history of other endocrine, nutritional and metabolic disease; Z87.19 Personal history of other diseases of the digestive system; Z86.2 Personal history of diseases of the blood and blood-forming organs and certain disorders involving the immune mechanism
CPT/HCPCS: 80053; 85025; G0463; 99213

== ENCOUNTER 2020-08-04 01:07 | Emergency (ER) | payer MEDICARE, OTHER ==
[~2020-08-04] VITALS: Ht 152.4 cm; Wt 60.0 kg
--- NOTE | 2020-08-04 01:56 | ED Lower Extremity ---
General Chief Complaint: Trauma-Non Activation Stated Complaint: FALL Nursing Triage Note: Pt reports discomfort to L knee radiating distally. Describes discomfort as "burning." Nursing Sepsis Screen: No Definite Risk Source: patient Exam Limitations: no limitations History of Present Illness Date Seen by Provider: Aug 04, 2020 Time Seen by Provider: 01:12 Initial Comments Here with complaint of left lower leg pain after fall at the correction. Apparently she went down onto her knees and left leg. She did not fall further and did not hit her head. She hurt her foot a few days ago but has not had pictures of that. That was also on the left side. Denies other injury. Has had history of multiple falls. Occurred at about 11:30 PM. She was apparently walking with a walker with the nurse behind her and fell forward onto her knees and left leg. Location Injury Occurred: [facility] (bathroom) Onset: this evening Severity: moderate Pain/Injury Location: left leg Method of Injury: fell Modifying Factors: Improves With Immobilization; Worse With Movement; Improves With Pain Medication Allergies and Home Medications Allergies Coded Allergies: adhesive tape (Verified Allergy, Mild, RASH, 10/12/18) aspirin (Verified Allergy, Unknown, 10/12/18) meperidine (Verified Allergy, Unknown, 10/12/18) nitrofurantoin (Verified Allergy, Unknown, 10/12/18) Uncoded Allergies: SURGICAL TAPE (Allergy, Unknown, 05/14/07) Home Medications Acetaminophen 325 Mg Tablet, 650 MG PO Q4H PRN for PAIN-MILD (1-4), (Reported) TAKES 2 (325MG) TABLETS Calcium Carbonate/Vitamin D3 1 Each Tablet, 1 TAB PO BID, (Reported) Cholecalciferol (Vitamin D3) 5,000 Unit Capsule, 5,000 UNITS PO DAILY, (Reported) Diclofenac Sodium 100 Gm Gel..gram., 1 GM TP Q4H PRN for JOINT PAIN, (Reported) WRISTS/KNEES Ferrous Sulfate 325 Mg Tablet, 325 MG PO DAILY, (Reported) Fesoterodine Fumarate 8 Mg Tab.er.24h, 8 MG PO HS, (Reported) Fluoxetine HCl 20 Mg Capsule, 20 MG PO DAILY, (Reported) Gabapentin 800 Mg Tablet, 800 MG PO HS, (Reported) Gabapentin 600 Mg Tablet, 600 MG PO BID, (Reported) Hydrocortisone 28.35 Gm Cream.appl, TOP QID PRN for HEMORRHOIDS, (Reported) Loteprednol Etabonate 5 Gm Drops.gel, 1 DROP OD DAILY, (Reported) Meloxicam 7.5 Mg Tablet, 7.5 MG PO DAILY, (Reported) Montelukast Sodium 10 Mg Tablet, 10 MG PO HS, (Reported) Morphine Sulfate 30 Mg Tablet.er, 30 MG PO BID, (Reported) Naloxegol Oxalate 25 Mg Tablet, 25 MG PO DAILY, (Reported) Pantoprazole Sodium 40 Mg Tablet.dr, 40 MG PO 0600, (Reported) Polyethylene Glycol 3350 17 Gm Powd.pack, 17 GM PO DAILY PRN for CONSTIPATION- 2ND LINE, (Reported) Polyvinyl Alcohol/Povidone 15 Ml Drops, 1 DROP OS BID, (Reported) Promethazine HCl 25 Mg Tablet, 25 MG PO Q8H PRN for NAUSEA/VOMITING, (Reported) Saliva Stimulant Agents Comb.3 1 Each [place], 1 SPRAY MT BID, (Reported) Sucralfate 1 Gm Tablet, 1 GM PO TIDAC, (Reported) Patient Home Medication List Home Medication List Reviewed: Yes Review of Systems Constitutional: see HPI; No chills, No fever EENTM: No blurred vision, No vision loss Respiratory: no symptoms reported Cardiovascular: no symptoms reported Gastrointestinal: No abdominal pain, No nausea, No vomiting Genitourinary: no symptoms reported Musculoskeletal: joint pain, joint swelling, muscle pain Skin: change in color; No lesions Psychiatric/Neurological: Denies Headache, Denies Weakness All Other Systems Reviewed Negative Unless Noted: Yes Past Dyygemn-Dyachk-Dvsoiy Hx Past Med/Social Hx: Reviewed Nursing Past Med/Soc Hx Patient Social History Alcohol Use: Denies Use Recreational Drug Use: No Smoking Status: Never a Smoker 2nd Hand Smoke Exposure: No Recent Foreign Travel: No Contact w/Someone Who Travel: No Recent Infectious Disease Expo: No Recent Hopitalizations: No Physical Abuse: No Sexual Abuse: No Immunizations Up To Date Tetanus Booster (TDap): Less than 5yrs PED Vaccines UTD: No Date of Pneumonia Vaccine: Aug 31, 2017 Date of Influenza Vaccine: Jul 09, 2019 Seasonal Allergies Seasonal Allergies: No Past Medical History Surgeries: Yes (hiatal hernia, bilat hip sx, L TKR, L femur fx) Abdominal, Bowel Surgery, Gallbladder, Hysterectomy, Joint Replacement, Orthopedic, Vascular Surgery Respiratory: Yes (OXYGEN AT HS) COPD, Emphysema Cardiac: Yes Deep Vein Thrombosis, Hypertension Neurological: No 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 Disorders: No Genitourinary: Yes Renal Failure, UTI-Chronic Gastrointestinal: Yes (COLON RESECTION) Gastroesophageal Reflux, Hiatal Hernia, Ulcer Musculoskeletal: Yes (BILATERAL KNEES AND R HIP REPLACED AND BILATERAL FEMUR FX/ORIF'S ) Osteoporosis, Arthritis, Fractures Endocrine: No HEENT: Yes Glaucoma Hearing Impairment: Hard of Hearing Cancer: No Psychosocial: Yes Sleep Difficulties, Anxiety, Depression Integumentary: No Blood Disorders: Yes Adverse Reaction/Blood Tranf: Yes (Transfusion reaction with platelets 05/2019) Family Medical History Reviewed Nursing Family Hx Alcoholism 19 FATHER Cardiovascular disease 19 MOTHER Colon cancer 19 MOTHER Diabetes mellitus 19 MOTHER Neoplasm 19 MOTHER (colon ca w/ mets to liver ) Respiratory disorder 19 FATHER Cancer, Diabetes Physical Exam Vital Signs Vital Signs - First Documented 08/04/20 01:07 Temp 36.5 Pulse 98 Resp 18 B/P (MAP) 127/84 (98) Pulse Ox 94 O2 Delivery Nasal Cannula O2 Flow Rate 2.00 Capillary Refill : Less Than 3 Seconds Height, Weight, BMI Height: 5'0.00" Weight: 123lbs. 0.0oz. 55.639578qg; 25.00 BMI Method:Stated General Appearance: WD/WN, mild distress HEENT: PERRL/EOMI, pharynx normal Neck: full range of motion, supple Cardiovascular: regular rate, rhythm, no murmur Respiratory: lungs clear, normal breath sounds Gastrointestinal: non tender, soft Back: normal inspection, no CVA tenderness, no vertebral tenderness Hips: bilateral hip non-tender, bilateral hip normal inspection, bilateral hip normal range of motion, bilateral hip no evidence of injury Legs: right leg non-tender, right leg normal inspection, right leg normal range of motion; left leg pain, left leg soft tissue tenderness, left leg swelling, left leg other (instability noted to the lower tib-fib area. Pain through lower to mid tib-fib area up to knee on left bruising noted to the bottom of the left foot with swelling of the foot and ankle) Knees: bilateral knee non-tender, bilateral knee normal inspection, bilateral knee normal range of motion Ankles: right ankle non-tender, right ankle normal inspection, right ankle normal range of motion; left ankle soft tissue tenderness, left ankle swelling Feet: right foot non-tender, right foot normal inspection, right foot normal range of motion; left foot pain, left foot soft tissue tenderness Neurologic/Tendon: normal sensation, normal motor functions Neurologic/Psychiatric: alert, oriented x 3 Skin: warm/dry, ecchymosis (left foot) Progress/Results/Core Measures Results/Orders My Orders Orders - ZULEYKA MARQUEZ MD Tibia/Fibula, Left, 2 Views (08/04/20 01:18) Foot, Left, 3 Views (08/04/20 01:18) Tibia/Fibula, Left, 2 Views (08/04/20 01:49) Vital Signs/I&O 08/04/20 01:07 Temp 36.5 Pulse 98 Resp 18 B/P (MAP) 127/84 (98) Pulse Ox 94 O2 Delivery Nasal Cannula O2 Flow Rate 2.00 Blood Pressure Mean: 98 Progress Progress Note : Progress Note Seen and evaluated. X-ray left tib-fib and left foot. Fracture noted to distal left tib-fib with mild displacement. No other fracture noted. L and U splint applied over bulky dressing and secured with Jluis wraps. Distal pulses and sensation intact afterwards. 0210: I have discussed the case with Dr. Monaco, our on-call orthopedist. He has reviewed the films and is of the opinion that this exceeds his level of care due to complexity related to type of fracture and proximity to the joint as well as history of left knee replacement not allowing for melisa placement. 0226: I discussed the case with the ortho on-call at [facility] who asked me to talk with the on-call emergency department physician for transfer ER to ER due to this being a trauma. I did discuss the case with Dr. Sigala who has graciously accepted patient in transfer and this is much appreciated. We have electronically sent the films as well as have CD backup that will go with the patient. Patient is much more comfortable after splint placement. Patient will go by EMS. Patient agrees to plan. Diagnostic Imaging Diagonstic Imaging: Xray Plain Films/CT/US/NM/MRI: other Comments Left foot shows no acute fracture. Left tib-fib 2 view shows distal oblique fracture of both tibia and fibula on the left. Mild displacement noted. Departure Impression Primary Impression: Closed fracture of distal end of left fibula and tibia Qualified Codes: S82.302A - Unspecified fracture of lower end of left tibia, initial encounter for closed fracture; S82.832A - Other fracture of upper and lower end of left fibula, initial encounter for closed fracture Disposition: 02 XFER SHT-TRM HOSP Condition: Stable Transfer Transfer Reason: Exceeds level of care Time Spoke to Accepting Phy: 02:26 Transfer Facility: [place], [place], Dr. Sigala accepting Method of Transfer: EMS Departure-Patient Inst. Referrals: DILMA RAHMAN MD (PCP/Family) Primary Care Physician ZULEYKA MARQUEZ MD Aug 04, 2020 01:55
--- NOTE | 2020-08-04 02:40 | NUR ---
Contacted WARD Peter from [facility] regarding pt report. WARD Peter voices no further questions or concerns regarding transfer.
--- NOTE | 2020-08-04 02:40 | NUR ---
Contacted regulatory internship requesting ems transfer to [facility]. Contacted dispatch.
--- NOTE | 2020-08-04 02:45 | NUR ---
Pt signed consent for transfer to [facility] at this time.
--- NOTE | 2020-08-04 02:55 | NUR ---
Contacted [facility] et spoke with nurse Chinmay regarding pt findings et transfer to [facility]. Chinmay voices no questions or concerns for this RN. Pt updated.
--- NOTE | 2020-08-04 03:10 | NUR ---
Pt daughter, Keiko, contacted this RN regarding pt update. After pt agreement, this RN updates Keiko on transfer to [facility]. Kieko voices no further questions or concerns.
[2020-08-04 03:14] VITALS: BP 128/87
[2020-08-04] MEDS ORDERED: fentaNYL INJECTION 100 MCG/2 ML AMP IVP ONE (03:15)
--- NOTE | 2020-08-04 06:40 | Diagnostic Imaging Report ---
INDICATION: leg pain, fracture post splinting. TECHNIQUE: AP and lateral views of the left tibia and fibula 1:58 AM CORRELATION STUDY: 08/04/2020 and 11/26/2019 FINDINGS: Comminuted fracture of the distal 3rd of the tibia is present. Fracture lines extend into the distal tibial articular surface most pronounced medial malleolus. Additionally, there is comminuted fracture with minimal displacement distal fibular shaft. Partial visualization of knee arthroplasty hardware. There is cortical deformity about the proximal tibia. Appears at least partially healed from prior. Overlying splint material has been placed. IMPRESSION: 1. Splinting of the comminuted distal tibia and fibula fractures. 2. Findings compatible with partially healed proximal tibia fracture adjacent to the knee arthroplasty hardware. Dictated by: Dictated on workstation # [id number]
--- NOTE | 2020-08-04 06:44 | Diagnostic Imaging Report ---
INDICATION: leg pain TECHNIQUE: AP and lateral views of the left tibia and fibula CORRELATION STUDY: 11/26/2019 FINDINGS: Generalized bony demineralization. Postoperative changes of a knee arthroplasty. There is fracture deformity involving the proximal tibia. This appears to be nonacute at least is partially healed. Comminuted fractures of the distal 3rd of the tibia as well as distal fibular shaft. Fracture lines distal tibia extending into the articular surface most pronounced in the medial malleolus. There is slight dorsal angulation of the tibial fracture fragment. Soft tissue edema is present. IMPRESSION: 1.Comminuted and mildly angulated distal tibia and fibula fractures. Associated soft tissue edema. 2. Fracture deformity proximal tibia appears to be nonacute and is at least partially healed. Dictated by: Dictated on workstation # [id number]
--- NOTE | 2020-08-04 06:45 | Diagnostic Imaging Report ---
INDICATION: foot pain. TECHNIQUE: 3 views of the left foot CORRELATION STUDY: None FINDINGS: Bony demineralization. There is comminuted fracture involving the distal tibia and fibula better evaluated dedicated of leg films. The remainder of the foot is otherwise intact. Old 5th metatarsal fracture deformity. Soft tissue edema over the lower leg. IMPRESSION: 1. Comminuted angulated distal tibia and fibular fractures. Otherwise negative for acute fracture of the foot. Dictated by: Dictated on workstation # [id number]
== END 2020-08-04 03:14 | disposition short-term general hospital (02) ==
LOC: EDUNIT# 01:07 → ER 01:08
DX: S82.192A Other fracture of upper end of left tibia, initial encounter for closed fracture (principal); S82.832A Other fracture of upper and lower end of left fibula, initial encounter for closed fracture; F32.9 Major depressive disorder, single episode, unspecified; K21.9 Gastro-esophageal reflux disease without esophagitis; F41.9 Anxiety disorder, unspecified; Z88.8 Allergy status to other drugs, medicaments and biological substances; Z88.5 Allergy status to narcotic agent; Z83.3 Family history of diabetes mellitus; Z80.0 Family history of malignant neoplasm of digestive organs; Z82.49 Family history of ischemic heart disease and other diseases of the circulatory system; W19.XXXA Unspecified fall, initial encounter
CPT/HCPCS: 29515; 73590; 73630

== ENCOUNTER → 2020-08-27 | Outpatient (CLI) | payer MEDICARE, OTHER ==
[~2020-08-27] MED LIST changes: +BENZ-36 PO; +CHOL500044 PO; +CNC1KV IM; +DOCU-143 PO; +HYDR28.480 TP; +HYDR28OI2 TP; +LEVO250T46 PO; +NYST60PO TP; +ONDN4T PO; +OXYC1TAB12 PO; -POLY15DR14 OS; +POLY15DR14 OU; +PROM25VI IM; +PROM5SYR PO; +SALI45SP MM; +SODI30SP2 NS; +ZINC56CR2 TP; +[UNRECOGNIZED DRUG - CODE] IM
[2020-08-27 17:33] LABS: BILIRUBIN,URINE NEGATIVE (NEGATIVE); CLARITY,URINE CLEAR; COLOR,URINE YELLOW; GLUCOSE, URINE (UA) NEGATIVE (NEGATIVE); KETONES,URINE NEGATIVE (NEGATIVE); LEUKOCYTE ESTERASE ,URINE NEGATIVE (NEGATIVE); NITRITE,URINE NEGATIVE (NEGATIVE); PROTEIN,URINE NEGATIVE (NEGATIVE)
[2020-08-27 17:45] LABS: BACTERIA,URINE NEGATIVE /HPF; RBC,URINE 50-100 /HPF
== END ==
LOC: LABNPT 17:24
DX: D63.1 Anemia in chronic kidney disease (principal); N18.30 Chronic kidney disease, stage 3 unspecified
CPT/HCPCS: 81000; 82570; 84156

== ENCOUNTER 2020-08-29 10:38 | Inpatient (IN) | payer MEDICARE, OTHER ==
[~2020-08-29] VITALS: Ht 152.4 cm; Wt 68.6 kg
[~2020-08-29 10:38] MED LIST changes: -BENZ-36 PO; -CHOL500044 PO; -CNC1KV IM; -DOCU-143 PO; -HYDR28.480 TP; -HYDR28OI2 TP; -LEVO250T46 PO; -NYST60PO TP; -ONDN4T PO; -OXYC1TAB12 PO; -PROM25VI IM; -PROM5SYR PO; -SALI45SP MM; -SODI30SP2 NS; -ZINC56CR2 TP; -[UNRECOGNIZED DRUG - CODE] IM
[2020-08-29] MEDS ORDERED: NS IV 1000 ML 1,000 ML IV SCH (10:48)
--- NOTE | 2020-08-29 10:51 | ED Neurological Problem ---
General Chief Complaint: Neurological Problems Stated Complaint: AMS Source: patient Exam Limitations: no limitations History of Present Illness Date Seen by Provider: Aug 29, 2020 Time Seen by Provider: 10:38 Initial Comments Patient resents ER by EMS from via [facility] where she resides with chief complaint last 3 weeks she's had decreased appetite and poor fluid intake. She had some lab done a couple days ago demonstrated an elevated potassium and d ehydration. She is not coming by results from any urinalysis. She says she felt weak and shaky today. She's not having any lateralizing symptoms, slurred speech, confusion presently but staff said she was acting altered earlier this morning and difficult to answer questions. Blood sugar is normal and no mention of any fever or chills. No cough, shortness of breath. She says she gets a COVID-19 test about every third day and has always been negative. She is incontinent of urine and says she sometimes has some dysuria. She is not on a blood thinner. She denies history of stroke or heart attack. Patient has a left tibia-fibula fracture from a fall couple weeks ago. Allergies and Home Medications Allergies Coded Allergies: adhesive tape (Verified Allergy, Mild, RASH, 10/12/18) aspirin (Verified Allergy, Unknown, 10/12/18) meperidine (Verified Allergy, Unknown, 10/12/18) nitrofurantoin (Verified Allergy, Unknown, 10/12/18) Uncoded Allergies: SURGICAL TAPE (Allergy, Unknown, 05/14/07) Home Medications Acetaminophen 325 Mg Tablet, 650 MG PO Q4H PRN for PAIN-MILD (1-4), (Reported) TAKES 2 (325MG) TABLETS Calcium Carbonate/Vitamin D3 1 Each Tablet, 1 TAB PO BID, (Reported) Cholecalciferol (Vitamin D3) 5,000 Unit Capsule, 5,000 UNITS PO DAILY, (Reported) Diclofenac Sodium 100 Gm Gel..gram., 1 GM TP Q4H PRN for JOINT PAIN, (Reported) WRISTS/KNEES Ferrous Sulfate 325 Mg Tablet, 325 MG PO DAILY, (Reported) Fesoterodine Fumarate 8 Mg Tab.er.24h, 8 MG PO HS, (Reported) Fluoxetine HCl 20 Mg Capsule, 20 MG PO DAILY, (Reported) Gabapentin 800 Mg Tablet, 800 MG PO HS, (Reported) Gabapentin 600 Mg Tablet, 600 MG PO BID, (Reported) Hydrocortisone 28.35 Gm Cream.appl, TOP QID PRN for HEMORRHOIDS, (Reported) Loteprednol Etabonate 5 Gm Drops.gel, 1 DROP OD DAILY, (Reported) Meloxicam 7.5 Mg Tablet, 7.5 MG PO DAILY, (Reported) Montelukast Sodium 10 Mg Tablet, 10 MG PO HS, (Reported) Morphine Sulfate 30 Mg Tablet.er, 30 MG PO BID, (Reported) Naloxegol Oxalate 25 Mg Tablet, 25 MG PO DAILY, (Reported) Pantoprazole Sodium 40 Mg Tablet.dr, 40 MG PO 0600, (Reported) Polyethylene Glycol 3350 17 Gm Powd.pack, 17 GM PO DAILY PRN for CONSTIPATION- 2ND LINE, (Reported) Polyvinyl Alcohol/Povidone 15 Ml Drops, 1 DROP OS BID, (Reported) Promethazine HCl 25 Mg Tablet, 25 MG PO Q8H PRN for NAUSEA/VOMITING, (Reported) Saliva Stimulant Agents Comb.3 1 Each [place], 1 SPRAY MT BID, (Reported) Sucralfate 1 Gm Tablet, 1 GM PO TIDAC, (Reported) Patient Home Medication List Home Medication List Reviewed: Yes Review of Systems Review of Systems Constitutional: No chills, No diaphoresis Eyes: Denies Blindness, Denies Drainage Ears, Nose, Mouth, Throat: denies ear pain, denies ear discharge Respiratory: No cough Cardiovascular: No chest pain, No Hx of Intervention Gastrointestinal: No abdominal pain, No constipation, No diarrhea, No nausea Musculoskeletal: No back pain, No joint pain All Other Systems Reviewed Negative Unless Noted: Yes Past Aarjkyo-Jjssxk-Kdhsol Hx Patient Social History Alcohol Use: Denies Use Recreational Drug Use: No 2nd Hand Smoke Exposure: No Recent Hopitalizations: No Immunizations Up To Date Tetanus Booster (TDap): Less than 5yrs PED Vaccines UTD: No Date of Pneumonia Vaccine: Aug 31, 2017 Date of Influenza Vaccine: Jul 09, 2019 Seasonal Allergies Seasonal Allergies: No Past Medical History Surgeries: Yes (hiatal hernia, bilat hip sx, L TKR, L femur fx) Abdominal, Bowel Surgery, Gallbladder, Hysterectomy, Joint Replacement, Orthopedic, Vascular Surgery Respiratory: Yes (OXYGEN AT HS) COPD, Emphysema Cardiac: Yes Deep Vein Thrombosis, Hypertension Neurological: No 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 Disorders: No Genitourinary: Yes Renal Failure, UTI-Chronic Gastrointestinal: Yes (COLON RESECTION) Gastroesophageal Reflux, Hiatal Hernia, Ulcer Musculoskeletal: Yes (BILATERAL KNEES AND R HIP REPLACED AND BILATERAL FEMUR FX/ORIF'S ) Osteoporosis, Arthritis, Fractures Endocrine: No HEENT: Yes Glaucoma Hearing Impairment: Hard of Hearing Cancer: No Psychosocial: Yes Sleep Difficulties, Anxiety, Depression Integumentary: No Blood Disorders: Yes Adverse Reaction/Blood Tranf: Yes (Transfusion reaction with platelets 05/2019) Family Medical History Alcoholism 19 FATHER Cardiovascular disease 19 MOTHER Colon cancer 19 MOTHER Diabetes mellitus 19 MOTHER Neoplasm 19 MOTHER (colon ca w/ mets to liver ) Respiratory disorder 19 FATHER No Family History of: AIDS Abdominal aortic aneurysm Arthritis Asthma Dementia Drug abuse Hypertension Kidney disease Myocardial infarction Psychosocial problem Seizure disorder Severe allergy Thyroid disease Tuberculosis Cancer, Diabetes Physical Exam Vital Signs Vital Signs - First Documented 08/29/20 10:40 Temp 36.8 Pulse 92 Resp 15 B/P (MAP) 120/91 (101) Pulse Ox 95 O2 Delivery Room Air Capillary Refill : Height, Weight, BMI Height: 5'0.00" Weight: 123lbs. 0.0oz. [id number]; 25.00 BMI Method:Stated General Appearance: WD/WN, mild distress HEENT: PERRL/EOMI, TMs normal; No pharynx normal (mucosa is quite dry) Neck: non-tender, normal inspection Respiratory: lungs clear, normal breath sounds, no respiratory distress, no accessory muscle use Cardiovascular: normal peripheral pulses, regular rate, rhythm Peripheral Pulses: 2+ Radial Pulses (R), 2+ Radial Pulses (L) Gastrointestinal: normal bowel sounds, non tender, soft, no organomegaly Extremities: non-tender, normal capillary refill, other (left lower leg in cast) Neurologic/Psychiatric: alert, normal mood/affect, oriented x 3 Crainal Nerves: normal hearing, normal speech Motor/Sensory: no motor deficit, no sensory deficit, no pronator drift Skin: normal color, warm/dry Progress/Results/Core Measures Results/Orders Lab Results Laboratory Tests Test 08/29/20 10:45 08/29/20 11:55 Range/Units White Blood Count 5.7 4.3-11.0 10^3/uL Red Blood Count 3.40 L 3.80-5.11 10^6/uL Hemoglobin 10.4 L 11.5-16.0 g/dL Hematocrit 35 35-52 % Mean Corpuscular Volume 102 H 80-99 fL Mean Corpuscular Hemoglobin 31 25-34 pg Mean Corpuscular Hemoglobin Concent 30 L 32-36 g/dL Red Cell Distribution Width 14.2 10.0-14.5 % Platelet Count 95 L 130-400 10^3/uL Mean Platelet Volume 12.5 H 9.0-12.2 fL Immature Granulocyte % (Auto) 0 % Neutrophils (%) (Auto) 79 H 42-75 % Lymphocytes (%) (Auto) 14 12-44 % Monocytes (%) (Auto) 5 0-12 % Eosinophils (%) (Auto) 1 0-10 % Basophils (%) (Auto) 0 0-10 % Neutrophils # (Auto) 4.5 1.8-7.8 10^3/uL Lymphocytes # (Auto) 0.8 L 1.0-4.0 10^3/uL Monocytes # (Auto) 0.3 0.0-1.0 10^3/uL Eosinophils # (Auto) 0.1 0.0-0.3 10^3/uL Basophils # (Auto) 0.0 0.0-0.1 10^3/uL Immature Granulocyte # (Auto) 0.0 0.0-0.1 10^3/uL Sodium Level 140 135-145 MMOL/L Potassium Level 6.2 H 3.6-5.0 MMOL/L Chloride Level 101 98-107 MMOL/L Carbon Dioxide Level 29 21-32 MMOL/L Anion Gap 10 5-14 MMOL/L Blood Urea Nitrogen 32 H 7-18 MG/DL Creatinine 2.31 H 0.60-1.30 MG/DL Estimat Glomerular Filtration Rate 20 BUN/Creatinine Ratio 14 Glucose Level 94 70-105 MG/DL Calcium Level 8.8 8.5-10.1 MG/DL Corrected Calcium 9.5 8.5-10.1 MG/DL Total Bilirubin 0.7 0.1-1.0 MG/DL Aspartate Amino Transf (AST/SGOT) 24 5-34 U/L Alanine Aminotransferase (ALT/SGPT) 8 0-55 U/L Alkaline Phosphatase 163 H 40-136 U/L Troponin I 0.031 H <0.028 NG/ML C-Reactive Protein High Sensitivity 0.85 H 0.00-0.50 MG/DL Total Protein 6.7 6.4-8.2 GM/DL Albumin 3.1 L 3.2-4.5 GM/DL Urine Color YELLOW Urine Clarity CLOUDY Urine pH 8.5 5-9 Urine Specific [place] 1.015 L 1.016-1.022 Urine Protein 2+ H NEGATIVE Urine Glucose (UA) NEGATIVE NEGATIVE Urine Ketones NEGATIVE NEGATIVE Urine Nitrite NEGATIVE NEGATIVE Urine Bilirubin NEGATIVE NEGATIVE Urine Urobilinogen 0.2 < = 1.0 MG/DL Urine Leukocyte Esterase 2+ H NEGATIVE Urine RBC (Auto) 3+ H NEGATIVE Urine RBC 50-100 H /HPF Urine WBC 25-50 H /HPF Urine Squamous Epithelial Cells NONE /HPF Urine Crystals NONE /LPF Urine Bacteria TRACE /HPF Urine Casts NONE /LPF Urine Mucus NEGATIVE /LPF Urine Culture Indicated YES My Orders Orders - SHAWN GUSMAN Cbc With Automated Diff (08/29/20 10:48) Comprehensive Metabolic Panel (08/29/20 10:48) Straight Cath For Spec.-Adult (08/29/20 10:48) Hs C Reactive Protein (08/29/20 10:48) Ua Culture If Indicated (08/29/20 10:48) Ed Iv/Invasive Line Start (08/29/20 10:48) Ns Iv 1000 Ml (Sodium Chloride 0.9%) (08/29/20 10:48) Chest 1 View, Ap/Pa Only (08/29/20 10:48) Ct Head Wo (08/29/20 10:48) Albuterol Pre-Mix Nebs (Rt) (Proventil (08/29/20 11:54) Svn Small Volume Nebulizer (08/29/20 11:54) Calcium Gluconate 10% Inj (Calcium Glu (08/29/20 12:00) Ekg Tracing (08/29/20 11:54) Continuous Ekg Monitoring (08/29/20 11:54) Troponin I (08/29/20 11:54) Urine Culture (08/29/20 11:55) Medications Given in ED Current Medications Medications Dose Ordered Sig/Missael Route Start Time Stop Time Status Last Admin Dose Admin Calcium Gluconate 4.65 meq ONCE ONCE IV 08/29/20 12:00 08/29/20 12:01 DC 08/29/20 12:08 4.65 MEQ Vital Signs/I&O 08/29/20 10:40 Temp 36.8 Pulse 92 Resp 15 B/P (MAP) 120/91 (101) Pulse Ox 95 O2 Delivery Room Air Progress Progress Note #1: Time: 12:24 Progress Note The specimen from the urine was collected by straight catheter which had some bloody appearance. Rest of her labs look okay with stable creatinine however her potassium has climbed in the last 3 days. We'll give her some albuterol and a gram of calcium gluconate to help reduce that. We are also giving her some fluids as she does appear to be dry. Progress Note #2: Time: 12:33 Progress Note Her marginal elevation in troponin is probably related to her baseline chronic kidney disease and dehydration however since this is been going on for a few weeks. I keep her overnight for some observation, IV fluids and repeat troponins overnight. Initial ECG Impression Date: Aug 29, 2020 Initial ECG Impression Time: 12:15 Initial ECG Rate: 93 Initial ECG Rhythm: Normal Sinus Initial ECG Intervals: NM (216) Initial ECG Impression: Normal Comment Normal sinus rhythm without clinically relevant ST changes. Diagnostic Imaging Diagonstic Imaging: Xray Plain Films/CT/US/NM/MRI: chest Comments NAME: DORINA SEAMAN [facility] REC#: [id number] PT STATUS: REG ER : 1935 PHYSICIAN: SHAWN GUSMAN MD ADMIT DATE: 08/29/20/ER Draft Date of Exam:08/29/20 CHEST 1 VIEW, AP/PA ONLY INDICATION: Weakness. Comparison made with prior examination 10/12/2019. FINDINGS: There is mild cardiomegaly. There is some left basilar atelectasis and/or pneumonitis. There is no pleural effusion or pneumothorax. Mediastinum is unremarkable. IMPRESSION: Mild cardiomegaly and some scarring or atelectasis in the left lung base. Dictated on workstation # [id number] Dict: 08/29/20 1145 Trans: 08/29/20 1225 [facility] [id number] Interpreted by: MARIA DEL CARMEN HEREDIA MD Electronically signed by: Reviewed: Reviewed by Me Diagonstic Imaging: CT Plain Films/CT/US/NM/MRI: head Comments [facility] [place] [facility] [id number] PT STATUS: REG ER : 1935 PHYSICIAN: SHAWN GUSMAN MD ADMIT DATE: 08/29/20/ER Draft Date of Exam:08/29/20 CT HEAD WO PROCEDURE: CT head without contrast. TECHNIQUE: Multiple contiguous axial images were obtained through the brain without the use of intravenous contrast. Auto Exposure Controls were utilized during the CT exam to meet ALARA standards for radiation dose reduction. DATE: August 29, 2020. COMPARISON: CT head May 27, 2019. INDICATION: 85-year-old female, altered mental status. Weakness. FINDINGS: There is proportional prominence of the ventricles and CSF spaces consistent with mild cerebral volume loss. There is no mass effect or midline shift. There is no acute intracranial hemorrhage. There is no abnormal extra-axial fluid collection. The visualized portions of the paranasal sinuses, mastoid air cells and middle ears are well aerated. IMPRESSION: 1. No identified acute intracranial abnormality. 2. Mild cerebral volume loss. Dictated on workstation # [id number] Dict: 08/29/20 1133 Trans: 08/29/20 1200 CVB [id number] Interpreted by: LELAND MONROE MD Electronically signed by: Reviewed: Reviewed by Me Departure Communication (Admissions) Time/Spoke to Admitting Phy: 12:30 Discussed the case with Dr. Viramontes and she agrees to observe the patient on IV fluids, repeat potassium in the morning and treatment with Rocephin. Impression Primary Impression: UTI (urinary tract infection) Qualified Codes: N30.01 - Acute cystitis with hematuria Additional Impressions: Dehydration Hyperkalemia Elevated troponin I level Disposition: ADMITTED INPATIENT Condition: Stable Admissions Decision to Admit Reason: Admit from ER (General) Decision to Admit/Date: Aug 29, 2020 Time/Decision to Admit Time: 12:15 Departure-Patient Inst. Referrals: DILMA RAHMAN MD (PCP/Family) Primary Care Physician SHAWN GUSMAN Aug 29, 2020 10:51
[2020-08-29 10:57] LABS: BASOPHILS % (AUTO) 0 % (0-10); EOSINOPHILS # (AUTO) 0.1 10^3/uL (0.0-0.3); EOSINOPHILS % (AUTO) 1 % (0-10); HEMATOCRIT 35 % (35-52); HEMOGLOBIN 10.4 g/dL (11.5-16.0); LYMPHOCYTES # (AUTO) 0.8 10^3/uL (1.0-4.0); LYMPHOCYTES % (AUTO) 14 % (12-44); MEAN CORPUSCULAR HEMOGLOBIN 31 pg (25-34); MEAN CORPUSCULAR HGB CONC 30 g/dL (32-36); MEAN CORPUSCULAR VOLUME 102 fL (80-99); MEAN PLATELET VOLUME 12.5 fL (9.0-12.2); MONOCYTES # (AUTO) 0.3 10^3/uL (0.0-1.0); MONOCYTES % (AUTO) 5 % (0-12); NEUTROPHILS # (AUTO) 4.5 10^3/uL (1.8-7.8); NEUTROPHILS % (AUTO) 79 % (42-75); PLATELET COUNT 95 10^3/uL (130-400); WHITE BLOOD COUNT 5.7 10^3/uL (4.3-11.0)
[2020-08-29 11:12] LABS: POTASSIUM 6.2 MMOL/L (3.6-5.0)
[2020-08-29 11:13] LABS: ALBUMIN 3.1 GM/DL (3.2-4.5)
[2020-08-29 11:14] LABS: CALCIUM 8.8 MG/DL (8.5-10.1)
[2020-08-29 11:15] LABS: TOTAL PROTEIN 6.7 GM/DL (6.4-8.2)
[2020-08-29 11:17] LABS: BILIRUBIN,TOTAL 0.7 MG/DL (0.1-1.0)
[2020-08-29 11:19] LABS: CREATININE SERUM 2.31 MG/DL (0.60-1.30)
--- NOTE | 2020-08-29 11:51 | NUR ---
Spoke with daughter via phone.
[2020-08-29] MEDS ORDERED: RT-ALBUTEROL SULF 2.5 MG/3 ML PRE-MIX VIAL INH STA (11:54)
[2020-08-29] MEDS ORDERED: CALCIUM GLUC. 10% 4.65 MEQ/10 ML VIAL IV ONE (12:00)
--- NOTE | 2020-08-29 12:01 | Diagnostic Imaging Report ---
PROCEDURE: CT head without contrast. TECHNIQUE: Multiple contiguous axial images were obtained through the brain without the use of intravenous contrast. Auto Exposure Controls were utilized during the CT exam to meet ALARA standards for radiation dose reduction. DATE: August 29, 2020. COMPARISON: CT head May 27, 2019. INDICATION: 85-year-old female, altered mental status. Weakness. FINDINGS: There is proportional prominence of the ventricles and CSF spaces consistent with mild cerebral volume loss. There is no mass effect or midline shift. There is no acute intracranial hemorrhage. There is no abnormal extra-axial fluid collection. The visualized portions of the paranasal sinuses, mastoid air cells and middle ears are well aerated. IMPRESSION: 1. No identified acute intracranial abnormality. 2. Mild cerebral volume loss. Dictated by: Dictated on workstation # [id number]
[2020-08-29 12:15] LABS: BILIRUBIN,URINE NEGATIVE (NEGATIVE); CLARITY,URINE CLOUDY; COLOR,URINE YELLOW; GLUCOSE, URINE (UA) NEGATIVE (NEGATIVE); KETONES,URINE NEGATIVE (NEGATIVE); LEUKOCYTE ESTERASE ,URINE 2+ (NEGATIVE); NITRITE,URINE NEGATIVE (NEGATIVE); PH,URINE 8.5 (5-9); PROTEIN,URINE 2+ (NEGATIVE)
[2020-08-29 12:18] LABS: BACTERIA,URINE TRACE /HPF; RBC,URINE 50-100 /HPF; WBC,URINE 25-50 /HPF
--- NOTE | 2020-08-29 12:26 | Diagnostic Imaging Report ---
INDICATION: Weakness. Comparison made with prior examination 10/12/2019. FINDINGS: There is mild cardiomegaly. There is some left basilar atelectasis and/or pneumonitis. There is no pleural effusion or pneumothorax. Mediastinum is unremarkable. IMPRESSION: Mild cardiomegaly and some scarring or atelectasis in the left lung base. Dictated by: Dictated on workstation # [id number]
[2020-08-29] MEDS ORDERED: cefTRIAXone FOR IV USE 1,000 MG in WATER (STERILE) FOR INJECTION 10 ML IV ONE (12:45)
--- NOTE | 2020-08-29 12:46 | NUR ---
Spoke with daughter via phone regarding admission.
[2020-08-29] MEDS ORDERED: cefTRIAXone 1,000 MG IV (ROCEPHIN) VIAL ONE (12:55)
[2020-08-29] MEDS ORDERED: WATER (STERILE) FOR INJECTION 10 ML ONE (12:56)
--- NOTE | 2020-08-29 13:19 | NUR ---
RAC IV failed; discontinued. 22g started in LAC.
--- NOTE | 2020-08-29 13:44 | NUR ---
Dr. Viramontes in room with pt.
--- NOTE | 2020-08-29 14:00 | NUR ---
DORINA SEAMAN admitted to room 411-1, with an admitting diagnosis of UTI, on 08/29/20 from ED via [facility], accompanied by STAFF. DORINA SEAMAN introduced to surroundings, call light, bed controls, phone, TV, temperature control, lights, meal times, smoking policy, visitor policy, side rail policy, bathrooms and showers. Patient Rights given to patient in the handbook. DORINA SEAMAN verbalizes understanding that [facility] is not responsible for the loss or damage to any personal effects or valuables that are kept in the patients posession during their hospitalization. The following Patient Care Plans were discussed with the PT: Discharge Planning, PAIN, AND UTI. DORINA SEAMAN verbalizes understanding of Interdisciplinary Patient Education. Patient and/or family were informed about the Rapid Response Team and its purpose.
[2020-08-29 14:33] VITALS: BP 124/58
--- NOTE | 2020-08-29 14:38 | History & Physical-Hospitalist ---
History of Present Illness HPI/Chief Complaint Pt is an 85yoCF with a PMH of GI bleeds, DVTs, multiple fractures most recently being 08/04/20 who presented to the ER due to confusion per the ER. Patient states that she has actually not been feeling well for a couple of weeks. They tested her from [facility] 3 days ago and it was negative. She had labs done then as well which revealed hyperkalemia and dehydration. She felt more weak today as well. She was thought to be altered by the [place] home staff but is at the baseline I know her from during our previous encounters and she actually remembers me from her visit in October. Source: patient Date Seen 08/29/20 Time Seen by a Provider: 14:31 Attending Physician Phuong Viramontes MD PCP Titi Rahman MD Referring Physician Date of Admission Aug 29, 2020 at 12:40 Home Medications & Allergies Home Medications Reviewed patient Home Medication Reconciliation performed by pharmacy medication reconciliations machine maintenance technician and/or nursing. Patients Allergies have been reviewed. Allergies Allergies Coded Allergies adhesive tape (Verified Allergy, Mild, RASH, 08/29/20) aspirin (Verified Allergy, Unknown, 08/29/20) meperidine (Verified Allergy, Unknown, 08/29/20) nitrofurantoin (Verified Allergy, Unknown, 08/29/20) Uncoded Allergies SURGICAL TAPE ( Allergy, Unknown, 05/14/07) Past Pgtywqj-Oixbeu-Gsrllb Hx Past Med/Social Hx: Reviewed Nursing Past Med/Soc Hx Patient Social History Employed/Student: retired Alcohol Use: Denies Use Recreational Drug Use: No Smoking Status: Unknown if Ever Smoked 2nd Hand Smoke Exposure: No Recent Foreign Travel: No Contact w/other who traveled: No Recent Hopitalizations: No Recent Infectious Disease Expo: No Immunizations Up To Date Tetanus Booster (TDap): Less than 5yrs Pediatric: No Date of Pneumonia Vaccine: Aug 31, 2017 Date of Influenza Vaccine: Jul 09, 2019 Seasonal Allergies Seasonal Allergies: No Past Medical History Surgeries: Abdominal, Bowel Surgery, Gallbladder, Hysterectomy, Joint Replacement, Orthopedic, Vascular Surgery ivc filter 11/08/2018 Cardiac: Deep Vein Thrombosis, Hypertension 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: No Genitourinary: Renal Failure, UTI-Chronic Gastrointestinal: Gastroesophageal Reflux, Hiatal Hernia, Ulcer Musculoskeletal: Osteoporosis, Arthritis, Fractures HEENT: Glaucoma Hearing Impairment: Hard of Hearing Psychosocial: Sleep Difficulties, Anxiety, Depression History of Blood Disorders: Yes Adverse Reaction to Blood Felipe: Yes (Transfusion reaction with platelets 05/2019) Family History Reviewed Nursing Family Hx Alcoholism 19 FATHER Cardiovascular disease 19 MOTHER Colon cancer 19 MOTHER Diabetes mellitus 19 MOTHER Neoplasm 19 MOTHER (colon ca w/ mets to liver ) Respiratory disorder 19 FATHER No Family History of: AIDS Abdominal aortic aneurysm Arthritis Asthma Dementia Drug abuse Hypertension Kidney disease Myocardial infarction Psychosocial problem Seizure disorder Severe allergy Thyroid disease Tuberculosis Cancer, Diabetes Review of Systems Constitutional: No chills, No fever; weakness EENTM: no symptoms reported Respiratory: No cough, No short of breath Gastrointestinal: No abdominal pain; loss of appetite Genitourinary: incontinence Musculoskeletal: other (recent tib fib fracture) Physical Exam Physical Exam Vital Signs Vital Signs - First Documented 08/29/20 08/29/20 10:40 12:38 Temp 36.8 Pulse 92 Resp 15 B/P (MAP) 120/91 (101) Pulse Ox 95 O2 Delivery Room Air O2 Flow Rate 2.00 Capillary Refill : Less Than 3 Seconds Height, Weight, BMI Height: 5'0.00" Weight: 123lbs. 0.0oz. 55.873568kt; 26.00 BMI Method:Stated General Appearance: No Apparent Distress, Chronically ill, Cachetic Neck: Normal Inspection, Supple Respiratory: Lungs Clear, No Accessory Muscle Use, No Respiratory Distress Cardiovascular: Regular Rate, Rhythm, No Murmur Extremity: Other (left leg in bracing) Neurologic/Psychiatric: Alert, Oriented x3, Normal Mood/Affect Results Results/Procedures Labs Laboratory Tests 08/29/20 10:45 08/29/20 15:07 08/30/20 06:11 08/30/20 06:37 Patient resulted labs reviewed. Imaging: Reviewed Imaging Report Imaging [facility], [place] NAME: DORINA SEAMAN [facility] REC#: [id number] PT STATUS: ADM Анна : 1935 PHYSICIAN: SHAWN GUSMAN MD ADMIT DATE: 08/29/20 Signed Date of Exam:08/29/20 CT HEAD WO PROCEDURE: CT head without contrast. TECHNIQUE: Multiple contiguous axial images were obtained through the brain without the use of intravenous contrast. Auto Exposure Controls were utilized during the CT exam to meet ALARA standards for radiation dose reduction. DATE: August 29, 2020. COMPARISON: CT head May 27, 2019. INDICATION: 85-year-old female, altered mental status. Weakness. FINDINGS: There is proportional prominence of the ventricles and CSF spaces consistent with mild cerebral volume loss. There is no mass effect or midline shift. There is no acute intracranial hemorrhage. There is no abnormal extra-axial fluid collection. The visualized portions of the paranasal sinuses, mastoid air cells and middle ears are well aerated. IMPRESSION: 1. No identified acute intracranial abnormality. 2. Mild cerebral volume loss. Dictated by: Dictated on workstation # [id number] Dict: 08/29/20 1133 Trans: 08/29/20 1301 CVB [id number] Interpreted by: LELAND MONROE MD Electronically signed by: LELAND MONROE MD 08/29/20 1301 [facility], [place] NAME: DORINA SEAMAN [facility] REC#: [id number] PT STATUS: ADM Анна : 1935 PHYSICIAN: SHAWN GUSMAN MD ADMIT DATE: 08/29/20 Signed Date of Exam:08/29/20 CHEST 1 VIEW, AP/PA ONLY INDICATION: Weakness. Comparison made with prior examination 10/12/2019. FINDINGS: There is mild cardiomegaly. There is some left basilar atelectasis and/or pneumonitis. There is no pleural effusion or pneumothorax. Mediastinum is unremarkable. IMPRESSION: Mild cardiomegaly and some scarring or atelectasis in the left lung base. Dictated by: Dictated on workstation # [id number] Dict: 08/29/20 1145 Trans: 08/29/20 1257 IMS [id number] Interpreted by: MARIA DEL CARMEN HEREDIA MD Electronically signed by: MARIA DEL CARMEN HEREDIA MD 08/29/20 1257 Assessment/Plan Admission Diagnosis Dehydration Admission Status: Observation Assessment and Plan Dehydration CKD with hyperkalemia K 6.2 and [place] Runner 2.31 on arrival S/p albuterol, calcium, 1 liter NS in the ER Recheck BMP Continue IVF UTI Continue Rocephin Recent tib/fib fracture Repair at OSH Unsure of weightbearing status- will resume PT when able Thrombocytopenia h/o HIT h/o GI bleed h/o VTE Will hold anticoagulation as patient reports she is not supposed to be on it This is high risk giving recent surgery and limited mobility status Unable to get CTA as well due to kidney function if she does become hypoxic Monitor closely Copy Copies To 1: TITI RAHMAN MD, KATELYN M MD Aug 29, 2020 14:38
[2020-08-29] MEDS ORDERED: SODI30SP2 NS (14:58)
[2020-08-29] MEDS ORDERED: ANTACID SUSP 30 ML UDC (MYLANTA) PO PRN (15:00)
[2020-08-29] MEDS ORDERED: ONDANSETRON 4 MG/2 ML (SDV) Z0FRAN IV PRN (15:00)
[2020-08-29] MEDS ORDERED: ACETAMINOPHEN 325 MG TABLET PO PRN (15:00)
[2020-08-29] MEDS ORDERED: PROM5SYR PO (15:00)
[2020-08-29] MEDS ORDERED: FESO8TAB PO (15:01)
[2020-08-29] MEDS ORDERED: ONDN4T PO (15:03)
[2020-08-29] MEDS ORDERED: HYDR28.341 RC (15:04)
[2020-08-29] MEDS ORDERED: [UNRECOGNIZED DRUG - CODE] IM (15:06)
[2020-08-29] MEDS ORDERED: NYST60PO TP (15:08)
[2020-08-29] MEDS ORDERED: MAGN400O7 PO ×2 (15:10→15:11)
[2020-08-29] MEDS ORDERED: HYDR28.480 TP (15:14)
[2020-08-29] MEDS ORDERED: DOCU-143 PO (15:16)
[2020-08-29] MEDS ORDERED: ZINC56CR2 TP (15:17)
[2020-08-29] MEDS ORDERED: CNC1KV IM (15:19)
[2020-08-29] MEDS ORDERED: LORA10CA PO (15:20)
[2020-08-29] MEDS ORDERED: BENZ-36 PO (15:22)
[2020-08-29] MEDS ORDERED: SALI45SP MM (15:24)
[2020-08-29] MEDS ORDERED: POLY15DR14 OU (15:26)
[2020-08-29] MEDS ORDERED: OXYC1TAB12 PO (15:27)
[2020-08-29] MEDS ORDERED: HYDR30CR69 RC (15:28)
[2020-08-29 15:32] LABS: CALCIUM 9.1 MG/DL (8.5-10.1); CREATININE SERUM 2.21 MG/DL (0.60-1.30); POTASSIUM 4.8 MMOL/L (3.6-5.0)
[2020-08-29 16:00] VITALS: BP 100/60
[2020-08-29] MEDS: 1/2 NS IV SOLUTION 1,000 ML IV SCH ×2 (16:16→17:56)
--- NOTE | 2020-08-29 16:30 | NUR ---
DR. VIDAL NOTIFIED [facility] RECONCILED.
[2020-08-29 20:00] VITALS: BP 82/48
--- NOTE | 2020-08-29 21:51 | NUR ---
PCTT NOTIFIED THIS RN OF PT'S B/P OF 90/60 AT APPROXIMATELY 193, TAKEN MANUALLY. THIS RN REASSESSED PT'S B/P MANUALLY AT 1944 AND GOT READING OF 82/48. PT STATED THAT HER B/P WILL OFTEN RUN LOW BUT WAS UNABLE TO RECALL HOW LOW. PT DENIED ANY COMPLAINTS OF DIZZINESS, NAUSEA, OR INCREASED WEAKNESS/FATIGUE. PT STATED SHE FEELS FINE. AT 1949 DR. VIDAL CONTACTED AND NOTIFIED OF PT'S B/P. ORDERS RECEIVED TO INCREASE IV FLUIDS FROM 120ML/HR TO 150ML/HR. FLUIDS INCREASED AT APPROXIMATELY 1954. PT'S B/P REASSESSED MANUALLY AT 2034 WITH A READING OF 90/50 OBTAINED. PT'S B/P REASSESSED MANUALLY AT 2134 WITH A READING OF 95/52 OBTAINED.
[2020-08-30] VITALS (7 sets, daily range): BP systolic 80–115; BP diastolic 40–72
[2020-08-30] MEDS: 1/2 NS IV SOLUTION 1,000 ML IV SCH ×3 (01:29→11:25)
[2020-08-30 06:37] LABS: ALBUMIN 2.1 GM/DL (3.2-4.5); POTASSIUM 4.9 MMOL/L (3.6-5.0)
[2020-08-30 06:40] LABS: TOTAL PROTEIN 4.5 GM/DL (6.4-8.2)
[2020-08-30 06:42] LABS: BILIRUBIN,TOTAL 0.8 MG/DL (0.1-1.0)
[2020-08-30 06:43] LABS: CREATININE SERUM 1.51 MG/DL (0.60-1.30)
[2020-08-30 07:12] LABS: BASOPHILS % (AUTO) 1 % (0-10); EOSINOPHILS # (AUTO) 0.2 10^3/uL (0.0-0.3); EOSINOPHILS % (AUTO) 3 % (0-10); HEMATOCRIT 31 % (35-52); HEMOGLOBIN 9.3 g/dL (11.5-16.0); LYMPHOCYTES # (AUTO) 0.9 10^3/uL (1.0-4.0); LYMPHOCYTES % (AUTO) 14 % (12-44); MEAN CORPUSCULAR HEMOGLOBIN 30 pg (25-34); MEAN CORPUSCULAR HGB CONC 30 g/dL (32-36); MEAN CORPUSCULAR VOLUME 101 fL (80-99); MEAN PLATELET VOLUME 12.4 fL (9.0-12.2); MONOCYTES # (AUTO) 0.4 10^3/uL (0.0-1.0); MONOCYTES % (AUTO) 6 % (0-12); NEUTROPHILS # (AUTO) 5.1 10^3/uL (1.8-7.8); NEUTROPHILS % (AUTO) 77 % (42-75); PLATELET COUNT 130 10^3/uL (130-400); WHITE BLOOD COUNT 6.7 10^3/uL (4.3-11.0)
--- NOTE | 2020-08-30 09:50 | Progress Note - Hospitalist ---
ABI ISAAC MED STUDENT 08/30/20 0950: Subjective HPI/CC On Admission Pt is an 85yoCF with a PMH of GI bleeds, DVTs, multiple fractures most recently being 08/04/20 who presented to the ER due to confusion per the ER. Patient states that she has actually not been feeling well for a couple of weeks. They tested her from [facility] 3 days ago and it was negative. She had labs done then as well which revealed hyperkalemia and dehydration. She felt more weak today as well. She was thought to be altered by the [facility] home staff but is at the baseline I know her from during our previous encounters and she actually remembers me from her visit in October. Subjective/Events-last exam Pt states she is feeling better than yesterday and her nausea has receded. Pt thats that her main concern that now is her weakness/tremor. Pt states when she goes to eat or drink something 'I spill most of it'. Pt states this is something shes had for a long time. Pts BP got to 82/48 last night, per nurse report, pt denied any sxs related to her hypotension. Pt denies any night sweats, SOB, or chest pain. No calf tenderness was palpated though most of her L calf could not be palpated due to cast for recent fracture. Review of Systems General: No Chills, No Night Sweats, No Fatigue HEENT: No Dysphasia Pulmonary: No Dyspnea, No Cough, No Pleuritic Chest Pain Cardiovascular: No: Chest Pain, Palpitations, Lt Headedness Gastrointestinal: No: Nausea, Vomiting, Abdominal Pain Genitourinary: No Dysuria; Other (morse cath in place. ) Neurological: Weakness Objective Exam Vital Signs Vital Signs Date Time Temp Pulse Resp B/P (MAP) Pulse Ox O2 Delivery O2 Flow Rate FiO2 08/30/20 07:14 36.0 68 18 104/55 (71) 99 Room Air 08/29/20 19:45 2.00 Capillary Refill : Less Than 3 SecondsLess Than 3 Seconds General Appearance: No Apparent Distress, Chronically ill HEENT: PERRL/EOMI, Normal ENT Inspection Neck: Full Range of Motion, Normal Inspection, Non Tender Respiratory: Lungs Clear, Normal Breath Sounds, No Accessory Muscle Use, No Respiratory Distress Cardiovascular: Regular Rate, Rhythm, Normal Peripheral Pulses, Systolic Murmur Gastrointestinal: Normal Bowel Sounds, Non Tender, Soft Rectal: Deferred Extremity: Normal Capillary Refill, No Calf Tenderness (No R calf tenderness. ), Other (Full leg cast on LLE. ) Neurologic/Psychiatric: Alert, Oriented x3, Normal Mood/Affect, early intervention school psychologist II-XII Norm as Tested, Other (pt has resting tremor, and rigidity on PE. ) Results/Procedures Lab Laboratory Tests 08/29/20 10:45 08/29/20 15:07 08/30/20 06:11 08/30/20 06:37 Patient resulted labs reviewed. Imaging: Reviewed Imaging Report Assessment/Plan Assessment and Plan Assess & Plan/Chief Complaint Acute on CKD Creatinine over baseline. Creatinine fell today. Likely 2/2 dehydration potentially due to UTI. Pt on IV fluids, Normal saline at 150ml/hr. Pt echo from last year show 75% EF, but considering pts age follow BNP serially to monitor for fluid overload. Uncomplicated UTI Urine culture grows +100K CFU psuedomonas. Consider changing antibiotic from ceftriaxone to cefepime for better coverage until sensitivities come back. Pt does not have a hx of multi-resistant UTIs. Recent tib/fib fracture impairs mobility. increase pts risk for DVT/PE. start PT/OT as soon as able. Parkinsonism Pt has resting tremor, rigidity and bradykinesia on PE. Pt also can recent hx of multiple falls. Consider trial of Sinemet. Macrocytic anemia Chronic problem with pt. Pt supplemented with cobalamin and iron. Consider folate supplementation. Chronic constipation COPD Resume home meds. 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 Hold anticoagulation. Start SCD. Clinical Quality Measures DVT/VTE Risk/Contraindication: Risk Factor Score Per Nursin RFS Level Per Nursing on Admit: 4+=Very High RIZWAN VIRAMONTES MD 08/30/20 1330: Subjective HPI/CC On Admission Date Seen by Provider: Aug 30, 2020 Time Seen by Provider: 13:28 Assessment/Plan Assessment and Plan Assess & Plan/Chief Complaint Doing much better today. Will switch abx to Zosyn to cover for psuedomonas. Decrease fluid rate and creatinine improving but still not eating well. If continues to do well may be able to DC back to the [facility] tomorrow. Supervisory-Addendum Brief Verification & Attestation Participated in pt care: history, MDM, physical Personally performed: exam, history, MDM, supervision of care Care discussed with: Medical Student Procedures: n/a Results interpretation: Verified all documentation Verification and Attestation of Medical Student E/M Service A medical student performed and documented this service in my presence. I re viewed and verified all information documented by the medical student and made modifications to such information, when appropriate. I personally performed the physical exam and medical decision making. Rizwan Viramontes, Aug 30, 2020,13:28 ABI ISAAC MED STUDENT Aug 30, 2020 09:50 RIZWAN VIRAMONTES MD Aug 30, 2020 13:30
[2020-08-30] MEDS ORDERED: PIPERACILLIN/TAZOBACTAM (BULK) 4.5 GM in NS (IVPB) 100 ML IV NR (11:31)
[2020-08-30] MEDS: LACTOBACILLUS ACIDOPHILUS (PROBIOTIC) CAPSULE PO SCH ×2 (12:30→17:34)
[2020-08-30] MEDS ORDERED: cefTRIAXone 1,000 MG/SWFI 10 ML IV PUSH IV SCH ×2 (13:00)
[2020-08-30] MEDS ORDERED: SENNA W/DOCUSATE (SENOKOT S) TABLET PO PRN (14:45)
[2020-08-30] MEDS: PIPERACILLIN/TAZOBACTAM (BULK) 4.5 GM in NS (IVPB) 100 ML IV SCH (17:40)
--- NOTE | 2020-08-30 21:29 | NUR ---
[email or web address] CALLED THIS RN AT 2038 AND REPORTED THAT PT'S TELE WAS SHOWING A-FIB. THIS RN ASSESSED PT AND NOTED A STEADY HEART RATE WITH A MISSED BEAT AT IRREGULAR INTERVALS. PT DENIES CHEST PAIN/DISCOMFORT, DIZZINESS, AND SOB. PT IS ALERT AND ORIENTED AT TIME OF ASSESSMENT AND ANSWERING QUESTIONS APPROPRIATELY. CALLED DR. VIDAL AT 2043 TO REPORT CHANGE IN CONDITION. ORDERS RECEIVED FOR EKG. EKG RESULTS CALLED TO DR. VIDAL AND PLACED IN PT'S CHART. NO NEW ORDERS RECEIVED.
[2020-08-31] MEDS: PIPERACILLIN/TAZOBACTAM (BULK) 4.5 GM in NS (IVPB) 100 ML IV SCH ×2 (01:47→10:53)
[2020-08-31 04:19] VITALS: BP 94/60
[2020-08-31 05:59] LABS: WHITE BLOOD COUNT 4.4 10^3/uL (4.3-11.0)
[2020-08-31 06:01] LABS: MEAN PLATELET VOLUME 12.3 fL (9.0-12.2)
[2020-08-31 06:15] LABS: POTASSIUM 5.3 MMOL/L (3.6-5.0)
[2020-08-31 06:16] LABS: CALCIUM 7.5 MG/DL (8.5-10.1)
[2020-08-31 06:21] LABS: CREATININE SERUM 1.9 MG/DL (0.60-1.30)
[2020-08-31] MEDS: 1/2 NS IV SOLUTION 1,000 ML IV SCH (06:56)
[2020-08-31 08:00] VITALS: BP 109/56
[2020-08-31] MEDS: polyethylene glycoL POWDER 17 GM (MIRALAX) PACK PO PRN ×2 (08:04→21:13)
[2020-08-31] MEDS: LACTOBACILLUS ACIDOPHILUS (PROBIOTIC) CAPSULE PO SCH ×3 (08:04→17:03)
[2020-08-31] MEDS ORDERED: HYDR28OI2 TP (08:52)
[2020-08-31] MEDS ORDERED: CHOL500044 PO (08:52)
[2020-08-31] MEDS ORDERED: PROM25VI IM (08:52)
--- NOTE | 2020-08-31 08:55 | NUR ---
MED REC WAS ENTERED USING THE PHYSICIANS ORDER FROM [facility]
--- NOTE | 2020-08-31 11:26 | NUR ---
RD ASSESSMENT PMHx: DVT; HTN; GERD; hiatal hernia; PT INTERACTION: Pt was awake and pleasant during nutrition assessment. Pt states current appetite is "not too good," and it has been this way for a while. Note avg PO intake 56% x2d, per chart review. Pt states following a regular diet at home, and has some issues with chewing food as she is missing several teeth. Pt states no recent issues with nausea or vomiting. Pt states some recent issues with constipation and diarrhea. Note last BM was 08/31, and pt currently on bowel regimen of senna PRN, and miralax PRN, per chart review. Pt states no recent wt changes. Note recent 5# wt gain x8mon, per chart review. ABNORMAL NUTRITION-RELATED LAB VALUES LOW: Ca 7.5; Pro 4.5; alb 2.1 HIGH: K 5.3; BUN 30; cr 1.90 Est. kcal needs: 2790-4463 kcal | 20-25 kcal/kg Est. Pro needs: 69-82 g Pro | 1.0-1.2 g Pro/kg PES STATEMENT: Inadequate oral intake (NI-2.1) related to loss of appetite, constipation, and diarrhea, as evidenced by pt interview, and avg PO intake 56% x2d. INTERVENTION: Continue with current diet order of Regular diet. Pt may benefit from dysphagia diet, as pt has issues with chewing food. Add Ensure Enlive (vary) to meals TID, for increased kcal intake. Provides 350 kcal and 20 g Pro per serving. Will continue to follow and reassess as pt needs, intake, and status change. Hafsa Weeks, MS RD LD
[2020-08-31] MEDS ORDERED: LEVOFLOXACIN 250 MG TAB (LEVAQUIN) PO ONE (11:45)
[2020-08-31 12:00] VITALS: BP 115/76
[2020-08-31] MEDS ORDERED: SOD POLYSTERENE 15 GM/60 ML (KAYEXALATE) UNIT DOSE PO ONE (12:00)
--- NOTE | 2020-08-31 12:00 | Occupational Therapy Eval ---
OT Evaluation-General/PLF Medical Diagnosis Admission Date Aug 30, 2020 at 15:42 Medical Diagnosis: UTI, dehydration Onset Date: Aug 29, 2020 Therapy Diagnosis Therapy Diagnosis: decr self care, decr funct mobility, decr act trina Height/Weight Height (Feet): 5 Height (Inches): 0.00 Weight (Pounds): 123 Weight (Ounces): 0.0 Precautions Precautions/Isolations: Fall Prevention, Standard Precautions Referral Physician: Ana M Referral Reason: Evaluation/Treatment Medical History Pertinent Medical History: Arthritis, COPD, Fractures, GERD, HTN, Renal I nsufficiency, Thrombosis Additional Medical History Bilat TKA, R TH, L femur fx. O2 at night. Emphysema. DVT. Renal failure, chronic UTI. Hiatal hernia, ulcer. Osteoporosis. Glaucoma. YOMBA SHOSHONE. Anxiety, depression, sleep apnea. GI bleeds. Resting tremors Current History L tib-fib fx from several weeks ago, in splint from foot to thigh. Pt reported that she is no weight-bearing and hasn't been getting up - but not confirmed with [facility]-P. Admitted with altered mental status. Reviewed History: Yes Social History Home: Longterm ([facility]) ADL-Prior Level of Function SCALE: Activities may be completed with or without assistive devices. 0-Dheojqycqu-fpwogbf completes the activity by him/herself with no assistance from a helper. 5-Set-up or Clean-up Assistance-helper sets up or cleans up; patient completes activity. [place] assists only prior to or following the activity. 4-Supervision or Touching Assistance-helper provides verbal cues and/or touching/steadying and/or contact guard assistance as patient completes activity. Assistance may be provided throughout the activity or intermittently. 3-Partial/Moderate Assistance-helper does LESS THAN HALF the effort. [place] lifts, holds or supports trunk or limbs, but provides less than half the effort. 2-Substantial/Maximal Assistance-helper does MORE THAN HALF the effort. [place] lifts or holds trunk or limbs and provides more than half the effort. 5-Twvruxnqb-tniqww does ALL the effort. Patient does none of the effort to complete the activity. Or, the assistance of 2 or more helpers is required for the patient to complete the activity. If activity was not attempted, code reason: 7-Patient Refused. 9-Not Applicable-not attempted and the patient did not perform the activity before the current illness, exacerbation or injury. 10-Not Attempted due to Environmental Limitations-(lack of equipment, weather restraints, etc.). 88-Not Attempted due to Medical Conditions or Safety Concerns. ADL PLOF Comments Pt reported that she was previously able to manage dressing but had help to walk to the bathroom for toileting and grooming. She used a FWW. She said that s ometimes she has trouble feeding herself due to UE tremors but none were observed. She uses cups with covers and has not tried weighted silverware. Self Care: Needed Some Help OT Current Status Subjective Pt seen in room, up in bed, agreeable to OT. Pt reported pain 0/10. Appearance Alert, oriented to day of week but not date. Mental Status/Objective Attachments: Zarco Catheter, IV Current Glasses/Contacts: Yes (not here) Hearing Aids: Yes (doesn't use) Dentures/Partials: No (no teeth) Hand Dominance: Right Upper Extremity ROM Grossly WFL bilat Upper Extremity Strength Grossly 4/5 bilat ADL-Treatment ADL-Current Pt was able to get a drink from a cup with lid after some water was removed (due to weight of cup). Fill [place] marked on cup for her. No tremors observed. Drank better with standard straw that one that came with cup. Pt has Zarco and reported that she has not been out of bed to toilet. Reported she's wearing a diaper. Education OT Patient Education: Modified ADL techniques, Purpose of tx/functional activities, Rehab process Teaching Recipient: Patient Teaching Methods: Demonstration Response to Teaching: Return Demonstration, Reinforcement Needed OT Group Home Goals Brake Shoe Rebuilder Goals Time Frame: Sep 05, 2020 Eating (QC): 5 Oral Hygiene (QC): 5 Toileting Hygiene (QC): 2 Upper Body Dressing (QC): 5 Lower Body Dressing (QC): 3 Additional Goals: 1-Demonstrate ADL Tasks, 2-Verbalize Understanding, 3- ImproveStrength/Liliana 1=Demonstrate adherence to instructed precautions during ADL tasks. 2=Patient will verbalize/demonstrate understanding of assistive devices/modifications for ADL. 3=Patient will improve strength/tolerance for activity to enable patient to perform ADL's. OT Education/Plan Problem List/Assessment Assessment: Decreased Activ Tolerance, Decreased UE Strength, Dependent Transfers, Impaired Bed Mobility, Impaired Self-Care Skills Discharge Recommendations Plan/Recommendations: Continue POC Treatment Plan/Plan of Care Treatment,Training & Education: Yes Patient would benefit from OT for education, treatment and training to promote independence in ADL's, mobility, safety and/or upper extremity function for ADL's. Plan of Care: ADL Retraining, Functional Mobility, UE Funct Exercise/Act, UE Neuromus Re-Ed/Coord Treatment Duration: Sep 05, 2020 Frequency: 5 times per week Estimated Hrs Per Day: .25 hour per day Agreement: Yes Rehab Potential: Fair Time/GCodes Start Time: 11:25 Stop Time: 11:42 Total Time Billed (hr/min): 17 Billed Treatment Time visit, 17 minutes evaluation moderate intensity MERLIN RODNEY OT Aug 31, 2020 12:00
--- NOTE | 2020-08-31 12:00 | Progress Note - Hospitalist ---
Subjective HPI/CC On Admission Date Seen by Provider: Aug 31, 2020 Time Seen by Provider: 09:00 Pt is an 85yoCF with a PMH of GI bleeds, DVTs, multiple fractures most recently being 08/04/20 who presented to the ER due to confusion per the ER. Patient states that she has actually not been feeling well for a couple of weeks. They tested her from [employer] 3 days ago and it was negative. She had labs done then as well which revealed hyperkalemia and dehydration. She felt more weak today as well. She was thought to be altered by the [place] home staff but is at the baseline I know her from during our previous encounters and she actually remembers me from her visit in October. Subjective/Events-last exam She is feeling better. She has no complaints or concerns. She denies any fevers. She denies any trouble breathing. She denies any abdominal pain. She denies any nausea or vomiting. She has not had any blood in her stools. She has been constipated. Objective Exam Vital Signs Vital Signs Date Time Temp Pulse Resp B/P (MAP) Pulse Ox O2 Delivery O2 Flow Rate FiO2 08/31/20 08:00 Room Air 08/31/20 08:00 36.4 79 18 109/56 (73) 96 08/30/20 20:40 2.00 Capillary Refill : Less Than 3 SecondsLess Than 3 Seconds General Appearance: WD/WN, Chronically ill Respiratory: Lungs Clear, Normal Breath Sounds, No Respiratory Distress Cardiovascular: Regular Rate, Rhythm, No Murmur Gastrointestinal: Normal Bowel Sounds, Non Tender, Soft Extremity: Normal Inspection, Non Tender Neurologic/Psychiatric: Alert, Oriented x3, No Motor/Sensory Deficits, Normal Mood/Affect Skin: Normal Color, Warm/Dry Results/Procedures Lab Laboratory Tests 08/31/20 05:35 Patient resulted labs reviewed. Imaging: Reviewed Imaging Report Assessment/Plan Assessment and Plan Assess & Plan/Chief Complaint Pseudomonas UTI Urine culture revealed barros-sensitive Pseudomonas Stop Zosyn Begin oral Levaquin for 10-day total course PAUL on CKD Hyperkalemia Cr improved, likely at baseline K 5.3, slowly trending back up Low potassium diet Kayexalate Fluids Anemia Hgb trending down, 8 Check iron studies, B12, folate, occult blood Recent tib/fib fracture Repaired at OSH Unsure of weightbearing status- will resume PT when able Thrombocytopenia h/o HIT h/o GI bleed h/o VTE Will hold anticoagulation as patient reports she is not supposed to be on it This is high risk giving recent surgery and limited mobility status Unable to get CTA as well due to kidney function if she does become hypoxic Monitoring closely Diagnosis/Problems Diagnosis/Problems (1) UTI (urinary tract infection) Status: Acute Qualifiers: Urinary tract infection type: acute cystitis Hematuria presence: with hematuria Qualified Codes: N30.01 - Acute cystitis with hematuria (2) Acute kidney injury superimposed on chronic kidney disease Status: Acute (3) Anemia Status: Acute (4) Hyperkalemia Status: Acute (5) Closed fracture of distal end of left fibula and tibia Status: Acute (6) Thrombocytopenia Status: Acute (7) Debility Status: Acute Clinical Quality Measures DVT/VTE Risk/Contraindication: Risk Factor Score Per Nursin RFS Level Per Nursing on Admit: 4+=Very High VARGHESE TIMMONS MD Aug 31, 2020 12:00
--- NOTE | 2020-08-31 13:03 | NUR ---
Strong pastoral rapport established with the pt over the past several years she has resided at [facility]. The pt is Baptist and states she received Eucharist today from the hospital senior sales operations manager. This visit she engaged in life review and deep personal reflection around her ex 's unfaithfulness and the amish of her relationship with her daughter, Tasneem, before her unexpected last month. The pt requested prayer for her other daughter, Keiko, who is being tested for metastatic cancer. The pt describes values of honesty and kindness, and demonstrates resilience and forgiveness. The pt shared she was raised Baptist, and that her gurdeep and loved ones are her primary sources of strength.
[2020-08-31 16:00] VITALS: BP 96/59
--- NOTE | 2020-08-31 16:17 | NUR ---
CM/SS visited with the patient for discharge planning. Plan: Patient will return to [facility] at time of discharge. The patient may discharge back tomorrow 09/01. [facility]: The patient reports that she has been living at [facility] for the past year but has been there multiple times in the past. This most recent time she decided she was going to just stay there before of her frequent falls. CM/SS contacted Denise at the [facility] to inform her of possible discharge. Supports: The patient states that she has her daughter Keiko that she is close with. Keiko frequently calls the patient and assist with what she needs. No other family noted at this time. CM/SS will continue to follow.
[2020-08-31 19:48] VITALS: BP 117/59
[2020-09-01 00:32] VITALS: BP 114/62
[2020-09-01 04:00] VITALS: BP 130/64
[2020-09-01 05:19] VITALS: BP 130/64
[2020-09-01] MEDS: 1/2 NS IV SOLUTION 1,000 ML IV SCH (07:04)
[2020-09-01 08:00] VITALS: BP 125/58
[2020-09-01] MEDS: LACTOBACILLUS ACIDOPHILUS (PROBIOTIC) CAPSULE PO SCH ×2 (09:14→15:09)
[2020-09-01] MEDS: polyethylene glycoL POWDER 17 GM (MIRALAX) PACK PO PRN (09:15)
[2020-09-01 09:42] LABS: BASOPHILS % (AUTO) 1 % (0-10); LYMPHOCYTES % (AUTO) 31 % (12-44)
[2020-09-01 09:44] LABS: EOSINOPHILS # (AUTO) 0.4 10^3/uL (0.0-0.3); EOSINOPHILS % (AUTO) 8 % (0-10); HEMATOCRIT 30 % (35-52); HEMOGLOBIN 8.5 g/dL (11.5-16.0); LYMPHOCYTES # (AUTO) 1.4 10^3/uL (1.0-4.0); MEAN CORPUSCULAR HEMOGLOBIN 30 pg (25-34); MEAN CORPUSCULAR HGB CONC 29 g/dL (32-36); MEAN CORPUSCULAR VOLUME 105 fL (80-99); MEAN PLATELET VOLUME 11.8 fL (9.0-12.2); MONOCYTES # (AUTO) 0.3 10^3/uL (0.0-1.0); MONOCYTES % (AUTO) 7 % (0-12); NEUTROPHILS # (AUTO) 2.3 10^3/uL (1.8-7.8); NEUTROPHILS % (AUTO) 53 % (42-75); PLATELET COUNT 79 10^3/uL (130-400); WHITE BLOOD COUNT 4.4 10^3/uL (4.3-11.0)
[2020-09-01 09:59] LABS: CALCIUM 7.6 MG/DL (8.5-10.1); CREATININE SERUM 1.82 MG/DL (0.60-1.30); POTASSIUM 4.6 MMOL/L (3.6-5.0)
[2020-09-01] MEDS ORDERED: LEVO250T46 PO (10:02)
[2020-09-01] MEDS ORDERED: LEVOFLOXACIN 250 MG TAB (LEVAQUIN) PO SCH (11:00)
[2020-09-01 12:00] VITALS: BP 120/60
--- NOTE | 2020-09-01 12:00 | NUR ---
CM/SS finalized discharge. Plan: Patient will discharge today to [facility]. supervisor finish end time is 3:00 p.m. CM/SS contacted Denise from Facility to set up discharge. Plan for chicken picker at 3:00 p.m. CM/SS faxed discharge orders and updated labs. The patient's morse cath is being left in, per request of [facility] nurse. CM/SS updated the patient's nurse. CM/SS contacted the patient's daughter Keiko to discuss discharge. Keiko reports that she wants the patient to stay another day. This sw asked as to why she would need to. She stated that she "would just feel more comfortable" but would not elaborate. Keiko verbalized that she wanted to speak with the physician. CM/SS provided the physician with the phone number and explained conversation. Will continue to follow.
[2020-09-01 14:04] LABS: SMEAR SCAN COMMENT YES
--- NOTE | 2020-09-01 14:16 | Occupational Ther Daily Note ---
OT Current Status-Daily Note Subjective Pt laying in bed, agreeable to OT Tx at this time. Pt just got off the phone, stating her daughter is currently at an appointment to see if the daughter has brain cancer. Pt states she is ready to return to [facility] today, she is leaving around 3PM. Mental Status/Objective Patient Orientation: Person, Place, Time, Situation ADL-Treatment Therapy Code Descriptions/Definitions Functional [place] Measure: 0=Not Assessed/NA 4=Minimal Assistance 1=Total Assistance 5=Supervision or Setup 2=Maximal Assistance 6=Modified [place] 3=Moderate Assistance 7=Complete IndependenceSCALE: Activities may be completed with or without assistive devices. 0-Aunmxkkfsw-csdhlkm completes the activity by him/herself with no assistance from a helper. 5-Set-up or Clean-up Assistance-helper sets up or cleans up; patient completes activity. [place] assists only prior to or following the activity. 4-Supervision or Touching Assistance-helper provides verbal cues and/or touching/steadying and/or contact guard assistance as patient completes activity. Assistance may be provided throughout the activity or intermittently. 3-Partial/Moderate Assistance-helper does LESS THAN HALF the effort. [place] lifts, holds or supports trunk or limbs, but provides less than half the effort. 2-Substantial/Maximal Assistance-helper does MORE THAN HALF the effort. [place] lifts or holds trunk or limbs and provides more than half the effort. 1-Spdzykcus-xunlpm does ALL the effort. Patient does none of the effort to complete the activity. Or, the assistance of 2 or more helpers is required for the patient to complete the activity. If activity was not attempted, code reason: 7-Patient Refused. 9-Not Applicable-not attempted and the patient did not perform the activity before the current illness, exacerbation or injury. 10-Not Attempted due to Environmental Limitations-(lack of equipment, weather restraints, etc.). 88-Not Attempted due to Medical Conditions or Safety Concerns. Other Treatment Pt laying in bed, OT tx with focus on ADLs/IADLs of using phone and call light/remote. Pt asked for assistance with her cell phone. Pt indicates other staff have been unable to assist her due to being restricted on time. Pt's phone stuck on same screen when buttons are pressed, OT restarted pt's phone for her. Pt then able to push buttons on the phone and states it is working now. Pt asks for assistance calling [facility] [employer] [facility]. so she can talk to someone about her daughter picking up some money. OT assisted pt with dialing number, due to IV being in L arm and pt having difficulty navigating phone with just R hand. Pt then able to push call button and talk with [facility]. Pt states difficulty with navigating buttons to control TV with 1 hand (due to IV in L), OT assisted pt with turning TV on and locating channel. Pt expressed thankfulness for assistance. Post OT tx, pt laying in bed, call light in reach and all needs met. Education OT Patient Education: Correct positioning, Modified ADL techniques, Progress toward Goal/Update tx plan, Purpose of tx/functional activities Teaching Recipient: Patient Teaching Methods: Discussion Response to Teaching: Verbalize Understanding OT Seam Sewer Goals Seam Sewer Goals Time Frame: Sep 05, 2020 Eating (QC): 5 Oral Hygiene (QC): 5 Toileting Hygiene (QC): 2 Upper Body Dressing (QC): 5 Lower Body Dressing (QC): 3 Additional Goals: 1-Demonstrate ADL Tasks, 2-Verbalize Understanding, 3-ImproveStrength/Liliana 1=Demonstrate adherence to instructed precautions during ADL tasks. 2=Patient will verbalize/demonstrate understanding of assistive devices/modifications for ADL. 3=Patient will improve strength/tolerance for activity to enable patient to perform ADL's. OT Education/Plan Problem List/Assessment Assessment: Decreased Activ Tolerance, Decreased UE Strength, Impaired I ADL's, Impaired Self-Care Skills Discharge Recommendations Plan/Recommendations: Continue POC Treatment Plan/Plan of Care Patient would benefit from OT for education, treatment and training to promote independence in ADL's, mobility, safety and/or upper extremity function for ADL's. Plan of Care: ADL Retraining, Functional Mobility, UE Funct Exercise/Act, UE Neuromus Re-Ed/Coord Treatment Duration: Sep 05, 2020 Frequency: 5 times per week Estimated Hrs Per Day: .25 hour per day Agreement: Yes Rehab Potential: Fair Time/GCodes Start Time: 13:23 Stop Time: 13:35 Total Time Billed (hr/min): 12 Billed Treatment Time 1, ADL VIPIN PARK OT Sep 01, 2020 14:16
--- NOTE | 2020-09-01 14:54 | NUR ---
provided prayer and Communion.
[2020-09-01 17:06] VITALS: BP 125/58
== END 2020-09-01 15:50 | DRG 690 ==
LOC: EDUNIT# 10:38 → ER 10:39 → 4TH 12:40 → OBSVTOIN 08-30 15:42 → 4TH 08-31 12:27
PROVIDERS: ADMIT Family Medicine; ATTEND Internal Medicine
DX: N39.0 Urinary tract infection, site not specified (principal); N17.9 Acute kidney failure, unspecified; B96.5 Pseudomonas (aeruginosa) (mallei) (pseudomallei) as the cause of diseases classified elsewhere; E86.0 Dehydration; E87.5 Hyperkalemia; N18.9 Chronic kidney disease, unspecified; D64.9 Anemia, unspecified; D69.6 Thrombocytopenia, unspecified; Z87.81 Personal history of (healed) traumatic fracture; I12.9 Hypertensive chronic kidney disease with stage 1 through stage 4 chronic kidney disease, or unspecified chronic kidney disease; F41.9 Anxiety disorder, unspecified; F32.9 Major depressive disorder, single episode, unspecified; J43.9 Emphysema, unspecified; M19.90 Unspecified osteoarthritis, unspecified site; H40.9 Unspecified glaucoma; R77.8 Other specified abnormalities of plasma proteins
CPT/HCPCS: 36415; 51701; 70450; 71045; 80048; 80053; 81000; 82274; 82607; 82728; 82746; 83540; 84484; 85025; 85027; 86141; 87088; 87186; 93005; G0378

== ENCOUNTER 2020-12-19 21:43 | Emergency (ER) | payer MEDICARE, MEDICAID ==
[~2020-12-19] VITALS: Ht 153 cm; Wt 68.0 kg
[~2020-12-19 21:43] MED LIST changes: +BENZ-36 PO; +CALC-1026 PO; -CALC-664 PO; +CHOL500044 PO; +CNC1KV IM; +DOCU-143 PO; +ESCI20TA39 PO; -ESCI20TA45 PO; +HYDR28.480 TP; +HYDR28OI2 TP; +LEVO250T46 PO; -MONT10TA26 PO; +MONT10TA32 PO; +NYST60PO TP; +ONDN4T PO; -OXYC-471 PO; +OXYC1TAB11 PO; +OXYC1TAB12 PO; +PROM25VI IM; +PROM5SYR PO; +SALI45SP MM; +SODI30SP2 NS; +ZINC56CR2 TP; +[UNRECOGNIZED DRUG - CODE] IM
[2020-12-19] MEDS ORDERED: TETANUS,DIPTH,PERTUSS P/F (BOOSTRIX) 0.5 ML VIAL IM ONE (22:00)
--- NOTE | 2020-12-19 22:44 | ED Fall/Injury ---
General Chief Complaint: Trauma-Non Activation Stated Complaint: FALL Nursing Triage Note: fell getting out of chair, no loc, right posterior scalp bleeding approx. 1.5cm laceration. Source: patient, EMS Exam Limitations: no limitations History of Present Illness Date Seen by Provider: Dec 19, 2020 Location Injury Occurred: vcv Allergies and Home Medications Allergies Coded Allergies: adhesive tape (Verified Allergy, Mild, RASH, 08/29/20) aspirin (Verified Allergy, Unknown, 08/29/20) meperidine (Verified Allergy, Unknown, 08/29/20) nitrofurantoin (Verified Allergy, Unknown, 08/29/20) Uncoded Allergies: SURGICAL TAPE (Allergy, Unknown, 05/14/07) Home Medications Acetaminophen 325 Mg Tablet, 650 MG PO Q4H PRN for PAIN-MILD (1-4), (Reported) TAKES 2 (325MG) TABLETS Benzonatate 100 Mg Capsule, 100 MG PO Q8H PRN for COUGH, (Reported) Calcium Carbonate/Vitamin D3 1 Each Tablet, 1 TAB PO BID, (Reported) Cholecalciferol (Vitamin D3) 125 Mcg Tablet, 125 MCG PO DAILY, (Reported) Cyanocobalamin 1,000 Mcg/Ml Inj, 1,000 MCG IM Q MONTH, (Reported) Diclofenac Sodium 100 Gm Gel..gram., 1 GM TP Q4H PRN for JOINT PAIN, (Reported) WRISTS/KNEES Docusate Sodium 100 Mg Capsule, 100 MG PO BID PRN for CONSTIPATION-1ST LINE, (Reported) Ferrous Sulfate 325 Mg Tablet, 650 MG PO DAILY, (Reported) TAKES 2 (325MG) TABS Fesoterodine Fumarate 8 Mg Tab.er.24h, 8 MG PO HS, (Reported) Gabapentin 800 Mg Tablet, 800 MG PO HS, (Reported) Gabapentin 600 Mg Tablet, 600 MG PO BID, (Reported) Hydrocortisone 28.35 Gm Cream.appl, TOP QID PRN for HEMORRHOIDS, (Reported) Hydrocortisone Acetate 28 Gm Oint...g., 1 APPLIC TP DAILY, (Reported) APPLY TO EARS Levofloxacin 250 Mg Tablet, 250 MG PO DAILY@1100 Prescribed by: VARGHESE TIMMONS on 09/01/20 1002 Loratadine 10 Mg Capsule, 10 MG PO DAILY PRN for ALLERGY SYMPTOMS, (Reported) Loteprednol Etabonate 5 Gm Drops.gel, 1 DROP OD DAILY, (Reported) Magnesium Hydroxide 400 Mg/5 Ml Oral.susp, 15 ML PO BID PRN for CONSTIPATION-7TH LINE, (Reported) Meloxicam 7.5 Mg Tablet, 7.5 MG PO DAILY, (Reported) Morphine Sulfate 30 Mg Tablet.er, 30 MG PO BID, (Reported) Naloxegol Oxalate 25 Mg Tablet, 25 MG PO DAILY, (Reported) Nystatin 60 Gm Powder, 1 APPLIC TP TID PRN for YEAST INFECTION, (Reported) Ondansetron HCl 4 Mg Tab, 8 MG PO Q8H PRN for NAUSEA/VOMITING-1ST LINE, (Reported) Oxycodone HCl/Acetaminophen 1 Each Tablet, 1 TAB PO TID PRN for PAIN-MODERATE, (Reported) Pantoprazole Sodium 40 Mg Tablet.dr, 40 MG PO DAILY, (Reported) Polyethylene Glycol 3350 17 Gm Powd.pack, 17 GM PO DAILY, (Reported) Polyvinyl Alcohol/Povidone 15 Ml Drops, 1 DROP OU BID, (Reported) Polyvinyl Alcohol/Povidone 15 Ml Drops, 1 DROP OU Q4H PRN for DRY EYES, (Repor evans) Promethazine HCl 25 Mg Tablet, 25 MG PO Q8H PRN for NAUSEA/VOMITING, (Reported) Promethazine HCl 25 Mg/1 Ml Vial, 50 MG IM Q8H PRN for NAUSEA/VOMITING-2ND LINE, (Reported) Promethazine HCl/Codeine 5 Ml Syrup, 5 ML PO Q6H PRN for COUGH, (Reported) Saliva Stimulant Agents Comb.3 1 Each Fedora, 1 SPRAY MM BID, (Reported) Sodium Chloride 30 Ml Fedora, 1 SPRAY NS TID PRN for DRY NOSE, (Reported) Zinc Oxide 57 Gm Cream..g., 1 APPLIC TP Q12H PRN for REDNESS, (Reported) APPLY TO BUTTOCKS Past Cezdcrz-Maxjzj-Qgzljj Hx Patient Social History Alcohol Use: Denies Use Smoking Status: Never a Smoker 2nd Hand Smoke Exposure: No Recent Infectious Disease Expo: No Recent Hopitalizations: No Immunizations Up To Date Tetanus Booster (TDap): Less than 5yrs PED Vaccines UTD: No Date of Pneumonia Vaccine: Aug 31, 2017 Date of Influenza Vaccine: Jul 09, 2020 Seasonal Allergies Seasonal Allergies: No Past Medical History Surgeries: Yes (hiatal hernia, bilat hip sx, L TKR, L femur fx) Abdominal, Bowel Surgery, Gallbladder, Hysterectomy, Joint Replacement, Orthopedic, Vascular Surgery Respiratory: Yes (OXYGEN AT HS) COPD, Emphysema Cardiac: Yes Deep Vein Thrombosis, Hypertension Neurological: Yes : No 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 Genitourinary: Yes Renal Failure, UTI-Chronic Gastrointestinal: Yes (COLON RESECTION) Gastroesophageal Reflux, Hiatal Hernia, Ulcer Musculoskeletal: Yes (BILATERAL KNEES AND R HIP REPLACED AND BILATERAL FEMUR FX/ORIF'S ) Osteoporosis, Arthritis, Fractures Endocrine: No HEENT: Yes Glaucoma Hearing Impairment: Hard of Hearing Cancer: No Psychosocial: Yes Sleep Difficulties, Anxiety, Depression Integumentary: No Blood Disorders: Yes Adverse Reaction/Blood Tranf: Yes (Transfusion reaction with platelets 05/2019) Family Medical History Alcoholism 19 FATHER Cardiovascular disease 19 MOTHER Colon cancer 19 MOTHER Diabetes mellitus 19 MOTHER Neoplasm 19 MOTHER (colon ca w/ mets to liver ) Respiratory disorder 19 FATHER No Family History of: AIDS Abdominal aortic aneurysm Arthritis Asthma Dementia Drug abuse Hypertension Kidney disease Myocardial infarction Psychosocial problem Seizure disorder Severe allergy Thyroid disease Tuberculosis Cancer, Diabetes Physical Exam Vital Signs Vital Signs - First Documented 12/19/20 21:45 Temp 36.8 Pulse 79 Resp 18 B/P (MAP) 131/105 (114) Pulse Ox 96 O2 Delivery Room Air Capillary Refill : Less Than 3 Seconds Height, Weight, BMI Height: 5'0.00" Weight: 123lbs. 0.0oz. 55.214175nc; 29.00 BMI Method:Stated Progress/Results/Core Measures Results/Orders My Orders Orders - RONAK REYES MD Dipht,Pertuss(Acell),Tet Adult (Boostrix (12/19/20 22:00) Ct Head Wo (12/19/20 22:00) Medications Given in ED Current Medications Medications Dose Ordered Sig/Missael Route Start Time Stop Time Status Last Admin Dose Admin Diphtheria/ Tetanus/Acell Pertussis 0.5 ml ONCE ONCE IM 12/19/20 22:00 12/19/20 22:01 DC 12/19/20 22:09 0.5 ML Vital Signs/I&O 12/19/20 21:45 Temp 36.8 Pulse 79 Resp 18 B/P (MAP) 131/105 (114) Pulse Ox 96 O2 Delivery Room Air Blood Pressure Mean: 114 Departure Impression Primary Impression: Fall on same level Qualified Codes: W18.30XA - Fall on same level, unspecified, initial encounter Additional Impression: Scalp laceration Qualified Codes: S01.01XA - Laceration without foreign body of scalp, initial encounter Disposition: HOME, SELF-CARE Condition: Improved Departure-Patient Inst. Decision time for Depature: 22:43 Referrals: DILMA RAHMAN MD (PCP/Family) Primary Care Physician Patient Instructions: Laceration Repair With Stitches ED Add. Discharge Instructions: Monitor wound for signs of infection such as increasing redness, puslike drainage, or fever. Return to care if these are noted. Remove suture in about 7 days. Call with questions or concerns. Return to care with any worsening of symptoms. All discharge instructions reviewed with patient and/or family. Voiced understanding. ROANK REYES MD Dec 19, 2020 22:43
[2020-12-19 22:49] VITALS: BP 108/98
--- NOTE | 2020-12-20 06:28 | Diagnostic Imaging Report ---
PROCEDURE: CT head without contrast. TECHNIQUE: Multiple contiguous axial images were obtained through the brain without the use of intravenous contrast. Auto Exposure Controls were utilized during the CT exam to meet ALARA standards for radiation dose reduction. INDICATION: Fall, laceration to the back of head. EXAMINATION: CT brain without contrast 12/19/2020 COMPARISON: 08/29/2020 FINDINGS: Chronic ischemic disease is seen in a periventricular distribution with atrophy, age appropriate. There is no acute hemorrhage or infarct. There is no mass, mass effect or midline shift. No hydrocephalus. Calvarium is intact. Paranasal sinuses and mastoid air cells unremarkable for acute disease. IMPRESSION: 1. Chronic findings with no acute intracranial process. Findings agree with the preliminary report. Dictated by: Dictated on workstation # [id number]
== END 2020-12-19 23:25 | disposition home or self-care (01) ==
LOC: EDUNIT# 21:43 → ER 21:44
DX: S01.01XA Laceration without foreign body of scalp, initial encounter (principal); K21.9 Gastro-esophageal reflux disease without esophagitis; J44.9 Chronic obstructive pulmonary disease, unspecified; Z88.5 Allergy status to narcotic agent; Z88.8 Allergy status to other drugs, medicaments and biological substances; Z80.0 Family history of malignant neoplasm of digestive organs; Z83.3 Family history of diabetes mellitus; Z82.49 Family history of ischemic heart disease and other diseases of the circulatory system; Z23 Encounter for immunization; Z79.52 Long term (current) use of systemic steroids; W18.30XA Fall on same level, unspecified, initial encounter
CPT/HCPCS: 12001; 70450; 90715

== ENCOUNTER → 2021-08-21 | Outpatient (CLI) | payer MEDICARE, MEDICAID ==
[~2021-08-21] MED LIST changes: -OMEP40CA27 PO; +OMEP40CA6 PO; -SULF1TAB35 PO; +SULF1TAB38 PO
[2021-08-21 20:52] LABS: BILIRUBIN,URINE NEGATIVE (NEGATIVE); CLARITY,URINE CLEAR; COLOR,URINE YELLOW; GLUCOSE, URINE (UA) NEGATIVE (NEGATIVE); KETONES,URINE NEGATIVE (NEGATIVE); LEUKOCYTE ESTERASE ,URINE NEGATIVE (NEGATIVE); NITRITE,URINE NEGATIVE (NEGATIVE); PROTEIN,URINE NEGATIVE (NEGATIVE)
[2021-08-21 21:01] LABS: BACTERIA,URINE TRACE /HPF; HYALINE CASTS, URINE 0-2 /LPF; RBC,URINE 0-2 /HPF; SQUAMOUS EPITHELIAL CELL,UR 0-2 /HPF; WBC,URINE 0-2 /HPF
== END ==
LOC: CVS 20:44
PROVIDERS: ATTEND Internal Medicine
DX: Z01.89 Encounter for other specified special examinations (principal)
CPT/HCPCS: 81000

== ENCOUNTER 2022-08-05 12:09 | Outpatient (CLI) | payer MEDICARE, MEDICAID ==
[~2022-08-05] VITALS: Ht 152.4 cm; Wt 63.0 kg
[~2022-08-05 12:09] MED LIST changes: +CALC-192 PO; -CALC1TAB95 PO; -FLUO20CA46 PO; +FLUO20CA48 PO; -LEVO250T46 PO; +LEVO250T66 PO; +MONT-40 PO; -MONT10TA32 PO; +ONDA-106 PO; -ONDA8TAB15 PO
[2022-08-05 12:14] VITALS: BP 132/95
[2022-08-05 12:15] VITALS: BP 132/95
[2022-08-05] MEDS ORDERED: EPINEPHrine INJECTION 1 MG/ML AMP IM PRN (12:45)
[2022-08-05] MEDS ORDERED: ONDANSETRON 4 MG/2 ML (SDV) Z0FRAN IV PRN (12:45)
[2022-08-05] MEDS ORDERED: diphenhydrAMINE 50 MG/ML INJ (BENADRYL) IV PRN (12:45)
[2022-08-05] MEDS ORDERED: BEBTELOVIMAB 175 MG/2 ML VIAL IV ONE (12:45)
[2022-08-05] MEDS ORDERED: ACETAMINOPHEN 500 MG TAB (TYLENOL) PO PRN (12:45)
[2022-08-05 14:00] VITALS: BP 131/87
== END 2022-08-05 14:08 | disposition home or self-care (01) ==
LOC: INFUSION 12:09
PROVIDERS: ATTEND Physician Assistant
DX: U07.1 COVID-19 (principal)

== ENCOUNTER 2023-02-15 15:01 | Emergency (ER) | payer MEDICARE, OTHER, MEDICAID ==
[~2023-02-15] VITALS: Ht 152.4 cm; Wt 67.9 kg
--- NOTE | 2023-02-15 15:24 | ED Lower Extremity ---
General Chief Complaint: General Problems/Pain Stated Complaint: LEG SWOLLEN Nursing Triage Note: PT BROUGHT IN BY [facility] FROM [facility] WITH COMPLAINT OF LEFT LEG SWELLING AND SORE THROAT. STATES SWELLING STARTED 4 DAYS AGO. DENIES INJURY. Source: patient Exam Limitations: no limitations History of Present Illness Date Seen by Provider: February 15, 2023 Time Seen by Provider: 15:03 Initial Comments 87-year-old female presents via EMS from the [facility] for concerns of lower extremity edema. She states that both legs are swollen, but the left is much worse than the right. She states that the swelling started 4 days ago. She reports the left leg is painful to touch, mostly in the anterior lower leg. She denies history of previous DVT. She has limited mobility, she uses a wheelchair to get around, but is able to stand and pivot. She denies fevers, chest pain, shortness of air, abdominal pain, nausea, vomiting, diarrhea, active cancer. Allergies and Home Medications Allergies Coded Allergies: adhesive tape (Verified Allergy, Mild, RASH, 08/29/20) aspirin (Verified Allergy, Unknown, 08/29/20) meperidine (Verified Allergy, Unknown, 08/29/20) nitrofurantoin (Verified Allergy, Unknown, 08/29/20) Uncoded Allergies: SURGICAL TAPE (Allergy, Unknown, 05/14/07) Patient Home Medication List Home Medication List Reviewed: Yes Acetaminophen (Tylenol) 325 Mg Tablet, 650 MG PO Q4H PRN for PAIN-MILD (1-4), (Reported) Entered as Reported by: STEVEN CAMPOS on 09/02/19 0915 Apixaban (Eliquis) 2.5 Mg Tablet, 2.5 MG PO BID Prescribed by: Randa Jennings on 02/15/23 1749 Benzonatate (Benzonatate) 100 Mg Capsule, 100 MG PO Q8H PRN for COUGH, (Reported) Entered as Reported by: DELFINO VILLAGOMEZ on 08/29/20 1522 Calcium Carbonate/Vitamin D3 (Calcium 600 + Vit D3 Tablet) 1 Each Tablet, 1 TAB PO BID, (Reported) Entered as Reported by: STEVEN CAMPOS on 05/28/19 0940 Cholecalciferol (Vitamin D3) (Vitamin D3) 125 Mcg Tablet, 125 MCG PO DAILY, (Reported) Entered as Reported by: BECKY BISWAS on 08/31/20 0852 Cyanocobalamin (Cyanocobalamin Injection) 1,000 Mcg/Ml Inj, 1,000 MCG IM Q MONTH, (Reported) Entered as Reported by: DELFINO VILLAGOMEZ on 08/29/20 1519 Diclofenac Sodium (Voltaren) 100 Gm Gel..gram., 1 GM TP Q4H PRN for JOINT PAIN, (Reported) Entered as Reported by: DOREEN STARKEY on 09/26/16 1507 Docusate Sodium (Colace) 100 Mg Capsule, 100 MG PO BID PRN for CONSTIPATION-1ST LINE, (Reported) Entered as Reported by: DELFINO VILLAGOMEZ on 08/29/20 1516 Ferrous Sulfate (Ferrous Sulfate) 325 Mg Tablet, 650 MG PO DAILY, (Reported) Entered as Reported by: STEVEN CAMPOS on 09/02/19 0915 Fesoterodine Fumarate (Toviaz) 8 Mg Tab.er.24h, 8 MG PO HS, (Reported) Entered as Reported by: DELFINO VILLAGOMEZ on 08/29/20 1501 Gabapentin (Gabapentin) 800 Mg Tablet, 800 MG PO HS, (Reported) Entered as Reported by: ELVIA SARABIA on 12/09/19 1237 Gabapentin (Gabapentin) 600 Mg Tablet, 600 MG PO BID, (Reported) Entered as Reported by: ELVIA SARABIA on 12/09/19 1237 Hydrocortisone (Proctosol-Hc) 28.35 Gm Cream.appl, TOP QID PRN for HEMORRHOIDS, (Reported) Entered as Reported by: STEVEN CAMPOS on 05/07/18 1336 Hydrocortisone Acetate (Hydrocortisone) 28 Gm Oint...g., 1 APPLIC TP DAILY, (Reported) Entered as Reported by: BECKY BISWAS on 08/31/20 0852 Levofloxacin (Levofloxacin) 250 Mg Tablet, 250 MG PO DAILY@1100 Prescribed by: VARGHESE TIMMONS on 09/01/20 1002 Loratadine (Claritin) 10 Mg Capsule, 10 MG PO DAILY PRN for ALLERGY SYMPTOMS, (Reported) Entered as Reported by: DELFINO VILLAGOMEZ on 08/29/20 1520 Loteprednol Etabonate (Lotemax) 5 Gm Drops.gel, 1 DROP OD DAILY, (Reported) Entered as Reported by: DOREEN STARKEY on 09/26/16 1507 Magnesium Hydroxide (Milk of Magnesia) 400 Mg/5 Ml Oral.susp, 15 ML PO BID PRN for CONSTIPATION-7TH LINE, (Reported) Entered as Reported by: DELFINO VILLAGOMEZ on 08/29/20 1511 Meloxicam (Meloxicam) 7.5 Mg Tablet, 7.5 MG PO DAILY, (Reported) Entered as Reported by: ELVIA SARABIA on 12/09/19 1237 Morphine Sulfate (Morphine Sulfate ER) 30 Mg Tablet.er, 30 MG PO BID, (Reported) Entered as Reported by: JUDY GUARDADO on 10/12/19 1833 Naloxegol Oxalate (Movantik) 25 Mg Tablet, 25 MG PO DAILY, (Reported) Entered as Reported by: STEVEN CAMPOS on 05/28/19 0940 Nystatin (Nystop) 60 Gm Powder, 1 APPLIC TP TID PRN for YEAST INFECTION, (Reported) Entered as Reported by: DELFINO VILLAGOMEZ on 08/29/20 1508 Ondansetron HCl (Zofran) 4 Mg Tab, 8 MG PO Q8H PRN for NAUSEA/VOMITING-1ST LINE, (Reported) Entered as Reported by: DELFINO VILLAGOMEZ on 08/29/20 1503 Oxycodone HCl/Acetaminophen (Percocet 10-325 mg Tablet) 1 Each Tablet, 1 TAB PO TID PRN for PAIN-MODERATE, (Reported) Entered as Reported by: DELFINO VILLAGOMEZ on 08/29/20 1527 Pantoprazole Sodium (Pantoprazole Sodium) 40 Mg Tablet.dr, 40 MG PO DAILY, (Reported) Entered as Reported by: STEVEN CAMPOS on 05/28/19 0940 Polyethylene Glycol 3350 (Miralax) 17 Gm Powd.pack, 17 GM PO DAILY, (Reported) Entered as Reported by: STEVEN CAMPOS on 11/21/18 1110 Polyvinyl Alcohol/Povidone (Artificial Tears Drops) 15 Ml Drops, 1 DROP OU BID, (Reported) Entered as Reported by: STEVEN CAMPOS on 10/15/18 0933 Polyvinyl Alcohol/Povidone (Artificial Tears Drops) 15 Ml Drops, 1 DROP OU Q4H PRN for DRY EYES, (Reported) Entered as Reported by: DELFINO VILLAGOMEZ on 08/29/20 1526 Promethazine HCl (Promethazine Tablet) 25 Mg Tablet, 25 MG PO Q8H PRN for NAUSEA/VOMITING, (Reported) Entered as Reported by: ELVIA SARABIA on 12/09/19 1237 Promethazine HCl (Promethazine Vial) 25 Mg/1 Ml Vial, 50 MG IM Q8H PRN for NAUSEA/VOMITING-2ND LINE, (Reported) Entered as Reported by: BECKY BISWAS on 08/31/20 0852 Promethazine HCl/Codeine (Prometh-Codein 6.25-10 mg/5 ml) 5 Ml Syrup, 5 ML PO Q6H PRN for COUGH, (Reported) Entered as Reported by: DELFINO VILLAGOMEZ on 08/29/20 1500 Saliva Stimulant Agents Comb.3 (Biotene Moisturizing Mouth) 1 Each Bryan, 1 SPRAY MM BID, (Reported) Entered as Reported by: DELFINO VILLAGOMEZ on 08/29/20 1524 Sodium Chloride (Saline Nasal Bryan) 30 Ml Bryan, 1 SPRAY NS TID PRN for DRY NOSE, (Reported) Entered as Reported by: DELFINO VILLAGOMEZ on 08/29/20 1458 Zinc Oxide (Desitin) 57 Gm Cream..g., 1 APPLIC TP Q12H PRN for REDNESS, (Reported) Entered as Reported by: DELFINO VILLAGOMEZ on 08/29/20 1517 Review of Systems Constitutional: see HPI Past Aomzavw-Ltvjld-Yqlofr Hx Patient Social History Tobacco Use?: No Use of E-Cig and/or Vaping dev: No Substance use?: No Alcohol Use?: No Pt feels they are or have been: No Immunizations Up To Date Tetanus Booster (TDap): Less than 5yrs PED Vaccines UTD: No Seasonal Allergies Seasonal Allergies: No Past Medical History Surgeries: Yes (hiatal hernia, bilat hip sx, L TKR, L femur fx) Abdominal, Bowel Surgery, Gallbladder, Hysterectomy, Joint Replacement, Orthopedic, Vascular Surgery Respiratory: Yes (OXYGEN AT HS) COPD, Emphysema Cardiac: Yes Deep Vein Thrombosis, Hypertension Neurological: Yes 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 Genitourinary: Yes Renal Failure, UTI-Chronic Gastrointestinal: Yes (COLON RESECTION) Gastroesophageal Reflux, Hiatal Hernia, Ulcer Musculoskeletal: Yes (BILATERAL KNEES AND R HIP REPLACED AND BILATERAL FEMUR FX/ORIF'S ) Osteoporosis, Arthritis, Fractures Endocrine: No HEENT: Yes Glaucoma Hearing Impairment: Hard of Hearing Cancer: No Psychosocial: Yes Sleep Difficulties, Anxiety, Depression Integumentary: No Blood Disorders: Yes Adverse Reaction/Blood Tranf: Yes (Transfusion reaction with platelets 05/2019) Family Medical History Alcoholism 19 FATHER Cardiovascular disease 19 MOTHER Colon cancer 19 MOTHER Diabetes mellitus 19 MOTHER Neoplasm 19 MOTHER (colon ca w/ mets to liver ) Respiratory disorder 19 FATHER No Family History of: AIDS Abdominal aortic aneurysm Arthritis Asthma Dementia Drug abuse Hypertension Kidney disease Myocardial infarction Psychosocial problem Seizure disorder Severe allergy Thyroid disease Tuberculosis Cancer, Diabetes Physical Exam Vital Signs Vital Signs - First Documented 02/15/23 15:02 Pulse 79 Resp 14 B/P (MAP) 120/80 (93) Pulse Ox 98 O2 Delivery Room Air Capillary Refill : Less Than 3 Seconds Height, Weight, BMI Height: 5'0.00" Weight: 123lbs. 0.0oz. 55.921277jl; 29.00 BMI Method:Stated General Appearance: WD/WN, no apparent distress Neck: supple, normal inspection Cardiovascular: regular rate, rhythm Respiratory: lungs clear, normal breath sounds, no respiratory distress, no accessory muscle use Legs: left leg pain; bilateral leg swelling (pitting edema, entire legs swollen, left worse than right), bilateral leg other (Pitting edema, no erythema) Neurologic/Psychiatric: alert, normal mood/affect Skin: normal color, warm/dry Procedures/Interventions Suture Size: 4-0 Progress/Results/Core Measures Results/Orders Lab Results Laboratory Tests Test 02/15/23 16:44 Range/Units White Blood Count 4.8 4.3-11.0 10^3/uL Red Blood Count 4.11 3.80-5.11 10^6/uL Hemoglobin 13.4 11.5-16.0 g/dL Hematocrit 43 35-52 % Mean Corpuscular Volume 104 H 80-99 fL Mean Corpuscular Hemoglobin 33 25-34 pg Mean Corpuscular Hemoglobin Concent 31 L 32-36 g/dL Red Cell Distribution Width 14.1 10.0-14.5 % Platelet Count 87 L 130-400 10^3/uL Mean Platelet Volume 12.1 9.0-12.2 fL Immature Granulocyte % (Auto) 0 % Neutrophils (%) (Auto) 65 42-75 % Lymphocytes (%) (Auto) 23 12-44 % Monocytes (%) (Auto) 8 0-12 % Eosinophils (%) (Auto) 4 0-10 % Basophils (%) (Auto) 0 0-10 % Neutrophils # (Auto) 3.2 1.8-7.8 10^3/uL Lymphocytes # (Auto) 1.1 1.0-4.0 10^3/uL Monocytes # (Auto) 0.4 0.0-1.0 10^3/uL Eosinophils # (Auto) 0.2 0.0-0.3 10^3/uL Basophils # (Auto) 0.0 0.0-0.1 10^3/uL Immature Granulocyte # (Auto) 0.0 0.0-0.1 10^3/uL Percent Immature Platelet Fraction 8.7 H 0.0-7.6 % Sodium Level 142 135-145 MMOL/L Potassium Level 4.3 3.6-5.0 MMOL/L Chloride Level 103 98-107 MMOL/L Carbon Dioxide Level 29 21-32 MMOL/L Anion Gap 10 5-14 MMOL/L Blood Urea Nitrogen 44 H 7-18 MG/DL Creatinine 1.31 H 0.60-1.30 MG/DL Estimat Glomerular Filtration Rate 39 BUN/Creatinine Ratio 34 Glucose Level 91 70-105 MG/DL Calcium Level 9.3 8.5-10.1 MG/DL Corrected Calcium 10.3 H 8.5-10.1 MG/DL Total Bilirubin 0.4 0.1-1.0 MG/DL Aspartate Amino Transf (AST/SGOT) 19 5-34 U/L Alanine Aminotransferase (ALT/SGPT) 11 0-55 U/L Alkaline Phosphatase 96 40-136 U/L B-Type Natriuretic Peptide 530.1 H <100.0 PG/ML Total Protein 5.7 L 6.4-8.2 GM/DL Albumin 2.8 L 3.2-4.5 GM/DL Influenza Type A (RT-PCR) Not Detected Not Detecte Influenza Type B (RT-PCR) Not Detected Not Detecte SARS-CoV-2 RNA (RT-PCR) Not Detected Not Detecte Group A Streptococcus Screen NEGATIVE NEGATIVE Smear Scan YES Micro Results Microbiology 02/15/23 Throat Culture - Preliminary, Resulted My Orders Orders - RANDA JENNINGS MAKE UP GIRL Bnp Jomar (02/15/23 15:13) Cbc With Automated Diff (02/15/23 15:13) Comprehensive Metabolic Panel (02/15/23 15:13) Us Venous Lower Ext Aurora (02/15/23 15:13) Covid 19 Inhouse Test (02/15/23 15:24) Influenza A And B By Pcr (02/15/23 15:24) Rapid Strep A Screen (02/15/23 15:24) Throat Culture Strep A Confirm (02/15/23 16:44) Apixaban Tablet (Eliquis Tablet) (02/15/23 17:45) Vital Signs/I&O 02/15/23 02/15/23 15:02 18:22 Pulse 79 76 Resp 14 14 B/P (MAP) 120/80 (93) 125/78 Pulse Ox 98 98 O2 Delivery Room Air Room Air Blood Pressure Mean: 93 Progress Progress Note : Progress Note Patient seen and evaluated, resting comfortably in bed, no acute distress. Based on exam and symptoms, work-up initiated including CBC, CMP, BNP, ultr asound bilateral lower extremities. Labs and ultrasound reviewed. CBC shows decreased platelets 87, patient has history of thrombocytopenia. CMP shows elevated BUN 44, elevated creatinine 1.31, and decreased GFR 39. Patient has had decreased kidney function in the past. BNP elevated 530. US shows possible bilateral calf vein thrombus. Results discussed with patient. First dose of Eliquis ordered for here now. Will discharge with prescription for Eliquis 2.5 mg BID. Diagnostic Imaging Diagonstic Imaging: Ultrasound Plain Films/CT/US/NM/MRI: leg Comments [facility], [place] NAME: DORINA SEAMAN [facility] REC#: [id number] PT STATUS: DEP ER : [id number] PHYSICIAN: RANDA JENNINGS APRN ADMIT DATE: 02/15/23/ER Signed Date of Exam:02/15/23 US VENOUS LOWER EXT AURORA PROCEDURE: US Venous Lower Ext Aurora. TECHNIQUE: Multiple Real-time grayscale images were obtained over the lower extremities in various projections, bilaterally. Additional duplex Doppler and color Doppler images were also obtained. INDICATION: Bilateral lower extremity swelling. FINDINGS: Both common femoral, superficial femoral, and popliteal veins appear to be widely patent. Poor color flow is identified in the calf veins bilaterally. There appears to be thrombus within the calf veins bilaterally. No femoropopliteal thrombus is seen. No fluid collections are detected. IMPRESSION: Findings suggestive of bilateral calf vein thrombus. No femoropopliteal DVT is seen within either leg. Dictated by: Dictated on workstation # [id number] Dict: 02/15/23 1610 Trans: 02/16/23 0853 [id number] Interpreted by: MAGGIE VAZQUEZ MD Electronically signed by: MAGGIE VAZQUEZ MD 02/16/23 0853 Departure Impression Primary Impression: DVT (deep venous thrombosis) Qualified Codes: I82.463 - Acute embolism and thrombosis of calf muscular vein, bilateral Additional Impressions: Elevated brain natriuretic peptide (BNP) level Chronic kidney disease Qualified Codes: N18.9 - Chronic kidney disease, unspecified Thrombocytopenia Disposition: 01 HOME, SELF-CARE Condition: Stable Departure-Patient Inst. Decision time for Depature: 17:47 Referrals: DILMA RAHMAN MD (PCP/Family) Primary Care Physician Patient Instructions: Deep Vein Thrombosis (DVT) ED Add. Discharge Instructions: Take Eliquis twice daily as prescribed. Follow-up with your primary care provider within a week regarding your DVT and elevated BNP. Return for chest pain, shortness of air, or any other new, concerning, or worsening symptoms. All discharge instructions reviewed with patient and/or family. Voiced understanding. Scripts Apixaban (Eliquis) 2.5 Mg Tablet 2.5 MG PO BID for 30 Days, #60 TAB 0 Refills Prov: RANDA JENNINGS APRN 02/15/23 RANDA JENNINGS APRN February 15, 2023 15:24
--- NOTE | 2023-02-15 16:14 | Diagnostic Imaging Report ---
PROCEDURE: US Venous Lower Ext Ubaldo. TECHNIQUE: Multiple Real-time grayscale images were obtained over the lower extremities in various projections, bilaterally. Additional duplex Doppler and color Doppler images were also obtained. INDICATION: Bilateral lower extremity swelling. FINDINGS: Both common femoral, superficial femoral, and popliteal veins appear to be widely patent. Poor color flow is identified in the calf veins bilaterally. There appears to be thrombus within the calf veins bilaterally. No femoropopliteal thrombus is seen. No fluid collections are detected. IMPRESSION: Findings suggestive of bilateral calf vein thrombus. No femoropopliteal DVT is seen within either leg. Dictated by: Dictated on workstation # [id number]
[2023-02-15 16:52] LABS: HEMOGLOBIN 13.4 g/dL (11.5-16.0); PLATELET COUNT 87 10^3/uL (130-400)
[2023-02-15 16:54] LABS: BASOPHILS % (AUTO) 0 % (0-10); EOSINOPHILS # (AUTO) 0.2 10^3/uL (0.0-0.3); EOSINOPHILS % (AUTO) 4 % (0-10); HEMATOCRIT 43 % (35-52); LYMPHOCYTES # (AUTO) 1.1 10^3/uL (1.0-4.0); LYMPHOCYTES % (AUTO) 23 % (12-44); MEAN CORPUSCULAR HEMOGLOBIN 33 pg (25-34); MEAN CORPUSCULAR HGB CONC 31 g/dL (32-36); MEAN CORPUSCULAR VOLUME 104 fL (80-99); MEAN PLATELET VOLUME 12.1 fL (9.0-12.2); MONOCYTES # (AUTO) 0.4 10^3/uL (0.0-1.0); MONOCYTES % (AUTO) 8 % (0-12); NEUTROPHILS # (AUTO) 3.2 10^3/uL (1.8-7.8); NEUTROPHILS % (AUTO) 65 % (42-75); WHITE BLOOD COUNT 4.8 10^3/uL (4.3-11.0)
[2023-02-15 17:03] LABS: ALBUMIN 2.8 GM/DL (3.2-4.5); POTASSIUM 4.3 MMOL/L (3.6-5.0)
[2023-02-15 17:04] LABS: CALCIUM 9.3 MG/DL (8.5-10.1)
[2023-02-15 17:05] LABS: TOTAL PROTEIN 5.7 GM/DL (6.4-8.2)
[2023-02-15 17:07] LABS: BILIRUBIN,TOTAL 0.4 MG/DL (0.1-1.0)
[2023-02-15 17:09] LABS: CREATININE SERUM 1.31 MG/DL (0.60-1.30)
[2023-02-15 17:21] LABS: SMEAR SCAN COMMENT YES
[2023-02-15] MEDS ORDERED: APIXABAN 2.5 MG (ELIQUIS) TABLET PO ONE (17:45)
[2023-02-15] MEDS ORDERED: APIX2.5T PO (17:49)
[2023-02-15 18:22] VITALS: BP 125/78
== END 2023-02-15 18:24 | disposition home or self-care (01) ==
LOC: EDUNIT# 15:01 → ER 15:02
DX: I82.4Z3 Acute embolism and thrombosis of unspecified deep veins of distal lower extremity, bilateral (principal); D69.6 Thrombocytopenia, unspecified; I12.9 Hypertensive chronic kidney disease with stage 1 through stage 4 chronic kidney disease, or unspecified chronic kidney disease; N18.9 Chronic kidney disease, unspecified; R79.89 Other specified abnormal findings of blood chemistry; Z96.653 Presence of artificial knee joint, bilateral; Z96.641 Presence of right artificial hip joint; Z20.822 Contact with and (suspected) exposure to COVID-19
CPT/HCPCS: 36415; 80053; 83880; 85025; 87430; 87636; 93970

== ENCOUNTER 2023-03-15 17:36 | Inpatient (IN) | payer MEDICARE, OTHER, MEDICAID ==
[~2023-03-15] VITALS: Ht 152.4 cm; Wt 81.0 kg
[~2023-03-15 17:36] MED LIST changes: +APIX2.5T PO
[2023-03-15] MEDS ORDERED: LIDOCAINE UROJET 2% GEL 10 ML PKG TOP ONE (18:00)
--- NOTE | 2023-03-15 18:07 | ED General ---
General Chief Complaint: General Problems/Pain Stated Complaint: WEAKNESS Source of Information: Patient (POOR HISTORIAN), Senior Care Records, Old Records History of Present Illness Date Seen by Provider: Mar 15, 2023 Time Seen by Provider: 17:55 Initial Comments PT ARRIVES VIA EMS FROM [facility] C/O GENERALIZED WEAKNESS X 1 WEEK PT WITH KNOWN DVT'S OF BILATERAL CALF VEINS, DX 02/15/23-ON ELIQUIS, C/O LEFT LEG PAIN OF UNKNOWN DURATION NO OTHER SYMPTOMS BY PT PT WITH CHRONIC GENERALIZED WEAKNESS, ESSENTIALLY WHEELCHAIR BOUND, ABLE TO STAND FOR TRANSFERS, ACCORDING TO PRIOR RECORDS. PT WITH CHRONIC GENERALIZED PAIN AND IS ON OXYCODONE, MORPHINE AND GABAPENTIN DAILY PCP: DR. LYONS Allergies and Home Medications Allergies Coded Allergies: adhesive tape (Verified Allergy, Mild, RASH, 08/29/20) aspirin (Verified Allergy, Unknown, 08/29/20) meperidine (Verified Allergy, Unknown, 08/29/20) nitrofurantoin (Verified Allergy, Unknown, 08/29/20) Uncoded Allergies: SURGICAL TAPE (Allergy, Unknown, 05/14/07) Patient Home Medication List Home Medication List Reviewed: Yes Acetaminophen (Tylenol) 325 Mg Tablet, 650 MG PO Q4H PRN for PAIN-MILD (1-4), (Reported) Entered as Reported by: STEVEN CAMPOS on 09/02/19 0915 Apixaban (Eliquis) 2.5 Mg Tablet, 2.5 MG PO BID Prescribed by: Randa Cohn on 02/15/23 1749 Benzonatate (Benzonatate) 100 Mg Capsule, 100 MG PO Q8H PRN for COUGH, (Reported) Entered as Reported by: DELFINO VILLAGOMEZ on 08/29/20 1522 Calcium Carbonate/Vitamin D3 (Calcium 600 + Vit D3 Tablet) 1 Each Tablet, 1 TAB PO BID, (Reported) Entered as Reported by: STEVEN CAMPOS on 05/28/19 0940 Cholecalciferol (Vitamin D3) (Vitamin D3) 125 Mcg Tablet, 125 MCG PO DAILY, ( Reported) Entered as Reported by: BECKY BISWAS on 08/31/20 0852 Cyanocobalamin (Cyanocobalamin Injection) 1,000 Mcg/Ml Inj, 1,000 MCG IM Q MONTH, (Reported) Entered as Reported by: DELFINO VILLAGOMEZ on 08/29/20 1519 Diclofenac Sodium (Voltaren) 100 Gm Gel..gram., 1 GM TP Q4H PRN for JOINT PAIN, (Reported) Entered as Reported by: DOREEN STARKEY on 09/26/16 1507 Docusate Sodium (Colace) 100 Mg Capsule, 100 MG PO BID PRN for CONSTIPATION-1ST LINE, (Reported) Entered as Reported by: DELFINO VILLAGOMEZ on 08/29/20 1516 Ferrous Sulfate (Ferrous Sulfate) 325 Mg Tablet, 650 MG PO DAILY, (Reported) Entered as Reported by: STEVEN CAMPOS on 09/02/19 0915 Fesoterodine Fumarate (Toviaz) 8 Mg Tab.er.24h, 8 MG PO HS, (Reported) Entered as Reported by: DELFINO VILLAGOMEZ on 08/29/20 1501 Gabapentin (Gabapentin) 800 Mg Tablet, 800 MG PO HS, (Reported) Entered as Reported by: ELVIA SARABIA on 12/09/19 1237 Gabapentin (Gabapentin) 600 Mg Tablet, 600 MG PO BID, (Reported) Entered as Reported by: ELVIA SARABIA on 12/09/19 1237 Hydrocortisone (Proctosol-Hc) 28.35 Gm Cream.appl, TOP QID PRN for HEMORRHOIDS, (Reported) Entered as Reported by: STEVEN CAMPOS on 05/07/18 1336 Hydrocortisone Acetate (Hydrocortisone) 28 Gm Oint...g., 1 APPLIC TP DAILY, (Reported) Entered as Reported by: BECKY BISWAS on 08/31/20 0852 Levofloxacin (Levofloxacin) 250 Mg Tablet, 250 MG PO DAILY@1100 Prescribed by: VARGHESE TIMMONS on 09/01/20 1002 Loratadine (Claritin) 10 Mg Capsule, 10 MG PO DAILY PRN for ALLERGY SYMPTOMS, (Reported) Entered as Reported by: DELFINO VILLAGOMEZ on 08/29/20 1520 Loteprednol Etabonate (Lotemax) 5 Gm Drops.gel, 1 DROP OD DAILY, (Reported) Entered as Reported by: DOREEN STARKEY on 09/26/16 1507 Magnesium Hydroxide (Milk of Magnesia) 400 Mg/5 Ml Oral.susp, 15 ML PO BID PRN for CONSTIPATION-7TH LINE, (Reported) Entered as Reported by: DELFINO VILLAGOMEZ on 08/29/20 1511 Meloxicam (Meloxicam) 7.5 Mg Tablet, 7.5 MG PO DAILY, (Reported) Entered as Reported by: ELVIA SARABIA on 12/09/19 1237 Morphine Sulfate (Morphine Sulfate ER) 30 Mg Tablet.er, 30 MG PO BID, (Reported) Entered as Reported by: JUDY GUARDADO on 10/12/19 1833 Naloxegol Oxalate (Movantik) 25 Mg Tablet, 25 MG PO DAILY, (Reported) Entered as Reported by: STEVEN CAMPOS on 05/28/19 0940 Nystatin (Nystop) 60 Gm Powder, 1 APPLIC TP TID PRN for YEAST INFECTION, (Reported) Entered as Reported by: DELFINO VILLAGOMEZ on 08/29/20 1508 Ondansetron HCl (Zofran) 4 Mg Tab, 8 MG PO Q8H PRN for NAUSEA/VOMITING-1ST LINE, (Reported) Entered as Reported by: DELFINO VILLAGOMEZ on 08/29/20 1503 Oxycodone HCl/Acetaminophen (Percocet 10-325 mg Tablet) 1 Each Tablet, 1 TAB PO TID PRN for PAIN-MODERATE, (Reported) Entered as Reported by: DELFINO VILLAGOMEZ on 08/29/20 1527 Pantoprazole Sodium (Pantoprazole Sodium) 40 Mg Tablet.dr, 40 MG PO DAILY, (Reported) Entered as Reported by: STEVEN CAMPOS on 05/28/19 0940 Polyethylene Glycol 3350 (Miralax) 17 Gm Powd.pack, 17 GM PO DAILY, (Reported) Entered as Reported by: STEVEN CAMPOS on 11/21/18 1110 Polyvinyl Alcohol/Povidone (Artificial Tears Drops) 15 Ml Drops, 1 DROP OU BID, (Reported) Entered as Reported by: STEVEN CAMPOS on 10/15/18 0933 Polyvinyl Alcohol/Povidone (Artificial Tears Drops) 15 Ml Drops, 1 DROP OU Q4H PRN for DRY EYES, (Reported) Entered as Reported by: DELFINO VILLAGOMEZ on 08/29/20 1526 Promethazine HCl (Promethazine Tablet) 25 Mg Tablet, 25 MG PO Q8H PRN for NAUSEA/VOMITING, (Reported) Entered as Reported by: ELVIA SARABIA on 12/09/19 1237 Promethazine HCl (Promethazine Vial) 25 Mg/1 Ml Vial, 50 MG IM Q8H PRN for NAUSEA/VOMITING-2ND LINE, (Reported) Entered as Reported by: BECKY BISWAS on 08/31/20 0852 Promethazine HCl/Codeine (Prometh-Codein 6.25-10 mg/5 ml) 5 Ml Syrup, 5 ML PO Q6H PRN for COUGH, (Reported) Entered as Reported by: DELFINO VILLAGOMEZ on 08/29/20 1500 Saliva Stimulant Agents Comb.3 (Biotene Moisturizing Mouth) 1 Each [place], 1 SPRAY MM BID, (Reported) Entered as Reported by: DELFINO VILLAGOMEZ on 08/29/20 1524 Sodium Chloride (Saline Nasal [place]) 30 Ml [place], 1 SPRAY NS TID PRN for DRY NOSE, (Reported) Entered as Reported by: DELFINO VILLAGOMEZ on 08/29/20 1458 Zinc Oxide (Desitin) 57 Gm Cream..g., 1 APPLIC TP Q12H PRN for REDNESS, (Reported) Entered as Reported by: DELFINO VILLAGOMEZ on 08/29/20 1517 Review of Systems Review of Systems Constitutional: see HPI, malaise, weakness Musculoskeletal: see HPI Past Tatwjth-Wzbkpz-Nsemqi Hx Immunizations Up To Date Tetanus Booster (TDap): Less than 5yrs PED Vaccines UTD: No Seasonal Allergies Seasonal Allergies: No Past Medical History Surgeries: Yes (hiatal hernia, bilat hip sx, L TKR, L femur fx) Abdominal, Bowel Surgery, Gallbladder, Hysterectomy, Joint Replacement, Orthopedic, Vascular Surgery Respiratory: Yes (OXYGEN AT HS) COPD, Emphysema Cardiac: Yes (BILAT DVT'S 02/15/23) Atrial Fibrillation, Deep Vein Thrombosis, Hypertension, Irregular Heartbeat Neurological: Yes 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 Disorders: 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 Genitourinary: Yes (NO DIALYSIS) Renal Failure, UTI-Chronic Gastrointestinal: Yes (COLON RESECTION) Gastroesophageal Reflux, Hiatal Hernia, Ulcer Musculoskeletal: Yes (BILATERAL KNEES & R HIP REPLACED & BILATERAL FEMUR FX/ORIF'S;FREQ FALLS;WC ) Osteoporosis, Arthritis, Fractures Endocrine: No HEENT: Yes Glaucoma Hearing Impairment: Hard of Hearing Cancer: No Psychosocial: Yes Sleep Difficulties, Anxiety, Depression Integumentary: No Blood Disorders: Yes Adverse Reaction/Blood Tranf: Yes (Transfusion reaction with platelets 05/2019) Family Medical History Alcoholism 19 FATHER Cardiovascular disease 19 MOTHER Colon cancer 19 MOTHER Diabetes mellitus 19 MOTHER Neoplasm 19 MOTHER (colon ca w/ mets to liver ) Respiratory disorder 19 FATHER No Family History of: AIDS Abdominal aortic aneurysm Arthritis Asthma Dementia Drug abuse Hypertension Kidney disease Myocardial infarction Psychosocial problem Seizure disorder Severe allergy Thyroid disease Tuberculosis Cancer, Diabetes Physical Exam Vital Signs Vital Signs - First Documented Capillary Refill : Height, Weight, BMI Height: 5'0.00" Weight: 123lbs. 0.0oz. 55.818629xz; 29.00 BMI Method:Stated General Appearance: No Apparent Distress, WD/WN HEENT: Other (EDENTULOUS) Neck: Normal Inspection Respiratory: Normal Breath Sounds, No Accessory Muscle Use, No Respiratory Distress Cardiovascular: No Murmur, Irregularly Irregular Gastrointestinal: Non Tender, Soft Extremity: Normal Capillary Refill, Other (BOTH LEGS WITH SIGNIFICANT EDEMA, AND CHRONIC VENOUS STASIS CHANGES. NO EVIDENCE OF CELLULITIS. NO OPEN WOUNDS NOTED. 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 NO WOUNDS. NO OBVIOUS MASSES, QUESTIONABLE SLIGHT DIMPLING OF SKIN ABOVE THE NIPPLE. NO DISCHARGE FROM NIPPLE OR INVERSION OF NIPPLE) Focused Exam Sepsis Stage: Ruled Out Reason for ruling out sepsis: DOES NOT MEET CRITERIA Possible Source: Skin/Soft Tissue Lactate Level 03/15/23 18:13: Lactic Acid Level 1.05 Time of Focused Exam: 19:00 Respiratory: Normal Breath Sounds, No Accessory Muscle Use, No Respiratory Distress Cardiovascular: Regular Rate, Rhythm, No Murmur Capillary Refill: Less Than 3 Seconds Skin: normal color, warm/dry Lactic Acid Level Laboratory Tests Test 03/15/23 18:13 Lactic Acid Level 1.05 MMOL/L (0.50-2.00) Within 3hrs of presentation: Admin fluids, Admin ABX, Blood cultures prior to ABX's, Focus exam, Lactate level Procedures/Interventions Suture Size: 4-0 Progress/Results/Core Measures Suspected Sepsis SIRS Temperature: Pulse: Respiratory Rate: Laboratory Tests 03/15/23 18:02: White Blood Count 10.9 Blood Pressure / Mean: 03/15/23 18:13: Lactic Acid Level 1.05 Laboratory Tests 03/15/23 18:02: Creatinine 1.55H, INR Comment 1.8H, Platelet Count 73L, Total Bilirubin 0.6 Results/Orders Lab Results Laboratory Tests Test 03/15/23 18:02 03/15/23 18:09 03/15/23 18:13 03/15/23 18:26 Range/Units White Blood Count 10.9 4.3-11.0 10^3/uL Red Blood Count 4.58 3.80-5.11 10^6/uL Hemoglobin 14.7 11.5-16.0 g/dL Hematocrit 48 35-52 % Mean Corpuscular Volume 104 H 80-99 fL Mean Corpuscular Hemoglobin 32 25-34 pg Mean Corpuscular Hemoglobin Concent 31 L 32-36 g/dL Red Cell Distribution Width 14.5 10.0-14.5 % Platelet Count 73 L 130-400 10^3/uL Mean Platelet Volume 13.4 H 9.0-12.2 fL Immature Granulocyte % (Auto) 0 % Neutrophils (%) (Auto) 82 H 42-75 % Lymphocytes (%) (Auto) 13 12-44 % Monocytes (%) (Auto) 5 0-12 % Eosinophils (%) (Auto) 0 0-10 % Basophils (%) (Auto) 0 0-10 % Neutrophils # (Auto) 8.9 H 1.8-7.8 10^3/uL Lymphocytes # (Auto) 1.4 1.0-4.0 10^3/uL Monocytes # (Auto) 0.5 0.0-1.0 10^3/uL Eosinophils # (Auto) 0.0 0.0-0.3 10^3/uL Basophils # (Auto) 0.0 0.0-0.1 10^3/uL Immature Granulocyte # (Auto) 0.0 0.0-0.1 10^3/uL Percent Immature Platelet Fraction 15.3 H 0.0-7.6 % Prothrombin Time 21.1 H 12.2-14.7 SEC INR Comment 1.8 H 0.8-1.4 Activated Partial Thromboplast Time 34 24-35 SEC Sodium Level 144 135-145 MMOL/L Potassium Level 4.4 3.6-5.0 MMOL/L Chloride Level 107 98-107 MMOL/L Carbon Dioxide Level 28 21-32 MMOL/L Anion Gap 9 5-14 MMOL/L Blood Urea Nitrogen 42 H 7-18 MG/DL Creatinine 1.55 H 0.60-1.30 MG/DL Estimat Glomerular Filtration Rate 32 BUN/Creatinine Ratio 27 Glucose Level 110 H 70-105 MG/DL Calcium Level 8.4 L 8.5-10.1 MG/DL Corrected Calcium 9.6 8.5-10.1 MG/DL Magnesium Level 1.8 1.6-2.4 MG/DL Total Bilirubin 0.6 0.1-1.0 MG/DL Aspartate Amino Transf (AST/SGOT) 42 H 5-34 U/L Alanine Aminotransferase (ALT/SGPT) 21 0-55 U/L Alkaline Phosphatase 94 40-136 U/L Total Protein 5.4 L 6.4-8.2 GM/DL Albumin 2.5 L 3.2-4.5 GM/DL TSH [place] Testing 1.82 0.35-4.94 UIU/ML Smear Scan Influenza Type A (RT-PCR) Not Detected Not Detecte Influenza Type B (RT-PCR) Not Detected Not Detecte SARS-CoV-2 RNA (RT-PCR) Not Detected Not Detecte Lactic Acid Level 1.05 0.50-2.00 MMOL/L Urine Color YELLOW Urine Clarity CLEAR Urine pH 5.5 5-9 Urine Specific Mckenna 1.020 1.016-1.022 Urine Protein NEGATIVE NEGATIVE Urine Glucose (UA) NEGATIVE NEGATIVE Urine Ketones NEGATIVE NEGATIVE Urine Nitrite NEGATIVE NEGATIVE Urine Bilirubin NEGATIVE NEGATIVE Urine Urobilinogen 1.0 < = 1.0 MG/DL Urine Leukocyte Esterase NEGATIVE NEGATIVE Urine RBC (Auto) NEGATIVE NEGATIVE Urine RBC 0-2 /HPF Urine WBC NONE /HPF Urine Squamous Epithelial Cells 0-2 /HPF Urine Crystals PRESENT H /LPF Urine Amorphous Sediment FEW GERMAN URATES H /LPF Urine Bacteria TRACE /HPF Urine Casts PRESENT /LPF Urine Hyaline Casts 2-5 H /LPF Urine Mucus MODERATE H /LPF Urine Culture Indicated NO My Orders Orders - AMANDA AMBROCIO DO Ed Iv/Invasive Line Start (03/15/23 17:57) Ekg Tracing (03/15/23 17:57) Catheter(Urinary) Insert & Ass 03,15 (03/15/23 17:57) O2 (03/15/23 17:57) Monitor-Rhythm Ecg Trace Only (03/15/23 17:57) Cbc With Automated Diff (03/15/23 17:57) Comprehensive Metabolic Panel (03/15/23 17:57) Lactic Acid Analyzer (03/15/23 17:57) Magnesium (03/15/23 17:57) Protime With Inr (03/15/23 17:57) Partial Thromboplastin Time (03/15/23 17:57) Thyroid Analyzer (03/15/23 17:57) Ua Culture If Indicated (03/15/23 17:57) Chest 1 View, Ap/Pa Only (03/15/23 17:57) Covid 19 Inhouse Test (03/15/23 17:57) Lidocaine 2% (Urojet) (Xylocaine Urojet) (03/15/23 18:00) Influenza A And B By Pcr (03/15/23 17:57) Blood Culture (03/15/23 18:08) Urine Culture (03/15/23 18:08) Ed Iv/Invasive Line Start (03/15/23 18:08) Vital Signs Adult Sepsis Patie Q15M (03/15/23 18:08) O2 (03/15/23 18:08) Remove Rings In Anticipation O (03/15/23 18:08) Ed Iv/Invasive Line Start (03/15/23 18:08) Lactated Ringers (Lr 1000 Ml Iv Solution (03/15/23 18:15) Piperacillin Sodium/Tazobactam (Zosyn Vi (03/15/23 18:15) Code/Resuscitation (03/15/23 19:12) Ed Admission (Communication) (03/15/23 19:12) Ed Iv/Invasive Line Start (03/15/23 19:12) Lactated Ringers (Lr 1000 Ml Iv Solution (03/15/23 19:15) Medications Given in ED Vital Signs/I&O 03/15/23 03/15/23 03/15/23 17:36 17:36 20:04 Temp 36.0 37.0 Pulse 91 75 Resp 15 16 B/P (MAP) 112/92 (99) 107/65 Pulse Ox 100 100 100 O2 Delivery Nasal Cannula Nasal Cannula Nasal Cannula O2 Flow Rate 2.00 2.00 2.00 03/16/23 00:00 Intake Total 100 ml Balance 100 ml Capillary Refill : Progress Note : Progress Note SEPSIS PROTOCOL INITIATED GIVEN: -IV FLUIDS -ANTIBIOTICS NO DETERIORATION IN PT'S CONDITION DURING ER STAY VITALS STABLE, AFEBRILE PERTINENT LABS: CBC: WBC: 10.2, HGB 14.7 PLT 73,000 CMP: BUN 42, CR 1.55. ALB 2.5 PT/PTT/INR 21.1/34/1.8 UA CLEAR EKG DOES NOT SHOW ACUTE CHANGES CXR DOES NOT SHOW ACUTE CHANGES PT IS DNR DISCUSSED TEST RESULTS AND NEED FOR ADMIT AND PT IS AGREEABLE TO PLAN. SHE STATES THAT IT HAS "BEEN A LONG TIME" SINCE SHE HAD A MAMMOGRAM. ON REVIEW OF PRIOR RECORDS, LAST MAMMOGRAM HERE WAS 09/08/2017 WITH UNCHANGED BENIGN FINDINGS. REVIEWED FDC PAPERS, PRIOR VISITS INCLUDING ER VISITS, ADMITS/H&P'S/CONSULTS/DISCHARGE SUMMARIES, TESTS/PROCEDURES ECG Initial ECG Impression Date: Mar 15, 2023 Initial ECG Impression Time: 18:13 Initial ECG Rate: 89 Initial ECG Rhythm: A Fib/Flutter Initial ECG Intervals DC--N/A QRS 81 QT/QTC 226/272 Initial ECG Impression: Nonspecific Changes (FLATTENED T-WAVES, LOW VOLTAGE), Atrial Fibrillation Comment INTERPRETED BY ME Diagnostic Imaging Comments CXR--PER RADIOLOGIST REPORT AT 1847 FINDINGS: Heart size and mediastinal contours are unchanged. There is no identified pneumothorax. There is elevation of the left hemidiaphragm. There is no identified focal airspace consolidation. There are prior kyphoplasty changes. There is note of an inferior vena cava filter. IMPRESSION: No identified acute cardiopulmonary abnormality. Reviewed: Reviewed by Me Departure Communication (Admissions) 1908--SPOKE WITH DR. CALLEJAS, HOSPITALIST, ACCEPTS PT FOR ADMIT. SHE WILL DO ADMIT ORDERS. Impression Primary Impression: Cellulitis of left breast Additional Impressions: Acute kidney injury superimposed on chronic kidney disease Deep vein thrombosis of bilateral lower extremities Chronic pain Impaired mobility Frequent falls COPD O2 DEPENDENT HTN (hypertension) Disposition: ADMITTED INPATIENT Condition: Stable Admissions Decision to Admit Reason: Admit from ER (General) Decision to Admit/Date: Mar 15, 2023 Time/Decision to Admit Time: 19:10 Departure-Patient Inst. Referrals: NO,LOCAL PHYSICIAN (PCP/Family) Primary Care Physician AMANDA AMBROCIO DO Mar 15, 2023 18:06
[2023-03-15 18:09] LABS: EOSINOPHILS % (AUTO) 0 % (0-10); HEMOGLOBIN 14.7 g/dL (11.5-16.0); MEAN CORPUSCULAR VOLUME 104 fL (80-99)
[2023-03-15 18:11] LABS: BASOPHILS % (AUTO) 0 % (0-10); HEMATOCRIT 48 % (35-52); LYMPHOCYTES # (AUTO) 1.4 10^3/uL (1.0-4.0); LYMPHOCYTES % (AUTO) 13 % (12-44); MEAN CORPUSCULAR HEMOGLOBIN 32 pg (25-34); MEAN CORPUSCULAR HGB CONC 31 g/dL (32-36); MEAN PLATELET VOLUME 13.4 fL (9.0-12.2); MONOCYTES # (AUTO) 0.5 10^3/uL (0.0-1.0); MONOCYTES % (AUTO) 5 % (0-12); NEUTROPHILS # (AUTO) 8.9 10^3/uL (1.8-7.8); NEUTROPHILS % (AUTO) 82 % (42-75); PLATELET COUNT 73 10^3/uL (130-400); WHITE BLOOD COUNT 10.9 10^3/uL (4.3-11.0)
[2023-03-15] MEDS ORDERED: LACTATED RINGERS 1,000 ML IV ONE ×2 (18:15→19:15)
[2023-03-15] MEDS ORDERED: PIPERACILLIN SODIUM/TAZOBACTAM 4.5 GM in NS (IVPB) 100 ML IV ONE (18:15)
[2023-03-15 18:20] LABS: ALBUMIN 2.5 GM/DL (3.2-4.5); INR 1.8 (0.8-1.4); POTASSIUM 4.4 MMOL/L (3.6-5.0); PROTHROMBIN TIME PATIENT 21.1 SEC (12.2-14.7)
[2023-03-15 18:21] LABS: CALCIUM 8.4 MG/DL (8.5-10.1)
[2023-03-15 18:23] LABS: TOTAL PROTEIN 5.4 GM/DL (6.4-8.2)
[2023-03-15 18:24] LABS: BILIRUBIN,TOTAL 0.6 MG/DL (0.1-1.0)
[2023-03-15 18:26] LABS: CREATININE SERUM 1.55 MG/DL (0.60-1.30)
[2023-03-15 18:29] LABS: MAGNESIUM 1.8 MG/DL (1.6-2.4)
[2023-03-15 18:33] LABS: BILIRUBIN,URINE NEGATIVE (NEGATIVE); CLARITY,URINE CLEAR; COLOR,URINE YELLOW; GLUCOSE, URINE (UA) NEGATIVE (NEGATIVE); KETONES,URINE NEGATIVE (NEGATIVE); LEUKOCYTE ESTERASE ,URINE NEGATIVE (NEGATIVE); NITRITE,URINE NEGATIVE (NEGATIVE); PH,URINE 5.5 (5-9); PROTEIN,URINE NEGATIVE (NEGATIVE)
--- NOTE | 2023-03-15 18:40 | Diagnostic Imaging Report ---
EXAMINATION: Chest radiograph, portable AP view. DATE: 03/15/2023 6:33 PM INDICATION: 87-year-old female, weakness. COMPARISON: August 29, 2020. FINDINGS: Heart size and mediastinal contours are unchanged. There is no identified pneumothorax. There is elevation of the left hemidiaphragm. There is no identified focal airspace consolidation. There are prior kyphoplasty changes. There is note of an inferior vena cava filter. IMPRESSION: No identified acute cardiopulmonary abnormality. Dictated by: Dictated on workstation # [id number]
[2023-03-15 18:50] LABS: TSH (THYROID ANALYZER) 1.82 UIU/ML (0.35-4.94)
[2023-03-15 18:50] LABS: BACTERIA,URINE TRACE /HPF; RBC,URINE 0-2 /HPF; SQUAMOUS EPITHELIAL CELL,UR 0-2 /HPF
[2023-03-15 18:51] LABS: AMORPHOUS SEDIMENT,UR FEW AMOR URATES /LPF
[2023-03-15] MEDS ORDERED: ANTACID SUSP 30 ML UDC (MYLANTA) PO PRN (20:45)
[2023-03-15] MEDS ORDERED: LACTULOSE SYRUP 10GM/15ML (ENULOSE) 30ML UDC PO PRN (20:45)
[2023-03-15] MEDS ORDERED: diphenhydrAMINE 25 MG TAB (BENADRYL) PO PRN (20:45)
[2023-03-15] MEDS ORDERED: MELATONIN 3 MG TABLET PO PRN (20:45)
[2023-03-15] MEDS ORDERED: polyethylene glycoL POWDER 17 GM (MIRALAX) PACK PO PRN (20:45)
[2023-03-15] MEDS ORDERED: VANCOMYCIN INJECTION 0.1 MG in NS (IVPB) 250 ML IV SCH (20:45)
[2023-03-15] MEDS ORDERED: diphenhydrAMINE 50 MG/ML INJ (BENADRYL) IVP PRN (20:45)
[2023-03-15] MEDS ORDERED: MILK OF MAGNESIA 400 MG/5 ML 30 ML UDC PO PRN (20:45)
[2023-03-15] MEDS ORDERED: HYDROmorphone 2 MG/ML VIAL (DILAUDID) IV PRN (20:45)
[2023-03-15] MEDS ORDERED: BISACODYL 10 MG SUPP (DULCOLAX) PR PRN (20:45)
[2023-03-15] MEDS ORDERED: LORazepam INJ 2 MG/ML (ATIVAN) VIAL IVP PRN (20:45)
[2023-03-15] MEDS ORDERED: ACETAMINOPHEN 325 MG TABLET PO PRN (20:45)
[2023-03-15] MEDS ORDERED: ONDANSETRON 4 MG (ZOFRAN) ORAL DISSOLVE TAB PO PRN (20:45)
[2023-03-15] MEDS ORDERED: LORazepam 0.5 MG (ATIVAN) TABLET PO PRN (20:45)
[2023-03-15] MEDS ORDERED: CALCIUM CARBONATE 500 MG (TUMS) TAB.CHEW PO PRN (20:45)
[2023-03-15 21:11] VITALS: BP 107/65
[2023-03-15] MEDS ORDERED: RT-ALBUTEROL SULF 2.5 MG/3 ML PRE-MIX VIAL INH PRN (21:30)
[2023-03-15] MEDS ORDERED: VANCOMYCIN 1500MG/300ML PREMIX IV ONE (22:00)
[2023-03-15] MEDS: DOCUSATE SODIUM 100 MG (COLACE) CAP PO SCH (22:23)
[2023-03-15] MEDS: SENNOSIDES 8.6 MG (SENOKOT) TAB PO SCH (22:23)
[2023-03-15] MEDS: ENOXAPARIN 80 MG/0.8 ML (LOVENOX) SYR SC SCH (22:23)
[2023-03-15] MEDS: NS IV 1000 ML 1,000 ML IV SCH (22:23)
[2023-03-15 23:15] VITALS: BP 102/66
[2023-03-16] VITALS (7 sets, daily range): BP systolic 82–101; BP diastolic 54–64
[2023-03-16] MEDS: PIPERACILLIN SODIUM/TAZOBACTAM 4.5 GM in NS (IVPB) 100 ML IV SCH ×3 (01:28→17:48)
--- NOTE | 2023-03-16 05:34 | History & Physical ---
History of Present Illness HPI/Chief Complaint Chief complaint: Left-sided mastitis bilateral DVTs while on Eliquis HPI: This is an 87-year-old female residential resident of Dr. Hurtado is essentially bedridden but has a history of DVTs and into the ER with left breast redness and pain and found to have left-sided mastitis. Upon further work-up she was found to have bilateral DVTs and she has been compliant taking her Eliquis. She was placed on Lovenox in the meantime. Her sister is at the bedside and does not know much more information. We will maintain IV antibiotics and closely monitor. Source: patient, family, old records Exam Limitations: no limitations Date Seen 03/16/23 Time Seen by a Provider: 11:00 Attending Physician No,Local Physician PCP Admitting Physician: Josephine Sigala DO Attending Physician: Josephine Sigala DO Referring Physician Date of Admission Mar 15, 2023 at 20:05 Home Medications & Allergies Home Medications Reviewed patient Home Medication Reconciliation performed by pharmacy medication reconciliations eligibility technician and/or nursing. Patients Allergies have been reviewed. Allergies Allergies Coded Allergies adhesive tape (Verified Allergy, Mild, RASH, 08/29/20) aspirin (Verified Allergy, Unknown, 08/29/20) meperidine (Verified Allergy, Unknown, 08/29/20) nitrofurantoin (Verified Allergy, Unknown, 08/29/20) Uncoded Allergies SURGICAL TAPE ( Allergy, Unknown, 05/14/07) Past Xaihrsm-Rnbnxc-Euhxzk Hx Past Med/Social Hx: Reviewed Nursing Past Med/Soc Hx, Reviewed and Corrections made Patient Social History Marrital Status: single Employed/Student: retired Alcohol Use: Denies Use Smoking Status: Never a Smoker 2nd Hand Smoke Exposure: No Recent Hopitalizations: No Immunizations Up To Date Tetanus Booster (TDap): Less than 5yrs Pediatric: No Date of Pneumonia Vaccine: Aug 31, 2017 Date of Influenza Vaccine: Jul 09, 2020 Seasonal Allergies Seasonal Allergies: No Past Medical History Surgeries: Abdominal, Bowel Surgery, Gallbladder, Hysterectomy, Joint Replacement, Orthopedic, Vascular Surgery ivc filter 11/08/2018 Cardiac: Deep Vein Thrombosis, Hypertension Neurological: Dementia 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: No Menopausal Genitourinary: Renal Failure, UTI-Chronic Gastrointestinal: Gastroesophageal Reflux, Hiatal Hernia, Ulcer Musculoskeletal: Osteoporosis, Arthritis, Fractures HEENT: Glaucoma Hearing Impairment: Hard of Hearing Psychosocial: Sleep Difficulties, Anxiety, Depression History of Blood Disorders: Yes Adverse Reaction to Blood Felipe: Yes (Transfusion reaction with platelets 05/2019) Family History Alcoholism 19 FATHER Cardiovascular disease 19 MOTHER Colon cancer 19 MOTHER Diabetes mellitus 19 MOTHER Neoplasm 19 MOTHER (colon ca w/ mets to liver ) Respiratory disorder 19 FATHER No Family History of: AIDS Abdominal aortic aneurysm Arthritis Asthma Dementia Drug abuse Hypertension Kidney disease Myocardial infarction Psychosocial problem Seizure disorder Severe allergy Thyroid disease Tuberculosis Cancer, Diabetes Review of Systems Constitutional: see HPI, malaise, weakness EENTM: no symptoms reported Respiratory: no symptoms reported Cardiovascular: no symptoms reported Gastrointestinal: no symptoms reported Genitourinary: no symptoms reported Musculoskeletal: back pain Skin: see HPI Psychiatric/Neurological: Depressed All Other Systems Reviewed Negative Unless Noted: Yes Physical Exam Physical Exam Vital Signs Vital Signs - First Documented Capillary Refill : Less Than 3 Seconds Height, Weight, BMI Height: 5'0.00" Weight: 123lbs. 0.0oz. 55.998105bm; 32.11 BMI Method:Stated General Appearance: No Apparent Distress, WD/WN, Chronically ill, Thin HEENT: PERRL/EOMI, Normal ENT Inspection, Pharynx Normal, Other (EDENTULOUS) Neck: Normal Inspection Respiratory: Lungs Clear, Normal Breath Sounds, No Accessory Muscle Use, No Respiratory Distress Cardiovascular: Regular Rate, Rhythm, No Murmur Gastrointestinal: Non Tender, Soft Extremity: Normal Capillary Refill, Other (BOTH LEGS WITH SIGNIFICANT EDEMA, AND CHRONIC VENOUS STASIS CHANGES. NO EVIDENCE OF CELLULITIS. NO OPEN WOUNDS NOTED. ) Neurologic/Psychiatric: Alert, No Motor/Sensory Deficits, Normal Mood/Affect Skin: Normal Color, Warm/Dry, Other (Left breast with redness and swelling but no mass) Results Results/Procedures Labs Laboratory Tests 03/15/23 18:02 03/16/23 05:14 03/16/23 05:50 Patient resulted labs reviewed. Assessment/Plan Admission Diagnosis Assessment: Sepsis Left-sided mastitis Bilateral DVTs while on Eliquis History of UTIs Bedridden state Plan: Pain control IV antibiotics Lovenox Supportive care Admission Status: Inpatient Order (span 2 midnights) Reason for Inpatient Admission: Sepsis with bilateral DVTs while on Eliquis Clinical Quality Measures DVT/VTE Risk/Contraindication: Contraindications-Mechi: Other *list below* Other: leg dvt's JOSEPHINE SIGALA DO Mar 16, 2023 05:34
[2023-03-16 05:42] LABS: ALBUMIN 1.9 GM/DL (3.2-4.5); POTASSIUM 3.7 MMOL/L (3.6-5.0)
[2023-03-16 05:43] LABS: CALCIUM 7.8 MG/DL (8.5-10.1)
[2023-03-16 05:45] LABS: TOTAL PROTEIN 4.2 GM/DL (6.4-8.2)
[2023-03-16 05:46] LABS: BILIRUBIN,TOTAL 0.7 MG/DL (0.1-1.0)
[2023-03-16 05:48] LABS: CREATININE SERUM 1.29 MG/DL (0.60-1.30)
[2023-03-16 05:57] LABS: BASOPHILS % (AUTO) 0 % (0-10)
[2023-03-16 05:59] LABS: EOSINOPHILS # (AUTO) 0.1 10^3/uL (0.0-0.3); EOSINOPHILS % (AUTO) 2 % (0-10); HEMATOCRIT 41 % (35-52); HEMOGLOBIN 12.4 g/dL (11.5-16.0); LYMPHOCYTES # (AUTO) 0.9 10^3/uL (1.0-4.0); LYMPHOCYTES % (AUTO) 12 % (12-44); MEAN CORPUSCULAR HEMOGLOBIN 32 pg (25-34); MEAN CORPUSCULAR HGB CONC 30 g/dL (32-36); MEAN CORPUSCULAR VOLUME 105 fL (80-99); MEAN PLATELET VOLUME 13.3 fL (9.0-12.2); MONOCYTES # (AUTO) 0.4 10^3/uL (0.0-1.0); MONOCYTES % (AUTO) 6 % (0-12); NEUTROPHILS # (AUTO) 5.9 10^3/uL (1.8-7.8); NEUTROPHILS % (AUTO) 80 % (42-75); PLATELET COUNT 54 10^3/uL (130-400); WHITE BLOOD COUNT 7.4 10^3/uL (4.3-11.0)
[2023-03-16 06:01] LABS: SMEAR SCAN COMMENT YES
[2023-03-16] MEDS: RT-ALBUTEROL SULF 2.5 MG/3 ML PRE-MIX VIAL INH SCH ×2 (07:08→22:00)
[2023-03-16] MEDS: NS IV 1000 ML 1,000 ML IV SCH (09:34)
[2023-03-16] MEDS: DOCUSATE SODIUM 100 MG (COLACE) CAP PO SCH ×2 (09:34→20:12)
[2023-03-16] MEDS: SENNOSIDES 8.6 MG (SENOKOT) TAB PO SCH ×2 (09:34→20:12)
--- NOTE | 2023-03-16 09:41 | Wound Care Assessment ---
Wound Care Assessment Date Seen by Provider: Mar 16, 2023 Time Seen by Provider: 09:35 Chief Complaint Skin folds HPI This pleasant 87 year old was admitted for cellulitis of left breast. She was also found to have gaulding in skin folds and wound care was consulted. 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 She does have b/l LE edema but no open wounds today. Plan for interdry and miconazole to skin folds and silver alginate with BFD to left abdomen. Past Medical History: Admits Deep Vein Thrombosis Chronic venous stasis changes Smoking Status: Never a Smoker Recreational Drug Use: No Alcohol Use: Denies Use Review of Systems Neurological: Weakness Exam Vital Signs Date Time Temp Pulse Resp B/P (MAP) Pulse Ox O2 Delivery O2 Flow Rate FiO2 03/16/23 07:47 36.2 89 20 98/64 (75) 98 Nasal Cannula 2.00 Capillary Refill : Less Than 3 Seconds General Appearance: no apparent distress, obese HEENT: other ([place]) Neck: full range of motion Respiratory: no respiratory distress, no accessory muscle use Extremities: pedal edema Neurologic/Psychiatric: alert, normal mood/affect Skin: rash (under pannus) Skin Character: erythema, rash Gaulding under pannus/breasts 1x1x0.1cm ulcer to left abdomen. The epithelialization is none. There is no tunneling or undermining. Drainage is large and serosanguinous. Granulation is none. Necrotic is large and slough. The margins are flat. Results Laboratory Tests 03/15/23 18:02: White Blood Count 10.9, Red Blood Count 4.58, Hemoglobin 14.7, Hematocrit 48, Mean Corpuscular Volume 104H, Mean Corpuscular Hemoglobin 32, Mean Corpuscular Hemoglobin Concent 31L, Red Cell Distribution Width 14.5, Platelet Count 73L, Mean Platelet Volume 13.4H, Immature Granulocyte % (Auto) 0, Neutrophils (%) (Auto) 82H, Lymphocytes (%) (Auto) 13, Monocytes (%) (Auto) 5, Eosinophils (%) (Auto) 0, Basophils (%) (Auto) 0, Neutrophils # (Auto) 8.9H, Lymphocytes # (Auto) 1.4, Monocytes # (Auto) 0.5, Eosinophils # (Auto) 0.0, Basophils # (Auto) 0.0, Immature Granulocyte # (Auto) 0.0, Percent Immature Platelet Fraction 15.3H , Prothrombin Time 21.1H, INR Comment 1.8H, Activated Partial Thromboplast Time 34, Sodium Level 144, Potassium Level 4.4, Chloride Level 107, Carbon Dioxide Level 28, Anion Gap 9, Blood Urea Nitrogen 42H, Creatinine 1.55H, Estimat Glomerular Filtration Rate 32, BUN/Creatinine Ratio 27, Glucose Level 110H, Calcium Level 8.4L, Corrected Calcium 9.6, Magnesium Level 1.8, Total Bilirubin 0.6, Aspartate Amino Transf (AST/SGOT) 42H, Alanine Aminotransferase (ALT/SGPT) 21, Alkaline Phosphatase 94, Total Protein 5.4L, Albumin 2.5L, TSH [place] Testing 1.82, Smear Scan 03/15/23 18:09: Influenza Type A (RT-PCR) Not Detected, Influenza Type B (RT-PCR) Not Detected, SARS-CoV-2 RNA (RT-PCR) Not Detected 03/15/23 18:13: Lactic Acid Level 1.05 03/15/23 18:26: Urine Color YELLOW, Urine Clarity CLEAR, Urine pH 5.5, Urine Specific [place] 1.020, Urine Protein NEGATIVE, Urine Glucose (UA) NEGATIVE, Urine Ketones NEGATIVE, Urine Nitrite NEGATIVE, Urine Bilirubin NEGATIVE, Urine Urobilinogen 1.0, Urine Leukocyte Esterase NEGATIVE, Urine RBC (Auto) NEGATIVE, Urine RBC 0- 2, Urine WBC NONE, Urine Squamous Epithelial Cells 0-2, Urine Crystals PRESENTH, Urine Amorphous Sediment FEW GERMAN URATESH, Urine Bacteria TRACE, Urine Casts PRESENT, Urine Hyaline Casts 2-5H, Urine Mucus MODERATEH, Urine Culture Indicated NO 03/16/23 05:14: Sodium Level 144, Potassium Level 3.7, Chloride Level 111H, Carbon Dioxide Level 27, Anion Gap 6, Blood Urea Nitrogen 37H, Creatinine 1.29, Estimat Glomerular Filtration Rate 40, BUN/Creatinine Ratio 29, Glucose Level 76, Calcium Level 7.8L, Corrected Calcium 9.5, Total Bilirubin 0.7, Aspartate Amino Transf (AST/SGOT) 22, Alanine Aminotransferase (ALT/SGPT) 16, Alkaline Phosphatase 77, Total Protein 4.2L, Albumin 1.9L 03/16/23 05:50: White Blood Count 7.4, Red Blood Count 3.93, Hemoglobin 12.4, Hematocrit 41, Mean Corpuscular Volume 105H, Mean Corpuscular Hemoglobin 32, Mean Corpuscular Hemoglobin Concent 30L, Red Cell Distribution Width 14.3, Platelet Count 54L, Mean Platelet Volume 13.3H, Immature Granulocyte % (Auto) 0, Neutrophils (%) (Auto) 80H, Lymphocytes (%) (Auto) 12, Monocytes (%) (Auto) 6, Eosinophils (%) (Auto) 2, Basophils (%) (Auto) 0, Neutrophils # (Auto) 5.9, Lymphocytes # (Auto) 0.9L, Monocytes # (Auto) 0.4, Eosinophils # (Auto) 0.1, Basophils # (Auto) 0.0, Immature Granulocyte # (Auto) 0.0, Percent Immature Platelet Fraction 15.2H, Smear Scan YES Microbiology 03/15/23 Urine Culture - Preliminary, Resulted NO GROWTH Microbiology 03/15/23 Urine Culture - Preliminary, Resulted NO GROWTH Assessment/Plan/Dx Assessment: 1. Cutaneous candidiasis 2. Non-pressure ulcer L. abdomen 3. Pedal edema with chronic venous stigmata 4. Cellulitis of left breast 5. Theombocytopenia 6. PEM Plan: 1. Miconazole powder, cleansing and interdry bid 2. Silver alginate HF with BFD qd 3. Elevation while admitted 4. Defer to primary 5. Defer to primary 6. Protein supplementation warranted TRACY LOCKETT MD Mar 16, 2023 09:41
--- NOTE | 2023-03-16 10:55 | Diagnostic Imaging Report ---
INDICATION: Cellulitis of the left breast. Sonographic interrogation of the 12:00 to 6:00 location of the left breast was performed. No sonographic abnormality is identified. No solid or cystic mass is detected. IMPRESSION: BI-RADS Category 1 No sonographic abnormality is detected. ACR BI-RADS Category 1: Negative. Result letter will be mailed to the patient. Note: At least 10% of breast cancer is not imaged by mammography. Dictated by: Dictated on workstation # [id number]
[2023-03-16] MEDS ORDERED: ONDA-106 PO (11:08)
[2023-03-16] MEDS ORDERED: ASCO-262 PO (11:08)
[2023-03-16] MEDS ORDERED: CALC-1026 PO (11:08)
[2023-03-16] MEDS ORDERED: BISA5TAB20 PO (11:08)
[2023-03-16] MEDS ORDERED: LOTE5DRO OD (11:08)
[2023-03-16] MEDS ORDERED: FAMO20TA5 PO (11:08)
[2023-03-16] MEDS ORDERED: ACET-2267 PO (11:08)
[2023-03-16] MEDS ORDERED: APIX2.5T PO (11:08)
[2023-03-16] MEDS ORDERED: OXYC-556 PO (11:08)
[2023-03-16] MEDS ORDERED: MAGN400O7 PO (11:08)
[2023-03-16] MEDS ORDERED: GABA-486 PO (11:08)
[2023-03-16] MEDS ORDERED: SODI5POW2 PO (11:08)
[2023-03-16] MEDS ORDERED: DIPH25TA65 PO (11:08)
[2023-03-16] MEDS ORDERED: TOLT2CAP21 PO (11:08)
[2023-03-16] MEDS ORDERED: ARGI1POW4 PO (11:12)
[2023-03-16] MEDS ORDERED: BISACODYL 5 MG (DULCOLAX) TABLET PO PRN (12:00)
[2023-03-16] MEDS ORDERED: NON-FORMULARY MEDICATION 1 EA EA (Polyvinyl Alcohol/Povidone (Artificial Tears Drops) 1 DR OU PRN (12:00)
[2023-03-16] MEDS ORDERED: SODIUM ZIRCONIUM CYCLOSILICATE 5 GM PO SCH (12:00)
[2023-03-16] MEDS ORDERED: diphenhydrAMINE 25 MG TAB (BENADRYL) PO PRN (12:00)
[2023-03-16] MEDS ORDERED: NON-FORMULARY MEDICATION 1 EA EA (Ondansetron HCl 8 MG) PO PRN (12:00)
[2023-03-16] MEDS ORDERED: MILK OF MAGNESIA 400 MG/5 ML 30 ML UDC PO PRN (12:00)
[2023-03-16] MEDS ORDERED: ARTIFICAL TEARS 0.4 ML UNIT DOSE (REFRESH PLUS) OU PRN (12:15)
[2023-03-16] MEDS ORDERED: ONDANSETRON 4 MG (ZOFRAN) ORAL DISSOLVE TAB PO PRN (12:15)
[2023-03-16] MEDS ORDERED: NON-FORMULARY MEDICATION 1 EA EA (Gabapentin 800 MG) PO SCH (13:00)
[2023-03-16] MEDS: GABAPENTIN 400 MG (NEURONTIN) CAP PO SCH ×2 (13:37→17:48)
[2023-03-16] MEDS: CALCIUM CARB + VIT D 600 MG (CALCARB + D) TAB PO SCH (17:48)
[2023-03-16] MEDS: ASCORBIC ACID (VIT C) 500 MG TABLET PO SCH (17:49)
[2023-03-16] MEDS: oxyCODONE/APAP 10/325MG (PERCOCET 10) TABLET PO SCH (17:53)
[2023-03-16] MEDS: FAMOTIDINE 20 MG (PEPCID) TABLET PO SCH (20:12)
[2023-03-16] MEDS: morphine ER 30 MG (MS CONTIN) TAB PO SCH (20:12)
[2023-03-16] MEDS: PANTOPRAZOLE 40 MG (PROTONIX) TAB PO SCH (20:12)
[2023-03-16] MEDS: TOLTERODINE LA 2 MG (DETROL LA) CAP PO SCH (20:12)
[2023-03-16] MEDS: ENOXAPARIN 80 MG/0.8 ML (LOVENOX) SYR SC SCH (20:12)
[2023-03-16] MEDS: MICONAZOLE 2% POWDER (DESENEX AF) 90 GM TOP SCH (20:14)
[2023-03-16] MEDS: SALIVA STIMULANT GEL 1.5 OZ (BIOTENE) TUBE MM SCH (20:16)
[2023-03-16] MEDS: ONDANSETRON 4 MG/2 ML (SDV) Z0FRAN IV PRN (20:30)
[2023-03-16] MEDS ORDERED: SALIVA STIMULANT AGENTS COMB MM SCH (21:00)
[2023-03-16] MEDS ORDERED: FAMOTIDINE 20 MG (PEPCID) TABLET PO SCH (21:00)
[2023-03-16] MEDS ORDERED: TROUGH ORDER-PHARMACY XX ONE (21:00)
[2023-03-16] MEDS ORDERED: NON-FORMULARY MEDICATION 1 EA EA (Ascorbate Calcium (Vitamin C) 500 MG) PO SCH (21:00)
[2023-03-16] MEDS ORDERED: DOCUSATE SODIUM 100 MG (COLACE) CAP PO SCH (21:00)
[2023-03-16] MEDS: VANCOMYCIN 1 GM/NS 250 ML IVPB IV SCH ×2 (22:42)
[2023-03-17] VITALS (8 sets, daily range): BP systolic 78–123; BP diastolic 45–80
[2023-03-17] MEDS: PIPERACILLIN SODIUM/TAZOBACTAM 4.5 GM in NS (IVPB) 100 ML IV SCH ×3 (03:11→19:57)
--- NOTE | 2023-03-17 05:32 | Progress Note ---
Subjective Date Seen by a Provider: Mar 17, 2023 Time Seen by a Provider: 11:00 Subjective/Events-last exam Patient doing a lot better Discontinue catheter Initiate therapy to get out of bed IV antibiotics maintained Labs reviewed Review of Systems General: Fatigue, Malaise Focused Exam Lactate Level 03/15/23 18:13: Lactic Acid Level 1.05 Time of Focused Exam: 19:00 Objective Exam Last Set of Vital Signs Vital Signs Date Time Temp Pulse Resp B/P (MAP) Pulse Ox O2 Delivery O2 Flow Rate FiO2 03/17/23 03:33 36.7 87 16 123/80 (94) 98 Nasal Cannula 2.00 Capillary Refill : Less Than 3 Seconds I&O Intake and Output 03/17/23 00:00 Intake Total 2450 ml Output Total 775 ml Balance 1675 ml Intake Oral 550 ml IV Total 1900 ml Output Urine Total 775 ml General: Alert, Oriented X3, Cooperative, No Acute Distress Lungs: Clear to Auscultation, Normal Air Movement Heart: Regular Rate, Normal S1, Normal S2, No Murmurs Psych/Mental Status: Mental Status NL, Mood NL Other physical findings Left breast cellulitis improved Results Lab Laboratory Tests 03/16/23 05:50: White Blood Count 7.4, Red Blood Count 3.93, Hemoglobin 12.4, Hematocrit 41, Mean Corpuscular Volume 105H, Mean Corpuscular Hemoglobin 32, Mean Corpuscular Hemoglobin Concent 30L, Red Cell Distribution Width 14.3, Platelet Count 54L, Mean Platelet Volume 13.3H, Immature Granulocyte % (Auto) 0, Neutrophils (%) (Auto) 80H, Lymphocytes (%) (Auto) 12, Monocytes (%) (Auto) 6, Eosinophils (%) (Auto) 2, Basophils (%) (Auto) 0, Neutrophils # (Auto) 5.9, Lymphocytes # (Auto) 0.9L, Monocytes # (Auto) 0.4, Eosinophils # (Auto) 0.1, Basophils # (Auto) 0.0, Immature Granulocyte # (Auto) 0.0, Percent Immature Platelet Fraction 15.2H, Smear Scan YES 03/16/23 21:15: Vancomycin Level Trough 13.1 Microbiology 03/15/23 Urine Culture - Final, Complete NO GROWTH 03/15/23 Blood Culture - Preliminary, Resulted No growth Assessment/Plan Assessment/Plan Assess & Plan/Chief Complaint Assessment: Sepsis Left-sided mastitis 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 Girard since it appears abscess could be forming PT and OT DC catheter Clinical Quality Measures DVT/VTE Risk/Contraindication: Contraindications-Mechi: Other *list below* Other: leg dvt's SARAH CALLEJAS DO Mar 17, 2023 05:32
[2023-03-17 05:38] LABS: BASOPHILS % (AUTO) 0 % (0-10); EOSINOPHILS # (AUTO) 0.1 10^3/uL (0.0-0.3); EOSINOPHILS % (AUTO) 2 % (0-10); HEMATOCRIT 41 % (35-52); HEMOGLOBIN 12.5 g/dL (11.5-16.0); LYMPHOCYTES # (AUTO) 0.7 10^3/uL (1.0-4.0); LYMPHOCYTES % (AUTO) 13 % (12-44); MEAN CORPUSCULAR HEMOGLOBIN 32 pg (25-34); MEAN CORPUSCULAR HGB CONC 30 g/dL (32-36); MEAN CORPUSCULAR VOLUME 105 fL (80-99); MEAN PLATELET VOLUME 13.4 fL (9.0-12.2); MONOCYTES # (AUTO) 0.3 10^3/uL (0.0-1.0); MONOCYTES % (AUTO) 7 % (0-12); NEUTROPHILS % (AUTO) 78 % (42-75); PLATELET COUNT 48 10^3/uL (130-400); WHITE BLOOD COUNT 5.1 10^3/uL (4.3-11.0)
[2023-03-17 05:58] LABS: ALBUMIN 1.9 GM/DL (3.2-4.5); BILIRUBIN,TOTAL 0.6 MG/DL (0.1-1.0); CALCIUM 7.6 MG/DL (8.5-10.1); CREATININE SERUM 1.39 MG/DL (0.60-1.30); POTASSIUM 3.7 MMOL/L (3.6-5.0); TOTAL PROTEIN 4.2 GM/DL (6.4-8.2)
[2023-03-17] MEDS: RT-ALBUTEROL SULF 2.5 MG/3 ML PRE-MIX VIAL INH SCH ×2 (07:17→19:34)
[2023-03-17] MEDS ORDERED: LOTEPREDNOL ETABONATE OD SCH (09:00)
[2023-03-17] MEDS ORDERED: ARGININE PO SCH (09:00)
[2023-03-17] MEDS ORDERED: GLUTAMINE PO SCH (09:00)
[2023-03-17] MEDS ORDERED: NON-FORMULARY MEDICATION 1 EA EA (Naloxegol Oxalate (Movantik) 25 MG) PO SCH (09:00)
[2023-03-17] MEDS ORDERED: CALCIUM HMB PO SCH (09:00)
[2023-03-17] MEDS: GABAPENTIN 400 MG (NEURONTIN) CAP PO SCH ×3 (09:37→18:45)
[2023-03-17] MEDS: morphine ER 30 MG (MS CONTIN) TAB PO SCH ×2 (09:37→22:20)
[2023-03-17] MEDS: VITAMIN D3 125 MCG (5,000 UNITS) CAPSULE PO SCH (09:37)
[2023-03-17] MEDS: CALCIUM CARB + VIT D 600 MG (CALCARB + D) TAB PO SCH ×2 (09:37→18:52)
[2023-03-17] MEDS: SENNOSIDES 8.6 MG (SENOKOT) TAB PO SCH ×2 (09:38→19:51)
[2023-03-17] MEDS: ASCORBIC ACID (VIT C) 500 MG TABLET PO SCH ×2 (09:38→18:45)
[2023-03-17] MEDS: GABAPENTIN 100 MG (NEURONTIN) CAP PO SCH (09:38)
[2023-03-17] MEDS: DOCUSATE SODIUM 100 MG (COLACE) CAP PO SCH ×2 (09:38→19:50)
[2023-03-17] MEDS: PANTOPRAZOLE 40 MG (PROTONIX) TAB PO SCH ×2 (09:38→20:02)
[2023-03-17] MEDS: SALIVA STIMULANT GEL 1.5 OZ (BIOTENE) TUBE MM SCH ×2 (09:38→20:04)
[2023-03-17] MEDS: MICONAZOLE 2% POWDER (DESENEX AF) 90 GM TOP SCH ×2 (09:39→20:04)
[2023-03-17] MEDS: polyethylene glycoL POWDER 17 GM (MIRALAX) PACK PO SCH (09:42)
[2023-03-17] MEDS: oxyCODONE/APAP 10/325MG (PERCOCET 10) TABLET PO SCH ×2 (10:00→20:00)
[2023-03-17] MEDS ORDERED: SENNA W/DOCUSATE (SENOKOT S) TABLET PO ONE (11:00)
[2023-03-17] MEDS ORDERED: LACTULOSE SYRUP 10GM/15ML (ENULOSE) 30ML UDC PO ONE (11:00)
[2023-03-17] MEDS ORDERED: polyethylene glycoL POWDER 17 GM (MIRALAX) PACK PO ONE (11:00)
--- NOTE | 2023-03-17 11:32 | Consultation - Surgery ---
History of Present Illness History of Present Illness Patient Consulted On(piotr/time) 03/17/23 11:27 Time Seen by Provider: 10:56 History of Present Illness Surgery asked to consult regarding possible breast abscess. HPI per ED: PT ARRIVES VIA EMS FROM [facility]IA [facility], C/O GENERALIZED WEAKNESS X 1 WEEK, PT WITH KNOWN DVT'S OF BILATERAL CALF VEINS, DX 02/15/23-ON ELIQUIS, C/O LEFT LEG PAIN OF UNKNOWN DURATION NO OTHER SYMPTOMS BY PT, PT WITH CHRONIC GENERALIZED WEAKNESS, ESSENTIALLY WHEELCHAIR BOUND, ABLE TO STAND FOR TRANSFERS, ACCORDING TO PRIOR RECORDS. PT WITH CHRONIC GENERALIZED PAIN AND IS ON OXYCODONE, MORPHINE AND GABAPENTIN DAILY When I spoke to pt this am she stated pain was not that bad and really no other complaints. When I asked her about the breast she said it had been there a week, but then said she only noticed it when she came to the ER. When I asked her again, she stated she thought it was because of the "belt" they were using to lift her up. She denies any breast history, but stated mother and cousin have breast cancer. She was not sure about last mammogram. Allergies and Home Medications Allergies Coded Allergies: adhesive tape (Verified Allergy, Mild, RASH, 08/29/20) aspirin (Verified Allergy, Unknown, 08/29/20) meperidine (Verified Allergy, Unknown, 08/29/20) nitrofurantoin (Verified Allergy, Unknown, 08/29/20) Uncoded Allergies: SURGICAL TAPE (Allergy, Unknown, 05/14/07) Patient Home Medication List Home Medication List Reviewed: Yes Acetaminophen (Tylenol Extra Strength) 500 Mg Tablet, 500 MG PO TID, (Reported) Entered as Reported by: BECKY BISWAS on 03/16/231107 Last Action: Held Apixaban (Eliquis) 2.5 Mg Tablet, 2.5 MG PO BID, (Reported) Entered as Reported by: BECKY BISWAS on 03/16/231107 Last Action: Held Arginine/Glutamine/Calcium Hmb (Car Packet) 7 Gram-7 Gram-1.5 Gram Powd.pack, 1 EACH PO DAILY, (Reported) Entered as Reported by: BECKY BISWAS on 03/16/23 111 Last Action: Converted Ascorbate Calcium (Vitamin C) 500 Mg Tablet, 500 MG PO BID, (Reported) Entered as Reported by: BECKY BISWAS on 03/16/231107 Last Action: Converted Bisacodyl (Bisacodyl) 5 Mg Tablet.dr, 10 MG PO DAILY PRN for CONSTIPATION-4TH LINE, (Reported) Entered as Reported by: BECKY BISWAS on 03/16/231107 Last Action: Continued Calcium Carbonate/Vitamin D3 (Calcium 600 + Vit D 400 Tablet) 600 Mg Calcium-10 Mcg (400 Unit) Tablet, 1 EACH PO BID, (Reported) Entered as Reported by: BECKY BISWAS on 03/16/231107 Last Action: Continued Cholecalciferol (Vitamin D3) (Vitamin D3) 125 Mcg Tablet, 125 MCG PO DAILY, (Reported) Entered as Reported by: BECKY BISWAS on 08/31/20 0852 Last Action: Continued Diphenhydramine HCl (Benadryl Allergy) 25 Mg Tablet, 25 MG PO BID PRN for ITCHING, (Reported) Entered as Reported by: BECKY BISWAS on 03/16/231107 Last Action: Continued Docusate Sodium (Colace) 100 Mg Capsule, 100 MG PO BID, (Reported) Entered as Reported by: DELFINO VILLAGOMEZ on 08/29/20 1516 Last Action: Continued Famotidine (Famotidine) 20 Mg Tablet, 20 MG PO BID, (Reported) Entered as Reported by: BECKY BISWAS on 03/16/231107 Last Action: Continued Gabapentin (Gabapentin) 800 Mg Tablet, 800 MG PO TIDWM, (Reported) Entered as Reported by: ELVIA SARABIA on 12/09/19 1237 Last Action: Converted Gabapentin (Gabapentin) 100 Mg Capsule, 100 MG PO DAILY, (Reported) Entered as Reported by: BECKY BISWAS on 03/16/231107 Last Action: Continued Loteprednol Etabonate (Loteprednol Etabonate) 0.5 % Drops.gel, 1 DROP OD DAILY, (Reported) Entered as Reported by: BECKY BISWAS on 03/16/231107 Last Action: Converted Magnesium Hydroxide (Milk of Magnesia) 400 Mg/5 Ml Oral.susp, 15-30 ML PO BID PRN for CONSTIPATION-7TH LINE, (Reported) Entered as Reported by: BECKY BISWAS on 03/16/231107 Last Action: Continued Morphine Sulfate (Morphine Sulfate ER) 30 Mg Tablet.er, 30 MG PO BID, (Reported) Entered as Reported by: JUDY GUARDADO on 10/12/19 1833 Last Action: Continued Naloxegol Oxalate (Movantik) 25 Mg Tablet, 25 MG PO DAILY, (Reported) Entered as Reported by: STEVEN CAMPOS on 05/28/19 0940 Last Action: Converted Ondansetron HCl (Ondansetron HCl) 8 Mg Tablet, 8 MG PO Q8H PRN for NAUSEA/VOMITING-1ST LINE, (Reported) Entered as Reported by: BECKY BISWAS on 03/16/231107 Last Action: Converted Oxycodone HCl/Acetaminophen (Oxycodone-Acetaminophen 10-325) 10 Mg-325 Mg Tablet, 1 EA PO 1000,1800, (Reported) Entered as Reported by: BECKY BISWAS on 03/16/231107 Last Action: Continued Pantoprazole Sodium (Pantoprazole Sodium) 40 Mg Tablet.dr, 40 MG PO BID, (Reported) Entered as Reported by: STEVEN CAMPOS on 05/28/19 0940 Last Action: Continued Polyethylene Glycol 3350 (Miralax) 17 Gm Powd.pack, 17 GM PO DAILY, (Reported) Entered as Reported by: STEVEN CAMPOS on 11/21/18 111 Last Action: Continued Polyvinyl Alcohol/Povidone (Artificial Tears Drops) 0.5 %-0.6 % Drops, 1 DROP OU Q4H PRN for DRY EYES, (Reported) Entered as Reported by: STEVEN CAMPOS on 10/15/18 0933 Last Action: Converted Saliva Stimulant Agents Comb.3 (Biotene Moisturizing Mouth) 1 Each [place], 1 SPRAY MM BID, (Reported) Entered as Reported by: DELFINO VILLAGOMEZ on 08/29/20 1524 Last Action: Converted Sodium Zirconium Cyclosilicate (Lokelma) 5 Gram Powd.pack, 5 GM PO Q48H, (Reported) Entered as Reported by: BECKY BISWAS on 03/16/231107 Last Action: Converted Tolterodine Tartrate (Tolterodine Tartrate ER) 2 Mg Cap.er.24h, 2 MG PO HS, (Reported) Entered as Reported by: BECKY BISWAS on 6/8/23 1108 Last Action: Continued Discontinued Medications Acetaminophen (Tylenol) 325 Mg Tablet, 650 MG PO Q4H PRN for PAIN-MILD (1-4), (Reported) Discontinued Reason: No Longer Taking Entered as Reported by: STEVEN CAMPOS on 09/02/19 0915 Last Action: Discontinued Apixaban (Eliquis) 2.5 Mg Tablet, 2.5 MG PO BID Discontinued Reason: No Longer Taking Prescribed by: Randa Cohn on 02/15/23 1749 Last Action: Discontinued Benzonatate (Benzonatate) 100 Mg Capsule, 100 MG PO Q8H PRN for COUGH, (Reported) Discontinued Reason: No Longer Taking Entered as Reported by: DELFINO VILLAGOMEZ on 08/29/20 1522 Last Action: Discontinued Calcium Carbonate/Vitamin D3 (Calcium 600 + Vit D3 Tablet) 1 Each Tablet, 1 TAB PO BID, (Reported) Discontinued Reason: No Longer Taking Entered as Reported by: STEVEN CAMPOS on 05/28/19 0940 Last Action: Discontinued Cyanocobalamin (Cyanocobalamin Injection) 1,000 Mcg/Ml Inj, 1,000 MCG IM Q MONTH, (Reported) Discontinued Reason: No Longer Taking Entered as Reported by: DELFINO VILLAGOMEZ on 08/29/20 1519 Last Action: Discontinued Diclofenac Sodium (Voltaren) 100 Gm Gel..gram., 1 GM TP Q4H PRN for JOINT PAIN, (Reported) Discontinued Reason: No Longer Taking Entered as Reported by: DOREEN STARKEY on 09/26/16 1507 Last Action: Discontinued Ferrous Sulfate (Ferrous Sulfate) 325 Mg Tablet, 650 MG PO DAILY, (Reported) Discontinued Reason: No Longer Taking Entered as Reported by: STEVNE CAMPOS on 09/02/19 0915 Last Action: Discontinued Fesoterodine Fumarate (Toviaz) 8 Mg Tab.er.24h, 8 MG PO HS, (Reported) Discontinued Reason: No Longer Taking Entered as Reported by: DELFINO VILLAGOMEZ on 08/29/20 1501 Last Action: Discontinued Gabapentin (Gabapentin) 600 Mg Tablet, 600 MG PO BID, (Reported) Discontinued Reason: No Longer Taking Entered as Reported by: ELVIA SARABIA on 12/09/19 1237 Last Action: Discontinued Hydrocortisone (Proctosol-Hc) 28.35 Gm Cream.appl, TOP QID PRN for HEMORRHOIDS, (Reported) Discontinued Reason: No Longer Taking Entered as Reported by: STEVEN CAMPOS on 05/07/18 1336 Last Action: Discontinued Hydrocortisone Acetate (Hydrocortisone) 28 Gm Oint...g., 1 APPLIC TP DAILY, (Reported) Discontinued Reason: No Longer Taking Entered as Reported by: BECKY BISWAS on 08/31/20 0852 Last Action: Discontinued Levofloxacin (Levofloxacin) 250 Mg Tablet, 250 MG PO DAILY@1100 Discontinued Reason: No Longer Taking Prescribed by: VARGHESE TIMMONS on 09/01/20 1002 Last Action: Discontinued Loratadine (Claritin) 10 Mg Capsule, 10 MG PO DAILY PRN for ALLERGY SYMPTOMS, (Reported) Discontinued Reason: No Longer Taking Entered as Reported by: DELFINO VILLAGOMEZ on 08/29/20 1520 Last Action: Discontinued Loteprednol Etabonate (Lotemax) 5 Gm Drops.gel, 1 DROP OD DAILY, (Reported) Discontinued Reason: No Longer Taking Entered as Reported by: DOREEN STARKEY on 09/26/16 1507 Last Action: Discontinued Magnesium Hydroxide (Milk of Magnesia) 400 Mg/5 Ml Oral.susp, 15 ML PO BID PRN for CONSTIPATION-7TH LINE, (Reported) Discontinued Reason: No Longer Taking Entered as Reported by: DELFINO VILLAGOMEZ on 08/29/20 1511 Last Action: Discontinued Meloxicam (Meloxicam) 7.5 Mg Tablet, 7.5 MG PO DAILY, (Reported) Discontinued Reason: No Longer Taking Entered as Reported by: ELVIA SARABIA on 12/09/19 1237 Last Action: Discontinued Nystatin (Nystop) 60 Gm Powder, 1 APPLIC TP TID PRN for YEAST INFECTION, (Reported) Discontinued Reason: No Longer Taking Entered as Reported by: DELFINO VILLAGOMEZ on 08/29/20 1508 Last Action: Discontinued Ondansetron HCl (Zofran) 4 Mg Tab, 8 MG PO Q8H PRN for NAUSEA/VOMITING-1ST LINE, (Reported) Discontinued Reason: No Longer Taking Entered as Reported by: DELFINO VILLAGOMEZ on 08/29/20 1503 Last Action: Discontinued Oxycodone HCl/Acetaminophen (Percocet 10-325 mg Tablet) 1 Each Tablet, 1 TAB PO TID PRN for PAIN-MODERATE, (Reported) Discontinued Reason: No Longer Taking Entered as Reported by: DELFINO VILLAGOMEZ on 08/29/20 1527 Last Action: Discontinued Polyvinyl Alcohol/Povidone (Artificial Tears Drops) 15 Ml Drops, 1 DROP OU Q4H PRN for DRY EYES, (Reported) Discontinued Reason: No Longer Taking Entered as Reported by: DELFINO VILLAGOMEZ on 08/29/20 1526 Last Action: Discontinued Promethazine HCl (Promethazine Tablet) 25 Mg Tablet, 25 MG PO Q8H PRN for ROXANA SEA/VOMITING, (Reported) Discontinued Reason: No Longer Taking Entered as Reported by: ELVIA SARABIA on 12/09/19 1237 Last Action: Discontinued Promethazine HCl (Promethazine Vial) 25 Mg/1 Ml Vial, 50 MG IM Q8H PRN for NAUSEA/VOMITING-2ND LINE, (Reported) Discontinued Reason: No Longer Taking Entered as Reported by: BECKY BISWAS on 08/31/20 0852 Last Action: Discontinued Promethazine HCl/Codeine (Prometh-Codein 6.25-10 mg/5 ml) 5 Ml Syrup, 5 ML PO Q6H PRN for COUGH, (Reported) Discontinued Reason: No Longer Taking Entered as Reported by: DELFINO VILLAGOMEZ on 08/29/20 1500 Last Action: Discontinued Sodium Chloride (Saline Nasal [place]) 30 Ml [place], 1 SPRAY NS TID PRN for DRY NOSE, (Reported) Discontinued Reason: No Longer Taking Entered as Reported by: DELFINO VILLAGOMEZ on 08/29/20 1458 Last Action: Discontinued Zinc Oxide (Desitin) 57 Gm Cream..g., 1 APPLIC TP Q12H PRN for REDNESS, (Reported) Discontinued Reason: No Longer Taking Entered as Reported by: DELFINO VILLAGOMEZ on 08/29/20 1517 Last Action: Discontinued Past Nabrprm-Wtwccb-Ywegid Hx Patient Social History Smoking Status: Never a Smoker 2nd Hand Smoke Exposure: No Recent Hopitalizations: No Alcohol Use?: No Immunizations Up To Date Tetanus Booster (TDap): Less than 5yrs PED Vaccines UTD: No Date of Pneumonia Vaccine: Aug 31, 2017 Date of Influenza Vaccine: Jul 09, 2020 Seasonal Allergies Seasonal Allergies: No Surgeries History of Surgeries: Yes (hiatal hernia, bilat hip sx, L TKR, L femur fx) Surgeries: Abdominal, Bowel Surgery, Gallbladder, Hysterectomy, Joint Replacem ent, Orthopedic, Vascular Surgery Respiratory History of Respiratory Disorde: Yes (OXYGEN AT HS) Respiratory Disorders: COPD, Emphysema Cardiovascular History of Cardiac Disorders: Yes (BILAT DVT'S 02/15/23) Cardiac Disorders: Atrial Fibrillation, Deep Vein Thrombosis, Hypertension, Irregular Heartbeat Neurological History of Neurological Disord: Yes Neurological Disorders: Dementia 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 System Hx 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 Disorders: No 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 Genitourinary History of Genitourinary Disor: Yes (NO DIALYSIS) Genitourinary Disorders: Renal Failure, UTI-Chronic Gastrointestinal History of Gastrointestinal Di: Yes (COLON RESECTION) Gastrointestinal Disorders: Gastroesophageal Reflux, Hiatal Hernia, Ulcer Musculoskeletal History of Musculoskeletal Dis: Yes (BILATERAL KNEES & R HIP REPLACED & BILATERAL FEMUR FX/ORIF'S;FREQ FALLS;WC ) Musculoskeletal Disorders: Osteoporosis, Arthritis, Fractures Endocrine History of Endocrine Disorders: No HEENT History of HEENT Disorders: Yes HEENT Disorders: Glaucoma Hearing Impairment: Hard of Hearing Cancer History of Cancer: No Psychosocial History of Psychiatric Problem: Yes Behavioral Health Disorders: Sleep Difficulties, Anxiety, Depression Integumentary History of Skin or Integumenta: No Blood Transfusions History of Blood Disorders: Yes Adverse Reaction to a Blood Tr: Yes (Transfusion reaction with platelets 05/2019) Family Medical History Significant Family History: Cancer, Diabetes Family Medial History: Alcoholism 19 FATHER Cardiovascular disease 19 MOTHER Colon cancer 19 MOTHER Diabetes mellitus 19 MOTHER Neoplasm 19 MOTHER (colon ca w/ mets to liver ) Respiratory disorder 19 FATHER No Family History of: AIDS Abdominal aortic aneurysm Arthritis Asthma Dementia Drug abuse Hypertension Kidney disease Myocardial infarction Psychosocial problem Seizure disorder Severe allergy Thyroid disease Tuberculosis Review of Systems-General Constitutional: No chills; malaise, weakness EENTM: blurred vision; No epistaxis, No throat swelling Respiratory: No cough, No hemoptysis Cardiovascular: No chest pain; edema; No palpitations Gastrointestinal: No abdominal pain, No jaundice, No nausea, No vomiting Genitourinary: No dysuria, No frequency, No hematuria Musculoskeletal: back pain, joint pain, joint swelling, muscle pain, muscle stiffness Skin: change in color (of legs, but this is chronic); No change in hair/nails Psychiatric/Neurological: Anxiety, Depressed Physical Exam-General Problems Physical Exam Vital Signs Vital Signs - First Documented Capillary Refill : Less Than 3 Seconds General Appearance: WD/WN, no apparent distress Eyes: Bilateral Eye PERRL, Bilateral Eye EOMI HEENT: pharynx normal; No scleral icterus (R), No scleral icterus (L); other (edentulous) Respiratory: lungs clear, normal breath sounds, no respiratory distress, no a ccessory muscle use Cardiovascular: systolic murmur (I-II/), irregularly irregular Gastrointestinal: non tender, soft, no organomegaly Extremities: pedal edema, other (legs are swollen, mildly red and she has wounds on both ankles (all of this is chronic)) Neurologic/Psychiatric: alert Skin: other (Left breast examined, with cutter operator brick. The breast is very red and mildly tender, no masses palpable and no obvious fluid collection) Data Review Labs Laboratory Tests 03/16/23 21:15: Vancomycin Level Trough 13.1 03/17/23 05:22: White Blood Count 5.1, Red Blood Count 3.91, Hemoglobin 12.5, Hematocrit 41, Mean Corpuscular Volume 105H, Mean Corpuscular Hemoglobin 32, Mean Corpuscular Hemoglobin Concent 30L, Red Cell Distribution Width 14.5, Platelet Count 48L, Mean Platelet Volume 13.4H, Immature Granulocyte % (Auto) 0, Neutrophils (%) (Auto) 78H, Lymphocytes (%) (Auto) 13, Monocytes (%) (Auto) 7, Eosinophils (%) (Auto) 2, Basophils (%) (Auto) 0, Neutrophils # (Auto) 4.0, Lymphocytes # (Auto) 0.7L, Monocytes # (Auto) 0.3, Eosinophils # (Auto) 0.1, Basophils # (Auto) 0.0, Immature Granulocyte # (Auto) 0.0, Sodium Level 144, Potassium Level 3.7, Chloride Level 112H, Carbon Dioxide Level 24, Anion Gap 8, Blood Urea Nitrogen 34H, Creatinine 1.39H, Estimat Glomerular Filtration Rate 37, BUN/Creatinine Ratio 24, Glucose Level 72, Calcium Level 7.6L, Corrected Calcium 9.3, Total Bilirubin 0.6, Aspartate Amino Transf (AST/SGOT) 28, Alanine Aminotransferase (ALT/SGPT) 14, Alkaline Phosphatase 81, Total Protein 4.2L, Albumin 1.9L Microbiology 03/15/23 Urine Culture - Final, Complete NO GROWTH 03/15/23 Blood Culture - Preliminary, Resulted No growth Radiology Date of Exam:03/16/23 US BREAST LIMITED LEFT INDICATION: Cellulitis of the left breast. Sonographic interrogation of the 12:00 to 6:00 location of the left breast was performed. No sonographic abnormality is identified. No solid or cystic mass is detected. IMPRESSION: BI-RADS Category 1 No sonographic abnormality is detected. ACR BI-RADS Category 1: Negative. Result letter will be mailed to the patient. Note: At least 10% of breast cancer is not imaged by mammography. Dictated by: Dictated on workstation # [id number] Dict: 03/16/23 1045 Trans: 03/16/23 1544 [facility] [id number] Interpreted by: MAGGIE VAZQUEZ MD Electronically signed by: MAGGIE VAZQUEZ MD 03/16/23 1544 Assessment/Plan Assessment/Plan Assessment/Plan Left Breast Cellulitis B/L LE DVT Chronic Venous Changes Atrial Fibrillation I think pt has a cellulitis, could be due to trauma from lift belt. Would monitor and continue ABX. Nothing surgical to do at this time. Clinical Quality Measures DVT/VTE Risk/Contraindication: Contraindications-Mechi: Other *list below* Other: leg dvt's JOSHUA BELLO DO Mar 17, 2023 11:32
--- NOTE | 2023-03-17 12:39 | Physical Therapy Evaluation ---
PT Evaluation-General Medical Diagnosis Admission Date Mar 15, 2023 at 20:05 Medical Diagnosis: cellulitis left breast Onset Date: Mar 15, 2023 Therapy Diagnosis Therapy Diagnosis: debility/weakness Height/Weight Height (Feet): 5 Height (Inches): 0.00 Weight (Pounds): 123 Weight (Ounces): 0.0 Precautions Precautions/Isolations: Fall Prevention, Standard Precautions Referral Physician: Zakiya Reason for Referral: Evaluation/Treatment Medical History Pertinent Medical History: Arthritis, COPD, Fractures, GERD, HTN, Renal Insufficiency, Thrombosis Current History EMS secondary to weakness x 1 week Social History Home: Assisted Prior Prior Level of Function SCALE: Activities may be completed with or without assistive devices. 0-Qornuopgtd-skdcpfz completes the activity by him/herself with no assistance from a helper. 5-Set-up or Clean-up Assistance-helper sets up or cleans up; patient completes activity. Pinnacle assists only prior to or following the activity. 4-Supervision or Touching Assistance-helper provides verbal cues and/or touching/steadying and/or contact guard assistance as patient completes activity. Assistance may be provided throughout the activity or intermittently. 3-Partial/Moderate Assistance-helper does LESS THAN HALF the effort. Pinnacle lifts, holds or supports trunk or limbs, but provides less than half the effort. 2-Substantial/Maximal Assistance-helper does MORE THAN HALF the effort. Pinnacle lifts or holds trunk or limbs and provides more than half the effort. 2-Vigxojrdv-vqgzzo does ALL the effort. Patient does none of the effort to complete the activity. Or, the assistance of 2 or more helpers is required for the patient to complete the activity. If activity was not attempted, code reason: 7-Patient Refused. 9-Not Applicable-not attempted and the patient did not perform the activity before the current illness, exacerbation or injury. 10-Not Attempted due to Environmental Limitations-(lack of equipment, weather restraints, etc.). 88-Not Attempted due to Medical Conditions or Safety Concerns. Bed Mobility: 2 Transfers (B,C,W/C): 2 Gait: 9 Stairs: 9 Wheelchair Mobility: 2 Indoor Mobility (Ambulation): Not Applicalbe Prior Devices Use: Manual wheelchair PT Evaluation-Current Subjective Patient agrees to therapy. Objective Patient Orientation: Normal For Age ROM/Strength ROM Lower Extremities bilateral LE WFL Strength Lower Extremities 3-/5 grossly bilateral LE all planes Integumentary/Posture Integumentary refer to nursing notes Bladder Incontinence: Zarco Cath Posture trunk flexed posture Neuromuscular (Tone, Coordination, Reflexes) grossly intact Sensory Vision: Wears Glasses Hearing: Impaired Transfers Lying to Sitting/Side of Bed(Q: 2 Sit to Stand (QC): 2 Chair/Sgo-fa-Fbnuy Xfer(QC): 2 Gait Does the Patient Walk?: No and Walking Goal NOT indicated Balance Sitting Static: Fair Sitting Dynamic: Fair Standing Static: Poor Standing Dynamic: Poor Assessment/Needs Patient currently requires max assist with all mobility. Patient will benefit from skilled PT to address functional strength and mobility to improve current LOF. Rehab Potential: Fair PT [facility] Goals Press Smith Helper Goals PT Press Smith Helper Goals Time Frame: Apr 01, 2023 Roll Left & Right (QC): 3 Sit to Lying (QC): 3 Lying-Sitting on Side/Bed(QC): 3 Sit to Stand (QC): 3 Chair/Ujo-sj-Zbvdp Xfer(QC): 3 PT Plan Problem List Problem List: Activity Tolerance, Functional Strength, Safety, Balance, Transfer, Bed Mobility Treatment/Plan Treatment Plan: Continue Plan of Care Treatment Plan: Bed Mobility, Education, Functional Activity Liliana, Functional Strength, Safety, Therapeutic Exercise, Transfers Treatment Duration: Apr 01, 2023 Frequency: 5 times per week Estimated Hrs Per Day: .25 hour per day Time Time In: 1115 Time Out: 1130 DATE: Mar 17, 2023 Total Billed Treatment Time: 15 Total Billed Treatment 1 visit [facility] 15 min DECLAN MCCORMICK PT Mar 17, 2023 12:39
--- NOTE | 2023-03-17 12:53 | Occupational Therapy Eval ---
OT Evaluation-General/PLF Medical Diagnosis Admission Date Mar 15, 2023 at 20:05 Medical Diagnosis: cellulitis left breast Onset Date: Mar 15, 2023 Therapy Diagnosis Therapy Diagnosis: weakness Height/Weight Height (Feet): 5 Height (Inches): 0.00 Weight (Pounds): 123 Weight (Ounces): 0.0 Precautions Precautions/Isolations: Fall Prevention, Standard Precautions Weight Bear Status BLE WBAT for transfers only Referral Physician: Zakiya Referral Reason: Evaluation/Treatment Medical History Pertinent Medical History: Arthritis, COPD, Fractures, GERD, HTN, Renal Insufficiency, Thrombosis Social History Home: Residential ADL-Prior Level of Function SCALE: Activities may be completed with or without assistive devices. 6-Odjyfmorbu-dgsubma completes the activity by him/herself with no assistance from a helper. 5-Set-up or Clean-up Assistance-helper sets up or cleans up; patient completes activity. [place] assists only prior to or following the activity. 4-Supervision or Touching Assistance-helper provides verbal cues and/or touching/steadying and/or contact guard assistance as patient completes activity. Assistance may be provided throughout the activity or intermittently. 3-Partial/Moderate Assistance-helper does LESS THAN HALF the effort. [place] lifts, holds or supports trunk or limbs, but provides less than half the effort. 2-Substantial/Maximal Assistance-helper does MORE THAN HALF the effort. [place] lifts or holds trunk or limbs and provides more than half the effort. 3-Zxpruuqgx-grkbgl does ALL the effort. Patient does none of the effort to complete the activity. Or, the assistance of 2 or more helpers is required for the patient to complete the activity. If activity was not attempted, code reason: 7-Patient Refused. 9-Not Applicable-not attempted and the patient did not perform the activity before the current illness, exacerbation or injury. 10-Not Attempted due to Environmental Limitations-(lack of equipment, weather restraints, etc.). 88-Not Attempted due to Medical Conditions or Safety Concerns. Self Care: Needed Some Help Functional Cognition: Independent Drive Self: No OT Current Status Subjective 3 tangled necklaces, OT unrathered and placed in plastic bag inside zipper of purse. Purse in closet, Patient agrees to therapy Mental Status/Objective Patient Orientation: Person, Place, Time, Situation Attachments: [place] Catheter, IV Current Glasses/Contacts: Yes Upper Extremity ROM BUE ROM WFLS Upper Extremity Coordination FMC/GMC WFLs Upper Extremity Strength 3/5 grossly ADL-Treatment Eating (QC): 6 Oral Hygiene (QC): 5 Shower/Bathe Self (QC): 7 Upper Body Dressing (QC): 4 Lower Body Dressing (QC): 1 On/Off Footwear (QC): 1 Toileting Hygiene (QC): 1 Education OT Patient Education: Correct positioning, Modified ADL techniques, Progress toward Goal/Update tx plan, Purpose of tx/functional activities, Reviewed precautions, Rehab process, Safety issues, Transfer techniques, Use of adapted equipment Teaching Recipient: Patient Teaching Methods: Demonstration, Discussion Response to Teaching: Verbalize Understanding, Reinforcement Needed OT Flight Nurse Goals Flight Nurse Goals Eating (QC): 6 Oral Hygiene (QC): 6 Toileting Hygiene (QC): 5 Shower/Bathe Self (QC): 4 Upper Body Dressing (QC): 6 Lower Body Dressing (QC): 5 On/Off Footwear (QC): 5 1=Demonstrate adherence to instructed precautions during ADL tasks. 2=Patient will verbalize/demonstrate understanding of assistive devices/modifications for ADL. 3=Patient will improve strength/tolerance for activity to enable patient to perform ADL's. OT Education/Plan Problem List/Assessment Assessment: Decreased Activ Tolerance, Decreased UE Strength, Impaired Self-Care Skills Discharge Recommendations Plan/Recommendations: Continue POC Treatment Plan/Plan of Care Treatment,Training & Education: Yes Patient would benefit from OT for education, treatment and training to promote independence in ADL's, mobility, safety and/or upper extremity function for ADL's. Plan of Care: ADL Retraining, Functional Mobility, Group Exercise/Act as Ind, UE Funct Exercise/Act Treatment Duration: Mar 25, 2023 Frequency: 3 times per week (3-5 times per week) Rehab Potential: Fair Time Start Time: 11:20 Stop Time: 11:35 DATE: Mar 17, 2023 Total Time Billed (hr/min): 15 Billed Treatment Time EVM 15 min BRUNA BLOCK OT Mar 17, 2023 12:53
[2023-03-17] MEDS ORDERED: warFARin 5 MG (COUMADIN) TAB PO SCH (18:00)
[2023-03-17] MEDS: FAMOTIDINE 20 MG (PEPCID) TABLET PO SCH (20:02)
[2023-03-17] MEDS: ENOXAPARIN 80 MG/0.8 ML (LOVENOX) SYR SC SCH (20:02)
[2023-03-17] MEDS: TOLTERODINE LA 2 MG (DETROL LA) CAP PO SCH (20:02)
[2023-03-17] MEDS ORDERED: polyethylene glycoL POWDER 17 GM (MIRALAX) PACK PO SCH (21:00)
[2023-03-17] MEDS: VANCOMYCIN 1 GM/NS 250 ML IVPB IV SCH ×2 (22:18)
[2023-03-18] MEDS: PIPERACILLIN SODIUM/TAZOBACTAM 4.5 GM in NS (IVPB) 100 ML IV SCH ×3 (01:47→17:02)
[2023-03-18 03:30] VITALS: BP 108/67
--- NOTE | 2023-03-18 07:10 | Progress Note ---
Subjective Date Seen by a Provider: Mar 18, 2023 Time Seen by a Provider: 11:00 Subjective/Events-last exam Patient doing a little better Left breast is much improved Mastitis status is responded to antibiotics Reviewed labs No major concerns otherwise INR is therapeutic so we will decrease the dose from 5 to 2 mg and DC Lovenox Review of Systems General: Fatigue, Malaise Focused Exam Lactate Level 03/15/23 18:13: Lactic Acid Level 1.05 Time of Focused Exam: 19:00 Objective Exam Last Set of Vital Signs Vital Signs Date Time Temp Pulse Resp B/P (MAP) Pulse Ox O2 Delivery O2 Flow Rate FiO2 03/18/23 03:30 36.7 81 20 108/67 (81) 99 Nasal Cannula 2.00 Capillary Refill : Less Than 3 Seconds I&O Intake and Output 03/18/23 00:00 Intake Total 2180 ml Output Total 450 ml Balance 1730 ml Intake Oral 1830 ml IV Total 350 ml Output Urine Total 450 ml # Bowel Movements 4 General: Alert, Oriented X3, Cooperative, No Acute Distress Lungs: Clear to Auscultation, Normal Air Movement Heart: Regular Rate, Normal S1, Normal S2, No Murmurs Psych/Mental Status: Mental Status NL, Mood NL Results Lab Microbiology 03/15/23 Urine Culture - Final, Complete NO GROWTH 03/15/23 Blood Culture - Preliminary, Resulted No growth Assessment/Plan Assessment/Plan Assess & Plan/Chief Complaint Assessment: Sepsis Left-sided mastitis 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 Girard since it appears abscess could be forming PT and OT Clinical Quality Measures DVT/VTE Risk/Contraindication: Contraindications-Mechi: Other *list below* Other: leg dvt's SARAH CALLEJAS DO Mar 18, 2023 07:10
[2023-03-18 08:00] VITALS: BP 90/61
[2023-03-18] MEDS: DOCUSATE SODIUM 100 MG (COLACE) CAP PO SCH ×2 (08:52→09:25)
[2023-03-18] MEDS: VITAMIN D3 125 MCG (5,000 UNITS) CAPSULE PO SCH (08:52)
[2023-03-18] MEDS: GABAPENTIN 100 MG (NEURONTIN) CAP PO SCH (08:52)
[2023-03-18] MEDS: GABAPENTIN 400 MG (NEURONTIN) CAP PO SCH ×3 (08:52→17:02)
[2023-03-18] MEDS: ASCORBIC ACID (VIT C) 500 MG TABLET PO SCH ×2 (08:52→17:02)
[2023-03-18] MEDS: SENNOSIDES 8.6 MG (SENOKOT) TAB PO SCH ×2 (08:52→09:26)
[2023-03-18] MEDS: morphine ER 30 MG (MS CONTIN) TAB PO SCH ×2 (08:52→20:24)
[2023-03-18] MEDS: PANTOPRAZOLE 40 MG (PROTONIX) TAB PO SCH ×2 (08:52→20:24)
[2023-03-18] MEDS: CALCIUM CARB + VIT D 600 MG (CALCARB + D) TAB PO SCH ×2 (08:52→17:02)
[2023-03-18] MEDS: polyethylene glycoL POWDER 17 GM (MIRALAX) PACK PO SCH (08:54)
[2023-03-18] MEDS: SALIVA STIMULANT GEL 1.5 OZ (BIOTENE) TUBE MM SCH ×2 (08:54→20:24)
[2023-03-18] MEDS: MICONAZOLE 2% POWDER (DESENEX AF) 90 GM TOP SCH ×2 (08:54→20:25)
[2023-03-18] MEDS: oxyCODONE/APAP 10/325MG (PERCOCET 10) TABLET PO SCH ×2 (08:55→17:02)
[2023-03-18] MEDS: ONDANSETRON 4 MG/2 ML (SDV) Z0FRAN IV PRN (09:00)
[2023-03-18 11:41] VITALS: BP 108/67
[2023-03-18] MEDS: RT-ALBUTEROL SULF 2.5 MG/3 ML PRE-MIX VIAL INH SCH ×2 (11:53→22:03)
[2023-03-18 13:49] LABS: BASOPHILS % (AUTO) 0 % (0-10); EOSINOPHILS # (AUTO) 0.1 10^3/uL (0.0-0.3); HEMOGLOBIN 12.8 g/dL (11.5-16.0)
[2023-03-18 13:50] LABS: EOSINOPHILS % (AUTO) 3 % (0-10); HEMATOCRIT 42 % (35-52); LYMPHOCYTES # (AUTO) 0.6 10^3/uL (1.0-4.0); LYMPHOCYTES % (AUTO) 17 % (12-44); MEAN CORPUSCULAR HEMOGLOBIN 32 pg (25-34); MEAN CORPUSCULAR HGB CONC 31 g/dL (32-36); MEAN CORPUSCULAR VOLUME 104 fL (80-99); MEAN PLATELET VOLUME 13.7 fL (9.0-12.2); MONOCYTES # (AUTO) 0.3 10^3/uL (0.0-1.0); MONOCYTES % (AUTO) 10 % (0-12); NEUTROPHILS # (AUTO) 2.4 10^3/uL (1.8-7.8); NEUTROPHILS % (AUTO) 69 % (42-75); WHITE BLOOD COUNT 3.5 10^3/uL (4.3-11.0)
[2023-03-18 13:51] LABS: PLATELET COUNT 52 10^3/uL (130-400)
[2023-03-18 13:56] LABS: ALBUMIN 1.9 GM/DL (3.2-4.5); POTASSIUM 3.5 MMOL/L (3.6-5.0)
[2023-03-18 13:57] LABS: CALCIUM 7.5 MG/DL (8.5-10.1)
[2023-03-18 13:58] LABS: TOTAL PROTEIN 4.4 GM/DL (6.4-8.2)
[2023-03-18 13:59] LABS: INR 2.8 (0.8-1.4); PROTHROMBIN TIME PATIENT 28.9 SEC (12.2-14.7)
[2023-03-18 14:00] LABS: BILIRUBIN,TOTAL 0.5 MG/DL (0.1-1.0)
[2023-03-18 14:02] LABS: CREATININE SERUM 1.32 MG/DL (0.60-1.30)
--- NOTE | 2023-03-18 15:08 | Progress Note - Surgery ---
Subjective Time Seen by a Provider: 10:47 Subjective/Events-last exam Pt seen and examined, no new complaints. She states her breast feels better. Review of Systems Pulmonary: No Dyspnea, No Cough Cardiovascular: No: Chest Pain, Palpitations Gastrointestinal: No: Nausea, Vomiting, Abdominal Pain Focused Exam Lactate Level 03/15/23 18:13: Lactic Acid Level 1.05 Time of Focused Exam: 19:00 Objective Exam Vital Signs Date Time Temp Pulse Resp B/P (MAP) Pulse Ox O2 Delivery O2 Flow Rate FiO2 03/18/23 11:41 36.2 90 16 108/67 (81) 94 Nasal Cannula 2.00 03/18/23 08:00 Room Air 03/18/23 08:00 36.4 84 16 90/61 (71) 93 Nasal Cannula 2.00 03/18/23 03:30 36.7 81 20 108/67 (81) 99 Nasal Cannula 2.00 03/17/23 23:31 36.6 84 18 102/58 (73) 100 Nasal Cannula 2.00 03/17/23 20:18 Nasal Cannula 2.00 03/17/23 19:35 97 Nasal Cannula 2.00 03/17/23 19:33 36.8 89 20 94/64 (74) 97 Nasal Cannula 2.00 03/17/23 15:47 36.9 75 18 99/71 (80) 98 Nasal Cannula 2.00 I & O 03/18/23 07:00 Intake Total 2330 ml Output Total 250 ml Balance 2080 ml Capillary Refill : Less Than 3 Seconds General Appearance: No Apparent Distress, Chronically ill, Thin HEENT: PERRL/EOMI, Other (EDENTULOUS) Respiratory: Lungs Clear, Normal Breath Sounds, No Accessory Muscle Use, No Respiratory Distress Cardiovascular: Regular Rate, Rhythm, No Murmur Extremity: Other (BOTH LEGS WITH SIGNIFICANT EDEMA, AND CHRONIC VENOUS STASIS CHANGES. NO EVIDENCE OF CELLULITIS. NO OPEN WOUNDS NOTED. ) Neurologic/Psychiatric: Alert, Normal Mood/Affect Skin: Other (Left breast now appears a reconciler color almost purple, like a healing bruise) Results Lab Laboratory Tests 03/18/23 13:42: White Blood Count 3.5L, Red Blood Count 4.01, Hemoglobin 12.8, Hematocrit 42, Mean Corpuscular Volume 104H, Mean Corpuscular Hemoglobin 32, Mean Corpuscular Hemoglobin Concent 31L, Red Cell Distribution Width 14.3, Platelet Count 52L, Mean Platelet Volume 13.7H, Immature Granulocyte % (Auto) 0, Neutrophils (%) (Auto) 69, Lymphocytes (%) (Auto) 17, Monocytes (%) (Auto) 10, Eosinophils (%) (Auto) 3, Basophils (%) (Auto) 0, Neutrophils # (Auto) 2.4, Lymphocytes # (Auto) 0.6L, Monocytes # (Auto) 0.3, Eosinophils # (Auto) 0.1, Basophils # (Auto) 0.0, Immature Granulocyte # (Auto) 0.0, Percent Immature Platelet Fraction 16.2H, Prothrombin Time 28.9H, INR Comment 2.8H, Sodium Level 142, Potassium Level 3.5L , Chloride Level 108H, Carbon Dioxide Level 26, Anion Gap 8, Blood Urea Nitrogen 29H, Creatinine 1.32H, Estimat Glomerular Filtration Rate 39, BUN/Creatinine Ratio 22, Glucose Level 122H, Calcium Level 7.5L, Corrected Calcium 9.2, Total Bilirubin 0.5, Aspartate Amino Transf (AST/SGOT) 41H, Alanine Aminotransferase (ALT/SGPT) 20, Alkaline Phosphatase 79, Total Protein 4.4L, Albumin 1.9L Microbiology 03/15/23 Urine Culture - Final, Complete NO GROWTH 03/15/23 Blood Culture - Preliminary, Resulted No growth Assessment/Plan Assessment/Plan Assessment/Plan Left Breast Cellulitis B/L LE DVT Chronic Venous Changes Atrial Fibrillation I think it may be more likel that pt had trauma from lift belt. Continue to monitor and continue ABX. Nothing surgical to do at this time. Clinical Quality Measures DVT/VTE Risk/Contraindication: Contraindications-Mechi: Other *list below* Other: leg dvt's JOSHUA BELLO DO Mar 18, 2023 15:08
[2023-03-18 15:50] VITALS: BP 106/73
[2023-03-18] MEDS ORDERED: warFARin 2 MG (COUMADIN) TAB PO SCH (18:00)
[2023-03-18 20:09] VITALS: BP 102/62
[2023-03-18] MEDS: FAMOTIDINE 20 MG (PEPCID) TABLET PO SCH (20:24)
[2023-03-18] MEDS: TOLTERODINE LA 2 MG (DETROL LA) CAP PO SCH (20:24)
[2023-03-18] MEDS ORDERED: TROUGH ORDER-PHARMACY XX ONE (21:00)
[2023-03-18] MEDS: VANCOMYCIN 1 GM/NS 250 ML IVPB IV SCH ×2 (21:02)
[2023-03-18 23:02] VITALS: BP 94/56
[2023-03-19] VITALS (7 sets, daily range): BP systolic 84–116; BP diastolic 54–67
[2023-03-19] MEDS: PIPERACILLIN SODIUM/TAZOBACTAM 4.5 GM in NS (IVPB) 100 ML IV SCH ×3 (01:36→17:04)
--- NOTE | 2023-03-19 06:22 | Progress Note ---
Subjective Date Seen by a Provider: Mar 19, 2023 Time Seen by a Provider: 09:00 Subjective/Events-last exam Patient doing much better Left breast less erythema Labs reviewed No other major concerns Review of Systems General: Fatigue, Malaise Focused Exam Time of Focused Exam: 19:00 Objective Exam Last Set of Vital Signs Vital Signs Date Time Temp Pulse Resp B/P (MAP) Pulse Ox O2 Delivery O2 Flow Rate FiO2 03/19/23 03:32 36.7 80 18 102/63 (76) 100 Nasal Cannula 2.00 Capillary Refill : Less Than 3 Seconds I&O Intake and Output 03/19/23 00:00 Intake Total 1190 ml Balance 1190 ml Intake Oral 990 ml IV Total 200 ml # Voids 4 # Bowel Movements 4 General: Alert, Oriented X3, Cooperative, No Acute Distress Lungs: Clear to Auscultation, Normal Air Movement Heart: Regular Rate, Normal S1, Normal S2, No Murmurs Psych/Mental Status: Mental Status NL, Mood NL Results Lab Laboratory Tests 03/18/23 13:42: White Blood Count 3.5L, Red Blood Count 4.01, Hemoglobin 12.8, Hematocrit 42, Mean Corpuscular Volume 104H, Mean Corpuscular Hemoglobin 32, Mean Corpuscular Hemoglobin Concent 31L, Red Cell Distribution Width 14.3, Platelet Count 52L, Mean Platelet Volume 13.7H, Immature Granulocyte % (Auto) 0, Neutrophils (%) (Auto) 69, Lymphocytes (%) (Auto) 17, Monocytes (%) (Auto) 10, Eosinophils (%) (Auto) 3, Basophils (%) (Auto) 0, Neutrophils # (Auto) 2.4, Lymphocytes # (Auto) 0.6L, Monocytes # (Auto) 0.3, Eosinophils # (Auto) 0.1, Basophils # (Auto) 0.0, Immature Granulocyte # (Auto) 0.0, Percent Immature Platelet Fraction 16.2H, Prothrombin Time 28.9H, INR Comment 2.8H, Sodium Level 142, Potassium Level 3.5L , Chloride Level 108H, Carbon Dioxide Level 26, Anion Gap 8, Blood Urea Nitrogen 29H, Creatinine 1.32H, Estimat Glomerular Filtration Rate 39, BUN/Creatinine Ratio 22, Glucose Level 122H, Calcium Level 7.5L, Corrected Calcium 9.2, Total Bilirubin 0.5, Aspartate Amino Transf (AST/SGOT) 41H, Alanine Aminotransferase (ALT/SGPT) 20, Alkaline Phosphatase 79, Total Protein 4.4L, Albumin 1.9L 03/18/23 20:21: Vancomycin Level Trough 21.8H Microbiology 03/15/23 Urine Culture - Final, Complete NO GROWTH 03/15/23 Blood Culture - Preliminary, Resulted No growth Assessment/Plan Assessment/Plan Assess & Plan/Chief Complaint Assessment: Sepsis Left-sided mastitis Bilateral DVTs while on Eliquis History of UTIs Bedridden state Constipation Acute on chronic debility Coagulopathy due to warfarin adjusted dose with holding Plan: Pain control IV antibiotics Lovenox and transition to warfarin Supportive care Consult Dr. Girard since it appears abscess could be forming PT and OT Clinical Quality Measures DVT/VTE Risk/Contraindication: Contraindications-Mechi: Other *list below* Other: leg dvt's SARAH CALLEJAS DO Mar 19, 2023 06:22
[2023-03-19 06:38] LABS: BASOPHILS % (AUTO) 0 % (0-10); HEMOGLOBIN 13.5 g/dL (11.5-16.0)
[2023-03-19 06:41] LABS: EOSINOPHILS # (AUTO) 0.1 10^3/uL (0.0-0.3); EOSINOPHILS % (AUTO) 3 % (0-10); HEMATOCRIT 44 % (35-52); LYMPHOCYTES # (AUTO) 0.8 10^3/uL (1.0-4.0); LYMPHOCYTES % (AUTO) 20 % (12-44); MEAN CORPUSCULAR HEMOGLOBIN 32 pg (25-34); MEAN CORPUSCULAR HGB CONC 31 g/dL (32-36); MEAN CORPUSCULAR VOLUME 105 fL (80-99); MEAN PLATELET VOLUME 13.2 fL (9.0-12.2); MONOCYTES # (AUTO) 0.4 10^3/uL (0.0-1.0); MONOCYTES % (AUTO) 10 % (0-12); NEUTROPHILS # (AUTO) 2.7 10^3/uL (1.8-7.8); NEUTROPHILS % (AUTO) 67 % (42-75); PLATELET COUNT 50 10^3/uL (130-400)
[2023-03-19 06:50] LABS: INR 4.7 (0.8-1.4); PROTHROMBIN TIME PATIENT 43.6 SEC (12.2-14.7)
[2023-03-19 07:03] LABS: BILIRUBIN,TOTAL 0.5 MG/DL (0.1-1.0); CALCIUM 7.9 MG/DL (8.5-10.1); CREATININE SERUM 1.41 MG/DL (0.60-1.30); TOTAL PROTEIN 4.5 GM/DL (6.4-8.2)
[2023-03-19] MEDS: RT-ALBUTEROL SULF 2.5 MG/3 ML PRE-MIX VIAL INH SCH ×2 (07:37→19:06)
[2023-03-19] MEDS: GABAPENTIN 100 MG (NEURONTIN) CAP PO SCH (07:58)
[2023-03-19] MEDS: GABAPENTIN 400 MG (NEURONTIN) CAP PO SCH ×3 (07:58→17:03)
[2023-03-19] MEDS: morphine ER 30 MG (MS CONTIN) TAB PO SCH ×2 (07:58→20:13)
[2023-03-19] MEDS: ASCORBIC ACID (VIT C) 500 MG TABLET PO SCH ×2 (07:58→17:03)
[2023-03-19] MEDS: VITAMIN D3 125 MCG (5,000 UNITS) CAPSULE PO SCH (07:58)
[2023-03-19] MEDS: CALCIUM CARB + VIT D 600 MG (CALCARB + D) TAB PO SCH ×2 (07:58→17:03)
[2023-03-19] MEDS: PANTOPRAZOLE 40 MG (PROTONIX) TAB PO SCH ×2 (07:58→20:13)
[2023-03-19] MEDS: oxyCODONE/APAP 10/325MG (PERCOCET 10) TABLET PO SCH ×2 (07:59→17:03)
[2023-03-19] MEDS: MICONAZOLE 2% POWDER (DESENEX AF) 90 GM TOP SCH ×2 (07:59→20:13)
[2023-03-19] MEDS: SALIVA STIMULANT GEL 1.5 OZ (BIOTENE) TUBE MM SCH ×2 (07:59→20:13)
[2023-03-19] MEDS ORDERED: TROUGH ORDER-PHARMACY XX ONE (09:00)
--- NOTE | 2023-03-19 12:15 | Progress Note - Surgery ---
Subjective Time Seen by a Provider: 11:12 Subjective/Events-last exam Pt seen and examined, she has no complaints. States basically no pain and is tolerating diet. Review of Systems Pulmonary: No Dyspnea, No Cough Cardiovascular: No: Chest Pain, Palpitations Gastrointestinal: No: Nausea, Vomiting, Abdominal Pain Focused Exam Time of Focused Exam: 19:00 Objective Exam Vital Signs Date Time Temp Pulse Resp B/P (MAP) Pulse Ox O2 Delivery O2 Flow Rate FiO2 03/19/23 11:20 36.1 83 18 99/61 (74) 95 Room Air 03/19/23 08:39 36.6 75 94 03/19/23 08:00 Room Air 03/19/23 07:42 94 Room Air 0.00 03/19/23 07:37 100 Nasal Cannula 2.00 03/19/23 07:32 36.6 75 16 84/54 (64) 100 Nasal Cannula 2.00 03/19/23 03:32 36.7 80 18 102/63 (76) 100 Nasal Cannula 2.00 03/18/23 23:02 36.0 88 18 94/56 (69) 100 Nasal Cannula 2.00 03/18/23 22:04 95 Nasal Cannula 2.00 03/18/23 20:24 Nasal Cannula 2.00 03/18/23 20:09 36.0 79 16 102/62 (75) 100 Nasal Cannula 2.00 03/18/23 15:50 35.4 75 16 106/73 (84) 87 Room Air 2.00 I & O 03/19/23 07:00 Intake Total 1190 ml Balance 1190 ml Capillary Refill : Less Than 3 Seconds General Appearance: No Apparent Distress, Chronically ill, Thin HEENT: PERRL/EOMI, Other (EDENTULOUS) Respiratory: Lungs Clear, Normal Breath Sounds, No Accessory Muscle Use, No Respiratory Distress Cardiovascular: Regular Rate, Rhythm, No Murmur Extremity: Other (BOTH LEGS WITH SIGNIFICANT EDEMA, AND CHRONIC VENOUS STASIS CHANGES. NO EVIDENCE OF CELLULITIS. NO OPEN WOUNDS NOTED. ) Neurologic/Psychiatric: Alert, Normal Mood/Affect Skin: Other (Left breast now appears a registered pharmacist color almost purple, like a healing bruise and area is smaller) Results Lab Laboratory Tests 03/18/23 13:42: White Blood Count 3.5L, Red Blood Count 4.01, Hemoglobin 12.8, Hematocrit 42, Mean Corpuscular Volume 104H, Mean Corpuscular Hemoglobin 32, Mean Corpuscular Hemoglobin Concent 31L, Red Cell Distribution Width 14.3, Platelet Count 52L, Mean Platelet Volume 13.7H, Immature Granulocyte % (Auto) 0, Neutrophils (%) (Auto) 69, Lymphocytes (%) (Auto) 17, Monocytes (%) (Auto) 10, Eosinophils (%) (Auto) 3, Basophils (%) (Auto) 0, Neutrophils # (Auto) 2.4, Lymphocytes # (Auto) 0.6L, Monocytes # (Auto) 0.3, Eosinophils # (Auto) 0.1, Basophils # (Auto) 0.0, Immature Granulocyte # (Auto) 0.0, Percent Immature Platelet Fraction 16.2H, Prothrombin Time 28.9H, INR Comment 2.8H, Sodium Level 142, Potassium Level 3.5L , Chloride Level 108H, Carbon Dioxide Level 26, Anion Gap 8, Blood Urea Nitrogen 29H, Creatinine 1.32H, Estimat Glomerular Filtration Rate 39, BUN/Creatinine Ratio 22, Glucose Level 122H, Calcium Level 7.5L, Corrected Calcium 9.2, Total Bilirubin 0.5, Aspartate Amino Transf (AST/SGOT) 41H, Alanine Aminotransferase (ALT/SGPT) 20, Alkaline Phosphatase 79, Total Protein 4.4L, Albumin 1.9L 03/18/23 20:21: Vancomycin Level Trough 21.8H 03/19/23 05:57: White Blood Count 4.0L, Red Blood Count 4.20, Hemoglobin 13.5, Hematocrit 44, Mean Corpuscular Volume 105H, Mean Corpuscular Hemoglobin 32, Mean Corpuscular Hemoglobin Concent 31L, Red Cell Distribution Width 14.4, Platelet Count 50L, Mean Platelet Volume 13.2H, Immature Granulocyte % (Auto) 0, Neutrophils (%) (Auto) 67, Lymphocytes (%) (Auto) 20, Monocytes (%) (Auto) 10, Eosinophils (%) (Auto) 3, Basophils (%) (Auto) 0, Neutrophils # (Auto) 2.7, Lymphocytes # (Auto) 0.8L, Monocytes # (Auto) 0.4, Eosinophils # (Auto) 0.1, Basophils # (Auto) 0.0, Immature Granulocyte # (Auto) 0.0, Percent Immature Platelet Fraction 18.2H, Prothrombin Time 43.6H, INR Comment 4.7H, Sodium Level 145, Potassium Level 4.0, Chloride Level 110H, Carbon Dioxide Level 26, Anion Gap 9, Blood Urea Nitrogen 30H, Creatinine 1.41H, Estimat Glomerular Filtration Rate 36, BUN/Creatinine Ratio 21, Glucose Level 78, Calcium Level 7.9L, Corrected Calcium 9.5, Total Bilirubin 0.5, Aspartate Amino Transf (AST/SGOT) 35H, Alanine Aminotransferase (ALT/SGPT) 19, Alkaline Phosphatase 92, Total Protein 4.5L, Albumin 2.0L, Vancomycin Level Trough 21.5H Microbiology 03/15/23 Urine Culture - Final, Complete NO GROWTH 03/15/23 Blood Culture - Preliminary, Resulted No growth Assessment/Plan Assessment/Plan Assessment/Plan Left Breast Cellulitis B/L LE DVT Chronic Venous Changes Atrial Fibrillation Area appears to be healing well, no signs of abscess; can continue ABX (may not really need them). Nothing surgical to do at this time and I will sign off and reconsult if necessary Clinical Quality Measures DVT/VTE Risk/Contraindication: Contraindications-Mechi: Other *list below* Other: leg dvt's JOSHUA BELLO DO Mar 19, 2023 12:15
[2023-03-19] MEDS: FAMOTIDINE 20 MG (PEPCID) TABLET PO SCH (20:13)
[2023-03-19] MEDS: TOLTERODINE LA 2 MG (DETROL LA) CAP PO SCH (20:13)
[2023-03-20 03:44] VITALS: BP 97/55
--- NOTE | 2023-03-20 05:49 | Progress Note ---
Subjective Date Seen by a Provider: Mar 20, 2023 Time Seen by a Provider: 09:00 Subjective/Events-last exam No major issues Wants to stay longer INR 6.2 but no bleeding so will continue to hold coumadin No falls PT OT Left breast improved Review of Systems General: Fatigue, Malaise Focused Exam Time of Focused Exam: 19:00 Objective Exam Last Set of Vital Signs Vital Signs Date Time Temp Pulse Resp B/P (MAP) Pulse Ox O2 Delivery O2 Flow Rate FiO2 03/20/23 03:44 36.2 77 16 97/55 (69) 95 Room Air 0.00 0.00 Capillary Refill : Less Than 3 Seconds I&O Intake and Output 03/20/23 00:00 Intake Total 1500 ml Output Total 425 ml Balance 1075 ml Intake Oral 1300 ml IV Total 200 ml Output Urine Total 375 ml Stool Total 50 ml # Voids 1 General: Alert, Oriented X3, Cooperative, No Acute Distress, Other (frail) Lungs: Clear to Auscultation, Normal Air Movement Heart: Regular Rate, Normal S1, Normal S2, No Murmurs Psych/Mental Status: Mental Status NL, Mood NL Results Lab Laboratory Tests 03/19/23 05:57: White Blood Count 4.0L, Red Blood Count 4.20, Hemoglobin 13.5, Hematocrit 44, Mean Corpuscular Volume 105H, Mean Corpuscular Hemoglobin 32, Mean Corpuscular Hemoglobin Concent 31L, Red Cell Distribution Width 14.4, Platelet Count 50L, Mean Platelet Volume 13.2H, Immature Granulocyte % (Auto) 0, Neutrophils (%) (Auto) 67, Lymphocytes (%) (Auto) 20, Monocytes (%) (Auto) 10, Eosinophils (%) (Auto) 3, Basophils (%) (Auto) 0, Neutrophils # (Auto) 2.7, Lymphocytes # (Auto) 0.8L, Monocytes # (Auto) 0.4, Eosinophils # (Auto) 0.1, Basophils # (Auto) 0.0, Immature Granulocyte # (Auto) 0.0, Percent Immature Platelet Fraction 18.2H, Prothrombin Time 43.6H, INR Comment 4.7H, Sodium Level 145, Potassium Level 4.0, Chloride Level 110H, Carbon Dioxide Level 26, Anion Gap 9, Blood Urea Nitrogen 30H, Creatinine 1.41H, Estimat Glomerular Filtration Rate 36, BUN/Creatinine Ratio 21, Glucose Level 78, Calcium Level 7.9L, Corrected Calcium 9.5, Total Bilirubin 0.5, Aspartate Amino Transf (AST/SGOT) 35H, Alanine Aminotransferase (ALT/SGPT) 19, Alkaline Phosphatase 92, Total Protein 4.5L, Albumin 2.0L, Vancomycin Level Trough 21.5H Microbiology 03/15/23 Urine Culture - Final, Complete NO GROWTH 03/15/23 Blood Culture - Preliminary, Resulted No growth Assessment/Plan Assessment/Plan Assess & Plan/Chief Complaint Assessment: Sepsis Left-sided mastitis Bilateral DVTs while on Eliquis History of UTIs Bedridden state Constipation Acute on chronic debility Coagulopathy due to warfarin adjusted dose with holding Plan: Pain control IV antibiotics Lovenox and transition to warfarin Supportive care Consult Dr. Girard since it appears abscess could be forming PT and OT Clinical Quality Measures DVT/VTE Risk/Contraindication: Contraindications-Mechi: Other *list below* Other: leg dvt's SARAH CALLEJAS DO Mar 20, 2023 05:49
[2023-03-20] MEDS ORDERED: TROUGH ORDER-PHARMACY XX ONE (06:00)
[2023-03-20 07:50] VITALS: BP 97/52
[2023-03-20] MEDS ORDERED: VANCOMYCIN 500 MG/NS 100 ML IV SCH ×2 (08:00)
[2023-03-20] MEDS: PANTOPRAZOLE 40 MG (PROTONIX) TAB PO SCH ×2 (08:11→20:30)
[2023-03-20] MEDS: GABAPENTIN 100 MG (NEURONTIN) CAP PO SCH (08:11)
[2023-03-20] MEDS: CALCIUM CARB + VIT D 600 MG (CALCARB + D) TAB PO SCH ×2 (08:11→17:46)
[2023-03-20] MEDS: ASCORBIC ACID (VIT C) 500 MG TABLET PO SCH ×2 (08:12→17:46)
[2023-03-20] MEDS: SALIVA STIMULANT GEL 1.5 OZ (BIOTENE) TUBE MM SCH ×2 (08:12→20:31)
[2023-03-20] MEDS: VITAMIN D3 125 MCG (5,000 UNITS) CAPSULE PO SCH (08:12)
[2023-03-20] MEDS: morphine ER 30 MG (MS CONTIN) TAB PO SCH ×2 (08:12→20:30)
[2023-03-20] MEDS: MICONAZOLE 2% POWDER (DESENEX AF) 90 GM TOP SCH ×2 (08:12→20:31)
[2023-03-20] MEDS: oxyCODONE/APAP 10/325MG (PERCOCET 10) TABLET PO SCH ×2 (08:12→17:21)
[2023-03-20] MEDS: GABAPENTIN 400 MG (NEURONTIN) CAP PO SCH ×3 (08:12→17:46)
[2023-03-20 08:14] LABS: EOSINOPHILS # (AUTO) 0.1 10^3/uL (0.0-0.3); MEAN CORPUSCULAR VOLUME 102 fL (80-99); NEUTROPHILS % (AUTO) 71 % (42-75)
[2023-03-20] MEDS: RT-ALBUTEROL SULF 2.5 MG/3 ML PRE-MIX VIAL INH SCH ×2 (08:14→20:02)
[2023-03-20 08:16] LABS: BASOPHILS % (AUTO) 0 % (0-10); EOSINOPHILS % (AUTO) 2 % (0-10); HEMATOCRIT 42 % (35-52); LYMPHOCYTES % (AUTO) 17 % (12-44); MEAN CORPUSCULAR HEMOGLOBIN 32 pg (25-34); MEAN CORPUSCULAR HGB CONC 31 g/dL (32-36); MEAN PLATELET VOLUME 13.8 fL (9.0-12.2); MONOCYTES # (AUTO) 0.5 10^3/uL (0.0-1.0); MONOCYTES % (AUTO) 8 % (0-12); NEUTROPHILS # (AUTO) 4.1 10^3/uL (1.8-7.8); PLATELET COUNT 55 10^3/uL (130-400); WHITE BLOOD COUNT 5.7 10^3/uL (4.3-11.0)
[2023-03-20 08:32] LABS: ALBUMIN 1.9 GM/DL (3.2-4.5); BILIRUBIN,TOTAL 0.5 MG/DL (0.1-1.0); CALCIUM 7.7 MG/DL (8.5-10.1); CREATININE SERUM 1.47 MG/DL (0.60-1.30); POTASSIUM 3.4 MMOL/L (3.6-5.0); TOTAL PROTEIN 4.2 GM/DL (6.4-8.2)
[2023-03-20 08:38] LABS: VANCOMYCIN,TROUGH 17.7 UG/ML (10.0-20.0)
[2023-03-20 08:45] LABS: PROTHROMBIN TIME PATIENT 53.6 SEC (12.2-14.7)
[2023-03-20 08:46] LABS: INR 6.2 (0.8-1.4)
[2023-03-20] MEDS: VANCOMYCIN 500 MG/NS 100 ML IV SCH ×2 (09:24)
--- NOTE | 2023-03-20 10:45 | Physical Therapy Daily Note ---
PT Daily Note-Current Subjective Patient agrees to PT. Pain Section J - Health Conditions 1. Rarely or not at all 2. Occasionally 3. Frequently 4. Almost constantly 8. Unable to answer Pain Effect on Sleep: 1 Pain Interference with Therapy: 1 Pain Interference w/Day-to-Day: 1 Mental Status Patient Orientation: Person, Time, Situation Transfers SCALE: Activities may be completed with or without assistive devices. 6-Cnnsheuzsa-qddwfdr completes the activity by him/herself with no assistance from a helper. 5-Set-up or Clean-up Assistance-helper sets up or cleans up; patient completes activity. [place] assists only prior to or following the activity. 4-Supervision or Touching Assistance-helper provides verbal cues and/or touching/steadying and/or contact guard assistance as patient completes activity. Assistance may be provided throughout the activity or intermittently. 3-Partial/Moderate Assistance-helper does LESS THAN HALF the effort. [place] lifts, holds or supports trunk or limbs, but provides less than half the effort. 2-Substantial/Maximal Assistance-helper does MORE THAN HALF the effort. [place] lifts or holds trunk or limbs and provides more than half the effort. 5-Bmlbmtokx-xeufgc does ALL the effort. Patient does none of the effort to complete the activity. Or, the assistance of 2 or more helpers is required for the patient to complete the activity. If activity was not attempted, code reason: 7-Patient Refused. 9-Not Applicable-not attempted and the patient did not perform the activity before the current illness, exacerbation or injury. 10-Not Attempted due to Environmental Limitations-(lack of equipment, weather restraints, etc.). 88-Not Attempted due to Medical Conditions or Safety Concerns. Lying to Sitting/Side of Bed(Q: 2 Sit to Stand (QC): 2 Chair/Xwe-fy-Fqusb Xfer(QC): 2 Toilet Transfer (QC): 2 Assessment Max assist with all mobility. Patient incontinent BM and urine requiring dependent assist to cleanse and change patient. Patient up to recliner after toileting. Patient able to assist with sit to stand and SPT on this date. PT Residential Goals Residential Goals PT Residential Goals Time Frame: Apr 01, 2023 Roll Left & Right (QC): 3 Sit to Lying (QC): 3 Lying-Sitting on Side/Bed(QC): 3 Sit to Stand (QC): 3 Chair/Edl-gh-Uhnqf Xfer(QC): 3 PT Plan Treatment/Plan Treatment Plan: Continue Plan of Care Treatment Plan: Bed Mobility, Education, Functional Activity Liliana, Functional Strength, Safety, Therapeutic Exercise, Transfers Treatment Duration: Apr 01, 2023 Frequency: 5 times per week Estimated Hrs Per Day: .25 hour per day Time Time In: 916 Time Out: 934 DATE: Mar 20, 2023 Total Billed Treatment Time: 18 Total Billed Treatment 1 visit FA 18 min DECLAN MCCORMICK PT Mar 20, 2023 10:45
--- NOTE | 2023-03-20 10:57 | Occupational Ther Daily Note ---
OT Current Status-Daily Note Mental Status/Objective Patient Orientation: Person, Place, Time, Situation (fearful and terarful of retruning to SNF. patient concerned w staff turnover, less personal care, current level of weakness, inability to perform PLOF) ADL-Treatment Therapy Code Descriptions/Definitions Functional [place] Measure: 0=Not Assessed/NA 4=Minimal Assistance 1=Total Assistance 5=Supervision or Setup 2=Maximal Assistance 6=Modified [place] 3=Moderate Assistance 7=Complete IndependenceSCALE: Activities may be completed with or without assistive devices. 7-Oktlixltpm-gwyevql completes the activity by him/herself with no assistance from a helper. 5-Set-up or Clean-up Assistance-helper sets up or cleans up; patient completes activity. [place] assists only prior to or following the activity. 4-Supervision or Touching Assistance-helper provides verbal cues and/or touching/steadying and/or contact guard assistance as patient completes activity. Assistance may be provided throughout the activity or intermittently. 3-Partial/Moderate Assistance-helper does LESS THAN HALF the effort. [place] lifts, holds or supports trunk or limbs, but provides less than half the effort. 2-Substantial/Maximal Assistance-helper does MORE THAN HALF the effort. [place] lifts or holds trunk or limbs and provides more than half the effort. 4-Dgskdulpi-qhpwbz does ALL the effort. Patient does none of the effort to complete the activity. Or, the assistance of 2 or more helpers is required for the patient to complete the activity. If activity was not attempted, code reason: 7-Patient Refused. 9-Not Applicable-not attempted and the patient did not perform the activity before the current illness, exacerbation or injury. 10-Not Attempted due to Environmental Limitations-(lack of equipment, weather restraints, etc.). 88-Not Attempted due to Medical Conditions or Safety Concerns. 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 2=Patient will verbalize/demonstrate understanding of assistive devices/modifications for ADL. 3=Patient will improve strength/tolerance for activity to enable patient to perform ADL's. OT Education/Plan Problem List/Assessment Assessment: Decreased Activ Tolerance, Decreased UE Strength, Dependent Transfers, Impaired Funct Balance, Impaired Self-Care Skills Discharge Recommendations Plan/Recommendations: Continue POC Treatment Plan/Plan of Care Patient would benefit from OT for education, treatment and training to promote independence in ADL's, mobility, safety and/or upper extremity function for ADL's. Plan of Care: ADL Retraining, Functional Mobility, Group Exercise/Act as Ind, UE Funct Exercise/Act Treatment Duration: Mar 25, 2023 Frequency: 3 times per week (3-5 times per week) Estimated Hrs Per Day: .25 hour per day Agreement: Yes Rehab Potential: Fair Positioned in recliner, post toileting and hygiene, gown change. All needs met Time Start Time: 09:18 Stop Time: 09:37 DATE: Mar 20, 2023 Total Time Billed (hr/min): 19 Billed Treatment Time ADL 19 min BRUNA BLOCK OT Mar 20, 2023 10:57
[2023-03-20 11:35] VITALS: BP 116/65
[2023-03-20 15:47] VITALS: BP 113/68
[2023-03-20 19:27] VITALS: BP 99/55
[2023-03-20] MEDS: FAMOTIDINE 20 MG (PEPCID) TABLET PO SCH (20:30)
[2023-03-20] MEDS: TOLTERODINE LA 2 MG (DETROL LA) CAP PO SCH (20:30)
[2023-03-20 23:07] VITALS: BP 93/62
[2023-03-21 04:04] VITALS: BP 91/61
[2023-03-21 05:27] LABS: BASOPHILS % (AUTO) 0 % (0-10)
[2023-03-21 05:28] LABS: EOSINOPHILS # (AUTO) 0.3 10^3/uL (0.0-0.3); EOSINOPHILS % (AUTO) 5 % (0-10); HEMATOCRIT 42 % (35-52); LYMPHOCYTES # (AUTO) 1.3 10^3/uL (1.0-4.0); LYMPHOCYTES % (AUTO) 23 % (12-44); MEAN CORPUSCULAR HEMOGLOBIN 32 pg (25-34); MEAN CORPUSCULAR HGB CONC 31 g/dL (32-36); MEAN CORPUSCULAR VOLUME 103 fL (80-99); MEAN PLATELET VOLUME 13.4 fL (9.0-12.2); MONOCYTES # (AUTO) 0.6 10^3/uL (0.0-1.0); MONOCYTES % (AUTO) 11 % (0-12); NEUTROPHILS # (AUTO) 3.3 10^3/uL (1.8-7.8); NEUTROPHILS % (AUTO) 60 % (42-75); PLATELET COUNT 59 10^3/uL (130-400); WHITE BLOOD COUNT 5.5 10^3/uL (4.3-11.0)
[2023-03-21 05:44] LABS: INR 3.6 (0.8-1.4); PROTHROMBIN TIME PATIENT 35.2 SEC (12.2-14.7)
[2023-03-21 05:54] LABS: ALBUMIN 1.8 GM/DL (3.2-4.5); BILIRUBIN,TOTAL 0.5 MG/DL (0.1-1.0); CALCIUM 7.8 MG/DL (8.5-10.1); CREATININE SERUM 1.5 MG/DL (0.60-1.30); POTASSIUM 3.9 MMOL/L (3.6-5.0); TOTAL PROTEIN 4.3 GM/DL (6.4-8.2)
[2023-03-21 07:40] VITALS: BP 100/59
[2023-03-21] MEDS: RT-ALBUTEROL SULF 2.5 MG/3 ML PRE-MIX VIAL INH SCH (08:17)
[2023-03-21] MEDS: VITAMIN D3 125 MCG (5,000 UNITS) CAPSULE PO SCH (08:49)
[2023-03-21] MEDS: GABAPENTIN 100 MG (NEURONTIN) CAP PO SCH (08:49)
[2023-03-21] MEDS: VANCOMYCIN 500 MG/NS 100 ML IV SCH ×2 (08:49)
[2023-03-21] MEDS: GABAPENTIN 400 MG (NEURONTIN) CAP PO SCH ×2 (08:49→13:34)
[2023-03-21] MEDS: ASCORBIC ACID (VIT C) 500 MG TABLET PO SCH (08:50)
[2023-03-21] MEDS: oxyCODONE/APAP 10/325MG (PERCOCET 10) TABLET PO SCH (08:50)
[2023-03-21] MEDS: morphine ER 30 MG (MS CONTIN) TAB PO SCH (08:50)
[2023-03-21] MEDS: PANTOPRAZOLE 40 MG (PROTONIX) TAB PO SCH (08:50)
[2023-03-21 11:12] VITALS: BP 89/59
[2023-03-21] MEDS ORDERED: DIPH25TA65 PO (12:27)
[2023-03-21] MEDS ORDERED: GABA-486 PO (12:27)
[2023-03-21] MEDS ORDERED: CHOL500044 PO (12:27)
[2023-03-21] MEDS ORDERED: LOTE5DRO OD (12:27)
[2023-03-21] MEDS ORDERED: BISA5TAB20 PO (12:27)
[2023-03-21] MEDS ORDERED: ARGI1POW4 PO (12:27)
[2023-03-21] MEDS ORDERED: PANT40TA52 PO (12:27)
[2023-03-21] MEDS ORDERED: ONDA-106 PO (12:27)
[2023-03-21] MEDS ORDERED: MORP-69 PO (12:27)
[2023-03-21] MEDS ORDERED: ACET-2267 PO (12:27)
[2023-03-21] MEDS ORDERED: GABA800T10 PO (12:27)
[2023-03-21] MEDS ORDERED: SALI45SP MM (12:27)
[2023-03-21] MEDS ORDERED: DOCU-143 PO (12:27)
[2023-03-21] MEDS ORDERED: ASCO-262 PO (12:27)
[2023-03-21] MEDS ORDERED: NALO25TA PO (12:27)
[2023-03-21] MEDS ORDERED: CALC-1026 PO (12:27)
[2023-03-21] MEDS ORDERED: POLY15DR14 OU (12:27)
[2023-03-21] MEDS ORDERED: FAMO20TA5 PO (12:27)
[2023-03-21] MEDS ORDERED: OXYC-556 PO (12:27)
[2023-03-21] MEDS ORDERED: WRF1T PO (12:27)
[2023-03-21] MEDS ORDERED: SODI5POW2 PO (12:27)
[2023-03-21] MEDS ORDERED: TOLT2CAP21 PO (12:27)
[2023-03-21] MEDS ORDERED: AMOX1TAB12 PO (12:29)
--- NOTE | 2023-03-21 12:32 | Discharge Inst-Skilled Nursing ---
Discharge Inst-Skilled NF Reconcile Patient Problems Problems Reviewed?: Yes Chief Complaint Chief complaint: Left-sided mastitis bilateral DVTs while on Eliquis HPI: This is an 87-year-old female [facility] resident of [facility]. Hurtado is essentially bedridden but has a history of DVTs and into the ER with left breast redness and pain and found to have left-sided mastitis. Upon further work-up she was found to have bilateral DVTs and she has been compliant taking her Eliquis. She was placed on Lovenox in the meantime. Her sister is at the bedside and does not know much more information. We will maintain IV antibiotics and closely monitor. Patient Instructions Patient Problems: Left breast mastitis Bilateral lower leg DVT's while on Eliquis so started Warfarin Goal: [place] Patient Instructions: Needs PT/INR tomorrow, 03/22/23 Consult/Follow Up/Orders Follow Up Appt.: PCP [place] rounds Skilled NF Admit to: [facility] Certification ([facility]) I certify that [facility] services are required to be given on an inpatient basis because of the above named patient's need for usp care on a continuing basis for the conditions(s) for which he/she was receiving inpatient hospital services prior to his/her transfer to the [facility]. Detention Facility Order: Nursing Services, Slip Box Changer-Evaluate & Treat, Physical Therapy-Evaluate & Treat Oxygen Delivery Method: Room Air Discharge Diet: Coumadin Patient Diet Daily Activity as Tolerated: Yes Resuscitation Status: Do Not Resuscitate New & Resume Previous Orders New Medications: Amoxicillin/Potassium Clav (Amox Tr-K Clv 875-125 mg Tab) 875 Mg-125 Mg Tablet 1 EACH PO BID, #4 TAB Warfarin Sodium (Warfarin Sodium) 1 Mg Tablet 1 MG PO DAILY, #14 TAB Changed Medications: Cholecalciferol (Vitamin D3) (Vitamin D3) 125 Mcg (5000 Unit) Tablet 125 MCG PO DAILY, #30 TAB (Changed from: Cholecalciferol (Vitamin D3) (Vitamin D3) 125 Mcg Tablet 125 Mcg PO DAILY) Continued Medications: Acetaminophen (Tylenol Extra Strength) 500 Mg Tablet 500 MG PO TID, #30 TAB (This prescription has been renewed) Arginine/Glutamine/Calcium Hmb (Car Packet) 7 Gram-7 Gram-1.5 Gram Powd.pack 1 EACH PO DAILY, #30 EACH (This prescription has been renewed) Ascorbate Calcium (Vitamin C) 500 Mg Tablet 500 MG PO BID, #30 TAB (This prescription has been renewed) Bisacodyl (Bisacodyl) 5 Mg Tablet.dr 10 MG PO DAILY PRN for CONSTIPATION-4TH LINE, #10 TAB (This prescription has been renewed) Calcium Carbonate/Vitamin D3 (Calcium 600 + Vit D 400 Tablet) 600 Mg Calcium-10 Mcg (400 Unit) Tablet 1 EACH PO BID, #30 TAB (This prescription has been renewed) Diphenhydramine HCl (Benadryl Allergy) 25 Mg Tablet 25 MG PO BID PRN for ITCHING, #30 TAB (This prescription has been renewed) Docusate Sodium (Colace) 100 Mg Capsule 100 MG PO BID, #30 CAP (This prescription has been renewed) Famotidine (Famotidine) 20 Mg Tablet 20 MG PO BID, #60 TAB (This prescription has been renewed) Gabapentin (Gabapentin) 800 Mg Tablet 800 MG PO TIDWM, #90 TAB (This prescription has been renewed) Gabapentin (Gabapentin) 100 Mg Capsule 100 MG PO DAILY, #30 CAP (This prescription has been renewed) Loteprednol Etabonate (Loteprednol Etabonate) 0.5 % Drops.gel 1 DROP OD DAILY, #1 EA (This prescription has been renewed) Morphine Sulfate (Morphine Sulfate ER) 30 Mg Tablet.er 30 MG PO BID, #60 TAB (This prescription has been renewed) Naloxegol Oxalate (Movantik) 25 Mg Tablet 25 MG PO DAILY, #30 TAB (This prescription has been renewed) Ondansetron HCl (Ondansetron HCl) 8 Mg Tablet 8 MG PO Q8H PRN for NAUSEA/VOMITING-1ST LINE, #30 TAB (This prescription has been renewed) Oxycodone HCl/Acetaminophen (Oxycodone-Acetaminophen 10-325) 10 Mg-325 Mg Tablet 1 EA PO 1000,1800, #60 TAB (This prescription has been renewed) Pantoprazole Sodium (Pantoprazole Sodium) 40 Mg Tablet.dr 40 MG PO BID, #60 TAB (This prescription has been renewed) Polyvinyl Alcohol/Povidone (Artificial Tears Drops) 0.5 %-0.6 % Drops 1 DROP OU Q4H PRN for DRY EYES, #1 EACH (This prescription has been renewed) Saliva Stimulant Agents Comb.3 (Biotene Moisturizing Mouth) 1 Each [place] 1 SPRAY MM BID, #1 EACH (This prescription has been renewed) Sodium Zirconium Cyclosilicate (Lokelma) 5 Gram Powd.pack 5 GM PO Q48H, #15 EACH (This prescription has been renewed) Tolterodine Tartrate (Tolterodine Tartrate ER) 2 Mg Cap.er.24h 2 MG PO HS, #30 CAP (This prescription has been renewed) Discontinued Medications: Apixaban (Eliquis) 2.5 Mg Tablet 2.5 MG PO BID, TAB Magnesium Hydroxide (Milk of Magnesia) 400 Mg/5 Ml Oral.susp 15-30 ML PO BID PRN for CONSTIPATION-7TH LINE, ML Polyethylene Glycol 3350 (Miralax) 17 Gm Powd.pack 17 GM PO DAILY, EACH Josephine Sigala Mar 21, 2023 12:29 JOSEPHINE SIGALA DO Mar 21, 2023 12:32
--- NOTE | 2023-03-21 12:32 | Discharge Summary ---
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 Hypertension Hyperlipidemia Debility Advanced age Discharge Summary Discharge Physical Examination Allergies: Coded Allergies: adhesive tape (Verified Allergy, Mild, RASH, 08/29/20) aspirin (Verified Allergy, Unknown, 08/29/20) meperidine (Verified Allergy, Unknown, 08/29/20) nitrofurantoin (Verified Allergy, Unknown, 08/29/20) Uncoded Allergies: SURGICAL TAPE (Allergy, Unknown, 05/14/07) Vitals & I&Os Vital Signs Date Time Temp Pulse Resp B/P (MAP) Pulse Ox O2 Delivery O2 Flow Rate FiO2 03/21/23 16:21 36.2 62 20 89/59 100 Room Air 2.00 General Appearance: Alert, Oriented X3, Cooperative Respiratory: Clear to Auscultation Cardiovascular: Regular Rate Psych/Mental Status: Mental Status NL Hospital Course Was the Problem List Reviewed?: Yes 406: Patient had an uneventful hospital course although lengthy. She was admitted for sepsis and left breast mastitis and was covered with empiric broad- spectrum antibiotics due to facility acquired infection. She had a diagnosis of bilateral lower extremity DVTs while maintained on Eliquis so that was discontinued patient was bridged with Lovenox and started Coumadin which resulted in coagulopathy requiring holding the dose and decreasing it at time of discharge. Overall she did well she did participate in PT and OT I will order skilled care. Overall prognosis very poor given her advanced age and just severe debility and nearly bedridden status. She was restarted on all of her home medication also. Labs (last 24 hrs) Laboratory Tests 03/15/23 18:02: White Blood Count 10.9, Red Blood Count 4.58, Hemoglobin 14.7, Hematocrit 48, Mean Corpuscular Volume 104H, Mean Corpuscular Hemoglobin 32, Mean Corpuscular Hemoglobin Concent 31L, Red Cell Distribution Width 14.5, Platelet Count 73L, Mean Platelet Volume 13.4H, Immature Granulocyte % (Auto) 0, Neutrophils (%) (Auto) 82H, Lymphocytes (%) (Auto) 13, Monocytes (%) (Auto) 5, Eosinophils (%) (Auto) 0, Basophils (%) (Auto) 0, Neutrophils # (Auto) 8.9H, Lymphocytes # (Auto) 1.4, Monocytes # (Auto) 0.5, Eosinophils # (Auto) 0.0, Basophils # (Auto) 0.0, Immature Granulocyte # (Auto) 0.0, Percent Immature Platelet Fraction 15.3H , Prothrombin Time 21.1H, INR Comment 1.8H, Activated Partial Thromboplast Time 34, Sodium Level 144, Potassium Level 4.4, Chloride Level 107, Carbon Dioxide Level 28, Anion Gap 9, Blood Urea Nitrogen 42H, Creatinine 1.55H, Estimat Gl omerular Filtration Rate 32, BUN/Creatinine Ratio 27, Glucose Level 110H, Calcium Level 8.4L, Corrected Calcium 9.6, Magnesium Level 1.8, Total Bilirubin 0.6, Aspartate Amino Transf (AST/SGOT) 42H, Alanine Aminotransferase (ALT/SGPT) 21, Alkaline Phosphatase 94, Total Protein 5.4L, Albumin 2.5L, TSH [place] Testing 1.82, Smear Scan 03/15/23 18:09: Influenza Type A (RT-PCR) Not Detected, Influenza Type B (RT-PCR) Not Detected, SARS-CoV-2 RNA (RT-PCR) Not Detected 03/15/23 18:13: Lactic Acid Level 1.05 03/15/23 18:26: Urine Color YELLOW, Urine Clarity CLEAR, Urine pH 5.5, Urine Specific [place] 1.020, Urine Protein NEGATIVE, Urine Glucose (UA) NEGATIVE, Urine Ketones NEGATIVE, Urine Nitrite NEGATIVE, Urine Bilirubin NEGATIVE, Urine Urobilinogen 1.0, Urine Leukocyte Esterase NEGATIVE, Urine RBC (Auto) NEGATIVE, Urine RBC 0- 2, Urine WBC NONE, Urine Squamous Epithelial Cells 0-2, Urine Crystals PRESENTH, Urine Amorphous Sediment FEW GERMAN URATESH, Urine Bacteria TRACE, Urine Casts PRESENT, Urine Hyaline Casts 2-5H, Urine Mucus MODERATEH, Urine Culture Indicated NO 03/15/23 20:05: Lab Scanned Report Referred Lab Report 03/16/23 05:14: Sodium Level 144, Potassium Level 3.7, Chloride Level 111H, Carbon Dioxide Level 27, Anion Gap 6, Blood Urea Nitrogen 37H, Creatinine 1.29, Estimat Glomerular Filtration Rate 40, BUN/Creatinine Ratio 29, Glucose Level 76, Calcium Level 7.8L, Corrected Calcium 9.5, Total Bilirubin 0.7, Aspartate Amino Transf (AST/SGOT) 22, Alanine Aminotransferase (ALT/SGPT) 16, Alkaline Phosphatase 77, Total Protein 4.2L, Albumin 1.9L 03/16/23 05:50: White Blood Count 7.4, Red Blood Count 3.93, Hemoglobin 12.4, Hematocrit 41, Mean Corpuscular Volume 105H, Mean Corpuscular Hemoglobin 32, Mean Corpuscular Hemoglobin Concent 30L, Red Cell Distribution Width 14.3, Platelet Count 54L, Mean Platelet Volume 13.3H, Immature Granulocyte % (Auto) 0, Neutrophils (%) (Auto) 80H, Lymphocytes (%) (Auto) 12, Monocytes (%) (Auto) 6, Eosinophils (%) (Auto) 2, Basophils (%) (Auto) 0, Neutrophils # (Auto) 5.9, Lymphocytes # (Auto) 0.9L, Monocytes # (Auto) 0.4, Eosinophils # (Auto) 0.1, Basophils # (Auto) 0.0, Immature Granulocyte # (Auto) 0.0, Percent Immature Platelet Fraction 15.2H, Smear Scan YES 03/16/23 21:15: Vancomycin Level Trough 13.1 03/17/23 05:22: White Blood Count 5.1, Red Blood Count 3.91, Hemoglobin 12.5, Hematocrit 41, Mean Corpuscular Volume 105H, Mean Corpuscular Hemoglobin 32, Mean Corpuscular Hemoglobin Concent 30L, Red Cell Distribution Width 14.5, Platelet Count 48L, Mean Platelet Volume 13.4H, Immature Granulocyte % (Auto) 0, Neutrophils (%) (Auto) 78H, Lymphocytes (%) (Auto) 13, Monocytes (%) (Auto) 7, Eosinophils (%) (Auto) 2, Basophils (%) (Auto) 0, Neutrophils # (Auto) 4.0, Lymphocytes # (Auto) 0.7L, Monocytes # (Auto) 0.3, Eosinophils # (Auto) 0.1, Basophils # (Auto) 0.0, Immature Granulocyte # (Auto) 0.0, Sodium Level 144, Potassium Level 3.7, Chloride Level 112H, Carbon Dioxide Level 24, Anion Gap 8, Blood Urea Nitrogen 34H, Creatinine 1.39H, Estimat Glomerular Filtration Rate 37, BUN/Creatinine Ratio 24, Glucose Level 72, Calcium Level 7.6L, Corrected Calcium 9.3, Total Bilirubin 0.6, Aspartate Amino Transf (AST/SGOT) 28, Alanine Aminotransferase (ALT/SGPT) 14, Alkaline Phosphatase 81, Total Protein 4.2L, Albumin 1.9L 03/18/23 13:42: White Blood Count 3.5L, Red Blood Count 4.01, Hemoglobin 12.8, Hematocrit 42, Mean Corpuscular Volume 104H, Mean Corpuscular Hemoglobin 32, Mean Corpuscular Hemoglobin Concent 31L, Red Cell Distribution Width 14.3, Platelet Count 52L, Mean Platelet Volume 13.7H, Immature Granulocyte % (Auto) 0, Neutrophils (%) (Auto) 69, Lymphocytes (%) (Auto) 17, Monocytes (%) (Auto) 10, Eosinophils (%) (Auto) 3, Basophils (%) (Auto) 0, Neutrophils # (Auto) 2.4, Lymphocytes # (Auto) 0.6L, Monocytes # (Auto) 0.3, Eosinophils # (Auto) 0.1, Basophils # (Auto) 0.0, Immature Granulocyte # (Auto) 0.0, Sodium Level 142, Potassium Level 3.5L, Chloride Level 108H, Carbon Dioxide Level 26, Anion Gap 8, Blood Urea Nitrogen 29H, Creatinine 1.32H, Estimat Glomerular Filtration Rate 39, BUN/Creatinine Ratio 22, Glucose Level 122H, Calcium Level 7.5L, Corrected Calcium 9.2, Total Bilirubin 0.5, Aspartate Amino Transf (AST/SGOT) 41H, Alanine Aminotransferase (ALT/SGPT) 20, Alkaline Phosphatase 79, Total Protein 4.4L, Albumin 1.9L, Percent Immature Platelet Fraction 16.2H, Prothrombin Time 28.9H, INR Comment 2.8H 03/18/23 20:21: Vancomycin Level Trough 21.8H 03/19/23 05:57: White Blood Count 4.0L, Red Blood Count 4.20, Hemoglobin 13.5, Hematocrit 44, Mean Corpuscular Volume 105H, Mean Corpuscular Hemoglobin 32, Mean Corpuscular Hemoglobin Concent 31L, Red Cell Distribution Width 14.4, Platelet Count 50L, Mean Platelet Volume 13.2H, Immature Granulocyte % (Auto) 0, Neutrophils (%) (Auto) 67, Lymphocytes (%) (Auto) 20, Monocytes (%) (Auto) 10, Eosinophils (%) (Auto) 3, Basophils (%) (Auto) 0, Neutrophils # (Auto) 2.7, Lymphocytes # (Auto) 0.8L, Monocytes # (Auto) 0.4, Eosinophils # (Auto) 0.1, Basophils # (Auto) 0.0, Immature Granulocyte # (Auto) 0.0, Sodium Level 145, Potassium Level 4.0, Chloride Level 110H, Carbon Dioxide Level 26, Anion Gap 9, Blood Urea Nitrogen 30H, Creatinine 1.41H, Estimat Glomerular Filtration Rate 36, BUN/Creatinine Ratio 21, Glucose Level 78, Calcium Level 7.9L, Corrected Calcium 9.5, Total Bilirubin 0.5, Aspartate Amino Transf (AST/SGOT) 35H, Alanine Aminotransferase (ALT/SGPT) 19, Alkaline Phosphatase 92, Total Protein 4.5L, Albumin 2.0L, Percent Immature Platelet Fraction 18.2H, Prothrombin Time 43.6H, INR Comment 4.7H, Vancomycin Level Trough 21.5H 03/20/23 08:05: White Blood Count 5.7, Red Blood Count 4.08, Hemoglobin 13.0, Hematocrit 42, Mean Corpuscular Volume 102H, Mean Corpuscular Hemoglobin 32, Mean Corpuscular Hemoglobin Concent 31L, Red Cell Distribution Width 14.5, Platelet Count 55L, Mean Platelet Volume 13.8H, Immature Granulocyte % (Auto) 0, Neutrophils (%) (Auto) 71, Lymphocytes (%) (Auto) 17, Monocytes (%) (Auto) 8, Eosinophils (%) (Auto) 2, Basophils (%) (Auto) 0, Neutrophils # (Auto) 4.1, Lymphocytes # (Auto) 1.0, Monocytes # (Auto) 0.5, Eosinophils # (Auto) 0.1, Basophils # (Auto) 0.0, Immature Granulocyte # (Auto) 0.0, Percent Immature Platelet Fraction 16.3H, Prothrombin Time 53.6*H, INR Comment 6.2*H, Sodium Level 140, Potassium Level 3.4L, Chloride Level 110H, Carbon Dioxide Level 25, Anion Gap 5, Blood Urea Nitrogen 31H, Creatinine 1.47H, Estimat Glomerular Filtration Rate 34, BUN/Creatinine Ratio 21, Glucose Level 115H, Calcium Level 7.7L, Corrected Calcium 9.4, Total Bilirubin 0.5, Aspartate Amino Transf (AST/SGOT) 25, Alanine Aminotransferase (ALT/SGPT) 17, Alkaline Phosphatase 85, Total Protein 4.2L, Albumin 1.9L, Vancomycin Level Trough 17.7 03/21/23 05:17: White Blood Count 5.5, Red Blood Count 4.06, Hemoglobin 13.0, Hematocrit 42, M alpa Corpuscular Volume 103H, Mean Corpuscular Hemoglobin 32, Mean Corpuscular Hemoglobin Concent 31L, Red Cell Distribution Width 14.2, Platelet Count 59L, Mean Platelet Volume 13.4H, Immature Granulocyte % (Auto) 0, Neutrophils (%) (Auto) 60, Lymphocytes (%) (Auto) 23, Monocytes (%) (Auto) 11, Eosinophils (%) (Auto) 5, Basophils (%) (Auto) 0, Neutrophils # (Auto) 3.3, Lymphocytes # (Auto) 1.3, Monocytes # (Auto) 0.6, Eosinophils # (Auto) 0.3, Basophils # (Auto) 0.0, Immature Granulocyte # (Auto) 0.0, Percent Immature Platelet Fraction 16.8H, Prothrombin Time 35.2H, INR Comment 3.6H, Sodium Level 139, Potassium Level 3.9, Chloride Level 109H, Carbon Dioxide Level 23, Anion Gap 7, Blood Urea Nitrogen 36H, Creatinine 1.50H, Estimat Glomerular Filtration Rate 34, BUN/Creatinine Ratio 24, Glucose Level 79, Calcium Level 7.8L, Corrected Calcium 9.6, Total Bilirubin 0.5, Aspartate Amino Transf (AST/SGOT) 23, Alanine Aminotransferase (ALT/SGPT) 15, Alkaline Phosphatase 85, Total Protein 4.3L, Albumin 1.8L Microbiology 03/15/23 Urine Culture - Final, Complete NO GROWTH 03/15/23 Blood Culture - Final, Complete No growth Pending Labs Microbiology Date/Time Source Procedure Growth Status 03/15/23 18:26 Urine [place] Cath Urine Culture - Final NO GROWTH Complete 03/15/23 18:13 Peripheral Lt Ac Blood Culture - Final No growth Complete 03/15/23 18:13 Peripheral Rt Ac Blood Culture - Final No growth Complete Laboratory Tests 03/15/23 18:02: White Blood Count 10.9, Red Blood Count 4.58, Hemoglobin 14.7, Hematocrit 48, Mean Corpuscular Volume 104, Mean Corpuscular Hemoglobin 32, Mean Corpuscular Hemoglobin Concent 31, Red Cell Distribution Width 14.5, Platelet Count 73, Mean Platelet Volume 13.4, Immature Granulocyte % (Auto) 0, Neutrophils (%) (Auto) 82, Lymphocytes (%) (Auto) 13, Monocytes (%) (Auto) 5, Eosinophils (%) (Auto) 0, Basophils (%) (Auto) 0, Neutrophils # (Auto) 8.9, Lymphocytes # (Auto) 1.4, Monocytes # (Auto) 0.5, Eosinophils # (Auto) 0.0, Basophils # (Auto) 0.0, Immature Granulocyte # (Auto) 0.0, Percent Immature Platelet Fraction 15.3, Prothrombin Time 21.1, INR Comment 1.8, Activated Partial Thromboplast Time 34, Sodium Level 144, Potassium Level 4.4, Chloride Level 107, Carbon Dioxide Level 28, Anion Gap 9, Blood Urea Nitrogen 42, Creatinine 1.55, Estimat Glomerular Filtration Rate 32, BUN/Creatinine Ratio 27, Glucose Level 110, Calcium Level 8.4, Corrected Calcium 9.6, Magnesium Level 1.8, Total Bilirubin 0.6, Aspartate Amino Transf (AST/SGOT) 42, Alanine Aminotransferase (ALT/SGPT) 21, Alkaline Phosphatase 94, Total Protein 5.4, Albumin 2.5, TSH [place] Testing 1.82, Smear Scan 03/15/23 18:09: Influenza Type A (RT-PCR) Not Detected, Influenza Type B (RT-PCR) Not Detected, SARS-CoV-2 RNA (RT-PCR) Not Detected 03/15/23 18:13: Lactic Acid Level 1.05 03/15/23 18:26: Urine Color YELLOW, Urine Clarity CLEAR, Urine pH 5.5, Urine Specific [place] 1.020, Urine Protein NEGATIVE, Urine Glucose (UA) NEGATIVE, Urine Ketones NEGATIVE, Urine Nitrite NEGATIVE, Urine Bilirubin NEGATIVE, Urine Urobilinogen 1.0, Urine Leukocyte Esterase NEGATIVE, Urine RBC (Auto) NEGATIVE, Urine RBC 0- 2, Urine WBC NONE, Urine Squamous Epithelial Cells 0-2, Urine Crystals PRESENT, Urine Amorphous Sediment FEW GERMAN URATES, Urine Bacteria TRACE, Urine Casts P RESENT, Urine Hyaline Casts 2-5, Urine Mucus MODERATE, Urine Culture Indicated NO 03/15/23 20:05: Lab Scanned Report Referred Lab Report 03/16/23 05:14: Sodium Level 144, Potassium Level 3.7, Chloride Level 111, Carbon Dioxide Level 27, Anion Gap 6, Blood Urea Nitrogen 37, Creatinine 1.29, Estimat Glomerular Filtration Rate 40, BUN/Creatinine Ratio 29, Glucose Level 76, Calcium Level 7.8, Corrected Calcium 9.5, Total Bilirubin 0.7, Aspartate Amino Transf (AST/SGOT) 22, Alanine Aminotransferase (ALT/SGPT) 16, Alkaline Phosphatase 77, Total Protein 4.2, Albumin 1.9 03/16/23 05:50: White Blood Count 7.4, Red Blood Count 3.93, Hemoglobin 12.4, Hematocrit 41, Mean Corpuscular Volume 105, Mean Corpuscular Hemoglobin 32, Mean Corpuscular Hemoglobin Concent 30, Red Cell Distribution Width 14.3, Platelet Count 54, Mean Platelet Volume 13.3, Immature Granulocyte % (Auto) 0, Neutrophils (%) (Auto) 80, Lymphocytes (%) (Auto) 12, Monocytes (%) (Auto) 6, Eosinophils (%) (Auto) 2, Basophils (%) (Auto) 0, Neutrophils # (Auto) 5.9, Lymphocytes # (Auto) 0.9, Monocytes # (Auto) 0.4, Eosinophils # (Auto) 0.1, Basophils # (Auto) 0.0, Immature Granulocyte # (Auto) 0.0, Percent Immature Platelet Fraction 15.2, Smear Scan YES 03/16/23 21:15: Vancomycin Level Trough 13.1 03/17/23 05:22: White Blood Count 5.1, Red Blood Count 3.91, Hemoglobin 12.5, Hematocrit 41, Mean Corpuscular Volume 105, Mean Corpuscular Hemoglobin 32, Mean Corpuscular Hemoglobin Concent 30, Red Cell Distribution Width 14.5, Platelet Count 48, Mean Platelet Volume 13.4, Immature Granulocyte % (Auto) 0, Neutrophils (%) (Auto) 78, Lymphocytes (%) (Auto) 13, Monocytes (%) (Auto) 7, Eosinophils (%) (Auto) 2, Basophils (%) (Auto) 0, Neutrophils # (Auto) 4.0, Lymphocytes # (Auto) 0.7, Monocytes # (Auto) 0.3, Eosinophils # (Auto) 0.1, Basophils # (Auto) 0.0, Immature Granulocyte # (Auto) 0.0, Sodium Level 144, Potassium Level 3.7, Chloride Level 112, Carbon Dioxide Level 24, Anion Gap 8, Blood Urea Nitrogen 34, Creatinine 1.39, Estimat Glomerular Filtration Rate 37, BUN/Creatinine Ratio 24, Glucose Level 72, Calcium Level 7.6, Corrected Calcium 9.3, Total Bilirubin 0.6, Aspartate Amino Transf (AST/SGOT) 28, Alanine Aminotransferase (ALT/SGPT) 14, Alkaline Phosphatase 81, Total Protein 4.2, Albumin 1.9 03/18/23 13:42: White Blood Count 3.5, Red Blood Count 4.01, Hemoglobin 12.8, Hematocrit 42, Mean Corpuscular Volume 104, Mean Corpuscular Hemoglobin 32, Mean Corpuscular Hemoglobin Concent 31, Red Cell Distribution Width 14.3, Platelet Count 52, Mean Platelet Volume 13.7, Immature Granulocyte % (Auto) 0, Neutrophils (%) (Auto) 69, Lymphocytes (%) (Auto) 17, Monocytes (%) (Auto) 10, Eosinophils (%) (Auto) 3, Basophils (%) (Auto) 0, Neutrophils # (Auto) 2.4, Lymphocytes # (Auto) 0.6, Monocytes # (Auto) 0.3, Eosinophils # (Auto) 0.1, Basophils # (Auto) 0.0, Immature Granulocyte # (Auto) 0.0, Sodium Level 142, Potassium Level 3.5, Chloride Level 108, Carbon Dioxide Level 26, Anion Gap 8, Blood Urea Nitrogen 29, Creatinine 1.32, Estimat Glomerular Filtration Rate 39, BUN/Creatinine Ratio 22, Glucose Level 122, Calcium Level 7.5, Corrected Calcium 9.2, Total Bilirubin 0.5, Aspartate Amino Transf (AST/SGOT) 41, Alanine Aminotransferase (ALT/SGPT) 20, Alkaline Phosphatase 79, Total Protein 4.4, Albumin 1.9, Percent Immature Platelet Fraction 16.2, Prothrombin Time 28.9, INR Comment 2.8 03/18/23 20:21: Vancomycin Level Trough 21.8 03/19/23 05:57: White Blood Count 4.0, Red Blood Count 4.20, Hemoglobin 13.5, Hematocrit 44, Mean Corpuscular Volume 105, Mean Corpuscular Hemoglobin 32, Mean Corpuscular Hemoglobin Concent 31, Red Cell Distribution Width 14.4, Platelet Count 50, Mean Platelet Volume 13.2, Immature Granulocyte % (Auto) 0, Neutrophils (%) (Auto) 67, Lymphocytes (%) (Auto) 20, Monocytes (%) (Auto) 10, Eosinophils (%) (Auto) 3, Basophils (%) (Auto) 0, Neutrophils # (Auto) 2.7, Lymphocytes # (Auto) 0.8, Monocytes # (Auto) 0.4, Eosinophils # (Auto) 0.1, Basophils # (Auto) 0.0, Immature Granulocyte # (Auto) 0.0, Sodium Level 145, Potassium Level 4.0, Chloride Level 110, Carbon Dioxide Level 26, Anion Gap 9, Blood Urea Nitrogen 30, Creatinine 1.41, Estimat Glomerular Filtration Rate 36, BUN/Creatinine Ratio 21, Glucose Level 78, Calcium Level 7.9, Corrected Calcium 9.5, Total Bilirubin 0.5, Aspartate Amino Transf (AST/SGOT) 35, Alanine Aminotransferase (ALT/SGPT) 19, Alkaline Phosphatase 92, Total Protein 4.5, Albumin 2.0, Percent Immature Platelet Fraction 18.2, Prothrombin Time 43.6, INR Comment 4.7, Vancomycin Level Trough 21.5 03/20/23 08:05: White Blood Count 5.7, Red Blood Count 4.08, Hemoglobin 13.0, Hematocrit 42, Mean Corpuscular Volume 102, Mean Corpuscular Hemoglobin 32, Mean Corpuscular Hemoglobin Concent 31, Red Cell Distribution Width 14.5, Platelet Count 55, Mean Platelet Volume 13.8, Immature Granulocyte % (Auto) 0, Neutrophils (%) (Auto) 71, Lymphocytes (%) (Auto) 17, Monocytes (%) (Auto) 8, Eosinophils (%) (Auto) 2, Basophils (%) (Auto) 0, Neutrophils # (Auto) 4.1, Lymphocytes # (Auto) 1.0, Monocytes # (Auto) 0.5, Eosinophils # (Auto) 0.1, Basophils # (Auto) 0.0, Immature Granulocyte # (Auto) 0.0, Percent Immature Platelet Fraction 16.3, Prothrombin Time 53.6, INR Comment 6.2, Sodium Level 140, Potassium Level 3.4, Chloride Level 110, Carbon Dioxide Level 25, Anion Gap 5, Blood Urea Nitrogen 31, Creatinine 1.47, Estimat Glomerular Filtration Rate 34, BUN/Creatinine Ratio 21, Glucose Level 115, Calcium Level 7.7, Corrected Calcium 9.4, Total Bilirubin 0.5, Aspartate Amino Transf (AST/SGOT) 25, Alanine Aminotransferase (ALT/SGPT) 17, Alkaline Phosphatase 85, Total Protein 4.2, Albumin 1.9, Vancomycin Level Trough 17.7 03/21/23 05:17: White Blood Count 5.5, Red Blood Count 4.06, Hemoglobin 13.0, Hematocrit 42, Mean Corpuscular Volume 103, Mean Corpuscular Hemoglobin 32, Mean Corpuscular Hemoglobin Concent 31, Red Cell Distribution Width 14.2, Platelet Count 59, Mean Platelet Volume 13.4, Immature Granulocyte % (Auto) 0, Neutrophils (%) (Auto) 60, Lymphocytes (%) (Auto) 23, Monocytes (%) (Auto) 11, Eosinophils (%) (Auto) 5, Basophils (%) (Auto) 0, Neutrophils # (Auto) 3.3, Lymphocytes # (Auto) 1.3, Monocytes # (Auto) 0.6, Eosinophils # (Auto) 0.3, Basophils # (Auto) 0.0, Immature Granulocyte # (Auto) 0.0, Percent Immature Platelet Fraction 16.8, Prothrombin Time 35.2, INR Comment 3.6, Sodium Level 139, Potassium Level 3.9, Chloride Level 109, Carbon Dioxide Level 23, Anion Gap 7, Blood Urea Nitrogen 36, Creatinine 1.50, Estimat Glomerular Filtration Rate 34, BUN/Creatinine Ratio 24, Glucose Level 79, Calcium Level 7.8, Corrected Calcium 9.6, Total Bilirubin 0.5, Aspartate Amino Transf (AST/SGOT) 23, Alanine Aminotransferase (ALT/SGPT) 15, Alkaline Phosphatase 85, Total Protein 4.3, Albumin 1.8 Discharge Home Medications: Active Scripts Active Amox Tr-K Clv 875-125 mg Tab (Amoxicillin/Potassium Clav) 875 Mg-125 Mg Tablet 1 Each PO BID Warfarin Sodium 1 Mg Tablet 1 Mg PO DAILY Car Packet (Arginine/Glutamine/Calcium Hmb) 7 Gram-7 Gram-1.5 Gram Powd.pack 1 Each PO DAILY Loteprednol Etabonate 0.5 % Drops.gel 1 Drop OD DAILY Calcium 600 + Vit D 400 Tablet (Calcium Carbonate/Vitamin D3) 600 Mg Calcium-10 Mcg (400 Unit) Tablet 1 Each PO BID Ondansetron HCl 8 Mg Tablet 8 Mg PO Q8H PRN Lokelma (Sodium Zirconium Cyclosilicate) 5 Gram Powd.pack 5 Gm PO Q48H Tolterodine Tartrate ER (Tolterodine Tartrate) 2 Mg Cap.er.24h 2 Mg PO HS Tylenol Extra Strength (Acetaminophen) 500 Mg Tablet 500 Mg PO TID Oxycodone-Acetaminophen 10-325 (Oxycodone HCl/Acetaminophen) 10 Mg-325 Mg Tablet 1 Ea PO 1000,1800 Gabapentin 100 Mg Capsule 100 Mg PO DAILY Bisacodyl 5 Mg Tablet.dr 10 Mg PO DAILY PRN Famotidine 20 Mg Tablet 20 Mg PO BID Benadryl Allergy (Diphenhydramine HCl) 25 Mg Tablet 25 Mg PO BID PRN Vitamin C (Ascorbate Calcium) 500 Mg Tablet 500 Mg PO BID Vitamin D3 (Cholecalciferol (Vitamin D3)) 125 Mcg (5000 Unit) Tablet 125 Mcg PO DAILY Biotene Moisturizing Mouth (Saliva Stimulant Agents Comb.3) 1 Each [place] 1 [place] MM BID Colace (Docusate Sodium) 100 Mg Capsule 100 Mg PO BID Gabapentin 800 Mg Tablet 800 Mg PO TIDWM Morphine Sulfate ER (Morphine Sulfate) 30 Mg Tablet.er 30 Mg PO BID Movantik (Naloxegol Oxalate) 25 Mg Tablet 25 Mg PO DAILY Pantoprazole Sodium 40 Mg Tablet.dr 40 Mg PO BID Artificial Tears Drops (Polyvinyl Alcohol/Povidone) 0.5 %-0.6 % Drops 1 Drop OU Q4H PRN Instructions to patient/family Please see electronic discharge instructions given to patient. Clinical Quality Measures DVT/VTE Risk/Contraindication: Contraindications-Mechi: Other *list below* Other: leg dvt's SARAH CALLEJAS DO Mar 21, 2023 12:32
[2023-03-21] MEDS: MICONAZOLE 2% POWDER (DESENEX AF) 90 GM TOP SCH (13:13)
[2023-03-21] MEDS: SALIVA STIMULANT GEL 1.5 OZ (BIOTENE) TUBE MM SCH (13:13)
[2023-03-21] MEDS: CALCIUM CARB + VIT D 600 MG (CALCARB + D) TAB PO SCH (13:34)
[2023-03-21 16:21] VITALS: BP 89/59
== END 2023-03-21 15:00 | DRG 872 ==
LOC: EDUNIT# 17:36 → ER 17:37 → 4TH 20:05
PROVIDERS: ADMIT Internal Medicine; ATTEND Internal Medicine
DX: A41.9 Sepsis, unspecified organism (principal); N17.9 Acute kidney failure, unspecified; D68.32 Hemorrhagic disorder due to extrinsic circulating anticoagulants; E46 Unspecified protein-calorie malnutrition; I48.92 Unspecified atrial flutter; N61.0 Mastitis without abscess; J43.9 Emphysema, unspecified; T45.515A Adverse effect of anticoagulants, initial encounter; Z66 Do not resuscitate; Z20.822 Contact with and (suspected) exposure to COVID-19; Z68.34 Body mass index [BMI] 34.0-34.9, adult; D69.6 Thrombocytopenia, unspecified; L98.499 Non-pressure chronic ulcer of skin of other sites with unspecified severity; B37.2 Candidiasis of skin and nail; I87.8 Other specified disorders of veins; Z91.81 History of falling; I48.91 Unspecified atrial fibrillation; K59.00 Constipation, unspecified; I12.9 Hypertensive chronic kidney disease with stage 1 through stage 4 chronic kidney disease, or unspecified chronic kidney disease; N18.9 Chronic kidney disease, unspecified; K21.9 Gastro-esophageal reflux disease without esophagitis; M81.0 Age-related osteoporosis without current pathological fracture; M19.90 Unspecified osteoarthritis, unspecified site; H40.9 Unspecified glaucoma; H91.90 Unspecified hearing loss, unspecified ear; F41.9 Anxiety disorder, unspecified; F32.A Depression, unspecified; Z86.718 Personal history of other venous thrombosis and embolism; Z99.3 Dependence on wheelchair; Z99.81 Dependence on supplemental oxygen; Z79.899 Other long term (current) drug therapy; Z88.6 Allergy status to analgesic agent; Z91.09 Other allergy status, other than to drugs and biological substances; Z96.653 Presence of artificial knee joint, bilateral; Z96.641 Presence of right artificial hip joint
CPT/HCPCS: 36415; 51702; 71045; 80053; 80202; 81000; 83605; 83735; 84443; 85025; 85610; 85730; 87040; 87088; 87636; 93005; 93041; 94640; 94760

== ENCOUNTER 2023-04-16 16:17 | Inpatient (IN) | payer MEDICARE, OTHER, MEDICAID ==
[~2023-04-16] VITALS: Ht 152.4 cm; Wt 97.9 kg
[~2023-04-16 16:17] MED LIST changes: +ACET-2267 PO; +AMOX1TAB12 PO; +ARGI1POW4 PO; +ASCO-262 PO; +BISA5TAB20 PO; +DIPH25TA65 PO; +LOTE5DRO OD; +SODI5POW2 PO; +TOLT2CAP21 PO; +WRF1T PO
--- NOTE | 2023-04-16 16:24 | ED General ---
General Chief Complaint: Dizziness/Syncope Stated Complaint: SYNCOPE Source of Information: Patient, EMS Exam Limitations: No Limitations History of Present Illness Date Seen by Provider: Apr 16, 2023 Time Seen by Provider: 16:13 Initial Comments 87-year-old female presents from local nursing facility for apparent near syncopal episodes. EMS states that staff told them that she was nodding off for several seconds while having a conversation with staff. On arrival patient has no specific complaints. She states she does not remember nodding off. Her only concern is a sore that she has had on her bottom for quite some time that is hurting her. She does endorse she has had a decreased appetite lately but has no other specific concerns. No chest pain, abdominal pain, changes in bowel or bladder habits. No fevers chills or cough. All other systems reviewed and negative except documented per HPI. Voice recognition software was used to help create this chart Allergies and Home Medications Allergies Coded Allergies: adhesive tape (Verified Allergy, Mild, RASH, 08/29/20) aspirin (Verified Allergy, Unknown, 08/29/20) meperidine (Verified Allergy, Unknown, 08/29/20) nitrofurantoin (Verified Allergy, Unknown, 08/29/20) Uncoded Allergies: SURGICAL TAPE (Allergy, Unknown, 05/14/07) Patient Home Medication List Home Medication List Reviewed: Yes Acetaminophen (Tylenol Extra Strength) 500 Mg Tablet, 500 MG PO TID Prescribed by: SARAH CALLEJAS on 03/21/231226 Last Action: Held Bisacodyl (Bisacodyl) 5 Mg Tablet.dr, 10 MG PO DAILY PRN for CONSTIPATION-4TH LINE Prescribed by: SARAH CALLEJAS on 03/21/231226 Last Action: Held Calcium Carbonate/Vitamin D3 (Calcium 600 + Vit D 400 Tablet) 600 Mg Calcium-10 Mcg (400 Unit) Tablet, 1 EACH PO BID Prescribed by: SARAH CALLEJAS on 03/21/231226 Last Action: Held Cholecalciferol (Vitamin D3) (Vitamin D3) 125 Mcg (5000 Unit) Tablet, 125 MCG PO DAILY Prescribed by: SARAH CALLEJAS on 03/21/231226 Last Action: Held Diphenhydramine HCl (Benadryl Allergy) 25 Mg Tablet, 25 MG PO BID PRN for ITCHING, (Reported) Entered as Reported by: BECKY BISWAS on 04/17/23 1340 Last Action: Held Docusate Sodium (Colace) 100 Mg Capsule, 100 MG PO BID Prescribed by: SARAH CALLEJAS on 03/21/231226 Last Action: Held Famotidine (Famotidine) 20 Mg Tablet, 20 MG PO BID Prescribed by: SARAH CALLEJAS on 03/21/231226 Last Action: Continued Gabapentin (Gabapentin) 800 Mg Tablet, 800 MG PO TIDWM Prescribed by: SARAH CALLEJAS on 03/21/231226 Last Action: Held Gabapentin (Gabapentin) 100 Mg Capsule, 100 MG PO DAILY Prescribed by: SARAH CALLEJAS on 03/21/231226 Last Action: Reviewed Loteprednol Etabonate (Loteprednol Etabonate) 0.5 % Drops.gel, 1 DROP OD DAILY Prescribed by: SARAH CALLEJAS on 03/21/231226 Last Action: Held Morphine Sulfate (Morphine Sulfate ER) 30 Mg Tablet.er, 30 MG PO BID Prescribed by: SARAH CALLEJAS on 03/21/231227 Last Action: Continued Naloxegol Oxalate (Movantik) 25 Mg Tablet, 25 MG PO DAILY Prescribed by: SARAH CALLEJAS on 03/21/231226 Last Action: Converted Ondansetron HCl (Ondansetron HCl) 8 Mg Tablet, 8 MG PO Q8H PRN for NAUSEA/VOMITING-1ST LINE Prescribed by: SARAH CALLEJAS on 03/21/231226 Last Action: Held Oxycodone HCl/Acetaminophen (Oxycodone-Acetaminophen 10-325) 10 Mg-325 Mg Tablet, 1 EA PO 1000,1800 Prescribed by: SARAH CALLEJAS on 03/21/231227 Last Action: Continued Pantoprazole Sodium (Pantoprazole Sodium) 40 Mg Tablet.dr, 40 MG PO BID Prescribed by: SARAH CALLEJAS on 03/21/231226 Last Action: Continued Polyvinyl Alcohol (Polyvinyl Alcohol) 1.4 % Drops, 1 DROP OU BID, (Reported) Entered as Reported by: BEKCY BISWAS on 04/17/231345 Last Action: Held Polyvinyl Alcohol/Povidone (Artificial Tears Drops) 0.5 %-0.6 % Drops, 1 DROP OU Q4H PRN for DRY EYES Prescribed by: SARAH CALLEJAS on 03/21/231226 Last Action: Converted Saliva Stimulant Agents Comb.3 (Biotene Moisturizing Mouth) 1 Each [place], 1 S PRAY MM BID Prescribed by: SARAH CALLEJAS on 03/21/231226 Last Action: Converted Sodium Zirconium Cyclosilicate (Lokelma) 5 Gram Powd.pack, 5 GM PO Q48H Prescribed by: SARAH CALLEJAS on 03/21/231226 Last Action: Held Tolterodine Tartrate (Tolterodine Tartrate ER) 2 Mg Cap.er.24h, 2 MG PO HS Prescribed by: SARAH CALLEJAS on 03/21/231226 Last Action: Continued Warfarin Sodium (Warfarin Sodium) 1 Mg Tablet, 1 MG PO PAN,MO,TU,WE,TH,SA, (Reported) Entered as Reported by: BECKY BISWAS on 04/17/231339 Last Action: Held Warfarin Sodium (Warfarin Sodium) 2 Mg Tablet, 2 MG PO MON, (Reported) Entered as Reported by: BECKY BISWAS on 04/17/231339 Last Action: Held Discontinued Medications Amoxicillin/Potassium Clav (Amox Tr-K Clv 875-125 mg Tab) 875 Mg-125 Mg Tablet, 1 EACH PO BID Discontinued Reason: No Longer Taking Prescribed by: SARAH CALLEJAS on 03/21/231228 Last Action: Discontinued Arginine/Glutamine/Calcium Hmb (Car Packet) 7 Gram-7 Gram-1.5 Gram Powd.pack, 1 EACH PO DAILY Discontinued Reason: No Longer Taking Prescribed by: SARAH CALLEJAS on 03/21/231226 Last Action: Discontinued Ascorbate Calcium (Vitamin C) 500 Mg Tablet, 500 MG PO BID Discontinued Reason: No Longer Taking Prescribed by: SARAH CALLEJAS on 03/21/231226 Last Action: Discontinued Dextran 70/Hypromellose (Artificials Tears Drops) 30 Ml Drops, 1 DROP OU BID, (Reported) Discontinued Reason: Prescription changed Entered as Reported by: BECKY BISWAS on 04/17/231339 Last Action: New Order Diphenhydramine HCl (Benadryl Allergy) 25 Mg Tablet, 25 MG PO BID PRN for ITCHING Discontinued Reason: Duplicate Order Prescribed by: SARAH CALLEJAS on 03/21/231226 Last Action: Discontinued Warfarin Sodium (Warfarin Sodium) 1 Mg Tablet, 1 MG PO DAILY Discontinued Reason: Duplicate Order Prescribed by: SARAH CALLEJAS on 03/21/23 1227 Last Action: Discontinued Review of Systems Review of Systems Constitutional: see HPI Past Crfegvv-Btkhmg-Sypvjo Hx Patient Social History Tobacco Use?: No Use of E-Cig and/or Vaping dev: No Substance use?: No Alcohol Use?: No Immunizations Up To Date Tetanus Booster (TDap): Less than 5yrs PED Vaccines UTD: No Seasonal Allergies Seasonal Allergies: No Past Medical History Surgeries: Yes (hiatal hernia, bilat hip sx, L TKR, L femur fx) Abdominal, Bowel Surgery, Gallbladder, Hysterectomy, Joint Replacement, Orthopedic, Vascular Surgery Respiratory: Yes (OXYGEN AT HS) COPD, Emphysema Cardiac: Yes (BILAT DVT'S 02/15/23) Atrial Fibrillation, Deep Vein Thrombosis, Hypertension, Irregular Heartbeat Neurological: Yes Dementia 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 Genitourinary: Yes (NO DIALYSIS) Renal Failure, UTI-Chronic Gastrointestinal: Yes (COLON RESECTION) Gastroesophageal Reflux, Hiatal Hernia, Ulcer Musculoskeletal: Yes (BILATERAL KNEES & R HIP REPLACED & BILATERAL FEMUR FX/ORIF'S;FREQ FALLS;WC ) Osteoporosis, Arthritis, Fractures Endocrine: No HEENT: Yes Glaucoma Hearing Impairment: Hard of Hearing Cancer: No Psychosocial: Yes Sleep Difficulties, Anxiety, Depression Integumentary: No Blood Disorders: Yes Adverse Reaction/Blood Tranf: Yes (Transfusion reaction with platelets 05/2019) Family Medical History Alcoholism 19 FATHER Cardiovascular disease 19 MOTHER Colon cancer 19 MOTHER Diabetes mellitus 19 MOTHER Neoplasm 19 MOTHER (colon ca w/ mets to liver ) Respiratory disorder 19 FATHER No Family History of: AIDS Abdominal aortic aneurysm Arthritis Asthma Dementia Drug abuse Hypertension Kidney disease Myocardial infarction Psychosocial problem Seizure disorder Severe allergy Thyroid disease Tuberculosis Cancer, Diabetes Physical Exam Vital Signs Vital Signs - First Documented 04/16/23 16:19 Temp 37.2 Pulse 80 Resp 16 B/P (MAP) 83/70 (74) O2 Delivery Room Air Capillary Refill : Height, Weight, BMI Height: 5'0.00" Weight: 123lbs. 0.0oz. 55.493850ng; 34.87 BMI Method:Stated General Appearance: No Apparent Distress, WD/WN HEENT: PERRL/EOMI, Normal ENT Inspection, Pharynx Normal Neck: Full Range of Motion, Supple Respiratory: Chest Non Tender, Lungs Clear, Normal Breath Sounds, No Accessory Muscle Use, No Respiratory Distress Cardiovascular: Regular Rate, Rhythm, No Murmur, Normal Peripheral Pulses Gastrointestinal: Normal Bowel Sounds, No Organomegaly, Non Tender, Soft Extremity: Normal Capillary Refill, Normal Inspection, Non Tender, No Calf Tenderness Neurologic/Psychiatric: Alert, Oriented x3, No Motor/Sensory Deficits, Normal 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 This is mostly hyperemia with some mild skin breakdown however there is an open area about 2 cm in diameter. This does not appear infected at this time.) Focused Exam Lactate Level 04/16/23 17:43: Lactic Acid Level 2.07*H Lactic Acid Level Laboratory Tests Test 04/16/23 17:43 Lactic Acid Level 2.07 MMOL/L (0.50-2.00) *H Procedures/Interventions Lumen: triple Central Line Procedure: betadine prep Position: femoral (R) Anesthesia: Lidocaine Volume Anesthetic (ccs): 10 Complications: none Post Position: sutured Suture Size: 4-0 Progress/Results/Core Measures Suspected Sepsis SIRS Temperature: Pulse: Respiratory Rate: Blood Pressure / Mean: 04/16/23 17:43: Lactic Acid Level 2.07*H Results/Orders Lab Results Laboratory Tests Test 04/16/23 16:33 04/16/23 17:03 04/16/23 17:43 Range/Units White Blood Count 13.7 H 4.3-11.0 10^3/uL Red Blood Count 3.86 3.80-5.11 10^6/uL Hemoglobin 12.9 11.5-16.0 g/dL Hematocrit 42 35-52 % Mean Corpuscular Volume 110 H 80-99 fL Mean Corpuscular Hemoglobin 33 25-34 pg Mean Corpuscular Hemoglobin Concent 30 L 32-36 g/dL Red Cell Distribution Width 17.7 H 10.0-14.5 % Platelet Count 134 130-400 10^3/uL Mean Platelet Volume 12.2 9.0-12.2 fL Immature Granulocyte % (Auto) 1 % Neutrophils (%) (Auto) 88 H 42-75 % Lymphocytes (%) (Auto) 6 L 12-44 % Monocytes (%) (Auto) 3 0-12 % Eosinophils (%) (Auto) 2 0-10 % Basophils (%) (Auto) 0 0-10 % Neutrophils # (Auto) 12.1 H 1.8-7.8 10^3/uL Lymphocytes # (Auto) 0.8 L 1.0-4.0 10^3/uL Monocytes # (Auto) 0.4 0.0-1.0 10^3/uL Eosinophils # (Auto) 0.2 0.0-0.3 10^3/uL Basophils # (Auto) 0.1 0.0-0.1 10^3/uL Immature Granulocyte # (Auto) 0.2 H 0.0-0.1 10^3/uL Neutrophils % (Manual) 85 % Lymphocytes % (Manual) 3 % Monocytes % (Manual) 0 % Eosinophils % (Manual) 0 % Basophils % (Manual) 0 % Band Neutrophils 12 % Percent Immature Platelet Fraction 10.7 H 0.0-7.6 % Anisocytosis SLIGHT Macrocytosis SLIGHT Sodium Level 141 135-145 MMOL/L Potassium Level 3.9 3.6-5.0 MMOL/L Chloride Level 106 98-107 MMOL/L Carbon Dioxide Level 26 21-32 MMOL/L Anion Gap 9 5-14 MMOL/L Blood Urea Nitrogen 25 H 7-18 MG/DL Creatinine 1.21 0.60-1.30 MG/DL Estimat Glomerular Filtration Rate 43 BUN/Creatinine Ratio 21 Glucose Level 86 70-105 MG/DL Calcium Level 8.8 8.5-10.1 MG/DL Corrected Calcium 10.4 H 8.5-10.1 MG/DL Total Bilirubin 0.8 0.1-1.0 MG/DL Aspartate Amino Transf (AST/SGOT) 25 5-34 U/L Alanine Aminotransferase (ALT/SGPT) 15 0-55 U/L Alkaline Phosphatase 113 40-136 U/L Total Protein 5.2 L 6.4-8.2 GM/DL Albumin 2.0 L 3.2-4.5 GM/DL Urine Color ORANGE Urine Clarity CLEAR Urine pH 5.5 5-9 Urine Specific [place] 1.025 H 1.016-1.022 Urine Protein NEGATIVE NEGATIVE Urine Glucose (UA) NEGATIVE NEGATIVE Urine Ketones NEGATIVE NEGATIVE Urine Nitrite NEGATIVE NEGATIVE Urine Bilirubin NEGATIVE NEGATIVE Urine Urobilinogen 0.2 < = 1.0 MG/DL Urine Leukocyte Esterase NEGATIVE NEGATIVE Urine RBC (Auto) 3+ H NEGATIVE Urine RBC 25-50 H /HPF Urine WBC RARE /HPF Urine Squamous Epithelial Cells RARE /HPF Urine Crystals NONE /LPF Urine Bacteria TRACE /HPF Urine Casts NONE /LPF Urine Mucus NEGATIVE /LPF Urine Culture Indicated NO Lactic Acid Level 2.07 *H 0.50-2.00 MMOL/L Micro Results Microbiology 04/16/23 Blood Culture - Preliminary, Resulted No growth My Orders Orders - BRUCE PARSONS DO Comprehensive Metabolic Panel (04/16/23 16:21) Ekg Tracing (04/16/23 16:21) Cbc With Automated Diff (04/16/23 16:21) Ua Culture If Indicated (04/16/23 16:21) Manual Differential (04/16/23 16:33) Ns Iv 1000 Ml (Sodium Chloride 0.9%) (04/16/23 17:22) Blood Culture (04/16/23 17:22) Lactic Acid Analyzer (04/16/23 17:22) Chest 1 View, Ap/Pa Only (04/16/23 17:23) Piperacillin Sodium/Tazobactam (Zosyn Vi (04/16/23 17:30) Ed Admission (Communication) (04/16/23 17:44) Vital Signs/I&O 04/16/23 16:19 Temp 37.2 Pulse 80 Resp 16 B/P (MAP) 83/70 (74) O2 Delivery Room Air Capillary Refill : ECG Comment Atrial fibrillation with a rate of 96 bpm. Normal intervals outside of [place] interval. Slight left axis deviation. No ST or T wave abnormalities. No ectopy. No STEMI Critical Care Note Critical Care Total Time (minutes) 60 Departure Communication (Admissions) Patient's initial blood pressures were normal however she trended down during her emergency department stay. She became quite hypotensive so I ordered some IV fluids. I then added a lactate and blood cultures on to her initial assessment. She does have a leukocytosis with a left shift. We will go ahead and give her broad-spectrum antibiotics. There is no obvious source of i nfection at this time. Chest x-ray is clear, I have independently reviewed the images. Lactic acid is 2.07. She has a leukocytosis but the remainder of her labs relatively unremarkable. She has normal kidney function, normal electrolytes. She is not significantly anemic. I spoke with the hospitalist who accepts the patient in admission to the ICU. Impression Primary Impression: Hypotension Qualified Codes: I95.9 - Hypotension, unspecified Disposition: ADMITTED INPATIENT Condition: Critical Admissions Decision to Admit Reason: Admit from ER (General) Departure-Patient Inst. Referrals: NO,LOCAL PHYSICIAN (PCP/Family) Primary Care Physician BRUCE PARSONS DO Apr 16, 2023 16:24
[2023-04-16 16:42] LABS: MEAN CORPUSCULAR VOLUME 110 fL (80-99); MONOCYTES # (AUTO) 0.4 10^3/uL (0.0-1.0); MONOCYTES % (AUTO) 3 % (0-12)
[2023-04-16 16:44] LABS: BASOPHILS # (AUTO) 0.1 10^3/uL (0.0-0.1); BASOPHILS % (AUTO) 0 % (0-10); EOSINOPHILS # (AUTO) 0.2 10^3/uL (0.0-0.3); EOSINOPHILS % (AUTO) 2 % (0-10); HEMATOCRIT 42 % (35-52); HEMOGLOBIN 12.9 g/dL (11.5-16.0); LYMPHOCYTES # (AUTO) 0.8 10^3/uL (1.0-4.0); LYMPHOCYTES % (AUTO) 6 % (12-44); MEAN CORPUSCULAR HEMOGLOBIN 33 pg (25-34); MEAN CORPUSCULAR HGB CONC 30 g/dL (32-36); MEAN PLATELET VOLUME 12.2 fL (9.0-12.2); NEUTROPHILS # (AUTO) 12.1 10^3/uL (1.8-7.8); NEUTROPHILS % (AUTO) 88 % (42-75); PLATELET COUNT 134 10^3/uL (130-400); WHITE BLOOD COUNT 13.7 10^3/uL (4.3-11.0)
[2023-04-16 16:53] LABS: POTASSIUM 3.9 MMOL/L (3.6-5.0)
[2023-04-16 16:54] LABS: CALCIUM 8.8 MG/DL (8.5-10.1)
[2023-04-16 16:55] LABS: TOTAL PROTEIN 5.2 GM/DL (6.4-8.2)
[2023-04-16 16:57] LABS: BILIRUBIN,TOTAL 0.8 MG/DL (0.1-1.0)
[2023-04-16 16:59] LABS: CREATININE SERUM 1.21 MG/DL (0.60-1.30)
[2023-04-16] MEDS ORDERED: NS IV 1000 ML 1,000 ML IV STA (17:22)
[2023-04-16 17:25] LABS: BILIRUBIN,URINE NEGATIVE (NEGATIVE); CLARITY,URINE CLEAR; COLOR,URINE ORANGE; GLUCOSE, URINE (UA) NEGATIVE (NEGATIVE); KETONES,URINE NEGATIVE (NEGATIVE); LEUKOCYTE ESTERASE ,URINE NEGATIVE (NEGATIVE); NITRITE,URINE NEGATIVE (NEGATIVE); PH,URINE 5.5 (5-9); PROTEIN,URINE NEGATIVE (NEGATIVE)
[2023-04-16 17:25] LABS: BAND NEUTROPHILS 12 %; EOSINOPHILS % (MANUAL) 0 %; LYMPHOCYTES % (MANUAL) 3 %; MONOCYTES % (MANUAL) 0 %; NEUTROPHILS % (MANUAL) 85 %
[2023-04-16 17:26] LABS: ANISOCYTOSIS SLIGHT; BASOPHILS % (MANUAL) 0 %
[2023-04-16] MEDS ORDERED: PIPERACILLIN SODIUM/TAZOBACTAM 4.5 GM in NS (IVPB) 100 ML IV ONE (17:30)
[2023-04-16 17:35] LABS: BACTERIA,URINE TRACE /HPF; RBC,URINE 25-50 /HPF; SQUAMOUS EPITHELIAL CELL,UR RARE /HPF; WBC,URINE RARE /HPF
--- NOTE | 2023-04-16 17:54 | Diagnostic Imaging Report ---
Indication: Hypotension and syncope. Frontal chest obtained at 5:32 p.m. and compared to 03/15/2023. The heart is normal in size. There is some mild right basilar atelectasis and minimal left basilar infiltrate versus atelectasis. There is no pneumothorax or pleural fluid. Impression: Poor inspiration. Mild right basilar atelectasis and mild left basilar infiltrate versus atelectasis. Dictated by: Dictated on workstation # [id number]
[2023-04-16] MEDS ORDERED: NS 100 ML (IVPB) BAG IV ONE (20:15)
[2023-04-16] MEDS ORDERED: NS IV 500 ML 500 ML ONE (20:18)
[2023-04-16] MEDS ORDERED: MELATONIN 3 MG TABLET PO PRN (20:30)
[2023-04-16] MEDS ORDERED: ONDANSETRON 4 MG/2 ML (SDV) Z0FRAN IV PRN (20:30)
[2023-04-16] MEDS ORDERED: CALCIUM CARBONATE 500 MG (TUMS) TAB.CHEW PO PRN (20:30)
[2023-04-16] MEDS ORDERED: MILK OF MAGNESIA 400 MG/5 ML 30 ML UDC PO PRN (20:30)
[2023-04-16] MEDS ORDERED: NS IV 500 ML 500 ML IV PRN (20:30)
[2023-04-16] MEDS ORDERED: LACTULOSE SYRUP 10GM/15ML (ENULOSE) 30ML UDC PO PRN (20:30)
[2023-04-16] MEDS ORDERED: ONDANSETRON 4 MG (ZOFRAN) ORAL DISSOLVE TAB PO PRN (20:30)
[2023-04-16] MEDS ORDERED: ACETAMINOPHEN 325 MG TABLET PO PRN (20:30)
[2023-04-16] MEDS ORDERED: BISACODYL 10 MG SUPP (DULCOLAX) PR PRN (20:30)
[2023-04-16] MEDS ORDERED: polyethylene glycoL POWDER 17 GM (MIRALAX) PACK PO PRN (20:30)
[2023-04-16] MEDS ORDERED: ANTACID SUSP 30 ML UDC (MYLANTA) PO PRN (20:30)
[2023-04-16] MEDS: PHENYLEPHRINE DRIP 250 ML IV SCH (20:36)
[2023-04-16] MEDS: LACTATED RINGERS 1,000 ML IV SCH (21:27)
[2023-04-16] MEDS: SENNOSIDES 8.6 MG (SENOKOT) TAB PO SCH (21:35)
[2023-04-16] MEDS: DOCUSATE SODIUM 100 MG (COLACE) CAP PO SCH (21:35)
[2023-04-16] MEDS ORDERED: PIPERACILLIN/TAZO 4.5 GM VIAL (ZOSYN) IV ONE (23:29)
[2023-04-16] MEDS: PIPERACILLIN SODIUM/TAZOBACTAM 4.5 GM in NS (IVPB) 100 ML IV SCH (23:43)
[2023-04-17] MEDS: PHENYLEPHRINE DRIP 250 ML IV SCH ×4 (00:47→08:30)
[2023-04-17 04:43] LABS: BASOPHILS # (AUTO) 0.1 10^3/uL (0.0-0.1); BASOPHILS % (AUTO) 1 % (0-10); EOSINOPHILS # (AUTO) 0.5 10^3/uL (0.0-0.3); EOSINOPHILS % (AUTO) 2 % (0-10); HEMATOCRIT 41 % (35-52); HEMOGLOBIN 12.3 g/dL (11.5-16.0); LYMPHOCYTES # (AUTO) 0.6 10^3/uL (1.0-4.0); LYMPHOCYTES % (AUTO) 3 % (12-44); MEAN CORPUSCULAR HEMOGLOBIN 32 pg (25-34); MEAN CORPUSCULAR HGB CONC 30 g/dL (32-36); MEAN CORPUSCULAR VOLUME 106 fL (80-99); MEAN PLATELET VOLUME 12.1 fL (9.0-12.2); MONOCYTES # (AUTO) 0.4 10^3/uL (0.0-1.0); MONOCYTES % (AUTO) 2 % (0-12); NEUTROPHILS # (AUTO) 18.9 10^3/uL (1.8-7.8); NEUTROPHILS % (AUTO) 92 % (42-75); PLATELET COUNT 202 10^3/uL (130-400); WHITE BLOOD COUNT 20.5 10^3/uL (4.3-11.0)
[2023-04-17 05:17] LABS: ALBUMIN 1.8 GM/DL (3.2-4.5); BILIRUBIN,TOTAL 0.8 MG/DL (0.1-1.0); CREATININE SERUM 1.14 MG/DL (0.60-1.30); MAGNESIUM 1.4 MG/DL (1.6-2.4); PHOSPHORUS 2.8 MG/DL (2.3-4.7); POTASSIUM 3.6 MMOL/L (3.6-5.0); TOTAL PROTEIN 4.5 GM/DL (6.4-8.2)
[2023-04-17] MEDS ORDERED: DEXTROSE 50% 50 ML (IMS) SYR ONE (05:38)
[2023-04-17] MEDS: POTASSIUM CL 10MEQ/50ML IVPB 50 ML IV SCH ×4 (06:37→08:53)
[2023-04-17] MEDS: KCL 20 MEQ TAB (K-DUR) PO SCH (06:38)
[2023-04-17] MEDS: MAGNESIUM 1 GM/100 ML IVPB 100 ML IV SCH ×6 (06:38→10:30)
[2023-04-17] MEDS ORDERED: FUROSEMIDE 40 MG/4 ML INJ (LASIX) IVP NR (07:00)
[2023-04-17] MEDS: LACTATED RINGERS 1,000 ML IV SCH (07:37)
--- NOTE | 2023-04-17 08:04 | Diagnostic Imaging Report ---
Indication: Sepsis AP portable view of chest is obtained with comparison made study of 04/16/2023. There is suboptimal inspiration. Overall heart size and pulmonary vascularity are within normal limits. There is no evidence of pneumothorax. There is basilar atelectasis bilaterally with blunting of both costophrenic sulci. IMPRESSION: Basilar atelectasis and mild pleural fluid or thickening which may in part be related to suboptimal inspiration. No significant new abnormality is detected. Dictated by: Dictated on workstation # [id number]
[2023-04-17] MEDS: PIPERACILLIN SODIUM/TAZOBACTAM 4.5 GM in NS (IVPB) 100 ML IV SCH ×2 (08:30→16:50)
[2023-04-17] MEDS: DOCUSATE SODIUM 100 MG (COLACE) CAP PO SCH ×2 (08:31→21:23)
[2023-04-17] MEDS: SENNOSIDES 8.6 MG (SENOKOT) TAB PO SCH ×2 (08:31→21:23)
--- NOTE | 2023-04-17 10:28 | Tele-ICU Consult ---
History of Present Illness History of Present Illness Date Seen by Provider: Apr 17, 2023 Time Seen by Provider: 10:27 Date of Admission (Tele-ICU Physician , consultation as per request of PCP Service provided via interactive audio and video telecommunications E-CARE system to a patient admitted to ICU bed in [facility]. Available chart/ vitals / labs / Images reviewed H&P is from ER notes Patient's information available about PMH, Shx, Fhx allergy reviewed inEMR. ROS as per chart and RN report Video assessment done using teleICU camera, rest of exam as per RN Discussed with RN. Hospital course: (7.9) Admitted a 87y/o with septic shock UTI from [place], R fem line 04/17- on magdy 250 , 3L nc A/P Shock ( sourse - ? PNA , wound) - on magdy gtt 250 ( receved 2.3L bolus , also received lasix with low UO and severe edema ) (severe hypoalbuminemia) - will change to levo , might need vase/albumin - follow - cont empiric abx ( zosyn 04/16 h/o DVT , IVC filter in place -Coagulopathy suspected ( on coumadine - INR pending Hypoxia - 3 l , cxr with atelectasis Hypoglycemia - to follow Lines : R femoral 04/16 , (Central Line Necessity Reviewed) [place]: + OG: Nutrition: po Analgesia: Anxiety/ delirium VTE Prophylaxis: inr pending Stress Ulcer Prophylaxis: na Plans in collaboration with bedside consultants and IM MDs. Discussed with RN to reach out if any questions or concerns A total of 31 minutes of critical care time was devoted to this patient today, required to treat and/or prevent further deterioration of critical care condition ( as above ) . I am remotely monitoring this patient from another state. I am unable to do the bedside exam, and history/physical and pertinent information is taken from other notes in the computer and bedside staff. . Allergies and Home Medications Allergies Coded Allergies: adhesive tape (Verified Allergy, Mild, RASH, 08/29/20) aspirin (Verified Allergy, Unknown, 08/29/20) meperidine (Verified Allergy, Unknown, 08/29/20) nitrofurantoin (Verified Allergy, Unknown, 08/29/20) Uncoded Allergies: SURGICAL TAPE (Allergy, Unknown, 05/14/07) Home Medications Acetaminophen 500 Mg Tablet, 500 MG PO TID Prescribed by: SARAH CALLEJAS on 03/21/23 122 Amoxicillin/Potassium Clav 875 Mg-125 Mg Tablet, 1 EACH PO BID Prescribed by: SARAH CALLEJAS on 03/21/23 122 Arginine/Glutamine/Calcium Hmb 7 Gram-7 Gram-1.5 Gram Powd.pack, 1 EACH PO DAILY Prescribed by: SARAH CALLEJAS on 03/21/23 122 Ascorbate Calcium 500 Mg Tablet, 500 MG PO BID Prescribed by: SARAH CALLEJAS on 03/21/23 122 Bisacodyl 5 Mg Tablet.dr, 10 MG PO DAILY PRN for CONSTIPATION-4TH LINE Prescribed by: SARAH CALLEJAS on 03/21/23 122 Calcium Carbonate/Vitamin D3 600 Mg Calcium-10 Mcg (400 Unit) Tablet, 1 EACH PO BID Prescribed by: SARAH CALLEJAS on 03/21/231226 Cholecalciferol (Vitamin D3) 125 Mcg (5000 Unit) Tablet, 125 MCG PO DAILY Prescribed by: SARAH CALLEJAS on 03/21/23 122 Diphenhydramine HCl 25 Mg Tablet, 25 MG PO BID PRN for ITCHING Prescribed by: SARAH CALLEJAS on 03/21/23 122 Docusate Sodium 100 Mg Capsule, 100 MG PO BID Prescribed by: SARAH CALLEJAS on 03/21/23 122 Famotidine 20 Mg Tablet, 20 MG PO BID Prescribed by: SARAH CALLEJAS on 03/21/23 122 Gabapentin 800 Mg Tablet, 800 MG PO TIDWM Prescribed by: SARAH CALLEJAS on 03/21/23 122 Gabapentin 100 Mg Capsule, 100 MG PO DAILY Prescribed by: SARAH CALLEJAS on 03/21/23 122 Loteprednol Etabonate 0.5 % Drops.gel, 1 DROP OD DAILY Prescribed by: SARAH CALLEJAS on 03/21/23 122 Morphine Sulfate 30 Mg Tablet.er, 30 MG PO BID Prescribed by: SARAH CALLEJAS on 03/21/23 122 Naloxegol Oxalate 25 Mg Tablet, 25 MG PO DAILY Prescribed by: SARAH CALLEJAS on 03/21/23 122 Ondansetron HCl 8 Mg Tablet, 8 MG PO Q8H PRN for NAUSEA/VOMITING-1ST LINE Prescribed by: SARAH CALLEJAS on 03/21/23 122 Oxycodone HCl/Acetaminophen 10 Mg-325 Mg Tablet, 1 EA PO 1000,1800 Prescribed by: SARAH CALLEJAS on 03/21/23 122 Pantoprazole Sodium 40 Mg Tablet.dr, 40 MG PO BID Prescribed by: SARAH CALLEJAS on 03/21/231226 Polyvinyl Alcohol/Povidone 0.5 %-0.6 % Drops, 1 DROP OU Q4H PRN for DRY EYES Prescribed by: SARAH CALLEJAS on 03/21/23 122 Saliva Stimulant Agents Comb.3 1 Each [place], 1 SPRAY MM BID Prescribed by: SARAH CALLEJAS on 03/21/231226 Sodium Zirconium Cyclosilicate 5 Gram Powd.pack, 5 GM PO Q48H Prescribed by: SARAH CALLEJAS on 03/21/231226 Tolterodine Tartrate 2 Mg Cap.er.24h, 2 MG PO HS Prescribed by: SARAH CALLEJAS on 03/21/231226 Warfarin Sodium 1 Mg Tablet, 1 MG PO DAILY Prescribed by: SARAH CALLEJAS on 03/21/231226 Past Medical/Social/Family Hx Patient Social History Tobacco Use?: No Smoking Status: Never a Smoker Smokeless Tobacco Frequency: Never a User Use of E-Cig and/or Vaping dev: No E-Cig and/or Vaping Freq: Never a User Substance use?: No Alcohol Use?: No Pt stated abuse/neglect: No Immunizations Up To Date Influenza Vaccine Up-to-Date: Yes; Up-to-Date Tetanus Booster (TDap): Unknown Date of Pneumonia Vaccine: Aug 31, 2017 Current Status status: No status: No Advance Directives: No Advance Directive Location: Unable to obtain copy Communicates: Verbally Primary Language: Liberian Preferred Spoken Language: Liberian Is interpretation needed?: No Sensory deficits: Vision impairment Implanted or Applied Medical D: None Review of Systems Constitutional: see HPI Focused Exam Lactate Level 04/16/23 17:43: Lactic Acid Level 2.07*H 04/16/23 18:50: Lactic Acid Level 1.70 Height, Weight, BMI Height: 5'0.00" Weight: 123lbs. 0.0oz. 55.378968nu; 37.24 BMI Method:Stated Exam Exam Patient acknowledged, consented, and participated in this virtual visit which was conducted using real time audio/video Vital Signs Date Time Temp Pulse Resp B/P (MAP) Pulse Ox O2 Delivery O2 Flow Rate FiO2 04/17/23 09:00 91 22 85/50 (62) 100 Nasal Cannula 3.00 04/17/23 08:30 102/58 04/17/23 08:00 98 Nasal Cannula 3.00 04/17/23 08:00 99 22 91/50 (64) 96 Nasal Cannula 3.00 04/17/23 07:40 36.0 Nasal Cannula 3.00 04/17/23 07:00 92 13 89/68 (75) 90 Nasal Cannula 3.00 04/17/23 07:00 88 04/17/23 06:01 93 108/68 04/17/23 06:00 91 12 108/68 (81) 91 Nasal Cannula 3.00 04/17/23 05:00 95 16 97/69 (78) 92 Nasal Cannula 3.00 04/17/23 04:00 90 13 106/65 (85) 89 Nasal Cannula 3.00 04/17/23 04:00 79 04/17/23 04:00 95 Nasal Cannula 3.00 04/17/23 03:28 92 107/63 04/17/23 03:00 94 16 113/65 (82) Nasal Cannula 3.00 04/17/23 02:00 92 19 54/20 (25) Nasal Cannula 3.00 04/17/23 01:00 90 11 106/63 (77) 91 Nasal Cannula 3.00 04/17/23 00:47 85 109/63 04/17/23 00:00 99 Nasal Cannula 3.00 04/17/23 00:00 85 11 102/56 (75) 98 Nasal Cannula 3.00 04/16/23 23:06 90 11 116/69 (78) 92 Nasal Cannula 3.00 04/16/23 22:00 87 21 81/58 (67) 89 Nasal Cannula 3.00 04/16/23 21:00 89 14 98/51 (53) 95 Nasal Cannula 3.00 04/16/23 20:36 75 78/40 04/16/23 20:00 94 14 116/95 (100) 94 Nasal Cannula 3.00 04/16/23 19:45 96 13 64/42 (48) 98 Nasal Cannula 3.00 04/16/23 19:30 89 15 79/71 (73) 100 Nasal Cannula 3.00 04/16/23 19:26 95 Nasal Cannula 3.00 04/16/23 19:15 96 16 79/57 (66) 86 Nasal Cannula 3.00 04/16/23 19:11 107 04/16/23 19:00 36.2 87 14 81/58 (66) 92 Nasal Cannula 3.00 04/16/23 16:19 37.2 80 16 83/70 (74) Room Air I & O 04/17/23 07:00 Intake Total 1340 ml Output Total 500 ml Balance 840 ml Height & Weight Height: 5'0.00" Weight: 123lbs. 0.0oz. 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
[2023-04-17] MEDS: NOREPINEPHRINE 8 MG/250 ML 250 ML IV SCH ×2 (10:29→18:26)
[2023-04-17] MEDS ORDERED: ALBUMIN 25% 25 GM/100 ML 50 ML IV PRN (10:30)
[2023-04-17 11:09] LABS: INR 8.5 (0.8-1.4)
[2023-04-17] MEDS ORDERED: VANCOMYCIN INJECTION 0.1 MG in NS (IVPB) 250 ML IV SCH (11:15)
--- NOTE | 2023-04-17 11:15 | History & Physical-Hospitalist ---
History of Present Illness HPI/Chief Complaint Patient is an 87-year-old female who presented to the emergency department due to near syncope. She resides in a local [place] [facility] and staff reported to EMS that she was nodding off for several seconds while having a conversation which is abnormal for her. She was found to be quite hypotensive in the emergency department. She has no complaints to me nor did she for the emergency department though there was mention of a sore on her bottom that has been present for quite a while. Labs revealed leukocytosis there was concern for sepsis so she was admitted for further evaluation. Throughout the night her blood pressures dropped further and she was transferred to the ICU for vasopressor support. This morning she is awake and alert but is still quite hypotensive. Source: patient Date Seen 04/17/23 Time Seen by a Provider: 11:08 Attending Physician Reggie Conde MD PCP Admitting Physician: Dolores Carmona MD Attending Physician: Dolores Carmona MD Referring Physician Date of Admission Apr 16, 2023 at 18:27 Home Medications & Allergies Home Medications Reviewed patient Home Medication Reconciliation performed by pharmacy medication reconciliations vtc technician and/or nursing. Patients Allergies have been reviewed. Allergies Allergies Coded Allergies adhesive tape (Verified Allergy, Mild, RASH, 08/29/20) aspirin (Verified Allergy, Unknown, 08/29/20) meperidine (Verified Allergy, Unknown, 08/29/20) nitrofurantoin (Verified Allergy, Unknown, 08/29/20) Uncoded Allergies SURGICAL TAPE ( Allergy, Unknown, 05/14/07) Past Inqoott-Xbrrup-Aokcbe Hx Patient Social History Employed/Student: retired Tobacco Use?: No Smoking Status: Never a Smoker Smokeless Tobacco Frequency: Never a User Use of E-Cig and/or Vaping dev: No Use of E-Cig and/or Vaping Edy: Never a User Substance use?: No Alcohol Use?: No Pt feels they are or have been: No Immunizations Up To Date Date of Influenza Vaccine: Jul 09, 2020 Tetanus Booster (TDap): Unknown PED Vaccines UTD: No Date of Pneumonia Vaccine: Aug 31, 2017 Seasonal Allergies Seasonal Allergies: No Current Status status: No status: No Advance Directives: No Advance Directive Location: Unable to obtain copy Communicates: Verbally Primary Language: Frisian Preferred Spoken Language: Frisian Is interpretation needed?: No Sensory deficits: Vision impairment Implanted or Applied Medical D: None Past Medical History Surgeries: Abdominal, Bowel Surgery, Gallbladder, Hysterectomy, Joint Replacement, Orthopedic, Vascular Surgery COPD, Emphysema Atrial Fibrillation, Deep Vein Thrombosis, Hypertension, Irregular Heartbeat 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: Menopausal Renal Failure, UTI-Chronic Gastroesophageal Reflux, Hiatal Hernia, Ulcer Osteoporosis, Arthritis, Fractures Glaucoma Hearing Impairment: Hard of Hearing Sleep Difficulties, Anxiety, Depression Blood Disorders: Yes Adverse Reaction/Blood Tranf: Yes (Transfusion reaction with platelets 05/2019) Family Medical History Alcoholism 19 FATHER Cardiovascular disease 19 MOTHER Colon cancer 19 MOTHER Diabetes mellitus 19 MOTHER Neoplasm 19 MOTHER (colon ca w/ mets to liver ) Respiratory disorder 19 FATHER No Family History of: AIDS Abdominal aortic aneurysm Arthritis Asthma Dementia Drug abuse Hypertension Kidney disease Myocardial infarction Psychosocial problem Seizure disorder Severe allergy Thyroid disease Tuberculosis Cancer, Diabetes Review of Systems Constitutional: see HPI Physical Exam Physical Exam Vital Signs Vital Signs - First Documented 04/16/23 04/16/23 04/16/23 16:19 18:58 19:00 Temp 37.2 Pulse 80 Resp 16 B/P (MAP) 83/70 (74) Pulse Ox 97 O2 Delivery Room Air O2 Flow Rate 3.00 Capillary Refill : Less Than 3 Seconds Height, Weight, BMI Height: 5'0.00" Weight: 123lbs. 0.0oz. 55.453412pk; 37.24 BMI Method:Stated General Appearance: No Apparent Distress, Chronically ill Respiratory: Lungs Clear, No Accessory Muscle Use Cardiovascular: No Murmur, Irregularly Irregular Gastrointestinal: Normal Bowel Sounds, Soft Neurologic/Psychiatric: Alert, Oriented x3 Results Results/Procedures Labs Laboratory Tests 04/18/23 03:20 04/19/23 03:45 Patient resulted labs reviewed. Imaging: Reviewed Imaging Report Imaging [facility] [place] NAME: DORINA SEAMAN [facility] REC#: [id number] PT STATUS: ADM IN : 1935 PHYSICIAN: BRUCE PARSONS DO ADMIT DATE: 04/16/23/[facility] Signed Date of Exam:04/16/23 CHEST 1 VIEW, AP/PA ONLY Indication: Hypotension and syncope. Frontal chest obtained at 5:32 p.m. and compared to 03/15/2023. The heart is normal in size. There is some mild right basilar atelectasis and minimal left basilar infiltrate versus atelectasis. There is no pneumothorax or pleural fluid. Impression: Poor inspiration. Mild right basilar atelectasis and mild left basilar infiltrate versus atelectasis. Dictated by: Dictated on workstation # [id number] Dict: 04/16/23 1751 Trans: 04/16/23 183 CVB [id number] Interpreted by: PERLITA LINDSEY MD Electronically signed by: PERLITA LINDSEY MD 04/16/231829 Assessment/Plan Admission Diagnosis Hypotension Admission Status: Inpatient Order (span 2 midnights) Reason for Inpatient Admission: see below Assessment and Plan Hypotension Etiology unclear at this time Will cover with broad spectrum abx to cover for sepsis- add vanc Has sore on sacrum and under pannus- wound care consulted Does not appear to be on any antihypertensives or steroids Repeat CXR Levophed ordered by eiCU UOP low overnight and lasix ordered, trend- albumin added as well Supratherapuetic INR A fib INR 8.5 but has history of DVT and has IVC filter in place and in a fib so h igh risk No evidence of bleeding so will hold off on Vitamin K unless that changes Check in AM Pressure ulcers- POA Wound care consulted, appreciate recs Defer management to them RIZWAN VIDAL MD Apr 17, 2023 11:15
[2023-04-17] MEDS ORDERED: VANCOMYCIN 1500MG/300ML PREMIX IV NR (12:00)
[2023-04-17] MEDS: HYDROcodone/APAP 5 MG/325 MG (LORTAB) TAB PO PRN (13:05)
[2023-04-17] MEDS ORDERED: WRF1T PO (13:40)
[2023-04-17] MEDS ORDERED: DIPH25TA65 PO (13:40)
[2023-04-17] MEDS ORDERED: WARF-47 PO (13:40)
[2023-04-17] MEDS ORDERED: DEXT30DR6 OU (13:40)
[2023-04-17] MEDS ORDERED: POLY15DR35 OU (13:46)
[2023-04-17] MEDS ORDERED: ARTIFICAL TEARS 0.4 ML UNIT DOSE (REFRESH PLUS) OU PRN (14:15)
--- NOTE | 2023-04-17 15:52 | Wound Care Assessment ---
Wound Care Assessment Date Seen by Provider: Apr 17, 2023 Time Seen by Provider: 11:30 Chief Complaint 1. Abd. ulcer 2. Sacral ulcer HPI This 87 year old female with severe dementia was admitted to hospital with concern for sepsis. She is noted to have chronic ulcer to L. abdomen and p ressure/moisture related ulcer to sacrum. Her wound healing will be complicated by: severe PEM, COPD, atrial fibrillation, severe dementia, CKD 3, Immobility and generalized weakness. Her abdominal ulcer appears well treated and healing. No signs of obvious candidal infection noted. She is currently on zosyn and vancomycin for broad spectrum coverage. She is also requiring levophed for pressor support. She is DNR status. I plan to dress her abdominal ulcer with silver alginate and BFD. The same for sacrum as well. She will need protein supplementation as well. She did received Albumin infusion as well. Past Medical History: Admits Deep Vein Thrombosis Smoking Status: Never a Smoker Recreational Drug Use: No Alcohol Use: Denies Use Review of Systems Other systems Unable to obtain due to mental status Exam Vital Signs Date Time Temp Pulse Resp B/P (MAP) Pulse Ox O2 Delivery O2 Flow Rate FiO2 04/17/23 15:08 97 Nasal Cannula 3.00 04/17/23 14:00 93 13 95/49 (64) 04/17/23 11:40 36.3 Capillary Refill : Less Than 3 Seconds General Appearance: no apparent distress, obese HEENT: other (hard of hearing) Neck: full range of motion Cardiovascular: other (1+ edema b/l LE) Respiratory: no respiratory distress, no accessory muscle use Gastrointestinal: other (incontinence of bowel) Extremities: pedal edema Neurologic/Psychiatric: alert, normal mood/affect, other (dementia) Skin: normal color, warm/dry Wound assessment: 1. L. abdomen: 0.4x4.1x0.1cm. The epithelialization is medium. There is no tunneling or undermining. Drainage is medium and serous. Granulation is medium and pink. Necrotic is slough and medium. The margins are flat. 2. Sacrum: 3.1x2x0.3cm. The epithelialization is none. There is no tunneling or undermining. Drainage is large and serosanguinous. Granulation is none. Necrotic is large and slough. The margins are flat. There is hyperpigmentation in periwound. Results Laboratory Tests 04/16/23 16:33: White Blood Count 13.7H, Red Blood Count 3.86, Hemoglobin 12.9, Hematocrit 42, Mean Corpuscular Volume 110H, Mean Corpuscular Hemoglobin 33, Mean Corpuscular Hemoglobin Concent 30L, Red Cell Distribution Width 17.7H, Platelet Count 134, Mean Platelet Volume 12.2, Immature Granulocyte % (Auto) 1, Neutrophils (%) (Auto) 88H, Lymphocytes (%) (Auto) 6L, Monocytes (%) (Auto) 3, Eosinophils (%) (Auto) 2, Basophils (%) (Auto) 0, Neutrophils # (Auto) 12.1H, Lymphocytes # (Auto) 0.8L, Monocytes # (Auto) 0.4, Eosinophils # (Auto) 0.2, Basophils # (Auto) 0.1, Immature Granulocyte # (Auto) 0.2H, Neutrophils % (Manual) 85, Lymphocytes % (Manual) 3, Monocytes % (Manual) 0, Eosinophils % (Manual) 0, Basophils % (Manual) 0, Band Neutrophils 12, Percent Immature Platelet Fraction 10.7H, Anisocytosis SLIGHT, Macrocytosis SLIGHT, Sodium Level 141, Potassium Level 3.9, Chloride Level 106, Carbon Dioxide Level 26, Anion Gap 9, Blood Urea Nitrogen 25H, Creatinine 1.21, Estimat Glomerular Filtration Rate 43, BUN/Creatinine Ratio 21, Glucose Level 86, Calcium Level 8.8, Corrected Calcium 10.4H, Total Bilirubin 0.8, Aspartate Amino Transf (AST/SGOT) 25, Alanine Aminotransferase (ALT/SGPT) 15, Alkaline Phosphatase 113, Total Protein 5.2L, Al bumin 2.0L 04/16/23 17:03: Urine Color ORANGE, Urine Clarity CLEAR, Urine pH 5.5, Urine Specific [place] 1.025H, Urine Protein NEGATIVE, Urine Glucose (UA) NEGATIVE, Urine Ketones NEGATIVE, Urine Nitrite NEGATIVE, Urine Bilirubin NEGATIVE, Urine Urobilinogen 0.2, Urine Leukocyte Esterase NEGATIVE, Urine RBC (Auto) 3+H, Urine RBC 25-50H, Urine WBC RARE, Urine Squamous Epithelial Cells RARE, Urine Crystals NONE, Urine Bacteria TRACE, Urine Casts NONE, Urine Mucus NEGATIVE, Urine Culture Indicated NO 04/16/23 17:43: Lactic Acid Level 2.07*H 04/16/23 18:50: Lactic Acid Level 1.70 04/17/23 04:26: White Blood Count 20.5H, Red Blood Count 3.81, Hemoglobin 12.3, Hematocrit 41, Mean Corpuscular Volume 106H, Mean Corpuscular Hemoglobin 32, Mean Corpuscular Hemoglobin Concent 30L, Red Cell Distribution Width 17.9H, Platelet Count 202, Mean Platelet Volume 12.1, Immature Granulocyte % (Auto) 0, Neutrophils (%) (Auto) 92H, Lymphocytes (%) (Auto) 3L, Monocytes (%) (Auto) 2, Eosinophils (%) (Auto) 2, Basophils (%) (Auto) 1, Neutrophils # (Auto) 18.9H, Lymphocytes # (Auto) 0.6L, Monocytes # (Auto) 0.4, Eosinophils # (Auto) 0.5H, Basophils # (Auto) 0.1, Immature Granulocyte # (Auto) 0.1, Sodium Level 139, Potassium Level 3.6, Chloride Level 108H, Carbon Dioxide Level 21, Anion Gap 10, Blood Urea Nitrogen 25H, Creatinine 1.14, Estimat Glomerular Filtration Rate 47, BUN/Creatinine Ratio 22, Glucose Level 60*L, Calcium Level 8.0L, Corrected Calcium 9.8, Phosphorus Level 2.8, Magnesium Level 1.4L, Total Bilirubin 0.8, Aspartate Amino Transf (AST/SGOT) 21, Alanine Aminotransferase (ALT/SGPT) 15, Alkaline Phosphatase 112, Total Protein 4.5L, Albumin 1.8L 04/17/23 06:28: Glucometer 143H 04/17/23 10:23: Prothrombin Time 68.0*H, INR Comment 8.5*H, Activated Partial Thromboplast Time 73H 04/17/23 10:40: Glucometer 152H Microbiology 04/16/23 Blood Culture - Preliminary, Resulted No growth Microbiology 04/16/23 Blood Culture - Preliminary, Resulted No growth 04/16/23 Blood Culture - Preliminary, Resulted No growth Assessment/Plan/Dx Assessment: 1. Non-pressure ulcer L. abdomen 2. Unstageable pressure ulcer sacrum 3. MASD 4. Incontinence bowel/bladder 5. Immobility/generalized weakness 6. Severe PEM 7. COPD 8. Atrial fibrillation 9. CKD stage 3 10. Dementia Plan: 1. Cleanse with Vashe. Apply silver alginate HF and allevyn BFD daily 2. Cleanse with Vashe. Apply silver algiante HF and Allevyn BFD daily. Off load accordingly 3. Frequent changes for soiling. Barrier ointment 4. Barrier ointment and pericare 5. Frequent position changes 6. Protein supplementation 7. Defer to primary 8. Defer to primary 9. Defer to primary 10. Defer to primary TRACY LOCKETT MD Apr 17, 2023 15:52
[2023-04-17] MEDS: oxyCODONE/APAP 10/325MG (PERCOCET 10) TABLET PO SCH (18:01)
[2023-04-17] MEDS: TOLTERODINE LA 2 MG (DETROL LA) CAP PO SCH (21:22)
[2023-04-17] MEDS: morphine ER 30 MG (MS CONTIN) TAB PO SCH (21:22)
[2023-04-17] MEDS: SALIVA SUBSTITUTE 60 ML SPRAY(MOUTHKOTE) MM SCH (21:23)
[2023-04-17] MEDS: PANTOPRAZOLE 40 MG (PROTONIX) TAB PO SCH (21:23)
[2023-04-18] MEDS: PIPERACILLIN SODIUM/TAZOBACTAM 4.5 GM in NS (IVPB) 100 ML IV SCH ×4 (00:13→23:40)
[2023-04-18] MEDS: NOREPINEPHRINE 8 MG/250 ML 250 ML IV SCH ×4 (00:28→23:15)
[2023-04-18 03:50] LABS: BASOPHILS # (AUTO) 0.1 10^3/uL (0.0-0.1); BASOPHILS % (AUTO) 0 % (0-10); EOSINOPHILS % (AUTO) 0 % (0-10); HEMATOCRIT 37 % (35-52); HEMOGLOBIN 11.3 g/dL (11.5-16.0); LYMPHOCYTES # (AUTO) 1.3 10^3/uL (1.0-4.0); LYMPHOCYTES % (AUTO) 5 % (12-44); MEAN CORPUSCULAR HEMOGLOBIN 33 pg (25-34); MEAN CORPUSCULAR HGB CONC 31 g/dL (32-36); MEAN CORPUSCULAR VOLUME 106 fL (80-99); MEAN PLATELET VOLUME 12.1 fL (9.0-12.2); MONOCYTES # (AUTO) 0.8 10^3/uL (0.0-1.0); MONOCYTES % (AUTO) 3 % (0-12); NEUTROPHILS # (AUTO) 23.6 10^3/uL (1.8-7.8); NEUTROPHILS % (AUTO) 91 % (42-75); PLATELET COUNT 176 10^3/uL (130-400); WHITE BLOOD COUNT 25.9 10^3/uL (4.3-11.0)
[2023-04-18 04:07] LABS: BILIRUBIN,TOTAL 0.7 MG/DL (0.1-1.0); CALCIUM 8.1 MG/DL (8.5-10.1); CREATININE SERUM 1.39 MG/DL (0.60-1.30); MAGNESIUM 2.3 MG/DL (1.6-2.4); PHOSPHORUS 2.7 MG/DL (2.3-4.7); POTASSIUM 4.1 MMOL/L (3.6-5.0); TOTAL PROTEIN 4.5 GM/DL (6.4-8.2)
[2023-04-18 04:38] LABS: BAND NEUTROPHILS 29 %; INR 13.3 (0.8-1.4); LYMPHOCYTES % (MANUAL) 4 %; MONOCYTES % (MANUAL) 2 %; NEUTROPHILS % (MANUAL) 64 %; PROTHROMBIN TIME PATIENT 95.4 SEC (12.2-14.7)
[2023-04-18] MEDS: MAGNESIUM 1 GM/100 ML IVPB 100 ML IV SCH (05:30)
[2023-04-18] MEDS: POTASSIUM CL 10MEQ/50ML IVPB 50 ML IV SCH (05:30)
[2023-04-18] MEDS: KCL 20 MEQ TAB (K-DUR) PO SCH (05:30)
[2023-04-18 06:11] LABS: INR 14.6 (0.8-1.4); PROTHROMBIN TIME PATIENT 101.9 SEC (12.2-14.7)
--- NOTE | 2023-04-18 07:14 | Tele-ICU Progress Note ---
Subjective Date Seen by a Provider: Apr 18, 2023 Time Seen by a Provider: 07:10 Subjective/Events-last exam called for INR 14.6, PT 101.9, no active bleeding WIll give Vit K 5 mg SQ Sepsis Event Evaluation Height, Weight, BMI Height: 5'0.00" Weight: 123lbs. 0.0oz. 55.208042bb; 40.73 BMI Method:Stated Focused Exam Lactate Level 04/16/23 17:43: Lactic Acid Level 2.07*H 04/16/23 18:50: Lactic Acid Level 1.70 Exam Exam Patient acknowledged, consented, and participated in this virtual visit which was conducted using real time audio/video Vital Signs Date Time Temp Pulse Resp B/P (MAP) Pulse Ox O2 Delivery O2 Flow Rate FiO2 04/18/23 06:45 79 11 101/52 (68) 100 Nasal Cannula 3.00 04/18/23 06:32 84 16 109/57 (74) 100 Nasal Cannula 3.00 04/18/23 06:15 110/66 (77) 04/18/23 06:00 81 10 109/61 (70) 100 Nasal Cannula 3.00 04/18/23 05:45 79 21 104/59 (75) 100 Nasal Cannula 3.00 04/18/23 05:30 74 11 100/60 (76) 100 Nasal Cannula 3.00 04/18/23 05:15 78 10 104/66 (79) 100 Nasal Cannula 3.00 04/18/23 05:00 80 12 107/55 (72) 100 Nasal Cannula 3.00 04/18/23 05:00 107/55 (80) 04/18/23 04:45 77 13 113/63 (93) 100 Nasal Cannula 3.00 04/18/23 04:30 75 14 104/46 (75) 100 Nasal Cannula 3.00 04/18/23 04:15 79 12 108/55 (85) 100 Nasal Cannula 3.00 04/18/23 04:00 97 Nasal Cannula 3.00 04/18/23 04:00 116/62 (79) 04/18/23 03:45 80 23 114/71 (84) 100 Nasal Cannula 3.00 04/18/23 03:30 77 10 110/58 (85) 100 Nasal Cannula 3.00 04/18/23 03:15 93 12 116/66 (83) 100 Nasal Cannula 3.00 04/18/23 03:00 92 34 108/72 (80) 100 Nasal Cannula 3.00 04/18/23 02:45 108/55 (71) Nasal Cannula 3.00 04/18/23 02:30 88 18 108/67 (87) 100 Nasal Cannula 3.00 04/18/23 02:15 112/59 (76) 04/18/23 02:00 82 11 107/69 (84) 100 Nasal Cannula 3.00 04/18/23 01:56 83 10 116/65 (85) 100 Nasal Cannula 3.00 04/18/23 01:54 202 04/18/23 01:45 90 14 111/61 (85) 100 Nasal Cannula 3.00 04/18/23 01:30 82 22 110/53 (70) 100 Nasal Cannula 3.00 04/18/23 01:15 89 35 100/66 (78) 100 Nasal Cannula 3.00 04/18/23 01:00 82 04/18/23 01:00 89 15 106/62 (83) 100 Nasal Cannula 3.00 04/18/23 00:45 79 14 104/58 (75) 100 Nasal Cannula 3.00 04/18/23 00:30 83 17 107/61 (86) 100 Nasal Cannula 3.00 04/18/23 00:28 87 105/60 04/18/23 00:15 102 26 105/60 (74) 91 Nasal Cannula 3.00 04/18/23 00:00 90 14 96/48 (64) 100 Nasal Cannula 3.00 04/17/23 23:59 95 Nasal Cannula 3.00 04/17/23 23:24 36.7 04/17/23 23:00 100 16 95/59 (71) 100 Nasal Cannula 3.00 04/17/23 22:30 94 14 101/63 (79) 97 Nasal Cannula 3.00 04/17/23 22:15 101 17 110/56 (78) 100 Nasal Cannula 3.00 04/17/23 22:00 96 13 99/63 (73) 99 Nasal Cannula 3.00 04/17/23 21:45 102 38 104/68 (76) 91 Nasal Cannula 3.00 04/17/23 21:30 105 26 112/67 (86) 99 Nasal Cannula 3.00 7/10/23 21:15 112 20 127/72 (89) 88 Nasal Cannula 3.00 04/17/23 21:00 92 38 105/57 (76) 100 Nasal Cannula 3.00 04/17/23 20:45 96 38 92/36 (56) 100 Nasal Cannula 3.00 04/17/23 20:30 105 29 108/58 (77) 99 Nasal Cannula 3.00 04/17/23 20:15 101 32 102/53 (72) 100 Nasal Cannula 3.00 04/17/23 20:00 97 22 103/56 (66) 100 Nasal Cannula 3.00 04/17/23 20:00 93 Nasal Cannula 3.00 04/17/23 19:45 101 26 84/53 (64) 97 Nasal Cannula 3.00 04/17/23 19:30 99 26 104/55 (75) 96 Nasal Cannula 3.00 04/17/23 19:15 97 96/57 (73) 91 Nasal Cannula 3.00 04/17/23 19:00 36.3 127/102 (111) Nasal Cannula 3.00 04/17/23 19:00 96 04/17/23 18:26 87 101/92 04/17/23 18:00 87 21 101/92 (95) 92 Nasal Cannula 3.00 04/17/23 17:00 98 13 103/84 (90) 88 Nasal Cannula 3.00 04/17/23 16:00 75 22 121/32 (61) 100 Nasal Cannula 3.00 04/17/23 15:40 36.3 Nasal Cannula 3.00 04/17/23 15:08 97 Nasal Cannula 3.00 04/17/23 15:00 82 16 58/27 (37) 95 Nasal Cannula 3.00 04/17/23 14:00 93 13 95/49 (64) 100 Nasal Cannula 3.00 04/17/23 13:00 70 04/17/23 13:00 72 15 94/51 (65) 100 Nasal Cannula 3.00 04/17/23 12:00 96 Nasal Cannula 3.00 04/17/23 12:00 90 19 102/64 (77) 100 Nasal Cannula 3.00 04/17/23 11:40 36.3 3.00 04/17/23 11:00 88 24 93/50 (64) 100 Nasal Cannula 3.00 04/17/23 10:29 99/61 04/17/23 10:00 96 12 94/43 (60) 97 Nasal Cannula 3.00 04/17/23 09:00 91 22 85/50 (62) 100 Nasal Cannula 3.00 04/17/23 08:30 102/58 04/17/23 08:00 98 Nasal Cannula 3.00 04/17/23 08:00 99 22 91/50 (64) 96 Nasal Cannula 3.00 04/17/23 07:40 36.0 Nasal Cannula 3.00 I & O 04/18/23 07:00 Intake Total 900 ml Output Total 325 ml Balance 575 ml Height & Weight Height: 5'0.00" Weight: 123lbs. 0.0oz. 55.456880zs; 40.73 BMI Method:Stated General Appearance: No Apparent Distress, Chronically ill HEENT: PERRL/EOMI, Normal ENT Inspection, Pharynx Normal Neck: Full Range of Motion, Supple Respiratory: Lungs Clear, No Accessory Muscle Use Cardiovascular: No Murmur, Irregularly Irregular Capillary Refill: Less Than 3 Seconds Gastrointestinal: other (incontinence of bowel) Extremity: Normal Capillary Refill, Normal Inspection, Non Tender, No Calf Tenderness Neurologic/Psychiatric: Alert, Oriented x3 Skin: Normal Color, Warm/Dry Results Lab Laboratory Tests 04/16/23 16:33 04/17/23 04:26 04/18/23 03:20 Assessment/Plan Assessment/Plan called for INR 14.6, PT 101.9, no active bleeding WIll give Vit K 5 mg SQ Critical Care: Critically Ill Patient Time spent with patient (mins): 10 YNES PAIGE MD Apr 18, 2023 07:14
[2023-04-18] MEDS: DOCUSATE SODIUM 100 MG (COLACE) CAP PO SCH ×2 (07:15→20:45)
[2023-04-18] MEDS: SENNOSIDES 8.6 MG (SENOKOT) TAB PO SCH ×2 (07:15→20:45)
[2023-04-18] MEDS ORDERED: PHYTONADIONE (ADULT) INJECTION 10 MG in NS (IVPB) 50 ML IV ONE (07:30)
--- NOTE | 2023-04-18 08:53 | Tele-ICU Progress Note ---
Subjective Date Seen by a Provider: Apr 18, 2023 Time Seen by a Provider: 08:47 Subjective/Events-last exam (Tele-ICU Physician , Progress Note ) Service provided via interactive audio and video telecommunications E-CARE system to a patient admitted to ICU bed in [facility]. Patient is seen today due to persistent need of ICU care Available chart/ vitals / labs / Images reviewed Video assessment done using teleICU camera, rest of exam as per RN Discussed with RN Events overnight : Afebrile hemodynamically stable Respiratory - 3L I/O = Drips: Pressors- levo @ 0.2 87 yo F with UTI, septic shock, getting IV Zosyn, BC show NG so far, BP needing pressors off IV Phenylepiphrine, on IV Levo @ 0.2 last BP 105/72 Has a fib, with current rate 25=250 has been on Eliquis, INR today 14.6, PT 101.9, no active bleeding, 10 mg IV Vit k given, also high yesterday, Has IVC filter for Hx of DVT CXR 04/17 shows elevated diaphragms, atelcatasis, on 3 lpm NC, not working hard to breathe Sepsis Event Evaluation Height, Weight, BMI Height: 5'0.00" Weight: 123lbs. 0.0oz. 55.939955gf; 40.73 BMI Method:Stated Focused Exam Lactate Level 04/16/23 17:43: Lactic Acid Level 2.07*H 04/16/23 18:50: Lactic Acid Level 1.70 Exam Exam Patient acknowledged, consented, and participated in this virtual visit which was conducted using real time audio/video Vital Signs Date Time Temp Pulse Resp B/P (MAP) Pulse Ox O2 Delivery O2 Flow Rate FiO2 04/18/23 08:00 35.8 04/18/23 08:00 85 16 105/72 (83) 100 Nasal Cannula 3.00 04/18/23 07:16 84 74/65 04/18/23 07:00 82 04/18/23 07:00 82 12 90/61 (71) 93 Nasal Cannula 3.00 04/18/23 06:45 79 11 101/52 (68) 100 Nasal Cannula 3.00 04/18/23 06:32 84 16 109/57 (74) 100 Nasal Cannula 3.00 04/18/23 06:15 110/66 (77) 04/18/23 06:00 81 10 109/61 (70) 100 Nasal Cannula 3.00 04/18/23 05:45 79 21 104/59 (75) 100 Nasal Cannula 3.00 04/18/23 05:30 74 11 100/60 (76) 100 Nasal Cannula 3.00 04/18/23 05:15 78 10 104/66 (79) 100 Nasal Cannula 3.00 04/18/23 05:00 80 12 107/55 (72) 100 Nasal Cannula 3.00 04/18/23 05:00 107/55 (80) 04/18/23 04:45 77 13 113/63 (93) 100 Nasal Cannula 3.00 04/18/23 04:30 75 14 104/46 (75) 100 Nasal Cannula 3.00 04/18/23 04:15 79 12 108/55 (85) 100 Nasal Cannula 3.00 04/18/23 04:00 97 Nasal Cannula 3.00 04/18/23 04:00 116/62 (79) 04/18/23 03:45 80 23 114/71 (84) 100 Nasal Cannula 3.00 04/18/23 03:30 77 10 110/58 (85) 100 Nasal Cannula 3.00 04/18/23 03:15 93 12 116/66 (83) 100 Nasal Cannula 3.00 04/18/23 03:00 92 34 108/72 (80) 100 Nasal Cannula 3.00 04/18/23 02:45 108/55 (71) Nasal Cannula 3.00 04/18/23 02:30 88 18 108/67 (87) 100 Nasal Cannula 3.00 04/18/23 02:15 112/59 (76) 04/18/23 02:00 82 11 107/69 (84) 100 Nasal Cannula 3.00 04/18/23 01:56 83 10 116/65 (85) 100 Nasal Cannula 3.00 04/18/23 01:54 202 04/18/23 01:45 90 14 111/61 (85) 100 Nasal Cannula 3.00 04/18/23 01:30 82 22 110/53 (70) 100 Nasal Cannula 3.00 04/18/23 01:15 89 35 100/66 (78) 100 Nasal Cannula 3.00 04/18/23 01:00 82 04/18/23 01:00 89 15 106/62 (83) 100 Nasal Cannula 3.00 04/18/23 00:45 79 14 104/58 (75) 100 Nasal Cannula 3.00 04/18/23 00:30 83 17 107/61 (86) 100 Nasal Cannula 3.00 04/18/23 00:28 87 105/60 04/18/23 00:15 102 26 105/60 (74) 91 Nasal Cannula 3.00 04/18/23 00:00 90 14 96/48 (64) 100 Nasal Cannula 3.00 04/17/23 23:59 95 Nasal Cannula 3.00 04/17/23 23:24 36.7 04/17/23 23:00 100 16 95/59 (71) 100 Nasal Cannula 3.00 04/17/23 22:30 94 14 101/63 (79) 97 Nasal Cannula 3.00 04/17/23 22:15 101 17 110/56 (78) 100 Nasal Cannula 3.00 04/17/23 22:00 96 13 99/63 (73) 99 Nasal Cannula 3.00 04/17/23 21:45 102 38 104/68 (76) 91 Nasal Cannula 3.00 04/17/23 21:30 105 26 112/67 (86) 99 Nasal Cannula 3.00 04/17/23 21:15 112 20 127/72 (89) 88 Nasal Cannula 3.00 04/17/23 21:00 92 38 105/57 (76) 100 Nasal Cannula 3.00 04/17/23 20:45 96 38 92/36 (56) 100 Nasal Cannula 3.00 04/17/23 20:30 105 29 108/58 (77) 99 Nasal Cannula 3.00 04/17/23 20:15 101 32 102/53 (72) 100 Nasal Cannula 3.00 04/17/23 20:00 97 22 103/56 (66) 100 Nasal Cannula 3.00 04/17/23 20:00 93 Nasal Cannula 3.00 04/17/23 19:45 101 26 84/53 (64) 97 Nasal Cannula 3.00 04/17/23 19:30 99 26 104/55 (75) 96 Nasal Cannula 3.00 04/17/23 19:15 97 96/57 (73) 91 Nasal Cannula 3.00 04/17/23 19:00 36.3 127/102 (111) Nasal Cannula 3.00 04/17/23 19:00 96 04/17/23 18:26 87 101/92 04/17/23 18:00 87 21 101/92 (95) 92 Nasal Cannula 3.00 04/17/23 17:00 98 13 103/84 (90) 88 Nasal Cannula 3.00 04/17/23 16:00 75 22 121/32 (61) 100 Nasal Cannula 3.00 04/17/23 15:40 36.3 Nasal Cannula 3.00 04/17/23 15:08 97 Nasal Cannula 3.00 04/17/23 15:00 82 16 58/27 (37) 95 Nasal Cannula 3.00 04/17/23 14:00 93 13 95/49 (64) 100 Nasal Cannula 3.00 04/17/23 13:00 70 04/17/23 13:00 72 15 94/51 (65) 100 Nasal Cannula 3.00 04/17/23 12:00 96 Nasal Cannula 3.00 04/17/23 12:00 90 19 102/64 (77) 100 Nasal Cannula 3.00 04/17/23 11:40 36.3 3.00 04/17/23 11:00 88 24 93/50 (64) 100 Nasal Cannula 3.00 04/17/23 10:29 99/61 04/17/23 10:00 96 12 94/43 (60) 97 Nasal Cannula 3.00 04/17/23 09:00 91 22 85/50 (62) 100 Nasal Cannula 3.00 I & O 04/18/23 07:00 Intake Total 900 ml Output Total 325 ml Balance 575 ml Height & Weight Height: 5'0.00" Weight: 123lbs. 0.0oz. 55.326147qt; 40.73 BMI Method:Stated General Appearance: No Apparent Distress, Chronically ill HEENT: PERRL/EOMI, Normal ENT Inspection, Pharynx Normal Neck: Full Range of Motion, Supple Respiratory: Lungs Clear, No Accessory Muscle Use, Crackles, Decreased Breath Sounds Cardiovascular: No Murmur, Irregularly Irregular, Other (crackles in mid right lung) Capillary Refill: Less Than 3 Seconds Gastrointestinal: normal bowel sounds, non tender, soft, other (incontinence of bowel) Extremity: Normal Capillary Refill, Normal Inspection, Non Tender, No Calf Tenderness, Pedal Edema Neurologic/Psychiatric: Alert, Oriented x3, Other (+ 4 leg edema) Skin: Normal Color, Warm/Dry Results Lab Laboratory Tests 04/16/23 16:33 04/17/23 04:26 04/18/23 03:20 Assessment/Plan Assessment/Plan Elevated INR/PT, will give 10 mg IV Vit K and re check INR/PT this afternoon Urosepsis/septic shock, continute on IV Zosyn and IV Vanocmoycin try to lower pressor dose Pt DNR/DNI Critical Care: Critically Ill Patient Time spent with patient (mins): 25 YNES PAIGE MD Apr 18, 2023 08:53
[2023-04-18] MEDS ORDERED: PHYTONADIONE (ADULT) INJECTION 10 MG in NS (IVPB) 50 ML IV NR (09:00)
[2023-04-18] MEDS ORDERED: NON-FORMULARY MEDICATION 1 EA EA (Naloxegol Oxalate (Movantik) 25 MG) PO SCH (09:00)
[2023-04-18] MEDS: FAMOTIDINE 20 MG (PEPCID) TABLET PO SCH (09:09)
[2023-04-18] MEDS: morphine ER 30 MG (MS CONTIN) TAB PO SCH (09:09)
[2023-04-18] MEDS: PANTOPRAZOLE 40 MG (PROTONIX) TAB PO SCH ×2 (09:09→20:45)
[2023-04-18] MEDS: SALIVA SUBSTITUTE 60 ML SPRAY(MOUTHKOTE) MM SCH ×2 (09:11→20:46)
[2023-04-18] MEDS: oxyCODONE/APAP 10/325MG (PERCOCET 10) TABLET PO SCH (09:13)
[2023-04-18] MEDS: HYPOCHLOROUS ACID/NaCl (VASHE) 250 ML IR SCH (10:56)
[2023-04-18] MEDS: PHENYLEPHRINE DRIP 250 ML IV SCH (11:04)
--- NOTE | 2023-04-18 11:25 | Progress Note - Hospitalist ---
Subjective HPI/CC On Admission Date Seen by Provider: Apr 18, 2023 Patient is an 87-year-old female who presented to the emergency department due to near syncope. [facility] and staff reported to EMS that she was nodding off for several seconds while having a conversation which is abnormal for her. She was found to be quite hypotensive in the emergency department. She has no complaints to me nor did she for the em ergency department though there was mention of a sore on her bottom that has been present for quite a while. Labs revealed leukocytosis there was concern for sepsis so she was admitted for further evaluation. Throughout the night her blood pressures dropped further and she was transferred to the ICU for vasopressor support. This morning she is awake and alert but is still quite hypotensive. Subjective/Events-last exam Pt had a run of vtach overnight and then was unresponsive. Family came to bedside and is here with her now. She did eventually rouse and is talking with h er daughter and sister. Sister is feeding her a banana. granddaughter is in the waiting room as well Updated them on her worsening labs this morning and my concern regarding her potential for recovery. They express understanding and granddaughter would like to try and get patient's daughter from [place] here to see her. Focused Exam Lactate Level 04/16/23 17:43: Lactic Acid Level 2.07*H 04/16/23 18:50: Lactic Acid Level 1.70 Objective Exam Vital Signs Vital Signs Date Time Temp Pulse Resp B/P (MAP) Pulse Ox O2 Delivery O2 Flow Rate FiO2 04/19/23 09:36 68 65/43 04/19/23 07:31 36.6 04/19/23 07:01 Nasal Cannula 2.00 04/19/23 07:01 100 04/19/23 06:00 13 Capillary Refill : Less Than 3 Seconds General Appearance: No Apparent Distress, Chronically ill Respiratory: Lungs Clear, No Respiratory Distress Cardiovascular: No Murmur, Irregularly Irregular Gastrointestinal: Normal Bowel Sounds, Soft Extremity: Pedal Edema Neurologic/Psychiatric: Alert, Other (oriented to person and place) Results/Procedures Lab Laboratory Tests 04/19/23 03:45 Patient resulted labs reviewed. Imaging: Reviewed Imaging Report Assessment/Plan Assessment and Plan Assess & Plan/Chief Complaint Hypotension Poor prognosis Etiology remains unclear Continue broad spectrum abx Has sore on sacrum and under pannus- wound care consulted Does not appear to be on any antihypertensives or steroids Repeat CXR without significant change or pna noted Levophed, wean as able UOP low yesterday- monitor today with better perfusion Discussed with family and will see how she does over the next day and may transition to hospice/comfort measures if not improvedment Supratherapuetic INR A fib INR up to 14 this AM High risk for reversal but trending up so will trial vitamin K Trend INRs Check in AM Pressure ulcers- POA Wound care consulted, appreciate recs Defer management to them Critical Care Critically Ill Patient RIZWAN VIDAL MD Apr 18, 2023 11:25
[2023-04-18] MEDS ORDERED: VANCOMYCIN 1250 MG/NS 250 ML PREMIX IV SCH (12:00)
[2023-04-18 16:27] LABS: INR 2.2 (0.8-1.4); PROTHROMBIN TIME PATIENT 23.9 SEC (12.2-14.7)
[2023-04-18] MEDS ORDERED: oxyCODONE/APAP 10/325MG (PERCOCET 10) TABLET PO PRN (16:30)
--- NOTE | 2023-04-18 16:36 | Diagnostic Imaging Report ---
EXAMINATION: Chest, one view. HISTORY: Sepsis. COMPARISON: 04/17/2023. FINDINGS: Lung volumes are small. There are small bilateral pleural effusions with overlying atelectasis or pneumonia. No pneumothorax. IMPRESSION: 1. Small pleural effusions with overlying atelectasis or pneumonia, similar to prior exam. Dictated by: Dictated on workstation # [id number]
[2023-04-18] MEDS: TOLTERODINE LA 2 MG (DETROL LA) CAP PO SCH (20:45)
[2023-04-18] MEDS: morphine ER 15 MG (MS CONTIN) TAB PO SCH (20:45)
[2023-04-18] MEDS: MICONAZOLE 2% POWDER (DESENEX AF) 90 GM TOP SCH (20:46)
[2023-04-18] MEDS ORDERED: morphine ER 30 MG (MS CONTIN) TAB PO SCH (21:00)
[2023-04-19] MEDS: PHENYLEPHRINE DRIP 250 ML IV SCH ×2 (01:43→16:28)
[2023-04-19 03:59] LABS: BASOPHILS # (AUTO) 0.1 10^3/uL (0.0-0.1); BASOPHILS % (AUTO) 0 % (0-10); EOSINOPHILS # (AUTO) 0.5 10^3/uL (0.0-0.3); EOSINOPHILS % (AUTO) 3 % (0-10); HEMATOCRIT 37 % (35-52); HEMOGLOBIN 11.3 g/dL (11.5-16.0); LYMPHOCYTES # (AUTO) 1.7 10^3/uL (1.0-4.0); LYMPHOCYTES % (AUTO) 8 % (12-44); MEAN CORPUSCULAR HEMOGLOBIN 33 pg (25-34); MEAN CORPUSCULAR HGB CONC 31 g/dL (32-36); MEAN CORPUSCULAR VOLUME 107 fL (80-99); MONOCYTES # (AUTO) 0.9 10^3/uL (0.0-1.0); MONOCYTES % (AUTO) 4 % (0-12); NEUTROPHILS # (AUTO) 18.2 10^3/uL (1.8-7.8); NEUTROPHILS % (AUTO) 85 % (42-75); PLATELET COUNT 133 10^3/uL (130-400); WHITE BLOOD COUNT 21.4 10^3/uL (4.3-11.0)
[2023-04-19 04:17] LABS: INR 1.4 (0.8-1.4); PROTHROMBIN TIME PATIENT 17.7 SEC (12.2-14.7)
[2023-04-19 04:24] LABS: ALBUMIN 1.8 GM/DL (3.2-4.5); BILIRUBIN,TOTAL 0.7 MG/DL (0.1-1.0); CALCIUM 8.1 MG/DL (8.5-10.1); CREATININE SERUM 1.27 MG/DL (0.60-1.30); MAGNESIUM 2.1 MG/DL (1.6-2.4); PHOSPHORUS 2.7 MG/DL (2.3-4.7); TOTAL PROTEIN 4.2 GM/DL (6.4-8.2)
[2023-04-19 04:31] LABS: VANCOMYCIN,TROUGH 22.4 UG/ML (10.0-20.0)
[2023-04-19] MEDS: KCL 20 MEQ TAB (K-DUR) PO SCH (04:49)
[2023-04-19] MEDS: POTASSIUM CL 10MEQ/50ML IVPB 50 ML IV SCH (04:49)
[2023-04-19] MEDS: MAGNESIUM 1 GM/100 ML IVPB 100 ML IV SCH (04:49)
[2023-04-19] MEDS: PIPERACILLIN SODIUM/TAZOBACTAM 4.5 GM in NS (IVPB) 100 ML IV SCH ×3 (09:30→23:47)
[2023-04-19] MEDS: SALIVA SUBSTITUTE 60 ML SPRAY(MOUTHKOTE) MM SCH ×2 (09:31→20:53)
[2023-04-19] MEDS: MICONAZOLE 2% POWDER (DESENEX AF) 90 GM TOP SCH ×2 (09:31→20:54)
[2023-04-19] MEDS: morphine ER 15 MG (MS CONTIN) TAB PO SCH ×2 (09:32→20:54)
[2023-04-19] MEDS: DOCUSATE SODIUM 100 MG (COLACE) CAP PO SCH ×2 (09:32→20:54)
[2023-04-19] MEDS: PANTOPRAZOLE 40 MG (PROTONIX) TAB PO SCH ×2 (09:32→20:53)
[2023-04-19] MEDS: FAMOTIDINE 20 MG (PEPCID) TABLET PO SCH (09:32)
[2023-04-19] MEDS: SENNOSIDES 8.6 MG (SENOKOT) TAB PO SCH ×2 (09:32→20:54)
[2023-04-19] MEDS: NOREPINEPHRINE 8 MG/250 ML 250 ML IV SCH (09:36)
[2023-04-19] MEDS: ENOXAPARIN 100 MG/1 ML (LOVENOX) SYR SQ SCH ×2 (09:37→20:54)
--- NOTE | 2023-04-19 10:10 | Progress Note - Hospitalist ---
Subjective HPI/CC On Admission Date Seen by Provider: Apr 19, 2023 Patient is an 87-year-old female who presented to the emergency department due to near syncope. She resides in a local shelter and staff reported to EMS that she was nodding off for several seconds while having a conversation which is abnormal for her. She was found to be quite hypotensive in the emergency department. She has no complaints to me nor did she for the em ergency department though there was mention of a sore on her bottom that has been present for quite a while. Labs revealed leukocytosis there was concern for sepsis so she was admitted for further evaluation. Throughout the night her blood pressures dropped further and she was transferred to the ICU for vasopressor support. This morning she is awake and alert but is still quite hypotensive. Subjective/Events-last exam Pt doing better today. She states her legs hurt but otherwise no complaints. Granddaughter was getting to the room when I was leaving and we discussed her improving labs. Current plan is to stay the course and see if she improved. Focused Exam Lactate Level 04/16/23 17:43: Lactic Acid Level 2.07*H 04/16/23 18:50: Lactic Acid Level 1.70 Objective Exam Vital Signs Vital Signs Date Time Temp Pulse Resp B/P (MAP) Pulse Ox O2 Delivery O2 Flow Rate FiO2 04/19/23 09:36 68 65/43 04/19/23 07:31 36.6 04/19/23 07:01 Nasal Cannula 2.00 04/19/23 07:01 100 04/19/23 06:00 13 Capillary Refill : Less Than 3 Seconds General Appearance: No Apparent Distress Respiratory: Lungs Clear Cardiovascular: No Murmur, Irregularly Irregular Gastrointestinal: Normal Bowel Sounds, Soft Neurologic/Psychiatric: Alert, Other (oriented to person and place) Results/Procedures Lab Laboratory Tests 04/19/23 03:45 Patient resulted labs reviewed. Imaging: Reviewed Imaging Report Assessment/Plan Assessment and Plan Assess & Plan/Chief Complaint Hypotension Poor prognosis Etiology remains unclear Continue broad spectrum abx Has sore on sacrum and under pannus- wound care consulted- get culture Does not appear to be on any antihypertensives or steroids Levophed, wean as able UOP improving today and Creatinine trending down Supratherapuetic INR A fib INR down to 2.2 with Vitamin K Trend INRs Cover with Lovenox for now while Coumadin held Pressure ulcers- POA Wound care consulted, appreciate recs Defer management to them Critical Care Critically Ill Patient RIZWAN VIDAL MD Apr 19, 2023 10:10
[2023-04-19] MEDS ORDERED: TROUGH ORDER-PHARMACY XX ONE ×2 (11:00)
[2023-04-19] MEDS: COLLAGENASE 30 GM (SANTYL) TUBE TP SCH ×2 (13:40→20:54)
--- NOTE | 2023-04-19 14:32 | Speech Therapy Progress Note ---
Therapy Progress Note Speech pathology received a clinical bedside swallowing evaluation and a chart review was completed. The clinician visited with the RN, who stated the patient displayed s/s of suspected aspiration with water. The patient's family was present, who stated the patient "always coughs with straws." The clinician attempted the evaluation, placing the patient upright in bed for safe swallowing. Once upright, the patient expectorated thick, yellow mucus into a tissue. The patient's lunch tray was present however the patient politely deferred. The clinician attempted P.O. trials of water and the patient continued polite refusal. ST to re-attempt as able and schedule allows. MADDIE HUIZAR Apr 19, 2023 14:32
--- NOTE | 2023-04-19 15:01 | Tele-ICU Progress Note ---
Subjective Date Seen by a Provider: Apr 19, 2023 Time Seen by a Provider: 15:00 Subjective/Events-last exam (Tele-ICU Physician , Progress Note ) Service provided via interactive audio and video telecommunications E-CARE system to a patient admitted to ICU bed in [facility]. Patient is seen today due to persistent need of ICU care Available chart/ vitals / labs / Images reviewed Video assessment done using teleICU camera, rest of exam as per RN Discussed with RN Events overnight : Afebrile hemodynamically stable Respiratory - I/O = even Drips: Pressors- levo Hospital course: (7.9) Admitted a 87y/o with septic shock UTI from NH, R fem line 04/17- on magdy 250 , 3L nc 04/18- levo 04/19 - levo A/P Shock ( sourse - ? PNA , wound) - off IVF severe edema +severe hypoalbuminemia) - on levo , can not wean off - will try vasoiprin gtt , CONSIDER midodrine too - cont empiric abx ( zosyn 04/16 h/o DVT , IVC filter in place -Coagulopathy INR 14 ( on coumadine - INR down to 2.2 with Vitamin K Hypoxia - 4L , cxr with atelectasis Hypoglycemia - resolved to follow Speach eval - high risk for aspiration Lines : R femoral 04/16 , (Central Line Necessity Reviewed) [place]: + OG: Nutrition: npo Analgesia: Anxiety/ delirium VTE Prophylaxis: inr pending Stress Ulcer Prophylaxis: na Plans in collaboration with bedside consultants and IM MDs. Discussed with RN to reach out if any questions or concerns A total of 31 minutes of critical care time was devoted to this patient today, required to treat and/or prevent further deterioration of critical care condition ( as above ) . I am remotely monitoring this patient from another state. I am unable to do the bedside exam, and history/physical and pertinent information is taken from other notes in the computer and bedside staff. . Sepsis Event Evaluation Height, Weight, BMI Height: 5'0.00" Weight: 123lbs. 0.0oz. [id number]; 39.95 BMI Method:Stated Focused Exam Lactate Level 04/16/23 17:43: Lactic Acid Level 2.07*H 04/16/23 18:50: Lactic Acid Level 1.70 Exam Exam Patient acknowledged, consented, and participated in this virtual visit which was conducted using real time audio/video Vital Signs Date Time Temp Pulse Resp B/P (MAP) Pulse Ox O2 Delivery O2 Flow Rate FiO2 04/19/23 13:00 72 15 105/62 (76) 100 Nasal Cannula 3.00 04/19/23 12:58 68 04/19/23 12:00 94 Nasal Cannula 4.00 04/19/23 12:00 89 15 104/65 (78) 85 Nasal Cannula 3.00 04/19/23 11:00 73 15 110/65 (80) 99 Nasal Cannula 3.00 04/19/23 10:00 80 25 103/67 (79) 87 Nasal Cannula 3.00 04/19/23 09:36 68 65/43 04/19/23 09:00 68 14 65/43 (50) 100 Nasal Cannula 3.00 04/19/23 08:00 92 Nasal Cannula 3.00 04/19/23 08:00 68 17 101/66 (78) 100 Nasal Cannula 3.00 04/19/23 07:31 36.6 04/19/23 07:30 36.4 04/19/23 07:01 Nasal Cannula 2.00 04/19/23 07:01 100 Nasal Cannula 3.00 04/19/23 07:00 67 17 108/59 (75) 100 Nasal Cannula 3.00 04/19/23 07:00 67 04/19/23 06:00 74 13 110/66 (83) 100 Nasal Cannula 3.00 04/19/23 05:45 69 16 108/90 (96) 100 Nasal Cannula 3.00 04/19/23 05:30 72 15 114/71 (88) 100 Nasal Cannula 3.00 04/19/23 05:15 74 13 114/74 (82) 71 Nasal Cannula 3.00 04/19/23 05:00 67 11 115/66 (82) 100 Nasal Cannula 3.00 04/19/23 04:06 93 Nasal Cannula 3.00 04/19/23 04:00 69 12 115/75 (88) 100 Nasal Cannula 3.00 04/19/23 03:15 66 11 114/70 (89) 100 Nasal Cannula 3.00 04/19/23 03:00 110/66 (88) 04/19/23 02:45 69 12 109/61 (84) 100 Nasal Cannula 3.00 04/19/23 02:30 105/62 (84) 04/19/23 02:15 73 26 111/69 (85) 100 Nasal Cannula 3.00 04/19/23 02:00 67 20 111/69 (83) 93 Nasal Cannula 3.00 04/19/23 01:00 105/63 (91) 04/19/23 00:45 72 13 104/62 (85) 98 Nasal Cannula 3.00 04/19/23 00:30 106/60 (82) 04/19/23 00:29 74 04/19/23 00:15 36.0 73 13 102/60 (81) 98 Nasal Cannula 3.00 04/19/23 00:00 108/62 (77) 04/18/23 23:59 94 Nasal Cannula 3.00 04/18/23 23:45 73 16 107/62 (79) 100 Nasal Cannula 3.00 04/18/23 23:30 72 13 103/68 (84) 100 Nasal Cannula 3.00 04/18/23 23:15 69 110/66 04/18/23 23:00 75 12 110/66 (81) 100 Nasal Cannula 3.00 04/18/23 22:52 Nasal Cannula 3.00 04/18/23 22:45 71 17 112/77 (89) 100 Nasal Cannula 3.00 04/18/23 22:30 79 14 117/69 (87) 100 Nasal Cannula 3.00 04/18/23 22:15 75 15 104/60 (79) 100 Nasal Cannula 3.00 04/18/23 22:00 73 26 106/63 (89) 100 Nasal Cannula 3.00 04/18/23 21:45 75 34 108/71 (86) 100 Nasal Cannula 3.00 04/18/23 21:30 72 22 106/65 (73) 100 Nasal Cannula 3.00 04/18/23 21:15 80 15 109/70 (85) 100 Nasal Cannula 3.00 04/18/23 21:00 78 16 121/72 (93) 100 Nasal Cannula 3.00 04/18/23 20:45 73 15 106/72 (89) 95 Nasal Cannula 3.00 04/18/23 20:30 79 17 100/74 (83) 100 Nasal Cannula 3.00 04/18/23 20:00 94 20 118/64 (82) 100 Nasal Cannula 3.00 04/18/23 20:00 92 Nasal Cannula 3.00 04/18/23 19:43 36.2 04/18/23 19:00 83 04/18/23 19:00 77 20 96/61 (73) 96 Nasal Cannula 3.00 04/18/23 18:00 78 16 113/68 (83) 100 Nasal Cannula 3.00 04/18/23 17:05 115/57 04/18/23 17:00 79 20 107/57 (74) 100 Nasal Cannula 3.00 04/18/23 16:00 83 24 107/68 (81) 100 Nasal Cannula 3.00 04/18/23 16:00 97 Nasal Cannula 3.00 04/18/23 15:45 36.0 04/18/23 15:13 115/69 04/18/23 15:00 77 20 112/59 (76) 100 Nasal Cannula 3.00 I & O 04/19/23 07:00 Intake Total 1301 ml Output Total 575 ml Balance 726 ml Height & Weight Height: 5'0.00" Weight: 123lbs. 0.0oz. [id number]; 39.95 BMI Method:Stated General Appearance: No Apparent Distress HEENT: PERRL/EOMI, Normal ENT Inspection, Pharynx Normal Neck: Full Range of Motion, Supple Respiratory: Lungs Clear Cardiovascular: No Murmur, Irregularly Irregular Capillary Refill: Less Than 3 Seconds Gastrointestinal: normal bowel sounds, non tender, soft, other (incontinence of bowel) Extremity: Pedal Edema Neurologic/Psychiatric: Alert, Other (oriented to person and place) Skin: Normal Color, Warm/Dry Results Lab Laboratory Tests 04/18/23 03:20 04/19/23 03:45 Assessment/Plan Assessment/Plan ` JAYDON MORENO MD Apr 19, 2023 15:01
[2023-04-19] MEDS: VASOPRESSIN IV SCH (16:13)
[2023-04-19] MEDS: NS IV SCH (16:13)
[2023-04-19] MEDS: HYDROcodone/APAP 5 MG/325 MG (LORTAB) TAB PO PRN ×2 (17:13→17:28)
[2023-04-19] MEDS: TOLTERODINE LA 2 MG (DETROL LA) CAP PO SCH (20:53)
[2023-04-20] MEDS: NOREPINEPHRINE 8 MG/250 ML 250 ML IV SCH ×2 (00:35→21:05)
[2023-04-20] MEDS: NS IV SCH ×3 (02:37→23:20)
[2023-04-20] MEDS: VASOPRESSIN IV SCH ×3 (02:37→23:20)
[2023-04-20 03:33] LABS: BASOPHILS % (AUTO) 0 % (0-10); EOSINOPHILS # (AUTO) 0.2 10^3/uL (0.0-0.3); EOSINOPHILS % (AUTO) 2 % (0-10); HEMATOCRIT 35 % (35-52); HEMOGLOBIN 10.7 g/dL (11.5-16.0); LYMPHOCYTES # (AUTO) 0.8 10^3/uL (1.0-4.0); LYMPHOCYTES % (AUTO) 7 % (12-44); MEAN CORPUSCULAR HEMOGLOBIN 33 pg (25-34); MEAN CORPUSCULAR HGB CONC 31 g/dL (32-36); MEAN CORPUSCULAR VOLUME 106 fL (80-99); MONOCYTES # (AUTO) 0.7 10^3/uL (0.0-1.0); MONOCYTES % (AUTO) 6 % (0-12); NEUTROPHILS # (AUTO) 10.1 10^3/uL (1.8-7.8); NEUTROPHILS % (AUTO) 85 % (42-75); PLATELET COUNT 105 10^3/uL (130-400)
[2023-04-20 03:44] LABS: INR 1.4 (0.8-1.4); PROTHROMBIN TIME PATIENT 17.3 SEC (12.2-14.7)
[2023-04-20 03:45] LABS: ALBUMIN 1.7 GM/DL (3.2-4.5); POTASSIUM 3.9 MMOL/L (3.6-5.0)
[2023-04-20 03:47] LABS: CALCIUM 8.2 MG/DL (8.5-10.1)
[2023-04-20 03:48] LABS: TOTAL PROTEIN 4.2 GM/DL (6.4-8.2)
[2023-04-20 03:49] LABS: BILIRUBIN,TOTAL 0.7 MG/DL (0.1-1.0)
[2023-04-20 03:51] LABS: CREATININE SERUM 1.04 MG/DL (0.60-1.30); PHOSPHORUS 2.8 MG/DL (2.3-4.7)
[2023-04-20 03:54] LABS: MAGNESIUM 2.1 MG/DL (1.6-2.4)
[2023-04-20] MEDS: PHENYLEPHRINE DRIP 250 ML IV SCH ×2 (04:16→18:42)
[2023-04-20] MEDS: POTASSIUM CL 10MEQ/50ML IVPB 50 ML IV SCH ×3 (04:18→06:06)
[2023-04-20] MEDS: KCL 20 MEQ TAB (K-DUR) PO SCH (04:19)
[2023-04-20] MEDS: MAGNESIUM 1 GM/100 ML IVPB 100 ML IV SCH (04:19)
[2023-04-20] MEDS ORDERED: VANCOMYCIN 750 MG/NS 250 ML IVPB IV SCH ×2 (09:00)
[2023-04-20] MEDS: ENOXAPARIN 100 MG/1 ML (LOVENOX) SYR SQ SCH ×2 (09:12→20:32)
[2023-04-20] MEDS: MICONAZOLE 2% POWDER (DESENEX AF) 90 GM TOP SCH ×2 (09:13→20:32)
[2023-04-20] MEDS: PIPERACILLIN SODIUM/TAZOBACTAM 4.5 GM in NS (IVPB) 100 ML IV SCH ×3 (09:13→23:20)
[2023-04-20] MEDS: COLLAGENASE 30 GM (SANTYL) TUBE TP SCH ×2 (09:13→09:25)
[2023-04-20] MEDS: SALIVA SUBSTITUTE 60 ML SPRAY(MOUTHKOTE) MM SCH ×2 (09:14→20:31)
[2023-04-20] MEDS: HYPOCHLOROUS ACID/NaCl (VASHE) 250 ML IR SCH (09:25)
[2023-04-20] MEDS: DOCUSATE SODIUM 100 MG (COLACE) CAP PO SCH ×2 (09:35→20:20)
[2023-04-20] MEDS: SENNOSIDES 8.6 MG (SENOKOT) TAB PO SCH ×2 (09:35→20:21)
[2023-04-20] MEDS: morphine ER 15 MG (MS CONTIN) TAB PO SCH (09:35)
[2023-04-20] MEDS: PANTOPRAZOLE 40 MG (PROTONIX) TAB PO SCH ×2 (09:35→20:21)
[2023-04-20] MEDS: FAMOTIDINE 20 MG (PEPCID) TABLET PO SCH (09:35)
--- NOTE | 2023-04-20 09:59 | ST Dysphagia Evaluation ---
Speech Evaluation-General Medical Diagnosis Hypotension Onset Date: Apr 16, 2023 Therapy Diagnosis Therapy Diagnosis: Oropharyngeal Dysphagia Precautions Precautions: Fall, Pressure Ulcer, Aspiration Precautions/Isolations: Aspiration, Fall Prevention, Standard Precautions, Pressure Ulcer Referral Referring Physician: Dr. Viramontes Reason for Referral: Evaluation/Treatment Medical History Pertinent Medical History: Arthritis, COPD, Fractures, GERD, HTN, Renal Insufficiency, Thrombosis Reviewed History: Yes Speech PLF/Current-Dysphagia Prior Level of Function Per patient's family, the patient consumed Butter Pecan Ensure and soft consistencies at home. The patient's grandson stated the patient frequently "coughs and chokes with straws." The patient does not provide additional prior level of function information to the clinician. Subjective The patient was lying in bed, sleeping, upon entrance to her room by the clinician. The patient has a granddaughter at bedside, who remains for the evaluation. With maximum clinician verbal prompting and encouragement, the patient wakes and makes eye contact with the clinician when she is spoken to. The patient is elevated in bed for a safe swallowing position. Per patient's RN, the patient displays s/s of suspected aspiration with swallowing thin liquids. The RN's observation correlates to the grandson's report stating the patient "coughs and chokes with straws." Cognitive Status The patient does not respond or answer any questions asked by the clinician. The patient does make consistent eye contact when the clinician speaks to her. Oral Motor Skills Dentition: Edentalous Current Food Consistancy: Regular, Thin Liquids Ability to Follow Directions: Poor Oral Expression Ability: Severe Impairment Face Facial Symmetry: Symmetrical Oral-Facial Assessment Oral-Facial Dentition: Normal Labial Seal Description: Weak Volitional Dry Swallow: No Voluntary Cough: No Can Clear Throat Volitionally: No Productive Cough: No Productive Throat Clear: No Dysphagia Evaluation Consistencies Presented: Thin Liquid (Via teaspoon.), Pureed (Via teaspoon.) Oral Phase: Anterior Spillage, Absent Oral Transit The patient required maximum verbal cues to remove the water and puree from the teaspoon. Following, anterior spillage was noted with maximum cues from the clinician to complete posterior transfer of the material and elicitation of a pharyngeal swallow. Due to lack of posterior transfer with puree, the material was removed from the oral cavity with a finger sweep and teaspoon. The patient requires maximum verbal cueing to complete posterior transfer of bolus material. Regardless of posterior transfer, the patient was unable to elicit a pharyngeal swallow. Gentle laryngeal massage was completed and maximum verbal cueing and encouragement. The patient remained with the material in the oral cavity pending physical removal by the clinician (applesavivian). With the one completed swallow of thin liquids via teaspoon, a rigorous cough was immediately displayed. Dietary Recommendations: NPO Liquid Recommendations: NPO Recommendations: - N.P.O. - Frequent and excellent oral care to reduce the transfer of oral bacteria to the lungs should aspiration of secretions occur. - Speech pathology to continue daily assessments of the oropharyngeal swallowing function. The results and recommendations were shared with the patient and the patient's granddaughter immediately following completion. The patient's granddaughter asked the clinician questions regarding supplemental nutrition pending safe P.O. intake. The clinician politely deferred the patient's questions to the treating physician and stated she would provide the questions to the patient's RN. The patient's granddaughter's questions were answered within the clinician's scope of practice and she verbalized comprehension of the discussion. Speech Short Term Goals Short Term Goals Short Term Goals 1. The patient, staff, and family members will demonstrate safe swallowing precautions with 90% accuracy, independently. Time Frame-STG: Five Days. Speech Usp Goals Usp Goals 1. The patient will tolerate the least restrictive diet consistency without s/s of suspected aspiration. Time Frame: One Week. Speech-Plan Treatment Plan Speech Therapy Treatment Plan: Continue Plan of Care Treatment Duration: Apr 28, 2023 Frequency: 3 times per week Estimated Hrs Per Day: .25 hour per day Rehab Potential: Poor Pt/Family Agrees to Plan: Yes Safety Risks/Education Teaching Recipient: Patient, Family Teaching Methods: Discussion Response to Teaching: Reinforcement Needed Education Topics Provided: Results, Recommendations, Aspiration Risks Time Speech Therapy Time In: 08:05 Speech Therapy Time Out: 08:27 DATE: Apr 20, 2023 Total Billed Time: 22 Billed Treatment Time 1BETI DYST LOY, ELIZABETH ST Apr 20, 2023 09:59
--- NOTE | 2023-04-20 10:08 | Diagnostic Imaging Report ---
CLINICAL INDICATION: Patient with change in lung sounds. Possible aspiration. EXAM: Portable chest x-ray upright view. COMPARISON: Chest x-ray dated 04/18/2023. FINDINGS: There are stable small to moderate-sized bilateral pleural effusions again noted. There is slight progression of patchy airspace opacities involving the right lung base and right midlung field and stable left lung base atelectasis versus infiltrate. Cardiac silhouette is more obscured, but appears enlarged. Pulmonary vasculature is mildly prominent centrally. IMPRESSION: 1: There are stable bilateral pleural effusions with progression of right basilar atelectasis versus infiltrate. There is stable left basilar atelectasis versus infiltrate. 2: Stable cardiomegaly with mild pulmonary vascular prominence centrally. Dictated by: Dictated on workstation # [id number]
[2023-04-20] MEDS: MUPIROCIN 2% OINT 22 GM (BACTROBAN) TUBE NSEACH SCH ×2 (10:31→20:32)
[2023-04-20 10:42] LABS: ABG PCO2 54 MMHG (35-45); ABG PO2 133 MMHG (79-93)
[2023-04-20 10:43] LABS: ABG OXYGEN SATURATION 100 % (94-100); ABG TCO2 27.3 MMOL/L (21.0-31.0)
--- NOTE | 2023-04-20 10:47 | Tele-ICU Progress Note ---
Subjective Date Seen by a Provider: Apr 20, 2023 Time Seen by a Provider: 10:47 Subjective/Events-last exam (Tele-ICU Physician , Progress Note ) Service provided via interactive audio and video telecommunications E-CARE system to a patient admitted to ICU bed in [facility]. Patient is seen today due to persistent need of ICU care Available chart/ vitals / labs / Images reviewed Video assessment done using teleICU camera, rest of exam as per RN Discussed with RN Events overnight : Afebrile hemodynamically stable Respiratory - 4 l I/O = even Drips: Pressors- levo Hospital course: (7.9) Admitted a 87y/o with septic shock UTI from [place], R fem line 04/17- on magdy 250 , 3L nc 04/18- levo 04/19 - levo , vaso added 04/20- levo 0.05, vaso , lethargy A/P Shock septic - off IVF severe edema +severe hypoalbuminemia) - on levo , can not wean off -oadded vasopressin gtt , CONSIDER midodrine too - but she is too lethargic to take po now - cont empiric abx ( zosyn 04/16 lethargy - will check ABG h/o DVT , IVC filter in place -Coagulopathy INR 14 ( on coumadine - INR down to 1.4 with Vitamin K - on lovenox Hypoxia - 4L , cxr with atelectasis and worsening effusion Wound + MRSA prelim - on vanco , zosyn - await final cx Thrombocytropenia - new on lovenox - will follow ( no HIPA w/up now Hypoglycemia - resolved to follow Speach eval - high risk for aspiration - NPO now - might need NG Lines : R femoral 04/16 , (Central Line Necessity Reviewed) [place]: + OG: Nutrition: npo Analgesia: Anxiety/ delirium VTE Prophylaxis: lovenox Stress Ulcer Prophylaxis: na Plans in collaboration with bedside consultants and IM MDs. Discussed with RN to reach out if any questions or concerns A total of 31 minutes of critical care time was devoted to this patient today, required to treat and/or prevent further deterioration of critical care condition ( as above ) . I am remotely monitoring this patient from another state. I am unable to do the bedside exam, and history/physical and pertinent information is taken from other notes in the computer and bedside staff. . Sepsis Event Evaluation Height, Weight, BMI Height: 5'0.00" Weight: 123lbs. 0.0oz. [id number]; 39.74 BMI Method:Stated Exam Exam Patient acknowledged, consented, and participated in this virtual visit which was conducted using real time audio/video Vital Signs Date Time Temp Pulse Resp B/P (MAP) Pulse Ox O2 Delivery O2 Flow Rate FiO2 04/20/23 10:00 62 21 91/46 (61) 100 Nasal Cannula 4.00 04/20/23 09:00 69 50 99/62 (74) 100 Nasal Cannula 4.00 04/20/23 08:00 61 51 94/61 (72) 100 04/20/23 07:56 36.8 04/20/23 07:54 71 04/20/23 07:00 67 17 99/61 (74) 100 04/20/23 06:50 Nasal Cannula 3.00 04/20/23 06:49 100 Nasal Cannula 4.00 04/20/23 06:00 62 17 104/62 (81) 100 04/20/23 05:45 94/65 (77) 04/20/23 05:30 64 18 93/66 (76) 100 Nasal Cannula 4.00 04/20/23 05:15 65 18 103/60 (86) 100 Nasal Cannula 4.00 04/20/23 05:00 67 14 93/54 (70) 100 Nasal Cannula 4.00 04/20/23 04:45 83/59 (66) 04/20/23 04:30 65 17 93/64 (69) 100 Nasal Cannula 4.00 04/20/23 04:15 72 12 106/68 (84) 100 Nasal Cannula 4.00 04/20/23 04:02 92 Nasal Cannula 4.00 04/20/23 04:00 36.0 71 24 100/59 (78) 90 Nasal Cannula 4.00 04/20/23 03:45 65 40 91/70 (78) 100 Nasal Cannula 4.00 04/20/23 03:30 64 12 102/60 (78) 99 Nasal Cannula 4.00 04/20/23 03:15 106/69 (78) 04/20/23 03:00 73 19 98/61 (69) 100 Nasal Cannula 4.00 04/20/23 02:45 71 11 73/58 (60) 100 Nasal Cannula 4.00 04/20/23 02:37 75 100/65 04/20/23 02:30 64 12 100/65 (87) 93 Nasal Cannula 4.00 04/20/23 02:15 78 24 104/69 (79) 90 Nasal Cannula 4.00 04/20/23 02:00 68 16 105/60 (83) 94 Nasal Cannula 4.00 04/20/23 01:45 66 36 108/73 (87) 96 Nasal Cannula 4.00 04/20/23 01:30 70 15 106/59 (76) 93 Nasal Cannula 4.00 04/20/23 01:15 64 12 86/79 (84) 93 Nasal Cannula 4.00 04/20/23 01:00 70 14 99/74 (79) 94 Nasal Cannula 4.00 04/20/23 01:00 70 04/20/23 00:45 101/55 (85) 04/20/23 00:35 65 101/76 04/20/23 00:30 65 12 101/76 (90) 94 Nasal Cannula 4.00 04/20/23 00:15 71 16 104/63 (77) 76 Nasal Cannula 4.00 04/20/23 00:00 67 21 105/70 (86) 93 Nasal Cannula 4.00 04/19/23 23:59 92 Nasal Cannula 4.00 04/19/23 23:45 64 40 107/56 (75) 91 Nasal Cannula 4.00 04/19/23 23:30 64 14 101/67 (90) 87 Nasal Cannula 4.00 04/19/23 23:00 69 28 91/64 (73) 96 Nasal Cannula 4.00 04/19/23 22:45 36.2 66 17 98/89 (95) 93 Nasal Cannula 4.00 04/19/23 22:39 65 17 108/64 (87) 93 Nasal Cannula 4.00 04/19/23 22:30 67 12 78/34 (42) 81 Nasal Cannula 4.00 04/19/23 22:15 73 52 85/58 (73) 84 Nasal Cannula 4.00 04/19/23 22:00 61 18 92/56 (68) 100 Nasal Cannula 4.00 04/19/23 21:45 71 27 91/85 (87) 94 Nasal Cannula 4.00 04/19/23 21:30 65 25 92/50 (72) 99 Nasal Cannula 4.00 04/19/23 21:15 66 21 69/56 (64) 97 Nasal Cannula 4.00 04/19/23 21:00 84 23 96/64 (75) 91 Nasal Cannula 4.00 04/19/23 20:15 74 23 99/61 (76) 99 Nasal Cannula 4.00 04/19/23 20:00 93 Nasal Cannula 4.00 04/19/23 20:00 67 10 96/68 (74) 100 Nasal Cannula 4.00 04/19/23 19:45 70 19 100/69 (79) 96 Nasal Cannula 4.00 04/19/23 19:30 66 13 96/65 (80) Nasal Cannula 4.00 04/19/23 19:15 36.1 86/61 (76) 04/19/23 19:00 70 04/19/23 19:00 65 12 103/75 (86) 95 Nasal Cannula 4.00 04/19/23 18:00 68 14 82/75 (81) 88 Nasal Cannula 4.00 04/19/23 17:00 78 18 129/63 (85) 85 Nasal Cannula 3.00 04/19/23 16:13 75 04/19/23 16:00 69 15 122/74 (90) 99 Nasal Cannula 3.00 04/19/23 16:00 94 Nasal Cannula 4.00 04/19/23 15:00 84 15 103/60 (74) 87 Nasal Cannula 3.00 04/19/23 14:00 74 15 94/56 (69) 99 Nasal Cannula 3.00 04/19/23 13:00 72 15 105/62 (76) 100 Nasal Cannula 3.00 04/19/23 12:58 68 04/19/23 12:00 94 Nasal Cannula 4.00 04/19/23 12:00 89 15 104/65 (78) 85 Nasal Cannula 3.00 04/19/23 11:00 73 15 110/65 (80) 99 Nasal Cannula 3.00 I & O 04/20/23 07:00 Intake Total 700 ml Output Total 725 ml Balance -25 ml Height & Weight Height: 5'0.00" Weight: 123lbs. 0.0oz. 55.766187fa; 39.74 BMI Method:Stated General Appearance: No Apparent Distress, WD/WN HEENT: PERRL/EOMI, Normal ENT Inspection, Pharynx Normal Neck: Full Range of Motion, Supple Respiratory: Chest Non Tender, Lungs Clear, Normal Breath Sounds, No Accessory Muscle Use, No Respiratory Distress Cardiovascular: Regular Rate, Rhythm, No Murmur, Normal Peripheral Pulses Capillary Refill: Less Than 3 Seconds Gastrointestinal: normal bowel sounds, non tender, soft, other (incontinence of bowel) Extremity: Normal Capillary Refill, Normal Inspection, Non Tender, No Calf Tenderness Neurologic/Psychiatric: Alert, Oriented x3, No Motor/Sensory Deficits, Normal Mood/Affect, track supervisor II-XII Norm as Tested Skin: Normal Color, Warm/Dry Results Lab Laboratory Tests 04/19/23 03:45 04/20/23 03:25 Assessment/Plan Assessment/Plan 1 JAYDON MORENO MD Apr 20, 2023 10:47
[2023-04-20] MEDS: HYDROcodone/APAP 5 MG/325 MG (LORTAB) TAB PO PRN (11:50)
[2023-04-20 12:00] VITALS: BP 100/65
--- NOTE | 2023-04-20 12:05 | Progress Note - Hospitalist ---
Subjective HPI/CC On Admission Date Seen by Provider: Apr 20, 2023 Patient is an 87-year-old female who presented to the emergency department due to near syncope. She resides in a local correction and staff reported to EMS that she was nodding off for several seconds while having a conversation which is abnormal for her. She was found to be quite hypotensive in the emergency department. She has no complaints to me nor did she for the em ergency department though there was mention of a sore on her bottom that has been present for quite a while. Labs revealed leukocytosis there was concern for sepsis so she was admitted for further evaluation. Throughout the night her blood pressures dropped further and she was transferred to the ICU for vasopressor support. This morning she is awake and alert but is still quite hypotensive. Subjective/Events-last exam Pt reports being ok but more sleepy than yesterday. granddaughter at bedside. We discussed her nutrition and currently status. Daughter from [place] en route. Objective Exam Vital Signs Vital Signs Date Time Temp Pulse Resp B/P (MAP) Pulse Ox O2 Delivery O2 Flow Rate FiO2 04/20/23 11:00 67 21 90/66 (74) 94 Nasal Cannula 4.00 04/20/23 07:56 36.8 Capillary Refill : Less Than 3 Seconds General Appearance: No Apparent Distress Cardiovascular: Regular Rate, Rhythm, No Murmur Gastrointestinal: Normal Bowel Sounds, Soft Neurologic/Psychiatric: Alert, Oriented x3 Results/Procedures Lab Laboratory Tests 04/20/23 03:25 Patient resulted labs reviewed. Imaging: Reviewed Imaging Report Assessment/Plan Assessment and Plan Assess & Plan/Chief Complaint Hypotension Poor prognosis Etiology remains unclear- likely her wound Continue broad spectrum abx Has sore on sacrum and under pannus- wound care consulted MRSA in nares and wound- continue vanc Levophed and vasopressin- wean as able UOP better yesterday- creatinein continue to improve Supratherapuetic INR A fib INR now subtherapeutic Trend INRs Cover with Lovenox for now while Coumadin held Pressure ulcers- POA Wound care consulted, appreciate recs Defer management to them Dysphagia RN noticed coughing with eating yesterday and concern for aspiration Speech consulted, recommends NPO due to lethargy Consider addressing nutrition tomorrow- family asking about TPN or NGT DVT ppx; Lovenox Critical Care Critically Ill Patient RIZWAN VIDAL MD Apr 20, 2023 12:05
[2023-04-20] MEDS ORDERED: morphine INJ 10 MG/ML 1ML (SYR OR VIAL) IVP PRN (13:15)
[2023-04-20 17:17] LABS: ABG BASE EXCESS 0.3 MMOL/L (-2.5-2.5); ABG OXYGEN SATURATION 69 % (94-100); ABG PCO2 50 MMHG (35-45); ABG TCO2 27.3 MMOL/L (21.0-31.0)
[2023-04-20 17:22] LABS: ABG PH 7.33 (7.37-7.43); ABG PO2 36 MMHG (79-93)
[2023-04-20 17:23] LABS: ALLENS TEST YES-POS; INSPIRED O2 35%; PATIENT TEMP 97.1; VENTILATOR NO
[2023-04-20 18:09] VITALS: BP 100/65
[2023-04-20] MEDS ORDERED: ALBUMIN 25% 25 GM/100 ML 100 ML IV ONE (18:45)
[2023-04-20] MEDS: TOLTERODINE LA 2 MG (DETROL LA) CAP PO SCH (20:20)
[2023-04-20] MEDS ORDERED: morphine ER 15 MG (MS CONTIN) TAB PO SCH (21:00)
[2023-04-21] MEDS: morphine INJ 4 MG/ML 1 ML (VIAL/SYRINGE) IV PRN ×4 (01:06→23:34)
[2023-04-21 03:38] LABS: BASOPHILS % (AUTO) 0 % (0-10); EOSINOPHILS % (AUTO) 0 % (0-10); HEMATOCRIT 33 % (35-52); LYMPHOCYTES # (AUTO) 0.9 10^3/uL (1.0-4.0); LYMPHOCYTES % (AUTO) 9 % (12-44); MEAN CORPUSCULAR HEMOGLOBIN 33 pg (25-34); MEAN CORPUSCULAR HGB CONC 31 g/dL (32-36); MEAN CORPUSCULAR VOLUME 106 fL (80-99); MONOCYTES # (AUTO) 0.6 10^3/uL (0.0-1.0); MONOCYTES % (AUTO) 6 % (0-12); NEUTROPHILS # (AUTO) 8.4 10^3/uL (1.8-7.8); NEUTROPHILS % (AUTO) 84 % (42-75); PLATELET COUNT 88 10^3/uL (130-400)
[2023-04-21 03:46] LABS: ALBUMIN 2.2 GM/DL (3.2-4.5); POTASSIUM 3.8 MMOL/L (3.6-5.0)
[2023-04-21 03:47] LABS: CALCIUM 8.3 MG/DL (8.5-10.1)
[2023-04-21 03:48] LABS: TOTAL PROTEIN 4.5 GM/DL (6.4-8.2)
[2023-04-21 03:50] LABS: BILIRUBIN,TOTAL 0.8 MG/DL (0.1-1.0)
[2023-04-21 03:52] LABS: CREATININE SERUM 1.01 MG/DL (0.60-1.30)
[2023-04-21 03:55] LABS: MAGNESIUM 2.2 MG/DL (1.6-2.4)
[2023-04-21] MEDS: MAGNESIUM 1 GM/100 ML IVPB 100 ML IV SCH (05:17)
[2023-04-21] MEDS: POTASSIUM CL 10MEQ/50ML IVPB 50 ML IV SCH ×2 (05:17→06:05)
[2023-04-21] MEDS: KCL 20 MEQ TAB (K-DUR) PO SCH (05:17)
[2023-04-21] MEDS ORDERED: TROUGH ORDER-PHARMACY XX ONE (08:00)
[2023-04-21] MEDS: DOCUSATE SODIUM 100 MG (COLACE) CAP PO SCH ×2 (09:19→20:09)
[2023-04-21] MEDS: PHENYLEPHRINE DRIP 250 ML IV SCH ×2 (09:19→20:15)
[2023-04-21] MEDS: SENNOSIDES 8.6 MG (SENOKOT) TAB PO SCH ×2 (09:23→20:09)
[2023-04-21] MEDS: MUPIROCIN 2% OINT 22 GM (BACTROBAN) TUBE NSEACH SCH ×2 (10:43→20:08)
[2023-04-21] MEDS: ENOXAPARIN 100 MG/1 ML (LOVENOX) SYR SQ SCH (10:43)
[2023-04-21] MEDS: PANTOPRAZOLE 40 MG (PROTONIX) TAB PO SCH ×2 (10:43→20:07)
[2023-04-21] MEDS: MICONAZOLE 2% POWDER (DESENEX AF) 90 GM TOP SCH ×2 (10:44→20:08)
[2023-04-21] MEDS: SALIVA SUBSTITUTE 60 ML SPRAY(MOUTHKOTE) MM SCH ×2 (10:44→20:08)
[2023-04-21] MEDS: FAMOTIDINE 20 MG (PEPCID) TABLET PO SCH (10:44)
[2023-04-21] MEDS: COLLAGENASE 30 GM (SANTYL) TUBE TP SCH ×2 (10:44→20:08)
[2023-04-21] MEDS ORDERED: ALBUMIN 25% 25 GM/100 ML 100 ML IV ONE (10:45)
[2023-04-21] MEDS ORDERED: FUROSEMIDE 40 MG/4 ML INJ (LASIX) IVP ONE (10:45)
--- NOTE | 2023-04-21 11:20 | Progress Note - Hospitalist ---
Subjective HPI/CC On Admission Date Seen by Provider: Apr 21, 2023 Patient is an 87-year-old female who presented to the emergency department due to near syncope. She resides in a local shelter and staff reported to EMS that she was nodding off for several seconds while having a conversation which is abnormal for her. She was found to be quite hypotensive in the emergency department. She has no complaints to me nor did she for the em ergency department though there was mention of a sore on her bottom that has been present for quite a while. Labs revealed leukocytosis there was concern for sepsis so she was admitted for further evaluation. Throughout the night her blood pressures dropped further and she was transferred to the ICU for vasopressor support. This morning she is awake and alert but is still quite hypotensive. Subjective/Events-last exam Pt off BiPAP. BP improved today. Discussed with family (daughter, sister, grandchildren) regarding her current status and slow improvement. Discussed that she is not yet out of the [place] but slowly showing signs of encouragement. Speech to see today and evaluate for oral intake. Objective Exam Vital Signs Vital Signs Date Time Temp Pulse Resp B/P (MAP) Pulse Ox O2 Delivery O2 Flow Rate FiO2 04/21/23 15:00 80 11 107/63 (76) 95 Nasal Cannula 1.00 04/21/23 12:01 36.4 Capillary Refill : Less Than 3 Seconds General Appearance: No Apparent Distress, WD/WN Respiratory: Lungs Clear, No Respiratory Distress Cardiovascular: Regular Rate, Rhythm, No Murmur Gastrointestinal: Normal Bowel Sounds, Soft Neurologic/Psychiatric: Alert, Oriented x3 Results/Procedures Lab Laboratory Tests 04/21/23 03:25 Patient resulted labs reviewed. Imaging: Reviewed Imaging Report Assessment/Plan Assessment and Plan Assess & Plan/Chief Complaint Septic Shock- POA Poor prognosis Etiology remains unclear- likely her wound Continue broad spectrum abx Has sore on sacrum and under pannus- wound care consulted MRSA in nares and wound- continue vanc Levophed and vasopressin- wean as able- BP improved today UOP better yesterday- creatinine continue to improve Supratherapuetic INR A fib Thrombocytopenia INR now subtherapeutic Trend INRs On Lovenox but now thrombocytopenic Consult heme/onc Acute on chronic respiratory failure Was on BiPAP yesterday Now off lasix and albumin today Pressure ulcers- POA Wound care consulted, appreciate recs Defer management to them Dysphagia RN noticed coughing with eating yesterday and concern for aspiration Speech consulted, recommends NPO due to lethargy Hopeful to eat today but speech eval pending DVT ppx; Lovenox for now given Critical Care Critically Ill Patient RIZWAN VIDAL MD Apr 21, 2023 11:20
[2023-04-21] MEDS: PIPERACILLIN SODIUM/TAZOBACTAM 4.5 GM in NS (IVPB) 100 ML IV SCH ×2 (11:59→20:08)
--- NOTE | 2023-04-21 12:53 | Speech Therapy Daily Note ---
Speech Daily Progress Note Subjective Date Seen by Provider: Apr 21, 2023 Time Seen by Provider: 09:10 The patient was resting in bed, awake and alert, upon entrance to her room by the clinician. The patient made eye contact when her name was spoken and was agreeable to participation in the skilled speech pathology treatment session. The patient's head of bed was elevated for safe swallowing. The patient continued to request the bed be reclined however safe swallowing precautions were repeated. Objective The patient consumed teaspoons of thin liquid, teaspoons of mildly thick liquid, cup sips of mildly thick liquids, straw drinks of mildly thick liquids, and half teaspoons of puree. The patient attempted to refuse additional trials following two teaspoons of thin liquid however continued with verbal encouragement. The patient displayed an immediate wet vocal quality and subtle throat clearing following teaspoon attempts of thin liquid. No overt s/s of suspected aspiration were demonstrated with the additional P.O. trials provided. Recommendations: - PU4 with mildly thick liquids, as tolerated. - Fully upright and alert for P.O. intake. - Small, single bites and sips, only. - Full, 1:1 feeding and supervision. - Crush medication and place in puree for administration. - Cease P.O. intake during periods of fatigue. - Monitor for s/s of suspected aspiration with P.O. intake. If demonstrated, place the patient N.P.O. and contact speech pathology. - Speech pathology will continue to monitor the patient's diet tolerance and safety. The results and recommendations were provided to the patient and the patient's granddaughter immediately following the session. The RN was provided the recommendations by the clinician. The patient is concerned the patient will not be able to meet nutritional needs by P.O. intake, only. Supplements may be appropriate to increase nutrition throughout limited P.O. Assessment Assessment Current Status: Fair Progress Treatment Plan Continue Plan of Care Speech Short Term Goals Short Term Goals Short Term Goals 1. The patient, staff, and family members will demonstrate safe swallowing precautions with 90% accuracy, independently. Time Frame-STG: Five Days. Speech Tray Setter Goals Tray Setter Goals 1. The patient will tolerate the least restrictive diet consistency without s/s of suspected aspiration. Time Frame: One Week. Speech-Plan Treatment Plan Speech Therapy Treatment Plan: Continue Plan of Care Treatment Duration: Apr 28, 2023 Frequency: 3 times per week Estimated Hrs Per Day: .25 hour per day Rehab Potential: Poor Safety Risks/Education Teaching Recipient: Patient, Family Teaching Methods: Discussion Response to Teaching: Unable to Comprehend Education Topics Provided: Results, Recommendations, Plan of Care Time Speech Therapy Time In: 09:10 Speech Therapy Time Out: 09:30 DATE: Apr 21, 2023 Total Billed Time: 20 Billed Treatment Time 1, RAZ MADDIE HUIZAR Apr 21, 2023 12:53
[2023-04-21] MEDS: NS IV SCH ×2 (14:30→20:06)
[2023-04-21] MEDS: VASOPRESSIN IV SCH ×2 (14:30→20:06)
[2023-04-21] MEDS ORDERED: FONDAPARINUX 10 MG/0.8 ML SQ NR (16:15)
[2023-04-21] MEDS: warFARin 1 MG (COUMADIN) TAB PO SCH (18:05)
[2023-04-21] MEDS: TOLTERODINE LA 2 MG (DETROL LA) CAP PO SCH (20:07)
[2023-04-21] MEDS: NOREPINEPHRINE 8 MG/250 ML 250 ML IV SCH (22:25)
[2023-04-22] MEDS: PIPERACILLIN SODIUM/TAZOBACTAM 4.5 GM in NS (IVPB) 100 ML IV SCH ×3 (04:40→20:49)
[2023-04-22 04:54] LABS: BASOPHILS % (AUTO) 0 % (0-10); EOSINOPHILS % (AUTO) 1 % (0-10); HEMATOCRIT 30 % (35-52); HEMOGLOBIN 9.3 g/dL (11.5-16.0); LYMPHOCYTES # (AUTO) 1.1 10^3/uL (1.0-4.0); LYMPHOCYTES % (AUTO) 14 % (12-44); MEAN CORPUSCULAR HEMOGLOBIN 33 pg (25-34); MEAN CORPUSCULAR HGB CONC 31 g/dL (32-36); MEAN CORPUSCULAR VOLUME 107 fL (80-99); MEAN PLATELET VOLUME 12.3 fL (9.0-12.2); MONOCYTES # (AUTO) 0.6 10^3/uL (0.0-1.0); MONOCYTES % (AUTO) 7 % (0-12); NEUTROPHILS # (AUTO) 6.1 10^3/uL (1.8-7.8); NEUTROPHILS % (AUTO) 78 % (42-75); PLATELET COUNT 66 10^3/uL (130-400); WHITE BLOOD COUNT 7.8 10^3/uL (4.3-11.0)
[2023-04-22 05:09] LABS: ALBUMIN 2.4 GM/DL (3.2-4.5); POTASSIUM 3.8 MMOL/L (3.6-5.0)
[2023-04-22 05:11] LABS: CALCIUM 8.4 MG/DL (8.5-10.1)
[2023-04-22 05:12] LABS: TOTAL PROTEIN 4.5 GM/DL (6.4-8.2)
[2023-04-22 05:13] LABS: BILIRUBIN,TOTAL 0.6 MG/DL (0.1-1.0)
[2023-04-22 05:15] LABS: CREATININE SERUM 1.17 MG/DL (0.60-1.30); PHOSPHORUS 3.1 MG/DL (2.3-4.7)
[2023-04-22 05:19] LABS: MAGNESIUM 2.1 MG/DL (1.6-2.4)
[2023-04-22] MEDS: KCL 20 MEQ TAB (K-DUR) PO SCH (05:28)
[2023-04-22] MEDS: MAGNESIUM 1 GM/100 ML IVPB 100 ML IV SCH (05:28)
[2023-04-22] MEDS: POTASSIUM CL 10MEQ/50ML IVPB 50 ML IV SCH ×4 (05:28→13:56)
[2023-04-22 07:54] LABS: ABG BASE EXCESS -1.6 MMOL/L (-2.5-2.5); ABG OXYGEN SATURATION 92 % (94-100); ABG PCO2 52 MMHG (35-45); ABG PO2 61 MMHG (79-93); ABG TCO2 25.7 MMOL/L (21.0-31.0)
[2023-04-22 07:57] LABS: ABG PH 7.29 (7.37-7.43); ALLENS TEST YES-POS; INSPIRED O2 ROOM AIR
[2023-04-22 07:58] LABS: PATIENT TEMP 36.8; VENTILATOR NO
[2023-04-22] MEDS: NS IV SCH ×2 (08:18→22:15)
[2023-04-22] MEDS: VASOPRESSIN IV SCH ×2 (08:18→22:15)
[2023-04-22] MEDS: DOCUSATE SODIUM 100 MG (COLACE) CAP PO SCH ×2 (08:37→20:47)
[2023-04-22] MEDS: SENNOSIDES 8.6 MG (SENOKOT) TAB PO SCH ×2 (08:38→20:47)
[2023-04-22] MEDS: MICONAZOLE 2% POWDER (DESENEX AF) 90 GM TOP SCH ×2 (08:51→22:14)
[2023-04-22] MEDS: VANCOMYCIN 750 MG/NS 250 ML IVPB IV SCH ×2 (08:51)
[2023-04-22] MEDS: SALIVA SUBSTITUTE 60 ML SPRAY(MOUTHKOTE) MM SCH ×2 (08:51→20:49)
[2023-04-22] MEDS: MUPIROCIN 2% OINT 22 GM (BACTROBAN) TUBE NSEACH SCH ×2 (08:51→20:49)
[2023-04-22] MEDS: COLLAGENASE 30 GM (SANTYL) TUBE TP SCH ×2 (08:52→20:50)
--- NOTE | 2023-04-22 08:54 | Tele-ICU Progress Note ---
Progress Note video rounds completed 87 y/o female admitted from a [place] with septic shock Possible UTI vs decubitus. She has DNR order in place. Available chart/ vitals / labs / Images reviewed Video assessment done using teleICU camera, rest of exam as per RN Discussed with RN this am, Patient seems a bit more lethargic this am. RN obtained a AN AB.29/52/61/24 This was not much different than prior ABG. BIPAP restarted Afebrile hemodynamically stable Respiratory - BIPAP Pressors- levo and vasopressin Hospital course: (7.9) Admitted a 87y/o with septic shock UTI from [place], R fem line 04/17- on magdy 250 , 3L nc 04/18- levo 04/19 - levo , vaso added 04/20- levo 0.05, vaso , lethargy 04/22 - lethargic, BIPAP started, WBC 7.8 A/P Shock septic - off IVF severe edema +severe hypoalbuminemia) - on levo , can not wean off -added vasopressin - cont empiric abx ( zosyn 04/16 and vanc lethargy - will check ABG h/o DVT , IVC filter in place -Coagulopathy INR 14 ( on coumadine - INR down to 1.4 with Vitamin K - on lovenox Wound + MRSA prelim - on vanco , zosyn - await final cx Thrombocytropenia - new on lovenox - will follow ( no HIPA w/up now Hypoglycemia - resolved to follow Speach eval - high risk for aspiration - NPO now - might need NG VTE Prophylaxis: lovenox Stress Ulcer Prophylaxis: na approximately 15 minutes spent in review of video and chart I am remotely monitoring this patient from another state. I am unable to do the bedside exam, and history/physical and pertinent information is taken from other notes in the computer and bedside staff. . Sepsis Event Evaluation Height, Weight, BMI Height: 5'0.00" Weight: 123lbs. 0.0oz. 55.454241lv; 39.74 BMI Method:Stated Exam Exam Patient acknowledged, consented, and participated in this virtual visit which was conducted using real time audio/video Vital Signs Date Time Temp Pulse Resp B/P (MAP) Pulse Ox O2 Delivery O2 Flow Rate FiO2 04/20/23 10:00 62 21 91/46 (61) 100 Nasal Cannula 4.00 04/20/23 09:00 69 50 99/62 (74) 100 Nasal Cannula 4.00 04/20/23 08:00 61 51 94/61 (72) 100 04/20/23 07:56 36.8 04/20/23 07:54 71 04/20/23 07:00 67 17 99/61 (74) 100 04/20/23 06:50 Nasal Cannula 3.00 04/20/23 06:49 100 Nasal Cannula 4.00 04/20/23 06:00 62 17 104/62 (81) 100 04/20/23 05:45 94/65 (77) 04/20/23 05:30 64 18 93/66 (76) 100 Nasal Cannula 4.00 04/20/23 05:15 65 18 103/60 (86) 100 Nasal Cannula 4.00 04/20/23 05:00 67 14 93/54 (70) 100 Nasal Cannula 4.00 04/20/23 04:45 83/59 (66) 04/20/23 04:30 65 17 93/64 (69) 100 Nasal Cannula 4.00 04/20/23 04:15 72 12 106/68 (84) 100 Nasal Cannula 4.00 04/20/23 04:02 92 Nasal Cannula 4.00 04/20/23 04:00 36.0 71 24 100/59 (78) 90 Nasal Cannula 4.00 04/20/23 03:45 65 40 91/70 (78) 100 Nasal Cannula 4.00 04/20/23 03:30 64 12 102/60 (78) 99 Nasal Cannula 4.00 04/20/23 03:15 106/69 (78) 04/20/23 03:00 73 19 98/61 (69) 100 Nasal Cannula 4.00 04/20/23 02:45 71 11 73/58 (60) 100 Nasal Cannula 4.00 04/20/23 02:37 75 100/65 04/20/23 02:30 64 12 100/65 (87) 93 Nasal Cannula 4.00 04/20/23 02:15 78 24 104/69 (79) 90 Nasal Cannula 4.00 04/20/23 02:00 68 16 105/60 (83) 94 Nasal Cannula 4.00 04/20/23 01:45 66 36 108/73 (87) 96 Nasal Cannula 4.00 04/20/23 01:30 70 15 106/59 (76) 93 Nasal Cannula 4.00 04/20/23 01:15 64 12 86/79 (84) 93 Nasal Cannula 4.00 04/20/23 01:00 70 14 99/74 (79) 94 Nasal Cannula 4.00 04/20/23 01:00 70 04/20/23 00:45 101/55 (85) 04/20/23 00:35 65 101/76 04/20/23 00:30 65 12 101/76 (90) 94 Nasal Cannula 4.00 04/20/23 00:15 71 16 104/63 (77) 76 Nasal Cannula 4.00 04/20/23 00:00 67 21 105/70 (86) 93 Nasal Cannula 4.00 04/19/23 23:59 92 Nasal Cannula 4.00 04/19/23 23:45 64 40 107/56 (75) 91 Nasal Cannula 4.00 04/19/23 23:30 64 14 101/67 (90) 87 Nasal Cannula 4.00 04/19/23 23:00 69 28 91/64 (73) 96 Nasal Cannula 4.00 04/19/23 22:45 36.2 66 17 98/89 (95) 93 Nasal Cannula 4.00 04/19/23 22:39 65 17 108/64 (87) 93 Nasal Cannula 4.00 04/19/23 22:30 67 12 78/34 (42) 81 Nasal Cannula 4.00 04/19/23 22:15 73 52 85/58 (73) 84 Nasal Cannula 4.00 04/19/23 22:00 61 18 92/56 (68) 100 Nasal Cannula 4.00 04/19/23 21:45 71 27 91/85 (87) 94 Nasal Cannula 4.00 04/19/23 21:30 65 25 92/50 (72) 99 Nasal Cannula 4.00 04/19/23 21:15 66 21 69/56 (64) 97 Nasal Cannula 4.00 04/19/23 21:00 84 23 96/64 (75) 91 Nasal Cannula 4.00 04/19/23 20:15 74 23 99/61 (76) 99 Nasal Cannula 4.00 04/19/23 20:00 93 Nasal Cannula 4.00 04/19/23 20:00 67 10 96/68 (74) 100 Nasal Cannula 4.00 04/19/23 19:45 70 19 100/69 (79) 96 Nasal Cannula 4.00 04/19/23 19:30 66 13 96/65 (80) Nasal Cannula 4.00 04/19/23 19:15 36.1 86/61 (76) 04/19/23 19:00 70 04/19/23 19:00 65 12 103/75 (86) 95 Nasal Cannula 4.00 04/19/23 18:00 68 14 82/75 (81) 88 Nasal Cannula 4.00 04/19/23 17:00 78 18 129/63 (85) 85 Nasal Cannula 3.00 04/19/23 16:13 75 04/19/23 16:00 69 15 122/74 (90) 99 Nasal Cannula 3.00 04/19/23 16:00 94 Nasal Cannula 4.00 04/19/23 15:00 84 15 103/60 (74) 87 Nasal Cannula 3.00 04/19/23 14:00 74 15 94/56 (69) 99 Nasal Cannula 3.00 04/19/23 13:00 72 15 105/62 (76) 100 Nasal Cannula 3.00 04/19/23 12:58 68 04/19/23 12:00 94 Nasal Cannula 4.00 04/19/23 12:00 89 15 104/65 (78) 85 Nasal Cannula 3.00 04/19/23 11:00 73 15 110/65 (80) 99 Nasal Cannula 3.00 I & O 04/20/23 07:00 Intake Total 700 ml Output Total 725 ml Balance -25 ml Height & Weight Height: 5'0.00" Weight: 123lbs. 0.0oz. 55.984476nn; 39.74 BMI Method:Stated General Appearance: No Apparent Distress, WD/WN HEENT: PERRL/EOMI, Normal ENT Inspection, Pharynx Normal Neck: Full Range of Motion, Supple Respiratory: Chest Non Tender, Lungs Clear, Normal Breath Sounds, No Accessory Muscle Use, No Respiratory Distress Cardiovascular: Regular Rate, Rhythm, No Murmur, Normal Peripheral Pulses Capillary Refill: Less Than 3 Seconds Gastrointestinal: normal bowel sounds, non tender, soft, other (incontinence of bowel) Extremity: Normal Capillary Refill, Normal Inspection, Non Tender, No Calf Tenderness Neurologic/Psychiatric: Alert, Oriented x3, No Motor/Sensory Deficits, Normal Mood/Affect, director clinical applications II-XII Norm as Tested Skin: Normal Color, Warm/Dry Results Lab Laboratory Tests 04/19/23 03:45 04/20/23 03:25 Focused Exam Height, Weight, BMI Height: 5'0.00" Weight: 123lbs. 0.0oz. 55.680328kj; 40.47 BMI Method:Stated Labs Laboratory Tests 04/22/23 04:43 YNES YING MD Apr 22, 2023 08:54
[2023-04-22] MEDS ORDERED: TPN IV SCH (09:15)
[2023-04-22] MEDS ORDERED: OXYMETAZOLINE (AFRIN) 0.05% NA 30 ML BTL PRN (09:15)
--- NOTE | 2023-04-22 09:21 | Progress Note - Hospitalist ---
Subjective HPI/CC On Admission Date Seen by Provider: Apr 22, 2023 Patient is an 87-year-old female who presented to the emergency department due to near syncope. She resides in a local half-way and staff reported to EMS that she was nodding off for several seconds while having a conversation which is abnormal for her. She was found to be quite hypotensive in the emergency department. She has no complaints to me nor did she for the em ergency department though there was mention of a sore on her bottom that has been present for quite a while. Labs revealed leukocytosis there was concern for sepsis so she was admitted for further evaluation. Throughout the night her blood pressures dropped further and she was transferred to the ICU for vasopressor support. This morning she is awake and alert but is still quite hypotensive. Subjective/Events-last exam Pt back on BiPAP. Only able to tell me that she is cold. Family at bedside and updated them. Was off pressors briefly last night but back on them at very low doses. Plts trending down again. Family wondering about nutrition, was cleared to eat by SIDING APPLICATOR yesterday but nowmentation worse. Discussed plan to start TPN. Objective Exam Vital Signs Vital Signs Date Time Temp Pulse Resp B/P (MAP) Pulse Ox O2 Delivery O2 Flow Rate FiO2 04/22/23 09:00 74 16 100/59 (83) 100 NIV Bilevel 35.00 04/22/23 07:20 36.8 Capillary Refill : Less Than 3 Seconds General Appearance: Chronically ill, Other (temporal wasting) Respiratory: Decreased Breath Sounds; No Wheezing; Other (on BiPAP) Cardiovascular: No Murmur, Irregularly Irregular Gastrointestinal: Normal Bowel Sounds, Soft Neurologic/Psychiatric: Alert, Other (did not answer any questions, just repeated she is cold) Results/Procedures Lab Laboratory Tests 04/22/23 04:43 Patient resulted labs reviewed. 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
[2023-04-22] MEDS ORDERED: FUROSEMIDE 40 MG/4 ML INJ (LASIX) IVP NR (09:30)
[2023-04-22] MEDS ORDERED: ALBUMIN 25% 25 GM/100 ML 100 ML IV ONE (09:30)
[2023-04-22 10:26] LABS: ABG BASE EXCESS -1.8 MMOL/L (-2.5-2.5); ABG OXYGEN SATURATION 99 % (94-100); ABG PCO2 50 MMHG (35-45); ABG PO2 116 MMHG (79-93); ABG TCO2 25.3 MMOL/L (21.0-31.0)
[2023-04-22] MEDS: PHENYLEPHRINE DRIP 250 ML IV SCH ×2 (10:26→22:15)
[2023-04-22 10:27] LABS: ALLENS TEST YES-POS
[2023-04-22 10:28] LABS: INSPIRED O2 35%; PATIENT TEMP 36.8; VENTILATOR NO
[2023-04-22 10:32] LABS: INR 1.4 (0.8-1.4); PROTHROMBIN TIME PATIENT 17.1 SEC (12.2-14.7)
[2023-04-22] MEDS: FAMOTIDINE 20 MG (PEPCID) TABLET PO SCH (10:40)
[2023-04-22] MEDS: PANTOPRAZOLE 40 MG (PROTONIX) TAB PO SCH ×3 (10:40→20:50)
[2023-04-22] MEDS: morphine INJ 4 MG/ML 1 ML (VIAL/SYRINGE) IV PRN ×2 (11:18→15:08)
--- NOTE | 2023-04-22 12:04 | CONSULTATION REPORT ---
DATE OF SERVICE: 04/22/2023 ADMITTING PHYSICIAN: Dr. Viramontes. ATTENDING PRIMARY CARE PHYSICIAN: Dr. Reggie Conde. HISTORY OF PRESENT ILLNESS: The patient is an 87-year-old female who presented to the Emergency Department due to near syncopal episodes. She resides in an extended care facility where EMS reports that she had knotted off for several seconds while having a conversation. She was also found to be hypotensive in the Emergency Department. The patient was found to be septic and did require vasopressor support, which she still needs. She continues to be hypotensive. The patient does have a history of atrial fibrillation as well and was on Coumadin and was supratherapeutic with an INR range of 14. A femoral central venous catheter was placed; however, due to the location, this will need to be removed and another one placed in the subclavian region to decrease infection risk. PAST MEDICAL HISTORY: Sepsis, hypertension, atrial fibrillation, history of DVT, chronic urinary tract infection, gastroesophageal reflux disease, history of hiatal hernia. PAST SURGERIES: Cholecystectomy, hysterectomy, joint replacement surgery, abdominal surgery. ALLERGIES: ASPIRIN, MEPERIDINE, NITROFURANTOIN, SOME TYPES OF TAPES. MEDICATIONS: Famotidine 20 mg b.i.d., gabapentin 800 mg t.i.d., morphine 30 mg b.i.d. Naloxegol oxalate 25 mg daily, Zofran 8 mg every 8 hours p.r.n., oxycodone 10 mg p.r.n., Protonix 40 mg b.i.d., Coumadin 1 mg 3 days a week, 2 mg 1 day a week. SOCIAL HISTORY: Negative smoke, negative alcohol. FAMILY HISTORY: Noncontributory. VITAL SIGNS: Temperature 36.8, blood pressure 104/60, pulse 66, respirations 12, pulse ox 100% on BiPAP at 35% FiO2. REVIEW OF SYSTEMS: This is an elderly female who is nonverbal; however, does appear to not appropriately with questions. She is currently on the BiPAP. It does not appear to be using accessory muscles of breathing. No known chest pain, palpitations, diaphoresis. No nausea, vomiting with history of constipation. No known red blood per rectum, nor any dark tarry stools. No known fevers or chills with some weight loss over the past few years. All other review of systems negative. PHYSICAL EXAM: CHEST: Scattered rales and rhonchi bilaterally. HEART: Regular. No murmurs. EXTREMITIES: Plus 1/3 bilateral lower extremity edema. Negative Homans sign. HEENT: No scleral icterus. No cervical lymphadenopathy. ABDOMEN: Soft, nontender, nondistended. SKIN: Warm, dry. LABORATORY DATA: WBC 7.8, hemoglobin 9.3, hematocrit 30, platelets 66, BUN 28, creatinine 1.17. INR 1.4. ASSESSMENT AND PLAN: An 87-year-old female with sepsis and hypertension of unknown etiology. This may be due to an underlying urinary tract infection, pneumonia, as well as a possible sacral decubitus ulcer. Since being admitted, she has required 2 vasopressors and she continues to require these vasopressors. She was supratherapeutic at the time of admission and had a femoral central venous catheter placed, which we will not remove and place a subclavian central venous catheter to decrease the risk of further infection. Job ID: [id number] DocumentID: [id number] Dictated Date: 04/22/2023 11:41:03 Software Verification Engineer Date: 04/22/2023 12:01:00 Dictated By: JAGJIT MORRISON MD
--- NOTE | 2023-04-22 12:33 | Diagnostic Imaging Report ---
INDICATION: Line placement TECHNIQUE: Single view chest 11:43 AM CORRELATION STUDY: 04/20/2023 FINDINGS: Left subclavian central line has been placed tip over the SVC. Findings are positive for new left apical pneumothorax. Pleural line projects just below the posterior left 4th rib. Small effusions. Bilateral perihilar and basilar opacities may reflect edema or infiltrate. Heart size enlarged has least mild vascular congestion. IMPRESSION: 1. Left subclavian central line has been placed. Tip over the SVC. 2. Development of a small left apical pneumothorax. 3. Bilateral pulmonary opacities favoring edema versus potential infiltrate/pneumonia. Critical findings: Telephone call has been made to the ICU nursing staff, 12:05 PM. Dictated by: Dictated on workstation # [id number]
--- NOTE | 2023-04-22 12:50 | CONSULTATION REPORT ---
DATE OF SERVICE: 04/22/2023 PHYSICIAN REQUESTING CONSULTATION: Phuong Viramontes. Patient is admitted to ICU bed 11. IMPRESSION: 1. Probable sepsis with hypotension. 2. Supratherapeutic INR on admission, status post treatment with vitamin K. 3. 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 Sepsis may also contribute to the thrombocytopenia. 4. History of deep venous thrombosis and pulmonary embolism in the past as well as atrial fibrillation and on chronic anticoagulation with warfarin. 5. Previous history of IVC filter placement. RECOMMENDATIONS: 1. Continue management of sepsis as you are doing with broad-spectrum antibiotics. Wound culture from the sacrum pending and adjust antibiotics as needed. 2. Discontinue Lovenox and start the patient on fondaparinux 7.5 mg subQ daily. Continue warfarin at previous doses until INR is therapeutic and overlap 48 hours with fondaparinux before discontinuing it. 3. Continue to monitor platelet counts serially. If continuing to decrease, will need DIC panel serially. 4. Continue rest of the care as you are doing. 5. Overall, prognosis is guarded. 6. Discontinue heparin and all heparin products as the patient may have HIT. BRIEF HISTORY OF PRESENT ILLNESS: The patient is an 87-year-old female who has been a [facility] resident for the last 4 years. She was brought to the emergency room with a passing out spell and was found to be hypotensive. She had an open wound over her sacrum, which is growing Pseudomonas and MRSA. She also has MRSA in her nostrils and is being treated with broad-spectrum antibiotics with vancomycin and Zosyn. At the time of admission, her INR was supratherapeutic. 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 She was previously on Eliquis, but had a DVT while on Eliquis. I do not have the details of any workup done in the past as to the etiology of recurrent DVTs/PEs. She was started on Lovenox and is having worsening thrombocytopenia. 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 Because of this, a hematology consultation was requested. 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 She has history of atrial fibrillation, COPD, chronic kidney disease, GERD with hiatal hernia and previous peptic ulcer disease. She has osteoporosis with previous fractures. PRIOR SURGERIES: Cholecystectomy, hysterectomy, bowel resection, joint replacement and vascular surgeries. The patient is sedated for surgical procedure today and could not provide any detailed history. SOCIAL HISTORY: The patient is and has been living at [facility] since the last 4 years. She had 5 children and an adopted son. Three of her children have and the adopted son. Two daughters are alive, but lives out of town. A granddaughter who lives close by and has a medical power of traffic law attorney. She is retired, has no history of tobacco, alcohol or recreational drug use per the records. REVIEW OF SYSTEMS: Could not be obtained from the patient today. PHYSICAL EXAMINATION: GENERAL: Today showed an elderly female, somnolent. VITAL SIGNS: She was afebrile with a pulse rate of 66, respirations 12, blood pressure 104/60 and pulse oximetry showing 100% saturation with a BiPAP at 35% of oxygen. HEENT: Normocephalic. Oral mucosa moist. NECK: Supple, with no JVD. CHEST: Showed a left-sided triple lumen venous access. LUNGS: With diminished breath sounds, especially in the bases. No wheezes or rales heard. CARDIOVASCULAR: Fairly irregular with missed beats. Grade 2 systolic murmur heard. ABDOMEN: Soft with hypoactive bowel sounds. No definite hepatosplenomegaly palpable. EXTREMITIES: Showed 1 to 2+ edema. NEUROLOGIC: Could not be completed as she is somnolent and was not following instructions. CBC done today showed WBC 7.8, hemoglobin 9.3, platelet count 66,000 with neutrophil count 6.1, lymphocyte count 1.1 and monocyte count 0.6. Chemistry panel showed relatively normal electrolytes. BUN was 28 and creatinine 1.17 with GFR 45 mL per minute. Liver function studies were normal except albumin level of 2.4. Protime was 17.1 with INR of 1.4 today. Previously on 04/18/2023, the protime was 101.9 with INR of 14.6. Wound culture from the ulcer over the coccyx showed mixed bacterial liv with pseudomonas and Staph aureus. Further testing in progress. Last chest x-ray from 04/20/2023 showed stable bilateral pleural effusion with right basilar atelectasis as well as stable left basilar atelectasis or infiltrates. Cardiomegaly and pulmonary vascular prominence noted. Thank you for allowing me to participate in this patient's care. I will follow the patient with you and make appropriate recommendations. Job ID: [id number] DocumentID: [id number] Dictated Date: 04/22/2023 12:04:26 Timing Adjuster Date: 04/22/2023 12:47:00 Dictated By: GONZALEZ NGO MD MTDD
--- NOTE | 2023-04-22 13:23 | OPERATIVE REPORT ---
ADMITTING PHYSICIAN: Dr. Viramontes. ATTENDING PRIMARY CARE PHYSICIAN: Reggie Conde MD PREOPERATIVE DIAGNOSES: Sepsis and hypotension. POSTOPERATIVE DIAGNOSES: Sepsis and hypotension. PROCEDURE: Placement, left subclavian central venous catheter. SURGEON: Jagjit Castaneda MD NONPROFIT DIRECTOR: Alen Owens APRN ANESTHESIA: Local. ESTIMATED BLOOD LOSS: Minimal. DISPOSITION: The patient tolerated the procedure well. INDICATIONS: The patient is an 87-year-old female who had multiple syncopal episodes at her extended care facility. She was brought to the Emergency Department from her extended care facility where she was found to be significantly hypotensive with an elevated white count. She was also found to be severely supratherapeutic on her Coumadin with an INR in the 14 range. The patient required vasopressors and a femoral catheter was placed. The patient still requires continued vasopressor support to maintain blood pressure and will require placement of a subclavian central venous catheter to decrease the risk of further infection. DESCRIPTION OF PROCEDURE: The chest and neck were prepped and draped in standard surgical fashion. 1% lidocaine was used to anesthetize the left subclavian region. The left subclavian vein was then cannulated with drawing of venous blood. The guidewire was then inserted without any resistance. The cannulating needle removed and a skin incision made using 11 blade. A tract was then created using a venous dilator. Triple lumen central venous catheter was then placed over the guidewire using the Seldinger technique. The guidewire was then removed and all 3 ports oscar venous blood and saline pushed in without any resistance. The catheter was then sutured to the skin using 3-0 silk interrupted sutures. Catheter was then cleaned and covered with Op-Site. The patient tolerated the procedure well. We will get a post-procedure chest x-ray. Job ID: [id number] DocumentID: [id number] Dictated Date: 04/22/2023 11:44:01 Supply Chain Buyer Date: 04/22/2023 13:21:00 Dictated By: JAGJIT CASTANEDA MD
[2023-04-22] MEDS: NOREPINEPHRINE 8 MG/250 ML 250 ML IV SCH (14:23)
[2023-04-22] MEDS: HYDROcodone/APAP 5 MG/325 MG (LORTAB) TAB PO PRN (16:06)
[2023-04-22] MEDS: FONDAPARINUX 10 MG/0.8 ML SQ SCH (16:46)
[2023-04-22] MEDS ORDERED: SODIUM CHLORIDE 14.6% INJ 70 MEQ, POTASSIUM ACETATE INJ 40 MEQ, POTASSIUM PHOSPHATE INJ... IV SCH ×10 (17:00)
[2023-04-22] MEDS: warFARin 1 MG (COUMADIN) TAB PO SCH (18:06)
[2023-04-22] MEDS: TOLTERODINE LA 2 MG (DETROL LA) CAP PO SCH (20:48)
[2023-04-23] MEDS: PIPERACILLIN SODIUM/TAZOBACTAM 4.5 GM in NS (IVPB) 100 ML IV SCH ×3 (03:39→20:15)
[2023-04-23 03:56] LABS: BASOPHILS % (AUTO) 0 % (0-10); HEMOGLOBIN 8.5 g/dL (11.5-16.0)
[2023-04-23 03:58] LABS: EOSINOPHILS % (AUTO) 0 % (0-10); HEMATOCRIT 28 % (35-52); LYMPHOCYTES # (AUTO) 0.8 10^3/uL (1.0-4.0); LYMPHOCYTES % (AUTO) 11 % (12-44); MEAN CORPUSCULAR HEMOGLOBIN 33 pg (25-34); MEAN CORPUSCULAR HGB CONC 31 g/dL (32-36); MEAN CORPUSCULAR VOLUME 107 fL (80-99); MEAN PLATELET VOLUME 12.8 fL (9.0-12.2); MONOCYTES # (AUTO) 0.6 10^3/uL (0.0-1.0); MONOCYTES % (AUTO) 8 % (0-12); NEUTROPHILS # (AUTO) 6.1 10^3/uL (1.8-7.8); NEUTROPHILS % (AUTO) 81 % (42-75); PLATELET COUNT 54 10^3/uL (130-400); WHITE BLOOD COUNT 7.6 10^3/uL (4.3-11.0)
[2023-04-23 04:06] LABS: INR 1.3 (0.8-1.4); PROTHROMBIN TIME PATIENT 16.3 SEC (12.2-14.7)
[2023-04-23 05:10] LABS: ALBUMIN 2.6 GM/DL (3.2-4.5); BILIRUBIN,TOTAL 0.6 MG/DL (0.1-1.0); CALCIUM 8.3 MG/DL (8.5-10.1); CREATININE SERUM 1.4 MG/DL (0.60-1.30); PHOSPHORUS 3.3 MG/DL (2.3-4.7); POTASSIUM 4.3 MMOL/L (3.6-5.0); TOTAL PROTEIN 4.5 GM/DL (6.4-8.2)
[2023-04-23] MEDS: NOREPINEPHRINE 8 MG/250 ML 250 ML IV SCH ×2 (05:40→20:03)
[2023-04-23] MEDS: MAGNESIUM 1 GM/100 ML IVPB 100 ML IV SCH (05:40)
[2023-04-23] MEDS: KCL 20 MEQ TAB (K-DUR) PO SCH (05:40)
[2023-04-23] MEDS: POTASSIUM CL 10MEQ/50ML IVPB 50 ML IV SCH (05:40)
[2023-04-23] MEDS: FONDAPARINUX 10 MG/0.8 ML SQ SCH (09:13)
[2023-04-23] MEDS: NS IV SCH ×2 (09:13→20:03)
[2023-04-23] MEDS: FAMOTIDINE 20 MG (PEPCID) TABLET PO SCH (09:13)
[2023-04-23] MEDS: PANTOPRAZOLE 40 MG (PROTONIX) TAB PO SCH ×2 (09:13→20:15)
[2023-04-23] MEDS: VASOPRESSIN IV SCH ×2 (09:13→20:03)
[2023-04-23] MEDS: DOCUSATE SODIUM 100 MG (COLACE) CAP PO SCH ×2 (09:14→21:00)
[2023-04-23] MEDS: SALIVA SUBSTITUTE 60 ML SPRAY(MOUTHKOTE) MM SCH ×2 (09:15→20:16)
[2023-04-23] MEDS: MUPIROCIN 2% OINT 22 GM (BACTROBAN) TUBE NSEACH SCH ×2 (09:15→20:15)
[2023-04-23] MEDS: SENNOSIDES 8.6 MG (SENOKOT) TAB PO SCH ×2 (09:15→21:00)
[2023-04-23] MEDS: HYPOCHLOROUS ACID/NaCl (VASHE) 250 ML IR SCH (09:16)
[2023-04-23] MEDS: MICONAZOLE 2% POWDER (DESENEX AF) 90 GM TOP SCH ×2 (09:16→20:16)
[2023-04-23] MEDS: COLLAGENASE 30 GM (SANTYL) TUBE TP SCH ×2 (09:16→20:17)
--- NOTE | 2023-04-23 09:27 | Diagnostic Imaging Report ---
INDICATION: Pneumothorax Portable chest 6:02 AM Comparison is made to the previous day. There is a small residual left apical pneumothorax measuring about 8 mm. There is some consolidation at both lung bases that could be a combination of infiltrate, atelectasis and/or effusion. IMPRESSION: Greater volume loss at the lung bases compared to previous day. Left pneumothorax appears smaller. Left subclavian central line tip projects over the SVC. Dictated by: Dictated on workstation # [id number]
--- NOTE | 2023-04-23 09:28 | Progress Note - Hospitalist ---
Subjective HPI/CC On Admission Date Seen by Provider: Apr 23, 2023 Patient is an 87-year-old female who presented to the emergency department due to near syncope. [facility] a local [facility] and staff reported to EMS that she was nodding off for several seconds while having a conversation which is abnormal for her. She was found to be quite hypotensive in the emergency department. She has no complaints to me nor did she for the em ergency department though there was mention of a sore on her bottom that has been present for quite a while. Labs revealed leukocytosis there was concern for sepsis so she was admitted for further evaluation. Throughout the night her blood pressures dropped further and she was transferred to the ICU for vasopressor support. This morning she is awake and alert but is still quite hypotensive. Subjective/Events-last exam Pt more alert today. Asking for a drink of water. Off BiPAP. Spoke with family about current status. Off pressors and bipap but renal function worse today. Discussed that she does not need dialysis yet but that if UOP doesn't picking tech or renal function worsens on labs they need to consider if she would want transfer for dialysis. They plan to discuss as a family. Objective Exam Vital Signs Vital Signs Date Time Temp Pulse Resp B/P (MAP) Pulse Ox O2 Delivery O2 Flow Rate FiO2 04/23/23 09:00 76 15 101/67 (82) 100 Nasal Cannula 4.00 04/23/23 03:37 36.4 Capillary Refill : Less Than 3 Seconds General Appearance: Chronically ill Respiratory: Decreased Breath Sounds Cardiovascular: No Murmur, Irregularly Irregular Gastrointestinal: Normal Bowel Sounds, Soft Extremity: Pedal Edema, Swelling (slightly better today) Neurologic/Psychiatric: Alert, Other (answering some questions appropriately today) Skin: No Mottled Results/Procedures Lab Laboratory Tests 04/23/23 03:45 Patient resulted labs reviewed. Imaging: Reviewed Imaging Report Assessment/Plan Assessment and Plan Assess & Plan/Chief Complaint Septic Shock- POA Poor prognosis Etiology likely her wound Continue broad spectrum abx Has sore on sacrum and under pannus- wound care consulted MRSA in nares and wound- continue vanc Levophed and vasopressin off since yesterday Surgery placed new central line 04/22 PAUL Squeak Rattle And Leak Repairer up to 1.4 today after lasix yesterday Monitor UOP Family to discuss wishes for if renal function worsens K 4.3, bicarb 23 Supratherapuetic INR A fib Thrombocytopenia INR now subtherapeutic Consult heme/onc reviewed labs and in 2018 had a HIT antibody that was equivocal- discussed with Dr Garrido who recommended switching to fondaparinux and restarting coumadin- defer management to them Acute on chronic respiratory failure Off BiPAP On 4lpm Pressure ulcers- POA Wound care consulted, appreciate recs Defer management to them Dysphagia Speech consulted TPN ordered More alert today so try oral intake per recs as able DVT ppx; fonaparinux Critical Care Critically Ill Patient RIZWAN VIDAL MD Apr 23, 2023 09:27
--- NOTE | 2023-04-23 11:11 | Progress Note ---
Subjective Date Seen by a Provider: Apr 23, 2023 Time Seen by a Provider: 10:30 Subjective/Events-last exam Patient seen with Dr. Castaneda. Patient more alert and communicates today. Denies any SOB or difficulty breathing. Central line with pressure dressing applied due to oozing from low platelets. Objective Exam Vital Signs Date Time Temp Pulse Resp B/P (MAP) Pulse Ox O2 Delivery O2 Flow Rate FiO2 04/23/23 10:00 82 15 111/55 (77) 100 Nasal Cannula 4.00 04/23/23 09:00 76 15 101/67 (82) 100 Nasal Cannula 4.00 04/23/23 08:00 78 15 96/56 (81) 100 Nasal Cannula 4.00 04/23/23 07:30 100 Nasal Cannula 4.00 04/23/23 07:30 36.6 04/23/23 07:00 71 14 118/62 (88) 100 Nasal Cannula 4.00 04/23/23 07:00 77 04/23/23 06:00 62 12 84/48 (60) 100 Nasal Cannula 4.00 04/23/23 05:40 72 97/56 04/23/23 05:00 62 13 88/46 (60) 100 Nasal Cannula 4.00 04/23/23 04:00 71 12 115/67 (83) 99 Nasal Cannula 4.00 04/23/23 03:38 100 Nasal Cannula 4.00 04/23/23 03:37 36.4 04/23/23 01:00 72 04/23/23 00:00 100 Nasal Cannula 4.00 04/23/23 00:00 71 12 97/56 (70) 100 Nasal Cannula 4.00 04/22/23 23:29 36.6 04/22/23 23:00 90 18 106/74 (85) 98 Nasal Cannula 4.00 04/22/23 22:00 97 23 111/73 (86) 94 Nasal Cannula 4.00 04/22/23 21:00 87 17 87/49 (62) 97 Nasal Cannula 4.00 04/22/23 20:00 94 Nasal Cannula 4.00 04/22/23 20:00 87 14 102/69 (80) 99 Nasal Cannula 4.00 04/22/23 19:39 36.4 04/22/23 19:00 73 04/22/23 19:00 74 14 109/59 (76) 100 Nasal Cannula 4.00 04/22/23 18:46 100 Nasal Cannula 1.00 04/22/23 18:00 86 13 94/55 (73) 100 Nasal Cannula 4.00 04/22/23 17:00 80 15 123/63 (83) 99 Nasal Cannula 4.00 04/22/23 16:00 Nasal Cannula 4.00 04/22/23 16:00 78 17 115/74 (87) Nasal Cannula 4.00 04/22/23 15:00 75 14 103/61 (77) 97 Nasal Cannula 4.00 04/22/23 14:00 74 13 105/86 (92) 98 Nasal Cannula 4.00 04/22/23 13:00 69 13 100/56 (77) 95 Nasal Cannula 4.00 04/22/23 12:24 75 04/22/23 12:20 Nasal Cannula 4.00 04/22/23 12:00 74 14 108/67 (84) 97 NIV Bilevel 35.00 04/22/23 12:00 Room Air 1.00 I & O 04/23/23 07:00 Intake Total 945 ml Output Total 310 ml Balance 635 ml Capillary Refill : Less Than 3 Seconds General Appearance: WD/WN Neck: Normal Inspection, Supple Respiratory: No Accessory Muscle Use, No Respiratory Distress Gastrointestinal: non tender, soft Extremity: Swelling (lower extermities) Neurologic/Psychiatric: Alert, Normal Mood/Affect Skin: Normal Color, Warm/Dry Results Lab Laboratory Tests 04/22/23 18:26: Glucometer 70 04/22/23 23:28: Glucometer 130H 04/23/23 03:45: White Blood Count 7.6, Red Blood Count 2.59L, Hemoglobin 8.5L, Hematocrit 28L, Mean Corpuscular Volume 107H, Mean Corpuscular Hemoglobin 33, Mean Corpuscular Hemoglobin Concent 31L, Red Cell Distribution Width 16.8H, Platelet Count 54L, Mean Platelet Volume 12.8H, Immature Granulocyte % (Auto) 1, Neutrophils (%) (Auto) 81H, Lymphocytes (%) (Auto) 11L, Monocytes (%) (Auto) 8, Eosinophils (%) (Auto) 0, Basophils (%) (Auto) 0, Neutrophils # (Auto) 6.1, Lymphocytes # (Auto) 0.8L, Monocytes # (Auto) 0.6, Eosinophils # (Auto) 0.0, Basophils # (Auto) 0.0, Immature Granulocyte # (Auto) 0.1, Percent Immature Platelet Fraction 13.0H, Prothrombin Time 16.3H, INR Comment 1.3, Sodium Level 142, Potassium Level 4.3, Chloride Level 110H, Carbon Dioxide Level 23, Anion Gap 9, Blood Urea Nitrogen 35H, Creatinine 1.40H, Estimat Glomerular Filtration Rate 36, BUN/Creatinine Ratio 25, Glucose Level 140H, Calcium Level 8.3L, Corrected Calcium 9.4, Phosphorus Level 3.3, Magnesium Level 2.0, Total Bilirubin 0.6, Aspartate Amino Transf (AST/SGOT) 11, Alanine Aminotransferase (ALT/SGPT) 6, Alkaline Phosphatase 67, Total Protein 4.5L, Albumin 2.6L, Triglycerides Level 164H Microbiology 04/19/23 Gram Stain - Final, Resulted 04/19/23 Wound Culture - Preliminary, Resulted Mixed Bacterial Zina Pseudomonas aeruginosa Staphylococcus aureus 04/16/23 MRSA Screen - Final, Complete 04/16/23 Blood Culture - Final, Complete No growth Assessment/Plan Assessment/Plan Assess & Plan/Chief Complaint An 87-year-old female with sepsis and hypertension of unknown etiology VSS WBC 7.6 Hgb 8.5 Plt 54 Small left apical PTX on x-ray however improved today and patient no symptomatic - repeat chest x-ray tomorrow AM Continue with pressure dressing and ice pack to left subclavin central line Continue with medical management ANA MARIA DE JESUS PUBLIC RELATIONS SPECIALIST Apr 23, 2023 11:11
--- NOTE | 2023-04-23 11:33 | Tele-ICU Progress Note ---
Subjective Date Seen by a Provider: Apr 23, 2023 Time Seen by a Provider: 11:30 Subjective/Events-last exam Tele-ICU Physician , Progress Note ) Service provided via interactive audio and video telecommunications E-CARE system to a patient admitted to ICU bed in [facility]. Patient is seen today due to persistent need of ICU care Available chart/ vitals / labs / Images reviewed Video assessment done using teleICU camera, rest of exam as per RN Discussed with RN Events overnight : Afebrile hemodynamically stable Respiratory - 4 l I/O = even Drips: Pressors- levo Hospital course: (7.9) Admitted a 87y/o with septic shock UTI from [place], R fem line 04/17- on magdy 250 , 3L nc 04/18- levo 04/19 - levo , vaso added 04/20- levo 0.05, vaso , lethargy 04/23 she is off of magdy and vasopressin this am. creatinin slighly worse A/P Shock septic - off IVF severe edema +severe hypoalbuminemia) - off of magdy and vasopressin gtt , CONSIDER midodrine too - but she is too lethargic to take po now - cont empiric abx ( zosyn 04/16 lethargy - improving h/o DVT , IVC filter in place -Coagulopathy INR 14 ( on coumadine - INR down to 1.4 with Vitamin K - restarted warfarin Hypoxia - 4L , cxr with atelectasis and worsening effusion Wound + MRSA prelim - on vanco , zosyn - for staph and psa infection Thrombocytropenia - new off lovenox. - will follow ( no HIPA w/up now Hypoglycemia - resolved to follow Speach eval - high risk for aspiration - NPO now - might need NG Pneumothorax left. iatrogenic getting smaller. no need for chest tube Lines : R femoral 04/16 , (Central Line Necessity Reviewed) s/p removal of femoral line and placement of left subclavian line. [place]: + OG: Nutrition: npo Analgesia: Anxiety/ delirium VTE Prophylaxis: warfarin Stress Ulcer Prophylaxis: na Plans in collaboration with bedside consultants and IM MDs. Discussed with RN to reach out if any questions or concerns A total of 25 minutes of critical care time was devoted to this patient today, required to treat and/or prevent further deterioration of critical care condition ( as above ) . I am remotely monitoring this patient from another state. I am unable to do the bedside exam, and history/physical and pertinent information is taken from other notes in the computer and bedside staff. . Sepsis Event Evaluation Height, Weight, BMI Height: 5'0.00" Weight: 123lbs. 0.0oz. [id number]; 40.60 BMI Method:Stated Exam Exam Patient acknowledged, consented, and participated in this virtual visit which was conducted using real time audio/video Vital Signs Date Time Temp Pulse Resp B/P (MAP) Pulse Ox O2 Delivery O2 Flow Rate FiO2 04/23/23 11:00 79 16 107/61 (78) 100 Nasal Cannula 4.00 04/23/23 10:00 82 15 111/55 (77) 100 Nasal Cannula 4.00 04/23/23 09:00 76 15 101/67 (82) 100 Nasal Cannula 4.00 04/23/23 08:00 78 15 96/56 (81) 100 Nasal Cannula 4.00 04/23/23 07:30 100 Nasal Cannula 4.00 04/23/23 07:30 36.6 04/23/23 07:00 71 14 118/62 (88) 100 Nasal Cannula 4.00 04/23/23 07:00 77 04/23/23 06:00 62 12 84/48 (60) 100 Nasal Cannula 4.00 04/23/23 05:40 72 97/56 04/23/23 05:00 62 13 88/46 (60) 100 Nasal Cannula 4.00 04/23/23 04:00 71 12 115/67 (83) 99 Nasal Cannula 4.00 04/23/23 03:38 100 Nasal Cannula 4.00 04/23/23 03:37 36.4 04/23/23 01:00 72 04/23/23 00:00 100 Nasal Cannula 4.00 04/23/23 00:00 71 12 97/56 (70) 100 Nasal Cannula 4.00 04/22/23 23:29 36.6 04/22/23 23:00 90 18 106/74 (85) 98 Nasal Cannula 4.00 04/22/23 22:00 97 23 111/73 (86) 94 Nasal Cannula 4.00 04/22/23 21:00 87 17 87/49 (62) 97 Nasal Cannula 4.00 04/22/23 20:00 94 Nasal Cannula 4.00 04/22/23 20:00 87 14 102/69 (80) 99 Nasal Cannula 4.00 04/22/23 19:39 36.4 04/22/23 19:00 73 04/22/23 19:00 74 14 109/59 (76) 100 Nasal Cannula 4.00 04/22/23 18:46 100 Nasal Cannula 1.00 04/22/23 18:00 86 13 94/55 (73) 100 Nasal Cannula 4.00 04/22/23 17:00 80 15 123/63 (83) 99 Nasal Cannula 4.00 04/22/23 16:00 Nasal Cannula 4.00 04/22/23 16:00 78 17 115/74 (87) Nasal Cannula 4.00 04/22/23 15:00 75 14 103/61 (77) 97 Nasal Cannula 4.00 04/22/23 14:00 74 13 105/86 (92) 98 Nasal Cannula 4.00 04/22/23 13:00 69 13 100/56 (77) 95 Nasal Cannula 4.00 04/22/23 12:24 75 04/22/23 12:20 Nasal Cannula 4.00 04/22/23 12:00 74 14 108/67 (84) 97 NIV Bilevel 35.00 04/22/23 12:00 Room Air 1.00 I & O 04/23/23 07:00 Intake Total 945 ml Output Total 310 ml Balance 635 ml Height & Weight Height: 5'0.00" Weight: 123lbs. 0.0oz. 55.778979lf; 40.60 BMI Method:Stated General Appearance: WD/WN HEENT: PERRL/EOMI, Normal ENT Inspection, Pharynx Normal Neck: Normal Inspection, Supple Respiratory: No Accessory Muscle Use, No Respiratory Distress Cardiovascular: No Murmur, Irregularly Irregular Capillary Refill: Less Than 3 Seconds Gastrointestinal: non tender, soft Extremity: Swelling (lower extermities) Neurologic/Psychiatric: Alert, Normal Mood/Affect Skin: Normal Color, Warm/Dry Results Lab Laboratory Tests 04/22/23 04:43 04/23/23 03:45 Assessment/Plan Assessment/Plan as above Critical Care: Critically Ill Patient Time spent with patient (mins): 25 SIENNA VILLATORO MD Apr 23, 2023 11:33
[2023-04-23] MEDS: HYDROcodone/APAP 5 MG/325 MG (LORTAB) TAB PO PRN (12:12)
[2023-04-23] MEDS: PHENYLEPHRINE DRIP 250 ML IV SCH (12:22)
[2023-04-23] MEDS ORDERED: RT-ALBUTEROL SULF 2.5 MG/3 ML PRE-MIX VIAL INH PRN (14:15)
[2023-04-23] MEDS: morphine INJ 4 MG/ML 1 ML (VIAL/SYRINGE) IV PRN ×2 (15:56→17:58)
[2023-04-23] MEDS: warFARin 1 MG (COUMADIN) TAB PO SCH (17:58)
[2023-04-23] MEDS: SODIUM CHLORIDE 14.6% INJ 70 MEQ, POTASSIUM ACETATE INJ 40 MEQ, POTASSIUM PHOSPHATE INJ... IV SCH ×10 (17:59)
[2023-04-23] MEDS: TOLTERODINE LA 2 MG (DETROL LA) CAP PO SCH (20:15)
[2023-04-24] MEDS: PHENYLEPHRINE DRIP 250 ML IV SCH ×2 (01:35→15:02)
[2023-04-24] MEDS: PIPERACILLIN SODIUM/TAZOBACTAM 4.5 GM in NS (IVPB) 100 ML IV SCH ×3 (04:15→20:08)
[2023-04-24 05:02] LABS: BASOPHILS % (AUTO) 0 % (0-10); HEMOGLOBIN 7.6 g/dL (11.5-16.0); MEAN CORPUSCULAR HEMOGLOBIN 33 pg (25-34); MONOCYTES % (AUTO) 6 % (0-12)
[2023-04-24 05:03] LABS: EOSINOPHILS # (AUTO) 0.2 10^3/uL (0.0-0.3); EOSINOPHILS % (AUTO) 2 % (0-10); HEMATOCRIT 25 % (35-52); LYMPHOCYTES % (AUTO) 11 % (12-44); MEAN CORPUSCULAR HGB CONC 30 g/dL (32-36); MEAN CORPUSCULAR VOLUME 108 fL (80-99); MEAN PLATELET VOLUME 12.5 fL (9.0-12.2); MONOCYTES # (AUTO) 0.6 10^3/uL (0.0-1.0); NEUTROPHILS # (AUTO) 7.5 10^3/uL (1.8-7.8); NEUTROPHILS % (AUTO) 80 % (42-75); PLATELET COUNT 51 10^3/uL (130-400); WHITE BLOOD COUNT 9.3 10^3/uL (4.3-11.0)
[2023-04-24 05:14] LABS: ALBUMIN 2.4 GM/DL (3.2-4.5); POTASSIUM 4.5 MMOL/L (3.6-5.0)
[2023-04-24 05:16] LABS: CALCIUM 8.4 MG/DL (8.5-10.1); INR 1.4 (0.8-1.4); PROTHROMBIN TIME PATIENT 16.8 SEC (12.2-14.7)
[2023-04-24 05:17] LABS: TOTAL PROTEIN 4.2 GM/DL (6.4-8.2)
[2023-04-24 05:18] LABS: BILIRUBIN,TOTAL 0.4 MG/DL (0.1-1.0)
[2023-04-24] MEDS: POTASSIUM CL 10MEQ/50ML IVPB 50 ML IV SCH (05:19)
[2023-04-24] MEDS: KCL 20 MEQ TAB (K-DUR) PO SCH (05:19)
[2023-04-24 05:20] LABS: CREATININE SERUM 1.47 MG/DL (0.60-1.30); PHOSPHORUS 3.3 MG/DL (2.3-4.7)
[2023-04-24 05:23] LABS: MAGNESIUM 2.1 MG/DL (1.6-2.4)
[2023-04-24] MEDS: MAGNESIUM 1 GM/100 ML IVPB 100 ML IV SCH (05:41)
[2023-04-24] MEDS: NS IV SCH ×2 (05:41→17:47)
[2023-04-24] MEDS: VASOPRESSIN IV SCH ×2 (05:41→17:47)
--- NOTE | 2023-04-24 09:23 | Diagnostic Imaging Report ---
EXAMINATION: CHEST 1 VIEW, AP/PA ONLY. INDICATION: Left-sided pneumothorax. COMPARISON: 04/23/2023. FINDINGS: Continued increased aeration throughout the left lung. There may be residual trace pneumothorax in the left lung apex. No mediastinal shift. Basilar opacities persist, likely on the basis of atelectasis or multifocal pneumonia. Left subclavian central venous catheter is in stable position. Grossly stable cardiac silhouette. Potential small layering left pleural effusion is unchanged. IMPRESSION: Decreased size and potential residual trace left apical pneumothorax. Dictated by: Dictated on workstation # [id number]
[2023-04-24] MEDS ORDERED: FUROSEMIDE 40 MG/4 ML INJ (LASIX) ONE (09:40)
[2023-04-24] MEDS: MUPIROCIN 2% OINT 22 GM (BACTROBAN) TUBE NSEACH SCH ×2 (09:42→20:09)
[2023-04-24] MEDS: VANCOMYCIN 750 MG/NS 250 ML IVPB IV SCH ×2 (09:46)
[2023-04-24] MEDS: DOCUSATE SODIUM 100 MG (COLACE) CAP PO SCH ×2 (09:47→20:58)
[2023-04-24] MEDS: SALIVA SUBSTITUTE 60 ML SPRAY(MOUTHKOTE) MM SCH ×2 (09:47→20:09)
[2023-04-24] MEDS: SENNOSIDES 8.6 MG (SENOKOT) TAB PO SCH ×2 (09:47→20:58)
[2023-04-24] MEDS: PANTOPRAZOLE 40 MG (PROTONIX) TAB PO SCH ×2 (09:48→20:10)
[2023-04-24] MEDS: MICONAZOLE 2% POWDER (DESENEX AF) 90 GM TOP SCH ×2 (09:48→20:10)
[2023-04-24] MEDS: FONDAPARINUX 10 MG/0.8 ML SQ SCH ×2 (09:48→12:53)
[2023-04-24] MEDS: FAMOTIDINE 20 MG (PEPCID) TABLET PO SCH (09:48)
[2023-04-24] MEDS: COLLAGENASE 30 GM (SANTYL) TUBE TP SCH ×2 (09:48→20:10)
[2023-04-24] MEDS ORDERED: FUROSEMIDE 40 MG/4 ML INJ (LASIX) IVP NR (10:00)
[2023-04-24] MEDS ORDERED: FONDAPARINUX 7.5 MG/0.6 ML SQ SCH (10:30)
--- NOTE | 2023-04-24 11:06 | Speech Therapy Daily Note ---
Speech Daily Progress Note Subjective Date Seen by Provider: Apr 24, 2023 Time Seen by Provider: 09:50 The patient was lying at an incline in bed, awake, upon entrance to the patient's room by the clinician. The patient makes eye contact with the clinician when her name is spoken and agreed to participation in the skilled dysphagia treatment session with a head nod. The patient's RN is present in the room for the treatment session. Objective The patient's RN provided the patient medication crushed in pudding while the clinician was present. With verbal prompting for slightly larger bite size (appropriate, half teaspoon), the patient consumed multiple boluses without s/s of suspected aspiration. Per RN, the patient has displayed reduced P.O. intake and appetite. The patient was agreeable to two straw drinks of thickened Ensure with verbal clinician encouragement (the patient shook her head "no" each time prior to agreeing). The patient does not display s/s of suspected aspiration with the limited P.O. trials. The patient politely deferred any additional P.O. items at this time. Continue with the current plan of care, as appropriate. Assessment Assessment Current Status: Fair Progress Treatment Plan Continue Plan of Care Speech Short Term Goals Short Term Goals Short Term Goals 1. The patient, staff, and family members will demonstrate safe swallowing precautions with 90% accuracy, independently. Time Frame-STG: Five Days. Speech Rotoformer Backtender Goals Chcf Goals 1. The patient will tolerate the least restrictive diet consistency without s/s of suspected aspiration. Time Frame: One Week. Speech-Plan Treatment Plan Speech Therapy Treatment Plan: Continue Plan of Care Treatment Duration: Apr 28, 2023 Frequency: 3 times per week Estimated Hrs Per Day: .25 hour per day Rehab Potential: Poor Pt/Family Agrees to Plan: Yes Safety Risks/Education Teaching Recipient: Patient Teaching Methods: Discussion Response to Teaching: Unable to Comprehend Education Topics Provided: Safe Swallowing Precautions Time Speech Therapy Time In: 09:50 Speech Therapy Time Out: 10:00 DATE: Apr 24, 2023 Total Billed Time: 10 Billed Treatment Time RAZ Serrano ELIZABETH Apr 24, 2023 11:06
[2023-04-24] MEDS: NOREPINEPHRINE 8 MG/250 ML 250 ML IV SCH (12:05)
[2023-04-24] MEDS ORDERED: NS IV 500 ML 500 ML IV SCH (12:15)
[2023-04-24 14:04] VITALS: BP 90/57
[2023-04-24] MEDS: morphine INJ 4 MG/ML 1 ML (VIAL/SYRINGE) IV PRN ×2 (14:17→20:11)
[2023-04-24 14:19] VITALS: BP 99/81
--- NOTE | 2023-04-24 16:52 | Progress Note - Hospitalist ---
Subjective HPI/CC On Admission Date Seen by Provider: Apr 24, 2023 Time Seen by Provider: 09:15 Patient is an 87-year-old female who presented to the emergency department due to near syncope. She resides in a local long term and staff reported to EMS that she was nodding off for several seconds while having a conversation which is abnormal for her. She was found to be quite hypotensive in the emergency department. She has no complaints to me nor did she for the emergency department though there was mention of a sore on her bottom that has been present for quite a while. Labs revealed leukocytosis there was concern for sepsis so she was admitted for further evaluation. Throughout the night her blood pressures dropped further and she was transferred to the ICU for vasopressor support. This morning she is awake and alert but is still quite hypotensive. Subjective/Events-last exam She is laying in bed. Her daughter and granddaughter are at the bedside. She denies pain. She feels short of breath. Objective Exam Vital Signs Vital Signs Date Time Temp Pulse Resp B/P (MAP) Pulse Ox O2 Delivery O2 Flow Rate FiO2 04/24/23 16:38 36.5 04/24/23 15:02 85 99/81 04/24/23 14:19 20 Nasal Cannula 5.00 04/24/23 14:04 99 Capillary Refill : Less Than 3 Seconds General Appearance: No Apparent Distress, Chronically ill Respiratory: Decreased Breath Sounds, Respiratory Distress (tachypnea) Cardiovascular: Regular Rate, Rhythm, No Murmur Gastrointestinal: Normal Bowel Sounds, Soft Extremity: Normal Inspection, Pedal Edema Neurologic/Psychiatric: Alert, Depressed Affect, Disoriented Skin: Warm/Dry, Pallor Results/Procedures Lab Laboratory Tests 04/24/23 04:55 Patient resulted labs reviewed. Imaging: Reviewed Imaging Films, Reviewed Imaging Report Assessment/Plan Assessment and Plan Assess & Plan/Chief Complaint Septic Shock- POA Sacral ulcer Debility Advanced age Poor prognosis Etiology likely her wound Continue antibiotics MRSA in nares and wound- continue vanc Off pressors Surgery placed new central line 04/22 Wound care following PAUL BUN/Cr trending up Urine output low Lasix Supratherapuetic INR, resolved A fib Heparin induced thrombocytopenia INR subtherapeutic, continue coumadin Decreased dose fondaparinux Heme/onc following Acute on chronic respiratory failure Off BiPAP, not tolerating Supplemental oxygen via nasal cannula Dysphagia Speech following TPN ordered Poot oral intake DVT ppx; fondaparinux Critical Care Critically Ill Patient Diagnosis/Problems Diagnosis/Problems (1) Septic shock Status: Acute (2) Sacral decubitus ulcer Status: Acute (3) Advanced age Status: Acute (4) Poor prognosis Status: Acute (5) PAUL (acute kidney injury) Status: Acute (6) Afib Status: Chronic (7) On Coumadin for atrial fibrillation Status: Chronic (8) Supratherapeutic INR Status: Resolved Resolution Date/Time: 04/24/23 @ 16:54 (9) Subtherapeutic international normalized ratio (INR) Status: Acute (10) HIT (heparin-induced thrombocytopenia) Status: Acute (11) Dysphagia Status: Acute (12) Malnutrition Status: Acute Qualifiers: Malnutrition type: protein-calorie malnutrition (13) Anemia Status: Acute (14) Debility Status: Acute VARGHESE TIMMONS MD Apr 24, 2023 16:52
[2023-04-24 17:19] VITALS: BP 95/66
[2023-04-24] MEDS: SODIUM CHLORIDE 14.6% INJ 70 MEQ, POTASSIUM ACETATE INJ 40 MEQ, POTASSIUM PHOSPHATE INJ... IV SCH ×10 (18:11)
[2023-04-24] MEDS: warFARin 1 MG (COUMADIN) TAB PO SCH (18:11)
[2023-04-24] MEDS: TOLTERODINE LA 2 MG (DETROL LA) CAP PO SCH (20:20)
[2023-04-25] MEDS: NOREPINEPHRINE 8 MG/250 ML 250 ML IV SCH (03:12)
[2023-04-25] MEDS: PIPERACILLIN SODIUM/TAZOBACTAM 4.5 GM in NS (IVPB) 100 ML IV SCH (03:47)
[2023-04-25] MEDS: PHENYLEPHRINE DRIP 250 ML IV SCH (04:30)
[2023-04-25 04:50] LABS: BASOPHILS % (AUTO) 0 % (0-10); EOSINOPHILS % (AUTO) 0 % (0-10); HEMATOCRIT 29 % (35-52); HEMOGLOBIN 8.9 g/dL (11.5-16.0); LYMPHOCYTES # (AUTO) 0.6 10^3/uL (1.0-4.0); LYMPHOCYTES % (AUTO) 4 % (12-44); MEAN CORPUSCULAR HEMOGLOBIN 32 pg (25-34); MEAN CORPUSCULAR HGB CONC 31 g/dL (32-36); MEAN CORPUSCULAR VOLUME 104 fL (80-99); MEAN PLATELET VOLUME 12.8 fL (9.0-12.2); MONOCYTES # (AUTO) 0.6 10^3/uL (0.0-1.0); MONOCYTES % (AUTO) 4 % (0-12); NEUTROPHILS # (AUTO) 12.7 10^3/uL (1.8-7.8); NEUTROPHILS % (AUTO) 89 % (42-75); PLATELET COUNT 87 10^3/uL (130-400); WHITE BLOOD COUNT 14.2 10^3/uL (4.3-11.0)
[2023-04-25 04:58] LABS: ALBUMIN 2.4 GM/DL (3.2-4.5)
[2023-04-25 04:59] LABS: POTASSIUM 4.7 MMOL/L (3.6-5.0)
[2023-04-25 05:00] LABS: CALCIUM 8.6 MG/DL (8.5-10.1); INR 1.3 (0.8-1.4); PROTHROMBIN TIME PATIENT 16.6 SEC (12.2-14.7)
[2023-04-25 05:01] LABS: TOTAL PROTEIN 4.7 GM/DL (6.4-8.2)
[2023-04-25 05:03] LABS: BILIRUBIN,TOTAL 0.4 MG/DL (0.1-1.0)
[2023-04-25 05:05] LABS: CREATININE SERUM 1.49 MG/DL (0.60-1.30)
[2023-04-25 05:07] LABS: MAGNESIUM 2.2 MG/DL (1.6-2.4)
[2023-04-25] MEDS: MAGNESIUM 1 GM/100 ML IVPB 100 ML IV SCH (05:26)
[2023-04-25] MEDS: POTASSIUM CL 10MEQ/50ML IVPB 50 ML IV SCH (05:26)
[2023-04-25] MEDS: VASOPRESSIN IV SCH (05:26)
[2023-04-25] MEDS: KCL 20 MEQ TAB (K-DUR) PO SCH (05:26)
[2023-04-25] MEDS: NS IV SCH (05:26)
[2023-04-25 09:24] VITALS: BP 105/58
[2023-04-25] MEDS: COLLAGENASE 30 GM (SANTYL) TUBE TP SCH (10:41)
[2023-04-25] MEDS: PANTOPRAZOLE 40 MG (PROTONIX) TAB PO SCH (10:43)
[2023-04-25] MEDS: FAMOTIDINE 20 MG (PEPCID) TABLET PO SCH (10:43)
[2023-04-25] MEDS: MICONAZOLE 2% POWDER (DESENEX AF) 90 GM TOP SCH (10:43)
[2023-04-25] MEDS: SENNOSIDES 8.6 MG (SENOKOT) TAB PO SCH (10:43)
[2023-04-25] MEDS: FONDAPARINUX 10 MG/0.8 ML SQ SCH (10:43)
[2023-04-25] MEDS: DOCUSATE SODIUM 100 MG (COLACE) CAP PO SCH (10:44)
[2023-04-25] MEDS: SALIVA SUBSTITUTE 60 ML SPRAY(MOUTHKOTE) MM SCH (10:45)
--- NOTE | 2023-04-25 12:10 | Speech Therapy Progress Note ---
Therapy Progress Note Speech pathology attempted skilled dysphagia treatment at 1100 on this date. At this time, several family members are present at the patient's bedside. The patient displays increased respiratory discomfort (family members state the RN is aware). The clinician does not deem the patient safe or appropriate for P.O. intake at this time. The clinician recommends the patient be placed N.P.O. pending improvement. The recommendation was provided to the present family mem bers by the clinician. The family members request to speak to the social worker psychiatric therefore the social worker psychiatric was contacted by the present physical therapist. The clinician provided the update to a RN following the discussion, who stated she would update Kizzy once she completed care in a neighboring room. ST will continue to follow the patient throughout acute hospitalization. ST requested contact with any additional changes. MADDIE HUIZAR Apr 25, 2023 12:10
--- NOTE | 2023-04-25 12:54 | Physical Therapy Progress Note ---
Therapy Progress Note The patient displays increased respiratory discomfort (family members state the RN is aware). Family request to talk with SW on options of continued care, i.e. comfort care, palliative, etc. PT will reassess tomorrow DECLAN Loya PT Apr 25, 2023 12:54
[2023-04-25] MEDS ORDERED: PROMETHAZINE INJ 25 MG/ML (PHENERGAN) AMP IVP PRN (13:00)
[2023-04-25] MEDS ORDERED: ARTIFICAL TEARS 0.4 ML UNIT DOSE (REFRESH PLUS) OU PRN (13:00)
[2023-04-25] MEDS ORDERED: ONDANSETRON 4 MG/2 ML (SDV) Z0FRAN IVP PRN (13:00)
[2023-04-25] MEDS ORDERED: SALIVA SUBSTITUTE 60 ML SPRAY(MOUTHKOTE) MM PRN (13:00)
[2023-04-25] MEDS ORDERED: RT-ALBUTEROL/IPRATROPIUM 3 ML (DUONEB) VIAL INH PRN (13:00)
[2023-04-25] MEDS ORDERED: ACETAMINOPHEN 650 MG SUPP (TYLENOL) PR PRN (13:00)
[2023-04-25] MEDS ORDERED: LORazepam 1 MG (ATIVAN) TAB SL PRN (13:00)
[2023-04-25] MEDS ORDERED: morphine INJ 4 MG/ML 1 ML (VIAL/SYRINGE) IV PRN (13:00)
[2023-04-25] MEDS ORDERED: GLYCOPYRROLATE 0.2 MG/ML (ROBINUL) 2 ML VIAL IV PRN (13:00)
[2023-04-25] MEDS ORDERED: BISACODYL 10 MG SUPP (DULCOLAX) PR PRN (13:00)
--- NOTE | 2023-04-25 13:24 | Occ Therapy Progress Note ---
Therapy Progress Note The patient displays increased respiratory discomfort (family members state the RN is aware). Family request to talk with SW on options of continued care, i.e. comfort care, palliative, etc. OT will reassess tomorrow BRUNA Otero OT Apr 25, 2023 13:24
--- NOTE | 2023-04-25 13:32 | Tele-ICU Progress Note ---
Subjective Date Seen by a Provider: Apr 25, 2023 Time Seen by a Provider: 13:29 Subjective/Events-last exam Tele-ICU Physician , Progress Note Service provided via interactive audio and video telecommunications E-CARE syst em to a patient admitted to ICU bed in [facility]. Patient is seen today due to persistent need of ICU care Available chart/ vitals / labs / Images reviewed Video assessment done using teleICU camera, rest of exam as per RN Discussed with RN Events overnight : Afebrile hemodynamically stable Respiratory - 3L I/O = even Drips: Pressors- off Hospital course: 04/16- Admitted a 87y/o with septic shock UTI from [place], R fem line 04/17- on magdy 250 , 3L nc 04/18- levo 04/19- levo, vaso added 04/20- levo 0.05, vaso , lethargy 04/23 she is off of magdy and vasopressin this am. creatinine slighly worse 04/25:Worsening mental status and labs notable for worsening BUN/Creatinine with decreasing UOP. Likely toxic metabolic encephalopathy Plans to discuss with family re: GOC. A/P Shock septic: Resolved. Off pressors. - off IVF severe edema +severe hypoalbuminemia) - off of magdy and vasopressin gtt , CONSIDER midodrine too - but she is too lethargic to take po now - At this time will contempiric abx (Zosyn 04/16) and await final bld cx. AMS: LIkely toxic metabolic encephalopathy -Worsening BUN to 60 (was 20 on ) H/o DVT, IVC filter in place - INR down to 1.4 with Vitamin K - restarted warfarin Hypoxia -3L -cxr with atelectasis and worsening effusion Wound + MRSA prelim - on vanco , zosyn - for staph and psa infection Thrombocytropenia -new -off lovenox -will follow ( no HIPA w/up now Hypoglycemia -resolved Speech eval - high risk for aspiration - NPO now - might need NG Pneumothorax/left- iatrogenic -No intervention at this time given size Lines : R femoral 04/16 , (Central Line Necessity Reviewed) s/p removal of femoral line and placement of left subclavian line. [place]: + OG: Nutrition: npo Analgesia: Anxiety/ delirium VTE Prophylaxis: warfarin Stress Ulcer Prophylaxis: n/a Plans in collaboration with bedside consultants and IM MDs. Discussed with RN to reach out if any questions or concerns A total of 25 minutes of critical care time was devoted to this patient today, required to treat and/or prevent further deterioration of critical care condition (as above) . I am remotely monitoring this patient from another state. I am unable to do the bedside exam, and history/physical and pertinent information is taken from other notes in the computer and bedside staff. . Sepsis Event Evaluation Height, Weight, BMI Height: 5'0.00" Weight: 123lbs. 0.0oz. 55.914797wo; 42.15 BMI Method:Stated Exam Exam Patient acknowledged, consented, and participated in this virtual visit which was conducted using real time audio/video Vital Signs Date Time Temp Pulse Resp B/P (MAP) Pulse Ox O2 Delivery O2 Flow Rate FiO2 04/25/23 12:00 104 31 119/71 (87) 94 Nasal Cannula 5.00 04/25/23 11:55 Nasal Cannula 5.00 04/25/23 11:43 36.6 04/25/23 11:00 102 28 108/66 (80) 95 Nasal Cannula 3.00 04/25/23 10:00 101 29 114/64 (81) 99 Nasal Cannula 3.00 04/25/23 09:24 36.2 97 97 32 04/25/23 09:00 100 28 116/70 (85) 97 Nasal Cannula 3.00 04/25/23 08:53 97 Nasal Cannula 3.00 04/25/23 08:46 99 Nasal Cannula 4.00 04/25/23 08:15 96 Nasal Cannula 5.00 04/25/23 08:00 86 36 110/71 (84) 100 Nasal Cannula 4.00 04/25/23 07:35 36.2 04/25/23 07:00 97 04/25/23 07:00 85 18 104/62 (76) 97 Nasal Cannula 6.00 04/25/23 06:00 90 29 105/58 (78) 96 Nasal Cannula 6.00 04/25/23 05:30 92 28 109/70 (87) 96 Nasal Cannula 6.00 04/25/23 05:00 91 27 109/68 (87) 98 Nasal Cannula 6.00 04/25/23 04:30 88 33 120/63 (81) 95 Nasal Cannula 6.00 04/25/23 04:00 36.3 04/25/23 04:00 86 109/66 (86) 92 Nasal Cannula 6.00 04/25/23 03:53 5 Nasal Cannula 6.00 04/25/23 03:30 92 31 116/67 (86) 93 Nasal Cannula 6.00 04/25/23 03:00 91 21 114/67 (87) 94 Nasal Cannula 6.00 04/25/23 02:30 95 28 123/67 (98) 93 Nasal Cannula 5.00 04/25/23 02:00 106 24 117/75 (94) 94 Nasal Cannula 5.00 04/25/23 01:30 95 27 123/71 (91) 94 Nasal Cannula 5.00 04/25/23 01:00 98 27 117/66 (93) 96 Nasal Cannula 5.00 04/25/23 01:00 85 04/25/23 00:30 86 28 112/63 (90) 94 Nasal Cannula 5.00 04/25/23 00:30 96 Nasal Cannula 5.00 04/25/23 00:00 103 28 125/76 (92) 96 Nasal Cannula 5.00 04/25/23 00:00 36.3 04/24/23 23:30 94 26 113/75 (90) 100 Nasal Cannula 5.00 04/24/23 23:00 70 17 86/45 (70) 100 Nasal Cannula 5.00 04/24/23 22:30 77 15 90/53 (68) 100 Nasal Cannula 5.00 04/24/23 22:02 72 14 87/47 (68) 100 Nasal Cannula 5.00 04/24/23 22:00 74 15 89/42 (59) 98 Nasal Cannula 5.00 04/24/23 21:20 71 16 101/55 (75) 100 Nasal Cannula 5.00 04/24/23 21:00 80 17 82/52 (66) 100 Nasal Cannula 5.00 04/24/23 20:00 90 16 113/70 (88) 100 Nasal Cannula 5.00 04/24/23 19:42 100 Nasal Cannula 5.00 04/24/23 19:31 36.4 Nasal Cannula 5.00 04/24/23 19:00 82 04/24/23 19:00 82 9 115/57 (86) 99 Nasal Cannula 5.00 04/24/23 18:00 67 16 108/61 (77) 100 Nasal Cannula 5.00 04/24/23 17:47 67 108/61 04/24/23 17:19 36.2 93 29 95/66 100 Nasal Cannula 5.00 04/24/23 17:00 84 15 95/65 (75) 100 Nasal Cannula 5.00 04/24/23 16:38 36.5 04/24/23 16:00 98 Nasal Cannula 5.00 04/24/23 16:00 86 25 102/61 (75) 100 Nasal Cannula 5.00 04/24/23 15:02 85 99/81 04/24/23 15:00 87 33 106/67 (80) 95 Nasal Cannula 5.00 04/24/23 14:19 36.5 85 20 99/81 Nasal Cannula 5.00 04/24/23 14:04 36.5 92 18 90/57 99 Nasal Cannula 5.00 04/24/23 14:00 77 17 118/61 (80) 100 Nasal Cannula 5.00 I & O 04/25/23 07:00 Intake Total 150 ml Output Total 720 ml Balance -570 ml Height & Weight Height: 5'0.00" Weight: 123lbs. 0.0oz. 55.534231xn; 42.15 BMI Method:Stated General Appearance: No Apparent Distress, Chronically ill HEENT: PERRL/EOMI, Normal ENT Inspection, Pharynx Normal Neck: Normal Inspection, Supple Respiratory: Decreased Breath Sounds, Respiratory Distress (tachypnea) Cardiovascular: Regular Rate, Rhythm, No Murmur Capillary Refill: Less Than 3 Seconds Gastrointestinal: non tender, soft Extremity: Normal Inspection, Pedal Edema Neurologic/Psychiatric: Alert, Depressed Affect, Disoriented Skin: Warm/Dry, Pallor Results Lab Laboratory Tests 04/24/23 04:55 04/25/23 04:40 Assessment/Plan Assessment/Plan . RAVIN SHABAZZ MD Apr 25, 2023 13:32
[2023-04-25] MEDS ORDERED: POTASSIUM ACETATE IV SCH ×10 (17:00)
[2023-04-25] MEDS ORDERED: [UNRECOGNIZED DRUG - OTHER] IV SCH ×10 (17:00)
[2023-04-25] MEDS ORDERED: SODIUM CHLORIDE IV SCH ×10 (17:00)
--- NOTE | 2023-04-25 18:27 | Discharge Summary ---
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 (11) Dysphagia Status: Acute (12) Malnutrition Status: Acute Qualifiers: (13) Anemia Status: Acute (14) Debility Status: Acute Hospital Course Date of Admission: Apr 16, 2023 at 18:27 Admission Diagnosis : Family Physician/Provider: Kashmir Lyons MD Date of Discharge: 04/25/23 Discharge Diagnosis: [ ] Hospital Course: [ ] Labs and Pending Lab Test: Laboratory Tests 04/24/23 23:58: Glucometer 179H 04/25/23 04:40: White Blood Count 14.2H, Red Blood Count 2.77L, Hemoglobin 8.9L, Hematocrit 29L, Mean Corpuscular Volume 104H, Mean Corpuscular Hemoglobin 32, Mean Corpuscular Hemoglobin Concent 31L, Red Cell Distribution Width 20.1H, Platelet Count 87L, Mean Platelet Volume 12.8H, Immature Granulocyte % (Auto) 2, Neutrophils (%) (Auto) 89H, Lymphocytes (%) (Auto) 4L, Monocytes (%) (Auto) 4, Eosinophils (%) (Auto) 0, Basophils (%) (Auto) 0, Neutrophils # (Auto) 12.7H, Lymphocytes # (Auto) 0.6L, Monocytes # (Auto) 0.6, Eosinophils # (Auto) 0.0, Basophils # (Auto) 0.0, Immature Granulocyte # (Auto) 0.3H, Prothrombin Time 16.6H, INR Comment 1.3, Sodium Level 142, Potassium Level 4.7, Chloride Level 112H, Carbon Dioxide Level 23, Anion Gap 7, Blood Urea Nitrogen 60H, Creatinine 1.49H, Estimat Glomerular Filtration Rate 34, BUN/Creatinine Ratio 40, Glucose Level 212H, Calcium Level 8.6, Corrected Calcium 9.9, Phosphorus Level 4.0, Magnesium Level 2.2, Total Bilirubin 0.4, Aspartate Amino Transf (AST/SGOT) 14, Alanine Aminotransferase (ALT/SGPT) 10, Alkaline Phosphatase 63, Total Protein 4.7L, Albumin 2.4L 04/25/23 13:43: Lab Scanned Report Transfusion Reaction Form Microbiology 04/22/23 Catheter Tip Culture - Preliminary, Resulted No growth 04/19/23 Gram Stain - Final, Complete 04/19/23 Wound Culture - Final, Complete Mixed Bacterial Zina Pseudomonas aeruginosa Staphylococcus aureus 04/16/23 MRSA Screen - Final, Complete Home Meds Active Loteprednol Etabonate 0.5 % Drops.gel 1 Drop OD DAILY Calcium 600 + Vit D 400 Tablet (Calcium Carbonate/Vitamin D3) 600 Mg Calcium-10 Mcg (400 Unit) Tablet 1 Each PO BID Ondansetron HCl 8 Mg Tablet 8 Mg PO Q8H PRN Lokelma (Sodium Zirconium Cyclosilicate) 5 Gram Powd.pack 5 Gm PO Q48H Tolterodine Tartrate ER (Tolterodine Tartrate) 2 Mg Cap.er.24h 2 Mg PO HS Tylenol Extra Strength (Acetaminophen) 500 Mg Tablet 500 Mg PO TID Oxycodone-Acetaminophen 10-325 (Oxycodone HCl/Acetaminophen) 10 Mg-325 Mg Tablet 1 Ea PO 1000,1800 Gabapentin 100 Mg Capsule 100 Mg PO DAILY Bisacodyl 5 Mg Tablet.dr 10 Mg PO DAILY PRN Famotidine 20 Mg Tablet 20 Mg PO BID Vitamin D3 (Cholecalciferol (Vitamin D3)) 125 Mcg (5000 Unit) Tablet 125 Mcg PO DAILY Biotene Moisturizing Mouth (Saliva Stimulant Agents Comb.3) 1 Each [place] 1 [place] MM BID Colace (Docusate Sodium) 100 Mg Capsule 100 Mg PO BID Gabapentin 800 Mg Tablet 800 Mg PO TIDWM Morphine Sulfate ER (Morphine Sulfate) 30 Mg Tablet.er 30 Mg PO BID Movantik (Naloxegol Oxalate) 25 Mg Tablet 25 Mg PO DAILY Pantoprazole Sodium 40 Mg Tablet.dr 40 Mg PO BID Artificial Tears Drops (Polyvinyl Alcohol/Povidone) 0.5 %-0.6 % Drops 1 Drop OU Q4H PRN Reported Polyvinyl Alcohol 1.4 % Drops 1 Drop OU BID Warfarin Sodium 2 Mg Tablet 2 Mg PO FRI GIVE AT 1700 Warfarin Sodium 1 Mg Tablet 1 Mg PO PAN,MO,,,, GIVE AT 1700 Benadryl Allergy (Diphenhydramine HCl) 25 Mg Tablet 25 Mg PO BID PRN Discharge Physical Examination Vital Signs Vital Signs Date Time Temp Pulse Resp B/P (MAP) Pulse Ox O2 Delivery O2 Flow Rate FiO2 04/25/23 14:35 36.6 04/25/23 13:00 102 04/25/23 12:00 96 Nasal Cannula 5.00 04/25/23 12:00 31 119/71 (87) 04/25/23 09:24 32 Allergies: Coded Allergies: adhesive tape (Verified Allergy, Mild, RASH, 08/29/20) aspirin (Verified Allergy, Unknown, 08/29/20) heparin (Verified Allergy, Unknown, HIT, 04/23/23) meperidine (Verified Allergy, Unknown, 08/29/20) nitrofurantoin (Verified Allergy, Unknown, 08/29/20) Uncoded Allergies: SURGICAL TAPE (Allergy, Unknown, 05/14/07) Copy Copies To 1: KASHMIR LYONS MD Discharge Summary Date of Admission Apr 16, 2023 at 18:27 Date of Discharge Apr 25, 2023 at 15:17 Discharge Date: Apr 25, 2023 Discharge Time: 15:17 Admission Diagnosis Hypotension Comfort Measures/ End of Life Care: Comfort Measures Advance Care discuss with: patient, family member (s) Plan: initiate discussion, clarifying prognosis, identified end-of-life goals, developed treatment plan Cardiopulmonary Arrest: Cardiorespiratory Arrest Date of : Apr 25, 2023 Time of : 15:17 Discharge Diagnosis Septic Shock Sacral ulcer Debility Advanced age Poor prognosis PAUL Supratherapuetic INR, resolved A fib Heparin induced thrombocytopenia Acute on chronic respiratory failure Dysphagia (1) Septic shock Status: Acute (2) Sacral decubitus ulcer Status: Acute (3) Advanced age Status: Acute (4) Poor prognosis Status: Acute (5) PAUL (acute kidney injury) Status: Acute (6) Afib Status: Chronic (7) On Coumadin for atrial fibrillation Status: Chronic (8) Supratherapeutic INR Status: Resolved (9) Subtherapeutic international normalized ratio (INR) Status: Acute (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
[2023-04-25] MEDS ORDERED: RT-ALBUTEROL SULF 2.5 MG/3 ML PRE-MIX VIAL INH SCH (21:00)
[2023-04-26] MEDS ORDERED: TROUGH ORDER-PHARMACY XX ONE (08:00)
[2023-04-26] MEDS ORDERED: FONDAPARINUX 5 MG/0.4 ML SQ SCH (09:00)
--- NOTE | 2023-04-26 09:39 | Occ Therapy Progress Note ---
Therapy Progress Note Patient will transition to comfort care. Please discontinue OT services BRUNA BLOCK OT Apr 26, 2023 09:39
== END 2023-04-25 15:17 | disposition expired | DRG 871 ==
LOC: EDUNIT# 16:17 → ER 16:19 → CSD 18:27 → ICU 19:50
PROVIDERS: ADMIT Internal Medicine; ATTEND Internal Medicine
PROC: 02HV33Z Insertion of Infusion Device into Superior Vena Cava, Percutaneous Approach (ICD-10-PCS; principal; 2023-04-22)
PROC: 5A09357 Assistance with Respiratory Ventilation, Less than 24 Consecutive Hours, Continuous Positive Airway Pressure (ICD-10-PCS; 2023-04-23)
DX: A41.9 Sepsis, unspecified organism (principal); E43 Unspecified severe protein-calorie malnutrition; R65.21 Severe sepsis with septic shock; G92.9 Unspecified toxic encephalopathy; J96.21 Acute and chronic respiratory failure with hypoxia; N17.9 Acute kidney failure, unspecified; I48.20 Chronic atrial fibrillation, unspecified; N39.0 Urinary tract infection, site not specified; J93.9 Pneumothorax, unspecified; Z68.41 Body mass index [BMI] 40.0-44.9, adult; D75.829 Heparin-induced thrombocytopenia, unspecified; R13.10 Dysphagia, unspecified; Z79.01 Long term (current) use of anticoagulants; N18.30 Chronic kidney disease, stage 3 unspecified; F03.90 Unspecified dementia, unspecified severity, without behavioral disturbance, psychotic disturbance, mood disturbance, and anxiety; L89.150 Pressure ulcer of sacral region, unstageable; Z66 Do not resuscitate; R32 Unspecified urinary incontinence; Z79.899 Other long term (current) drug therapy; J43.9 Emphysema, unspecified; Z86.718 Personal history of other venous thrombosis and embolism; K21.9 Gastro-esophageal reflux disease without esophagitis; Z96.653 Presence of artificial knee joint, bilateral; Z96.641 Presence of right artificial hip joint; M81.0 Age-related osteoporosis without current pathological fracture; H40.9 Unspecified glaucoma; F41.9 Anxiety disorder, unspecified; F32.A Depression, unspecified; I12.9 Hypertensive chronic kidney disease with stage 1 through stage 4 chronic kidney disease, or unspecified chronic kidney disease; E16.2 Hypoglycemia, unspecified; D69.6 Thrombocytopenia, unspecified; Z51.5 Encounter for palliative care
CPT/HCPCS: 36415; 36600; 71045; 80053; 80202; 81000; 82805; 82947; 83605; 83735; 84100; 84134; 84478; 85007; 85025; 85027; 85610; 85730; 86850; 86900; 86901; 86920; 87040; 87070; 87077; 87081; 87186; 87205; 93005; 94660